=== PATIENT | male | born 1940 | race American Indian/Alaskan Native ===

== ENCOUNTER 2017-06-11 10:04 | Outpatient (CLI) | payer MEDICARE, OTHER ==
[2017-06-11 10:44] LABS: BASOPHILS % (AUTO) 0.6 %; EOSINOPHILS # (AUTO) 0.1 10^3/uL (0.0-0.7); HCT - HEMATOCRIT 38.1 % (42.0-52.0); HGB - HEMOGLOBIN 12.9 g/dL (14.0-18.0); LYMPHOCYTES # (AUTO) 1.7 10^3/uL (1.5-3.5); LYMPHOCYTES % (AUTO) 27.5 %; MEAN CORPUSCULAR HEMOGLOBIN 32.4 pg (27.0-31.0); MEAN CORPUSCULAR HGB CONC 33.9 g/dL (32.0-36.0); MEAN CORPUSCULAR VOLUME 95.5 fL (80.0-94.0); MEAN PLATELET VOLUME 8.8 fL (7.4-11.4); MONOCYTES # (AUTO) 0.6 10^3/uL (0.0-1.0); MONOCYTES % (AUTO) 9.6 %; NEUTROPHILS # (AUTO) 3.7 10^3/uL (1.5-6.6); NEUTROPHILS % (AUTO) 60.3 %; NUCLEATED RED BLOOD CELLS AUTO 0.2 /100WBC; RED BLOOD COUNT 3.99 10^6/uL (4.70-6.10); RED CELL DISTRIBUTION WIDTH 14.2 % (12.0-15.0); UNCORRECTED WHITE BLOOD COUNT 6.1 x10^3/uL; WHITE BLOOD COUNT 6.1 x10^3/uL (4.8-10.8)
[2017-06-11 10:58] LABS: PLATELET ESTIMATE, MANUAL NORMAL (130-450,000) (NORMAL); PLATELET MORPHOLOGY NORMAL APPEARANCE (NORMAL)
[2017-06-11 11:10] LABS: ALBUMIN/GLOBULIN RATIO 1.4 (1.0-2.2); BILIRUBIN,TOTAL 0.5 mg/dL (0.2-1.0); BUN - BLOOD UREA NITROGEN 24 mg/dL (6-20); CALCIUM 9.2 mg/dL (8.5-10.3); CARBON DIOXIDE - CO2 30 mmol/L (21-32); CHLORIDE 105 mmol/L (101-111); GFR - MDRD 72 (>89); GLUCOSE 103 mg/dL (70-100); POTASSIUM 4.2 mmol/L (3.5-5.0); SODIUM 141 mmol/L (135-145); TOTAL PROTEIN 6.9 g/dL (6.7-8.2)
== END 2017-06-11 10:05 | disposition home or self-care (01) ==
LOC: LAB 10:04
PROVIDERS: ATTEND Psychiatry & Neurology Neurology
DX: G40.109 Localization-related (focal) (partial) symptomatic epilepsy and epileptic syndromes with simple partial seizures, not intractable, without status epilepticus (principal); C61 Malignant neoplasm of prostate; G43.109 Migraine with aura, not intractable, without status migrainosus; T88.7XXA Unspecified adverse effect of drug or medicament, initial encounter; R20.2 Paresthesia of skin
CPT/HCPCS: 36415; 80053; 80164; 82140; 84153; 85025

== ENCOUNTER 2017-07-24 10:17 | Outpatient (CLI) | payer MEDICARE, OTHER | END 2017-07-24 10:18 | disposition critical access hospital (66) | LOC: EMS 10:17 | PROVIDERS: ATTEND Surgery | DX: R53.1 Weakness (principal); R26.2 Difficulty in walking, not elsewhere classified; R51 Headache | CPT/HCPCS: A0425; A0427 ==

== ENCOUNTER 2017-07-24 10:33 | Emergency (ER) | payer MEDICARE, OTHER ==
[2017-07-24 12:28] LABS: ALBUMIN/GLOBULIN RATIO 1.4 (1.0-2.2); BILIRUBIN,TOTAL 0.7 mg/dL (0.2-1.0); CALCIUM 8.8 mg/dL (8.5-10.3); CREATININE 0.8 mg/dL (0.6-1.2); POTASSIUM 3.9 mmol/L (3.5-5.0); TOTAL PROTEIN 6.6 g/dL (6.7-8.2)
[2017-07-24 12:30] LABS: BASOPHILS % (AUTO) 0.7 %; EOSINOPHILS % (AUTO) 0.5 %; HCT - HEMATOCRIT 36.8 % (42.0-52.0); HGB - HEMOGLOBIN 12.6 g/dL (14.0-18.0); LYMPHOCYTES # (AUTO) 1.3 10^3/uL (1.5-3.5); LYMPHOCYTES % (AUTO) 20.2 %; MEAN CORPUSCULAR HEMOGLOBIN 32.5 pg (27.0-31.0); MEAN CORPUSCULAR HGB CONC 34.3 g/dL (32.0-36.0); MEAN CORPUSCULAR VOLUME 94.9 fL (80.0-94.0); MEAN PLATELET VOLUME 9.7 fL (7.4-11.4); MONOCYTES # (AUTO) 0.5 10^3/uL (0.0-1.0); MONOCYTES % (AUTO) 6.9 %; NEUTROPHILS # (AUTO) 4.8 10^3/uL (1.5-6.6); NEUTROPHILS % (AUTO) 71.7 %; NUCLEATED RED BLOOD CELLS AUTO 0.1 /100WBC; RED BLOOD COUNT 3.88 10^6/uL (4.70-6.10); RED CELL DISTRIBUTION WIDTH 13.8 % (12.0-15.0); UNCORRECTED WHITE BLOOD COUNT 6.6 x10^3/uL; WHITE BLOOD COUNT 6.6 x10^3/uL (4.8-10.8)
[2017-07-24 12:43] LABS: PLATELET MORPHOLOGY RARE GIANT PLATELETS (NORMAL)
[2017-07-24 12:49] LABS: BILIRUBIN,URINE NEGATIVE (NEGATIVE); PH,URINE 7.5 PH (5.0-7.5)
[2017-07-24 12:50] LABS: UA CHARGE (STRIP ONLY) YES; UR CULTURE IF IND NOT INDICATED
[2017-07-24 13:35] LABS: MAGNESIUM 2.1 mg/dL (1.7-2.8); PHOSPHORUS 3.1 mg/dL (2.5-4.6)
--- NOTE | 2017-07-24 14:00 | CT Preliminary Report ---
Exam: CT HEAD W/O IMPRESSION: 1. Generalized age-related cortical atrophic changes without evidence of acute intracranial abnormali ty. 2. Curvilinear focus of increased density adjacent to the left-sided pars marginalis unchanged compar ed to 2013 is of unclear etiology. Differential considerations include possible developmental venous anomaly or small AVM. Contrast-enhanced MR angiography of the brain could be performed for further ev aluation. [facility] SITE ID: [id number]
--- NOTE | 2017-07-24 14:03 | CT Report ---
EXAM: CT HEAD EXAM DATE: 07/24/2017 01:41 PM. CLINICAL HISTORY: R leg weakness, h/o ICH. COMPARISON: 06/27/2013. TECHNIQUE: Multiaxial CT images were obtained from the foramen magnum to the vertex. IV contrast: Non e. Reformats: Coronal. In accordance with CT protocol optimization, one or more of the following dose reduction techniques w ere utilized for this exam: automated exposure control, adjustment of mA and/or KV based on patient s ize, or use of iterative reconstructive technique. FINDINGS: Parenchyma: No intraparenchymal hemorrhage. No evidence of mass, midline shift, or CT findings of acu te infarction. Small-white differentiation is distinct. Curvilinear focus of increased density adjacen t to the left pars marginalis is unchanged compared to 2013. Extraaxial Spaces: Normal for age. No subdural or epidural collections identified. Ventricles: The ventricles and cortical sulci are enlarged, consistent with age-related tissue loss. Sinuses and orbits: Imaged paranasal sinuses, orbits, and mastoids show no significant abnormality. Bones: No evidence of fracture or calvarial defect. Other: Diffuse chronic microangiopathic white matter changes are evident. IMPRESSION: 1. Generalized age-related cortical atrophic changes without evidence of acute intracranial abnormali ty. 2. Curvilinear focus of increased density adjacent to the left-sided pars marginalis unchanged compar ed to 2013 is of unclear etiology. Differential considerations include possible developmental venous anomaly or small AVM. Contrast-enhanced MR angiography of the brain could be performed for further ev aluation. [facility] Referring Provider Line: [phone] SITE ID: [id number]
--- NOTE | 2017-07-24 14:30 | ED Physician Documentation ---
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 He is to be on Keppra for this, but is recently changed to Depakote. Feels that he has had less control of his leg than usual over the past few days. He contacted his neurologist, Dr. seay, who has ordered an MRI as an outpatient for him. The patient also states he has had intermittent headaches for the past several days. Has not been sick recently. He had a recent Depakote level which revealed a subtherapeutic dose, therefore his dose was increased last night. Has not had any altered mental status. No fevers. No chills. Uses a walker for walking. Nothing seems to worsen the symptoms or improve the symptoms. He has had muscle spasms in the leg in the past and describes this as a "flopping". He has Valium and Ativan at home for this. No recent falls, but stumbled on the stairs and caught himself. Review of Systems Ten Systems: 10 systems reviewed and negative Constitutional: denies: Fever, Chills Ears: denies: Ear pain Nose: denies: Rhinorrhea / runny nose, Congestion Throat: denies: Sore throat Cardiac: denies: Chest pain / pressure Respiratory: denies: Cough GI: denies: Abdominal Pain, Nausea, Vomiting, Diarrhea : denies: Dysuria, Frequency, Hesitancy, Unable to Void, Incontinent Skin: denies: Rash Musculoskeletal: denies: Neck pain, Back pain Neurologic: denies: Focal weakness, Numbness, Confused, Altered mental status, Head injury, LOC PD PAST MEDICAL HISTORY - Past Medical History Past Medical History: Yes Cardiovascular: None Respiratory: None Neuro: Headache/migraine, Seizure disorder, Other Endocrine/Autoimmune: None GI: GERD : Kidney stones HEENT: None Psych: Anxiety Musculoskeletal: Osteoarthritis Derm: Psoriasis - Past Surgical History Past Surgical History: Yes General: Cholecystectomy, Appendectomy, Splenectomy Ortho: Hip replacement HEENT: Tonsil/Adenoidectomy - Present Medications Home Medications: Ambulatory Orders Medication Instructions Recorded Confirmed Aspirin EC [Ecotrin] 81 mg PO DAILY 06/27/13 07/24/17 LORazepam [Ativan] 0.5 mg PO ONCE 06/27/13 07/24/17 Omeprazole [PriLOSEC] 20 mg PO DAILY 06/27/13 07/24/17 Pregabalin [Lyrica] 100 mg PO HS 06/27/13 07/24/17 Vit A,C & E/Lutein/Minerals 1 each PO DAILY 06/27/13 07/24/17 [Ocuvite Tablet] Oxycodone HCl/Acetaminophen 1 each PO Q4-6H PRN 12/08/13 07/24/17 [Percocet 5-325 mg Tablet] Cyanocobalamin (Vitamin B-12) 1,000 mcg PO DAILY 02/09/14 07/24/17 [Vitamin B-12] Cholecalciferol (Vitamin D3) 2,000 units ORAL DAILY 05/03/14 07/24/17 [Vitamin D3] oxyCODONE ER [OxyCONTIN] 20 mg ORAL BID 05/03/14 07/24/17 Divalproex Sodium [Depakote] 750 mg PO DAILY 02/26/17 07/24/17 Sennosides [Senna Lax] 20 mg PO DAILY 02/26/17 07/24/17 - Allergies Allergies/Adverse Reactions: Allergies Allergy/AdvReac Type Severity Reaction Status Date / Time amitriptyline [Amitriptyline] Allergy Intermediate Hallucinati Verified 11:40 ons heparinoids Allergy Intermediate Rash Verified 05/03/14 11:40 - Social History Does the pt smoke?: No Smoking Status: Never smoker Does the pt drink ETOH?: Yes Does the pt have substance abuse?: No - Immunizations Immunizations are current?: Yes - POLST Patient has POLST: No PD ED PE NORMAL - Vitals Vital signs reviewed: Yes - General General: Alert and oriented X 3, No acute distress, Well developed/nourished - HEENT HEENT: Atraumatic, PERRL, EOMI, Ears normal, Moist mucous membranes, Pharynx benign - Neck Neck: Supple, no meningeal sign, No bony TTP - Cardiac Cardiac: RRR - Respiratory Respiratory: No respiratory distress, Clear bilaterally - Abdomen Abdomen: Soft, Non tender, Non distended - Derm Derm: Warm and dry, No rash - Extremities Extremities: No deformity, No tenderness to palpate, Normal ROM s pain, No edema , No calf tenderness / cord - Neuro Neuro: Alert and oriented X 3, 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, No motor deficit, No sensory deficit, Normal speech - Psych Psych: Normal mood, Normal affect - Free text exam Free text exam: NIHSS 0 Results - Vitals Vitals: Vital Signs - 24 hr 07/24/17 07/24/17 10:40 14:40 Temperature 36.8 C 36.6 C Heart Rate 55 L 58 L Respiratory 14 20 Rate Blood Pressure 160/80 H 135/70 H O2 Saturation 99 95 Oxygen O2 Source Room air - Labs Labs: Laboratory Tests 07/24/17 07/24/17 07/24/17 12:10 12:10 12:10 WBC 6.6 RBC 3.88 L Hgb 12.6 L Hct 36.8 L MCV 94.9 H MCH 32.5 H MCHC 34.3 RDW 13.8 Plt Count 213 MPV 9.7 Neut # 4.8 Lymph # 1.3 L [place] # 0.5 Eos # 0.0 Baso # 0.0 Absolute Nucleated RBC 0.00 Nucleated RBC % 0.1 Manual Slide Review Indicated Platelet Morphology RARE GIANT PLATELETS Sodium 137 Potassium 3.9 Chloride 103 Carbon Dioxide 26 Anion Gap 8.0 BUN 25 H Creatinine 0.8 Estimated GFR (MDRD) 93 Glucose 98 Calcium 8.8 Phosphorus 3.1 Magnesium 2.1 Total Bilirubin 0.7 AST 28 ALT 24 Alkaline Phosphatase 36 L Total Protein 6.6 L Albumin 3.9 Globulin 2.7 Albumin/Globulin Ratio 1.4 Lipase 19 L Urine Color Urine Clarity Urine pH Ur Specific [place] Urine Protein Urine Glucose (UA) Urine Ketones Urine Occult Blood Urine Nitrite Urine Bilirubin Urine Urobilinogen Ur Leukocyte Esterase Ur Microscopic Review Urine Culture Comments Last Dose Date UNKNOWN Last Dose Time UNKNOWN Valproic Acid 73.9 07/24/17 12:33 WBC RBC Hgb Hct MCV MCH MCHC RDW Plt Count MPV Neut # Lymph # [place] # Eos # Baso # Absolute Nucleated RBC Nucleated RBC % Manual Slide Review Platelet Morphology Sodium Potassium Chloride Carbon Dioxide Anion Gap BUN Creatinine Estimated GFR (MDRD) Glucose Calcium Phosphorus Magnesium Total Bilirubin AST ALT Alkaline Phosphatase Total Protein Albumin Globulin Albumin/Globulin Ratio Lipase Urine Color YELLOW Urine Clarity CLEAR Urine pH 7.5 Ur Specific [place] 1.010 Urine Protein NEGATIVE Urine Glucose (UA) NEGATIVE Urine Ketones NEGATIVE Urine Occult Blood NEGATIVE Urine Nitrite NEGATIVE Urine Bilirubin NEGATIVE Urine Urobilinogen 0.2 (NORMAL) Ur Leukocyte Esterase NEGATIVE Ur Microscopic Review NOT INDICATED Urine Culture Comments NOT INDICATED Last Dose Date Last Dose Time Valproic Acid - Rads (name of study) head CT Radiology: Prelim report reviewed, EMP read contemporaneously, See rad report ( Generalized age-related cortical atrophic changes without evidence of acute intracranial abnormality. 2. Curvilinear focus of increased density adjacent to the left-sided pars marginalis unchanged compared to 2013 is of unclear etiology. Differential considerations include possible developmental venous anomaly or small AVM. Contrast-enhanced MR angiography of the brain could be performed for further evaluation. ) PD MEDICAL DECISION MAKING - ED course Complexity details: reviewed old records, reviewed results, re-evaluated patient , considered differential, d/w patient, d/w family ED course: Patient is a 77-year-old male who presents to the emergency department with what sounds like worsening of his chronic proprioception issues with the right lower extremity as well as headaches for the past several days. No acute findings on CT of the head, but does have a curvilinear focus of increased density on CT scan that is unchanged for the past 4 years. He is scheduled for an outpatient MRI and will allow this to be evaluated at that time. No acute laboratory findings. His Depakote level is therapeutic here. We will have him follow-up with his PCP for further evaluation. Ambulating well in the emergency department. No evidence of acute stroke. No evidence of intracranial hemorrhage or ITP recurrence. Patient counseled regarding signs and symptoms for which I believe and urgent re-evaluation would be necessary. Patient with good understanding of and agreement to plan and is comfortable going home at this time This document was made in part using voice recognition software. While efforts are made to proofread this document, sound alike and grammatical errors may occur. Departure - Departure Disposition: 01 Home, Self Care Clinical Impression: Muscle spasm of right leg Condition: Good Instructions: ED Muscle Pain Leg Cramps Follow-Up: Norberto Newby MD [Primary Care Provider] - Within 3 Days Comments: You can use your lorazepam or Valium at home as needed for spasm. Your head CT does not show any acute abnormalities today, but there is a small area of increased density that is unchanged from 2013. When you have the MRI of your head, if this includes contrast, they will be able to get better images to what this might be. But does not appear related to your symptoms today. Discharge Date/Time: 07/24/17 14:50
[2017-07-24 14:41] VITALS: BP 135/70
== END 2017-07-24 14:50 | disposition home or self-care (01) ==
LOC: EDUNIT# → ED 10:33
DX: M62.838 Other muscle spasm (principal); G40.409 Other generalized epilepsy and epileptic syndromes, not intractable, without status epilepticus; K21.9 Gastro-esophageal reflux disease without esophagitis; Z87.442 Personal history of urinary calculi; M19.90 Unspecified osteoarthritis, unspecified site; Z79.82 Long term (current) use of aspirin
CPT/HCPCS: 36415; 70450; 80053; 80164; 81001; 81003; 83690; 83735; 84100; 85025; 87086; 99284

== ENCOUNTER 2017-10-27 10:24 | Outpatient (CLI) | payer MEDICARE, OTHER ==
[2017-10-27 11:11] LABS: VALPROIC ACID (DEPAKOTE) 84.5 ug/mL
== END 2017-10-27 10:25 | disposition home or self-care (01) ==
LOC: LAB 10:24
PROVIDERS: ATTEND Psychiatry & Neurology Neurology
DX: G40.209 Localization-related (focal) (partial) symptomatic epilepsy and epileptic syndromes with complex partial seizures, not intractable, without status epilepticus (principal); T88.7XXA Unspecified adverse effect of drug or medicament, initial encounter
CPT/HCPCS: 36415; 80164

== ENCOUNTER 2018-01-02 09:37 | Outpatient (CLI) | payer MEDICARE, OTHER ==
[2018-01-02 10:15] LABS: VALPROIC ACID (DEPAKOTE) 72.8 ug/mL
[2018-01-02 10:16] LABS: ALBUMIN 3.6 g/dL (3.2-5.5); BILIRUBIN,DIRECT 0.2 mg/dL (0.1-0.5); TOTAL PROTEIN 6.8 g/dL (6.7-8.2)
== END 2018-01-02 09:38 | disposition home or self-care (01) ==
LOC: LAB 09:37
PROVIDERS: ATTEND Physician Assistant
DX: R56.9 Unspecified convulsions (principal); R94.5 Abnormal results of liver function studies
CPT/HCPCS: 36415; 80076; 80164; 80175

== ENCOUNTER 2018-01-15 09:31 | Outpatient (CLI) | payer MEDICARE, OTHER ==
[2018-01-15 10:17] LABS: VALPROIC ACID (DEPAKOTE) 79.7 ug/mL
== END 2018-01-15 09:32 | disposition home or self-care (01) ==
LOC: LAB 09:31
PROVIDERS: ATTEND Physician Assistant
DX: R56.9 Unspecified convulsions (principal)
CPT/HCPCS: 36415; 80164; 80175

== ENCOUNTER 2018-01-23 08:00 | Outpatient (CLI) | payer MEDICARE, OTHER | END 2018-01-23 08:01 | disposition home or self-care (01) | LOC: LAB.R 08:00 | PROVIDERS: ATTEND Internal Medicine | DX: C61 Malignant neoplasm of prostate (principal) | CPT/HCPCS: 84153 ==

== ENCOUNTER 2018-01-30 09:57 | Outpatient (CLI) | payer MEDICARE, OTHER ==
[2018-01-30 10:31] LABS: ALBUMIN 3.8 g/dL (3.2-5.5); ALKALINE PHOSPHATASE 39 IU/L (42-121); ALT ALANINE AMINOTRANSFERASE 24 IU/L (10-60); AST ASPARTATE AMINOTRANSFERASE 32 IU/L (10-42); BILIRUBIN,DIRECT 0.2 mg/dL (0.1-0.5); BILIRUBIN,TOTAL 0.8 mg/dL (0.2-1.0); TOTAL PROTEIN 6.9 g/dL (6.7-8.2); VALPROIC ACID (DEPAKOTE) 98.5 ug/mL
== END 2018-01-30 09:58 | disposition home or self-care (01) ==
LOC: LAB 09:57
PROVIDERS: ATTEND Physician Assistant
DX: G40.209 Localization-related (focal) (partial) symptomatic epilepsy and epileptic syndromes with complex partial seizures, not intractable, without status epilepticus (principal); R56.9 Unspecified convulsions
CPT/HCPCS: 36415; 80076; 80164

== ENCOUNTER 2018-02-13 09:37 | Outpatient (CLI) | payer MEDICARE, OTHER ==
[2018-02-13 10:09] LABS: ALBUMIN 3.5 g/dL (3.2-5.5); ALKALINE PHOSPHATASE 31 IU/L (42-121); ALT ALANINE AMINOTRANSFERASE 17 IU/L (10-60); AST ASPARTATE AMINOTRANSFERASE 26 IU/L (10-42); BILIRUBIN,DIRECT 0.1 mg/dL (0.1-0.5); BILIRUBIN,TOTAL 0.9 mg/dL (0.2-1.0); TOTAL PROTEIN 6.7 g/dL (6.7-8.2); VALPROIC ACID (DEPAKOTE) 84.5 ug/mL
== END 2018-02-13 09:38 | disposition home or self-care (01) ==
LOC: LAB 09:37
PROVIDERS: ATTEND Physician Assistant
DX: R56.9 Unspecified convulsions (principal); G40.209 Localization-related (focal) (partial) symptomatic epilepsy and epileptic syndromes with complex partial seizures, not intractable, without status epilepticus
CPT/HCPCS: 36415; 80076; 80164

== ENCOUNTER 2018-02-27 10:59 | Outpatient (CLI) | payer MEDICARE, OTHER ==
[2018-02-27 11:35] LABS: ALBUMIN 3.4 g/dL (3.2-5.5); ALKALINE PHOSPHATASE 34 IU/L (42-121); ALT ALANINE AMINOTRANSFERASE 15 IU/L (10-60); AST ASPARTATE AMINOTRANSFERASE 25 IU/L (10-42); BILIRUBIN,DIRECT 0.1 mg/dL (0.1-0.5); BILIRUBIN,TOTAL 0.7 mg/dL (0.2-1.0); TOTAL PROTEIN 6.7 g/dL (6.7-8.2); VALPROIC ACID (DEPAKOTE) 91.3 ug/mL
== END 2018-02-27 11:00 | disposition home or self-care (01) ==
LOC: LAB 10:59
PROVIDERS: ATTEND Physician Assistant
DX: R56.9 Unspecified convulsions (principal); G40.209 Localization-related (focal) (partial) symptomatic epilepsy and epileptic syndromes with complex partial seizures, not intractable, without status epilepticus
CPT/HCPCS: 36415; 80076; 80164; 80175

== ENCOUNTER 2018-03-09 16:45 | Outpatient (CLI) | payer MEDICARE, OTHER ==
[2018-03-09 18:12] LABS: BASOPHILS % (AUTO) 0.4 %; EOSINOPHILS # (AUTO) 0.1 10^3/uL (0.0-0.7); EOSINOPHILS % (AUTO) 0.9 %; HGB - HEMOGLOBIN 12.5 g/dL (14.0-18.0); LYMPHOCYTES # (AUTO) 1.9 10^3/uL (1.5-3.5); LYMPHOCYTES % (AUTO) 28.9 %; MEAN CORPUSCULAR HEMOGLOBIN 33.3 pg (27.0-31.0); MEAN CORPUSCULAR HGB CONC 33.3 g/dL (32.0-36.0); MEAN CORPUSCULAR VOLUME 100.2 fL (80.0-94.0); MONOCYTES # (AUTO) 0.6 10^3/uL (0.0-1.0); MONOCYTES % (AUTO) 8.8 %; NEUTROPHILS # (AUTO) 3.9 10^3/uL (1.5-6.6); PLT - PLATELET COUNT 168 10^3/uL (130-450); RED BLOOD COUNT 3.76 10^6/uL (4.70-6.10); RED CELL DISTRIBUTION WIDTH 13.9 % (12.0-15.0); WHITE BLOOD COUNT 6.5 x10^3/uL (4.8-10.8)
[2018-03-09 18:54] LABS: ALBUMIN 3.5 g/dL (3.2-5.5); BILIRUBIN,TOTAL 0.7 mg/dL (0.2-1.0); CALCIUM 9.6 mg/dL (8.5-10.3); TOTAL PROTEIN 6.9 g/dL (6.7-8.2)
[2018-03-09 18:56] LABS: PLATELET ESTIMATE, MANUAL NORMAL (130-450,000) (NORMAL); PLATELET MORPHOLOGY 1+ GIANT PLATELETS (NORMAL); RBC MORPHOLOGY (MULTIPLE) NORMAL APPEARANCE (NORMAL)
== END 2018-03-09 16:46 | disposition home or self-care (01) ==
LOC: LAB.R 16:45
PROVIDERS: ATTEND Internal Medicine
DX: R10.9 Unspecified abdominal pain (principal)
CPT/HCPCS: 80053; 83690; 85025

== ENCOUNTER 2018-04-03 09:54 | Outpatient (CLI) | payer MEDICARE, OTHER ==
[2018-04-03 10:35] LABS: ALBUMIN 3.3 g/dL (3.2-5.5); ALKALINE PHOSPHATASE 34 IU/L (42-121); ALT ALANINE AMINOTRANSFERASE 17 IU/L (10-60); AST ASPARTATE AMINOTRANSFERASE 26 IU/L (10-42); BILIRUBIN,DIRECT 0.1 mg/dL (0.1-0.5); BILIRUBIN,TOTAL 0.6 mg/dL (0.2-1.0); TOTAL PROTEIN 6.8 g/dL (6.7-8.2); VALPROIC ACID (DEPAKOTE) 84.6 ug/mL
== END 2018-04-03 09:55 | disposition home or self-care (01) ==
LOC: LAB 09:54
PROVIDERS: ATTEND Physician Assistant
DX: R56.9 Unspecified convulsions (principal)
CPT/HCPCS: 36415; 80076; 80164; 82140

== ENCOUNTER 2018-05-01 09:53 | Outpatient (CLI) | payer MEDICARE, OTHER ==
[2018-05-01 10:32] LABS: ALBUMIN 3.3 g/dL (3.2-5.5); ALKALINE PHOSPHATASE 38 IU/L (42-121); ALT ALANINE AMINOTRANSFERASE 21 IU/L (10-60); AST ASPARTATE AMINOTRANSFERASE 33 IU/L (10-42); BILIRUBIN,DIRECT 0.1 mg/dL (0.1-0.5); BILIRUBIN,TOTAL 0.9 mg/dL (0.2-1.0); TOTAL PROTEIN 6.7 g/dL (6.7-8.2); VALPROIC ACID (DEPAKOTE) 105.4 ug/mL
== END 2018-05-01 09:54 | disposition home or self-care (01) ==
LOC: LAB 09:53
PROVIDERS: ATTEND Physician Assistant
DX: R56.9 Unspecified convulsions (principal)
CPT/HCPCS: 36415; 80076; 80164; 82140

== ENCOUNTER 2018-05-07 10:48 | Outpatient (CLI) | payer MEDICARE, OTHER ==
[2018-05-07] MEDS ORDERED: IOPAMIDOL-300 100 ML VIAL ONE (11:14)
[2018-05-07] MEDS ORDERED: IOPAMIDOL-300 50 ML VIAL ONE (11:14)
[2018-05-07 11:18] LABS: CREATININE 0.9 mg/dL (0.6-1.2)
[2018-05-07] MEDS ORDERED: IOPAMIDOL-300 100 ML VIAL IVP ONE (13:26)
[2018-05-07] MEDS ORDERED: IOPAMIDOL-300 50 ML VIAL PO ONE (13:26)
--- NOTE | 2018-05-07 16:37 | CT Report ---
Procedure Date: 05/07/2018 Accession Number: [id number] / [id number] Procedure: CT - Abdomen W/WO CPT Code: FULL RESULT: EXAM: Abdomen W/WO DATE: 05/07/2018 1:12 PM CLINICAL HISTORY: ABDOMINAL PAIN COMPARISON: None. TECHNIQUE: Routine helical CT imaging was performed through the abdomen with and without contrast. IV contrast: 100 mL of Isovue 300. Enteric contrast: Yes.. Reconstruction: Coronal and sagittal. In accordance with CT protocol optimization, one or more of the following dose reduction techniques were utilized for this exam: automated exposure control, adjustment of mA and/or KV based on patient size, or use of iterative reconstructive technique. FINDINGS: The patient is status post splenectomy and cholecystectomy. The liver, adrenal glands, kidneys and pancreas are unremarkable with the exception of renal hypodensities which are too small to characterize. There is no bowel obstruction, free air or free fluid. There is no lymphadenopathy. There is no aggressive osseous lesion. The aorta is atherosclerotic. IMPRESSION: No acute abnormality. [facility]
== END 2018-05-07 10:49 | disposition home or self-care (01) ==
LOC: DI 10:48
PROVIDERS: ATTEND Internal Medicine
DX: R10.9 Unspecified abdominal pain (principal)
CPT/HCPCS: 36415; 74170; 82565; Q9967

== ENCOUNTER 2018-05-09 20:00 | Emergency (ER) | payer MEDICARE, OTHER ==
[2018-05-09] MEDS ORDERED: METOCLOPRAMIDE 10 MG/2 ML VIAL IVP STA (20:27)
[2018-05-09] MEDS ORDERED: fentaNYL 100 MCG/2 ML VIAL IVP STA (20:27)
[2018-05-09] MEDS ORDERED: SODIUM CHLORIDE 0.9% 1,000 ML IV ONE (20:27)
--- NOTE | 2018-05-09 20:31 | ED Physician Documentation ---
History of Present Illness - Stated complaint Stated Complaint: ABD PX - Chief complaint Chief Complaint: Abd Pain - History obtained from History obtained from: Patient, Family - Additonal information Additional information: 78-year-old male presents the emergency department with ongoing intermittent chronic abdominal pain. The patient reports a generalized abdominal pain over the past several days. The patient was recently seen by his primary care and had an outpatient workup which included a CT scan. The patient reports decreased appetite. The patient denies vomiting, fevers, diarrhea or focal area of abdominal pain. This is similar to prior episodes of abdominal pain in the past. No triggering factors. No relieving factors. Symptoms are described as moderate Review of Systems Constitutional: reports: Fatigue. denies: Fever Eyes: denies: Discharge Ears: denies: Ear pain Throat: denies: Sore throat Cardiac: denies: Chest pain / pressure Respiratory: denies: Dyspnea GI: denies: Abdominal Pain : denies: Dysuria Skin: denies: Rash Musculoskeletal: denies: Neck pain Neurologic: denies: Generalized weakness Immunocompromised: denies: Chemotherapy PD PAST MEDICAL HISTORY - Past Medical History Cardiovascular: None Respiratory: None Endocrine/Autoimmune: None GI: GERD : Kidney stones HEENT: None Psych: Anxiety Musculoskeletal: Osteoarthritis Derm: Psoriasis - Past Surgical History Past Surgical History: Yes General: Cholecystectomy, Appendectomy, Splenectomy Ortho: Hip replacement HEENT: Tonsil/Adenoidectomy - Present Medications Home Medications: Ambulatory Orders Medication Instructions Recorded Confirmed Aspirin EC [Ecotrin] 81 mg PO DAILY 06/27/13 05/06/18 LORazepam [Ativan] 0.5 mg PO ONCE 06/27/13 05/06/18 Omeprazole [PriLOSEC] 20 mg PO DAILY 06/27/13 05/06/18 Pregabalin [Lyrica] 100 mg PO HS 06/27/13 05/06/18 Vit A,C & E/Lutein/Minerals 1 each PO DAILY 06/27/13 05/06/18 [Ocuvite Tablet] Cyanocobalamin (Vitamin B-12) 1,000 mcg PO DAILY 02/09/14 05/06/18 [Vitamin B-12] Cholecalciferol (Vitamin D3) 2,000 units ORAL DAILY 05/03/14 05/06/18 [Vitamin D3] oxyCODONE ER [OxyCONTIN] 20 mg ORAL BID 05/03/14 05/06/18 Divalproex Sodium [Depakote] 750 mg PO DAILY 02/26/17 05/06/18 Sennosides [Senna Lax] 20 mg PO DAILY 02/26/17 05/06/18 Divalproex Sodium [Depakote] 1,000 mg PO QPM 05/06/18 05/06/18 Levocarnitine Tartrate 250 mg PO 05/09/18 [l-Carnitine] - Allergies Allergies/Adverse Reactions: Allergies Allergy/AdvReac Type Severity Reaction Status Date / Time amitriptyline [Amitriptyline] Allergy Intermediate Hallucinati Verified 20:15 ons heparinoids Allergy Intermediate Rash Verified 05/09/18 20:15 - Social History Does the pt smoke?: No Smoking Status: Never smoker Does the pt drink ETOH?: Yes Does the pt have substance abuse?: No - Immunizations Immunizations are current?: Yes - POLST Patient has POLST: No PD ED PE NORMAL - General General: Alert and oriented X 3, No acute distress - HEENT HEENT: Atraumatic, PERRL, EOMI, Ears normal, Moist mucous membranes - Neck Neck: Supple, no meningeal sign - Cardiac Cardiac: RRR, Strong equal pulses - Respiratory Respiratory: No respiratory distress, Clear bilaterally - Abdomen Abdomen: Soft, Non distended. No: Non tender (The patient has generalized tenderness to palpation, there is no rebound or peritoneal signs) - Derm Derm: Normal color. No: No rash - Neuro Neuro: Alert and oriented X 3, Normal speech - Psych Psych: Normal mood Results - Vitals Vitals: Vital Signs - 24 hr 05/09/18 05/09/18 05/09/18 20:10 21:42 22:41 Temperature 37.0 C Heart Rate 74 70 70 Respiratory 14 17 16 Rate Blood Pressure 147/92 H 160/78 H 136/68 H O2 Saturation 99 98 99 Oxygen O2 Source Room air - EKG (time done) 21:41 Rate: Rate (enter#) Rhythm: NSR Intervals: Normal IN, Other (Incomplete right bundle branch block) Ischemia: Non specific changes Compare to prior EKG: Unchanged from prior EKG - Labs Labs: Laboratory Tests 05/09/18 05/09/18 05/09/18 20:30 20:30 20:30 WBC 7.8 RBC 3.63 L Hgb 12.4 L Hct 36.3 L MCV 99.9 H MCH 34.1 H MCHC 34.1 RDW 13.3 Plt Count 142 MPV 10.9 Neut # (Auto) 5.6 Lymph # (Auto) 1.3 L [place] # (Auto) 0.9 Eos # (Auto) 0.0 Baso # (Auto) 0.1 Absolute Nucleated RBC 0.01 Nucleated RBC % 0.1 Manual Slide Review Indicated WBC Morphology NORMAL APPEARANCE Platelet Estimate NORMAL (130-450,000) Platelet Morphology RARE GIANT PLATELETS RBC Morph Micro Appear 1+ MACROCYTOSIS PT INR APTT Sodium 136 Potassium 4.2 Chloride 100 L Carbon Dioxide 29 Anion Gap 7.0 BUN 27 H Creatinine 0.9 Estimated GFR (MDRD) 81 L Glucose 119 H Calcium 9.6 Total Bilirubin 0.7 AST 30 ALT 17 Alkaline Phosphatase 40 L Troponin I < 0.04 Total Protein 7.2 Albumin 3.7 Globulin 3.5 Albumin/Globulin Ratio 1.1 Lipase 95 H Urine Color Urine Clarity Urine pH Ur Specific [place] Urine Protein Urine Glucose (UA) Urine Ketones Urine Occult Blood Urine Nitrite Urine Bilirubin Urine Urobilinogen Ur Leukocyte Esterase Ur Microscopic Review Urine Culture Comments Last Dose Date Last Dose Time Valproic Acid 05/09/18 05/09/18 05/09/18 20:30 20:30 20:55 WBC RBC Hgb Hct MCV MCH MCHC RDW Plt Count MPV Neut # (Auto) Lymph # (Auto) [place] # (Auto) Eos # (Auto) Baso # (Auto) Absolute Nucleated RBC Nucleated RBC % Manual Slide Review WBC Morphology Platelet Estimate Platelet Morphology RBC Morph Micro Appear PT 12.2 INR 1.1 APTT 28.1 Sodium Potassium Chloride Carbon Dioxide Anion Gap BUN Creatinine Estimated GFR (MDRD) Glucose Calcium Total Bilirubin AST ALT Alkaline Phosphatase Troponin I Total Protein Albumin Globulin Albumin/Globulin Ratio Lipase Urine Color YELLOW Urine Clarity CLEAR Urine pH 7.0 Ur Specific [place] 1.010 Urine Protein NEGATIVE Urine Glucose (UA) NEGATIVE Urine Ketones NEGATIVE Urine Occult Blood NEGATIVE Urine Nitrite NEGATIVE Urine Bilirubin NEGATIVE Urine Urobilinogen 0.2 (NORMAL) Ur Leukocyte Esterase NEGATIVE Ur Microscopic Review NOT INDICATED Urine Culture Comments NOT INDICATED Last Dose Date UNKNOWN Last Dose Time UNKNOWN Valproic Acid 93.6 - Rads (name of study) US Abdomen Radiology: Final report received Acute Abdominal series Radiology: Final report received (Impression: 1. No acute disease in the chest 2. No bowel obstruction 3. No free air for. Small to moderate volume of stool in the colon high density ingested material contrast present in the distal colon) CT scan abdomen pelvis Radiology: Final report received (Impression: No acute abnormality) PD MEDICAL DECISION MAKING - ED course ED course: On reevaluation the patient is resting comfortably and appears to be in no acute distress. The patient's symptoms are under better control. The patient' s workup today does not reveal a clear etiology for the source of his symptoms. The patient had a CT scan of his abdomen pelvis 2 days ago and currently I do not think he needs a repeat CT scan. The patient currently appears appropriate for discharge home in ongoing outpatient management. I discussed close follow- up with primary care and advised that he may need a referral to GI for further workup of his ongoing chronic abdominal pain. It also appears that the patient may have some constipation related to his chronic pain medications. I discussed various methods for a bowel regimen. They understand and agree to the plan. I discussed warning signs and recommended returning to the emergency department immediately for worsening or any concerns - Sepsis Event Vital Signs: Vital Signs - 24 hr 05/09/18 05/09/18 05/09/18 20:10 21:42 22:41 Temperature 37.0 C Heart Rate 74 70 70 Respiratory 14 17 16 Rate Blood Pressure 147/92 H 160/78 H 136/68 H O2 Saturation 99 98 99 Oxygen O2 Source Room air Departure - Departure Disposition: 01 Home, Self Care Clinical Impression: Abdominal pain Qualifiers: Abdominal location: generalized Qualified Code(s): R10.84 - Generalized abdominal pain Condition: Good Instructions: Abdominal Pain Follow-Up: Norberto Newby MD [Primary Care Provider] - Within 3 Days (Please ask your PMD to arrange for an outpatient GI Referral) Comments: Please return to the emergency department for worsening symptoms or any concerns
[2018-05-09 20:42] LABS: BASOPHILS # (AUTO) 0.1 10^3/uL (0.0-0.1); BASOPHILS % (AUTO) 0.9 %; EOSINOPHILS % (AUTO) 0.3 %; HGB - HEMOGLOBIN 12.4 g/dL (14.0-18.0); LYMPHOCYTES # (AUTO) 1.3 10^3/uL (1.5-3.5); LYMPHOCYTES % (AUTO) 16.2 %; MEAN CORPUSCULAR HEMOGLOBIN 34.1 pg (27.0-31.0); MEAN CORPUSCULAR HGB CONC 34.1 g/dL (32.0-36.0); MEAN CORPUSCULAR VOLUME 99.9 fL (80.0-94.0); MEAN PLATELET VOLUME 10.9 fL (7.4-11.4); MONOCYTES # (AUTO) 0.9 10^3/uL (0.0-1.0); MONOCYTES % (AUTO) 11.2 %; NEUTROPHILS # (AUTO) 5.6 10^3/uL (1.5-6.6); NEUTROPHILS % (AUTO) 71.4 %; PLT - PLATELET COUNT 142 10^3/uL (130-450); RED BLOOD COUNT 3.63 10^6/uL (4.70-6.10); RED CELL DISTRIBUTION WIDTH 13.3 % (12.0-15.0); WHITE BLOOD COUNT 7.8 x10^3/uL (4.8-10.8)
[2018-05-09 20:48] LABS: ALBUMIN 3.7 g/dL (3.2-5.5); ALBUMIN/GLOBULIN RATIO 1.1 (1.0-2.2); BILIRUBIN,TOTAL 0.7 mg/dL (0.2-1.0); CALCIUM 9.6 mg/dL (8.5-10.3); CREATININE 0.9 mg/dL (0.6-1.2); TOTAL PROTEIN 7.2 g/dL (6.7-8.2)
[2018-05-09 20:53] LABS: VALPROIC ACID (DEPAKOTE) 93.6 ug/mL
[2018-05-09 20:55] LABS: PLATELET ESTIMATE, MANUAL NORMAL (130-450,000) (NORMAL); PLATELET MORPHOLOGY RARE GIANT PLATELETS (NORMAL); RBC MORPHOLOGY (MULTIPLE) 1+ MACROCYTOSIS (NORMAL)
[2018-05-09 21:00] LABS: BILIRUBIN,URINE NEGATIVE (NEGATIVE); GLUCOSE, URINE (UA) NEGATIVE (NEGATIVE); KETONES,URINE (UA) NEGATIVE (NEGATIVE); LEUKOCYTE ESTERASE, URINE NEGATIVE (NEGATIVE); NITRITE,URINE NEGATIVE (NEGATIVE); OCCULT BLOOD,URINE NEGATIVE (NEGATIVE); PROTEIN,URINE NEGATIVE (NEGATIVE); UROBILINOGEN,URINE 0.2 (NORMAL) E.U./dL (NORMAL)
[2018-05-09 21:05] LABS: CLARITY,URINE CLEAR (CLEAR)
[2018-05-09 21:10] LABS: INR 1.1 (0.8-1.2); PT - PROTHROMBIN TIME 12.2 secs (9.9-12.6)
[2018-05-09] MEDS ORDERED: LORazepam 2 MG/ML VIAL IVP STA (21:22)
--- NOTE | 2018-05-09 21:36 | XRAY Report ---
Procedure Date: 05/09/2018 Accession Number: [id number] / [id number] Procedure: XR - Abdomen Acute CPT Code: FULL RESULT: EXAM: ABDOMINAL SERIES AND PA CHEST EXAM DATE: 05/09/2018 09:16 PM. CLINICAL HISTORY: Abdominal pain. Chronic abdominal pain worse for 3 days. COMPARISON: 05/07/2018. 01/12/2010. TECHNIQUE: 2 views abdomen and 1 view chest. FINDINGS: CHEST: Lungs/Pleura: No focal opacities. No effusion or pneumothorax. Mediastinum: Heart size upper normal. Aorta is tortuous. Aortic atherosclerosis. ABDOMEN: Bowel Gas Pattern: No bowel dilatation. Mild gaseous distention of small bowel and colon. High density ingested material/contrast present in the distal colon. Small to moderate volume of stool in the colon. No portal venous gas or pneumatosis. Free Air: None. Other: Status post cholecystectomy. Degenerative changes of the thoracic and lumbar spine. IMPRESSION: 1. No acute disease in the chest. 2. No bowel obstruction. 3. No free air. 4. Small to moderate volume of stool in the colon. High density ingested material/contrast present in the distal colon. [facility]
--- NOTE | 2018-05-09 23:10 | Ultrasound Report ---
Procedure Date: 05/09/2018 Accession Number: [id number] / [id number] Procedure: US - Abdomen Limited CPT Code: FULL RESULT: EXAM: ABDOMEN ULTRASOUND LIMITED, RUQ EXAM DATE: 05/09/2018 09:33 PM. CLINICAL HISTORY: Abdominal pain. COMPARISON: CT 05/07/2018. TECHNIQUE: Real-time scanning was performed with static images obtained. FINDINGS: Liver: Normal in size and echotexture. 13.9 cm. Main portal vein flow: Hepatopetal. Gallbladder: Surgically absent. Biliary System: CBD measures 5 mm. No intrahepatic or extrahepatic ductal dilatation. Other: No right hydronephrosis. No free fluid. IMPRESSION: No evidence of biliary obstruction. Postoperative changes of cholecystectomy. [facility]
[2018-05-09 23:46] VITALS: BP 132/68
== END 2018-05-09 23:40 | disposition home or self-care (01) ==
LOC: ED 20:00
DX: R10.84 Generalized abdominal pain (principal); I45.10 Unspecified right bundle-branch block; G89.29 Other chronic pain; Z96.649 Presence of unspecified artificial hip joint; Z79.82 Long term (current) use of aspirin
CPT/HCPCS: 36415; 74022; 76705; 80053; 80164; 81003; 83690; 84484; 85025; 85610; 85730; 93005; 96361; 96374; 99283; 99284; J2765; 81001; 87086

== ENCOUNTER 2018-06-04 09:52 | Outpatient (CLI) | payer MEDICARE, OTHER ==
[2018-06-04 10:24] LABS: ALBUMIN 3.5 g/dL (3.2-5.5); ALKALINE PHOSPHATASE 38 IU/L (42-121); ALT ALANINE AMINOTRANSFERASE 15 IU/L (10-60); AST ASPARTATE AMINOTRANSFERASE 31 IU/L (10-42); BILIRUBIN,DIRECT 0.2 mg/dL (0.1-0.5); BILIRUBIN,TOTAL 0.8 mg/dL (0.2-1.0); TOTAL PROTEIN 7.3 g/dL (6.7-8.2); VALPROIC ACID (DEPAKOTE) 83.8 ug/mL
== END 2018-06-04 09:53 | disposition home or self-care (01) ==
LOC: LAB 09:52
PROVIDERS: ATTEND Physician Assistant
DX: R56.9 Unspecified convulsions (principal)
CPT/HCPCS: 36415; 80076; 80164; 82140

== ENCOUNTER 2018-07-03 09:49 | Outpatient (CLI) | payer MEDICARE, OTHER ==
[2018-07-03 10:32] LABS: ALBUMIN 3.4 g/dL (3.2-5.5); ALKALINE PHOSPHATASE 40 IU/L (42-121); ALT ALANINE AMINOTRANSFERASE 19 IU/L (10-60); AST ASPARTATE AMINOTRANSFERASE 34 IU/L (10-42); BILIRUBIN,DIRECT 0.1 mg/dL (0.1-0.5); BILIRUBIN,TOTAL 0.7 mg/dL (0.2-1.0); TOTAL PROTEIN 6.7 g/dL (6.7-8.2); VALPROIC ACID (DEPAKOTE) 108.4 ug/mL
== END 2018-07-03 09:50 | disposition home or self-care (01) ==
LOC: LAB 09:49
PROVIDERS: ATTEND Physician Assistant
DX: R56.9 Unspecified convulsions (principal)
CPT/HCPCS: 36415; 80076; 80164; 82140

== ENCOUNTER 2018-08-05 10:13 | Outpatient (CLI) | payer MEDICARE, OTHER ==
[2018-08-05 10:52] LABS: ALBUMIN 3.4 g/dL (3.2-5.5); ALKALINE PHOSPHATASE 39 IU/L (42-121); ALT ALANINE AMINOTRANSFERASE 17 IU/L (10-60); AST ASPARTATE AMINOTRANSFERASE 27 IU/L (10-42); BILIRUBIN,DIRECT 0.1 mg/dL (0.1-0.5); BILIRUBIN,TOTAL 0.7 mg/dL (0.2-1.0); TOTAL PROTEIN 6.8 g/dL (6.7-8.2); VALPROIC ACID (DEPAKOTE) 86.1 ug/mL
== END 2018-08-05 10:14 | disposition home or self-care (01) ==
LOC: LAB 10:13
PROVIDERS: ATTEND Physician Assistant
DX: R56.9 Unspecified convulsions (principal)
CPT/HCPCS: 36415; 80076; 80164; 82140

== ENCOUNTER 2018-09-04 10:45 | Outpatient (CLI) | payer MEDICARE, OTHER ==
[2018-09-04 11:19] LABS: ALBUMIN 3.4 g/dL (3.2-5.5); ALKALINE PHOSPHATASE 40 IU/L (42-121); ALT ALANINE AMINOTRANSFERASE 13 IU/L (10-60); AST ASPARTATE AMINOTRANSFERASE 27 IU/L (10-42); BILIRUBIN,DIRECT 0.1 mg/dL (0.1-0.5); BILIRUBIN,TOTAL 0.6 mg/dL (0.2-1.0); TOTAL PROTEIN 6.5 g/dL (6.7-8.2); VALPROIC ACID (DEPAKOTE) 93.6 ug/mL
== END 2018-09-04 10:46 | disposition home or self-care (01) ==
LOC: LAB 10:45
PROVIDERS: ATTEND Physician Assistant
DX: R56.9 Unspecified convulsions (principal)
CPT/HCPCS: 36415; 80076; 80164; 82140

== ENCOUNTER 2018-09-28 03:05 | Outpatient (CLI) | payer MEDICARE, OTHER | END 2018-09-28 03:06 | disposition critical access hospital (66) | LOC: EMS 03:05 | PROVIDERS: ATTEND Surgery | DX: R07.9 Chest pain, unspecified (principal) | CPT/HCPCS: A0425; A0427 ==

== ENCOUNTER 2018-09-28 03:21 | Emergency (ER) | payer MEDICARE, OTHER ==
--- NOTE | 2018-09-28 03:51 | ED Physician Documentation ---
PD HPI CHEST PAIN - Stated complaint Stated Complaint: CP - Chief complaint Chief Complaint: Cardiac - History obtained from History obtained from: Patient, EMS - History of Present Illness Timing - onset: How many days ago (2) Timing - onset during: Rest. No: Light activity Timing - duration: Days (2) Timing - details: Gradual onset, Intermittant, Waxing and waning Quality: Aching, Pain Location: Epigastric Review of Systems Constitutional: denies: Fever, Chills Nose: denies: Rhinorrhea / runny nose, Congestion Throat: denies: Sore throat Respiratory: denies: Cough GI: reports: Abdominal Pain. denies: Nausea, Vomiting, Diarrhea : denies: Dysuria, Frequency PD PAST MEDICAL HISTORY - Past Medical History Cardiovascular: None Respiratory: None Endocrine/Autoimmune: None GI: GERD : Kidney stones HEENT: None Psych: Anxiety Musculoskeletal: Osteoarthritis Derm: Psoriasis - Past Surgical History Past Surgical History: Yes General: Cholecystectomy, Appendectomy, Splenectomy Ortho: Hip replacement HEENT: Tonsil/Adenoidectomy - Present Medications Home Medications: Ambulatory Orders Medication Instructions Recorded Confirmed Aspirin EC [Ecotrin] 81 mg PO DAILY 06/27/13 05/06/18 LORazepam [Ativan] 0.5 mg PO ONCE 06/27/13 05/06/18 Omeprazole [PriLOSEC] 20 mg PO DAILY 06/27/13 05/06/18 Pregabalin [Lyrica] 100 mg PO HS 06/27/13 05/06/18 Vit A,C & E/Lutein/Minerals 1 each PO DAILY 06/27/13 05/06/18 [Ocuvite Tablet] Cyanocobalamin (Vitamin B-12) 1,000 mcg PO DAILY 02/09/14 05/06/18 [Vitamin B-12] Cholecalciferol (Vitamin D3) 2,000 units ORAL DAILY 05/03/14 05/06/18 [Vitamin D3] oxyCODONE ER [OxyCONTIN] 20 mg ORAL BID 05/03/14 05/06/18 Divalproex Sodium [Depakote] 750 mg PO DAILY 02/26/17 05/06/18 Sennosides [Senna Lax] 20 mg PO DAILY 02/26/17 05/06/18 Divalproex Sodium [Depakote] 1,000 mg PO QPM 05/06/18 05/06/18 Levocarnitine Tartrate 250 mg PO 05/09/18 [l-Carnitine] Famotidine 20 mg PO DAILY #30 tablet 09/28/18 Lidocaine Viscous 2% [Xylocaine 5 ml PO Q4H PRN #100 ml 09/28/18 Viscous 2%] - Allergies Allergies/Adverse Reactions: Allergies Allergy/AdvReac Type Severity Reaction Status Date / Time amitriptyline [Amitriptyline] Allergy Intermediate Hallucinati Verified 09/28/18 03:38 ons heparinoids Allergy Intermediate Rash Verified 09/28/18 03:38 - Social History Does the pt smoke?: No Smoking Status: Never smoker Does the pt drink ETOH?: Yes Does the pt have substance abuse?: No - Immunizations Immunizations are current?: Yes - POLST Patient has POLST: No PD ED PE NORMAL - Vitals Vital signs reviewed: Yes - General General: Alert and oriented X 3, No acute distress, Well developed/nourished - HEENT HEENT: Moist mucous membranes, Pharynx benign - Neck Neck: Supple, no meningeal sign, No adenopathy - Cardiac Cardiac: RRR, No murmur - Respiratory Respiratory: Clear bilaterally - Abdomen Abdomen: Normal bowel sounds, Soft, Non distended, No organomegaly, Other (tender epigastric area without guarding nor percussion tender. ) - Male Male : Deferred - Rectal Rectal: Deferred - Back Back: No CVA TTP - Derm Derm: Normal color, Warm and dry - Extremities Extremities: No deformity, Normal ROM s pain, No calf tenderness / cord, Other (1+ edema in both legs. ) - Neuro Neuro: Alert and oriented X 3, No motor deficit, Normal speech Results - Vitals Vitals: Vital Signs - 24 hr 09/28/18 09/28/18 09/28/18 03:22 05:04 06:04 Temperature 37.1 C Heart Rate 70 58 L 55 L Respiratory 18 13 12 Rate Blood Pressure 131/81 H 121/66 129/72 O2 Saturation 97 95 96 Oxygen O2 Source Room air - Labs Labs: Laboratory Tests 09/28/18 09/28/18 09/28/18 03:50 03:50 03:50 WBC 7.7 RBC 3.31 L Hgb 11.4 L Hct 34.5 L MCV 104.3 H MCH 34.6 H MCHC 33.1 RDW 13.8 Plt Count 95 L MPV 10.8 Neut # (Auto) 1.2 L Lymph # (Auto) 2.3 [place] # (Auto) 4.2 H Eos # (Auto) 0.1 Baso # (Auto) 0.0 Absolute Nucleated RBC 0.00 Nucleated RBC % 0.0 Sodium 138 Potassium 3.9 Chloride 104 Carbon Dioxide 27 Anion Gap 7.0 BUN 31 H Creatinine 0.7 Estimated GFR (MDRD) 109 Glucose 115 H Calcium 9.3 Magnesium Total Bilirubin 0.4 AST 22 ALT 11 Alkaline Phosphatase 39 L Troponin I < 0.04 Total Protein 6.6 L Albumin 3.2 Globulin 3.4 Albumin/Globulin Ratio 0.9 L Lipase 810 H 09/28/18 03:50 WBC RBC Hgb Hct MCV MCH MCHC RDW Plt Count MPV Neut # (Auto) Lymph # (Auto) [place] # (Auto) Eos # (Auto) Baso # (Auto) Absolute Nucleated RBC Nucleated RBC % Sodium Potassium Chloride Carbon Dioxide Anion Gap BUN Creatinine Estimated GFR (MDRD) Glucose Calcium Magnesium 1.9 Total Bilirubin AST ALT Alkaline Phosphatase Troponin I Total Protein Albumin Globulin Albumin/Globulin Ratio Lipase PD MEDICAL DECISION MAKING - ED course Complexity details: reviewed results, re-evaluated patient (He is not really that uncomfortable and is able to swallow liquids. He did get some improvement with a GI cocktail so there may be some element of gastritis as well. I think you would be able to do treatment at home and is stable for discharge. I talked with his who is in accordance with the plan.), considered differential (Consider heart related such as IN or angina though it is not exertionally related. Also consider lung related though no cough nor pleurisy. He is tender in the upper abdomen so gastritis pancreatitis or liver problems are possible. He has had his gallbladder out so that is not going to be an issue. Then also consider musculoskeletal pains.), d/w patient Departure - Departure Disposition: 01 Home, Self Care Clinical Impression: Upper abdominal pain Pancreatitis, acute Qualifiers: Pancreatitis type: drug induced Acute pancreatitis complication: no infection or necrosis Qualified Code(s): K85.30 - Drug induced acute pancreatitis without necrosis or infection Gastritis Qualifiers: Gastritis type: other gastritis Chronicity: chronic Gastritis bleeding: without bleeding Qualified Code(s): K29.50 - Unspecified chronic gastritis without bleeding Condition: Stable Record reviewed to determine appropriate education?: Yes Instructions: ED Pancreatitis, ED Gastritis Follow-Up: Norberto Newby MD [Primary Care Provider] - Prescriptions: Famotidine 20 mg PO DAILY #30 tablet Lidocaine Viscous 2% [Xylocaine Viscous 2%] 5 ml PO Q4H PRN #100 ml PRN Reason: Pain Comments: You do have signs of pancreatitis based on your blood tests and also the CT scan. Your liver enzymes are okay as is the common bile duct. I therefore think of a drug-induced pancreatitis. Among her medicines, omeprazole is perhaps more likely but Depakote could do it as well. We will swap out the omeprazole and have you stop that and take instead famotidine which is from a different category of medication to reduce stomach acids. For pain you can use antacid along with the lidocaine as directed. You did have some improvement of your pain here with that and so there may be some element of gastritis as well. Follow-up with your primary care later this week, call today for an appointment. They will want to recheck your blood test to ensure the pancreatic inflammation seems to be decreasing. Return sooner if worsening symptoms. If this does not resolve with stopping the omeprazole, then you will need to discuss with your neurologist the idea of changing the Depakote, as that could be an alternative cause for the pancreatitis.
[2018-09-28 04:04] LABS: EOSINOPHILS # (AUTO) 0.1 10^3/uL (0.0-0.7); EOSINOPHILS % (AUTO) 0.9 %; HGB - HEMOGLOBIN 11.4 g/dL (14.0-18.0); LYMPHOCYTES # (AUTO) 2.3 10^3/uL (1.5-3.5); LYMPHOCYTES % (AUTO) 29.6 %; MEAN CORPUSCULAR HEMOGLOBIN 34.6 pg (27.0-31.0); MEAN CORPUSCULAR HGB CONC 33.1 g/dL (32.0-36.0); MEAN CORPUSCULAR VOLUME 104.3 fL (80.0-94.0); MEAN PLATELET VOLUME 10.8 fL (7.4-11.4); MONOCYTES # (AUTO) 4.2 10^3/uL (0.0-1.0); MONOCYTES % (AUTO) 54.3 %; NEUTROPHILS # (AUTO) 1.2 10^3/uL (1.5-6.6); NEUTROPHILS % (AUTO) 15.2 %; PLT - PLATELET COUNT 95 10^3/uL (130-450); RED BLOOD COUNT 3.31 10^6/uL (4.70-6.10); RED CELL DISTRIBUTION WIDTH 13.8 % (12.0-15.0); WHITE BLOOD COUNT 7.7 x10^3/uL (4.8-10.8)
[2018-09-28 04:22] LABS: ALBUMIN 3.2 g/dL (3.2-5.5); ALBUMIN/GLOBULIN RATIO 0.9 (1.0-2.2); BILIRUBIN,TOTAL 0.4 mg/dL (0.2-1.0); CALCIUM 9.3 mg/dL (8.5-10.3); CREATININE 0.7 mg/dL (0.6-1.2); TOTAL PROTEIN 6.6 g/dL (6.7-8.2)
[2018-09-28] MEDS ORDERED: LIDOCAINE VISCOUS 2% 15 ML UDC MM STA (04:26)
[2018-09-28] MEDS ORDERED: MAG HYDROX/AL HYDROX/SIMETH 30 ML UDC PO STA (04:26)
--- NOTE | 2018-09-28 05:47 | XRAY Report ---
Reason: chest pain Procedure Date: 09/28/2018 Accession Number: [id number] / [id number] Procedure: XR - Chest 1 View X-Ray CPT Code: 95924 FULL RESULT: EXAM: CHEST RADIOGRAPHY EXAM DATE: 09/28/2018 05:21 AM. CLINICAL HISTORY: Chest pain. COMPARISON: XR CHEST PA AND LAT 01/12/2010 11:49 AM. TECHNIQUE: 1 view. FINDINGS: Lungs/Pleura: Low volumes. No definite pneumonia or edema. No gross pneumothorax or large effusion. Mediastinum: Within exam limitations, cardiomediastinal contour is normal. Other: None. IMPRESSION: Hypoventilatory single view chest without definite acute process. RADIA
[2018-09-28] MEDS ORDERED: IOVERSOL 320 100 ML VIAL IVP ONE ×2 (06:03→06:23)
[2018-09-28 06:04] VITALS: BP 129/72
--- NOTE | 2018-09-28 06:43 | CT Report ---
Reason: upper abd pain; elevated lipase Procedure Date: 09/28/2018 Accession Number: [id number] / [id number] Procedure: CT - Abdomen/Pelvis W/ CPT Code: FULL RESULT: EXAM: CT ABDOMEN AND PELVIS EXAM DATE: 09/28/2018 06:31 AM. CLINICAL HISTORY: Upper abd pain; elevated lipase. COMPARISONS: ABDOMEN W/WO 05/07/2018 12:54 PM. TECHNIQUE: Routine helical CT imaging was performed through the abdomen and pelvis. IV contrast: OPTIRAY 320 100mL. Enteric contrast: No. Reconstructions: Coronal and sagittal. In accordance with CT protocol optimization, one or more of the following dose reduction techniques were utilized for this exam: automated exposure control, adjustment of mA and/or KV based on patient size, or use of iterative reconstructive technique. FINDINGS: Lung Bases: Mild dependent atelectasis. Liver: Normal. No masses. Gallbladder/Bile Ducts: Postoperative changes of cholecystectomy. No biliary dilatation. Spleen: Surgically absent. Pancreas: Mild peripancreatic inflammation. No evidence of pancreatic necrosis or pseudocyst. Adrenal Glands: Normal. Kidneys: Normal. No masses or hydronephrosis. Peritoneal Cavity/Bowel: Small amount of free fluid. No bowel dilatation, free gas, or abdominal adenopathy. Pelvic Organs: Small amount of free fluid in the pelvis. Sigmoid diverticulosis, without CT evidence of diverticulitis. Vasculature: Atherosclerotic disease. No aneurysm. Bones: Degenerative changes. Other: None. IMPRESSION: Peripancreatic inflammation, compatible with pancreatitis. Small amount of ascites. No pancreatic necrosis or pseudocyst. Stable postoperative changes. RADIA
== END 2018-09-28 07:13 | disposition home or self-care (01) ==
LOC: EDUNIT# → ED 03:21
DX: R10.13 Epigastric pain (principal); K85.30 Drug induced acute pancreatitis without necrosis or infection; T47.1X5A Adverse effect of other antacids and anti-gastric-secretion drugs, initial encounter; K29.50 Unspecified chronic gastritis without bleeding; I45.81 Long QT syndrome; Z96.649 Presence of unspecified artificial hip joint; Z79.82 Long term (current) use of aspirin
CPT/HCPCS: 36415; 71045; 74177; 80053; 83690; 83735; 84484; 85025; 93005; 99283; 99284; A9270; Q9967; 80164

== ENCOUNTER 2018-10-01 14:07 | Outpatient (CLI) | payer MEDICARE, OTHER ==
[2018-10-01 14:53] LABS: ALBUMIN 3.2 g/dL (3.2-5.5); ALBUMIN/GLOBULIN RATIO 1.1 (1.0-2.2); BILIRUBIN,TOTAL 0.6 mg/dL (0.2-1.0); CREATININE 0.7 mg/dL (0.6-1.2); TOTAL PROTEIN 6.2 g/dL (6.7-8.2)
[2018-10-01 15:00] LABS: CALCIUM 9.5 mg/dL (8.5-10.3)
== END 2018-10-01 14:08 | disposition home or self-care (01) ==
LOC: LAB 14:07
PROVIDERS: ATTEND Internal Medicine
DX: R10.9 Unspecified abdominal pain (principal)
CPT/HCPCS: 36415; 80053; 80076; 80164; 82140; 83690

== ENCOUNTER 2018-10-05 10:55 | Outpatient (CLI) | payer MEDICARE, OTHER ==
[2018-10-05 11:44] LABS: ALBUMIN 3.2 g/dL (3.2-5.5); ALKALINE PHOSPHATASE 44 IU/L (42-121); ALT ALANINE AMINOTRANSFERASE 17 IU/L (10-60); AST ASPARTATE AMINOTRANSFERASE 28 IU/L (10-42); BILIRUBIN,DIRECT 0.1 mg/dL (0.1-0.5); BILIRUBIN,TOTAL 0.5 mg/dL (0.2-1.0); TOTAL PROTEIN 6.6 g/dL (6.7-8.2); VALPROIC ACID (DEPAKOTE) 89.8 ug/mL
== END 2018-10-05 10:56 | disposition home or self-care (01) ==
LOC: LAB 10:55
PROVIDERS: ATTEND Physician Assistant
DX: R56.9 Unspecified convulsions (principal)
CPT/HCPCS: 36415; 80076; 80164; 82140

== ENCOUNTER 2018-11-12 11:57 | Outpatient (CLI) | payer MEDICARE, OTHER ==
[2018-11-12 15:37] LABS: BASOPHILS % (AUTO) 0.4 %; EOSINOPHILS % (AUTO) 0.4 %; LYMPHOCYTES # (AUTO) 0.9 10^3/uL (1.5-3.5); MEAN CORPUSCULAR HEMOGLOBIN 34.2 pg (27.0-31.0); MEAN CORPUSCULAR HGB CONC 32.9 g/dL (32.0-36.0); MEAN CORPUSCULAR VOLUME 103.8 fL (80.0-94.0); MONOCYTES # (AUTO) 0.5 10^3/uL (0.0-1.0); MONOCYTES % (AUTO) 10.7 %; NEUTROPHILS % (AUTO) 67.5 %; PLT - PLATELET COUNT 112 10^3/uL (130-450); RED BLOOD COUNT 3.52 10^6/uL (4.70-6.10); RED CELL DISTRIBUTION WIDTH 13.7 % (12.0-15.0); WHITE BLOOD COUNT 4.5 x10^3/uL (4.8-10.8)
[2018-11-12 15:38] LABS: ALBUMIN 3.4 g/dL (3.2-5.5); BILIRUBIN,TOTAL 0.9 mg/dL (0.2-1.0); CALCIUM 9.8 mg/dL (8.5-10.3); CREATININE 0.8 mg/dL (0.6-1.2); TOTAL PROTEIN 6.9 g/dL (6.7-8.2)
[2018-11-12 15:49] LABS: PLATELET MORPHOLOGY RARE GIANT PLATELETS (NORMAL)
[2018-11-12 15:50] LABS: PLATELET ESTIMATE, MANUAL DECREASED (<130,000) (NORMAL); RBC MORPHOLOGY (MULTIPLE) 1+ MACROCYTOSIS (NORMAL)
== END 2018-11-12 23:59 | disposition home or self-care (01) ==
LOC: LAB.R 11:57
PROVIDERS: ATTEND Physician Assistant Medical
DX: Z79.899 Other long term (current) drug therapy (principal); R06.00 Dyspnea, unspecified
CPT/HCPCS: 80053; 83880; 85025

== ENCOUNTER 2018-11-19 14:17 | Outpatient (CLI) | payer MEDICARE, OTHER ==
[2018-11-19 14:59] LABS: MEAN RETIC VALUE 122.2; RED BLOOD COUNT 3.29 10^6/uL (4.70-6.10)
[2018-11-19 15:14] LABS: % IRON SATURATION 26 % (20-50); IRON 84 ug/dL (45-182); TOTAL IRON BINDING CAPACITY 329 ug/dL (250-450); TRANSFERRIN 235 mg/dL (180-329)
[2018-11-19 15:35] LABS: FOLATE 20.84 ng/mL (5.90 - >24.8)
[2018-11-19 15:45] LABS: BILIRUBIN,URINE NEGATIVE (NEGATIVE); GLUCOSE, URINE (UA) NEGATIVE (NEGATIVE); KETONES,URINE (UA) TRACE mg/dL (NEGATIVE); LEUKOCYTE ESTERASE, URINE NEGATIVE (NEGATIVE); NITRITE,URINE NEGATIVE (NEGATIVE); OCCULT BLOOD,URINE NEGATIVE (NEGATIVE); PROTEIN,URINE NEGATIVE (NEGATIVE); UROBILINOGEN,URINE 0.2 (NORMAL) E.U./dL (NORMAL)
[2018-11-19 15:56] LABS: CLARITY,URINE CLEAR (CLEAR)
[2018-11-19 15:57] LABS: BACTERIA,URINE None Seen /HPF (None Seen); MUCUS,URINE Few Strands; RBC,URINE None Seen /HPF (0-5); SQUAMOUS EPITHELIAL CELL,UR NONE SEEN (<= Few)
== END 2018-11-19 14:18 | disposition home or self-care (01) ==
LOC: LAB 14:17
PROVIDERS: ATTEND Physician Assistant Medical
DX: D64.9 Anemia, unspecified (principal); R30.0 Dysuria; Z79.899 Other long term (current) drug therapy
CPT/HCPCS: 36415; 81001; 82607; 82728; 82746; 83010; 83540; 84466; 85044; 86880; 87086

== ENCOUNTER 2018-12-18 12:43 | Emergency (ER) | payer MEDICARE, OTHER ==
[2018-12-18 14:16] LABS: BASOPHILS % (AUTO) 0.2 %; EOSINOPHILS # (AUTO) 0.1 10^3/uL (0.0-0.7); EOSINOPHILS % (AUTO) 1.2 %; HGB - HEMOGLOBIN 12.1 g/dL (14.0-18.0); LYMPHOCYTES # (AUTO) 1.1 10^3/uL (1.5-3.5); LYMPHOCYTES % (AUTO) 18.8 %; MEAN CORPUSCULAR HEMOGLOBIN 34.6 pg (27.0-31.0); MEAN CORPUSCULAR HGB CONC 33.7 g/dL (32.0-36.0); MEAN CORPUSCULAR VOLUME 102.7 fL (80.0-94.0); MEAN PLATELET VOLUME 11.3 fL (7.4-11.4); MONOCYTES # (AUTO) 0.8 10^3/uL (0.0-1.0); MONOCYTES % (AUTO) 12.8 %; NEUTROPHILS # (AUTO) 3.9 10^3/uL (1.5-6.6); PLT - PLATELET COUNT 114 10^3/uL (130-450); RED BLOOD COUNT 3.48 10^6/uL (4.70-6.10); RED CELL DISTRIBUTION WIDTH 14.5 % (12.0-15.0); WHITE BLOOD COUNT 5.9 x10^3/uL (4.8-10.8)
[2018-12-18 14:32] LABS: ALBUMIN 3.5 g/dL (3.2-5.5); ALBUMIN/GLOBULIN RATIO 1.1 (1.0-2.2); BILIRUBIN,TOTAL 0.9 mg/dL (0.2-1.0); CALCIUM 9.3 mg/dL (8.5-10.3); CREATININE 0.9 mg/dL (0.6-1.2); TOTAL PROTEIN 6.8 g/dL (6.7-8.2)
[2018-12-18 14:36] LABS: PLATELET ESTIMATE, MANUAL DECREASED (<130,000) (NORMAL); PLATELET MORPHOLOGY 1+ LARGE PLATELETS (NORMAL); RBC MORPHOLOGY (MULTIPLE) NORMAL APPEARANCE (NORMAL)
[2018-12-18 14:44] LABS: PT - PROTHROMBIN TIME 11.7 secs (9.9-12.6)
--- NOTE | 2018-12-18 15:56 | ED Physician Documentation ---
PD HPI ALTERED MENTAL STATUS - Stated complaint Stated Complaint: ABNORMAL LABS - Chief complaint Chief Complaint: General - History obtained from History obtained from: Patient (fatigue and somnolence), Family - History of Present Illness Timing - onset: How many weeks ago (has felt fatigue for several weeks. Had blood test done preparing for spinal injection for back pain and platelets were low at 105. Wanting them rechecked. 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 No noted bleeding.) Timing - duration: Weeks Timing - details: Gradual onset, Waxing and waning Quality / character: Other (fatigue and tiredness) Associated symptoms: General weakness. No: Fever, Headache, Focal weakness Contributing factors: Recent med change (started on flomax for prostate couple months ago.) Basline status: Alert and oriented X 3, Ambulatory Similar symptoms before: Diagnosis (had ITP years ago with spontaneous bleeding and very low platelets. Was on steroids.) Review of Systems Constitutional: denies: Fever, Chills Nose: denies: Rhinorrhea / runny nose, Congestion Throat: denies: Sore throat Cardiac: denies: Chest pain / pressure, Palpitations Respiratory: denies: Dyspnea, Cough Neurologic: reports: Generalized weakness. denies: Focal weakness, Numbness Psychiatric: reports: Insomnia (wakes often, but denies snoring, and says no apneic periods.) Endocrine: denies: Weight loss, Weight gain, Easy bruising / bleeding PD PAST MEDICAL HISTORY - Past Medical History Past Medical History: Yes Cardiovascular: None Respiratory: None Neuro: None Endocrine/Autoimmune: None GI: GERD : Kidney stones HEENT: None Psych: Anxiety Musculoskeletal: Osteoarthritis Derm: None, Psoriasis - Past Surgical History Past Surgical History: Yes General: Cholecystectomy, Appendectomy, Splenectomy Ortho: Hip replacement HEENT: Tonsil/Adenoidectomy - Present Medications Home Medications: Ambulatory Orders Medication Instructions Recorded Confirmed Aspirin EC [Ecotrin] 81 mg PO DAILY 06/27/13 05/06/18 LORazepam [Ativan] 0.5 mg PO ONCE 06/27/13 05/06/18 Pregabalin [Lyrica] 100 mg PO HS 06/27/13 05/06/18 Vit A,C & E/Lutein/Minerals 1 each PO DAILY 06/27/13 05/06/18 [Ocuvite Tablet] Cyanocobalamin (Vitamin B-12) 1,000 mcg PO DAILY 02/09/14 05/06/18 [Vitamin B-12] Cholecalciferol (Vitamin D3) 2,000 units ORAL DAILY 05/03/14 05/06/18 [Vitamin D3] oxyCODONE ER [OxyCONTIN] 20 mg ORAL BID 05/03/14 05/06/18 Divalproex Sodium [Depakote] 750 mg PO DAILY 02/26/17 05/06/18 Sennosides [Senna Lax] 20 mg PO DAILY 02/26/17 05/06/18 Divalproex Sodium [Depakote] 1,000 mg PO QPM 05/06/18 05/06/18 levOCARNitine tartrate 250 mg PO 05/09/18 [l-Carnitine] Famotidine 20 mg PO DAILY #30 tablet 09/28/18 - Allergies Allergies/Adverse Reactions: Allergies Allergy/AdvReac Type Severity Reaction Status Date / Time amitriptyline [Amitriptyline] Allergy Intermediate Hallucinati Verified 12/18/18 12:53 ons heparinoids Allergy Intermediate Rash Verified 12/18/18 12:53 - Social History Does the pt smoke?: No Smoking Status: Never smoker Does the pt drink ETOH?: Yes ETOH Use: Wine Does the pt have substance abuse?: No - Immunizations Immunizations are current?: Yes - POLST Patient has POLST: No PD ED PE NORMAL - Vitals Vital signs reviewed: Yes - General General: Alert and oriented X 3, Well developed/nourished - HEENT HEENT: Moist mucous membranes, Pharynx benign - Neck Neck: Supple, no meningeal sign, No adenopathy, Thyroid normal, No JVD - Cardiac Cardiac: RRR, No murmur - Respiratory Respiratory: Clear bilaterally - Abdomen Abdomen: Soft, Non tender - Derm Derm: Normal color, Warm and dry - Extremities Extremities: No tenderness to palpate, Normal ROM s pain, No edema, No calf tenderness / cord - Neuro Neuro: Alert and oriented X 3, No motor deficit, Normal speech Results - Vitals Vitals: Vital Signs - 24 hr 12/18/18 16:12 Heart Rate 86 Respiratory 18 Rate Blood Pressure 153/97 H O2 Saturation 98 Oxygen O2 Source Room air - Labs Labs: Laboratory Tests 12/18/18 12/18/18 12/18/18 14:08 14:08 14:08 WBC 5.9 RBC 3.48 L Hgb 12.1 L Hct 35.8 L MCV 102.7 H MCH 34.6 H MCHC 33.7 RDW 14.5 Plt Count 114 L MPV 11.3 Neut # (Auto) 3.9 Lymph # (Auto) 1.1 L [place] # (Auto) 0.8 Eos # (Auto) 0.1 Baso # (Auto) 0.0 Absolute Nucleated RBC 0.00 Nucleated RBC % 0.0 Manual Slide Review Indicated WBC Morphology NORMAL APPEARANCE Platelet Estimate DECREASED (<130,000) Platelet Morphology 1+ LARGE PLATELETS RBC Morph Micro Appear NORMAL APPEARANCE PT 11.7 INR 1.0 Sodium 139 Potassium 4.0 Chloride 100 L Carbon Dioxide 30 Anion Gap 9.0 BUN 34 H Creatinine 0.9 Estimated GFR (MDRD) 81 L Glucose 58 L* POC Whole Bld Glucose Calcium 9.3 Total Bilirubin 0.9 AST 27 ALT 14 Alkaline Phosphatase 45 Total Protein 6.8 Albumin 3.5 Globulin 3.3 Albumin/Globulin Ratio 1.1 Lipase 38 TSH Last Dose Date Last Dose Time Valproic Acid 12/18/18 12/18/18 12/18/18 14:08 14:10 15:08 WBC RBC Hgb Hct MCV MCH MCHC RDW Plt Count MPV Neut # (Auto) Lymph # (Auto) [place] # (Auto) Eos # (Auto) Baso # (Auto) Absolute Nucleated RBC Nucleated RBC % Manual Slide Review WBC Morphology Platelet Estimate Platelet Morphology RBC Morph Micro Appear PT INR Sodium Potassium Chloride Carbon Dioxide Anion Gap BUN Creatinine Estimated GFR (MDRD) Glucose POC Whole Bld Glucose 143 H Calcium Total Bilirubin AST ALT Alkaline Phosphatase Total Protein Albumin Globulin Albumin/Globulin Ratio Lipase TSH 1.49 Last Dose Date UNK Last Dose Time UNK Valproic Acid 102.6 PD MEDICAL DECISION MAKING - ED course Complexity details: reviewed results, considered differential, d/w patient Departure - Departure Disposition: 01 Home, Self Care Clinical Impression: Thrombocytopenia Condition: Stable Record reviewed to determine appropriate education?: Yes Follow-Up: Bay Cruz MD [Primary Care Provider] - Comments: Your medication list has 2 medicines that would associate with low platelet count. Particularly would be the Lyrica which is listed as a more common potential side effect. It is also a potential side effect of the Depakote. Recheck your platelet count again next week to ensure its not going lower still. Discuss with your primary care about potentially lowering the Lyrica if the platelet count keeps dropping. He would want to think of the medication effect like this before you be able to assess an immune related such as ITP. Discharge Date/Time: 12/18/18 16:14
[2018-12-18 16:13] VITALS: BP 153/97
[2018-12-18 16:36] LABS: VALPROIC ACID (DEPAKOTE) 102.6 ug/mL
== END 2018-12-18 16:14 | disposition home or self-care (01) ==
LOC: ED 12:43
DX: D69.6 Thrombocytopenia, unspecified (principal); Z79.82 Long term (current) use of aspirin; Z96.649 Presence of unspecified artificial hip joint
CPT/HCPCS: 36415; 80053; 80164; 83690; 84443; 85025; 85610; 99282; 99283

== ENCOUNTER 2018-12-23 10:18 | Outpatient (CLI) | payer MEDICARE, OTHER ==
[2018-12-23 10:45] LABS: ALBUMIN 3.5 g/dL (3.2-5.5); ALKALINE PHOSPHATASE 37 IU/L (42-121); ALT ALANINE AMINOTRANSFERASE 13 IU/L (10-60); AST ASPARTATE AMINOTRANSFERASE 23 IU/L (10-42); BILIRUBIN,DIRECT 0.2 mg/dL (0.1-0.5); BILIRUBIN,TOTAL 0.9 mg/dL (0.2-1.0); TOTAL PROTEIN 6.6 g/dL (6.7-8.2); VALPROIC ACID (DEPAKOTE) 92.8 ug/mL
== END 2018-12-23 10:19 | disposition home or self-care (01) ==
LOC: LAB 10:18
PROVIDERS: ATTEND Physician Assistant
DX: R56.9 Unspecified convulsions (principal)
CPT/HCPCS: 36415; 80076; 80164; 82140

== ENCOUNTER 2019-02-19 22:42 | Emergency (ER) | payer MEDICARE, OTHER ==
[2019-02-19 23:09] LABS: BILIRUBIN,URINE NEGATIVE (NEGATIVE); GLUCOSE, URINE (UA) NEGATIVE (NEGATIVE); KETONES,URINE (UA) TRACE mg/dL (NEGATIVE); LEUKOCYTE ESTERASE, URINE NEGATIVE (NEGATIVE); NITRITE,URINE NEGATIVE (NEGATIVE); OCCULT BLOOD,URINE TRACE-INTA (NEGATIVE); PROTEIN,URINE TRACE mg/dL (NEGATIVE); UROBILINOGEN,URINE 0.2 (NORMAL) E.U./dL (NORMAL)
--- NOTE | 2019-02-19 23:09 | ED Physician Documentation ---
History of Present Illness - Stated complaint Stated Complaint: ABD PX - Chief complaint Chief Complaint: Abd Pain - History obtained from History obtained from: Patient, Family (spouse) - History of Present Illness Timing: How many days ago (3) Pain level max: 10 Pain level now: 10 Improved by: nothing Worsened by: palpation - Additonal information Additional information: c/o 3 days of gradual onset, episodic periumbilical and epigastric abdominal pain. He feels this is similar to when he had pancreatitis in September 2018. At that time, he was T+R from this ED and was advised to stop omeprazole. He did not have recurrence of the pain until 3 days ago. The day the pain started (3 days ago), he had run out of pepcid and thus gave him two doses of omeprazole (but none since then) Review of Systems Constitutional: reports: Reviewed and negative Cardiac: reports: Reviewed and negative Respiratory: reports: Reviewed and negative GI: reports: Abdominal Pain. denies: Abdominal Swelling, Nausea, Vomiting, Constipation, Diarrhea : denies: Dysuria, Frequency Musculoskeletal: denies: Back pain PD PAST MEDICAL HISTORY - Past Medical History Cardiovascular: None Respiratory: None Neuro: None Endocrine/Autoimmune: None GI: GERD : Kidney stones HEENT: None Psych: Anxiety Musculoskeletal: Osteoarthritis Derm: None, Psoriasis - Past Surgical History Past Surgical History: Yes General: Cholecystectomy, Appendectomy, Splenectomy Ortho: Hip replacement HEENT: Tonsil/Adenoidectomy - Present Medications Home Medications: Ambulatory Orders Medication Instructions Recorded Confirmed Aspirin EC [Ecotrin] 81 mg PO DAILY 06/27/13 05/06/18 LORazepam [Ativan] 0.5 mg PO ONCE PRN 06/27/13 05/06/18 Pregabalin [Lyrica] 200 mg PO HS 06/27/13 05/06/18 Vit A,C & E/Lutein/Minerals 1 each PO DAILY 06/27/13 05/06/18 [Ocuvite Tablet] Cyanocobalamin (Vitamin B-12) 1,000 mcg PO DAILY 02/09/14 05/06/18 [Vitamin B-12] Cholecalciferol (Vitamin D3) 2,000 units ORAL DAILY 05/03/14 05/06/18 [Vitamin D3] oxyCODONE ER [OxyCONTIN] 20 mg ORAL BID 05/03/14 05/06/18 Divalproex Sodium [Depakote] 1,750 mg PO QPM 05/06/18 05/06/18 levOCARNitine tartrate 250 mg PO 05/09/18 [l-Carnitine] Famotidine 20 mg PO DAILY #30 tablet 09/28/18 Mirabegron [Myrbetriq] 25 mg PO DAILY 01/06/19 01/06/19 Polyethylene Glycol 3350 [Miralax] 17 gm PO DAILY 01/06/19 01/06/19 - Allergies Allergies/Adverse Reactions: Allergies Allergy/AdvReac Type Severity Reaction Status Date / Time amitriptyline [Amitriptyline] Allergy Intermediate Hallucinati Verified 12/18/18 12:53 ons heparinoids Allergy Intermediate Rash Verified 12/18/18 12:53 - Social History Does the pt smoke?: No Smoking Status: Never smoker Does the pt drink ETOH?: Yes Does the pt have substance abuse?: No - Immunizations Immunizations are current?: Yes - POLST Patient has POLST: No PD ED PE NORMAL - Vitals Vital signs reviewed: Yes - General General: Alert and oriented X 3, No acute distress, Well developed/nourished - HEENT HEENT: Moist mucous membranes - Neck Neck: Supple, no meningeal sign - Cardiac Cardiac: RRR, No murmur - Respiratory Respiratory: No respiratory distress, Clear bilaterally - Abdomen Abdomen: Soft, Non distended - Derm Derm: Normal color, Warm and dry - Extremities Extremities: No edema PD ED PE EXPANDED - Abdomen Abdomen: Tender to palpation, Epigastric. No: Rebound, Guarding, Mass Results - Vitals Vitals: Vital Signs - 24 hr 02/19/19 02/20/19 02/20/19 22:45 00:29 02:25 Temperature 36.6 C 36.6 C 36 C L Heart Rate 73 73 68 Respiratory 16 18 17 Rate Blood Pressure 143/87 H 154/84 H 152/85 H O2 Saturation 97 96 96 Oxygen O2 Source Room air - Labs Labs: Laboratory Tests 02/19/19 02/19/19 02/19/19 23:01 23:01 23:40 WBC 10.9 H RBC 3.47 L Hgb 12.0 L Hct 35.3 L MCV 101.6 H MCH 34.6 H MCHC 34.1 RDW 13.6 Plt Count 148 MPV 10.6 Neut # (Auto) 8.0 H Lymph # (Auto) 1.1 L [place] # (Auto) 1.8 H Eos # (Auto) 0.0 Baso # (Auto) 0.0 Absolute Nucleated RBC 0.01 Nucleated RBC % 0.1 Sodium Potassium Chloride Carbon Dioxide Anion Gap BUN Creatinine Estimated GFR (MDRD) Glucose Calcium Phosphorus Magnesium Total Bilirubin AST ALT Alkaline Phosphatase Total Protein Albumin Globulin Albumin/Globulin Ratio Lipase Urine Color DARK YELLOW Cancelled Urine Clarity CLEAR Cancelled Urine pH 6.0 Cancelled Ur Specific [place] 1.020 Cancelled Urine Protein TRACE Cancelled Urine Glucose (UA) NEGATIVE Cancelled Urine Ketones TRACE Cancelled Urine Occult Blood TRACE-INTA Cancelled Urine Nitrite NEGATIVE Cancelled Urine Bilirubin NEGATIVE Cancelled Urine Urobilinogen 0.2 (NORMAL) Cancelled Ur Leukocyte Esterase NEGATIVE Cancelled Ur Microscopic Review NOT INDICATED Cancelled Urine Culture Comments NOT INDICATED Cancelled 02/19/19 23:40 WBC RBC Hgb Hct MCV MCH MCHC RDW Plt Count MPV Neut # (Auto) Lymph # (Auto) [place] # (Auto) Eos # (Auto) Baso # (Auto) Absolute Nucleated RBC Nucleated RBC % Sodium 134 L Potassium 4.1 Chloride 96 L Carbon Dioxide 28 Anion Gap 10.0 BUN 30 H Creatinine 1.0 Estimated GFR (MDRD) 72 L Glucose 109 H Calcium 9.2 Phosphorus 2.9 Magnesium 1.9 Total Bilirubin 0.7 AST 23 ALT 13 Alkaline Phosphatase 34 L Total Protein 6.0 L Albumin 2.9 L Globulin 3.1 Albumin/Globulin Ratio 0.9 L Lipase 282 H Urine Color Urine Clarity Urine pH Ur Specific [place] Urine Protein Urine Glucose (UA) Urine Ketones Urine Occult Blood Urine Nitrite Urine Bilirubin Urine Urobilinogen Ur Leukocyte Esterase Ur Microscopic Review Urine Culture Comments - Rads (name of study) CT A/P Radiology: Prelim report reviewed, See rad report PD MEDICAL DECISION MAKING - ED course Complexity details: reviewed old records, reviewed results, re-evaluated patient, considered differential, d/w patient, d/w family ED course: NAD during ED stay, asleep on reevaluations (although easily awoken to voice). test results c/w mild pancreatitis, has pain medication at home, will return if worse in any way Departure - Departure Disposition: 01 Home, Self Care Clinical Impression: Pancreatitis Qualifiers: Chronicity: acute Pancreatitis type: unspecified pancreatitis type Acute pancreatitis complication: no infection or necrosis Qualified Code(s): K85.90 - Acute pancreatitis without necrosis or infection, unspecified Condition: Good Instructions: ED Pancreatitis Follow-Up: Bay Cruz MD [Primary Care Provider] - Discharge Date/Time: 02/20/19 02:38
[2019-02-19 23:12] LABS: CLARITY,URINE CLEAR (CLEAR)
[2019-02-19 23:54] LABS: BASOPHILS % (AUTO) 0.4 %; LYMPHOCYTES # (AUTO) 1.1 10^3/uL (1.5-3.5); MEAN CORPUSCULAR HEMOGLOBIN 34.6 pg (27.0-31.0); MEAN CORPUSCULAR HGB CONC 34.1 g/dL (32.0-36.0); MEAN CORPUSCULAR VOLUME 101.6 fL (80.0-94.0); MEAN PLATELET VOLUME 10.6 fL (7.4-11.4); MONOCYTES # (AUTO) 1.8 10^3/uL (0.0-1.0); MONOCYTES % (AUTO) 16.1 %; NEUTROPHILS % (AUTO) 73.5 %; PLT - PLATELET COUNT 148 10^3/uL (130-450); RED BLOOD COUNT 3.47 10^6/uL (4.70-6.10); RED CELL DISTRIBUTION WIDTH 13.6 % (12.0-15.0); WHITE BLOOD COUNT 10.9 x10^3/uL (4.8-10.8)
[2019-02-20 00:03] LABS: ALBUMIN 2.9 g/dL (3.2-5.5); ALBUMIN/GLOBULIN RATIO 0.9 (1.0-2.2); BILIRUBIN,TOTAL 0.7 mg/dL (0.2-1.0); CALCIUM 9.2 mg/dL (8.5-10.3); MAGNESIUM 1.9 mg/dL (1.7-2.8); PHOSPHORUS 2.9 mg/dL (2.5-4.6)
[2019-02-20] MEDS ORDERED: IOVERSOL 320 100 ML VIAL IVP ONE ×2 (00:30→01:01)
--- NOTE | 2019-02-20 01:48 | CT Report ---
Reason: abd. pain Procedure Date: 02/20/2019 Accession Number: [id number] / [id number] Procedure: CT - Abdomen/Pelvis W CPT Code: FULL RESULT: EXAM: CT ABDOMEN AND PELVIS EXAM DATE: 02/20/2019 12:45 AM. CLINICAL HISTORY: Abd. pain. COMPARISONS: ABDOMEN/PELVIS W/ 09/28/2018 6:14 AM. TECHNIQUE: Routine helical CT imaging was performed through the abdomen and pelvis. IV contrast: 100 ML OPTIRAY 320. Enteric contrast: No. Reconstructions: Coronal and sagittal. In accordance with CT protocol optimization, one or more of the following dose reduction techniques were utilized for this exam: automated exposure control, adjustment of mA and/or KV based on patient size, or use of iterative reconstructive technique. FINDINGS: ABDOMEN: Lung Bases: Incompletely included lower lungs are grossly clear. Heart size is within normal limits. No basilar effusions. Liver: Unremarkable. Spleen: Status post splenectomy. Pancreas: Peripancreatic fat induration is again seen similar to the prior. No peripancreatic fluid collections. Pancreas enhances completely. Gallbladder/Bile Ducts: Status post cholecystectomy. Biliary tree is normal caliber. Adrenal Glands: Unremarkable. Kidneys: No mass, calculi, or hydronephrosis. 1.3 cm right renal cyst. Peritoneum/Mesentery/Bowel: No free fluid, free air, or collection. No intestinal obstruction or inflammation. Small bowel anastomosis in the right lower quadrant again seen. Colonic diverticulosis. Lymph nodes: No mesenteric, periportal, or retroperitoneal lymphadenopathy. Vasculature: Abdominal aorta is nonaneurysmal. Portal vein is patent. Hepatic veins are patent. PELVIS: Bladder is decompressed. Small amount of free fluid. Moderate fat filled left inguinal hernia. No pelvic lymphadenopathy. Bones: Multiple sclerotic lesions, likely bone islands. Left hip arthroplasty is present. IMPRESSION: Peripancreatic fat induration, either stable chronic pancreatitis or recurrent pancreatitis. No peripancreatic fluid collections or necrosis. RADIA
[2019-02-20 02:26] VITALS: BP 152/85
== END 2019-02-20 02:38 | disposition home or self-care (01) ==
LOC: ED 22:42
DX: K85.90 Acute pancreatitis without necrosis or infection, unspecified (principal); Z79.82 Long term (current) use of aspirin
CPT/HCPCS: 36415; 74177; 80053; 81003; 83690; 83735; 84100; 85025; 99283; 99284; Q9967; 81001; 87086

== ENCOUNTER 2019-02-20 21:53 | Inpatient (IN) | payer MEDICARE, OTHER ==
[2019-02-20] MEDS ORDERED: SODIUM CHLORIDE 0.9% 1,000 ML IV STA ×2 (22:22→23:26)
--- NOTE | 2019-02-20 22:46 | ED Physician Documentation ---
PD HPI ABD PAIN - Stated complaint Stated Complaint: STOMACH PAIN - Chief complaint Chief Complaint: Abd Pain - History obtained from History obtained from: Patient - History of Present Illness Timing - onset: How many days ago (3-4) Timing - details: Gradual onset, Waxing and waning Pain level now: 6 Quality: Pain Location: Epigastric, Periumbilical Radiation: Other (does not radiate) Improved by: Laying still Worsened by: Eating, Palpation Associated symptoms: No: Fever, Nausea, Vomiting, Diarrhea, Constipation Similar symptoms before: Diagnosis (pancreatitis) Recently seen: Emergency Dept (T+R yesterday for same) - Additional information Additional information: c/o few days of abdominal pain c/w previous episode of pancreatitis in September 2018. He was T+R from this ED yesterday for this pain, blood tests and CT suggested recurrence of pancreatitis (notably, he had normalization of lipase between yesterday and September, suggesting recurrence rather than chronic pancreatitis). He appeared to have adequate pain control yesterday such that no medications were given in the ED. He takes BID oxycontin at home and has oxycodone for breakthrough pain although he has not taken the oxycodone recently; patient's spouse expressed to me her concern that giving him both oxycodone and oxycontin might be too much medication. He has had ongoing sleep issues recently and at times he can be drowsy even without the oxycodone. I explained to her last night that if he is awake, alert, and having significant pain, she can give him the oxycodone for the pain related to this bout of pancreatitis. During the day today, she gave him his usual medications including his BID oxycontin, and gave him oxycodone as well as viscous lidocaine. Despite this, he returns due to worsening and more persistent abdominal pain that is worse when he takes any PO except medications. Review of Systems Constitutional: reports: Reviewed and negative Throat: reports: Reviewed and negative Cardiac: reports: Reviewed and negative Respiratory: reports: Reviewed and negative GI: reports: Abdominal Pain. denies: Nausea, Vomiting, Constipation, Diarrhea, Hematemesis, Bloody / black stool : denies: Dysuria, Frequency Skin: reports: Reviewed and negative Musculoskeletal: reports: Reviewed and negative Neurologic: reports: Generalized weakness. denies: Focal weakness, Numbness, Headache PD PAST MEDICAL HISTORY - Past Medical History Cardiovascular: None Respiratory: None Neuro: None Endocrine/Autoimmune: None GI: GERD : Kidney stones HEENT: None Psych: Anxiety Musculoskeletal: Osteoarthritis Derm: None, Psoriasis - Past Surgical History Past Surgical History: Yes General: Cholecystectomy, Appendectomy, Splenectomy Ortho: Hip replacement HEENT: Tonsil/Adenoidectomy - Present Medications Home Medications: Ambulatory Orders Medication Instructions Recorded Confirmed Aspirin EC [Ecotrin] 81 mg PO DAILY 06/27/13 02/21/19 LORazepam [Ativan] 0.5 mg PO ONCE PRN 06/27/13 02/21/19 Pregabalin [Lyrica] 200 mg PO QPM 06/27/13 02/21/19 Vit A,C & E/Lutein/Minerals 1 each PO DAILY 06/27/13 02/21/19 [Ocuvite Tablet] Cyanocobalamin (Vitamin B-12) 1,000 mcg PO DAILY 02/09/14 02/21/19 [Vitamin B-12] Cholecalciferol (Vitamin D3) 2,000 units ORAL DAILY 05/03/14 02/21/19 [Vitamin D3] oxyCODONE ER [OxyCONTIN] 20 mg ORAL BID 05/03/14 02/21/19 levOCARNitine tartrate 250 mg PO BID 05/09/18 02/21/19 [l-Carnitine] Polyethylene Glycol 3350 [Miralax] 17 gm PO DAILY 01/06/19 02/21/19 Divalproex ER [Depakote ER] 750 mg PO DAILY 02/21/19 02/21/19 Divalproex Sodium [Divalproex 1,000 mg PO QPM 02/21/19 02/21/19 Sodium ER] Finasteride 5 mg PO DAILY 02/21/19 02/21/19 Mirabegron [Myrbetriq] 50 mg PO DAILY 02/21/19 02/21/19 - Allergies Allergies/Adverse Reactions: Allergies Allergy/AdvReac Type Severity Reaction Status Date / Time amitriptyline [Amitriptyline] Allergy Intermediate Hallucinati Verified 02/20/19 22:00 ons heparinoids Allergy Intermediate Rash Verified 02/20/19 22:00 - Social History Does the pt smoke?: No Smoking Status: Never smoker Does the pt drink ETOH?: Yes Does the pt have substance abuse?: No - Immunizations Immunizations are current?: Yes - POLST Patient has POLST: No PD ED PE NORMAL - Vitals Vital signs reviewed: Yes - General General: Alert and oriented X 3, Well developed/nourished, Other (appears to be in mild painful discomfort) - HEENT HEENT: Moist mucous membranes - Neck Neck: Supple, no meningeal sign - Cardiac Cardiac: RRR, No murmur - Respiratory Respiratory: No respiratory distress, Clear bilaterally - Abdomen Abdomen: Soft, Non distended, Other (TTP epigastric and periumbilical without rebound or guarding) - Back Back: No CVA TTP - Derm Derm: Normal color, Warm and dry, No rash - Extremities Extremities: No edema - Neuro Neuro: Alert and oriented X 3 Results - Vitals Vitals: Vital Signs - 24 hr 02/20/19 02/21/19 21:56 00:00 Temperature 36.8 C Heart Rate 74 77 Respiratory 16 12 Rate Blood Pressure 131/94 H 145/77 H O2 Saturation 96 94 Oxygen O2 Source Room air - Labs Labs: Laboratory Tests 02/20/19 02/20/19 02/20/19 22:35 22:35 22:35 WBC 11.8 H RBC 3.57 L Hgb 12.3 L Hct 36.6 L MCV 102.6 H MCH 34.5 H MCHC 33.6 RDW 13.6 Plt Count 145 MPV 10.4 Neut # (Auto) 8.9 H Lymph # (Auto) 0.9 L [place] # (Auto) 1.9 H Eos # (Auto) 0.0 Baso # (Auto) 0.0 Absolute Nucleated RBC 0.00 Nucleated RBC % 0.0 Sodium 133 L Potassium 4.5 Chloride 95 L Carbon Dioxide 29 Anion Gap 9.0 BUN 30 H Creatinine 0.8 Estimated GFR (MDRD) 93 Glucose 104 H Calcium 9.9 Total Bilirubin 0.9 AST 30 ALT 13 Alkaline Phosphatase 41 L Total Protein 7.2 Albumin 3.3 Globulin 3.9 Albumin/Globulin Ratio 0.8 L Amylase 115 H Lipase 171 H PD MEDICAL DECISION MAKING - ED course Complexity details: reviewed old records, reviewed results, re-evaluated patient, considered differential, d/w patient, d/w family ED course: labs appear improved compared to yesterday's results; despite this, he describes worsening pain and indeed appears to be uncomfortable in ED on this visit (was more sleepy and NAD on yesterday's visit). He would benefit from bowel rest/NPO with IV fluids and pain medications via IV as needed in inpatient setting until symptoms improve and can be controlled with his outpatient medications. Departure - Departure Disposition: [facility] DC/Xfer Clinical Impression: Pancreatitis, acute Qualifiers: Pancreatitis type: unspecified pancreatitis type Acute pancreatitis complication: no infection or necrosis Qualified Code(s): K85.90 - Acute pancreatitis without necrosis or infection, unspecified Condition: Stable Discharge Date/Time: 02/21/19 01:53
[2019-02-20 22:54] LABS: BASOPHILS % (AUTO) 0.2 %; HGB - HEMOGLOBIN 12.3 g/dL (14.0-18.0); LYMPHOCYTES # (AUTO) 0.9 10^3/uL (1.5-3.5); LYMPHOCYTES % (AUTO) 7.7 %; MEAN CORPUSCULAR HEMOGLOBIN 34.5 pg (27.0-31.0); MEAN CORPUSCULAR HGB CONC 33.6 g/dL (32.0-36.0); MEAN CORPUSCULAR VOLUME 102.6 fL (80.0-94.0); MEAN PLATELET VOLUME 10.4 fL (7.4-11.4); MONOCYTES # (AUTO) 1.9 10^3/uL (0.0-1.0); MONOCYTES % (AUTO) 16.2 %; NEUTROPHILS # (AUTO) 8.9 10^3/uL (1.5-6.6); NEUTROPHILS % (AUTO) 75.9 %; PLT - PLATELET COUNT 145 10^3/uL (130-450); RED BLOOD COUNT 3.57 10^6/uL (4.70-6.10); RED CELL DISTRIBUTION WIDTH 13.6 % (12.0-15.0); WHITE BLOOD COUNT 11.8 x10^3/uL (4.8-10.8)
[2019-02-20 22:57] LABS: ALBUMIN 3.3 g/dL (3.2-5.5); ALBUMIN/GLOBULIN RATIO 0.8 (1.0-2.2); BILIRUBIN,TOTAL 0.9 mg/dL (0.2-1.0); CALCIUM 9.9 mg/dL (8.5-10.3); CREATININE 0.8 mg/dL (0.6-1.2); TOTAL PROTEIN 7.2 g/dL (6.7-8.2)
[2019-02-20] MEDS ORDERED: MORPHINE 2 MG/ML CARPUJECT IVP STA (23:25)
[2019-02-21] MEDS ORDERED: ZOLPIDEM 5 MG TABLET PO PRN (00:39)
--- NOTE | 2019-02-21 00:50 | HISTORY & PHYSICAL EXAMINATION ---
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 hours in the ED with recurrence of his abdominal pain for which CT abdomen pelvis showed peripancreatic fat induration which appeared to be of chronic nature versus acute recurrent pancre atitis with no evidence of pseudocysts, fluid collections, masses. Patient is status post splenectomy as well as cholecystectomy. Patient did not appear to have any other abnormalities other than an elevated lipase yesterday at 282 with today lipase of 171. Patient had a history of a bout of pancreatitis back on 09/28/2018 with a lipase of 810. Patient was sent home yesterday and was told to continue his home medications of Lyrica, Depakote, Myrbetriq, Ativan, l- carnitine, vitamin B12, as well as aspirin daily. Patient also was on oxycodone taking 20 mg p.o. twice daily with no relief to the abdominal pain. Patient is seen as an outpatient for his ideal pathic thrombocytopenic purpura by Maranda Izquierdo who last saw patient on 01/06/2019. In addition patient sees Dr. Evans who is his primary urologist for his prostate cancer and also sees Dr. Billy seay from [place] who is his primary neurologist. There was discussion on taking patient off the Lyrica as acknowledgment was made that this could possibly be causing patient's pancreatitis. In addition, states that patient has been diagnosed with mild to moderate neurocognitive deficits by primary neurologist who likely may need to readjust or discontinue other medications (i.e lyrica) as Dr. Izquierdo was concerned about his polypharmacy in the setting of patient's akinetic seizures could not completely discontinue Depakote due to withdrawal seizures. Dr. Izquierdo also mentioned that patient may have macrocytic anemia that goes along with MDS diagnoses in the setting of patient's recurrent ITP. Patient will be admitted for uncontrolled abdominal pain and placed on n.p.o., IV fluids, bowel rest and possible discontinuation of Depakote, Lyrica or other agents that may be contributing to patient's pancreatitis. PMH/PSH - Past Medical History Cardiovascular: positive: None Respiratory: positive: None Neuro: positive: None Endocrine/Autoimmune: positive: None GI: positive: GERD : positive: Kidney stones HEENT: positive: None Psych: positive: Anxiety Musculoskeletal: positive: Osteoarthritis Derm: positive: None, Psoriasis MRSA Hx?: Yes - Past Surgical History General: positive: Cholecystectomy, Appendectomy, Splenectomy Ortho: positive: Hip replacement HEENT: positive: Tonsil/Adenoidectomy Social & Family Hx - Social History Does the pt smoke?: No Smoking Status: Never smoker Does the pt drink ETOH?: Yes Does the pt have substance abuse?: No - POLST Patient has POLST: No Meds/Allgy - Home Medications Home Medications: Ambulatory Orders Medication Instructions Recorded Confirmed Aspirin EC [Ecotrin] 81 mg PO DAILY 06/27/13 05/06/18 LORazepam [Ativan] 0.5 mg PO ONCE PRN 06/27/13 05/06/18 Pregabalin [Lyrica] 200 mg PO HS 06/27/13 05/06/18 Vit A,C & E/Lutein/Minerals 1 each PO DAILY 06/27/13 05/06/18 [Ocuvite Tablet] Cyanocobalamin (Vitamin B-12) 1,000 mcg PO DAILY 02/09/14 05/06/18 [Vitamin B-12] Cholecalciferol (Vitamin D3) 2,000 units ORAL DAILY 05/03/14 05/06/18 [Vitamin D3] oxyCODONE ER [OxyCONTIN] 20 mg ORAL BID 05/03/14 05/06/18 Divalproex Sodium [Depakote] 1,750 mg PO QPM 05/06/18 05/06/18 levOCARNitine tartrate 250 mg PO 05/09/18 [l-Carnitine] Famotidine 20 mg PO DAILY #30 tablet 09/28/18 Mirabegron [Myrbetriq] 25 mg PO DAILY 01/06/19 01/06/19 Polyethylene Glycol 3350 [Miralax] 17 gm PO DAILY 01/06/19 01/06/19 - Allergies Allergies/Adverse Reactions: Allergies Allergy/AdvReac Type Severity Reaction Status Date / Time amitriptyline [Amitriptyline] Allergy Intermediate Hallucinati Verified 02/20/19 22:00 ons heparinoids Allergy Intermediate Rash Verified 02/20/19 22:00 Review of Systems - All Other Systems All Other Systems: reports: Reviewed and negative Prior Level of Functionality: Patient's functional capacity and home ADLs unknown Exam - Vital Signs Reviewed Vital Signs: Yes Vital Signs: Vital Signs x48h Temp Pulse Resp BP Pulse Ox 02/21/19 00:00 77 12 145/77 H 94 02/20/19 21:56 36.8 C 74 16 131/94 H 96 - Physical Exam General Appearance: positive: No acute distress, Alert, Anxious, Other (Patient displays neurocognitive deficits) Eyes Bilateral: positive: Normal inspection, PERRL, EOMI ENT: positive: ENT inspection nml, Pharynx nml, No signs of dehydration Neck: positive: Nml inspection, Thyroid nml, No JVD, Trachea midline. negative: Thyromegaly Respiratory: positive: Chest non-tender, No respiratory distress, Breath sounds nml Cardiovascular: positive: Regular rate & rhythm, No murmur, No gallop Peripheral Pulses: positive: 2+ Abdomen: positive: Tenderness (Epigastrium), Abnml bowel sounds. negative: No distention, Guarding, Rebound, Hepatomegaly Back: positive: Nml inspection Skin: positive: Color nml, No rash, Warm Neurologic/Psychiatric: positive: Disoriented to place, Disoriented to time, Depressed mood/affect, Other (Difficult to assess neurologic and psychiatric status due to patient's underlying mild to moderate neurocognitive deficits) Babinski Reflex: Right: Absent, Left: Absent Results - Lab Results Lab results reviewed: Yes Fish Bones: 02/20/19 22:35 02/20/19 22:35 Other Lab Results: Lab Results x24hrs 02/20/19 02/20/19 02/20/19 Range/Units 22:35 22:35 22:35 WBC 11.8 H (4.8-10.8) x10^3/uL RBC 3.57 L (4.70-6.10) 10^6/uL Hgb 12.3 L (14.0-18.0) g/dL Hct 36.6 L (42.0-52.0) % MCV 102.6 H (80.0-94.0) fL MCH 34.5 H (27.0-31.0) pg MCHC 33.6 (32.0-36.0) g/dL RDW 13.6 (12.0-15.0) % Plt Count 145 (130-450) 10^3/uL MPV 10.4 (7.4-11.4) fL Neut # (Auto) 8.9 H (1.5-6.6) 10^3/uL Lymph # (Auto) 0.9 L (1.5-3.5) 10^3/uL [place] # (Auto) 1.9 H (0.0-1.0) 10^3/uL Eos # (Auto) 0.0 (0.0-0.7) 10^3/uL Baso # (Auto) 0.0 (0.0-0.1) 10^3/uL Absolute Nucleated RBC 0.00 x10^3/uL Nucleated RBC % 0.0 /100WBC Sodium 133 L (135-145) mmol/L Potassium 4.5 (3.5-5.0) mmol/L Chloride 95 L (101-111) mmol/L Carbon Dioxide 29 (21-32) mmol/L Anion Gap 9.0 (6-13) BUN 30 H (6-20) mg/dL Creatinine 0.8 (0.6-1.2) mg/dL Estimated GFR (MDRD) 93 (>89) Glucose 104 H (70-100) mg/dL Calcium 9.9 (8.5-10.3) mg/dL Total Bilirubin 0.9 (0.2-1.0) mg/dL AST 30 (10-42) IU/L ALT 13 (10-60) IU/L Alkaline Phosphatase 41 L (42-121) IU/L Total Protein 7.2 (6.7-8.2) g/dL Albumin 3.3 (3.2-5.5) g/dL Globulin 3.9 (2.1-4.2) g/dL Albumin/Globulin Ratio 0.8 L (1.0-2.2) Amylase 115 H (28-100) U/L Lipase 171 H (22-51) U/L - Diagnostic Imaging Results Diagnostic Imaging Results: positive: Final report reviewed - EKG Results EKG Interpreted Independently: No Impression/Plan - Problem List Problem List: 1. Acute recurrent pancreatitis Drug-induced pancreatitis versus idiopathic cause. Patient was previously taking omeprazole and was told to discontinue this drug as it may cause pancreatitis. In addition, possible drugs that he is currently on may be also contributing to the recurrence of pancreatitis. Will obtain lipid panel, hold off on known iatrogenic causes (i.e. Lyrica, Depakote). Bowel rest, n.p.o. status, IV fluids, pain control with morphine for now. CT abdomen pelvis does not show fluid collection, pseudocyst, necrosis or mass effects. Peripancreatic fat induration similar to prior imaging. This may very well be stable chronic pancreatitis. In addition biliary tree is unremarkable, patient is status post splenectomy as well as cholecystectomy. LFTs are unremarkable. There was a mention of occasional alcohol use. Alcohol level pending. states no excessive drinking noted. 2. Progressive neurocognitive deficits superimposed on polypharmacy There was a concern of patient's polypharmacy noted on Maranda Izquierdo's note on 01/06/2019 for which patient is on Lyrica, Myrbetriq, Depakote, oxycodone 20 mg p.o. twice daily. In addition patient is on Ativan 0.5 mg p.o. as needed. Will obtain a valproic acid level. Alcohol level. Recently patient was increased dosage of Myrbetriq by primary and primary urologist Dr. Evans. All p.o. meds will be held for now. 3. Hyponatremia secondary to mild dehydration Patient will be placed on LR for IV fluid resuscitation in the setting of his n.p.o. status correcting underlying electrolyte disturbances. 4. History of refractory recurrent ITP status post steroids/splenectomy/Rituxan in remission Patient has been in remission for several years now based on Dr. Maranda Izquierdo's note on 01/06/2019 status post Rituxan f/u at hematology clinic every 6 months for platelet check. Current plt 145k, Without evidence of bleeding, bruising or ecchymotic lesions. 5. Seizure disorders (akinetic) Patient was initially started on Keppra and has been on Vimpat in the past. Currently now on Depakote at 1750 mg daily which may be precipitating pancreatitis or other side effects such as thrombocytopenia and anemia's. In addition patient is on Lyrica and may also need to be held for now in the setting of patient's pancreatitis. I will place patient on Dilantin 100 mg IV q. 8 and will need to get a hold of Dr. Billy seay in terms of placing him on oral Dilantin and to see if it is okay to permanently discontinue Lyrica and Depakote as these may be causing his recurrent pancreatitis. Due to patient being on Depakote abrupt withdrawal or d/c may precipitate a seizure we will cover with IV Ativan as needed. 6. 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 Maranda Izquierdo's note on 01/06/2019 patient may have underlying MDS d iagnoses. Patient does have a follow-up to see Dr. Izquierdo as scheduled for platelet checks as well as for further evaluation for MDS. Patient is on vitamin B12 at this point presumably for deficiency. Will recheck B12 and folic acid levels. Slight anemia on presentation with macrocytosis noted with MCV of 102.6. No bleeding at this time. 7. History of prostate CA status post transurethral resection of the prostate Primary urologist is Dr. Evans who recently increased his Myrbetriq to 50 mg p.o. daily for treatment of OAB S. However patient has been increasingly more confused with memory deficits on his already existing mild to moderate neurocognitive deficits diagnosed by his primary neurologist. Will be on n.p.o. status due to his pancreatitis. Patient's last PSA was slightly elevated. 8. Advance care planning and education Medical conditions with plan of care as well as symptoms management, pain control, goals of care as well as trajectory of illnesses were discussed in detail. Further Discussions on goals of care as it relates to patient's medical conditions should be discussed with the introduction of palliative care service, especially in the setting of patient's CODE STATUS. POLST and Advance directive on file with DPOA. DVT prophylaxis with SCD boots. GI prophylaxis with IV Pepcid CODE STATUS: Full code Core Measures - Anticipated LOS I expect patient to be DC'd or transferred within 96 hours.: Yes - Issues Hospital Issues and Management Plan: Patient to be assessed with daily labs abdominal exams and placed on bowel rest IV fluids and supportive treatment. Possible MRCP or other imaging studies. Patient may pose post discharge issues for discharge due to age, polypharmacy and multiple comorbidities. Palliative care consultation requested - DVT/VTE - Prophylaxis VTE/DVT Device ordered at admit?: Yes VTE/DVT Prophylaxis med ordered at admit?: No Not Ordered - Medical Reason: Contraindicated (Patient has history of ITP) - Stroke - Rehab Assessment Rehab services assessment to be ordered?: No Not Ordered - Medical Reason: Not indicated - AMI - Statin at Admit Aspirin Prescribed on Admit: Yes
[2019-02-21] MEDS ORDERED: LORazepam 2 MG/ML VIAL IVP PRN (01:17)
[2019-02-21 01:27] LABS: VALPROIC ACID (DEPAKOTE) 112.2 ug/mL
[2019-02-21] MEDS: SODIUM CHLORIDE FLUSH 0.9% 10 ML SYRINGE IVP SCH ×3 (02:26→06:32)
[2019-02-21] MEDS: FAMOTIDINE 20 MG/2 ML VIAL IVP SCH ×3 (02:45→20:01)
[2019-02-21] MEDS: LACTATED RINGERS 1,000 ML IV SCH ×3 (02:46→17:00)
[2019-02-21 05:23] LABS: BASOPHILS % (AUTO) 0.2 %; HGB - HEMOGLOBIN 11.4 g/dL (14.0-18.0); LYMPHOCYTES # (AUTO) 1.4 10^3/uL (1.5-3.5); LYMPHOCYTES % (AUTO) 12.4 %; MEAN CORPUSCULAR HEMOGLOBIN 34.1 pg (27.0-31.0); MEAN CORPUSCULAR HGB CONC 33.1 g/dL (32.0-36.0); MEAN CORPUSCULAR VOLUME 103.2 fL (80.0-94.0); MEAN PLATELET VOLUME 10.6 fL (7.4-11.4); MONOCYTES # (AUTO) 1.8 10^3/uL (0.0-1.0); MONOCYTES % (AUTO) 15.9 %; NEUTROPHILS # (AUTO) 7.9 10^3/uL (1.5-6.6); NEUTROPHILS % (AUTO) 71.5 %; PLT - PLATELET COUNT 135 10^3/uL (130-450); RED BLOOD COUNT 3.34 10^6/uL (4.70-6.10); RED CELL DISTRIBUTION WIDTH 13.6 % (12.0-15.0); WHITE BLOOD COUNT 11.1 x10^3/uL (4.8-10.8)
[2019-02-21 05:30] LABS: ALBUMIN 2.5 g/dL (3.2-5.5); ALBUMIN/GLOBULIN RATIO 0.8 (1.0-2.2); BILIRUBIN,TOTAL 0.8 mg/dL (0.2-1.0); CALCIUM 9.2 mg/dL (8.5-10.3); CREATININE 0.7 mg/dL (0.6-1.2); TOTAL PROTEIN 5.7 g/dL (6.7-8.2)
[2019-02-21 05:38] LABS: CHOL/HDL RATIO 3.5 (<5.0); CHOLESTEROL 115 mg/dL; HDL CHOLESTEROL 33 mg/dL; LDL CHOLESTEROL,CALCULATED 72 mg/dL; LDL/HDL RATIO 2.2 (<3.6); VLDL CHOLESTEROL 10 mg/dL
[2019-02-21] MEDS ORDERED: SODIUM CHLORIDE 0.9% IV SCH (06:00)
[2019-02-21] MEDS ORDERED: PHENYTOIN IV SCH (06:00)
[2019-02-21] MEDS: PHENYTOIN 100 MG/2 ML VIAL IVP SCH ×3 (06:11→21:06)
[2019-02-21] MEDS: MORPHINE 2 MG/ML SYRINGE IVP PRN ×3 (06:32→11:47)
[2019-02-21] MEDS ORDERED: PANTOPRAZOLE 40 MG VIAL IVP SCH (07:00)
[2019-02-21] MEDS: POLYETHYLENE GLYCOL 3350 17 GM PACKET PO SCH (08:12)
--- NOTE | 2019-02-21 15:03 | ADVANCE CARE PLANNING NOTE ---
Advance Care Planning - Date/Time Date: 02/21/19 Time: 15:00 - Purpose of encounter Text: To explore her understanding and his understanding of CODE STATUS with regards to full resuscitation versus do not Resuscitate - Parties in attendance Parties in attendance: , hospitalist, patient - Decisional capacity Decisional capacity of: Patient is easily confused, tired, not feeling well. Spends most of his time sleeping during the day. 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 He also has a history of an intracranial hemorrhage with subsequent akinetic seizures that have been difficult to control. He has been tried on Vimpat, Keppra, gabapentin, and Lamictal. Most recently his seizures are now controlled by valproic acid and Lyrica. His additional problem is that of prostate cancer and has had a TURP. He is on Proscar and Myrbetriq to control his urge incontinence. The Myrbetriq was recently increased from 25 to 50 mg in the last couple of weeks. He lives with his . They live in their own home that has been paid for over the years. They have no dad. Their car is paid for. She is his main care provider in the home. She finds relief from caregiver burden by working 2 days a week. She works 4 hours a day. This allows her to have mental stimulation, social contact, to get out of the house. He is left by himself. On those days, however, her son goes to the house for lunch to check up on him. And 1 of those days she puts the dog and dog daycare so he does not have to worry about the dog. He is life is definitely narrow down to being more and more dependent on his family, specifically his . He really cannot leave the home without her or anyone supervision. His combination of medications is left him really sedated and he is spending most of his time sleeping. He is commented to her several times that "this is not alive, I am sleeping my life away". The intracranial hemorrhage he suffered has left him with mild to moderate cognitive deficit. She and he are starting to make plans for the future in a tentative way. She is starting to think forward about what would happen when he needs care and she cannot take care of him. She is wondering how much it would cost to put him in a fpc facility versus an assisted living facility. She herself never wants to go there with him. She would not want to be in an assisted living facility because she feels that her life is very vibrant; she loves to travel; and she would not want to live with him in assisted living facility. She has 1 son [place]. Her son comes over periodically to have lunch with him, and to provide her with time to get out of the house to do errands.She does have a child that lives in [place]. That child is getting ready to retire with her spouse. They are going to sell their home, buy an RV, travel a bit through the country as they slowly make their way to [facility]. The eventual plan is for them to move in with she and her . This will help with taking care of him and allow her to still maintain some independence and quality of life for herself. 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 He came to the emergency room and a CT of the abdomen shows peripancreatic fat induration, mildly elevated lipase and amylase, but no white cell count, no dehydration, no hypocalcemia. He appears to have mild pancreatitis and is been admitted for n.p.o. status, IV pain medicine. She would like for him to be FULL CODE. This is fraught with difficulty in that valproic acid is associated with pancreatitis. So was it common bile duct pathology from residual sludge or is it valproic acid causing him pancreatitis. Lyrica is associated with pancreatitis but usually in women who are between the age of 50-59, have been on Lyrica less than a month, and her diabetic on [place]. None of those criteria applied to him. - Objective/Medical story Objective/Medical Story: This is a 78-year-old male with a significant past medical history of Refractory ideal pathic recurrent thrombocytopenic purpura Status post steroids, splenectomy and the use of Rituxan, now in remission for several years with stable platelets, history of intracranial hemorrhage with subsequent akinetic seizures, polypharmacy, prostate cancer status post transurethral resection of the prostate, neurocognitive impairment as a result of prior intracranial hemorrhage, Who presented in the early a.m. hours in the ED with recurrence of his abdominal pain for which CT abdomen pelvis showed peripancreatic fat induration which appeared to be of chronic nature versus acute recurrent pa ncreatitis with no evidence of pseudocysts, fluid collections, masses. Patient is status post splenectomy as well as cholecystectomy. Patient did not appear to have any other abnormalities other than an elevated lipase yesterday at 282 with today lipase of 171. Patient had a history of a bout of pancreatitis back on 09/28/2018 with a lipase of 810. Patient was sent home yesterday and was told to continue his home medications of Lyrica, Depakote, Myrbetriq, Ativan, l- carnitine, vitamin B12, as well as aspirin daily. Patient also was on oxycodone taking 20 mg p.o. twice daily with no relief to the abdominal pain. Patient is seen as an outpatient for his ideal pathic thrombocytopenic purpura by Maranda Izquierdo who last saw patient on 01/06/2019. In addition patient sees Dr. Evans who is his primary urologist for his prostate cancer and also sees Dr. Billy seay from [place] who is his primary neurologist. There was discussion on taking patient off the Lyrica as acknowledgment was made that this could possibly be causing patient's pancreatitis. In addition, states that patient has been diagnosed with mild to moderate neurocognitive deficits by primary neurologist who likely may need to readjust or discontinue other medications (i.e lyrica) as Dr. Izquierdo was concerned about his polypharmacy in the setting of patient's akinetic seizures could not completely discontinue Dep akote due to withdrawal seizures. Dr. Izquierdo also mentioned that patient may have macrocytic anemia that goes along with MDS diagnoses in the setting of patient's recurrent ITP. Patient will be admitted for uncontrolled abdominal pain and placed on n.p.o., IV fluids, bowel rest and possible discontinuation of Depakote, Lyrica or other agents that may be contributing to patient's pancreatitis. PMH/PSH - Past Medical History Cardiovascular: positive: None Respiratory: positive: None Neuro: positive: None Endocrine/Autoimmune: positive: None GI: positive: GERD : positive: Kidney stones HEENT: positive: None Psych: positive: Anxiety Musculoskeletal: positive: Osteoarthritis Derm: positive: None, Psoriasis MRSA Hx?: Yes - Past Surgical History General: positive: Cholecystectomy, Appendectomy, Splenectomy Ortho: positive: Hip replacement HEENT: positive: Tonsil/Adenoidectomy In the last 12 hours of admission, his CBC stayed stable. BUN and creatinine have stayed stable. He does not have a fever. Blood pressure stable. Calcium, creatinine stable. A [place]'s criteria he only meets 1 week is over the age of 55. As such as pancreatitis is mild. He still has pain and is requiring IV pain medicine. He is tolerating clear liquids. - Goals of Care Goals of care determinations: He and his would like him to be able to stay at home for as long as possible as long as she is capable of taking care of him. She recognizes the decreasing mobility, deteriorated overall status, and also acknowledges that he feels that his quality of life is significantly diminished. However she loves him very much, she is not ready to let him go yet. - Plan Plan: 1. After discussion of resuscitative status,and what a resuscitative effort looks like (chest compressions, probable rib fractures, cardioversion, intubation, poor prognosis at the end of it all) she and he feel that he should be DO NOT RESUSCITATE. 2. She is already making plans for the future that are practical in nature. Her daughter and son-in-law will come live with them and help her take care of him. This may delay the inevitability, if not preclude completely, the need for him to have to go to a fpc facility. 3. She is starting to realize that she, her , and her children should start to have a broader discussion of quality of life. What does not mean for him? What does not mean for her? Does she recognize and acknowledge his philosophies and will she comply with his wishes? Should they continue all treatment at all cost if he feels his quality of life is significantly diminished.? Question that he needs to answer, or at least begin to consider, is when to start thinking about not doing treatment, or withdrawing treatment. Initially she is alarmed by this conversation. She was clarifying and asking questions to the effect of "is he dying now?" I explained to her that he is not. He has had a short-term event, most likely induced by medication, and once we stop the medication, he should return back to his baseline. However these questions are more for consideration of the long-term, the future of his expected deterioration. She and her have time to thoughtfully discuss, include their children in this, and come to some preliminary decisions. - Code Status Code Status: Do Not Attempt Resuscitation - Time Spent on Advance Care Planning Time spent on advance care plannin
[2019-02-21] MEDS: MORPHINE 2 MG/ML CARPUJECT IVP PRN ×4 (15:12→22:35)
[2019-02-22] MEDS: LACTATED RINGERS 1,000 ML IV SCH ×5 (00:35→21:16)
[2019-02-22] MEDS: SODIUM CHLORIDE FLUSH 0.9% 10 ML SYRINGE IVP SCH ×3 (00:35→17:20)
[2019-02-22] MEDS: MORPHINE 2 MG/ML CARPUJECT IVP PRN ×4 (00:44→13:46)
[2019-02-22] MEDS: PHENYTOIN 100 MG/2 ML VIAL IVP SCH (06:02)
[2019-02-22 06:04] LABS: BASOPHILS % (AUTO) 0.1 %; HGB - HEMOGLOBIN 11.6 g/dL (14.0-18.0); LYMPHOCYTES # (AUTO) 1.1 10^3/uL (1.5-3.5); LYMPHOCYTES % (AUTO) 10.7 %; MEAN CORPUSCULAR HEMOGLOBIN 34.6 pg (27.0-31.0); MEAN CORPUSCULAR VOLUME 101.7 fL (80.0-94.0); MEAN PLATELET VOLUME 10.8 fL (7.4-11.4); MONOCYTES # (AUTO) 1.1 10^3/uL (0.0-1.0); MONOCYTES % (AUTO) 10.9 %; NEUTROPHILS # (AUTO) 7.7 10^3/uL (1.5-6.6); NEUTROPHILS % (AUTO) 78.3 %; PLT - PLATELET COUNT 135 10^3/uL (130-450); RED BLOOD COUNT 3.34 10^6/uL (4.70-6.10); RED CELL DISTRIBUTION WIDTH 13.2 % (12.0-15.0); WHITE BLOOD COUNT 9.8 x10^3/uL (4.8-10.8)
[2019-02-22] MEDS: SODIUM CHLORIDE FLUSH 0.9% 10 ML SYRINGE IVP PRN ×2 (06:09→21:10)
[2019-02-22 06:11] LABS: ALBUMIN 2.7 g/dL (3.2-5.5); ALBUMIN/GLOBULIN RATIO 0.8 (1.0-2.2); BILIRUBIN,TOTAL 0.8 mg/dL (0.2-1.0); CALCIUM 9.3 mg/dL (8.5-10.3); CREATININE 0.5 mg/dL (0.6-1.2); TOTAL PROTEIN 6.2 g/dL (6.7-8.2)
[2019-02-22] MEDS: POLYETHYLENE GLYCOL 3350 17 GM PACKET PO SCH (08:20)
[2019-02-22] MEDS: FAMOTIDINE 20 MG/2 ML VIAL IVP SCH ×2 (08:21→21:08)
--- NOTE | 2019-02-22 10:01 | PROVIDER PROGRESS NOTE ---
Subjective - Prog Note Date Prog Note Date: 02/22/19 Prog Note Time: 09:59 - Subjective Pt reports feeling: No change Subjective: He continues to frown with unhappy fascies expression but states his pain is gone unless he moves.. Up to [place] RN. No seizures on dilantin IV Current Medications - Current Medications Current Medications: Active Medications Acetaminophen (Tylenol) 650 mg PO Q4HR PRN PRN Reason: Pain 1 to 4 Famotidine (Pepcid) 20 mg IVP BID [facility] Last Admin: 02/22/19 08:21 Dose: 20 mg Lactated Ringer's (Lr) 1,000 mls @ 150 mls/hr IV .Q6H40M [facility] Last Admin: 02/22/19 06:24 Dose: 150 mls/hr Lorazepam (Ativan Inj (Vial)) 2 mg IVP PRN PRN PRN Reason: for seizure events Morphine Sulfate (Morphine (Carpuject)) 2 mg IVP Q2H PRN PRN Reason: Pain 8 to 10 Last Admin: 02/22/19 06:54 Dose: 2 mg Ondansetron HCl (Zofran Odt) 4 mg TL Q6HR PRN PRN Reason: Nausea / Vomiting Phenytoin Sodium (Dilantin) 100 mg PO TID [facility] Polyethylene Glycol (Miralax) 17 gm PO DAILY [facility] Last Admin: 02/22/19 08:20 Dose: 17 gm Sodium Chloride (Normal Saline Flush 0.9%) 10 ml IVP PRN PRN PRN Reason: NEEDED PER PROVIDER ORDERS Last Admin: 02/22/19 06:09 Dose: 10 ml Sodium Chloride (Normal Saline Flush 0.9%) 10 ml IVP 0100,0900,1700 [facility] Last Admin: 02/22/19 00:35 Dose: Not Given Zolpidem Tartrate (Ambien) 5 mg PO QPM PRN PRN Reason: Insomnia Aspirin EC [Ecotrin] 81 mg PO DAILY 06/27/13 LORazepam [Ativan] 0.5 mg PO ONCE PRN 06/27/13 Pregabalin [Lyrica] 200 mg PO QPM 06/27/13 Vit A,C & E/Lutein/Minerals [Ocuvite Tablet] 1 each PO DAILY 06/27/13 Cyanocobalamin (Vitamin B-12) [Vitamin B-12] 1,000 mcg PO DAILY 02/09/14 Cholecalciferol (Vitamin D3) [Vitamin D3] 2,000 units ORAL DAILY 05/03/14 oxyCODONE ER [OxyCONTIN] 20 mg ORAL BID 05/03/14 levOCARNitine tartrate [l-Carnitine] 250 mg PO BID 05/09/18 Polyethylene Glycol 3350 [Miralax] 17 gm PO DAILY 01/06/19 Divalproex ER [Depakote ER] 750 mg PO DAILY 02/21/19 Divalproex Sodium [Divalproex Sodium ER] 1,000 mg PO QPM 02/21/19 Finasteride 5 mg PO DAILY 02/21/19 Mirabegron [Myrbetriq] 50 mg PO DAILY 02/21/19 Objective - Vital Signs/Intake & Output Reviewed Vital Signs: Yes Vital Signs: Vital Signs x48h Temp Pulse Resp BP Pulse Ox 02/22/19 07:49 36.4 C L 62 20 152/90 H 96 02/22/19 07:03 57 L 168/78 H 02/22/19 06:45 68 141/92 H 02/22/19 06:30 65 177/80 H 02/22/19 06:15 59 L 165/85 H 02/22/19 06:10 64 155/102 H 02/22/19 06:05 63 170/97 H 02/22/19 06:00 64 160/88 H 02/22/19 04:43 36.7 C 68 16 159/79 H 96 Intake & Output: Intake & Output 02/19/19 02/20/19 02/21/19 02/22/19 23:59 23:59 23:59 23:59 Intake Total 1000 4319.5 1132.5 Output Total 1625 300 Balance 1000 2694.5 832.5 - Objective General Appearance: positive: No acute distress, Alert, Other (slowed psychomotor responses, normal for him from his old intracranial bleed) Eyes Bilateral: positive: PERRL, EOMI ENT: positive: Pharynx nml Neck: positive: No JVD. negative: Stiff neck, Carotid bruit Respiratory: positive: Chest non-tender. negative: Wheezes, Rales, Rhonchi Cardiovascular: positive: Regular rate & rhythm. negative: Systolic murmur, Gallop/S4, Friction rub Abdomen: positive: No organomegaly, Nml bowel sounds, No distention, Tenderness (epigastric, mild). negative: Guarding, Rebound Skin: positive: Warm, Dry Extremities: positive: Full ROM, No pedal edema Neurologic/Psychiatric: positive: CN's nml (2-12), Disoriented to place (at times), Disoriented to time, Slurred/abnml speech, Depressed mood/affect - Lab Results Fish Bones: 02/22/19 05:47 02/22/19 05:47 Other Labs: Lab Results x24hrs 02/22/19 02/22/19 02/22/19 Range/Units 05:47 05:47 05:47 WBC 9.8 (4.8-10.8) x10^3/uL RBC 3.34 L (4.70-6.10) 10^6/uL Hgb 11.6 L (14.0-18.0) g/dL Hct 34.0 L (42.0-52.0) % MCV 101.7 H (80.0-94.0) fL MCH 34.6 H (27.0-31.0) pg MCHC 34.0 (32.0-36.0) g/dL RDW 13.2 (12.0-15.0) % Plt Count 135 (130-450) 10^3/uL MPV 10.8 (7.4-11.4) fL Neut # (Auto) 7.7 H (1.5-6.6) 10^3/uL Lymph # (Auto) 1.1 L (1.5-3.5) 10^3/uL [place] # (Auto) 1.1 H (0.0-1.0) 10^3/uL Eos # (Auto) 0.0 (0.0-0.7) 10^3/uL Baso # (Auto) 0.0 (0.0-0.1) 10^3/uL Absolute Nucleated RBC 0.00 x10^3/uL Nucleated RBC % 0.0 /100WBC Sodium 134 L (135-145) mmol/L Potassium 3.7 (3.5-5.0) mmol/L Chloride 99 L (101-111) mmol/L Carbon Dioxide 27 (21-32) mmol/L Anion Gap 8.0 (6-13) BUN 15 (6-20) mg/dL Creatinine 0.5 L (0.6-1.2) mg/dL Estimated GFR (MDRD) 160 (>89) Glucose 125 H (70-100) mg/dL Calcium 9.3 (8.5-10.3) mg/dL Total Bilirubin 0.8 (0.2-1.0) mg/dL AST 25 (10-42) IU/L ALT 11 (10-60) IU/L Alkaline Phosphatase 39 L (42-121) IU/L Total Protein 6.2 L (6.7-8.2) g/dL Albumin 2.7 L (3.2-5.5) g/dL Globulin 3.5 (2.1-4.2) g/dL Albumin/Globulin Ratio 0.8 L (1.0-2.2) Lipase 90 H (22-51) U/L Phenytoin < 2.5 ug/mL ABX Reporting Has patient been on IV antibiotics over the past 48 hours?: No Assessment/Plan - Problem List (1) Pancreatitis, acute Impression: [place]'s criteria only met one point. His labs are normalizing. His pain is almost gone. At this time he is not felt to have alcoholic pancreatitis, and has had his gallbladder out so we do not think gallstone pancreatitis. However, you could still have retained sludge or stones after gallbladder being taken out. We are treating it to his seizure medication from Depakote. Less likely Lyrica. He is now on Dilantin IV and no seizures for 24 hours. Plan: Change Dilantin IV to p.o. MRCP to evaluate pancreatic and common bile duct anatomy Advance diet to normal diet from full liquid Qualifiers: Pancreatitis type: unspecified pancreatitis type Acute pancreatitis com plication: no infection or necrosis Qualified Code(s): K85.90 - Acute pancreatitis without necrosis or infection, unspecified (2) Sedated due to medication Impression: He has been on OxyContin stable dose for probably close to 10 years. The Myrbetriq is new. His seizure drug is sedated. Lyrica is sedated. He is still sleeping quite a bit with Depakote removed. He and his will have to sit down with her physicians to figure out what medication they can withdraw. Right now she is already resistant to stopping the Myrbetriq because it really helps with his urge to urinate. (3) Akinetic seizures Impression: Has failed Vimpat, Keppra, Lamictal. Now currently on Lyrica and Depakote. However Depakote needs to be stopped. I have discussed the case with his neuro logist, Dr. seay, he is amenable to using Dilantin and feels that is probably all we have left given. He has been IV loaded, and we are now switching him to p.o. Dilantin. We are continuing to monitor to make sure he does not have recurrence of his seizures. Plan is for discharge tomorrow (4) Anemia, macrocytic Impression: B12 and folate were mentioned in the history and physical. Not ordered. Will order today. 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 But he also may have underlying myelodysplastic syndrome. He is already followed by oncology and will be seeing them on a routine basis. No urgent visit needed. (5) Hyponatremia Impression: comes and goes. Not severe. No change in meds or IVF.
[2019-02-22] MEDS: PHENYTOIN ER 100 MG CAPSULE PO SCH ×2 (13:46→21:07)
[2019-02-22] MEDS ORDERED: oxyCODONE ER 10 MG TABLET PO SCH (14:30)
[2019-02-23] MEDS: MORPHINE 2 MG/ML CARPUJECT IVP PRN ×2 (00:13→03:46)
[2019-02-23] MEDS ORDERED: PHENYTOIN IVP ONE ×2 (00:15→18:45)
[2019-02-23] MEDS ORDERED: SODIUM CHLORIDE 0.9% IVP ONE ×2 (00:15→18:45)
[2019-02-23] MEDS: SODIUM CHLORIDE FLUSH 0.9% 10 ML SYRINGE IVP SCH ×3 (00:58→18:10)
[2019-02-23] MEDS: LACTATED RINGERS 1,000 ML IV SCH (03:46)
[2019-02-23] MEDS: ONDANSETRON ODT 4 MG TABLET TL PRN (04:04)
[2019-02-23 05:40] LABS: ALBUMIN 2.8 g/dL (3.2-5.5); ALBUMIN/GLOBULIN RATIO 0.8 (1.0-2.2); BASOPHILS % (AUTO) 0.3 %; BILIRUBIN,TOTAL 0.8 mg/dL (0.2-1.0); CALCIUM 9.3 mg/dL (8.5-10.3); CREATININE 0.5 mg/dL (0.6-1.2); EOSINOPHILS % (AUTO) 0.1 %; HGB - HEMOGLOBIN 11.7 g/dL (14.0-18.0); LYMPHOCYTES # (AUTO) 0.8 10^3/uL (1.5-3.5); MEAN CORPUSCULAR HEMOGLOBIN 34.8 pg (27.0-31.0); MEAN CORPUSCULAR HGB CONC 34.6 g/dL (32.0-36.0); MEAN CORPUSCULAR VOLUME 100.5 fL (80.0-94.0); MEAN PLATELET VOLUME 11.4 fL (7.4-11.4); MONOCYTES # (AUTO) 1.2 10^3/uL (0.0-1.0); MONOCYTES % (AUTO) 12.6 %; NEUTROPHILS # (AUTO) 7.4 10^3/uL (1.5-6.6); PLT - PLATELET COUNT 139 10^3/uL (130-450); RED BLOOD COUNT 3.37 10^6/uL (4.70-6.10); RED CELL DISTRIBUTION WIDTH 13.1 % (12.0-15.0); TOTAL PROTEIN 6.1 g/dL (6.7-8.2); WHITE BLOOD COUNT 9.4 x10^3/uL (4.8-10.8)
[2019-02-23] MEDS: PHENYTOIN ER 100 MG CAPSULE PO SCH ×3 (06:04→16:41)
[2019-02-23] MEDS: FAMOTIDINE 20 MG/2 ML VIAL IVP SCH ×2 (08:30→21:05)
[2019-02-23] MEDS: SODIUM CHLORIDE FLUSH 0.9% 10 ML SYRINGE IVP PRN ×5 (08:30→21:05)
[2019-02-23] MEDS: POLYETHYLENE GLYCOL 3350 17 GM PACKET PO SCH (08:30)
--- NOTE | 2019-02-23 11:03 | PROVIDER PROGRESS NOTE ---
Assessment/Plan - Problem List (1) Pancreatitis, acute Qualifiers: Pancreatitis type: unspecified pancreatitis type Acute pancreatitis complication: no infection or necrosis Qualified Code(s): K85.90 - Acute pancreatitis without necrosis or infection, unspecified Assessment/Plan: He still has constant LUQ pain, and because of that, he had a poor night sleep, needed Morphine. He reports today that he could not tolerate the MRI machine yesterday and the test was aborted, and no imaging was done. I discussed this with his and the patient and will attempt to do MRCP again today, giving a sedative before. (2) Akinetic seizures Assessment/Plan: Has failed Vimpat, Keppra, Lamictal. He was on Lyrica and Depakote at this admission. However Depakote needed to be stopped. The previous Hospitalist discussed the case with his neurologist, Dr. Menchaca, who is amenable to using Dilantin and feels that is probably all we have left given. He has been IV loaded, and is now on p.o. Dilantin. Today the Dilantin level is still subtherapeutic. Will adjust the dose. No DCh home yet today, due to subtherapeutic new Dilantin dose. We are continuing to monitor to make sure he does not have recurrence of his seizures. Plan is for discharge tomorrow (3) Confusion Assessment/Plan: The patient had a Hx of neurocognitive deficit after brain injury. In addition, he didn't sleep all night, last night. Today he is confused, unable to follow cues. Will re-orient and allow to rest. If no better, then will evaluate for other etiologies, such as infection or consider brain imaging. Due to new confusion, he is not stable for DCh home today. SW to speak to , who is his primary home care nurse, regarding home needs. PT to evaluate as well, since he only needed a cane for ambulation at home, and yesterday here, he needed a walker. (4) Hyponatremia Assessment/Plan: This apparently comes and goes. Will change his LR at 125 cc/hr to NS with 20 mEq KCl, in preparation for DCh, possibly tomorrow. (5) Hypokalemia Assessment/Plan: Possibly due to inadequate intake, since he only took 25% then 75% of meal. Will replace K. Monitor BMP daily. (6) Anemia, macrocytic Assessment/Plan: B12 and folate were mentioned in the history and physical. Not ordered. Will order today. 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 But he also may have underlying myelodysplastic syn drome. He is already followed by oncology and will be seeing them on a routine basis. No urgent visit needed. - Current Meds Current Meds: Current Medications Generic Name Dose Route Start Last Admin Trade Name Freq PRN Reason Stop Dose Admin Famotidine 20 mg 02/21/19 01:00 02/23/19 08:30 Pepcid IVP 20 mg BID CRISTIANO Administration Ondansetron HCl 4 mg 02/21/19 00:39 02/23/19 04:04 Zofran Odt TL 4 mg Q6HR PRN Administration Nausea / Vomiting Phenytoin Sodium 100 mg 02/22/19 14:00 02/23/19 06:04 Dilantin PO 100 mg TID CRISTIANO Administration Polyethylene Glycol 17 gm 02/21/19 09:00 02/23/19 08:30 Miralax PO 17 gm DAILY CRISTIANO Administration Sodium Chloride 10 ml 02/21/19 00:39 02/23/19 08:30 Normal Saline Flush 0.9% IVP 10 ml PRN PRN Administration NEEDED PER PROVIDER ORDERS Sodium Chloride 10 ml 02/21/19 01:00 02/23/19 03:46 Normal Saline Flush 0.9% IVP 10 ml 0100,0900,1700 CRISTIANO Administration - Lab Result Fish Bone Diagrams: 02/23/19 05:11 02/23/19 05:11 Subjective - Subjective Patient Reports: Abdominal Pain Nursing Reports: Confused, Other (Poor sleep last night due to pain, needed Morphine, was not agitated or Sundowning though.) Objective Vital Signs: Vital Signs - 24 hr 02/22/19 02/23/19 02/23/19 16:13 00:00 08:00 Temperature 36.6 C 37.0 C 36.6 C Heart Rate [ 60 72 65 Brachial] Respiratory 16 18 18 Rate Blood Pressure 175/92 H 164/87 H 167/86 H [Right Brachial artery] O2 Saturation 96 95 93 Oxygen O2 Source Room air I&O (Last 24 Hrs): Intake and Output Totals x24h 02/21/19 02/22/1902/23/19 23:59 23:59 23:59 Intake Total 4319.5 3632.5 1275 Output Total 1625 725 750 Balance 2694.5 2907.5 525 General: Alert HEENT: Mucous membr. moist/pink Neck: Supple, No JVD Neuro: Other (Mild intentional tremor of R hand noted. Poor memory. TANGIRNAQ.) Cardiovascular: Regular rate, No murmurs Respiratory: No respiratory distress, Breath sounds nml Abdomen: Normal bowel sounds, Soft Extremities: No edema - Results Results: Laboratory Results WBC 9.4 x10^3/uL (4.8-10.8) 02/23/19 05:11 RBC 3.37 10^6/uL (4.70-6.10) L 02/23/19 05:11 Hgb 11.7 g/dL (14.0-18.0) L 02/23/19 05:11 Hct 33.8 % (42.0-52.0) L 02/23/19 05:11 MCV 100.5 fL (80.0-94.0) H 02/23/19 05:11 MCH 34.8 pg (27.0-31.0) H 02/23/19 05:11 MCHC 34.6 g/dL (32.0-36.0) 02/23/19 05:11 RDW 13.1 % (12.0-15.0) 02/23/19 05:11 Plt Count 139 10^3/uL (130-450) 02/23/19 05:11 MPV 11.4 fL (7.4-11.4) 02/23/19 05:11 Neut # (Auto) 7.4 10^3/uL (1.5-6.6) H 02/23/19 05:11 Lymph # (Auto) 0.8 10^3/uL (1.5-3.5) L 02/23/19 05:11 [place] # (Auto) 1.2 10^3/uL (0.0-1.0) H 02/23/19 05:11 Eos # (Auto) 0.0 10^3/uL (0.0-0.7) 02/23/19 05:11 Baso # (Auto) 0.0 10^3/uL (0.0-0.1) 02/23/19 05:11 Absolute Nucleated RBC 0.00 x10^3/uL 02/23/19 05:11 Nucleated RBC % 0.0 /100WBC 02/23/19 05:11 Sodium 133 mmol/L (135-145) L 02/23/19 05:11 Potassium 3.3 mmol/L (3.5-5.0) L 02/23/19 05:11 Chloride 99 mmol/L (101-111) L 02/23/19 05:11 Carbon Dioxide 26 mmol/L (21-32) 02/23/19 05:11 Anion Gap 8.0 (6-13) 02/23/19 05:11 BUN 12 mg/dL (6-20) 02/23/19 05:11 Creatinine 0.5 mg/dL (0.6-1.2) L 02/23/19 05:11 Estimated GFR (MDRD) 160 (>89) 02/23/19 05:11 Glucose 117 mg/dL (70-100) H 02/23/19 05:11 Calcium 9.3 mg/dL (8.5-10.3) 02/23/19 05:11 Total Bilirubin 0.8 mg/dL (0.2-1.0) 02/23/19 05:11 AST 32 IU/L (10-42) 02/23/19 05:11 ALT 17 IU/L (10-60) 02/23/19 05:11 Alkaline Phosphatase 40 IU/L (42-121) L 02/23/19 05:11 Total Protein 6.1 g/dL (6.7-8.2) L 02/23/19 05:11 Albumin 2.8 g/dL (3.2-5.5) L 02/23/19 05:11 Globulin 3.3 g/dL (2.1-4.2) 02/23/19 05:11 Albumin/Globulin Ratio 0.8 (1.0-2.2) L 02/23/19 05:11 Triglycerides 48 mg/dL (-149) 02/21/19 04:40 Cholesterol 115 mg/dL (-199) 02/21/19 04:40 LDL Cholesterol, Calc 72 mg/dL (-129) 02/21/19 04:40 VLDL Cholesterol 10 mg/dL 02/21/19 04:40 HDL Cholesterol 33 mg/dL (60-) L 02/21/19 04:40 LDL/HDL Ratio 2.2 (<3.6) 02/21/19 04:40 Cholesterol/HDL Ratio 3.5 (<5.0) 02/21/19 04:40 Amylase 115 U/L (28-100) H 02/20/19 22:35 Lipase 70 U/L (22-51) H 02/23/19 05:11 Vitamin B12 1287 pg/mL (180-914) H 02/23/19 05:11 Last Dose Date K 02/21/19 00:50 Last Dose Time [facility] 02/21/19 00:50 Phenytoin 3.9 ug/mL 02/23/19 05:11 Valproic Acid 112.2 ug/mL 02/21/19 00:50 Ethyl Alcohol < 5.0 mg/dL 02/21/19 00:50
[2019-02-23] MEDS: NS W/20 MEQ KCL 1,000 ML IV SCH (11:48)
[2019-02-23] MEDS: LORazepam 2 MG/ML VIAL IVP PRN ×2 (13:41→18:11)
[2019-02-23] MEDS ORDERED: LORazepam 2 MG/ML VIAL IVP PRN (14:09)
[2019-02-23] MEDS ORDERED: LORazepam 2 MG/ML VIAL IVP STA (15:45)
[2019-02-23] MEDS ORDERED: PHENYTOIN 100 MG/2 ML VIAL IVP ONE (19:00)
[2019-02-24] MEDS ORDERED: PHENYTOIN 100 MG/2 ML VIAL IVP ONE (00:15)
[2019-02-24] MEDS: SODIUM CHLORIDE FLUSH 0.9% 10 ML SYRINGE IVP SCH ×3 (01:06→17:05)
[2019-02-24 05:22] LABS: CALCIUM 9.1 mg/dL (8.5-10.3); CREATININE 0.5 mg/dL (0.6-1.2); PHENYTOIN (DILANTIN) 7.7 ug/mL
[2019-02-24 05:24] LABS: BASOPHILS % (AUTO) 0.2 %; HGB - HEMOGLOBIN 11.5 g/dL (14.0-18.0); LYMPHOCYTES # (AUTO) 0.9 10^3/uL (1.5-3.5); LYMPHOCYTES % (AUTO) 8.2 %; MEAN CORPUSCULAR HEMOGLOBIN 33.7 pg (27.0-31.0); MEAN CORPUSCULAR HGB CONC 33.7 g/dL (32.0-36.0); MEAN CORPUSCULAR VOLUME 100.1 fL (80.0-94.0); MEAN PLATELET VOLUME 11.2 fL (7.4-11.4); MONOCYTES # (AUTO) 1.2 10^3/uL (0.0-1.0); MONOCYTES % (AUTO) 11.5 %; NEUTROPHILS # (AUTO) 8.3 10^3/uL (1.5-6.6); NEUTROPHILS % (AUTO) 80.1 %; PLT - PLATELET COUNT 168 10^3/uL (130-450); RED CELL DISTRIBUTION WIDTH 13.2 % (12.0-15.0); WHITE BLOOD COUNT 10.3 x10^3/uL (4.8-10.8)
[2019-02-24] MEDS: NS W/20 MEQ KCL 1,000 ML IV SCH (07:01)
[2019-02-24] MEDS ORDERED: IOVERSOL 320 100 ML VIAL IVP ONE ×2 (07:54→08:44)
[2019-02-24] MEDS ORDERED: POTASSIUM CHLOR 10 MEQ/100 ML 10 MEQ/100 ML BAG IV ONE (08:49)
--- NOTE | 2019-02-24 08:54 | PROVIDER PROGRESS NOTE ---
Assessment/Plan - Problem List (1) Pancreatitis, acute Qualifiers: Pancreatitis type: unspecified pancreatitis type Acute pancreatitis complication: no infection or necrosis Qualified Code(s): K85.90 - Acute pancreatitis without necrosis or infection, unspecified Assessment/Plan: He could not tolerate the MRI scanner, which was attempted twice yesterday and one the day before. Will order a CT of pancreas area. His triglyceride level is normal. His lipase has improved daily (90>>70>>56 today). Therefore the abdominal pain may have a different etiology, which imaging will elucidate. Will resume the diet, after CT of abdomen, with low fat, easy to digest. Continue iv fluids until able to eat and hydrate normally. (2) Akinetic seizures Assessment/Plan: His a.m. Dilantin level was still below therapeutic. Will resume po dosing. Monitor Dilantin serum level daily in a.m. and no DCh until he is therapeutic. 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 He could not be persuaded to hold still for the MRI imaging. Today, he is more lethargic, since he received many doses of Ativan iv. PT will continue to work with patient and he may need PT at a SNF for rehab, due to deconditioning. (4) Hyponatremia Assessment/Plan: Assessment/Plan: This apparently comes and goes. Will change his NS at TKO to NS with K at 50 cc/hr. (5) Hypokalemia Assessment/Plan: Likely due to inadequate intake, since he was npo for long periods of time yesterday, plus sedated and not eating after MRI attempts. Will replace K by starting NS with KCl. Monitor BMP daily. (6) Anemia, macrocytic Assessment/Plan: B12 and folate were adequate. 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 But he also may have underlying myelodysplastic syndrome. He is already followed by oncology and will be seeing them on a routine basis. No urgent visit needed. (7) BPH (benign prostatic hyperplasia) Assessment/Plan: Tis is presumably why he dhara Finasteride at home. Will resume daily Finasteride, which will help his HTN slightly as well. (8) HTN (hypertension) Assessment/Plan: He was not on BP meds at home, except the Finasteride helped his BP some. He may have elevated BP here due to pain or confusion/agitation. Will restart the Finasteride, control pain, monitor BP and add a BP med like Norvasc potentially, if needed. - Current Meds Current Meds: Current Medications Generic Name Dose Route Start Last Admin Trade Name Freq PRN Reason Stop Dose Admin Famotidine 20 mg 02/21/19 01:00 02/23/19 21:05 Pepcid IVP 20 mg BID CRISTIANO Administration Lorazepam 2 mg 02/23/19 12:28 02/23/19 18:11 Ativan Inj (Vial) IVP 2 mg PRN PRN Administration PER PHYSICIAN ORDER Ondansetron HCl 4 mg 02/21/19 00:39 02/23/19 04:04 Zofran Odt TL 4 mg Q6HR PRN Administration Nausea / Vomiting Polyethylene Glycol 17 gm 02/21/19 09:00 02/23/19 08:30 Miralax PO 17 gm DAILY CRISTIANO Administration Sodium Chloride 10 ml 02/21/19 00:39 02/23/19 21:05 Normal Saline Flush 0.9% IVP 10 ml PRN PRN Administration NEEDED PER PROVIDER ORDERS Sodium Chloride 10 ml 02/21/19 01:00 02/24/19 01:06 Normal Saline Flush 0.9% IVP 10 ml 0100,0900,1700 CRISTIANO Administration - Lab Result Fish Bone Diagrams: 02/24/19 04:40 02/24/19 04:40 - Additional Planning My Orders: My Active Orders 02/23/19 12:28 LORazepam INJ [Ativan Inj (Vial)] 2 mg IVP PRN PRN 02/24/19 04:00 LIPASE [CHEM] Routine 02/24/19 07:28 DIET [NPO except Meds] [DIET] 02/24/19 08:49 Potassium Chloride/Water 10 mEq/100 mL x 1 Potassium Chlor 10 Meq/100 ml [Potassium Chloride] 10 meq in 100 ml IV ONCE 02/24/19 09:00 ABDOMEN W/WO [CT] Routine Aspirin EC [Ecotrin] 81 mg PO DAILY Cholecalciferol (Vitamin D3) [Vitamin D3] 2,000 units ORAL DAILY Cyanocobalamin (Vitamin B-12) [Vitamin B-12] 1,000 mcg PO DAILY D5.9NS W/20 MEQ KCL @ 83.333 mls/hr D5ns W/20 Meq KCl 1,000 ml IV 83.333 mls/hr Finasteride [Proscar] 5 mg PO DAILY Mirabegron [Myrbetriq] 50 mg PO DAILY Phenytoin [Dilantin] 100 mg PO TID 02/25/19 05:00 BMP - BASIC METABOLIC PANEL [CHEM] DAILYLAB CBC - COMP BLD CT W/AUTO DIFF [HEME] DAILYLAB PHENYTOIN (DILANTIN) [CHEM] DAILYLAB 02/26/19 05:00 PHENYTOIN (DILANTIN) [CHEM] DAILYLAB Subjective - Subjective Patient Reports: Resting Comfortably Nursing Reports: Sedated Objective Vital Signs: Vital Signs - 24 hr 02/23/19 02/23/19 02/23/19 10:20 16:00 16:43 Temperature 36.8 C Heart Rate [ 53 L Brachial] Heart Rate [ 70 Supine] Respiratory 18 Rate Blood Pressure 168/71 H 157/64 H [Right Brachial artery] Blood Pressure 154/70 H [Supine] O2 Saturation 95 02/23/19 02/23/19 02/23/19 19:10 19:25 19:30 Temperature Heart Rate [ 57 L 54 L 58 L Brachial] Heart Rate [ Supine] Respiratory Rate Blood Pressure 180/79 H 187/73 H 158/79 H [Right Brachial artery] Blood Pressure [Supine] O2 Saturation 93 96 02/23/19 02/23/19 02/23/19 19:35 19:40 20:20 Temperature Heart Rate [ 57 L 55 L 54 L Brachial] Heart Rate [ Supine] Respiratory 20 Rate Blood Pressure 158/72 H 152/70 H 152/73 H [Right Brachial artery] Blood Pressure [Supine] O2 Saturation 93 92 96 02/24/19 02/24/19 02/24/19 00:00 00:46 01:04 Temperature 36.7 C Heart Rate [ 68 71 66 Brachial] Heart Rate [ Supine] Respiratory 18 Rate Blood Pressure 152/80 H 158/90 H 135/63 H [Right Brachial artery] Blood Pressure [Supine] O2 Saturation 95 02/24/19 02/24/19 02/24/19 01:16 01:17 01:32 Temperature Heart Rate [ 65 88 63 Brachial] Heart Rate [ Supine] Respiratory Rate Blood Pressure 161/80 H 179/95 H 161/86 H [Right Brachial artery] Blood Pressure [Supine] O2 Saturation 02/24/19 02/24/19 02/24/19 01:47 02:02 07:45 Temperature 36.9 C Heart Rate [ 57 L 58 L 56 L Brachial] Heart Rate [ Supine] Respiratory 20 Rate Blood Pressure 183/78 H 161/75 H 165/82 H [Right Brachial artery] Blood Pressure [Supine] O2 Saturation 96 Oxygen O2 Source Room air I&O (Last 24 Hrs): Intake and Output Totals x24h 02/22/19 02/23/19 02/24/19 23:59 23:59 23:59 Intake Total 3632.5 2275 911 Output Total 725 750 Balance 2907.5 1525 911 General: Other (Sleeping) HEENT: Mucous membr. moist/pink Neck: Supple, No JVD Neuro: Other (Sedated) Cardiovascular: Regular rate, No murmurs Respiratory: No respiratory distress Abdomen: Soft Extremities: No edema - Results Results: Laboratory Results WBC 10.3 x10^3/uL (4.8-10.8) 02/24/19 04:40 RBC 3.40 10^6/uL (4.70-6.10) L 02/24/19 04:40 Hgb 11.5 g/dL (14.0-18.0) L 02/24/19 04:40 Hct 34.0 % (42.0-52.0) L 02/24/19 04:40 MCV 100.1 fL (80.0-94.0) H 02/24/19 04:40 MCH 33.7 pg (27.0-31.0) H 02/24/19 04:40 MCHC 33.7 g/dL (32.0-36.0) 02/24/19 04:40 RDW 13.2 % (12.0-15.0) 02/24/19 04:40 Plt Count 168 10^3/uL (130-450) 02/24/19 04:40 MPV 11.2 fL (7.4-11.4) 02/24/19 04:40 Neut # (Auto) 8.3 10^3/uL (1.5-6.6) H 02/24/19 04:40 Lymph # (Auto) 0.9 10^3/uL (1.5-3.5) L 02/24/19 04:40 [place] # (Auto) 1.2 10^3/uL (0.0-1.0) H 02/24/19 04:40 Eos # (Auto) 0.0 10^3/uL (0.0-0.7) 02/24/19 04:40 Baso # (Auto) 0.0 10^3/uL (0.0-0.1) 02/24/19 04:40 Absolute Nucleated RBC 0.00 x10^3/uL 02/24/19 04:40 Nucleated RBC % 0.0 /100WBC 02/24/19 04:40 Sodium 133 mmol/L (135-145) L 02/24/19 04:40 Potassium 3.3 mmol/L (3.5-5.0) L 02/24/19 04:40 Chloride 100 mmol/L (101-111) L 02/24/19 04:40 Carbon Dioxide 25 mmol/L (21-32) 02/24/19 04:40 Anion Gap 8.0 (6-13) 02/24/19 04:40 BUN 15 mg/dL (6-20) 02/24/19 04:40 Creatinine 0.5 mg/dL (0.6-1.2) L 02/24/19 04:40 Estimated GFR (MDRD) 160 (>89) 02/24/19 04:40 Glucose 115 mg/dL (70-100) H 02/24/19 04:40 Calcium 9.1 mg/dL (8.5-10.3) 02/24/19 04:40 Total Bilirubin 0.8 mg/dL (0.2-1.0) 02/23/19 05:11 AST 32 IU/L (10-42) 02/23/19 05:11 ALT 17 IU/L (10-60) 02/23/19 05:11 Alkaline Phosphatase 40 IU/L (42-121) L 02/23/19 05:11 Total Protein 6.1 g/dL (6.7-8.2) L 02/23/19 05:11 Albumin 2.8 g/dL (3.2-5.5) L 02/23/19 05:11 Globulin 3.3 g/dL (2.1-4.2) 02/23/19 05:11 Albumin/Globulin Ratio 0.8 (1.0-2.2) L 02/23/19 05:11 Triglycerides 48 mg/dL (-149) 02/21/19 04:40 Cholesterol 115 mg/dL (-199) 02/21/19 04:40 LDL Cholesterol, Calc 72 mg/dL (-129) 02/21/19 04:40 VLDL Cholesterol 10 mg/dL 02/21/19 04:40 HDL Cholesterol 33 mg/dL (60-) L 02/21/19 04:40 LDL/HDL Ratio 2.2 (<3.6) 02/21/19 04:40 Cholesterol/HDL Ratio 3.5 (<5.0) 02/21/19 04:40 Amylase 115 U/L (28-100) H 02/20/19 22:35 Lipase 70 U/L (22-51) H 02/23/19 05:11 Vitamin B12 1287 pg/mL (180-914) H 02/23/19 05:11 Last Dose Date K 02/21/19 00:50 Last Dose Time [facility] 02/21/19 00:50 Phenytoin 7.7 ug/mL 02/24/19 04:40 Valproic Acid 112.2 ug/mL 02/21/19 00:50 Ethyl Alcohol < 5.0 mg/dL 02/21/19 00:50
[2019-02-24] MEDS: FAMOTIDINE 20 MG/2 ML VIAL IVP SCH (09:00)
[2019-02-24] MEDS: D5NS W/20 MEQ KCL 1,000 ML IV SCH (10:28)
[2019-02-24] MEDS: PHENYTOIN ER 100 MG CAPSULE PO SCH ×3 (10:48→21:10)
[2019-02-24] MEDS: CYANOCOBALAMIN 500 MCG TABLET PO SCH (10:57)
[2019-02-24] MEDS: NON FORMULARY MED (Mirabegron [Myrbetriq] 50 MG) PO SCH (10:57)
[2019-02-24] MEDS: CHOLECALCIFEROL 1,000 UNIT TABLET PO SCH (10:58)
[2019-02-24] MEDS: FINASTERIDE 5 MG TABLET PO SCH (10:58)
[2019-02-24] MEDS: ASPIRIN EC 81 MG TABLET PO SCH (10:58)
[2019-02-24] MEDS: POLYETHYLENE GLYCOL 3350 17 GM PACKET PO SCH (11:22)
--- NOTE | 2019-02-24 13:26 | CT Report ---
Reason: PANCREATITIS W/ PERSISTENT LUQ PAIN, PT UNABLE TO TOLLERATE MRCP. Procedure Date: 02/24/2019 Accession Number: [id number] / [id number] Procedure: CT - ABDOMEN W/WO CPT Code: FULL RESULT: EXAM: CT ABDOMEN WITHOUT AND WITH CONTRAST EXAM DATE: 02/24/2019 08:40 AM. HISTORY: Pancreatitis with persistent left upper quadrant pain. Patient unable to tolerate MRCP. COMPARISON: CT of the abdomen and pelvis from 02/20/2019, CT abdomen from 05/07/2018. TECHNIQUE: Initial noncontrast images obtained of the abdomen. Following administration of IV contrast: 100 Optiray 320, images obtained of the abdomen during the arterial and portal venous phases. Enteric contrast: No. Reconstruction: Coronal and sagittal. In accordance with CT protocol optimization, one or more of the following dose reduction techniques were utilized for this exam: automated exposure control, adjustment of mA and/or KV based on patient size, or use of iterative reconstructive technique. FINDINGS: There is mild respiratory motion. In addition, there is beam hardening artifact from the patient's arms. Lung Bases: There is small left and trace right pleural effusion with bibasilar atelectasis. Liver: Unremarkable. No focal lesions. Gallbladder/Bile Ducts: Gallbladder is surgically absent. Caliber of the bile ducts is within normal limits. Spleen: Absent. 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 Pancreas: There is mild peripancreatic stranding, compatible with known pancreatitis. The gland enhances fairly homogeneously without areas of necrosis. No loculated fluid collections are demonstrated. Adrenal Glands: No nodules. Kidneys: There is a 1.3 cm lesion in the anterior interpolar region of the right kidney (series 7, image 49) with equivocal enhancement. This appears similar to the recent prior examination but slightly increased from 1.0 cm on the 05/07/2010 examination. Subcentimeter hypoattenuating foci are present in both kidneys, too small to characterize. No nephrolithiasis or hydronephrosis. Peritoneal Cavity/Bowel: No evidence of bowel obstruction or inflammation in the visualized portions. There appears to be mesh in the anterior abdomen, compatible with previous hernia repair. No peritoneal free fluid or loculated collections are demonstrated. Vasculature: No abdominal aortic aneurysm. The celiac, superior mesenteric, and inferior mesenteric arteries are patent. 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 No pseudoaneurysm is demonstrated. Bones: No suspicious osseous lesion. Other: None. IMPRESSION: 1. Findings of acute interstitial edematous pancreatitis. No evidence of pancreatic necrosis. No acute pancreatic or peripancreatic fluid collections demonstrated. 2. Small left and trace right pleural effusions. 3. Lesion in the interpolar region of the right kidney demonstrates equivocal enhancement but appears slightly increased in size since 2018. Although potentially a complicated cyst, further evaluation with renal ultrasound is recommended to exclude hypoenhancing mass or cyst with concerning features. RADIA
[2019-02-24] MEDS: FAMOTIDINE 20 MG TABLET PO SCH (21:10)
[2019-02-25] MEDS: ACETAMINOPHEN 325 MG TABLET PO PRN ×4 (00:08→22:32)
[2019-02-25] MEDS: D5NS W/20 MEQ KCL 1,000 ML IV SCH ×3 (02:34→21:21)
[2019-02-25] MEDS: PHENYTOIN ER 100 MG CAPSULE PO SCH ×3 (05:41→21:20)
[2019-02-25] MEDS: SODIUM CHLORIDE FLUSH 0.9% 10 ML SYRINGE IVP SCH ×3 (05:41→16:32)
[2019-02-25 05:48] LABS: BASOPHILS % (AUTO) 0.3 %; EOSINOPHILS % (AUTO) 0.1 %; HGB - HEMOGLOBIN 11.5 g/dL (14.0-18.0); LYMPHOCYTES % (AUTO) 7.2 %; MEAN PLATELET VOLUME 10.5 fL (7.4-11.4); MONOCYTES # (AUTO) 2.1 10^3/uL (0.0-1.0); MONOCYTES % (AUTO) 14.7 %; NEUTROPHILS # (AUTO) 11.1 10^3/uL (1.5-6.6); NEUTROPHILS % (AUTO) 77.7 %; PLT - PLATELET COUNT 183 10^3/uL (130-450); RED BLOOD COUNT 3.39 10^6/uL (4.70-6.10); RED CELL DISTRIBUTION WIDTH 13.3 % (12.0-15.0); WHITE BLOOD COUNT 14.3 x10^3/uL (4.8-10.8)
[2019-02-25 05:54] LABS: CALCIUM 9.1 mg/dL (8.5-10.3); CREATININE 0.5 mg/dL (0.6-1.2)
[2019-02-25 06:16] LABS: DIFFERENTIAL COMMENT MANUAL=AUTO DIFF; PLATELET ESTIMATE, MANUAL NORMAL (130-450,000) (NORMAL); PLATELET MORPHOLOGY 1+ GIANT PLATELETS (NORMAL); RBC MORPHOLOGY (MULTIPLE) NORMAL APPEARANCE (NORMAL)
[2019-02-25] MEDS ORDERED: oxyCODONE ER 10 MG TABLET PO SCH ×2 (08:00→21:00)
[2019-02-25] MEDS: POLYETHYLENE GLYCOL 3350 17 GM PACKET PO SCH (09:49)
[2019-02-25] MEDS: FINASTERIDE 5 MG TABLET PO SCH (09:54)
[2019-02-25] MEDS: ASPIRIN EC 81 MG TABLET PO SCH (09:55)
[2019-02-25] MEDS: MULTIVITAMIN W/MINERALS TABLET PO SCH (09:57)
[2019-02-25] MEDS: FAMOTIDINE 20 MG TABLET PO SCH ×2 (09:58→21:20)
[2019-02-25] MEDS: CHOLECALCIFEROL 1,000 UNIT TABLET PO SCH (09:59)
[2019-02-25] MEDS: CYANOCOBALAMIN 500 MCG TABLET PO SCH (10:01)
--- NOTE | 2019-02-25 10:09 | Ultrasound Report ---
Reason: R renal cyst noted by CT, eval further Procedure Date: 02/25/2019 Accession Number: [id number] / [id number] Procedure: US - Abdomen Limited CPT Code: FULL RESULT: EXAM: ABDOMEN ULTRASOUND LIMITED, RUQ EXAM DATE: 02/25/2019 08:49 AM. CLINICAL HISTORY: R renal cyst noted by CT, eval further. COMPARISON: 02/24/2019. TECHNIQUE: Real-time scanning was performed with static images obtained. FINDINGS: Liver: Normal in size and echotexture. 11.9 cm. Main portal vein flow: Hepatopetal. Gallbladder: Post cholecystectomy Biliary System: CBD measures 5.3 mm. No intrahepatic or extrahepatic ductal dilatation. Right kidney: 11.4 cm. Mid pole cyst 1.2 x 1.1 x 0.8 cm. IMPRESSION: 1. Right kidney simple cyst 1.2 cm. RADIA
[2019-02-25] MEDS: ONDANSETRON ODT 4 MG TABLET TL PRN (10:31)
--- NOTE | 2019-02-25 13:25 | PROVIDER PROGRESS NOTE ---
Assessment/Plan - Problem List (1) Pancreatitis, acute Qualifiers: Pancreatitis type: unspecified pancreatitis type Acute pancreatitis complication: no infection or necrosis Qualified Code(s): K85.90 - Acute pancreatitis without necrosis or infection, unspecified Assessment/Plan: The lipase level is 56, unchanged from yesterday. His abdominal imaging yesterday showed continued acute pancreatitis changes but no complications. Today, having a BM helped decrease his mid-abdominal pain. Will continue with a low fat diet and remain off the Valproic acid, which likely indced the pancreatitis. (2) Akinetic seizures Assessment/Plan: The Dilantin level was 9, still subtherapeutic. He is more somnolent today then yesterday, however. I plan on calling [facility] Neurologist, Dr Billy Menchaca and discussing his mental status. (3) Lethargy Assessment/Plan: The describes that he is now at the baseline that he was progressing down to over the previous 2 weeks: He sleeps most of the time at home. The last neurology visit was in December and she described this lethargy to his Neurologist who stated that it could be from a combination of his prior brain hemorrhage, plus seizure meds and scheduled narcotic meds causing sedation. I asked why he was on scheduled MSContin bid; it was to treat generalized pain presumably from osteoarthritis. I will discuss the patient's current neurologic status with his Neurologist. If this is his new normal, and he now requires complete care (feeding, getting up to use the toilet, positioning, bathing), he will need NH placement for example. I was able to reach Dr. Billy Menchaca and reviewed the patient's current status with him. Dr. Menchaca recommends rechecking brain imaging for a stroke, obtaining an Ammonia level because valproic acid can increase Ammonia, even with normal LFTs, to change his Dilantin dosing to just at bedtime since it can be sedating and use a slightly higher dose (400 mg nightly) and if all those are negative then to start Sertraline 25 mg p.o. daily because the valproic acid also deplete serotonin and this patient may be depressed. The Head CT showed no acute stroke. His Dilantin evening dosing will need to be started tomorrow night, since he already received two doses of 100 mg today. The Ammonia level was 33 (normal is up to 35). I will decrease the scheduled MS Contin to half its amount. (4) Hyponatremia Assessment/Plan: This comes and goes, according to the record. At present he is not volume depleted, to need iv saline hydration. His lethargy could be worsened by this however. I will discuss with neurology. (5) Hypokalemia Assessment/Plan: Replace. Monitor BMP daily. 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 But he also may have underlying myelodysplastic syndrome. He is already followed by oncology and will be seeing them on a routine basis. No urgent visit needed. (7) HTN (hypertension) Assessment/Plan: BP control is fair, on his home meds. (8) Confusion Assessment/Plan: Resolved. When he is awake, he is not confused, but is forgetful. - Current Meds Current Meds: Current Medications Generic Name Dose Route Start Last Admin Trade Name Freq PRN Reason Stop Dose Admin Acetaminophen 650 mg 02/21/19 00:39 02/25/19 05:41 Tylenol PO 650 mg Q4HR PRN Administration Pain 1 to 4 Aspirin 81 mg 02/24/19 09:00 02/25/19 09:55 Ecotrin PO 81 mg DAILY CRISTIANO Administration Cholecalciferol 2,000 unit 02/24/19 09:00 02/25/19 09:59 Vitamin D3 PO 2,000 unit DAILY CRISTIANO Administration Cyanocobalamin 1,000 mcg 02/24/19 09:00 02/25/19 10:01 Vitamin B-12 PO 1,000 mcg DAILY CRISTIANO Administration Famotidine 20 mg 02/24/19 21:00 02/25/19 09:58 Pepcid PO 20 mg BID CRISTIANO Administration Finasteride 5 mg 02/24/19 09:00 02/25/19 09:54 Proscar PO 5 mg DAILY CRISTIANO Administration Potassium Chloride/Dextrose/Sod Cl 1,000 mls @ 83.333 mls/hr 02/24/19 09:00 02/25/19 02:34 IV 83.333 mls/hr .Q12H CRISTIANO Administration Lorazepam 2 mg 02/23/19 12:28 02/23/19 18:11 Ativan Inj (Vial) IVP 2 mg PRN PRN Administration PER PHYSICIAN ORDER Multivitamins/Minerals 1 tab 02/25/19 08:00 02/25/19 09:57 Theragran M PO 1 tab DAILYWM CRISTIANO Administration Non-Formulary Medication 50 mg 02/24/19 09:00 02/24/19 10:57 Mirabegron [Myrbetriq] PO Not Given DAILY CRISTIANO Ondansetron HCl 4 mg 02/21/19 00:39 02/25/19 10:31 Zofran Odt TL 4 mg Q6HR PRN Administration Nausea / Vomiting Phenytoin Sodium 100 mg 02/24/19 09:00 02/25/19 05:41 Dilantin PO 100 mg TID CRISTIANO Administration Polyethylene Glycol 17 gm 02/21/19 09:00 02/25/19 09:49 Miralax PO 17 gm DAILY CRISTIANO Administration Sodium Chloride 10 ml 02/21/19 00:39 02/23/19 21:05 Normal Saline Flush 0.9% IVP 10 ml PRN PRN Administration NEEDED PER PROVIDER ORDERS Sodium Chloride 10 ml 02/21/19 01:00 02/25/19 05:41 Normal Saline Flush 0.9% IVP 10 ml 0100,0900,1700 CRISTIANO Administration - Lab Result Fish Bone Diagrams: 02/25/19 05:37 02/25/19 05:37 - Additional Planning My Orders: My Active Orders 02/25/19 08:00 Multivitamin W/Minerals [Theragran M] 1 tab PO DAILYWM 02/25/19 12:00 Gi Cocktail 30 ml PO TID PRN 02/25/19 21:00 oxyCODONE ER [OxyCONTIN] 10 mg PO BID 02/26/19 05:00 PHENYTOIN (DILANTIN) [CHEM] DAILYLAB Subjective - Subjective Patient Reports: Feeling Better, Other (When awake, said he had "moderate" mid abdominal pain. Later had a large BM and said all his pain is gone.) Nursing Reports: Confused, Other (Lethargic, sleeps all day.) Objective Vital Signs: Vital Signs - 24 hr 02/24/19 02/24/19 02/25/19 16:00 23:54 08:00 Temperature 37.4 C 36.9 C 36.4 C L Heart Rate [ 80 72 62 Brachial] Respiratory 20 18 18 Rate Blood Pressure 154/68 H [Left Brachial artery] Blood Pressure 151/82 H 164/79 H [Right Brachial artery] O2 Saturation 94 97 96 Oxygen O2 Source Room air I&O (Last 24 Hrs): Intake and Output Totals x24h 02/23/19 02/24/19 02/25/19 23:59 23:59 23:59 Intake Total 2275 2631 150 Output Total 750 Balance 1525 2631 150 General: Other (Lethargic, awakens to name and answers appropriately, falls back asleep.) HEENT: Mucous membr. moist/pink Neck: Supple Neuro: Disoriented, Other (Lethargic) Cardiovascular: Regular rate Respiratory: No respiratory distress Abdomen: Normal bowel sounds, Soft, No tenderness Extremities: No edema - Results Results: Laboratory Results WBC 14.3 x10^3/uL (4.8-10.8) H 02/25/19 05:37 RBC 3.39 10^6/uL (4.70-6.10) L 02/25/19 05:37 Hgb 11.5 g/dL (14.0-18.0) L 02/25/19 05:37 Hct 33.9 % (42.0-52.0) L 02/25/19 05:37 MCV 100.0 fL (80.0-94.0) H 02/25/19 05:37 MCH 34.0 pg (27.0-31.0) H 02/25/19 05:37 MCHC 34.0 g/dL (32.0-36.0) 02/25/19 05:37 RDW 13.3 % (12.0-15.0) 02/25/19 05:37 Plt Count 183 10^3/uL (130-450) 02/25/19 05:37 MPV 10.5 fL (7.4-11.4) 02/25/19 05:37 Neut # (Auto) 11.1 10^3/uL (1.5-6.6) H 02/25/19 05:37 Lymph # (Auto) 1.0 10^3/uL (1.5-3.5) L 02/25/19 05:37 [place] # (Auto) 2.1 10^3/uL (0.0-1.0) H 02/25/19 05:37 Eos # (Auto) 0.0 10^3/uL (0.0-0.7) 02/25/19 05:37 Baso # (Auto) 0.0 10^3/uL (0.0-0.1) 02/25/19 05:37 Absolute Nucleated RBC 0.01 x10^3/uL 02/25/19 05:37 Band Neuts % (Manual) Not Reportable 02/25/19 05:37 Abnorm Lymph % (Manual) Not Reportable 02/25/19 05:37 Nucleated RBC % 0.0 /100WBC 02/25/19 05:37 Neutrophils # (Manual) Not Reportable 02/25/19 05:37 Lymphocytes # (Manual) Not Reportable 02/25/19 05:37 Monocytes # (Manual) Not Reportable 02/25/19 05:37 Eosinophils # (Manual) Not Reportable 02/25/19 05:37 Basophils # (Manual) Not Reportable 02/25/19 05:37 Differential Comment MANUAL=AUTO DIFF 02/25/19 05:37 Platelet Estimate NORMAL (130-450,000) (NORMAL) 02/25/19 05:37 Platelet Morphology 1+ GIANT PLATELETS (NORMAL) 02/25/19 05:37 RBC Morph Micro Appear NORMAL APPEARANCE (NORMAL) 02/25/19 05:37 Sodium 132 mmol/L (135-145) L 02/25/19 05:37 Potassium 3.4 mmol/L (3.5-5.0) L 02/25/19 05:37 Chloride 100 mmol/L (101-111) L 02/25/19 05:37 Carbon Dioxide 24 mmol/L (21-32) 02/25/19 05:37 Anion Gap 8.0 (6-13) 02/25/19 05:37 BUN 14 mg/dL (6-20) 02/25/19 05:37 Creatinine 0.5 mg/dL (0.6-1.2) L 02/25/19 05:37 Estimated GFR (MDRD) 160 (>89) 02/25/19 05:37 Glucose 134 mg/dL (70-100) H 02/25/19 05:37 Calcium 9.1 mg/dL (8.5-10.3) 02/25/19 05:37 Total Bilirubin 0.8 mg/dL (0.2-1.0) 02/23/19 05:11 AST 32 IU/L (10-42) 02/23/19 05:11 ALT 17 IU/L (10-60) 02/23/19 05:11 Alkaline Phosphatase 40 IU/L (42-121) L 02/23/19 05:11 Total Protein 6.1 g/dL (6.7-8.2) L 02/23/19 05:11 Albumin 2.8 g/dL (3.2-5.5) L 02/23/19 05:11 Globulin 3.3 g/dL (2.1-4.2) 02/23/19 05:11 Albumin/Globulin Ratio 0.8 (1.0-2.2) L 02/23/19 05:11 Triglycerides 48 mg/dL (-149) 02/21/19 04:40 Cholesterol 115 mg/dL (-199) 02/21/19 04:40 LDL Cholesterol, Calc 72 mg/dL (-129) 02/21/19 04:40 VLDL Cholesterol 10 mg/dL 02/21/19 04:40 HDL Cholesterol 33 mg/dL (60-) L 02/21/19 04:40 LDL/HDL Ratio 2.2 (<3.6) 02/21/19 04:40 Cholesterol/HDL Ratio 3.5 (<5.0) 02/21/19 04:40 Amylase 115 U/L (28-100) H 02/20/19 22:35 Lipase 56 U/L (22-51) H 02/25/19 04:28 Vitamin B12 1287 pg/mL (180-914) H 02/23/19 05:11 RBC Folic Acid 673 ng/mL RBC (>280) 02/23/19 05:11 Last Dose Date K 02/21/19 00:50 Last Dose Time K 02/21/19 00:50 Phenytoin 9.0 ug/mL 02/25/19 05:37 Valproic Acid 112.2 ug/mL 02/21/19 00:50 Ethyl Alcohol < 5.0 mg/dL 02/21/19 00:50
[2019-02-25] MEDS: NON FORMULARY MED (Mirabegron [Myrbetriq] 50 MG) PO SCH (14:14)
[2019-02-25] MEDS: GI COCKTAIL 120 ML BOTTLE PO PRN ×2 (14:20→22:33)
--- NOTE | 2019-02-25 14:24 | CT Report ---
Reason: Lethargy, eval for new CVA Procedure Date: 02/25/2019 Accession Number: [id number] / [id number] Procedure: CT - Head W/O Stroke Protocol CPT Code: FULL RESULT: EXAM: CT HEAD EXAM DATE: 02/25/2019 02:09 PM. CLINICAL HISTORY: Lethargy, eval for new CVA. COMPARISON: HEAD W/O 07/24/2017 1:34 PM. TECHNIQUE: Multiaxial CT images were obtained from the foramen magnum to the vertex. Reformats: Sagittal and coronal. IV contrast: None. In accordance with CT protocol optimization, one or more of the following dose reduction techniques were utilized for this exam: automated exposure control, adjustment of mA and/or KV based on patient size, or use of iterative reconstructive technique. FINDINGS: Parenchyma: No intraparenchymal hemorrhage. No evidence of mass, midline shift, or CT findings of acute infarction. Small-white differentiation is distinct. Diffuse chronic microangiopathic white matter changes. Extraaxial Spaces: Normal for age. No subdural or epidural collections. Ventricles: The ventricles and cortical sulci are enlarged, consistent with age-related tissue loss. Sinuses and orbits: Imaged paranasal sinuses, orbits, and mastoids show no significant abnormality. Bones: Unremarkable. Other: None. IMPRESSION: Generalized age-related cortical atrophic changes without evidence of acute intracranial abnormality. RADIA The critical test notification system was initiated by Dr. Jimbo Wilson at 02:17 PM on 02/25/2019. The above critical test findings were discussed with Chloe Mancini by Dr. Jimbo Wilson at 02:22 PM on 02/25/2019.
[2019-02-25] MEDS ORDERED: PREGABALIN 100 MG CAPSULE PO SCH (21:00)
[2019-02-26] MEDS: SODIUM CHLORIDE FLUSH 0.9% 10 ML SYRINGE IVP SCH ×3 (01:00→15:56)
[2019-02-26] MEDS: D5NS W/20 MEQ KCL 1,000 ML IV SCH ×2 (03:50→10:47)
[2019-02-26] MEDS: GI COCKTAIL 120 ML BOTTLE PO PRN (03:56)
[2019-02-26] MEDS: ACETAMINOPHEN 325 MG TABLET PO PRN (03:56)
[2019-02-26 08:51] LABS: BASOPHILS % (AUTO) 0.3 %; EOSINOPHILS % (AUTO) 0.5 %; HGB - HEMOGLOBIN 10.8 g/dL (14.0-18.0); LYMPHOCYTES # (AUTO) 1.1 10^3/uL (1.5-3.5); LYMPHOCYTES % (AUTO) 13.2 %; MEAN CORPUSCULAR HEMOGLOBIN 34.3 pg (27.0-31.0); MEAN CORPUSCULAR VOLUME 100.9 fL (80.0-94.0); MEAN PLATELET VOLUME 11.3 fL (7.4-11.4); MONOCYTES # (AUTO) 1.3 10^3/uL (0.0-1.0); MONOCYTES % (AUTO) 15.9 %; NEUTROPHILS % (AUTO) 70.1 %; PLT - PLATELET COUNT 191 10^3/uL (130-450); RED BLOOD COUNT 3.16 10^6/uL (4.70-6.10); RED CELL DISTRIBUTION WIDTH 13.3 % (12.0-15.0); WHITE BLOOD COUNT 8.5 x10^3/uL (4.8-10.8)
[2019-02-26 09:13] LABS: CALCIUM 8.6 mg/dL (8.5-10.3); CREATININE 0.6 mg/dL (0.6-1.2)
[2019-02-26] MEDS: POLYETHYLENE GLYCOL 3350 17 GM PACKET PO SCH (10:44)
[2019-02-26] MEDS: NON FORMULARY MED (Mirabegron [Myrbetriq] 50 MG) PO SCH (10:44)
[2019-02-26] MEDS: CHOLECALCIFEROL 1,000 UNIT TABLET PO SCH (10:44)
[2019-02-26] MEDS: ASPIRIN EC 81 MG TABLET PO SCH (10:45)
[2019-02-26] MEDS: FINASTERIDE 5 MG TABLET PO SCH (10:45)
[2019-02-26] MEDS: CYANOCOBALAMIN 500 MCG TABLET PO SCH (10:45)
[2019-02-26] MEDS: FAMOTIDINE 20 MG TABLET PO SCH ×2 (10:46→20:25)
[2019-02-26] MEDS: MULTIVITAMIN W/MINERALS TABLET PO SCH (10:46)
--- NOTE | 2019-02-26 12:25 | PROVIDER PROGRESS NOTE ---
Assessment/Plan - Problem List (1) Pancreatitis, acute Qualifiers: Pancreatitis type: unspecified pancreatitis type Acute pancreatitis complication: no infection or necrosis Qualified Code(s): K85.90 - Acute pancreatitis without necrosis or infection, unspecified Assessment/Plan: Lipase decreased today further 56>>50 No c/o abdominal pain today. Yesterday, after a large BM, his c/o abd pain resolved. Continue a low fat solid diet. (2) Akinetic seizures Assessment/Plan: Dilantin level 9.5. We are shooting for 10. His Dilantin dose was changed to be taken all as one dose of 400 mg at hs, as per the recommendations of Dr Menchaca, when I spoke to him yesterday. Check Dilantin in a.m. tomorrow, before expected Dch tomorrow. (3) Lethargy Assessment/Plan: He is not as lethargic today as he has been for the last 2-3 days. This is after stopping the spread out Dilantin dosing t.i.d., and decreasing the scheduled Codeine dose. He still has poor memory (stated today that he has not slept, was reminded by me and his that he has been MOSTLY sleeping for 2 days), but answers appropriately and in longer sentences. The Dilantin will be dosed at h.s. and the MS Contin will be dosed only at h.s. as of today. The worries that he may be too sedated to get up to urinate at night. We will have to assess his level of sedation with these new dosings planned. He was able to participate with PT today, being more alert, needed a walker, and is still in need of rehab for PT at a SNF. I expect Dch tomorrow and informed SW. The patient was accepted at [facility]. (4) Hyponatremia Assessment/Plan: Improved minimally, after getting iv saline for 2 days, while he was too somnolent to adequately hydrate and eat. His low sodium comes and goes, according to old records. Monitor BMP daily. (5) Anemia, macrocytic Assessment/Plan: Stable. He has a Hx of ITP and needs outpt F/U (6) HTN (hypertension) Assessment/Plan: Controlled on po meds. (7) Confusion Assessment/Plan: Resolved. His mentation, with cognitive impairment, is about at its baseline, per . (8) Hypokalemia Assessment/Plan: Resolved with replacement. Monitor BMP daily. - Current Meds Current Meds: Current Medications Generic Name Dose Route Start Last Admin Trade Name Freq PRN Reason Stop Dose Admin Acetaminophen 650 mg 02/21/19 00:39 02/26/19 03:56 Tylenol PO 650 mg Q4HR PRN Administration Pain 1 to 4 Aspirin 81 mg 02/24/19 09:00 02/26/19 10:45 Ecotrin PO 81 mg DAILY CRISTIANO Administration Cholecalciferol 2,000 unit 02/24/19 09:00 02/26/19 10:44 Vitamin D3 PO 2,000 unit DAILY CRISTIANO Administration Cyanocobalamin 1,000 mcg 02/24/19 09:00 02/26/19 10:45 Vitamin B-12 PO 1,000 mcg DAILY CRISTIANO Administration Famotidine 20 mg 02/24/19 21:00 02/26/19 10:46 Pepcid PO 20 mg BID CRISTIANO Administration Finasteride 5 mg 02/24/19 09:00 02/26/19 10:45 Proscar PO 5 mg DAILY CRISTIANO Administration Potassium Chloride/Dextrose/Sod Cl 1,000 mls @ 30 mls/hr 02/26/19 09:19 02/26/19 10:47 IV 30 mls/hr .[id number] CRISTIANO Administration TKO Multivitamins/Minerals 1 tab 02/25/19 08:00 02/26/19 10:46 Theragran M PO 1 tab DAILYWM CRISTIANO Administration Non-Formulary Medication 50 mg 02/24/19 09:00 02/26/19 10:44 Mirabegron [Myrbetriq] PO 50 mg DAILY CRISTIANO Administration Polyethylene Glycol 17 gm 02/21/19 09:00 02/26/19 10:44 Miralax PO 17 gm DAILY CRISTIANO Administration Sodium Chloride 10 ml 02/21/19 00:39 02/23/19 21:05 Normal Saline Flush 0.9% IVP 10 ml PRN PRN Administration NEEDED PER PROVIDER ORDERS Sodium Chloride 10 ml 02/21/19 01:00 02/26/19 10:47 Normal Saline Flush 0.9% IVP Not Given 0100,0900,1700 CRISTIANO - Lab Result Fish Bone Diagrams: 02/26/19 05:20 02/26/19 05:20 - Additional Planning My Orders: My Active Orders 02/26/19 09:19 D5ns W/20 Meq KCl 1,000 ml IV TKO 02/26/19 21:00 Phenytoin [Dilantin] 400 mg PO 2100 oxyCODONE ER [OxyCONTIN] 10 mg PO QPM 02/26/19 Lunch DIET [Soft Mechanical Diet] [DIET] 02/27/19 05:00 CBC - COMP BLD CT W/AUTO DIFF [HEME] DAILYLAB CMP [COMPREHENSIVE METABOLIC PANEL] [CHEM] DAILYLAB LIPASE [CHEM] DAILYLAB MAGNESIUM [CHEM] DAILYLAB 02/27/19 09:00 Sertraline [Zoloft] 25 mg PO DAILY Subjective - Subjective Patient Reports: Feeling Better, No Complaints Nursing Reports: Other (Awake, fed himself) Objective Vital Signs: Vital Signs - 24 hr 02/25/19 02/26/19 02/26/19 16:00 00:24 08:00 Temperature 36.5 C 36.5 C 36.5 C Heart Rate [ 64 66 56 L Brachial] Respiratory 18 17 16 Rate Blood Pressure 150/80 H 169/75 H 166/77 H [Right Brachial artery] O2 Saturation 96 97 96 Oxygen O2 Source Room air I&O (Last 24 Hrs): Intake and Output Totals x24h 02/24/19 02/25/19 02/26/19 23:59 23:59 23:59 Intake Total 2631 2071.383 1249.724 Output Total 200 301 Balance 2631 1871.383 948.724 General: Alert HEENT: Mucous membr. moist/pink, Other (Not as [place] as the last few days) Neck: Supple, No JVD Neuro: Disoriented, Other (Fine tremor of hands and arms) Cardiovascular: Regular rate, No murmurs Respiratory: No respiratory distress, Breath sounds nml Abdomen: Normal bowel sounds, Soft, No tenderness Extremities: No edema - Results Results: Laboratory Results WBC 8.5 x10^3/uL (4.8-10.8) 02/26/19 05:20 RBC 3.16 10^6/uL (4.70-6.10) L 02/26/19 05:20 Hgb 10.8 g/dL (14.0-18.0) L 02/26/19 05:20 Hct 31.8 % (42.0-52.0) L 02/26/19 05:20 MCV 100.9 fL (80.0-94.0) H 02/26/19 05:20 MCH 34.3 pg (27.0-31.0) H 02/26/19 05:20 MCHC 34.0 g/dL (32.0-36.0) 02/26/19 05:20 RDW 13.3 % (12.0-15.0) 02/26/19 05:20 Plt Count 191 10^3/uL (130-450) 02/26/19 05:20 MPV 11.3 fL (7.4-11.4) 02/26/19 05:20 Neut # (Auto) 6.0 10^3/uL (1.5-6.6) 02/26/19 05:20 Lymph # (Auto) 1.1 10^3/uL (1.5-3.5) L 02/26/19 05:20 [place] # (Auto) 1.3 10^3/uL (0.0-1.0) H 02/26/19 05:20 Eos # (Auto) 0.0 10^3/uL (0.0-0.7) 02/26/19 05:20 Baso # (Auto) 0.0 10^3/uL (0.0-0.1) 02/26/19 05:20 Absolute Nucleated RBC 0.00 x10^3/uL 02/26/19 05:20 Band Neuts % (Manual) Not Reportable 02/25/19 05:37 Abnorm Lymph % (Manual) Not Reportable 02/25/19 05:37 Nucleated RBC % 0.0 /100WBC 02/26/19 05:20 Neutrophils # (Manual) Not Reportable 02/25/19 05:37 Lymphocytes # (Manual) Not Reportable 02/25/19 05:37 Monocytes # (Manual) Not Reportable 02/25/19 05:37 Eosinophils # (Manual) Not Reportable 02/25/19 05:37 Basophils # (Manual) Not Reportable 02/25/19 05:37 Differential Comment MANUAL=AUTO DIFF 02/25/19 05:37 Platelet Estimate NORMAL (130-450,000) (NORMAL) 02/25/19 05:37 Platelet Morphology 1+ GIANT PLATELETS (NORMAL) 02/25/19 05:37 RBC Morph Micro Appear NORMAL APPEARANCE (NORMAL) 02/25/19 05:37 Sodium 133 mmol/L (135-145) L 02/26/19 05:20 Potassium 3.5 mmol/L (3.5-5.0) 02/26/19 05:20 Chloride 103 mmol/L (101-111) 02/26/19 05:20 Carbon Dioxide 23 mmol/L (21-32) 02/26/19 05:20 Anion Gap 7.0 (6-13) 02/26/19 05:20 BUN 15 mg/dL (6-20) 02/26/19 05:20 Creatinine 0.6 mg/dL (0.6-1.2) 02/26/19 05:20 Estimated GFR (MDRD) 130 (>89) 02/26/19 05:20 Glucose 124 mg/dL (70-100) H 02/26/19 05:20 Calcium 8.6 mg/dL (8.5-10.3) 02/26/19 05:20 Total Bilirubin 0.8 mg/dL (0.2-1.0) 02/23/19 05:11 AST 32 IU/L (10-42) 02/23/19 05:11 ALT 17 IU/L (10-60) 02/23/19 05:11 Alkaline Phosphatase 40 IU/L (42-121) L 02/23/19 05:11 Ammonia 33.6 umol/L (7-35) 02/25/19 13:57 Total Protein 6.1 g/dL (6.7-8.2) L 02/23/19 05:11 Albumin 2.8 g/dL (3.2-5.5) L 02/23/19 05:11 Globulin 3.3 g/dL (2.1-4.2) 02/23/19 05:11 Albumin/Globulin Ratio 0.8 (1.0-2.2) L 02/23/19 05:11 Triglycerides 48 mg/dL (-149) 02/21/19 04:40 Cholesterol 115 mg/dL (-199) 02/21/19 04:40 LDL Cholesterol, Calc 72 mg/dL (-129) 02/21/19 04:40 VLDL Cholesterol 10 mg/dL 02/21/19 04:40 HDL Cholesterol 33 mg/dL (60-) L 02/21/19 04:40 LDL/HDL Ratio 2.2 (<3.6) 02/21/19 04:40 Cholesterol/HDL Ratio 3.5 (<5.0) 02/21/19 04:40 Amylase 115 U/L (28-100) H 02/20/19 22:35 Lipase 50 U/L (22-51) 02/26/19 05:20 Vitamin B12 1287 pg/mL (180-914) H 02/23/19 05:11 RBC Folic Acid 673 ng/mL RBC (>280) 02/23/19 05:11 Last Dose Date K 02/21/19 00:50 Last Dose Time [facility] 02/21/19 00:50 Phenytoin 9.5 ug/mL 02/26/19 05:20 Valproic Acid 112.2 ug/mL 02/21/19 00:50 Ethyl Alcohol < 5.0 mg/dL 02/21/19 00:50
[2019-02-26] MEDS ORDERED: oxyCODONE ER 10 MG TABLET PO SCH (21:00)
[2019-02-26] MEDS ORDERED: PHENYTOIN ER 100 MG CAPSULE PO SCH (21:00)
[2019-02-27] MEDS: D5NS W/20 MEQ KCL 1,000 ML IV SCH (03:09)
[2019-02-27 06:04] LABS: BASOPHILS # (AUTO) 0.1 10^3/uL (0.0-0.1); BASOPHILS % (AUTO) 0.8 %; EOSINOPHILS # (AUTO) 0.1 10^3/uL (0.0-0.7); HGB - HEMOGLOBIN 11.3 g/dL (14.0-18.0); LYMPHOCYTES # (AUTO) 1.3 10^3/uL (1.5-3.5); LYMPHOCYTES % (AUTO) 13.9 %; MEAN CORPUSCULAR HEMOGLOBIN 34.3 pg (27.0-31.0); MEAN CORPUSCULAR HGB CONC 33.8 g/dL (32.0-36.0); MEAN CORPUSCULAR VOLUME 101.7 fL (80.0-94.0); MEAN PLATELET VOLUME 10.4 fL (7.4-11.4); MONOCYTES # (AUTO) 1.1 10^3/uL (0.0-1.0); MONOCYTES % (AUTO) 11.2 %; NEUTROPHILS # (AUTO) 6.8 10^3/uL (1.5-6.6); NEUTROPHILS % (AUTO) 73.1 %; PLT - PLATELET COUNT 251 10^3/uL (130-450); RED BLOOD COUNT 3.29 10^6/uL (4.70-6.10); RED CELL DISTRIBUTION WIDTH 13.7 % (12.0-15.0); WHITE BLOOD COUNT 9.4 x10^3/uL (4.8-10.8)
[2019-02-27 06:11] LABS: ALBUMIN 2.7 g/dL (3.2-5.5); ALBUMIN/GLOBULIN RATIO 0.8 (1.0-2.2); BILIRUBIN,TOTAL 0.8 mg/dL (0.2-1.0); CALCIUM 9.2 mg/dL (8.5-10.3); CREATININE 0.6 mg/dL (0.6-1.2); MAGNESIUM 1.9 mg/dL (1.7-2.8); PHENYTOIN (DILANTIN) 9.2 ug/mL; TOTAL PROTEIN 6.2 g/dL (6.7-8.2)
[2019-02-27] MEDS: POLYETHYLENE GLYCOL 3350 17 GM PACKET PO SCH (08:05)
[2019-02-27] MEDS: NON FORMULARY MED (Mirabegron [Myrbetriq] 50 MG) PO SCH (08:06)
[2019-02-27] MEDS: CHOLECALCIFEROL 1,000 UNIT TABLET PO SCH (08:07)
[2019-02-27] MEDS: FAMOTIDINE 20 MG TABLET PO SCH (08:08)
[2019-02-27] MEDS: CYANOCOBALAMIN 500 MCG TABLET PO SCH (08:08)
[2019-02-27] MEDS: FINASTERIDE 5 MG TABLET PO SCH (08:08)
[2019-02-27 08:09] VITALS: BP 150/79
[2019-02-27] MEDS: ASPIRIN EC 81 MG TABLET PO SCH (08:09)
[2019-02-27] MEDS: MULTIVITAMIN W/MINERALS TABLET PO SCH (08:09)
[2019-02-27] MEDS: SODIUM CHLORIDE FLUSH 0.9% 10 ML SYRINGE IVP SCH ×2 (08:11→08:14)
[2019-02-27] MEDS ORDERED: oxyCODONE ER 40 MG TABLET PO SCH (09:00)
[2019-02-27] MEDS ORDERED: SERTRALINE 25 MG TABLET PO SCH (09:00)
--- NOTE | 2019-02-27 11:16 | Discharge Plan ---
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 Notify PCP of admission and forward orders to primary provider for signature. Weight on admission and: Weekly Call PCP immediately if weight increases by: 5 kg Other Notification Orders: Call PCP immediately if patient develops dyspnea, chest pain/tightness or edema. House Bowel Program: Yes Additional Bowel Program Orders: If no BM after 2 days, nurse may give M.O.M. 30ml PO PRN and/or ducolax Supp 1 WA and/or KARLI 250mg P.O., and/or senna 1-2 tabs PO. On day 3 nurse may give repeat above order until residents constipation is resolved. Annual Influenza Vaccine (between Jun 06 and January 03): Yes Two-step PPD per [facility] [phone] or approved exception documents: Yes Treatments & Other Orders: Daily PT and OT Oxygen Orders: None Lab Tests or X-ray Orders: morning Dilantin level on Mondays and Fridays Medication Orders: PLEASE REFER TO THE DISCHARGE MEDICATION LIST. Insulin Orders?: No - Medications New Prescriptions: Famotidine [Pepcid] 20 mg PO DAILY #30 tablet oxyCODONE ER [OxyCONTIN] 10 mg ORAL QPM #30 tablet Phenytoin [Dilantin] 400 mg PO 2100 #120 capsule Sertraline [Zoloft] 25 mg PO DAILY #30 tablet - Diet Type: No added salt Texture: Regular Liquids: Thin May have monthly special meal: Yes - Therapies | Activity Therapy: Evaluation | Treat if indicated: PT, OT Rehabilitation Potential: Maximize functional status Activity: Activity as Tolerated Assistance Devices: Walker"
--- NOTE | 2019-03-03 16:03 | DISCHARGE SUMMARY ---
Physician: Chloe Mancini MD DATE OF ADMISSION: 02/21/2019 DATE OF DISCHARGE: 02/27/2019 HISTORY OF PRESENT ILLNESS: This is a 78-year-old white male with a history of ITP, status post splenectomy and Rituxan and now in remission for several years, history of intracranial hemorrhage and subsequently akinetic seizures and neurocognitive impairment, history of prostate cancer with TURP, and history of pancreatitis in 09/2018 with lipase of 810. Patient presented with recurrence of abdominal pain and mildly elevated Lipase level. ER workup with a CT of the abdomen and pelvis done showed peripancreatic fat, which was consistent with either chronic pancreatitis or acute recurrent pancreatitis, no signs of pseudocyst, fluid collection, or masses, and he is status post splenectomy and cholecystectomy. 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 He was admitted for uncontrolled abdominal pain, placed in n.p.o. status with IV fluids, bowel rest, and planned discontinuation of Lyrica and/or Depakote, which may have been causing the recurrent pancreatitis. HOSPITAL COURSE AND DISCHARGE DIAGNOSES 1. Pancreatitis, due to medications. His Dilantin and Lyrica were discontinued, at the advice of Dr Menchaca, his Neurologist. The admission lipase was mildly elevated at 171 and decreased steadily throughout his course. His diet was very slowly advanced to clear liquids and then eventually a soft mechanical diet. Repeat abdominal imaging was done when he had persistent abdominal pain at mid hospitalization despite nearly normal lipase levels. Patient did not tolerate an MRI because of his neurocognitive problems, 3 attempts were made even with sedation. He therefore had repeat CT scanning, and this showed no new problems. Of note was that on the second to last day, when he had large normal bowel movement, his abdominal pain entirely dissipated. 2. 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 The Hospitalists were in contact with his Neurologist, and decision was made to stop the Depakote and Lyrica, as it was probably the cause of the pancreatitis, and to initiate Dilantin in its place. Patient received IV Dilantin load and then was put on 100 mg t.i.d. This may have led to excessive sedation and lethargy, and we reached Dr. Menchaca again, who advised that the Dilantin dose be given as 400 mg at bedtime. With this dosing, his mentation improved, and he was discharged with that dose. 3. 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 Patient has an obvious impairment with disorientation which was worsened at mid hospitalization from sedation. That resolved and he was able to be more lucid, returned back to his usual baseline, was evaluated by Physical Therapy and was cooperative and advised to have PT and OT rehabilitation at SNF. He was discharged to [facility] with that plan. 4. Lethargy, due to medications. Despite the improving pancreatitis, and with no signs of infection found (he had no fever or elevation of white count), he became severely obtunded in mid hospital course, needed to be fed. CT of the brain was done then that showed chronic changes but no acute findings. This was when the repeat call to Dr. Menchaca went out, who advised the change of Dilantin to bedtime dosing. Also his MS Contin, which was dosed on a schedule b.i.d., was titrated down and then only given at bedtime, since it was being used for arthritic pain. With those changes his mentation and alertness improved and he was able to communicate, feed himself, and participate in physical therapy. 5. Arthritic pain. Patient has joint and back pain and apparently had been getting MS Contin 20 mg b.i.d. for this on a scheduled basis. With rapid titration down, only at bedtime dosing, his pain was still controlled. 6. Hypertension. Patient was on his home blood pressure medications while here. 7. Hyponatremia. This was felt to be due to inadequate intake, but also there is a history of hyponatremia that "comes and goes." He ran chronic serum sodium levels between 132 and 134. 8. Hypokalemia. This was also felt to be due to inadequate intake and required IV and p.o. replacement. 9. LUTS (lower urinary tract syndrome) in male. The patient had an indwelling Gomez catheter. The described that he required Myrbetriq and other urology medications or would have frequent urination, especially nocturnally. The Gomez catheter was discontinued when he was more awake and his urologic medications were continued while he was here. He needs Urology followup. 10. Anemia, macrocytic. This was presumed to be due to the myelodysplastic syndrome that can accompany ITP. The patient does have Oncology followup planned. 11. History of prostate cancer, status post TURP. I advised that patient to have Urology followup because of the LUTS. 12. History of idiopathic thrombocytopenic purpura. Patient is status post splenectomy and remote Retuxin treatment and is now in remission with stable, normal platelet counts. LABS AND IMAGING: Reviewed and summarized above. ALLERGIES 1. AMITRIPTYLINE. 2. HEPARIN COMPOUNDS. MEDICATIONS AT TIME OF DISCHARGE 1. Aspirin 81 mg daily. 2. Vitamin D3 at 2000 units daily. 3. Vitamin B12 at 1000 mcg daily. 4. Finasteride 5 mg daily. 5. L-carnitine 250 mg b.i.d. 6. Myrbetriq 50 mg daily. 7. MiraLax 17 gram packet daily. 9. Ocuvite 1 tablet daily. 10. Pepcid 20 mg daily. 11. Ativan 0.5 mg p.r.n. anxiety. 12. Oxycontin decreased from 20 mg b.i.d down to 10 mg at bedtime only. 13. Dilantin 400 mg at bedtime. 14. Sertraline 25 mg daily. CONDITION AT DISCHARGE: Stable. PHYSICAL EXAMINATION VITAL SIGNS: Blood pressure 150/80, heart rate 63, normal sinus rhythm, afebrile, room air saturation 97%. HEENT: Moist oral mucosa. NECK: Without JVD or carotid bruits. CHEST: Clear. HEART: Heart sounds normal. ABDOMEN: Soft, nontender. No organomegaly. Normal bowel sounds. EXTREMITIES: No edema. NEUROLOGIC: Fine resting tremor and intentional tremor of his upper extremities. He has disorientation consistent with his impaired cognitive functioning. FOLLOWUP: After rehab at SNF, followup with his PCP and other specialists is advised within several weeks. CODE STATUS: DNR. Time required to complete entire discharge, SNF orders, discussion with the , chart review, dictation: 60 minutes. cc: MD Billy Chacko MD Nancy Sharma, MD TD: 03/03/2019 13:59 MTDD
== END 2019-02-27 14:30 | DRG 439 ==
LOC: ED 21:53 → MS2 02-21 00:39 → MS3 02-22 23:59 → UNDODISIN 02-27 14:30
PROVIDERS: ADMIT Family Medicine; ATTEND Internal Medicine
DX: K85.90 Acute pancreatitis without necrosis or infection, unspecified (principal); K85.30 Drug induced acute pancreatitis without necrosis or infection; D69.3 Immune thrombocytopenic purpura; E87.1 Hypo-osmolality and hyponatremia; T42.6X5A Adverse effect of other antiepileptic and sedative-hypnotic drugs, initial encounter; T40.2X5A Adverse effect of other opioids, initial encounter; Y92.019 Unspecified place in single-family (private) house as the place of occurrence of the external cause; R53.83 Other fatigue; I10 Essential (primary) hypertension; E87.6 Hypokalemia; E86.0 Dehydration; N40.1 Benign prostatic hyperplasia with lower urinary tract symptoms; R35.0 Frequency of micturition; R35.1 Nocturia; D46.9 Myelodysplastic syndrome, unspecified; K21.9 Gastro-esophageal reflux disease without esophagitis; I69.218 Other symptoms and signs involving cognitive functions following other nontraumatic intracranial hemorrhage; G40.409 Other generalized epilepsy and epileptic syndromes, not intractable, without status epilepticus; F41.9 Anxiety disorder, unspecified; M19.90 Unspecified osteoarthritis, unspecified site; L40.9 Psoriasis, unspecified; Z66 Do not resuscitate; Z79.82 Long term (current) use of aspirin; Z79.891 Long term (current) use of opiate analgesic; Z79.899 Other long term (current) drug therapy; Z90.49 Acquired absence of other specified parts of digestive tract; Z87.442 Personal history of urinary calculi; Z85.46 Personal history of malignant neoplasm of prostate; Z90.79 Acquired absence of other genital organ(s); Z87.19 Personal history of other diseases of the digestive system
CPT/HCPCS: 36415; 70450; 74170; 74177; 76705; 80048; 80053; 80061; 80164; 80185; 81003; 82140; 82150; 82607; 82747; 83690; 83735; 84100; 85025; 96361; 96374; 97116; 97161; 97530; 99283; 99284; A9270; J2060; J2270; J7120; Q0162; Q9967; 80320; 81001; 82746; 83721; 87086

== ENCOUNTER 2019-03-05 08:00 | Outpatient (CLI) | payer MEDICARE, OTHER | END 2019-03-05 23:59 | disposition home or self-care (01) | LOC: LAB.R 08:00 | DX: Z51.81 Encounter for therapeutic drug level monitoring (principal); Z79.899 Other long term (current) drug therapy | CPT/HCPCS: 80185 ==

== ENCOUNTER 2019-03-08 08:00 | Outpatient (CLI) | payer MEDICARE, OTHER | END 2019-03-08 23:59 | disposition home or self-care (01) | LOC: LAB.R 08:00 | DX: Z51.81 Encounter for therapeutic drug level monitoring (principal); G40.89 Other seizures | CPT/HCPCS: 80185 ==

== ENCOUNTER 2019-03-09 08:00 | Outpatient (CLI) | payer MEDICARE, OTHER ==
[2019-03-09 17:14] LABS: CALCIUM 9.5 mg/dL (8.5-10.3); CREATININE 0.8 mg/dL (0.6-1.2)
== END 2019-03-09 23:59 | disposition home or self-care (01) ==
LOC: LAB.R 08:00
DX: E87.6 Hypokalemia (principal)
CPT/HCPCS: 80048

== ENCOUNTER 2019-03-12 08:00 | Outpatient (CLI) | payer MEDICARE, OTHER | END 2019-03-12 23:59 | disposition home or self-care (01) | LOC: LAB.R 08:00 | PROVIDERS: ATTEND Family Medicine | DX: G40.89 Other seizures (principal) | CPT/HCPCS: 80185 ==

== ENCOUNTER 2019-03-15 08:00 | Outpatient (CLI) | payer MEDICARE, OTHER | END 2019-03-15 23:59 | disposition home or self-care (01) | LOC: LAB.R 08:00 | DX: G40.89 Other seizures (principal) | CPT/HCPCS: 80185 ==

== ENCOUNTER 2019-03-17 08:00 | Outpatient (CLI) | payer MEDICARE, OTHER ==
[2019-03-17 20:38] LABS: ALBUMIN 3.3 g/dL (3.2-5.5); BILIRUBIN,TOTAL 0.4 mg/dL (0.2-1.0); CALCIUM 9.7 mg/dL (8.5-10.3); CREATININE 0.7 mg/dL (0.6-1.2); TOTAL PROTEIN 6.7 g/dL (6.7-8.2)
== END 2019-03-17 23:59 | disposition home or self-care (01) ==
LOC: LAB.R 08:00
PROVIDERS: ATTEND Family Medicine
DX: K85.30 Drug induced acute pancreatitis without necrosis or infection (principal); K85.90 Acute pancreatitis without necrosis or infection, unspecified
CPT/HCPCS: 80053; 82150; 83690; 85025

== ENCOUNTER 2019-03-19 11:15 | Outpatient (CLI) | payer MEDICARE, OTHER ==
[2019-03-19 16:28] LABS: BASOPHILS % (AUTO) 0.2 %; EOSINOPHILS % (AUTO) 0.5 %; HGB - HEMOGLOBIN 12.6 g/dL (14.0-18.0); LYMPHOCYTES # (AUTO) 0.7 10^3/uL (1.5-3.5); LYMPHOCYTES % (AUTO) 7.2 %; MEAN CORPUSCULAR HEMOGLOBIN 34.5 pg (27.0-31.0); MEAN CORPUSCULAR HGB CONC 33.6 g/dL (32.0-36.0); MEAN CORPUSCULAR VOLUME 102.7 fL (80.0-94.0); MEAN PLATELET VOLUME 7.8 fL (7.4-11.4); MONOCYTES # (AUTO) 0.4 10^3/uL (0.0-1.0); MONOCYTES % (AUTO) 4.4 %; NEUTROPHILS # (AUTO) 8.5 10^3/uL (1.5-6.6); NEUTROPHILS % (AUTO) 87.7 %; PLT - PLATELET COUNT 391 10^3/uL (130-450); RED BLOOD COUNT 3.65 10^6/uL (4.70-6.10); RED CELL DISTRIBUTION WIDTH 14.3 % (12.0-15.0); WHITE BLOOD COUNT 9.7 x10^3/uL (4.8-10.8)
== END 2019-03-19 23:59 | disposition home or self-care (01) ==
LOC: LAB.R 11:15
DX: D53.9 Nutritional anemia, unspecified (principal); G40.89 Other seizures
CPT/HCPCS: 80185; 85025

== ENCOUNTER 2019-03-22 08:00 | Outpatient (CLI) | payer MEDICARE, OTHER | END 2019-03-22 23:59 | disposition home or self-care (01) | LOC: LAB.R 08:00 | DX: G40.89 Other seizures (principal) | CPT/HCPCS: 80185 ==

== ENCOUNTER 2019-03-24 08:00 | Outpatient (CLI) | payer MEDICARE, OTHER ==
[2019-03-24 12:35] LABS: CALCIUM 9.7 mg/dL (8.5-10.3); CREATININE 0.7 mg/dL (0.6-1.2)
== END 2019-03-24 23:59 | disposition home or self-care (01) ==
LOC: LAB.R 08:00
DX: K85.90 Acute pancreatitis without necrosis or infection, unspecified (principal)
CPT/HCPCS: 80048; 82150; 83690

== ENCOUNTER 2019-03-26 09:53 | Outpatient (CLI) | payer MEDICARE, OTHER | END 2019-03-26 23:59 | disposition home or self-care (01) | LOC: LAB.R 09:53 | DX: G40.89 Other seizures (principal) | CPT/HCPCS: 36415; 80185 ==

== ENCOUNTER 2019-03-29 11:38 | Outpatient (CLI) | payer MEDICARE, OTHER | END 2019-03-29 23:59 | disposition home or self-care (01) | LOC: LAB.R 11:38 | DX: G40.89 Other seizures (principal) | CPT/HCPCS: 80185 ==

== ENCOUNTER 2019-04-02 20:55 | Outpatient (CLI) | payer MEDICARE, OTHER | END 2019-04-02 23:59 | disposition home or self-care (01) | LOC: LAB.R 20:55 | DX: G40.89 Other seizures (principal) | CPT/HCPCS: 80185 ==

== ENCOUNTER 2019-04-06 20:50 | Outpatient (CLI) | payer MEDICARE, OTHER | END 2019-04-06 23:59 | disposition home or self-care (01) | LOC: LAB.R 20:50 | DX: G40.89 Other seizures (principal) | CPT/HCPCS: 80185 ==

== ENCOUNTER 2019-04-09 19:31 | Outpatient (CLI) | payer MEDICARE, OTHER | END 2019-04-09 23:59 | disposition home or self-care (01) | LOC: LAB.R 19:31 | DX: G40.89 Other seizures (principal) | CPT/HCPCS: 80185 ==

== ENCOUNTER 2019-04-19 11:53 | Outpatient (CLI) | payer MEDICARE, OTHER | END 2019-04-19 23:59 | disposition home or self-care (01) | LOC: LAB.R 11:53 | DX: G40.89 Other seizures (principal) | CPT/HCPCS: 80185 ==

== ENCOUNTER 2019-04-19 15:20 | Outpatient (CLI) | payer MEDICARE, OTHER ==
[2019-04-19 16:49] LABS: BASOPHILS % (AUTO) 0.2 %; EOSINOPHILS # (AUTO) 0.1 10^3/uL (0.0-0.7); EOSINOPHILS % (AUTO) 0.6 %; HGB - HEMOGLOBIN 9.5 g/dL (14.0-18.0); LYMPHOCYTES # (AUTO) 0.5 10^3/uL (1.5-3.5); LYMPHOCYTES % (AUTO) 4.9 %; MEAN CORPUSCULAR HEMOGLOBIN 34.5 pg (27.0-31.0); MEAN CORPUSCULAR HGB CONC 33.2 g/dL (32.0-36.0); MEAN PLATELET VOLUME 9.6 fL (7.4-11.4); MONOCYTES # (AUTO) 0.4 10^3/uL (0.0-1.0); MONOCYTES % (AUTO) 3.7 %; NEUTROPHILS # (AUTO) 10.1 10^3/uL (1.5-6.6); NEUTROPHILS % (AUTO) 90.2 %; PLT - PLATELET COUNT 447 10^3/uL (130-450); RED BLOOD COUNT 2.75 10^6/uL (4.70-6.10); RED CELL DISTRIBUTION WIDTH 15.1 % (12.0-15.0); WHITE BLOOD COUNT 11.1 x10^3/uL (4.8-10.8)
[2019-04-19 16:54] LABS: CALCIUM 9.6 mg/dL (8.5-10.3); CREATININE 0.7 mg/dL (0.6-1.2)
== END 2019-04-19 23:59 | disposition home or self-care (01) ==
LOC: LAB.R 15:20
DX: R79.89 Other specified abnormal findings of blood chemistry (principal); G40.89 Other seizures; K85.30 Drug induced acute pancreatitis without necrosis or infection
CPT/HCPCS: 80048; 80185; 85025

== ENCOUNTER 2019-04-23 14:40 | Outpatient (CLI) | payer MEDICARE, OTHER | END 2019-04-23 23:59 | disposition home or self-care (01) | LOC: LAB.R 14:40 | DX: G40.89 Other seizures (principal) | CPT/HCPCS: 80185 ==

== ENCOUNTER 2019-05-04 14:29 | Outpatient (CLI) | payer MEDICARE, OTHER ==
[2019-05-04 14:58] LABS: BASOPHILS % (AUTO) 0.3 %; EOSINOPHILS % (AUTO) 0.5 %; HGB - HEMOGLOBIN 10.9 g/dL (14.0-18.0); LYMPHOCYTES # (AUTO) 1.4 10^3/uL (1.5-3.5); LYMPHOCYTES % (AUTO) 18.4 %; MEAN CORPUSCULAR HEMOGLOBIN 34.7 pg (27.0-31.0); MEAN CORPUSCULAR HGB CONC 32.8 g/dL (32.0-36.0); MEAN CORPUSCULAR VOLUME 105.7 fL (80.0-94.0); MEAN PLATELET VOLUME 9.2 fL (7.4-11.4); MONOCYTES # (AUTO) 0.7 10^3/uL (0.0-1.0); MONOCYTES % (AUTO) 9.5 %; NEUTROPHILS # (AUTO) 5.3 10^3/uL (1.5-6.6); PLT - PLATELET COUNT 416 10^3/uL (130-450); RED BLOOD COUNT 3.14 10^6/uL (4.70-6.10); RED CELL DISTRIBUTION WIDTH 14.8 % (12.0-15.0); WHITE BLOOD COUNT 7.5 x10^3/uL (4.8-10.8)
[2019-05-04 15:08] LABS: ALBUMIN 3.9 g/dL (3.2-5.5); ALBUMIN/GLOBULIN RATIO 1.1 (1.0-2.2); BILIRUBIN,TOTAL 0.7 mg/dL (0.2-1.0); CALCIUM 10.2 mg/dL (8.5-10.3); CREATININE 0.7 mg/dL (0.6-1.2); PHENYTOIN (DILANTIN) 8.9 ug/mL; TOTAL PROTEIN 7.3 g/dL (6.7-8.2)
== END 2019-05-04 14:30 | disposition home or self-care (01) ==
LOC: LAB 14:29
PROVIDERS: ATTEND Family Medicine
DX: D69.6 Thrombocytopenia, unspecified (principal); R25.1 Tremor, unspecified; R94.5 Abnormal results of liver function studies; R56.9 Unspecified convulsions
CPT/HCPCS: 36415; 80053; 80185; 85025

== ENCOUNTER 2019-05-19 14:51 | Outpatient (CLI) | payer MEDICARE, OTHER | END 2019-05-19 14:52 | disposition home or self-care (01) | LOC: LAB 14:51 | PROVIDERS: ATTEND Family Medicine | DX: G40.909 Epilepsy, unspecified, not intractable, without status epilepticus (principal) | CPT/HCPCS: 36415; 80185 ==

== ENCOUNTER 2019-05-21 08:00 | Outpatient (CLI) | payer MEDICARE, OTHER ==
[2019-05-21 15:33] LABS: CALCIUM 10.2 mg/dL (8.5-10.3); CREATININE 0.8 mg/dL (0.6-1.2)
== END 2019-05-21 23:59 | disposition home or self-care (01) ==
LOC: LAB 08:00
PROVIDERS: ATTEND Family Medicine
DX: E87.6 Hypokalemia (principal); C61 Malignant neoplasm of prostate
CPT/HCPCS: 36415; 80048; 84153

== ENCOUNTER 2019-06-09 11:40 | Emergency (ER) | payer MEDICARE, OTHER ==
[2019-06-09 11:47] VITALS: BP 155/78
--- NOTE | 2019-06-09 14:59 | ED Physician Documentation ---
History of Present Illness - Stated complaint Stated Complaint: ABD PX - Chief complaint Chief Complaint: Abd Pain - Additonal information Additional information: This is an 79-year-old male with a history of splenectomy, bowel resection, mu ltiple hernia repairs, who presents with concern for hernia. He noticed a bulge on his left lower abdomen over the last week, yesterday he states that she had to lay backwards and press on it to reduce it. It is now reduced, but he is concerned that it will come out again, and wants to see someone regarding his hernia. He had a normal bowel movement this morning, he denies vomiting. At this time he does not have abdominal discomfort. Review of Systems Constitutional: denies: Fever GI: reports: Other (+ for hernia). denies: Vomiting PD PAST MEDICAL HISTORY - Past Medical History Cardiovascular: None Respiratory: None Neuro: None Endocrine/Autoimmune: None GI: GERD : Kidney stones HEENT: None Psych: Anxiety Musculoskeletal: Osteoarthritis Derm: None, Psoriasis - Past Surgical History Past Surgical History: Yes General: Cholecystectomy, Appendectomy, Splenectomy Ortho: Hip replacement HEENT: Tonsil/Adenoidectomy - Present Medications Home Medications: Ambulatory Orders Medication Instructions Recorded Confirmed Aspirin EC [Ecotrin] 81 mg PO DAILY 06/27/13 02/21/19 Vit A,C & E/Lutein/Minerals 1 each PO DAILY 06/27/13 02/21/19 [Ocuvite with Lutein Tablet] Cyanocobalamin (Vitamin B-12) 1,000 mcg PO DAILY 02/09/14 02/21/19 [Vitamin B-12] Cholecalciferol (Vitamin D3) 2,000 units ORAL DAILY 05/03/14 02/21/19 [Vitamin D3] levOCARNitine tartrate 250 mg PO BID 05/09/18 02/21/19 [l-Carnitine] Polyethylene Glycol 3350 [Miralax] 17 gm PO DAILY 01/06/19 02/21/19 Finasteride 5 mg PO DAILY 02/21/19 02/21/19 Mirabegron [Myrbetriq] 50 mg PO DAILY 02/21/19 02/21/19 Famotidine [Pepcid] 20 mg PO DAILY #30 tablet 02/27/19 LORazepam [Ativan] 0.5 mg PO DAILY PRN #0 02/27/19 02/21/19 Phenytoin [Dilantin] 400 mg PO 2100 #120 capsule 02/27/19 Sertraline [Zoloft] 25 mg PO DAILY #30 tablet 02/27/19 oxyCODONE ER [OxyCONTIN] 10 mg ORAL QPM #30 tablet 02/27/19 - Allergies Allergies/Adverse Reactions: Allergies Allergy/AdvReac Type Severity Reaction Status Date / Time amitriptyline [Amitriptyline] Allergy Intermediate Hallucinati Verified 06/09/19 11:47 ons heparinoids Allergy Intermediate Rash Verified 06/09/19 11:47 - Social History Does the pt smoke?: No Smoking Status: Never smoker Does the pt drink ETOH?: Yes Does the pt have substance abuse?: No - Immunizations Immunizations are current?: Yes - POLST Patient has POLST: No PD ED PE NORMAL - Vitals Vital signs reviewed: Yes - General General: Alert and oriented X 3, No acute distress - HEENT HEENT: Atraumatic - Cardiac Cardiac: RRR, No murmur - Respiratory Respiratory: No respiratory distress - Abdomen Abdomen: Other (Multiple well-healed abdominal incisional scars, there is just above the left inguinal region a palpable muscle wall defect. There is no irreducible mass, no tenderness, no skin changes.) - Male Male : Other (Penis and scrotum are normal in appearance, there is no inguinal mass palpated when patient is sitting.) - Derm Derm: Warm and dry - Neuro Neuro: Alert and oriented X 3 - Psych Psych: Normal mood, Normal affect Results - Vitals Vitals: Vital Signs - 24 hr 06/09/19 11:42 Temperature 36.4 C L Heart Rate 76 Respiratory 16 Rate Blood Pressure 155/78 H O2 Saturation 100 Oxygen O2 Source Room air PD MEDICAL DECISION MAKING - ED course Complexity details: considered differential (Hernia, ingunal hernia, incisional hernia, abdominal mass, bowel obstruction, incarcerated hernia, strangulated hernia) ED course: Patient presents with a hernia that is easily reducible. There are no signs of incarceration or strangulation. He is having normal bowel movments, no vomiting, and his abdomen is non-tender. No signs of obstruction. I discussed that he needs to follow up with a general surgeon and referral was placed, he will also call the surgery office to schedule an appt and will also follow with his PCP. I discussed return precautions including increasing pain, redness, vomiting, inability to have a bowel movment, or any other concerning symptoms. Patient was discharged in the care of his . Departure - Departure Disposition: 01 Home, Self Care Clinical Impression: Hernia of abdominal wall Condition: Poor Follow-Up: Gonzalo Loyola MD [Provider Admit Priv/Credential] - Within 1 week (For evaluation of hernia) Comments: You were seen today for hernia of your abdominal wall. Please follow-up with a general surgeon for evaluation. Please also follow-up with your primary care provider. If you develop a bulge/hernia which you cannot reduce/put back in, or if you develop severe abdominal pain, vomiting, or inability to have a bowel movement please return to emergency department. Discharge Date/Time: 06/09/19 16:07
== END 2019-06-09 16:07 | disposition home or self-care (01) ==
LOC: ED 11:40
DX: K43.9 Ventral hernia without obstruction or gangrene (principal); Z90.49 Acquired absence of other specified parts of digestive tract; Z90.81 Acquired absence of spleen; Z79.82 Long term (current) use of aspirin
CPT/HCPCS: 99281; 99282

== ENCOUNTER 2019-06-18 13:40 | Outpatient (CLI) | payer MEDICARE, OTHER | END 2019-06-18 13:41 | disposition home or self-care (01) | LOC: LAB 13:40 | PROVIDERS: ATTEND Family Medicine | DX: Z53.9 Procedure and treatment not carried out, unspecified reason (principal) ==

== ENCOUNTER 2019-06-18 13:48 | Outpatient (CLI) | payer MEDICARE, OTHER | END 2019-06-18 13:49 | disposition home or self-care (01) | LOC: LAB 13:48 | PROVIDERS: ATTEND Family Medicine | DX: R56.9 Unspecified convulsions (principal) | CPT/HCPCS: 36415; 80185 ==

== ENCOUNTER 2019-07-16 13:53 | Outpatient (CLI) | payer MEDICARE, OTHER ==
[2019-07-16 14:41] LABS: CALCIUM 10.2 mg/dL (8.5-10.3); CREATININE 0.8 mg/dL (0.6-1.2)
[2019-07-16] MEDS ORDERED: IOVERSOL 320 100 ML VIAL IVP ONE ×2 (14:46→16:17)
[2019-07-16] MEDS ORDERED: IOVERSOL 320 50 ML VIAL ONE (14:46)
[2019-07-16] MEDS ORDERED: IOVERSOL 320 50 ML VIAL PO ONE (16:17)
--- NOTE | 2019-07-19 15:55 | CT Report ---
Reason: RT GROIN PAIN, RECURRENT LT INGUINAL HERNIA Procedure Date: 07/16/2019 Accession Number: [id number] Procedure: CT - Abdomen/Pelvis W CPT Code: FULL RESULT: EXAM: CT ABDOMEN AND PELVIS EXAM DATE: 07/16/2019 04:15 PM. CLINICAL HISTORY: Right groin pain, recurrent left inguinal hernia. COMPARISONS: ABDOMEN W/WO 02/24/2019 8:26 AM. ABDOMEN/PELVIS W/ 02/20/2019 12:45 AM. TECHNIQUE: Routine helical CT imaging was performed through the abdomen and pelvis. IV contrast: 100 cc [id number]. Enteric contrast: Yes. Reconstructions: Coronal and sagittal. In accordance with CT protocol optimization, one or more of the following dose reduction techniques were utilized for this exam: automated exposure control, adjustment of mA and/or KV based on patient size, or use of iterative reconstructive technique. FINDINGS: Groins: 1. There is again a small to moderate-sized fat containing left inguinal indirect hernia with mild fat stranding, similar to the prior exam. 2. There is no right inguinal hernia, mass or fluid collection. Lung Bases: Unremarkable. Liver: Unremarkable. Gallbladder/Bile Ducts: Status post cholecystectomy, unremarkable. Spleen: Normal. Pancreas: The prior peripancreatic fat stranding is no longer seen; no peripancreatic fluid collection, pancreatic mass, cyst or pancreatic ductal dilatation noted. Adrenal Glands: Normal. Kidneys: No stone, masses or hydronephrosis. Peritoneal Cavity/Bowel: No free fluid, free air or adenopathy. There is new borderline to mild dilatation of the proximal jejunum to 3.1 cm without thickened wall or thickening of the mucosal folds, or filling defect, uncertain clinical significance. No masses or acute inflammatory process.The appendix is not visualized and no mass or inflammatory changes in the right lower abdomen seen. Pelvic Organs: Normal. The bladder and visualized pelvic organs are within normal limits. Vasculature: No aneurysms or other significant abnormality. Bones: No significant abnormality. Status post left total hip replacement and mild/moderate degenerative arthritis in the right hip, multilevel moderate to severe degenerative disk disease in the lumbar spine, predominantly at L4-L5 are again noted, similar to the prior exam. Other: None. IMPRESSION: 1. No significant interval change of the small to moderate-sized fat containing left inguinal indirect hernia with mild fat stranding. 2. No right inguinal hernia, mass or fluid collection. 3. New borderline to mild dilatation of the proximal jejunum to 3.1 cm without thickened wall or thickening of the mucosal folds, or filling defect, uncertain clinical significance. 4. Status post cholecystectomy, unremarkable. 5. Interval resolution of the prior peripancreatic fat stranding. RADIA
== END 2019-07-16 13:54 | disposition home or self-care (01) ==
LOC: LAB 13:53 → DI 13:54
PROVIDERS: ATTEND Surgery
DX: K40.91 Unilateral inguinal hernia, without obstruction or gangrene, recurrent (principal); R10.9 Unspecified abdominal pain; R56.9 Unspecified convulsions
CPT/HCPCS: 36415; 74177; 80048; 80185; Q9967

== ENCOUNTER 2019-08-03 10:40 | Day surgery (SDC) | payer MEDICARE, OTHER ==
[~2019-08-03 10:40] MED LIST: CEFAZOLIN SODIUM IN 0.9 % NACL 2 GM/100 ML BAG IV ONE
[2019-08-03] MEDS ORDERED: fentaNYL 100 MCG/2 ML VIAL IVP ONE ×2 (10:41)
[2019-08-03] MEDS ORDERED: ePHEDrine 50 MG/ML VIAL IVP ONE (10:41)
[2019-08-03] MEDS ORDERED: PROPOFOL 200 MG/20 ML VIAL IVP ONE (10:41)
[2019-08-03] MEDS ORDERED: LACTATED RINGERS 1,000 ML IV ONE ×2 (10:44→14:47)
[2019-08-03] MEDS ORDERED: LIDOCAINE MPF 1%-EPI 1:200000 30 ML VIAL ONE (12:37)
[2019-08-03] MEDS ORDERED: BUPIVACAINE 0.5% PF 30 ML VIAL ONE (12:37)
--- NOTE | 2019-08-03 12:46 | ANESTHESIA ---
Pre-Anesthesia VS, & Labs - Diagnosis Recurrent Left Inguinal Hernia - Procedure Left Inguinal Hernia Repair Vital Signs: Temp Pulse Resp BP Pulse Ox 36.9 C 70 16 167/87 H 98 08/03/19 10:51 08/03/19 10:51 08/03/19 10:51 08/03/19 10:51 08/03/19 10:51 Height 5 ft 7 in Weight (kg) 72.4 kg Body Mass Index 23.9 - NPO >8 hours Last Fluid Intake: 4 oz H20 at 0815 Home Medications and Allergies Home Medications: Ambulatory Orders Acetaminophen [Tylenol] 650 mg PO Q6H PRN 07/28/19 Famotidine [Pepcid] 20 mg PO BID 07/28/19 Meloxicam 15 mg PO DAILY 07/28/19 Phenytoin Infatab [Dilantin Infatab] 50 mg PO QPM 07/28/19 Phenytoin [Dilantin] 200 mg PO DAILY 07/28/19 Potassium Chloride 10 meq PO DAILY 07/28/19 Aspirin EC [Ecotrin] 81 mg PO DAILY 06/27/13 Vit A,C & E/Lutein/Minerals [Ocuvite with Lutein Tablet] 1 each PO DAILY 06/27/13 Cyanocobalamin (Vitamin B-12) [Vitamin B-12] 1,000 mcg PO DAILY 02/09/14 Cholecalciferol (Vitamin D3) [Vitamin D3] 2,000 units ORAL DAILY 05/03/14 levOCARNitine tartrate [l-Carnitine] 250 mg PO BID 05/09/18 Polyethylene Glycol 3350 [Miralax] 17 gm PO DAILY 01/06/19 Finasteride 5 mg PO DAILY 02/21/19 Mirabegron [Myrbetriq] 50 mg PO DAILY 02/21/19 Acetaminophen [Tylenol] 650 mg PO Q6H PRN 07/28/19 Famotidine [Pepcid] 20 mg PO BID 07/28/19 Meloxicam 15 mg PO DAILY 07/28/19 Phenytoin Infatab [Dilantin Infatab] 50 mg PO QPM 07/28/19 Phenytoin [Dilantin] 200 mg PO DAILY 07/28/19 Potassium Chloride 10 meq PO DAILY 07/28/19 Allergies/Adverse Reactions: Allergies Allergy/AdvReac Type Severity Reaction Status Date / Time amitriptyline [Amitriptyline] Allergy Intermediate Hallucinati Verified 06/09/19 11:47 ons heparinoids Allergy Intermediate Rash Verified 06/09/19 11:47 baclofen Allergy Unknown Verified 07/28/19 13:21 celecoxib Allergy Unknown Verified 07/28/19 13:21 diphenhydramine Allergy paradoxical Verified 07/28/19 13:21 reaction divalproex sodium Allergy pancreatiti Verified 07/28/19 13:21 [From Depakote] s glucosamine Allergy Unknown Verified 07/28/19 13:21 naproxen Allergy GI pain Verified 07/28/19 13:21 oxcarbazepine Allergy Unknown Verified 07/28/19 13:21 [From Trileptal] pregabalin [From Lyrica] Allergy pancreatiti Verified 07/28/19 13:21 s Anes History & Medical History - Anesthetic History Anesthesia Complications: reports: No previous complications - Medical History Cardiovascular: reports: Hypertension Pulmonary: reports: Sleep apnea (Does not use CPAP) Gastrointestinal: reports: GERD (controlled on medication), Pancreatitis Urinary: reports: Kidney stones, Other Neuro: reports: 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) Musculoskeletal: reports: Osteoarthritis, Chronic back pain, Other Endocrine/Autoimmune: reports: None Blood Disorders: reports: Idiopathic thrombocytopenic purpura Skin: reports: None, Psoriasis Smoking Status: Former smoker (Quit in 1979) - Surgical History General: Cholecystectomy, Appendectomy, Bowel surgery, Splenectomy Eyes Ears Nose Throat (EENT): Tonsil/Adenoidectomy, Other Urologic: Prostatic surgery Orthopedic: Hip replacement, Arthroscopic surgery Results - EKG Results EKG Comparison: Reviewed EKG Exam General: Alert, Oriented x3, Cooperative, No acute distress Dental: Poor dentition Mouth Openin Fingerbreadth Neck Mobility: Normal Mallampati classification: II Thyromental Distance: greater than 6 cm Respiratory: Lungs clear, Normal breath sounds, No respiratory distress, No accessory muscle use Cardiovascular: Regular rate, Normal S1, Normal S2, No murmurs Mental/Cognitive Status: Alert/Oriented X3, Normal for patient Plan Anesthesia Type: General Consent for Procedure(s) Verified and Reviewed: Yes Code Status: Attempt Resuscitation ASA classification: 3-Severe systemic disease Is this case an emergency?: No
[2019-08-03] MEDS ORDERED: ceFAZolin 1 GM VIAL ONE (12:50)
[2019-08-03] MEDS ORDERED: ceFAZolin 1 GM VIAL IR ONE (13:40)
[2019-08-03] MEDS ORDERED: LIDOCAINE 1% 10 ML MDV SUBQ ONE (13:40)
[2019-08-03] MEDS ORDERED: BUPIVACAINE 0.5%-EPI 1:200000 PF 30 ML VIAL SUBQ ONE (13:40)
--- NOTE | 2019-08-03 14:14 | OPERATIVE REPORT ---
Operative Report - General Procedure Date: 08/03/19 Planned Procedure: Left Inguinal Hernia Repari Pre-Op Diagnosis: Left Inguinal Hernia Procedure Performed: Left Inguinal Hernia Repair Post Op Diagnosis: Left Inguinal Hernia - Procedure Note Primary Surgeon: Nir Anesthesia Provider: MUKESH Vergara Anesthesia Technique: General LMA, Local, Regional block Estimated Blood Loss (mL): 5 Indications: Symptomatic left inguinal hernia Findings: Large direct inguinal hernia Complications: None apparent - Other Other Information/Narrative: After obtaining informed consent, the patient is brought to the operating room and placed in the supine position on the operating table. Following successful induction of general anesthesia, appropriate padding of all bony prominences, and placement of appropriate monitors, the left abdomen and groin were prepped and draped in the standard surgical fashion. A timeout was held per [facility] protocol. All elements of the surgical safety checklist were followed before, during, and after the procedure. We began with an ileal inguinal nerve block on the left side. This was performed by infiltrating a mixture of local anesthetics medial to the anterior superior iliac spine on the left side. We continued by anesthetizing and location for the incision in the left lower quadrant. The incision was then created and carried down through the skin and subcutaneous tissue. Beyond Moe's fascia, and to reveal the external oblique aponeurosis. Additional local anesthetic was applied. The aponeurosis was opened in the direction of its fibers and the leaflets reflected superiorly and inferiorly.The spermatic cord was identified in the medial position.The hernia defect was identified as well. There was a very large direct defectLateral to the spermatic cord.We elected to repair this defect with a large portion of Prolene hernia system mesh. The implant was dipped in Ancef containing solution and deployed into the defect per machine operations supervisor's directions. A farhana was then created in the medial aspect of the overlying leaflet for placement of the spermatic cord. This farhana was then closed with a single Prolene suture. This allowed to the cord to lay on top of the mesh without constriction. The more lateral/superior aspect of the anterior leaflet was then tucked under the external oblique aponeurosis and the more inferior/medial aspect of the anterior leaflet was sewn to Chip's ligament medially using a Vicryl suture. The wound was checked for hemostasis. The repair was checked for completeness.The wound was irrigated with warm saline solution and aspirated free of all fluid and particulate matter. The external oblique aponeurosis was reapproximated with Vicryl suture, Moe's fascia was closed with Vicryl suture, and Monocryl stitches were placed in the skin. All sponge, needle, and instrument counts were correct at the conclusion of the case. The patient was allowed to awaken from anesthesia without difficulty and taken to the postanesthesia care unit in good condition.
[2019-08-03] MEDS ORDERED: oxyCODONE 5 MG TABLET PO PRN (14:22)
[2019-08-03] MEDS ORDERED: ONDANSETRON 4 MG/2 ML VIAL IVP PRN (14:22)
[2019-08-03] MEDS ORDERED: HYDROmorphone 0.5 MG/0.5 ML SYRINGE IVP PRN (14:22)
[2019-08-03] MEDS ORDERED: HYDROmorphone 0.5 MG/0.5 ML SYRINGE ONE (14:45)
--- NOTE | 2019-08-03 15:03 | OPERATIVE REPORT ---
Operative Report - General Procedure Date: 08/03/19 Planned Procedure: Left inguinal hernia repair Pre-Op Diagnosis: Left Inguinal Hernia Procedure Performed: Left inguinal hernia repair Post Op Diagnosis: Same - Procedure Note Primary Surgeon: Nir Anesthesia Provider: MUKESH Vergara Anesthesia Technique: General LMA, Local, Regional block Estimated Blood Loss (mL): 5 Indications: Painful left inguinal hernia Findings: Large direct left inguinal hernia Complications: None apparent
[2019-08-03] MEDS ORDERED: oxyCODONE 5 MG TABLET ONE (15:22)
[2019-08-03 16:04] VITALS: BP 142/64
== END 2019-08-03 10:41 | disposition home or self-care (01) ==
LOC: SDS 10:40
PROVIDERS: ATTEND Surgery
PROC: 0YU60JZ Supplement Left Inguinal Region with Synthetic Substitute, Open Approach (ICD-10-PCS; principal; 2019-08-03 11:45)
DX: K40.91 Unilateral inguinal hernia, without obstruction or gangrene, recurrent (principal); I10 Essential (primary) hypertension; G47.33 Obstructive sleep apnea (adult) (pediatric); G40.909 Epilepsy, unspecified, not intractable, without status epilepticus; Z87.891 Personal history of nicotine dependence
CPT/HCPCS: 49520; A9270; C1781; J0690; J1170; J7120

== ENCOUNTER 2019-09-10 13:04 | Emergency (ER) | payer MEDICARE, OTHER ==
--- NOTE | 2019-09-10 14:04 | ED Physician Documentation ---
History of Present Illness - Stated complaint Stated Complaint: HEADACHE/R LEG NUMBNESS - Chief complaint Chief Complaint: Neuro - History obtained from History obtained from: Patient, Family - History of Present Illness Timing: How many days ago (5) Pain level max: 5 Pain level now: 3 Improved by: Tylenol Worsened by: Nothing - Additonal information Additional information: 79-year-old male presents to the emergency department stating that he has had a left-sided headache for the past 5 days. Relieves with Tylenol, but then the headache recurs. 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 He states that this occurs sometimes but normally resolves with Ativan. He states he took Ativan today and did not feel better so came to the emergency department for evaluation. No new focal neurological deficits. No seizures. He is on Dilantin for seizures and has not had his level checked in over a month. Review of Systems Ten Systems: 10 systems reviewed and negative Constitutional: denies: Fever, Chills Nose: denies: Rhinorrhea / runny nose, Congestion Respiratory: denies: Cough GI: denies: Abdominal Pain, Vomiting, Diarrhea : denies: Dysuria, Frequency, Hesitancy Skin: denies: Rash Musculoskeletal: denies: Neck pain, Back pain Neurologic: denies: Focal weakness, Numbness, Seizure, Confused, Head injury, LOC PD PAST MEDICAL HISTORY - Past Medical History Cardiovascular: Hypertension Respiratory: Sleep apnea Neuro: Seizure disorder Endocrine/Autoimmune: None GI: GERD, Pancreatitis : Kidney stones, Other HEENT: Chronic hearing loss, Other Psych: Anxiety Musculoskeletal: Osteoarthritis, Chronic back pain, Other Derm: None, Psoriasis - Past Surgical History Past Surgical History: Yes General: Cholecystectomy, Appendectomy, Bowel surgery, Splenectomy Ortho: Hip replacement, Arthroscopic surgery HEENT: Tonsil/Adenoidectomy, Other - Present Medications Home Medications: Ambulatory Orders Medication Instructions Recorded Confirmed Aspirin EC [Ecotrin] 81 mg PO DAILY 06/27/13 07/28/19 Vit A,C & E/Lutein/Minerals 1 each PO DAILY 06/27/13 07/28/19 [Ocuvite with Lutein Tablet] Cyanocobalamin (Vitamin B-12) 1,000 mcg PO DAILY 02/09/14 07/28/19 [Vitamin B-12] Cholecalciferol (Vitamin D3) 2,000 units ORAL DAILY 05/03/14 07/28/19 [Vitamin D3] levOCARNitine tartrate 250 mg PO BID 05/09/18 08/03/19 [l-Carnitine] Polyethylene Glycol 3350 [Miralax] 17 gm PO DAILY 01/06/19 07/28/19 Finasteride 5 mg PO DAILY 02/21/19 07/28/19 Mirabegron [Myrbetriq] 50 mg PO DAILY 02/21/19 07/28/19 oxyCODONE ER [OxyCONTIN] 10 mg ORAL QPM #30 tablet 02/27/19 07/28/19 Acetaminophen [Tylenol] 650 mg PO Q6H PRN 07/28/19 07/28/19 Famotidine [Pepcid] 20 mg PO BID 07/28/19 07/28/19 Meloxicam 15 mg PO DAILY 07/28/19 08/03/19 Phenytoin Infatab [Dilantin 50 mg PO QPM 07/28/19 07/28/19 Infatab] Phenytoin [Dilantin] 200 mg PO DAILY 07/28/19 08/03/19 Potassium Chloride 10 meq PO DAILY 07/28/19 08/03/19 Ondansetron Odt [Zofran] 4 mg TL Q6H PRN #10 tablet 08/03/19 oxyCODONE/ACET 5/325 [Percocet 5 1 each PO Q4-6H PRN #20 tablet 08/03/19 mg/325 mg] - Allergies Allergies/Adverse Reactions: Allergies Allergy/AdvReac Type Severity Reaction Status Date / Time amitriptyline [Amitriptyline] Allergy Intermediate Hallucinati Verified 09/10/19 13:16 ons heparinoids Allergy Intermediate Rash Verified 09/10/19 13:16 baclofen Allergy Unknown Verified 09/10/19 13:16 celecoxib Allergy Unknown Verified 09/10/19 13:16 diphenhydramine Allergy paradoxical Verified 09/10/19 13:16 reaction divalproex sodium Allergy pancreatiti Verified 09/10/19 13:16 [From Depakote] s glucosamine Allergy Unknown Verified 09/10/19 13:16 naproxen Allergy GI pain Verified 09/10/19 13:16 oxcarbazepine Allergy Unknown Verified 09/10/19 13:16 [From Trileptal] pregabalin [From Lyrica] Allergy pancreatiti Verified 09/10/19 13:16 s - Social History Does the pt smoke?: No Smoking Status: Never smoker Does the pt drink ETOH?: Yes Does the pt have substance abuse?: No - Immunizations Immunizations are current?: Yes - POLST Patient has POLST: No PD ED PE NORMAL - Vitals Vital signs reviewed: Yes - General General: Alert and oriented X 3, No acute distress, Well developed/nourished - HEENT HEENT: PERRL, Moist mucous membranes, Pharynx benign - Neck Neck: Supple, no meningeal sign - Cardiac Cardiac: RRR, Strong equal pulses - Respiratory Respiratory: No respiratory distress, Clear bilaterally - Abdomen Abdomen: Soft, Non tender, Non distended - Back Back: No spinal TTP - Derm Derm: Warm and dry, No rash - Extremities Extremities: No edema, No calf tenderness / cord - Neuro Neuro: Alert and oriented X 3, chief controller center 2-12 intact, No motor deficit, No sensory deficit, Normal speech, Other (Normal gait) Eye Opening: Spontaneous Motor: Obeys Commands Verbal: Oriented GCS Score: 15 - Psych Psych: Normal mood, Normal affect Results - Vitals Vitals: Vital Signs - 24 hr 09/10/19 09/10/19 14:28 15:57 Heart Rate 63 69 Respiratory 17 18 Rate Blood Pressure 141/81 H 123/76 O2 Saturation 97 98 Oxygen O2 Source Room air - Labs Labs: Laboratory Tests 09/10/19 09/10/19 09/10/19 14:00 14:17 14:17 WBC 7.8 RBC 3.39 L Hgb 11.5 L Hct 34.2 L MCV 100.9 H MCH 33.9 H MCHC 33.6 RDW 14.3 Plt Count 336 MPV 9.5 Neut # (Auto) 5.8 Lymph # (Auto) 1.3 L [place] # (Auto) 0.5 Eos # (Auto) 0.0 Baso # (Auto) 0.0 Absolute Nucleated RBC 0.00 Nucleated RBC % 0.0 Sodium 138 Potassium 4.2 Chloride 100 L Carbon Dioxide 28 Anion Gap 10.0 BUN 25 H Creatinine 0.7 Estimated GFR (MDRD) 109 Glucose 109 H Calcium 10.3 Total Bilirubin 0.6 AST 22 ALT 20 Alkaline Phosphatase 94 Total Protein 7.2 Albumin 4.0 Globulin 3.2 Albumin/Globulin Ratio 1.3 Lipase 22 Urine Color YELLOW Urine Clarity HAZY Urine pH 7.0 Ur Specific [place] 1.015 Urine Protein NEGATIVE Urine Glucose (UA) NEGATIVE Urine Ketones NEGATIVE Urine Occult Blood NEGATIVE Urine Nitrite NEGATIVE Urine Bilirubin NEGATIVE Urine Urobilinogen 0.2 (NORMAL) Ur Leukocyte Esterase NEGATIVE Urine RBC None Seen Urine WBC 0-3 Ur Squamous Epith Cells RARE Squamous Amorphous Sediment Few Urine Bacteria Rare Ur Microscopic Review INDICATED Urine Culture Comments NOT INDICATED Phenytoin 12.2 - Rads (name of study) head CT Radiology: Prelim report reviewed, EMP read contemporaneously, See rad report (No acute abnormality) PD MEDICAL DECISION MAKING - ED course Complexity details: reviewed results, re-evaluated patient, considered differential, d/w patient, d/w family ED course: No significant laboratory or radiographic findings. Dilantin level is therapeutic. We will have them continue supportive care and follow-up with his neurologist and PCP for further care. Patient and family counseled regarding signs and symptoms for which I believe and urgent re-evaluation would be necessary. Patient with good understanding of and agreement to plan and is comfortable going home at this time This document was made in part using voice recognition software. While efforts are made to proofread this document, sound alike and grammatical errors may occur. Departure - Departure Disposition: 01 Home, Self Care Clinical Impression: Neuropathy Headache Qualifiers: Headache type: unspecified Headache chronicity pattern: acute headache Intractability: not intractable Qualified Code(s): R51 - Headache Condition: Good Instructions: ED Cephalgia Unspecified, ED Neuropathy Peripheral Follow-Up: Bay Cruz MD [Primary Care Provider] - Within 1 week Comments: Your testing does not show any acute abnormalities today. Return if you worsen. Follow-up with your doctor for further care. Discharge Date/Time: 09/10/19 16:00
[2019-09-10 14:25] LABS: BASOPHILS % (AUTO) 0.3 %; EOSINOPHILS % (AUTO) 0.3 %; HGB - HEMOGLOBIN 11.5 g/dL (14.0-18.0); LYMPHOCYTES # (AUTO) 1.3 10^3/uL (1.5-3.5); LYMPHOCYTES % (AUTO) 17.3 %; MEAN CORPUSCULAR HEMOGLOBIN 33.9 pg (27.0-31.0); MEAN CORPUSCULAR HGB CONC 33.6 g/dL (32.0-36.0); MEAN CORPUSCULAR VOLUME 100.9 fL (80.0-94.0); MEAN PLATELET VOLUME 9.5 fL (7.4-11.4); MONOCYTES # (AUTO) 0.5 10^3/uL (0.0-1.0); MONOCYTES % (AUTO) 6.8 %; NEUTROPHILS # (AUTO) 5.8 10^3/uL (1.5-6.6); NEUTROPHILS % (AUTO) 74.9 %; PLT - PLATELET COUNT 336 10^3/uL (130-450); RED BLOOD COUNT 3.39 10^6/uL (4.70-6.10); RED CELL DISTRIBUTION WIDTH 14.3 % (12.0-15.0); WHITE BLOOD COUNT 7.8 x10^3/uL (4.8-10.8)
[2019-09-10 14:27] LABS: BILIRUBIN,URINE NEGATIVE (NEGATIVE); GLUCOSE, URINE (UA) NEGATIVE (NEGATIVE); KETONES,URINE (UA) NEGATIVE (NEGATIVE); LEUKOCYTE ESTERASE, URINE NEGATIVE (NEGATIVE); NITRITE,URINE NEGATIVE (NEGATIVE); OCCULT BLOOD,URINE NEGATIVE (NEGATIVE); PROTEIN,URINE NEGATIVE (NEGATIVE); UROBILINOGEN,URINE 0.2 (NORMAL) E.U./dL (NORMAL)
[2019-09-10 14:28] LABS: CLARITY,URINE HAZY (CLEAR)
[2019-09-10 14:31] LABS: AMORPHOUS SEDIMENT,UR Few /LPF; BACTERIA,URINE Rare /HPF (None Seen); RBC,URINE None Seen /HPF (0-5); SQUAMOUS EPITHELIAL CELL,UR RARE Squamous (<= Few)
[2019-09-10 14:39] LABS: ALBUMIN/GLOBULIN RATIO 1.3 (1.0-2.2); BILIRUBIN,TOTAL 0.6 mg/dL (0.2-1.0); CALCIUM 10.3 mg/dL (8.5-10.3); CREATININE 0.7 mg/dL (0.6-1.2); PHENYTOIN (DILANTIN) 12.2 ug/mL; TOTAL PROTEIN 7.2 g/dL (6.7-8.2)
--- NOTE | 2019-09-10 15:16 | CT Report ---
Reason: headache, history of ICH Procedure Date: 09/10/2019 Accession Number: [id number] / [id number] Procedure: CT - HEAD WO CPT Code: Final Report FULL RESULT: EXAM: CT HEAD EXAM DATE: 09/10/2019 02:49 PM. CLINICAL HISTORY: Headache, history of intracranial hemorrhage. COMPARISON: HEAD W/O STROKE PROTOCOL 02/25/2019 2:04 PM. TECHNIQUE: Multiaxial CT images were obtained from the foramen magnum to the vertex. Reformats: Sagittal and coronal. IV contrast: None. In accordance with CT protocol optimization, one or more of the following dose reduction techniques were utilized for this exam: automated exposure control, adjustment of mA and/or KV based on patient size, or use of iterative reconstructive technique. FINDINGS: Parenchyma: No mass-effect or midline shift. No evidence for edema. No evidence for intracranial hemorrhage. Extraaxial Spaces: Normal for age. No subdural or epidural collections identified. Ventricles: Within normal limits for age. Mild prominence of the ventricles and sulci due to mild generalized cerebral atrophy. Sinuses and Orbits: Imaged paranasal sinuses, orbits, and mastoids show no significant abnormality. Bones: No evidence of fracture or calvarial defect. IMPRESSION: No acute or focal intracranial abnormalities seen. RADIA
[2019-09-10] MEDS ORDERED: BUTALB/ACETAM/CAFF 50/325/40MG TABLET PO STA (15:43)
[2019-09-10 15:58] VITALS: BP 123/76
== END 2019-09-10 16:00 | disposition home or self-care (01) ==
LOC: ED 13:04
DX: R51 Headache (principal); G62.9 Polyneuropathy, unspecified; I10 Essential (primary) hypertension
CPT/HCPCS: 36415; 70450; 80053; 80185; 81001; 83690; 85025; 99284; A9270; 81003; 87086

== ENCOUNTER 2019-09-22 14:32 | Outpatient (CLI) | payer MEDICARE, OTHER | END 2019-09-22 14:33 | disposition home or self-care (01) | LOC: LAB 14:32 | PROVIDERS: ATTEND Family Medicine | DX: R56.9 Unspecified convulsions (principal) | CPT/HCPCS: 36415; 80185 ==

== ENCOUNTER 2019-10-29 13:35 | Outpatient (CLI) | payer MEDICARE, OTHER | END 2019-10-29 13:36 | disposition home or self-care (01) | LOC: LAB 13:35 | PROVIDERS: ATTEND Family Medicine | DX: R56.9 Unspecified convulsions (principal) | CPT/HCPCS: 36415; 80185 ==

== ENCOUNTER 2019-11-04 12:21 | Outpatient (CLI) | payer MEDICARE, OTHER ==
--- NOTE | 2019-11-04 14:45 | MRI Report ---
Reason: SPINAL STENOSIS CERVICAL REGION Procedure Date: 11/04/2019 Accession Number: [id number] / [id number] Procedure: MRI - Cervical Spine W/O CPT Code: Final Report FULL RESULT: EXAM: MRI CERVICAL SPINE WITHOUT CONTRAST EXAM DATE: 11/04/2019 01:22 PM. CLINICAL HISTORY: Spinal stenosis cervical region. COMPARISONS: MRI C SPINE 08/15/2009 5:19 PM. XR CERVICAL SPINE MIN 4 VIEWS 08/10/2009 4:37 PM. TECHNIQUE: Multiplanar, multisequence T1-weighted and fluid-sensitive sequences of the cervical spine without contrast. Other: None. FINDINGS: Neurologic Structures: The visualized posterior fossa structures are unremarkable. No signal abnormality in the visualized spinal cord. Alignment: No scoliosis or spondylolisthesis. Bone Marrow: No gross fractures or bone lesions. No marrow edema. Interspace Levels/Facets: C1-C2: Unremarkable on sagittal series. C2-C3: Mild hypertrophy and osseous fusion of left facet joint is seen. Central osseous fusion of the right facet joint is noted. Minimal dorsal disk bulge and annular fissure. No stenosis. C3-C4: Right facet mild hypertrophy and osseous fusion is noted. Degenerative uncovertebral change is seen bilaterally with apparent osseous fusion at level of uncovertebral joints. Moderate bilateral foraminal stenosis. C4-C5: Moderate degenerative facet change is seen greater on the right. Loss of disk space height. Diskogenic endplate irregularity with Modic type I signal change. Mild broad-based dorsal subligamentous disk protrusion. Hypertrophic degenerative uncovertebral change. Patchy anterior protrusion of disk/osteophyte complex. Effacement of the thecal sac and spinal cord is noted with thinning of CSF surrounding the cord. Moderate canal stenosis. Marked bilateral foraminal stenosis. C5-C6: Loss of disk space height is seen. Diskogenic endplate irregularity with patchy signal abnormality. Mild broad-based dorsal subligamentous disk protrusion. Hypertrophic degenerative uncovertebral change. Patchy anterior protrusion of disk/osteophyte complex. Effacement of the thecal sac and spinal cord is noted with thinning of CSF surrounding the spinal cord. Moderate canal stenosis. Marked bilateral foraminal stenosis. C6-C7: Mild loss of disk space height. Dorsal subligamentous disk protrusion. Peripheral diskogenic endplate irregularity and signal abnormality. Patchy anterior protrusion of disk/osteophyte complex. Effacement of the thecal sac and spinal cord is noted with mild central canal stenosis. Mild bilateral foraminal stenosis. C7-T1: Unremarkable. Musculature: Normal. No edema or fatty atrophy. Other: The paravertebral and prevertebral soft tissues are normal. IMPRESSION: 1. Spondylosis throughout the cervical spine as noted above. This has progressed. 2. C3-C4: Bilateral moderate foraminal stenosis. 3. C4-C5: Moderate canal stenosis. Bilateral marked foraminal stenosis. 4. C5-C6: Moderate canal stenosis. Bilateral marked foraminal stenosis. 5. C6-C7: Mild canal stenosis. Bilateral mild foraminal stenosis. RADIA
== END 2019-11-04 12:22 | disposition home or self-care (01) ==
LOC: DI 12:21
PROVIDERS: ATTEND Orthopaedic Surgery
DX: M47.812 Spondylosis without myelopathy or radiculopathy, cervical region (principal); M50.221 Other cervical disc displacement at C4-C5 level; M48.02 Spinal stenosis, cervical region; M43.26 Fusion of spine, lumbar region; M50.321 Other cervical disc degeneration at C4-C5 level
CPT/HCPCS: 72141

== ENCOUNTER 2019-11-15 10:01 | Outpatient (CLI) | payer MEDICARE, OTHER | END 2019-11-15 10:02 | disposition home or self-care (01) | LOC: LAB 10:01 | PROVIDERS: ATTEND Family Medicine | DX: R56.9 Unspecified convulsions (principal) | CPT/HCPCS: 36415; 80185 ==

== ENCOUNTER 2019-12-24 13:31 | Outpatient (CLI) | payer MEDICARE, OTHER | END 2019-12-24 13:32 | disposition home or self-care (01) | LOC: LAB 13:31 | PROVIDERS: ATTEND Family Medicine | DX: R56.9 Unspecified convulsions (principal) | CPT/HCPCS: 36415; 80185 ==

== ENCOUNTER 2020-01-25 15:43 | Outpatient (CLI) | payer MEDICARE, OTHER | END 2020-01-25 15:44 | disposition home or self-care (01) | LOC: LAB 15:43 | PROVIDERS: ATTEND Family Medicine | DX: R56.9 Unspecified convulsions (principal) | CPT/HCPCS: 36415; 80185 ==

== ENCOUNTER 2020-02-25 14:54 | Outpatient (CLI) | payer MEDICARE, OTHER | END 2020-02-25 14:55 | disposition home or self-care (01) | LOC: LAB 14:54 | PROVIDERS: ATTEND Family Medicine | DX: R56.9 Unspecified convulsions (principal) | CPT/HCPCS: 36415; 80185 ==

== ENCOUNTER 2020-03-29 14:41 | Outpatient (CLI) | payer MEDICARE, OTHER ==
[2020-03-29 15:21] LABS: BASOPHILS % (AUTO) 0.3 %; EOSINOPHILS % (AUTO) 0.6 %; LYMPHOCYTES # (AUTO) 1.5 10^3/uL (1.5-3.5); LYMPHOCYTES % (AUTO) 21.7 %; MEAN CORPUSCULAR HEMOGLOBIN 33.3 pg (27.0-31.0); MEAN CORPUSCULAR HGB CONC 33.7 g/dL (32.0-36.0); MEAN CORPUSCULAR VOLUME 98.9 fL (80.0-94.0); MEAN PLATELET VOLUME 10.3 fL (7.4-11.4); MONOCYTES # (AUTO) 0.6 10^3/uL (0.0-1.0); MONOCYTES % (AUTO) 9.2 %; NEUTROPHILS # (AUTO) 4.7 10^3/uL (1.5-6.6); NEUTROPHILS % (AUTO) 67.9 %; PLT - PLATELET COUNT 287 10^3/uL (130-450); RED CELL DISTRIBUTION WIDTH 13.4 % (12.0-15.0); WHITE BLOOD COUNT 6.9 x10^3/uL (4.8-10.8)
== END 2020-03-29 14:42 | disposition home or self-care (01) ==
LOC: LAB 14:41
PROVIDERS: ATTEND Family Medicine
DX: R56.9 Unspecified convulsions (principal); M54.5 Low back pain
CPT/HCPCS: 36415; 80185; 85025

== ENCOUNTER 2020-04-12 08:00 | Outpatient (CLI) | payer MEDICARE, OTHER | END 2020-04-12 23:59 | disposition home or self-care (01) | LOC: LAB.R 08:00 | PROVIDERS: ATTEND Family Medicine | DX: U07.1 COVID-19 (principal) | CPT/HCPCS: 81599 ==

== ENCOUNTER 2020-05-26 15:46 | Outpatient (CLI) | payer MEDICARE, OTHER | END 2020-05-26 15:47 | disposition home or self-care (01) | LOC: LAB 15:46 | PROVIDERS: ATTEND Family Medicine | DX: R56.9 Unspecified convulsions (principal) | CPT/HCPCS: 36415; 80185 ==

== ENCOUNTER 2020-06-26 13:43 | Outpatient (CLI) | payer MEDICARE, OTHER | END 2020-06-26 13:44 | disposition home or self-care (01) | LOC: LAB 13:43 | PROVIDERS: ATTEND Family Medicine | DX: R56.9 Unspecified convulsions (principal) | CPT/HCPCS: 36415; 80185 ==

== ENCOUNTER 2020-07-31 15:37 | Outpatient (CLI) | payer MEDICARE, OTHER | END 2020-07-31 15:38 | disposition home or self-care (01) | LOC: LAB 15:37 | PROVIDERS: ATTEND Family Medicine | DX: R56.9 Unspecified convulsions (principal) | CPT/HCPCS: 36415; 80185 ==

== ENCOUNTER 2020-09-04 14:03 | Outpatient (CLI) | payer MEDICARE, OTHER | END 2020-09-04 14:04 | disposition home or self-care (01) | LOC: LAB 14:03 | PROVIDERS: ATTEND Family Medicine | DX: R56.9 Unspecified convulsions (principal) | CPT/HCPCS: 36415; 80185 ==

== ENCOUNTER 2020-09-26 13:58 | Outpatient (CLI) | payer MEDICARE, OTHER ==
[2020-09-26 18:08] LABS: BASOPHILS % (AUTO) 0.4 %; EOSINOPHILS # (AUTO) 0.1 10^3/uL (0.0-0.7); HGB - HEMOGLOBIN 13.1 g/dL (14.0-18.0); LYMPHOCYTES # (AUTO) 1.5 10^3/uL (1.5-3.5); LYMPHOCYTES % (AUTO) 17.8 %; MEAN CORPUSCULAR HEMOGLOBIN 32.6 pg (27.0-31.0); MEAN CORPUSCULAR HGB CONC 32.5 g/dL (32.0-36.0); MEAN CORPUSCULAR VOLUME 100.2 fL (80.0-94.0); MEAN PLATELET VOLUME 10.9 fL (7.4-11.4); MONOCYTES # (AUTO) 0.7 10^3/uL (0.0-1.0); MONOCYTES % (AUTO) 8.3 %; NEUTROPHILS # (AUTO) 5.9 10^3/uL (1.5-6.6); NEUTROPHILS % (AUTO) 72.3 %; PLT - PLATELET COUNT 347 10^3/uL (130-450); RED BLOOD COUNT 4.02 10^6/uL (4.70-6.10); RED CELL DISTRIBUTION WIDTH 14.1 % (12.0-15.0); WHITE BLOOD COUNT 8.2 x10^3/uL (4.8-10.8)
[2020-09-26 18:37] LABS: ALBUMIN 4.4 g/dL (3.2-5.5); ALBUMIN/GLOBULIN RATIO 1.5 (1.0-2.2); BILIRUBIN,TOTAL 0.4 mg/dL (0.2-1.0); CALCIUM 9.9 mg/dL (8.5-10.3); CREATININE 0.7 mg/dL (0.6-1.2); PHENYTOIN (DILANTIN) 16.6 ug/mL; TOTAL PROTEIN 7.4 g/dL (6.7-8.2)
== END 2020-09-26 23:59 | disposition home or self-care (01) ==
LOC: LAB.WCP 13:58
PROVIDERS: ATTEND Family Medicine
DX: G25.9 Extrapyramidal and movement disorder, unspecified (principal); D69.6 Thrombocytopenia, unspecified; G62.9 Polyneuropathy, unspecified; I10 Essential (primary) hypertension; K21.9 Gastro-esophageal reflux disease without esophagitis; D69.3 Immune thrombocytopenic purpura; G40.909 Epilepsy, unspecified, not intractable, without status epilepticus
CPT/HCPCS: 36415; 80053; 80185; 84443; 85025

== ENCOUNTER 2020-10-26 15:27 | Outpatient (CLI) | payer MEDICARE, OTHER | END 2020-10-26 15:28 | disposition home or self-care (01) | LOC: LAB 15:27 | PROVIDERS: ATTEND Family Medicine | DX: R56.9 Unspecified convulsions (principal) | CPT/HCPCS: 36415; 80185 ==

== ENCOUNTER → 2020-11-27 | Outpatient (CLI) | payer MEDICARE, OTHER | LOC: LAB 15:30 | PROVIDERS: ATTEND Family Medicine | DX: R56.9 Unspecified convulsions (principal) | CPT/HCPCS: 36415; 80185 ==

== ENCOUNTER 2020-12-27 15:10 | Outpatient (CLI) | payer MEDICARE, OTHER | END 2020-12-27 15:11 | disposition home or self-care (01) | LOC: LAB 15:10 | PROVIDERS: ATTEND Family Medicine | DX: R56.9 Unspecified convulsions (principal) | CPT/HCPCS: 36415; 80185 ==

== ENCOUNTER 2021-01-15 07:00 | Outpatient (CLI) | payer MEDICARE, OTHER | END 2021-01-15 23:59 | disposition home or self-care (01) | LOC: LAB 07:00 | PROVIDERS: ATTEND Family Medicine | DX: R56.9 Unspecified convulsions (principal) | CPT/HCPCS: 36415; 80185 ==

== ENCOUNTER 2021-02-09 08:00 | Outpatient (CLI) | payer MEDICARE, OTHER | END 2021-02-09 23:59 | disposition home or self-care (01) | LOC: LAB 08:00 | PROVIDERS: ATTEND Family Medicine | DX: R56.9 Unspecified convulsions (principal) | CPT/HCPCS: 36415; 80185 ==

== ENCOUNTER 2021-03-14 13:26 | Outpatient (CLI) | payer MEDICARE, OTHER | END 2021-03-14 13:27 | disposition home or self-care (01) | LOC: LAB 13:26 | PROVIDERS: ATTEND Family Medicine | DX: R56.9 Unspecified convulsions (principal) | CPT/HCPCS: 36415; 80185 ==

== ENCOUNTER 2021-04-16 12:35 | Outpatient (CLI) | payer MEDICARE, OTHER | END 2021-04-16 12:36 | disposition home or self-care (01) | LOC: LAB 12:35 | PROVIDERS: ATTEND Family Medicine | DX: R56.9 Unspecified convulsions (principal) | CPT/HCPCS: 36415; 80185 ==

== ENCOUNTER 2021-05-14 10:00 | Outpatient (CLI) | payer MEDICARE, OTHER | END 2021-05-14 23:59 | disposition home or self-care (01) | LOC: LAB 10:00 | PROVIDERS: ATTEND Family Medicine | DX: R56.9 Unspecified convulsions (principal) | CPT/HCPCS: 36415; 80185 ==

== ENCOUNTER 2021-06-18 15:13 | Outpatient (CLI) | payer MEDICARE, OTHER | END 2021-06-18 15:14 | disposition home or self-care (01) | LOC: LAB 15:13 | PROVIDERS: ATTEND Family Medicine | DX: R56.9 Unspecified convulsions (principal) | CPT/HCPCS: 36415; 80185 ==

== ENCOUNTER 2021-07-16 07:00 | Outpatient (CLI) | payer MEDICARE, OTHER | END 2021-07-16 23:59 | disposition home or self-care (01) | LOC: LAB 07:00 | PROVIDERS: ATTEND Family Medicine | DX: R56.9 Unspecified convulsions (principal) | CPT/HCPCS: 36415; 80185 ==

== ENCOUNTER 2021-08-20 14:43 | Outpatient (CLI) | payer MEDICARE, OTHER | END 2021-08-20 14:44 | disposition home or self-care (01) | LOC: LAB 14:43 | PROVIDERS: ATTEND Family Medicine | DX: R56.9 Unspecified convulsions (principal) | CPT/HCPCS: 36415; 80185 ==

== ENCOUNTER 2021-09-19 14:52 | Outpatient (CLI) | payer MEDICARE, OTHER | END 2021-09-19 14:53 | disposition home or self-care (01) | LOC: LAB 14:52 | PROVIDERS: ATTEND Family Medicine | DX: R56.9 Unspecified convulsions (principal) | CPT/HCPCS: 36415; 80185 ==

== ENCOUNTER 2021-10-24 14:32 | Outpatient (CLI) | payer MEDICARE, OTHER ==
[2021-10-24 15:10] LABS: BASOPHILS % (AUTO) 0.5 %; EOSINOPHILS # (AUTO) 0.1 10^3/uL (0.0-0.7); EOSINOPHILS % (AUTO) 0.9 %; HCT - HEMATOCRIT 35.1 % (42.0-52.0); HGB - HEMOGLOBIN 12.1 g/dL (14.0-18.0); LYMPHOCYTES # (AUTO) 1.9 10^3/uL (1.5-3.5); LYMPHOCYTES % (AUTO) 29.9 %; MEAN CORPUSCULAR HEMOGLOBIN 33.8 pg (27.0-31.0); MEAN CORPUSCULAR HGB CONC 34.5 g/dL (32.0-36.0); MEAN PLATELET VOLUME 9.6 fL (7.4-11.4); MONOCYTES # (AUTO) 0.6 10^3/uL (0.0-1.0); MONOCYTES % (AUTO) 9.8 %; NEUTROPHILS # (AUTO) 3.8 10^3/uL (1.5-6.6); NEUTROPHILS % (AUTO) 58.6 %; PLT - PLATELET COUNT 273 10^3/uL (130-450); RED BLOOD COUNT 3.58 10^6/uL (4.70-6.10); RED CELL DISTRIBUTION WIDTH 13.6 % (12.0-15.0); WHITE BLOOD COUNT 6.4 x10^3/uL (4.8-10.8)
[2021-10-24 15:42] LABS: THYROID STIMULATING HORMONE 2.13 uIU/mL (0.34-5.60)
[2021-10-24 15:56] LABS: ALBUMIN/GLOBULIN RATIO 1.3 (1.0-2.2); ALKALINE PHOSPHATASE 73 IU/L (42-121); ALT ALANINE AMINOTRANSFERASE 19 IU/L (10-60); AST ASPARTATE AMINOTRANSFERASE 22 IU/L (10-42); BILIRUBIN,TOTAL 0.5 mg/dL (0.2-1.0); BUN - BLOOD UREA NITROGEN 25 mg/dL (6-20); CALCIUM 9.5 mg/dL (8.5-10.3); CARBON DIOXIDE - CO2 26 mmol/L (21-32); CHLORIDE 99 mmol/L (101-111); CHOL/HDL RATIO 3.2 (<5.0); CHOLESTEROL 185 mg/dL; CREATININE 0.6 mg/dL (0.6-1.2); GFR - MDRD 129 (>89); GLUCOSE 102 mg/dL (70-100); HDL CHOLESTEROL 58 mg/dL; LDL CHOLESTEROL,CALCULATED 98 mg/dL; LDL/HDL RATIO 1.7 (<3.6); PHENYTOIN (DILANTIN) 12.7 ug/mL; POTASSIUM 4.2 mmol/L (3.5-5.0); SODIUM 134 mmol/L (135-145); TRIGLYCERIDES 147 mg/dL; VLDL CHOLESTEROL 29 mg/dL
== END 2021-10-24 14:33 | disposition home or self-care (01) ==
LOC: LAB 14:32
PROVIDERS: ATTEND Family Medicine
DX: K21.9 Gastro-esophageal reflux disease without esophagitis (principal); M17.0 Bilateral primary osteoarthritis of knee; G62.9 Polyneuropathy, unspecified; G47.33 Obstructive sleep apnea (adult) (pediatric); E78.5 Hyperlipidemia, unspecified; I10 Essential (primary) hypertension; R56.9 Unspecified convulsions
CPT/HCPCS: 36415; 80053; 80061; 80185; 83721; 84443; 85025

== ENCOUNTER 2021-11-29 13:17 | Inpatient (IN) | payer MEDICARE, OTHER ==
[2021-11-29 13:59] LABS: BASOPHILS % (AUTO) 0.2 %; EOSINOPHILS % (AUTO) 0.1 %; HGB - HEMOGLOBIN 13.5 g/dL (14.0-18.0); LYMPHOCYTES # (AUTO) 1.1 10^3/uL (1.5-3.5); LYMPHOCYTES % (AUTO) 8.9 %; MEAN CORPUSCULAR HEMOGLOBIN 33.8 pg (27.0-31.0); MEAN CORPUSCULAR HGB CONC 34.6 g/dL (32.0-36.0); MEAN CORPUSCULAR VOLUME 97.5 fL (80.0-94.0); MEAN PLATELET VOLUME 10.6 fL (7.4-11.4); MONOCYTES # (AUTO) 0.8 10^3/uL (0.0-1.0); MONOCYTES % (AUTO) 6.4 %; NEUTROPHILS # (AUTO) 10.6 10^3/uL (1.5-6.6); NEUTROPHILS % (AUTO) 84.2 %; RED CELL DISTRIBUTION WIDTH 13.8 % (12.0-15.0); WHITE BLOOD COUNT 12.6 x10^3/uL (4.8-10.8)
[2021-11-29 14:02] LABS: ALBUMIN 4.4 g/dL (3.2-5.5); ALBUMIN/GLOBULIN RATIO 1.4 (1.0-2.2); BILIRUBIN,TOTAL 1.1 mg/dL (0.2-1.0); CALCIUM 10.4 mg/dL (8.5-10.3); CREATININE 0.8 mg/dL (0.6-1.2); PHENYTOIN (DILANTIN) 14.6 ug/mL; POTASSIUM 4.1 mmol/L (3.5-5.0); TOTAL PROTEIN 7.5 g/dL (6.7-8.2)
[2021-11-29 14:03] LABS: SLIDE REVIEW? Indicated
[2021-11-29 14:25] LABS: PLATELET ESTIMATE, MANUAL NORMAL (130-450,000) (NORMAL); PLATELET MORPHOLOGY PLATELET CLUMPING (NORMAL); RBC MORPHOLOGY (MULTIPLE) NORMAL APPEARANCE (NORMAL)
[2021-11-29 15:07] LABS: BILIRUBIN,URINE NEGATIVE (NEGATIVE); GLUCOSE, URINE (UA) NEGATIVE (NEGATIVE); KETONES,URINE (UA) NEGATIVE (NEGATIVE); LEUKOCYTE ESTERASE, URINE NEGATIVE (NEGATIVE); NITRITE,URINE NEGATIVE (NEGATIVE); OCCULT BLOOD,URINE TRACE-INTA (NEGATIVE); PH,URINE 7.5 PH (5.0-7.5); PROTEIN,URINE NEGATIVE (NEGATIVE); UROBILINOGEN,URINE 0.2 (NORMAL) E.U./dL (NORMAL)
[2021-11-29 15:17] LABS: CLARITY,URINE CLEAR (CLEAR)
[2021-11-29] MEDS ORDERED: HYDROmorphone 1 MG/ML CARPUJECT IVP STA ×2 (15:32→18:40)
[2021-11-29] MEDS ORDERED: IOVERSOL 320 100 ML VIAL IVP ONE ×2 (15:47→16:06)
--- NOTE | 2021-11-29 16:15 | CT Report ---
PROCEDURE: Abdomen/Pelvis W INDICATIONS: LLQ abd pain CONTRAST: IV CONTRAST: Optiray 320 ml: 100 PO CONTRAST: *NO PO CONTRAST TECHNIQUE: After the administration of IV contrast, 5 mm thick sections acquired from the diaphragms to the symp hysis. 5 mm thick coronal and sagittal reformats were acquired. For radiation dose reduction, the f ollowing was used: automated exposure control, adjustment of mA and/or kV according to patient size. COMPARISON: CT abdomen pelvis 07/16/2019 FINDINGS: Image quality: There is limited visualization of the pelvis secondary to artifact from hip arthropla sty. ABDOMEN: Lung bases: Lung bases are clear. Heart size is normal. Solid organs: Liver and spleen are normal in size and enhancement. Gallbladder has been removed. B iliary system is non dilated. Pancreas enhances normally. No adrenal nodules. Kidneys demonstrate normal size and enhancement, without hydronephrosis. Peritoneum and bowel: There are dilated fluid-filled loops of small bowel largest measuring 3.5 cm in greatest AP dimension. Transition point appears to be within the mid abdomen. Anastomotic sutures ar e noted within the left colon. Nodes and vessels: No retroperitoneal or mesenteric adenopathy by size criteria. Aorta and inferior vena cava are normal in size. Miscellaneous: No ventral hernias. PELVIS: Genitourinary: Bladder wall thickness is normal. Miscellaneous: Fat-containing left inguinal hernia. Bones: No suspicious bony lesions. No vertebral body compression fractures. IMPRESSION: Partial small bowel obstruction as described above. No free fluid or free air. Reviewed by: Елена Muñoz MD on 11/29/2021 4:13 PM PST Approved by: Елена Muñoz MD on 11/29/2021 4:13 PM PST Station ID: [id number]
[2021-11-29] MEDS ORDERED: SODIUM CHLORIDE 0.9% 1,000 ML IV STA (16:42)
--- NOTE | 2021-11-29 16:45 | ED Physician Documentation ---
History of Present Illness - Stated complaint Stated Complaint: STOMACH PX - Chief complaint Chief Complaint: Abd Pain - History obtained from History obtained from: Patient - History of Present Illness Timing: Today Pain level max: 8 Pain level now: 6 - Additonal information Additional information: Is an 81-year-old male who presents with diffuse abdominal pain, worse in the left lower quadrant. Started about 12 hours ago and is gradually been worsening. He takes oxycodone at home for pain. He has had an appendectomy, cholecystectomy, splenectomy and partial colectomy. No vomiting. No diarrhea. Has had occasional constipation. Review of Systems Ten Systems: 10 systems reviewed and negative Constitutional: denies: Fever, Chills Nose: denies: Rhinorrhea / runny nose, Congestion Respiratory: denies: Cough GI: denies: Vomiting, Hematemesis, Bloody / black stool Skin: denies: Rash Musculoskeletal: denies: Neck pain, Back pain Neurologic: denies: Headache PD PAST MEDICAL HISTORY - Past Medical History Past Medical History: Yes Cardiovascular: Hypertension Respiratory: Sleep apnea Neuro: Seizure disorder Endocrine/Autoimmune: None GI: GERD, Pancreatitis : Kidney stones, Other HEENT: Chronic hearing loss, Other Psych: Anxiety Musculoskeletal: Osteoarthritis, Chronic back pain, Other Derm: Psoriasis - Past Surgical History Past Surgical History: Yes General: Cholecystectomy, Appendectomy, Bowel surgery, Splenectomy Ortho: Hip replacement, Arthroscopic surgery HEENT: Tonsil/Adenoidectomy, Other - Present Medications Home Medications: Ambulatory Orders Medication Instructions Recorded Confirmed Aspirin EC [Ecotrin] 81 mg PO DAILY 06/27/13 11/29/21 Vit A,C & E/Lutein/Minerals 1 each PO DAILY 06/27/13 11/29/21 [Ocuvite with Lutein Tablet] Cyanocobalamin (Vitamin B-12) 1,000 mcg PO DAILY 02/09/14 11/29/21 [Vitamin B-12] Cholecalciferol (Vitamin D3) 2,000 units ORAL DAILY 05/03/14 11/29/21 [Vitamin D3] levOCARNitine tartrate 250 mg PO BID 05/09/18 11/29/21 [l-Carnitine] polyethylene glycoL 3350 [Miralax] 17 gm PO DAILY 01/06/19 11/29/21 Finasteride 5 mg PO DAILY PM 02/21/19 11/29/21 Mirabegron [Myrbetriq] 50 mg PO DAILY PM 02/21/19 11/29/21 Famotidine [Pepcid] 20 mg PO BID 07/28/19 11/29/21 Phenytoin Infatab [Dilantin 50 mg PO QPM 07/28/19 11/29/21 Infatab] Phenytoin [Dilantin] 200 mg PO DAILY PM 07/28/19 11/29/21 [place]-3/Dha/Epa/Fish Oil [Fish Oil 1,000 mg PO DAILY 11/29/21 11/29/21 1,000 mg Softgel] Oxycodone Myristate [Xtampza ER] 13.5 mg PO DAILY 11/29/21 11/29/21 oxyCODONE ER [OxyCONTIN] 5 mg ORAL TID PRN 11/29/21 11/29/21 - Allergies Allergies/Adverse Reactions: Allergies Allergy/AdvReac Type Severity Reaction Status Date / Time amitriptyline [Amitriptyline] Allergy Intermediate Hallucinati Verified 11/29/21 13:30 ons heparinoids Allergy Intermediate Rash Verified 11/29/21 13:30 baclofen Allergy Unknown Verified 11/29/21 13:30 celecoxib Allergy Unknown Verified 11/29/21 13:30 diphenhydramine Allergy paradoxical Verified 11/29/21 13:30 reaction divalproex sodium Allergy pancreatiti Verified 11/29/21 13:30 [From Depakote] s glucosamine Allergy Unknown Verified 11/29/21 13:30 naproxen Allergy GI pain Verified 11/29/21 13:30 oxcarbazepine Allergy Unknown Verified 11/29/21 13:30 [From Trileptal] pregabalin [From Lyrica] Allergy pancreatiti Verified 11/29/21 13:30 s - Social History Does the pt smoke?: No Smoking Status: Never smoker Does the pt drink ETOH?: Yes Does the pt have substance abuse?: No - Immunizations Immunizations are current?: Yes - POLST Patient has POLST: No PD ED PE NORMAL - Vitals Vital signs reviewed: Yes - General General: Alert and oriented X 3, No acute distress, Well developed/nourished - HEENT HEENT: Moist mucous membranes - Neck Neck: Supple, no meningeal sign - Cardiac Cardiac: RRR, Strong equal pulses - Respiratory Respiratory: No respiratory distress, Clear bilaterally - Abdomen Abdomen: Soft, Non distended, Other (Mild distention. Tenderness palpation left lower quadrant. No peritoneal signs) - Derm Derm: Warm and dry - Extremities Extremities: No edema - Neuro Neuro: Alert and oriented X 3 - Psych Psych: Normal mood, Normal affect Results - Vitals Vitals: Vital Signs - 24 hr 11/29/21 11/29/21 11/29/21 13:23 15:21 17:00 Temperature 36.2 C L Heart Rate 75 68 72 Respiratory 16 18 18 Rate Blood Pressure 153/75 H 152/72 H 145/109 H O2 Saturation 96 92 97 Oxygen O2 Source Room air - Labs Labs: Laboratory Tests 11/29/21 11/29/21 11/29/21 13:45 13:45 14:57 WBC 12.6 H RBC 4.00 L Hgb 13.5 L Hct 39.0 L MCV 97.5 H MCH 33.8 H MCHC 34.6 RDW 13.8 Plt Count MPV 10.6 Neut # (Auto) 10.6 H Lymph # (Auto) 1.1 L [place] # (Auto) 0.8 Eos # (Auto) 0.0 Baso # (Auto) 0.0 Absolute Nucleated RBC 0.00 Nucleated RBC % 0.0 Manual Slide Review Indicated Platelet Estimate NORMAL (130-450,000) Platelet Morphology PLATELET CLUMPING RBC Morph Micro Appear NORMAL APPEARANCE Sodium 136 Potassium 4.1 Chloride 100 L Carbon Dioxide 28 Anion Gap 8.0 BUN 23 H Creatinine 0.8 Estimated GFR (MDRD) 93 Glucose 110 H Calcium 10.4 H Total Bilirubin 1.1 H AST 24 ALT 17 Alkaline Phosphatase 75 Total Protein 7.5 Albumin 4.4 Globulin 3.1 Albumin/Globulin Ratio 1.4 Lipase 22 Urine Color YELLOW Urine Clarity CLEAR Urine pH 7.5 Ur Specific [place] 1.010 Urine Protein NEGATIVE Urine Glucose (UA) NEGATIVE Urine Ketones NEGATIVE Urine Occult Blood TRACE-INTA Urine Nitrite NEGATIVE Urine Bilirubin NEGATIVE Urine Urobilinogen 0.2 (NORMAL) Ur Leukocyte Esterase NEGATIVE Ur Microscopic Review NOT INDICATED Urine Culture Comments NOT INDICATED Nasal Adenovirus (PCR) Nasal B. parapertussis DNA (PCR) Nasal Coronavir 229E PCR Nasal Coronavir HKU1 PCR Nasal Coronavir NL63 PCR Nasal Coronavir OC43 PCR Nasal Enterovir/Rhinovir PCR Nasal Influenza B PCR Nasal Influenza A PCR Nasal Parainfluen 1 PCR Nasal Parainfluen 2 PCR Nasal Parainfluen 3 PCR Nasal Parainfluen 4 PCR Nasal RSV (PCR) Nasal B.pertussis DNA PCR Nasal C.pneumoniae (PCR) Paul Human Metapneumo PCR Nasal M.pneumoniae (PCR) Nasal SARS-CoV-2 (PCR) Phenytoin 14.6 11/29/21 17:10 WBC RBC Hgb Hct MCV MCH MCHC RDW Plt Count MPV Neut # (Auto) Lymph # (Auto) [place] # (Auto) Eos # (Auto) Baso # (Auto) Absolute Nucleated RBC Nucleated RBC % Manual Slide Review Platelet Estimate Platelet Morphology RBC Morph Micro Appear Sodium Potassium Chloride Carbon Dioxide Anion Gap BUN Creatinine Estimated GFR (MDRD) Glucose Calcium Total Bilirubin AST ALT Alkaline Phosphatase Total Protein Albumin Globulin Albumin/Globulin Ratio Lipase Urine Color Urine Clarity Urine pH Ur Specific [place] Urine Protein Urine Glucose (UA) Urine Ketones Urine Occult Blood Urine Nitrite Urine Bilirubin Urine Urobilinogen Ur Leukocyte Esterase Ur Microscopic Review Urine Culture Comments Nasal Adenovirus (PCR) NOT DETECTED Nasal B. parapertussis DNA (PCR) NOT DETECTED Nasal Coronavir 229E PCR NOT DETECTED Nasal Coronavir HKU1 PCR NOT DETECTED Nasal Coronavir NL63 PCR NOT DETECTED Nasal Coronavir OC43 PCR NOT DETECTED Nasal Enterovir/Rhinovir PCR NOT DETECTED Nasal Influenza B PCR NOT DETECTED Nasal Influenza A PCR NOT DETECTED Nasal Parainfluen 1 PCR NOT DETECTED Nasal Parainfluen 2 PCR NOT DETECTED Nasal Parainfluen 3 PCR NOT DETECTED Nasal Parainfluen 4 PCR NOT DETECTED Nasal RSV (PCR) NOT DETECTED Nasal B.pertussis DNA PCR NOT DETECTED Nasal C.pneumoniae (PCR) NOT DETECTED Paul Human Metapneumo PCR NOT DETECTED Nasal M.pneumoniae (PCR) NOT DETECTED Nasal SARS-CoV-2 (PCR) NOT DETECTED Phenytoin - Rads (name of study) CT abdomen and pelvis Radiology: Final report received, EMP read contemporaneously, See rad report (Partial small bowel obstruction as described above. No free fluid or free air. ) PD MEDICAL DECISION MAKING - ED course Complexity details: reviewed results, re-evaluated patient, considered differential, d/w patient, d/w strategic solutions consultant ED course: 81-year-old male with what appears to be a partial small bowel obstruction. Pain well controlled with Dilaudid but is requiring multiple IV doses. We will place him on IV fluids and bowel rest. Not actively vomiting. We will hold off on NG tube. Discussed the case with Dr. Neal, general surgery who will follow along. We will admit to Dr. Mancini, hospitalist who accepts. Patient will be placed in observation. This document was made in part using voice recognition software. While efforts are made to proofread this document, sound alike and grammatical errors may occur. Departure - Departure Disposition: ED Place in Observation Clinical Impression: Small bowel obstruction, partial Condition: Stable Discharge Date/Time: 11/29/21 18:56
[2021-11-29] MEDS ORDERED: SODIUM CHLORIDE FLUSH 0.9% 10 ML SYRINGE IVP PRN (18:16)
[2021-11-29 18:17] LABS: B. PARAPERTUSSIS- RESP PCR PAN NOT DETECTED; B. PERTUSSIS- RESP PCR PANEL NOT DETECTED; C. PNEUMONIAE- RESP PCR PANEL NOT DETECTED; CORONAVIRUS 229E-RESP PCR NOT DETECTED; CORONAVIRUS HKU1-RESP PCR NOT DETECTED; CORONAVIRUS NL63-RESP PCR NOT DETECTED; CORONAVIRUS OC43-RESP PCR NOT DETECTED; HUMAN METAPNEUMOVIRUS NOT DETECTED; INFLUENZA A- RESP PCR PANEL NOT DETECTED; INFLUENZA B - RESP PCR PANEL NOT DETECTED; M. PNEUMONIAE- RESP PCR PANEL NOT DETECTED; PARAINFLUENZA VIRUS 1 NOT DETECTED; PARAINFLUENZA VIRUS 2 NOT DETECTED; PARAINFLUENZA VIRUS 3 NOT DETECTED; PARAINFLUENZA VIRUS 4 NOT DETECTED; RHINOVIRUS/ENTEROVIRUS NOT DETECTED; RSV- RESP PCR PANEL NOT DETECTED; SARS-CoV-2 -RESP PCR PANEL NOT DETECTED
--- NOTE | 2021-11-29 19:20 | HISTORY & PHYSICAL EXAMINATION ---
Chief Complaint - Chief Complaint Chief Complaint: generalized abdominal pain History of Present Illness - Admitted From Admitted From:: [facility] ED - History Obtained From Records Reviewed: yes History obtained from: patient - History of Present Illness HPI Comment/Other: Patient is an 81-year-old male who presented to the ED with abdominal pain. This started around 3 AM. By breakfast his pain was about 6 out of 10 scale as a result he came to the ED for evaluation around 2 PM. The abdominal pain is generalized. It is worse with laying down. His last bowel movement was around 9 AM this morning. He reports nothing out of the ordinary regarding it. He was ate at breakfast when he had cream of wheat and coffee. Currently he denies chest pain, dyspnea, fever, chills, nausea or vomiting. He also rates his abdominal pain 3 out of 10. He appears to be resting comfortably. Work-up in the ED included a CT of the abdomen/pelvis which showed a partial small bowel obstruction. As a result he is being admitted for further managemen t. History - Past Medical History Cardiovascular: reports: Hypertension Respiratory: reports: Sleep apnea Neuro: reports: Seizure disorder Endocrine/Autoimmune: reports: None GI: reports: GERD, Pancreatitis : reports: Kidney stones, Other HEENT: reports: Chronic hearing loss, Other Psych: reports: Anxiety Musculoskeletal: reports: Osteoarthritis, Chronic back pain, Other Derm: reports: Psoriasis MRSA Hx?: Yes - Past Surgical History General: reports: Cholecystectomy, Appendectomy, Bowel surgery, Splenectomy Ortho: reports: Hip replacement, Arthroscopic surgery HEENT: reports: Tonsil/Adenoidectomy, Other - Family & Social History Family History Comment/Other: Patient's father had Parkinson's disease. His mother from an unspecified cancer. His brother from pancreatic cancer. He has 3 children who are healthy. Social History Notes: He lives at home with his . He is independent of activities of daily living. He gets around using a walker. His physical activity has steadily decreased over the past years due to osteoarthritis. He does not consume tobacco or alcohol products. He uses CBD/THC products. - POLST Patient has POLST: No POLST Status: Full Code Meds/Allgy - Home Medications Home Medications: Ambulatory Orders Medication Instructions Recorded Confirmed Aspirin EC [Ecotrin] 81 mg PO DAILY 06/27/13 11/29/21 Vit A,C & E/Lutein/Minerals 1 each PO DAILY 06/27/13 11/29/21 [Ocuvite with Lutein Tablet] Cyanocobalamin (Vitamin B-12) 1,000 mcg PO DAILY 02/09/14 11/29/21 [Vitamin B-12] Cholecalciferol (Vitamin D3) 2,000 units ORAL DAILY 05/03/14 11/29/21 [Vitamin D3] levOCARNitine tartrate 250 mg PO BID 05/09/18 11/29/21 [l-Carnitine] polyethylene glycoL 3350 [Miralax] 17 gm PO DAILY 01/06/19 11/29/21 Finasteride 5 mg PO DAILY PM 02/21/19 11/29/21 Mirabegron [Myrbetriq] 50 mg PO DAILY PM 02/21/19 11/29/21 Famotidine [Pepcid] 20 mg PO BID 07/28/19 11/29/21 Phenytoin Infatab [Dilantin 50 mg PO QPM 07/28/19 11/29/21 Infatab] Phenytoin [Dilantin] 200 mg PO DAILY PM 07/28/19 11/29/21 [place]-3/Dha/Epa/Fish Oil [Fish Oil 1,000 mg PO DAILY 11/29/21 11/29/21 1,000 mg Softgel] Oxycodone Myristate [Xtampza ER] 13.5 mg PO DAILY 11/29/21 11/29/21 oxyCODONE ER [OxyCONTIN] 5 mg ORAL TID PRN 11/29/21 11/29/21 - Allergies Allergies/Adverse Reactions: Allergies Allergy/AdvReac Type Severity Reaction Status Date / Time amitriptyline [Amitriptyline] Allergy Intermediate Hallucinati Verified 11/29/21 13:30 ons heparinoids Allergy Intermediate Rash Verified 11/29/21 13:30 baclofen Allergy Unknown Verified 11/29/21 13:30 celecoxib Allergy Unknown Verified 11/29/21 13:30 diphenhydramine Allergy paradoxical Verified 11/29/21 13:30 reaction divalproex sodium Allergy pancreatiti Verified 11/29/21 13:30 [From Depakote] s glucosamine Allergy Unknown Verified 11/29/21 13:30 naproxen Allergy GI pain Verified 11/29/21 13:30 oxcarbazepine Allergy Unknown Verified 11/29/21 13:30 [From Trileptal] pregabalin [From Lyrica] Allergy pancreatiti Verified 11/29/21 13:30 s Review of Systems - Constitutional Constitutional: denies: Fatigue, Fever, Chills - Eyes Eyes: denies: Pain, Dipolpia - Ears, Nose & Throat Ears, Nose & Throat: denies: Ear pain, Sore throat - Cardiovascular Cariovascular: denies: Palpitations, Chest pain, Edema, Lightheadedness, Syncope - Respiratory Respiratory: denies: Cough, Sputum production, Wheezing, SOB at rest, SOB with exertion - Gastrointestinal Gastrointestinal: reports: Abdominal pain, Bloating. denies: Constipation, Nausea, Vomiting - Genitourinary Genitourinary: denies: Dysuria, Frequency, Urgency, Hematuria - Musculoskeletal Musculoskeletal: reports: Back pain, Joint pain - Integumentary Integumentary: denies: Rash, Pruritis, Lesions - Neurological Neurological: denies: General weakness, Focal weakness, Headache, Dizziness - Psychiatric Psychiatric: denies: Depression, Anxiety - Endocrine Endocrine: denies: Polyuria, Polydypsia - Hematologic/Lymphatic Hematologic/Lymphatic: denies: Anemia, Bruising, Petechiae Prior Level of Functionality: He is fairly independent of activities of daily living. He does the cooking at home but is unable to stand for longer than 5 minutes at a time. He gets around using a walker. He has osteoarthritis which has steadily limited his level of activity over the past years. He lives at home with his . Exam - Vital Signs Vital Signs: Vital Signs x48h Temp Pulse Pulse Resp BP BP Pulse Ox 11/29/21 19:10 37.3 C 68 16 171/68 H 100 11/29/21 17:00 72 18 145/109 H 97 11/29/21 15:21 68 18 152/72 H 92 11/29/21 13:23 36.2 C L 75 16 153/75 H 96 - Physical Exam General Appearance: positive: Alert, Mild distress, Moderate distress Eyes Bilateral: positive: PERRL, EOMI ENT: positive: No signs of dehydration Neck: positive: No JVD, Trachea midline Respiratory: positive: Chest non-tender, No respiratory distress, Breath sounds nml. negative: Wheezes, Rales, Rhonchi Cardiovascular: positive: Regular rate & rhythm, No murmur Abdomen: positive: Tenderness. negative: Guarding, Rebound Back: positive: Nml inspection Skin: positive: Color nml, No rash, Warm, Dry Extremities: positive: Non-tender, No pedal edema Neurologic/Psychiatric: positive: Oriented x3, Mood/affect nml Conclusion/Plan - Problem List (1) Small bowel obstruction, partial Conclusion/Plan: Patient made n.p.o. except for ice chips and sips IV hydration with normal saline. Pain management with Dilaudid 1mg q2hrs as needed. (2) Leukocytosis Conclusion/Plan: Reactive versus infectious. WBC was 12. Will monitor. If further elevated and patient becomes febrile, will obtain blood cultures (3) Seizure disorder Conclusion/Plan: On phenytoin. We will switch to IV with pharmacy to monitor levels. (4) BPH (benign prostatic hyperplasia) Conclusion/Plan: Will resume finasteride when patient able to tolerate p.o. (5) HTN (hypertension) Conclusion/Plan: Hydralazine 10 mg every 4 hours as needed for systolic blood pressure greater than 160. - Lab Results Fish Bones: 11/30/21 04:14 11/30/21 04:14 Core Measures - Anticipated LOS I expect patient to be DC'd or transferred within 96 hours.: Yes - DVT/VTE - Prophylaxis VTE/DVT Device ordered at admit?: Yes VTE/DVT Prophylaxis med ordered at admit?: Yes
[2021-11-29] MEDS: D5NS W/20 MEQ KCL 1,000 ML IV SCH (19:21)
[2021-11-29] MEDS: HYDROmorphone 0.5 MG/0.5 ML SYRINGE IVP PRN ×3 (19:59→23:36)
--- NOTE | 2021-11-29 20:24 | CONSULTATION NOTE ---
Referring Provider Consult Date: 11/29/21 Chief Complaint - Chief Complaint Chief Complaint: abdominal pain History of Present Illness - Admitted From Admitted From:: ED - History Obtained From Records Reviewed: yes History obtained from: pt Exam Limitations: none - History of Present Illness HPI Comment/Other: He describes intermittent mild symptoms of small bowel obstruction over the last year. He developed progressive abdominal pain 3 am today. Pain little better now. He denies n/v. Last bm/ flatus this am. He has extensive past medical history and past surgical history. Last abdominal surgery he believes was at [facility]. PSH includes splenectomy, cholecystectomy, bowel obstruction due to mesh requiring bowel resection. History - Past Medical History Cardiovascular: reports: Hypertension Respiratory: reports: Sleep apnea Neuro: reports: Seizure disorder Endocrine/Autoimmune: reports: None GI: reports: GERD, Pancreatitis : reports: Kidney stones, Other HEENT: reports: Chronic hearing loss, Other Psych: reports: Anxiety Musculoskeletal: reports: Osteoarthritis, Chronic back pain, Other Derm: reports: Psoriasis MRSA Hx?: Yes - Past Surgical History General: reports: Cholecystectomy, Appendectomy, Bowel surgery, Splenectomy Ortho: reports: Hip replacement, Arthroscopic surgery HEENT: reports: Tonsil/Adenoidectomy, Other - Family & Social History Family History Comment/Other: Patient's father had Parkinson's disease. His mother from an unspecified cancer. His brother from pancreatic cancer. He has 3 children who are healthy. Social History Notes: He lives at home with his . He is independent of activities of daily living. He gets around using a walker. His physical activity has steadily decreased over the past years due to osteoarthritis. He does not consume tobacco or alcohol products. He uses CBD/THC products. - POLST Patient has POLST: No POLST Status: Full Code Meds/Allgy - Home Medications Home Medications: Ambulatory Orders Medication Instructions Recorded Confirmed Aspirin EC [Ecotrin] 81 mg PO DAILY 06/27/13 11/29/21 Vit A,C & E/Lutein/Minerals 1 each PO DAILY 06/27/13 11/29/21 [Ocuvite with Lutein Tablet] Cyanocobalamin (Vitamin B-12) 1,000 mcg PO DAILY 02/09/14 11/29/21 [Vitamin B-12] Cholecalciferol (Vitamin D3) 2,000 units ORAL DAILY 05/03/14 11/29/21 [Vitamin D3] levOCARNitine tartrate 250 mg PO BID 05/09/18 11/29/21 [l-Carnitine] polyethylene glycoL 3350 [Miralax] 17 gm PO DAILY 01/06/19 11/29/21 Finasteride 5 mg PO DAILY PM 02/21/19 11/29/21 Mirabegron [Myrbetriq] 50 mg PO DAILY PM 02/21/19 11/29/21 Famotidine [Pepcid] 20 mg PO BID 07/28/19 11/29/21 Phenytoin Infatab [Dilantin 50 mg PO QPM 07/28/19 11/29/21 Infatab] Phenytoin [Dilantin] 200 mg PO DAILY PM 07/28/19 11/29/21 [place]-3/Dha/Epa/Fish Oil [Fish Oil 1,000 mg PO DAILY 11/29/21 11/29/21 1,000 mg Softgel] Oxycodone Myristate [Xtampza ER] 13.5 mg PO DAILY 11/29/21 11/29/21 oxyCODONE ER [OxyCONTIN] 5 mg ORAL TID PRN 11/29/21 11/29/21 - Allergies Allergies/Adverse Reactions: Allergies Allergy/AdvReac Type Severity Reaction Status Date / Time amitriptyline [Amitriptyline] Allergy Intermediate Hallucinati Verified 11/29/21 13:30 ons heparinoids Allergy Intermediate Rash Verified 11/29/21 13:30 baclofen Allergy Unknown Verified 11/29/21 13:30 celecoxib Allergy Unknown Verified 11/29/21 13:30 diphenhydramine Allergy paradoxical Verified 11/29/21 13:30 reaction divalproex sodium Allergy pancreatiti Verified 11/29/21 13:30 [From Depakote] s glucosamine Allergy Unknown Verified 11/29/21 13:30 naproxen Allergy GI pain Verified 11/29/21 13:30 oxcarbazepine Allergy Unknown Verified 11/29/21 13:30 [From Trileptal] pregabalin [From Lyrica] Allergy pancreatiti Verified 11/29/21 13:30 s Review of Systems - Other Findings Other Findings: 10 pt ros as above otherwise unremarkable Exam - Vital Signs Reviewed Vital Signs: Yes Vital Signs: Vital Signs x48h Temp Pulse Pulse Resp BP BP Pulse Ox 11/29/21 19:10 37.3 C 68 16 171/68 H 100 11/29/21 17:00 72 18 145/109 H 97 11/29/21 15:21 68 18 152/72 H 92 11/29/21 13:23 36.2 C L 75 16 153/75 H 96 - Physical Exam General Appearance: positive: No acute distress, Alert Eyes Bilateral: positive: PERRL, EOMI, No scleral icterus ENT: positive: No signs of dehydration Neck: positive: No JVD Respiratory: positive: No respiratory distress, Breath sounds nml Cardiovascular: positive: Regular rate & rhythm Abdomen: positive: Non-tender, No distention, Other (midline scar present without recurrent hernia) Neurologic/Psychiatric: positive: Oriented x3 Conclusion/Plan - Lab Results Fish Bones: 11/29/21 13:45 11/29/21 13:45 - Diagnostic Imaging Results Diagnostic Imaging Results: positive: Read independently (progressive partial distal sbo over the last couple years at stapled anastomosis in the rlq) - Other Other Results/Comments: progressive distal partial sbo at stapled anastomosis in the right lower quadrant. he has an extensive pmh and psh including multiple laparotomies, removal of mesh and revision incisional hernia repair. past surgical records would be helpful. urgent surgery not needed. recommend low fiber diet until small bowel anastomosis revised npo until pain resolved and then clears he is not an ideal surgical candidate for [facility] given chronic pain and poor mobility. consider outpatient referral to surgeon that works out of a hospital that can offer a higher level of care. if he is not improving consider small bowel anastomosis revision here at [facility]. will further discuss this with him tomorrow.
[2021-11-29] MEDS ORDERED: hydrALAZINE INJ 20 MG/ML VIAL IVP PRN (20:36)
[2021-11-29] MEDS: ONDANSETRON 4 MG/2 ML VIAL IVP PRN (20:56)
[2021-11-30] MEDS: SODIUM CHLORIDE FLUSH 0.9% 10 ML SYRINGE IVP SCH ×4 (00:05→23:30)
[2021-11-30] MEDS: HYDROmorphone 0.5 MG/0.5 ML SYRINGE IVP PRN ×3 (02:46→13:41)
[2021-11-30] MEDS: ONDANSETRON 4 MG/2 ML VIAL IVP PRN (02:48)
[2021-11-30] MEDS: D5NS W/20 MEQ KCL 1,000 ML IV SCH ×3 (04:47→23:28)
[2021-11-30 05:26] LABS: BASOPHILS % (AUTO) 0.2 %; EOSINOPHILS % (AUTO) 0.1 %; HCT - HEMATOCRIT 41.3 % (42.0-52.0); HGB - HEMOGLOBIN 13.9 g/dL (14.0-18.0); LYMPHOCYTES # (AUTO) 0.6 10^3/uL (1.5-3.5); LYMPHOCYTES % (AUTO) 3.2 %; MEAN CORPUSCULAR HEMOGLOBIN 32.6 pg (27.0-31.0); MEAN CORPUSCULAR HGB CONC 33.7 g/dL (32.0-36.0); MEAN CORPUSCULAR VOLUME 96.9 fL (80.0-94.0); MEAN PLATELET VOLUME 10.4 fL (7.4-11.4); MONOCYTES # (AUTO) 1.5 10^3/uL (0.0-1.0); MONOCYTES % (AUTO) 8.1 %; NEUTROPHILS # (AUTO) 16.4 10^3/uL (1.5-6.6); NEUTROPHILS % (AUTO) 88.1 %; PLT - PLATELET COUNT 330 10^3/uL (130-450); RED BLOOD COUNT 4.26 10^6/uL (4.70-6.10); RED CELL DISTRIBUTION WIDTH 13.7 % (12.0-15.0); WHITE BLOOD COUNT 18.6 x10^3/uL (4.8-10.8)
[2021-11-30 05:31] LABS: CREATININE 0.9 mg/dL (0.6-1.2); POTASSIUM 4.2 mmol/L (3.5-5.0)
[2021-11-30] MEDS: PANTOPRAZOLE 40 MG VIAL IVP SCH (07:46)
[2021-11-30] MEDS ORDERED: CALCIUM CARBONATE CHEW 500 MG TABLET PO PRN (08:23)
--- NOTE | 2021-11-30 08:45 | PROVIDER PROGRESS NOTE ---
Assessment/Plan - Problem List (1) Small bowel obstruction, partial Assessment/Plan: Patient presented to the ED with generalized abdominal pain on 11/29/21. CT of the abdomen and pelvis showed " dilated fluid filled loops of small bowel with transition point within mid. abdomen". He has a history of multiple abdominal surgeries, splenectomy, cholecystectomy, and bowel obstruction due to a mesh that resulted in a bowel resection. Today the patient denies nausea or vomiting with 2 episodes over night. He is tolerating sips and chips with hypoactive bowel sounds to abdominal quadrants x4. Dr. Neal from surgical team was consulted 11/29/21 who recommended advancing diet to clear if he remains pain free. Today he suggested inserting an nasogastric tube. Supervising physician discussed with surgeon today about conflicting recommendation today and stated "It's hard to know what to do with this carlos". Plan: Advance diet as tolerated to clear liquid at lunch. Continue IV hydration with normal saline. Continue pain management with Dilaudid 1mg q2hrs as needed. (2) Leukocytosis Assessment/Plan: Admission WBC was 12.6 and incraed to 18 today. Patient remains afebrile and denies pain. Lactic acid was drawn this morning and was 1.5. Leukocytosis most likely reactive secondary to abdominal inflammation versus infection. Plan: Admit patient to inpatient due to increasing WBCs. Blood cultures obtained and are pending. Continue to monitor WBC and for fever. (3) Seizure disorder Assessment/Plan: Patient has a history of epilepsy and takes phenytoin. He is currently NPO with plans to advance to clear diet today therefore he is unable to take PO medications. Plan: Continue with Phenytoin IV while NPO. Pharmacy to monitor levels and dose. (4) BPH (benign prostatic hyperplasia) Assessment/Plan: Patient has a distant history of prostate cancer and BPH. He takes Finasteride and myrbetriq for urinary retention and bladder spasms. He is currently NPO with plans to advance diet to clear liquid as tolerated due to bowel obstruction. Plan: Hold PO mediations while NPO. Monitor for urinary retention and consider straight catheter if unable to void. Resume Finasteride and Myrbetriq when patient able to tolerate PO. (5) HTN (hypertension) Assessment/Plan: Patient has a history of hypertension but not prescribed medication outpatient. Initial systolic blood pressure was 170, with subsequent systolic blood pressure ranging 110-150s. Plan: Continue to monitor blood pressure and give Hydralazine 10 mg every 4 hours as needed for systolic blood pressure greater than 160. - Current Meds Current Meds: Current Medications Generic Name Dose Route Start Last Admin Trade Name Freq PRN Reason Stop Dose Admin Hydromorphone HCl 1 mg 11/29/21 20:31 11/30/21 06:44 Hydromorphone 0.5 Mg/0.5 Ml Syringe IVP 1 mg Q2H PRN Administration Pain 8 to 10 Potassium Chloride/Dextrose/Sod Cl 1,000 mls @ 100 mls/hr 11/29/21 19:00 11/30/21 04:47 D5ns W/20 Meq Kcl IV 100 mls/hr .Q10H CRISTIANO Administration Ondansetron HCl 4 mg 11/29/21 18:16 11/30/21 02:48 Ondansetron 4 Mg/2 Ml Vial IVP 4 mg Q6HR PRN Administration Nausea / Vomiting Pantoprazole Sodium 40 mg 11/30/21 08:00 11/30/21 07:46 Pantoprazole 40 Mg Vial IVP 40 mg QDAC CRISTIANO Administration Sodium Chloride 10 ml 11/30/21 01:00 11/30/21 07:46 Sodium Chloride Flush 0.9% 10 Ml Syringe IVP 10 ml 0100,[id number],1700 CRISTIANO Administration - Lab Result Fish Bone Diagrams: 11/30/21 04:14 11/30/21 04:14 - Diagnostic Imaging Results Diagnostic Imaging Results: Final report reviewed - Additional Planning Condition/Complexity: Guarded Consult/Specialty: Surgery (Dr. Neal is consulting with reccomendation to keep NPO until abdominal pain subsides and then progress to clears. It is also r eccomended that if patient does not improve, transfer to higher level of care for surgery if small bowel anastomosis revison can not be done at [facility].) Subjective - Subjective Patient Reports: Feeling Better, Resting Comfortably, Heartburn (Patient was sitting in chair and reports feeling better today. He is having intermittent dyspepsia and would like to resume home medications for GERD, osteoarthritis pain, BPH, and epilepsy. Denies nausea and vomiting since last night.) Objective Vital Signs: Vital Signs - 24 hr 11/29/21 11/29/21 11/29/21 13:23 15:21 17:00 Temperature 36.2 C L Heart Rate 75 68 72 Heart Rate [ Brachial] Heart Rate [ Radial] Respiratory 16 18 18 Rate Blood Pressure 153/75 H 152/72 H 145/109 H Blood Pressure [Left Brachial artery] Blood Pressure [Right Brachial artery] O2 Saturation 96 92 97 11/29/21 11/29/21 11/29/21 19:10 21:02 23:31 Temperature 37.3 C 37.1 C 37 C Heart Rate Heart Rate [ Brachial] Heart Rate [ 68 77 76 Radial] Respiratory 16 16 14 Rate Blood Pressure Blood Pressure 171/68 H 154/66 H 131/69 H [Left Brachial artery] Blood Pressure [Right Brachial artery] O2 Saturation 100 99 94 11/30/21 11/30/21 04:49 08:23 Temperature 37.2 C 37.2 C Heart Rate Heart Rate [ 81 78 Brachial] Heart Rate [ Radial] Respiratory 17 18 Rate Blood Pressure Blood Pressure [Left Brachial artery] Blood Pressure 137/65 H 138/71 H [Right Brachial artery] O2 Saturation 93 95 Oxygen O2 Source Room air I&O (Last 24 Hrs): Intake and Output Totals x24h 11/28/21 11/29/21 11/30/21 23:59 23:59 23:59 Intake Total 425 943.333 Output Total 315 250 Balance 110 693.333 General: Alert, Oriented x3, Cooperative, No acute distress HEENT: EOMI, Other (Dry mucous membrane) Neck: Supple, No JVD Neuro: Alert, Oriented Times 3 Cardiovascular: Regular rate, No murmurs Respiratory: Chest non-tender, No respiratory distress, Breath sounds nml Abdomen: No tenderness, Other (Hypoactive bowel sounds to all quadrants. Disten ded abdomen.) Skin: No rashes - Results Results: Laboratory Results WBC 18.6 x10^3/uL (4.8-10.8) H 11/30/21 04:14 RBC 4.26 10^6/uL (4.70-6.10) L 11/30/21 04:14 Hgb 13.9 g/dL (14.0-18.0) L 11/30/21 04:14 Hct 41.3 % (42.0-52.0) L 11/30/21 04:14 MCV 96.9 fL (80.0-94.0) H 11/30/21 04:14 MCH 32.6 pg (27.0-31.0) H 11/30/21 04:14 MCHC 33.7 g/dL (32.0-36.0) 11/30/21 04:14 RDW 13.7 % (12.0-15.0) 11/30/21 04:14 Plt Count 330 10^3/uL (130-450) 11/30/21 04:14 MPV 10.4 fL (7.4-11.4) 11/30/21 04:14 Neut # (Auto) 16.4 10^3/uL (1.5-6.6) H 11/30/21 04:14 Lymph # (Auto) 0.6 10^3/uL (1.5-3.5) L 11/30/21 04:14 [place] # (Auto) 1.5 10^3/uL (0.0-1.0) H 11/30/21 04:14 Eos # (Auto) 0.0 10^3/uL (0.0-0.7) 11/30/21 04:14 Baso # (Auto) 0.0 10^3/uL (0.0-0.1) 11/30/21 04:14 Absolute Nucleated RBC 0.00 x10^3/uL 11/30/21 04:14 Nucleated RBC % 0.0 /100WBC 11/30/21 04:14 Manual Slide Review Indicated 11/29/21 13:45 Platelet Estimate NORMAL (130-450,000) (NORMAL) 11/29/21 13:45 Platelet Morphology PLATELET CLUMPING (NORMAL) 11/29/21 13:45 RBC Morph Micro Appear NORMAL APPEARANCE (NORMAL) 11/29/21 13:45 Sodium 136 mmol/L (135-145) 11/30/21 04:14 Potassium 4.2 mmol/L (3.5-5.0) 11/30/21 04:14 Chloride 100 mmol/L (101-111) L 11/30/21 04:14 Carbon Dioxide 25 mmol/L (21-32) 11/30/21 04:14 Anion Gap 11.0 (6-13) 11/30/21 04:14 BUN 23 mg/dL (6-20) H 11/30/21 04:14 Creatinine 0.9 mg/dL (0.6-1.2) 11/30/21 04:14 Estimated GFR (MDRD) 81 (>89) L 11/30/21 04:14 Glucose 171 mg/dL (70-100) H 11/30/21 04:14 Calcium 10.0 mg/dL (8.5-10.3) 11/30/21 04:14 Total Bilirubin 1.1 mg/dL (0.2-1.0) H 11/29/21 13:45 AST 24 IU/L (10-42) 11/29/21 13:45 ALT 17 IU/L (10-60) 11/29/21 13:45 Alkaline Phosphatase 75 IU/L (42-121) 11/29/21 13:45 Total Protein 7.5 g/dL (6.7-8.2) 11/29/21 13:45 Albumin 4.4 g/dL (3.2-5.5) 11/29/21 13:45 Globulin 3.1 g/dL (2.1-4.2) 11/29/21 13:45 Albumin/Globulin Ratio 1.4 (1.0-2.2) 11/29/21 13:45 Lipase 22 U/L (22-51) 11/29/21 13:45 Urine Color YELLOW 11/29/21 14:57 Urine Clarity CLEAR (CLEAR) 11/29/21 14:57 Urine pH 7.5 PH (5.0-7.5) 11/29/21 14:57 Ur Specific [place] 1.010 (1.002-1.030) 11/29/21 14:57 Urine Protein NEGATIVE mg/dL (NEGATIVE) 11/29/21 14:57 Urine Glucose (UA) NEGATIVE mg/dL (NEGATIVE) 11/29/21 14:57 Urine Ketones NEGATIVE mg/dL (NEGATIVE) 11/29/21 14:57 Urine Occult Blood TRACE-INTA (NEGATIVE) 11/29/21 14:57 Urine Nitrite NEGATIVE (NEGATIVE) 11/29/21 14:57 Urine Bilirubin NEGATIVE (NEGATIVE) 11/29/21 14:57 Urine Urobilinogen 0.2 (NORMAL) E.U./dL (NORMAL) 11/29/21 14:57 Ur Leukocyte Esterase NEGATIVE (NEGATIVE) 11/29/21 14:57 Ur Microscopic Review NOT INDICATED 11/29/21 14:57 Urine Culture Comments NOT INDICATED 11/29/21 14:57 Nasal Adenovirus (PCR) NOT DETECTED 11/29/21 17:10 Nasal B. parapertussis DNA (PCR) NOT DETECTED 11/29/21 17:10 Nasal Coronavir 229E PCR NOT DETECTED 11/29/21 17:10 Nasal Coronavir HKU1 PCR NOT DETECTED 11/29/21 17:10 Nasal Coronavir NL63 PCR NOT DETECTED 11/29/21 17:10 Nasal Coronavir OC43 PCR NOT DETECTED 11/29/21 17:10 Nasal Enterovir/Rhinovir PCR NOT DETECTED 11/29/21 17:10 Nasal Influenza B PCR NOT DETECTED 11/29/21 17:10 Nasal Influenza A PCR NOT DETECTED 11/29/21 17:10 Nasal Parainfluen 1 PCR NOT DETECTED 11/29/21 17:10 Nasal Parainfluen 2 PCR NOT DETECTED 11/29/21 17:10 Nasal Parainfluen 3 PCR NOT DETECTED 11/29/21 17:10 Nasal Parainfluen 4 PCR NOT DETECTED 11/29/21 17:10 Nasal RSV (PCR) NOT DETECTED 11/29/21 17:10 Nasal B.pertussis DNA PCR NOT DETECTED 11/29/21 17:10 Nasal C.pneumoniae (PCR) NOT DETECTED 11/29/21 17:10 Paul Human Metapneumo PCR NOT DETECTED 11/29/21 17:10 Nasal M.pneumoniae (PCR) NOT DETECTED 11/29/21 17:10 Nasal SARS-CoV-2 (PCR) NOT DETECTED 11/29/21 17:10 Phenytoin 14.6 ug/mL 11/29/21 13:45 - Procedures Procedures: Procedures SUPPLEMENT L INGUINAL REGION WITH SYNTH SUB, OPEN APPROACH (08/03/19) ABX Reporting Has patient been on IV antibiotics over the past 48 hours?: No
[2021-11-30] MEDS: PHENYTOIN 100 MG/2 ML VIAL IVP SCH ×3 (08:47→21:13)
--- NOTE | 2021-11-30 08:57 | PROVIDER PROGRESS NOTE ---
Subjective - Subjective Subjective: complaint of neck and back pain Objective - Vital Signs/Intake & Output Reviewed Vital Signs: Yes Vital Signs: Vital Signs x48h Temp Pulse Resp BP Pulse Ox 11/30/21 08:23 37.2 C 78 18 138/71 H 95 11/30/21 04:49 37.2 C 81 17 137/65 H 93 Intake & Output: Intake & Output 11/27/21 11/28/21 11/29/21 11/30/21 23:59 23:59 23:59 23:59 Intake Total 425 943.333 Output Total 315 250 Balance 110 693.333 - Objective General Appearance: positive: No acute distress, Alert, Other (complaining about his lack of usual medication and neck pain) Eyes Bilateral: positive: PERRL, EOMI Respiratory: positive: No respiratory distress Rectal: positive: Non-tender (mild distension), Other Neurologic/Psychiatric: positive: Oriented x3 - Lab Results Fish Bones: 11/30/21 04:14 11/30/21 04:14 Other Labs: Lab Results x24hrs 11/30/21 11/30/21 11/30/21 Range/Units 08:24 04:14 04:14 WBC 18.6 H (4.8-10.8) x10^3/uL RBC 4.26 L (4.70-6.10) 10^6/uL Hgb 13.9 L (14.0-18.0) g/dL Hct 41.3 L (42.0-52.0) % MCV 96.9 H (80.0-94.0) fL MCH 32.6 H (27.0-31.0) pg MCHC 33.7 (32.0-36.0) g/dL RDW 13.7 (12.0-15.0) % Plt Count 330 (130-450) 10^3/uL MPV 10.4 (7.4-11.4) fL Neut # (Auto) 16.4 H (1.5-6.6) 10^3/uL Lymph # (Auto) 0.6 L (1.5-3.5) 10^3/uL [place] # (Auto) 1.5 H (0.0-1.0) 10^3/uL Eos # (Auto) 0.0 (0.0-0.7) 10^3/uL Baso # (Auto) 0.0 (0.0-0.1) 10^3/uL Absolute Nucleated RBC 0.00 x10^3/uL Nucleated RBC % 0.0 /100WBC Manual Slide Review Platelet Estimate (NORMAL) Platelet Morphology (NORMAL) RBC Morph Micro Appear (NORMAL) Sodium 136 (135-145) mmol/L Potassium 4.2 (3.5-5.0) mmol/L Chloride 100 L (101-111) mmol/L Carbon Dioxide 25 (21-32) mmol/L Anion Gap 11.0 (6-13) BUN 23 H (6-20) mg/dL Creatinine 0.9 (0.6-1.2) mg/dL Estimated GFR (MDRD) 81 L (>89) Glucose 171 H (70-100) mg/dL Lactic Acid 1.5 (0.5-2.2) mmol/L Calcium 10.0 (8.5-10.3) mg/dL Total Bilirubin (0.2-1.0) mg/dL AST (10-42) IU/L ALT (10-60) IU/L Alkaline Phosphatase (42-121) IU/L Total Protein (6.7-8.2) g/dL Albumin (3.2-5.5) g/dL Globulin (2.1-4.2) g/dL Albumin/Globulin Ratio (1.0-2.2) Lipase (22-51) U/L Urine Color Urine Clarity (CLEAR) Urine pH (5.0-7.5) PH Ur Specific [place] (1.002-1.030) Urine Protein (NEGATIVE) mg/dL Urine Glucose (UA) (NEGATIVE) mg/dL Urine Ketones (NEGATIVE) mg/dL Urine Occult Blood (NEGATIVE) Urine Nitrite (NEGATIVE) Urine Bilirubin (NEGATIVE) Urine Urobilinogen (NORMAL) E.U./dL Ur Leukocyte Esterase (NEGATIVE) Ur Microscopic Review Urine Culture Comments Nasal Adenovirus (PCR) Nasal B. parapertussis DNA (PCR) Nasal Coronavir 229E PCR Nasal Coronavir HKU1 PCR Nasal Coronavir NL63 PCR Nasal Coronavir OC43 PCR Nasal Enterovir/Rhinovir PCR Nasal Influenza B PCR Nasal Influenza A PCR Nasal Parainfluen 1 PCR Nasal Parainfluen 2 PCR Nasal Parainfluen 3 PCR Nasal Parainfluen 4 PCR Nasal RSV (PCR) Nasal B.pertussis DNA PCR Nasal C.pneumoniae (PCR) Paul Human Metapneumo PCR Nasal M.pneumoniae (PCR) Nasal SARS-CoV-2 (PCR) Phenytoin ug/mL 11/29/21 11/29/21 11/29/21 Range/Units 17:10 14:57 13:45 WBC (4.8-10.8) x10^3/uL RBC (4.70-6.10) 10^6/uL Hgb (14.0-18.0) g/dL Hct (42.0-52.0) % MCV (80.0-94.0) fL MCH (27.0-31.0) pg MCHC (32.0-36.0) g/dL RDW (12.0-15.0) % Plt Count (130-450) 10^3/uL MPV (7.4-11.4) fL Neut # (Auto) (1.5-6.6) 10^3/uL Lymph # (Auto) (1.5-3.5) 10^3/uL [place] # (Auto) (0.0-1.0) 10^3/uL Eos # (Auto) (0.0-0.7) 10^3/uL Baso # (Auto) (0.0-0.1) 10^3/uL Absolute Nucleated RBC x10^3/uL Nucleated RBC % /100WBC Manual Slide Review Platelet Estimate (NORMAL) Platelet Morphology (NORMAL) RBC Morph Micro Appear (NORMAL) Sodium 136 (135-145) mmol/L Potassium 4.1 (3.5-5.0) mmol/L Chloride 100 L (101-111) mmol/L Carbon Dioxide 28 (21-32) mmol/L Anion Gap 8.0 (6-13) BUN 23 H (6-20) mg/dL Creatinine 0.8 (0.6-1.2) mg/dL Estimated GFR (MDRD) 93 (>89) Glucose 110 H (70-100) mg/dL Lactic Acid (0.5-2.2) mmol/L Calcium 10.4 H (8.5-10.3) mg/dL Total Bilirubin 1.1 H (0.2-1.0) mg/dL AST 24 (10-42) IU/L ALT 17 (10-60) IU/L Alkaline Phosphatase 75 (42-121) IU/L Total Protein 7.5 (6.7-8.2) g/dL Albumin 4.4 (3.2-5.5) g/dL Globulin 3.1 (2.1-4.2) g/dL Albumin/Globulin Ratio 1.4 (1.0-2.2) Lipase 22 (22-51) U/L Urine Color YELLOW Urine Clarity CLEAR (CLEAR) Urine pH 7.5 (5.0-7.5) PH Ur Specific [place] 1.010 (1.002-1.030) Urine Protein NEGATIVE (NEGATIVE) mg/dL Urine Glucose (UA) NEGATIVE (NEGATIVE) mg/dL Urine Ketones NEGATIVE (NEGATIVE) mg/dL Urine Occult Blood TRACE-INTA (NEGATIVE) Urine Nitrite NEGATIVE (NEGATIVE) Urine Bilirubin NEGATIVE (NEGATIVE) Urine Urobilinogen 0.2 (NORMAL) (NORMAL) E.U./dL Ur Leukocyte Esterase NEGATIVE (NEGATIVE) Ur Microscopic Review NOT INDICATED Urine Culture Comments NOT INDICATED Nasal Adenovirus (PCR) NOT DETECTED Nasal B. parapertussis DNA (PCR) NOT DETECTED Nasal Coronavir 229E PCR NOT DETECTED Nasal Coronavir HKU1 PCR NOT DETECTED Nasal Coronavir NL63 PCR NOT DETECTED Nasal Coronavir OC43 PCR NOT DETECTED Nasal Enterovir/Rhinovir PCR NOT DETECTED Nasal Influenza B PCR NOT DETECTED Nasal Influenza A PCR NOT DETECTED Nasal Parainfluen 1 PCR NOT DETECTED Nasal Parainfluen 2 PCR NOT DETECTED Nasal Parainfluen 3 PCR NOT DETECTED Nasal Parainfluen 4 PCR NOT DETECTED Nasal RSV (PCR) NOT DETECTED Nasal B.pertussis DNA PCR NOT DETECTED Nasal C.pneumoniae (PCR) NOT DETECTED [place] Human Metapneumo PCR NOT DETECTED Nasal M.pneumoniae (PCR) NOT DETECTED Nasal SARS-CoV-2 (PCR) NOT DETECTED Phenytoin 14.6 ug/mL 11/29/21 Range/Units 13:45 WBC 12.6 H (4.8-10.8) x10^3/uL RBC 4.00 L (4.70-6.10) 10^6/uL Hgb 13.5 L (14.0-18.0) g/dL Hct 39.0 L (42.0-52.0) % MCV 97.5 H (80.0-94.0) fL MCH 33.8 H (27.0-31.0) pg MCHC 34.6 (32.0-36.0) g/dL RDW 13.8 (12.0-15.0) % Plt Count (130-450) 10^3/uL MPV 10.6 (7.4-11.4) fL Neut # (Auto) 10.6 H (1.5-6.6) 10^3/uL Lymph # (Auto) 1.1 L (1.5-3.5) 10^3/uL [place] # (Auto) 0.8 (0.0-1.0) 10^3/uL Eos # (Auto) 0.0 (0.0-0.7) 10^3/uL Baso # (Auto) 0.0 (0.0-0.1) 10^3/uL Absolute Nucleated RBC 0.00 x10^3/uL Nucleated RBC % 0.0 /100WBC Manual Slide Review Indicated Platelet Estimate NORMAL (130-450,000) (NORMAL) Platelet Morphology PLATELET CLUMPING (NORMAL) RBC Morph Micro Appear NORMAL APPEARANCE (NORMAL) Sodium (135-145) mmol/L Potassium (3.5-5.0) mmol/L Chloride (101-111) mmol/L Carbon Dioxide (21-32) mmol/L Anion Gap (6-13) BUN (6-20) mg/dL Creatinine (0.6-1.2) mg/dL Estimated GFR (MDRD) (>89) Glucose (70-100) mg/dL Lactic Acid (0.5-2.2) mmol/L Calcium (8.5-10.3) mg/dL Total Bilirubin (0.2-1.0) mg/dL AST (10-42) IU/L ALT (10-60) IU/L Alkaline Phosphatase (42-121) IU/L Total Protein (6.7-8.2) g/dL Albumin (3.2-5.5) g/dL Globulin (2.1-4.2) g/dL Albumin/Globulin Ratio (1.0-2.2) Lipase (22-51) U/L Urine Color Urine Clarity (CLEAR) Urine pH (5.0-7.5) PH Ur Specific [place] (1.002-1.030) Urine Protein (NEGATIVE) mg/dL Urine Glucose (UA) (NEGATIVE) mg/dL Urine Ketones (NEGATIVE) mg/dL Urine Occult Blood (NEGATIVE) Urine Nitrite (NEGATIVE) Urine Bilirubin (NEGATIVE) Urine Urobilinogen (NORMAL) E.U./dL Ur Leukocyte Esterase (NEGATIVE) Ur Microscopic Review Urine Culture Comments Nasal Adenovirus (PCR) Nasal B. parapertussis DNA (PCR) Nasal Coronavir 229E PCR Nasal Coronavir HKU1 PCR Nasal Coronavir NL63 PCR Nasal Coronavir OC43 PCR Nasal Enterovir/Rhinovir PCR Nasal Influenza B PCR Nasal Influenza A PCR Nasal Parainfluen 1 PCR Nasal Parainfluen 2 PCR Nasal Parainfluen 3 PCR Nasal Parainfluen 4 PCR Nasal RSV (PCR) Nasal B.pertussis DNA PCR Nasal C.pneumoniae (PCR) Paul Human Metapneumo PCR Nasal M.pneumoniae (PCR) Nasal SARS-CoV-2 (PCR) Phenytoin ug/mL - Other Results/Comments Other Results/Comments: partial sbo at distal small bowel anastomosis extensive pmh and psh recommend ngt he would be best treated at a hospital that can offer a higher level of care given his considerable surgical history. if not improving recommend transfer
[2021-11-30] MEDS: FAMOTIDINE 20 MG/2 ML VIAL IVP SCH ×2 (10:25→20:57)
[2021-12-01] MEDS: HYDROmorphone 0.5 MG/0.5 ML SYRINGE IVP PRN ×2 (01:16→05:59)
[2021-12-01 05:13] LABS: BASOPHILS % (AUTO) 0.2 %; EOSINOPHILS # (AUTO) 0.1 10^3/uL (0.0-0.7); EOSINOPHILS % (AUTO) 1.5 %; HCT - HEMATOCRIT 36.4 % (42.0-52.0); HGB - HEMOGLOBIN 12.1 g/dL (14.0-18.0); LYMPHOCYTES # (AUTO) 1.5 10^3/uL (1.5-3.5); LYMPHOCYTES % (AUTO) 17.2 %; MEAN CORPUSCULAR HEMOGLOBIN 33.1 pg (27.0-31.0); MEAN CORPUSCULAR HGB CONC 33.2 g/dL (32.0-36.0); MEAN CORPUSCULAR VOLUME 99.5 fL (80.0-94.0); MEAN PLATELET VOLUME 9.5 fL (7.4-11.4); MONOCYTES # (AUTO) 1.2 10^3/uL (0.0-1.0); MONOCYTES % (AUTO) 13.2 %; NEUTROPHILS # (AUTO) 6.1 10^3/uL (1.5-6.6); NEUTROPHILS % (AUTO) 67.7 %; PLT - PLATELET COUNT 273 10^3/uL (130-450); RED BLOOD COUNT 3.66 10^6/uL (4.70-6.10); RED CELL DISTRIBUTION WIDTH 14.1 % (12.0-15.0)
[2021-12-01 05:25] LABS: CALCIUM 9.3 mg/dL (8.5-10.3); CREATININE 0.7 mg/dL (0.6-1.2); PHENYTOIN (DILANTIN) 11.2 ug/mL
[2021-12-01] MEDS: PANTOPRAZOLE 40 MG VIAL IVP SCH (06:07)
[2021-12-01] MEDS: PHENYTOIN 100 MG/2 ML VIAL IVP SCH (06:10)
[2021-12-01] MEDS ORDERED: FINASTERIDE 5 MG TABLET PO SCH (09:00)
[2021-12-01] MEDS ORDERED: SOLIFENACIN SUCCINATE 10 MG TABLET PO SCH (09:00)
--- NOTE | 2021-12-01 09:15 | PROVIDER PROGRESS NOTE ---
Subjective - General Admit Date: 11/30/21 Procedure Date: 08/03/19 Post Op Days: 851 - Other Other Information/Narrative: Passing flatus and tolerating liquids. Abdominal pain resolving. Objective - Patient Data Reviewed Vital Signs: Yes Vital Signs: Vital Signs x48h Temp Pulse Pulse Resp BP Pulse Ox 12/01/21 07:18 36.6 C 61 18 120/67 95 12/01/21 06:54 62 126/62 12/01/21 06:14 129/57 L 12/01/21 05:03 36.6 C 66 16 122/66 94 Weight: Weight 11/29/21 11/30/21 12/01/21 23:59 23:59 23:59 Weight (kg) 85 kg Intake & Output: Intake and Output Totals x24h 11/29/21 11/30/21 12/01/21 23:59 23:59 23:59 Intake Total 425 3121.666 1438.333 Output Total 315 700 775 Balance 110 2421.666 663.333 - Lab Results Lab Results: 12/01/21 05:00 12/01/21 05:00 Other Lab Results: Lab Results x24hrs 12/01/21 12/01/21 Range/Units 05:00 05:00 WBC 9.0 (4.8-10.8) x10^3/uL RBC 3.66 L (4.70-6.10) 10^6/uL Hgb 12.1 L (14.0-18.0) g/dL Hct 36.4 L (42.0-52.0) % MCV 99.5 H (80.0-94.0) fL MCH 33.1 H (27.0-31.0) pg MCHC 33.2 (32.0-36.0) g/dL RDW 14.1 (12.0-15.0) % Plt Count 273 (130-450) 10^3/uL MPV 9.5 (7.4-11.4) fL Neut # (Auto) 6.1 (1.5-6.6) 10^3/uL Lymph # (Auto) 1.5 (1.5-3.5) 10^3/uL [place] # (Auto) 1.2 H (0.0-1.0) 10^3/uL Eos # (Auto) 0.1 (0.0-0.7) 10^3/uL Baso # (Auto) 0.0 (0.0-0.1) 10^3/uL Absolute Nucleated RBC 0.00 x10^3/uL Nucleated RBC % 0.0 /100WBC Sodium 140 (135-145) mmol/L Potassium 4.0 (3.5-5.0) mmol/L Chloride 108 (101-111) mmol/L Carbon Dioxide 24 (21-32) mmol/L Anion Gap 8.0 (6-13) BUN 23 H (6-20) mg/dL Creatinine 0.7 (0.6-1.2) mg/dL Estimated GFR (MDRD) 108 (>89) Glucose 125 H (70-100) mg/dL Calcium 9.3 (8.5-10.3) mg/dL Phenytoin 11.2 ug/mL - Current Medications Current Medications: Current Medications Generic Name Dose Route Start Last Admin Trade Name Freq PRN Reason Stop Dose Admin Famotidine 20 mg 11/30/21 10:13 11/30/21 20:57 Famotidine 20 Mg/2 Ml Vial IVP 20 mg BID CRISTIANO Administration Hydromorphone HCl 1 mg 11/30/21 10:14 12/01/21 05:59 Hydromorphone 0.5 Mg/0.5 Ml Syringe IVP 1 mg Q2H PRN Administration Breakthrough Pain Potassium Chloride/Dextrose/Sod Cl 1,000 mls @ 100 mls/hr 11/29/21 19:00 12/01/21 08:15 D5ns W/20 Meq Kcl IV 0 mls/hr .Q10H CRISTIANO Infusion Ondansetron HCl 4 mg 11/29/21 18:16 11/30/21 02:48 Ondansetron 4 Mg/2 Ml Vial IVP 4 mg Q6HR PRN Administration Nausea / Vomiting Pantoprazole Sodium 40 mg 11/30/21 08:00 12/01/21 06:07 Pantoprazole 40 Mg Vial IVP 40 mg QDAC CRISTIANO Administration Phenytoin Sodium 100 mg 11/30/21 08:25 12/01/21 06:10 Phenytoin 100 Mg/2 Ml Vial IVP 100 mg TID CRISTIANO Administration Sodium Chloride 10 ml 11/30/21 01:00 11/30/21 23:30 Sodium Chloride Flush 0.9% 10 Ml Syringe IVP Not Given 0100,0900,1700 CRISTIANO - Physical Exam General Appearance: positive: No acute distress Respiratory: positive: No respiratory distress Cardiovascular: positive: Regular rate & rhythm Abdomen: positive: Other (Soft, mildly distended, non-tender, midline laparotomy scar) Neurologic/Psychiatric: positive: Oriented x3 Impression/Plan - Problem List Problem List: Small bowel obstruction: Resolving. Recommend advancing diet as tolerated, could try general diet today. May need speech/swallow eval for patient's note of poor dentition (and if needed do low residue diet). Discharge with general surgery follow up for discussion of chronic intermittent obstruction symptoms and possible need for small bowel anastomosis revision Ruben Capps MD
[2021-12-01] MEDS: SODIUM CHLORIDE FLUSH 0.9% 10 ML SYRINGE IVP SCH (09:46)
[2021-12-01] MEDS: FAMOTIDINE 20 MG/2 ML VIAL IVP SCH (10:33)
[2021-12-01] MEDS ORDERED: oxyCODONE ER 10 MG TABLET PO SCH (11:00)
[2021-12-01 15:44] VITALS: BP 150/71
--- NOTE | 2021-12-01 15:58 | Discharge Plan ---
Discharge Plan Problem Reviewed?: Yes Disposition: Home, Self Care Condition: Stable Diet: Soft (3 more days of a soft diet then stay on a Low-fiber diet) Activity Restrictions: Activity as Tolerated Shower Restrictions: No Health Concerns: You were hospitalized to manage a partial small bowel obstruction. By giving your bowels rest, amd taking in only clear liquids, the obstruction resolved and you are having normal bowel movements. Please remain on a soft, low-fiber diet for the next 3 days. After that you may resume may a regular texture diet but stay on low fiber. The surgeon who did consultation for you recommended that you have follow-up with general surgery for discussion of chronic intermittent obstruction symptoms and possible need for small bowel anastomosis revision. You may resume all your usual medications.. If you should have recurrence of these types of bowel obstruction symptoms again, please immediately changed to a clear liquid diet for 1 day, then advance the diet as tolerated. Plan of Treatment: As above. Care Goals: Improvement in symptoms and stabilization are the goals. Assessment: The patient understands and is agreeable with the plan. Additional Instructions or Follow Up instructions: Please see your primary care provider in the next 1 to 4 weeks. No Smoking: If you smoke, Please STOP! Call for help. Follow-up with: Bay Cruz MD [Primary Care Provider] -
--- NOTE | 2021-12-01 17:15 | DISCHARGE SUMMARY ---
"Discharge Summary Admit Date: 11/29/21 Discharge Date: 12/01/21 Discharging Provider: Dr. Mancini Primary Care Provider: Dr. Cruz Code Status: Attempt Resuscitation Condition at Discharge: Stable Discharge Disposition: 01 Home, Self Care - DIAGNOSES Admission Diagnoses: (1) Small bowel obstruction, partial (2) Leukocytosis (3) Seizure disorder (4) BPH (benign prostatic hyperplasia) (5) HTN (hypertension) - HPI History of Present Illness: Per Dr. Copeland admitting note: Patient is an 81-year-old male who presented to the ED with abdominal pain. This started around 3 AM. By breakfast his pain was about 6 out of 10 scale as a result he came to the ED for evaluation around 2 PM. The abdominal pain is generalized. It is worse with laying down. His last bowel movement was around 9 AM this morning. He reports nothing out of the ordinary regarding it. He was ate at breakfast when he had cream of wheat and coffee. Currently he denies chest pain, dyspnea, fever, chills, nausea or vomiting. He also rates his abdominal pain 3 out of 10. He appears to be resting comfort ably. Work-up in the ED included a CT of the abdomen/pelvis which showed a partial small bowel obstruction. As a result he is being admitted for further management. - CONSULTS | PROCEDURES Consultations: Dr. Capps with General Surgery - HOSPITAL COURSE Hospital Course: (1) Small bowel obstruction, partial Patient was found to have a small bowel obstruction at the transition point in the mid abdomen. He was treated with bowel rest, IV fluids, and pain mediation. He had 2 bowel movements and was able to tolerate a soft diet without nausea, vomiting, or abdominal pain on the day of discharge. Surgeon Recommendation: May need speech/swallow eval for patient's note of poor dentition (and if needed do low residue diet). Discharge with general surgery follow up for discussion of chronic intermittent obstruction symptoms and possible need for small bowel anastomosis revision (2) Leukocytosis WBC during admission elevated to 18. He remained afebrile and lactic acid was 1.5. Blood cultures were drawn and are negative todate. WBC on the day of discharge normalized to 9.0. The leukocytosis was most likely reactive secondary to abdominal inflammation versus infection. (3) Seizure disorder Patient has a history of epilepsy and takes phenytoin. He was NPO during hospitalization and changed to IV dilantin. No seizures were observed during hospitalization. Resumed PO dilantin on day of discharge. (4) BPH (benign prostatic hyperplasia) Patient has a distant history of prostate cancer and BPH. He takes Finasteride and myrbetriq for urinary retention and bladder spasms. He had limited PO intake for 2 days during hospitalization and unable to take urinary medications. He began to experience a decreased stream on day 2. His urinary medications were resumed on the day of discharge. (5) HTN (hypertension) Patient has a history of hypertension but not prescribed medication outpatient. Initial systolic blood pressure was 170, with subsequent systolic blood pressure ranging 110-150s. No interventions during hospitalization. - ALLERGIES Allergies/Adverse Reactions: Allergies Allergy/AdvReac Type Severity Reaction Status Date / Time amitriptyline [Amitriptyline] Allergy Intermediate Hallucinati Verified 11/29/21 13:30 ons heparinoids Allergy Intermediate Rash Verified 11/29/21 13:30 baclofen Allergy Unknown Verified 11/29/21 13:30 celecoxib Allergy Unknown Verified 11/29/21 13:30 diphenhydramine Allergy paradoxical Verified 11/29/21 13:30 reaction divalproex sodium Allergy pancreatiti Verified 11/29/21 13:30 [From Depakote] s glucosamine Allergy Unknown Verified 11/29/21 13:30 naproxen Allergy GI pain Verified 11/29/21 13:30 oxcarbazepine Allergy Unknown Verified 11/29/21 13:30 [From Trileptal] pregabalin [From Lyrica] Allergy pancreatiti Verified 11/29/21 13:30 s - MEDICATIONS Home Medications: Ambulatory Orders Medication Instructions Recorded Confirmed Aspirin EC [Ecotrin] 81 mg PO DAILY 06/27/13 11/29/21 Vit A,C & E/Lutein/Minerals 1 each PO DAILY 06/27/13 11/29/21 [Ocuvite with Lutein Tablet] Cyanocobalamin (Vitamin B-12) 1,000 mcg PO DAILY 02/09/14 11/29/21 [Vitamin B-12] Cholecalciferol (Vitamin D3) 2,000 units ORAL DAILY 05/03/14 11/29/21 [Vitamin D3] levOCARNitine tartrate 250 mg PO BID 05/09/18 11/29/21 [l-Carnitine] polyethylene glycoL 3350 [Miralax] 17 gm PO DAILY 01/06/19 11/29/21 Finasteride 5 mg PO DAILY PM 02/21/19 11/29/21 Mirabegron [Myrbetriq] 50 mg PO DAILY PM 02/21/19 11/29/21 Famotidine [Pepcid] 20 mg PO BID 07/28/19 11/29/21 Phenytoin Infatab [Dilantin 50 mg PO QPM 07/28/19 11/29/21 Infatab] Phenytoin [Dilantin] 300 mg PO DAILY PM 07/28/19 12/01/21 [place]-3/Dha/Epa/Fish Oil [Fish Oil 1,000 mg PO DAILY 11/29/21 11/29/21 1,000 mg Softgel] Oxycodone Myristate [Xtampza ER] 13.5 mg PO TID 11/29/21 12/01/21 oxyCODONE [Roxicodone] 5 mg PO TID PRN 12/01/21 12/01/21 - PHYSICAL EXAM AT DISCHARGE General Appearance: positive: No acute distress, Alert Eyes Bilateral: positive: Normal inspection, EOMI Respiratory: positive: Chest non-tender, No respiratory distress, Breath sounds nml Cardiovascular: positive: Regular rate & rhythm, No murmur Peripheral Pulses: positive: 2+ Abdomen: positive: Non-tender, No organomegaly, Nml bowel sounds, No distention Skin: positive: Color nml, No rash, Warm, Dry Extremities: positive: Non-tender, Full ROM, Nml appearance, No pedal edema Neurologic/Psychiatric: positive: Oriented x3 - LABS Result Diagrams: 12/01/21 05:00 12/01/21 05:00 - DIAGNOSTIC IMAGING Diagnostic Imaging Results: Final report reviewed - SEPSIS Current Stage of Sepsis: Ruled out - FOLLOW UP Follow Up: Follow up with general surgery to discuss chronic intermittent obstructions symptoms and possible need for small bowel anastomosis revision. - TIME SPENT Time Spent in Discharge (Minutes): 45"
[2021-12-01] MEDS ORDERED: PHENYTOIN CHEW 50 MG TABLET PO SCH (21:00)
[2021-12-01] MEDS ORDERED: PHENYTOIN ER 100 MG CAPSULE PO SCH (21:00)
== END 2021-12-01 16:45 | disposition home or self-care (01) | DRG 390 ==
LOC: ED 13:17 → MS2 18:16 → OBSVTOIN 11-30 15:06
PROVIDERS: ADMIT Internal Medicine; ATTEND Internal Medicine
DX: K56.600 Partial intestinal obstruction, unspecified as to cause (principal); D72.829 Elevated white blood cell count, unspecified; G40.909 Epilepsy, unspecified, not intractable, without status epilepticus; N40.1 Benign prostatic hyperplasia with lower urinary tract symptoms; R33.8 Other retention of urine; Z85.46 Personal history of malignant neoplasm of prostate; I10 Essential (primary) hypertension; G47.30 Sleep apnea, unspecified; G89.29 Other chronic pain; Z79.899 Other long term (current) drug therapy; Z20.822 Contact with and (suspected) exposure to COVID-19; K21.9 Gastro-esophageal reflux disease without esophagitis; Z98.0 Intestinal bypass and anastomosis status; Z90.49 Acquired absence of other specified parts of digestive tract; M15.9 Polyosteoarthritis, unspecified
CPT/HCPCS: 36415; 74177; 80048; 80053; 80185; 81003; 83605; 83690; 85025; 87040; 87631; 96374; 96375; 96376; 99283; 99285; A9270; G0378; J1170; Q9967; 0202U; 81001; 87086

== ENCOUNTER 2022-01-09 14:06 | Outpatient (CLI) | payer MEDICARE, OTHER | END 2022-01-09 14:07 | disposition home or self-care (01) | LOC: LAB 14:06 | PROVIDERS: ATTEND Family Medicine | DX: R56.9 Unspecified convulsions (principal) | CPT/HCPCS: 36415; 80185 ==

== ENCOUNTER 2022-02-13 14:44 | Outpatient (CLI) | payer MEDICARE, OTHER | END 2022-02-13 14:45 | disposition home or self-care (01) | LOC: LAB 14:44 | PROVIDERS: ATTEND Family Medicine | DX: R56.9 Unspecified convulsions (principal) | CPT/HCPCS: 36415; 80185 ==

== ENCOUNTER 2022-03-15 08:00 | Outpatient (CLI) | payer MEDICARE, OTHER | END 2022-03-15 23:59 | disposition home or self-care (01) | LOC: LAB 08:00 | PROVIDERS: ATTEND Family Medicine | DX: R56.9 Unspecified convulsions (principal) | CPT/HCPCS: 36415; 80185 ==

== ENCOUNTER 2022-06-14 15:22 | Outpatient (CLI) | payer MEDICARE, OTHER | END 2022-06-14 15:23 | disposition home or self-care (01) | LOC: LAB 15:22 | PROVIDERS: ATTEND Urology | DX: C61 Malignant neoplasm of prostate (principal); R56.9 Unspecified convulsions | CPT/HCPCS: 36415; 80185; 84153 ==

== ENCOUNTER 2022-06-26 14:34 | Outpatient (CLI) | payer MEDICARE, OTHER ==
[2022-06-26 18:09] LABS: CALCIUM 9.9 mg/dL (8.5-10.3); CREATININE 0.7 mg/dL (0.6-1.2); POTASSIUM 4.4 mmol/L (3.5-5.0)
[2022-06-26 18:11] LABS: CREATININE,URINE 125.2 mg/dL; MICROALBUM/CREATININE RATIO,UR 57.5 ug/mg (<30.0); MICROALBUMIN,URINE 7.2 mg/dL (0-300.0)
[2022-06-26 22:09] LABS: ESTIMATED AVERAGE GLUCOSE 103 mg/dL (70-100); HEMOGLOBIN A1c% 5.2 % (4.27-6.07)
== END 2022-06-26 14:35 | disposition home or self-care (01) ==
LOC: LAB.N 14:34
PROVIDERS: ATTEND Family Medicine
DX: I10 Essential (primary) hypertension (principal); M99.73 Connective tissue and disc stenosis of intervertebral foramina of lumbar region; M48.061 Spinal stenosis, lumbar region without neurogenic claudication; N40.0 Benign prostatic hyperplasia without lower urinary tract symptoms; F11.20 Opioid dependence, uncomplicated; G89.29 Other chronic pain; K21.9 Gastro-esophageal reflux disease without esophagitis; G60.9 Hereditary and idiopathic neuropathy, unspecified; M19.90 Unspecified osteoarthritis, unspecified site; R73.9 Hyperglycemia, unspecified; G40.909 Epilepsy, unspecified, not intractable, without status epilepticus
CPT/HCPCS: 36415; 80048; 82043; 82570; 83036

== ENCOUNTER 2022-07-15 15:33 | Outpatient (CLI) | payer MEDICARE, OTHER | END 2022-07-15 15:34 | disposition home or self-care (01) | LOC: LAB.N 15:33 | PROVIDERS: ATTEND Family Medicine | DX: R56.9 Unspecified convulsions (principal) | CPT/HCPCS: 36415; 80185 ==

== ENCOUNTER 2022-09-11 13:53 | Outpatient (CLI) | payer MEDICARE, OTHER ==
[2022-09-11 14:19] LABS: CREATININE 0.6 mg/dL (0.6-1.2)
[2022-09-11] MEDS ORDERED: iohexoL-300 100 ML VIAL ONE (14:55)
[2022-09-11] MEDS ORDERED: iohexoL-300 100 ML VIAL IVP ONE (16:37)
--- NOTE | 2022-09-11 17:00 | CT Report ---
PROCEDURE: IVP INDICATIONS: HEMATURIA CONTRAST: 140mL Omni 300 TECHNIQUE: After the administration of intravenous contrast, 5 mm thick sections acquired from the diaphragms to the symphysis. 5 mm thick coronal and sagittal reformats were acquired. For radiation dose reducti on, the following was used: automated exposure control, adjustment of mA and/or kV according to gabe ent size. COMPARISON: 11/29/2021 FINDINGS: Image quality: Excellent. Lung bases: Lung bases are clear. Heart size is normal. Urinary system: Images of the lower pelvis are limited due to artifact from left hip replacement. The right kidney has moderate hydronephrosis and severe ureteral nephrosis through the entire ureter to the UVJ, however no obstructing mass or stone is seen. There is a 1 cm cyst in the left midpole anter iorly. Solid organs: Liver is normal in size and enhancement. Status post splenectomy. Gallbladder is stat us post cholecystectomy Biliary system is non dilated. Pancreas enhances normally. No adrenal nodu les. Peritoneum and bowel: Anastomotic sutures are present in the right lower quadrant. No free fluid or air. Nodes and vessels: No retroperitoneal or mesenteric adenopathy by size criteria. Aorta and inferior vena cava are normal in size. Abdominal wall: No ventral hernias. Pelvis: No pathologic free pelvic fluid. No inguinal hernias or adenopathy. Bones: No suspicious bony lesions. No vertebral body compression fractures. IMPRESSION: Right hydroureteronephrosis, new compared to prior CT on 11/29/2021 with no obstructing m ass or stone identified. However the appearance is suggestive of a right UVJ obstruction and visualiz ation is limited due to hardware artifact from left hip replacement. Recommend cystoscopy for direct visualization. Reviewed by: Dhruv Mir on 09/11/2022 4:58 PM PST Approved by: Dhruv Mir on 09/11/2022 4:58 PM PST Station ID: [id number]
== END 2022-09-11 13:54 | disposition home or self-care (01) ==
LOC: DI 13:53
PROVIDERS: ATTEND Urology
DX: R31.29 Other microscopic hematuria (principal); N13.30 Unspecified hydronephrosis
CPT/HCPCS: 36415; 74178; 82565; 84520; Q9967

== ENCOUNTER 2022-09-17 15:13 | Outpatient (CLI) | payer MEDICARE, OTHER | END 2022-09-17 15:14 | disposition home or self-care (01) | LOC: LAB.N 15:13 | PROVIDERS: ATTEND Family Medicine | DX: R56.9 Unspecified convulsions (principal) | CPT/HCPCS: 36415; 80185 ==

== ENCOUNTER 2022-10-15 13:59 | Outpatient (CLI) | payer MEDICARE, OTHER ==
[2022-10-15 17:50] LABS: BASOPHILS % (AUTO) 0.2 %; EOSINOPHILS % (AUTO) 0.3 %; HCT - HEMATOCRIT 36.1 % (42.0-52.0); HGB - HEMOGLOBIN 11.7 g/dL (14.0-18.0); LYMPHOCYTES # (AUTO) 1.8 10^3/uL (1.5-3.5); LYMPHOCYTES % (AUTO) 17.6 %; MEAN CORPUSCULAR HEMOGLOBIN 32.2 pg (27.0-31.0); MEAN CORPUSCULAR HGB CONC 32.4 g/dL (32.0-36.0); MEAN CORPUSCULAR VOLUME 99.4 fL (80.0-94.0); MEAN PLATELET VOLUME 10.4 fL (7.4-11.4); MONOCYTES # (AUTO) 0.7 10^3/uL (0.0-1.0); MONOCYTES % (AUTO) 7.3 %; NEUTROPHILS # (AUTO) 7.6 10^3/uL (1.5-6.6); NEUTROPHILS % (AUTO) 74.3 %; PLT - PLATELET COUNT 452 10^3/uL (130-450); RED BLOOD COUNT 3.63 10^6/uL (4.70-6.10); RED CELL DISTRIBUTION WIDTH 14.3 % (12.0-15.0); WHITE BLOOD COUNT 10.2 x10^3/uL (4.8-10.8)
== END 2022-10-15 14:00 | disposition home or self-care (01) ==
LOC: LAB.N 13:59
PROVIDERS: ATTEND Urology
DX: R56.9 Unspecified convulsions (principal); Z86.2 Personal history of diseases of the blood and blood-forming organs and certain disorders involving the immune mechanism
CPT/HCPCS: 36415; 80185; 85025

== ENCOUNTER 2022-11-08 13:52 | Outpatient (CLI) | payer MEDICARE, OTHER ==
[2022-11-08 14:19] LABS: BASOPHILS % (AUTO) 0.5 %; EOSINOPHILS # (AUTO) 0.1 10^3/uL (0.0-0.7); EOSINOPHILS % (AUTO) 1.1 %; HCT - HEMATOCRIT 37.3 % (42.0-52.0); HGB - HEMOGLOBIN 11.9 g/dL (14.0-18.0); LYMPHOCYTES # (AUTO) 1.6 10^3/uL (1.5-3.5); LYMPHOCYTES % (AUTO) 18.5 %; MEAN CORPUSCULAR HEMOGLOBIN 32.2 pg (27.0-31.0); MEAN CORPUSCULAR HGB CONC 31.9 g/dL (32.0-36.0); MEAN CORPUSCULAR VOLUME 101.1 fL (80.0-94.0); MEAN PLATELET VOLUME 9.7 fL (7.4-11.4); MONOCYTES # (AUTO) 0.5 10^3/uL (0.0-1.0); MONOCYTES % (AUTO) 5.7 %; NEUTROPHILS # (AUTO) 6.6 10^3/uL (1.5-6.6); PLT - PLATELET COUNT 297 10^3/uL (130-450); RED BLOOD COUNT 3.69 10^6/uL (4.70-6.10); RED CELL DISTRIBUTION WIDTH 14.5 % (12.0-15.0); WHITE BLOOD COUNT 8.9 x10^3/uL (4.8-10.8)
[2022-11-08 14:32] LABS: ALBUMIN 3.9 g/dL (3.2-5.5); ALBUMIN/GLOBULIN RATIO 1.1 (1.0-2.2); BILIRUBIN,TOTAL 0.5 mg/dL (0.2-1.0); CALCIUM 10.1 mg/dL (8.5-10.3); CREATININE 0.7 mg/dL (0.6-1.2); POTASSIUM 4.5 mmol/L (3.5-5.0); TOTAL PROTEIN 7.4 g/dL (6.7-8.2)
== END 2022-11-08 13:53 | disposition home or self-care (01) ==
LOC: LAB 13:52
PROVIDERS: ATTEND Urology
DX: C67.6 Malignant neoplasm of ureteric orifice (principal)
CPT/HCPCS: 36415; 80053; 85025

== ENCOUNTER 2022-11-08 13:53 | Outpatient (CLI) | payer MEDICARE, OTHER ==
[2022-11-08] MEDS ORDERED: iohexoL-300 100 ML VIAL ONE (14:02)
[2022-11-08] MEDS ORDERED: DIATRIZOATE MEGLU/DIATRIZO SOD 30 ML BOTTLE PO ONE ×2 (14:09→19:23)
[2022-11-08] MEDS ORDERED: iohexoL-300 100 ML VIAL IVP ONE (19:22)
--- NOTE | 2022-11-08 20:40 | CT Report ---
PROCEDURE: CHEST WO INDICATIONS: MALIGNANT NEOPLASM OF URETERIC ORIFICE TECHNIQUE: Noncontrast 1mm axial images were acquired from the pulmonary apices to the posterior costophrenic an gles. Axial 5 mm soft tissue kernel reconstructions were performed as well as 8 mm axial MIP and cor onal and sagittal 5 mm reformations. For radiation dose reduction, the following was used: automate d exposure control, adjustment of mA and/or kV according to patient size. COMPARISON: 09/11/2022 FINDINGS: Image quality: Good Lungs and pleura: No consolidations. Mild basal scarring/atelectasis. Mediastinum, heart, and esophagus: Cardiomegaly. No hiatal hernia. Small pericardial effusion or thic kening, similar. Coronary calcifications. No pathologic adenopathy by size criteria. Chest wall and thyroid: Unremarkable Bones: Degenerative changes without acute or suspicious osseous finding. IMPRESSION: No active disease identified in the chest. Abdomen findings are separately dictated. Reviewed by: Jhonny Rasmussen MD on 11/08/2022 8:38 PM PST Approved by: Jhonny Rasmussen MD on 11/08/2022 8:38 PM PST Station ID: [id number]
--- NOTE | 2022-11-08 20:47 | CT Report ---
PROCEDURE: ABDOMEN/PELVIS W INDICATIONS: MALIGNANT NEOPLASM OF URETERIC ORIFICE CONTRAST: 100ml omni 300 TECHNIQUE: After the administration of oral and IV contrast, 5 mm thick sections acquired from the diaphragms to the symphysis. 5 mm thick coronal and sagittal reformats were acquired. For radiation dose reducti on, the following was used: automated exposure control, adjustment of mA and/or kV according to gabe ent size. COMPARISON: 09/11/2022 FINDINGS: Image quality: Good Lower chest: Separately dictated Solid organs: Liver is unremarkable. Gallbladder is absent. No pathologic dilation of the biliary tree or pancreatic duct, post cholecyste ctomy state. Calcifications around the pancreatic tail. This was seen previously. No adrenal nodules. Subcentimeter lesions are too small to characterize. Suspected renal cysts. Left pelviectasis without hydronephrosis. A right ureter stent is in place, with mild ureter dilation around it. The pigtail at the other end i s in the bladder. Vessels and lymph nodes: The main portal vein is patent. No abdominal aortic aneurysm. No pathologic adenopathy by size criteria. Suspected hernia plug in the left inguinal region. This is stable. Bowel and peritoneum: No small bowel obstruction. No pathologic ascites. Postsurgical changes in the anterior abdominal wall, stable from prior Body wall: Anterior abdominal wall postsurgical changes. Pelvis: Multifocal bladder masses, for example in the anterior left region measuring 1.7 cm. These ar e better seen on today's images. There is mild circumferential bladder wall thickening and perivesicu lar stranding. Please note the bladder is obscured by metallic artifact. The prostate not well seen. Bones: Left hip arthroplasty. Degenerative changes. No acute or suspicious finding. IMPRESSION: Multifocal bladder masses, better seen on today's study. Correlate with cystoscopy results. A right u reter stent is in place, with minimal right ureter dilation of today's study, decreased hydronephrosi s compared to prior. Other findings as above. The pelvis is obscured by metallic artifact. Reviewed by: Jhonny Rasmussen MD on 11/08/2022 8:45 PM PST Approved by: Jhonny Rasmussen MD on 11/08/2022 8:45 PM PST Station ID: [id number]
== END 2022-11-08 13:54 | disposition home or self-care (01) ==
LOC: DI 13:53
PROVIDERS: ATTEND Urology
DX: C67.6 Malignant neoplasm of ureteric orifice (principal); N32.89 Other specified disorders of bladder; N13.30 Unspecified hydronephrosis; Z96.0 Presence of urogenital implants
CPT/HCPCS: 36415; 71250; 74177; 80053; 85025; Q9963; Q9967

== ENCOUNTER 2022-11-17 16:59 | Outpatient (CLI) | payer MEDICARE, OTHER | END 2022-11-17 17:00 | disposition critical access hospital (66) | LOC: EMS 16:59 | DX: R33.9 Retention of urine, unspecified (principal); R39.15 Urgency of urination; R10.2 Pelvic and perineal pain; Z96.0 Presence of urogenital implants; Z85.51 Personal history of malignant neoplasm of bladder | CPT/HCPCS: A0425; A0429 ==

== ENCOUNTER 2022-11-17 17:21 | Emergency (ER) | payer MEDICARE, OTHER ==
--- OUTSIDE RECORDS SUMMARY | 2022-11-17 17:39 | EXTERNAL MEDICAL SUMMARY RPT | Continuity of Care Document ---
:1940 Author Organization [place] Address [address] [place] [address] Phone Care Team Providers Name Role Phone Roof, Norberto Unavailable Unavailable Allergies and Intolerances date description facility type (no date) Mild [facility] (unknown) (no date) acetaminophen [facility] (unknown) (no date) heparin [facility] (unknown) (no date) morphine [facility] (unknown) Encounters No information. Functional Status No information. Immunizations No information. Medications date description facility 2022-10-05 00:00 Oxycodone [facility] 2022-10-05 00:00 Mirabegron [facility] 2022-10-05 00:00 Phenytoin [facility] 2022-10-05 00:00 Oxycodone Myristate [facility] 2022-10-05 00:00 Aspirin [facility] 2022-10-05 00:00 Famotidine [facility] 2022-10-05 00:00 Finasteride [facility] Problems date description facility 2022-10-05 00:00 Contusion of right hip [facility] 2022-10-05 00:00 Sprain of knee [facility] 2022-10-30 09:11 Pain in left hip [facility] Procedures date description facility 2022-10-05 00:00 XR knee LT 3V [facility] 2022-10-05 00:00 Unilateral x-ray of hip, two views, wit h x-ray [facility] of pelvis Results/Labs test date author facility value unit interpret ation Result panel 1 (unknown) (no (unknown) (unknown) (no value) (units (unk nown) date) unknown) (unknown) (no (unknown) (unknown) 10/05/22 (units (unkno wn) date) unknown) (unknown) (no (unknown) (unknown) [address] (units (unknown) date) unknown) (unknown) (no (unknown) (unknown) [id number] (units (unkno wn) date) unknown) (unknown) (no (unknown) (unknown) Accession (units (unkn own) date) Number: unknown) [id number] (unknown) (no (unknown) (unknown) Age/Sex: 82 / M (units (unknown) date) Date of Service: unknown) (unknown) (no (unknown) (unknown) [place] (units ( unknown) date) [id number] unknown) (unknown) (no (unknown) (unknown) Approved by: (units (u nknown) date) luzmaria Gilliam M.D. on 10/05/2022 at 14:12 (unknown) (no (unknown) (unknown) Bones: No (units (unkn own) date) fractures or unknown) dislocations. No suspicious bony lesions. The (unknown) (no (unknown) (unknown) COMPARISON: (units (un known) date) None. 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 No fracture. (unknown) (no (unknown) (unknown) FINDINGS: (units (unkn own) date) unknown) (unknown) (no (unknown) (unknown) IMPRESSION: (units (un known) date) unknown) (unknown) (no (unknown) (unknown) INDICATIONS: (units (u nknown) date) fall unknown) (unknown) (no (unknown) (unknown) [facility] (units (unknown) date) unknown) (unknown) (no (unknown) (unknown) Loc: ED (units (unkno wn) date) unknown) (unknown) (no (unknown) (unknown) Ordering (units (unkno wn) date) Provider: unknown) Senia Hayden D.O. (unknown) (no (unknown) (unknown) PROCEDURE: XR (units ( unknown) date) HIP W PEL IF DONE unknown) LT 2V (unknown) (no (unknown) (unknown) Patient: (units (unkno wn) date) Rodrigo Chavez unknown) MR#: [id number] (unknown) (no (unknown) (unknown) Procedure: XR (units ( unknown) date) hip w pel if done unknown) LT 2V (unknown) (no (unknown) (unknown) Signed (units (unkno wn) date) unknown) (unknown) (no (unknown) (unknown) Soft tissues: No (units (unknown) date) suspicious soft unknown) tissue calcifications or masses. (unknown) (no (unknown) (unknown) TECHNIQUE: 2 (units (u nknown) date) views of the hip unknown) were acquired. (unknown) (no (unknown) (unknown) XRay Report (units (un known) date) unknown) (unknown) (no (unknown) (unknown) joint space (units (un known) date) unknown) (unknown) (no (unknown) (unknown) narrowing. (units (unk nown) date) Degenerative unknown) changes noted lower lumbar spine (unknown) (no (unknown) (unknown) ring appears (units (u nknown) date) intact. 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 (unknown) (no (unknown) (unknown) visualized (units (unk nown) date) pelvic unknown) Result panel 2 (unknown) (no (unknown) (unknown) (no value) (units (unk nown) date) unknown) (unknown) (no (unknown) (unknown) 10/05/22 (units (unkno wn) date) unknown) (unknown) (no (unknown) (unknown) [address] [place] [address] (units (unknown) date) unknown) (unknown) (no (unknown) (unknown) [id number] (units (unkno wn) date) unknown) (unknown) (no (unknown) (unknown) Accession Number: (units (unknown) date) [id number] unknown) (unknown) (no (unknown) (unknown) Age/Sex: 82 / M (units (unknown) date) Date of Service: unknown) (unknown) (no (unknown) (unknown) MARIA FERNANDA Johnson (units ( unknown) date) [id number] unknown) (unknown) (no (unknown) (unknown) Approved by: Silverio (units (unknown) date) Papito Orta on unknown) 10/05/2022 at 14:17 (unknown) (no (unknown) (unknown) 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 No (unknown) (no (unknown) (unknown) Bones: No (units (unkn own) date) fractures or unknown) dislocations. No suspicious bony lesions. Generalized (unknown) (no (unknown) (unknown) COMPARISON: None. (units (unknown) date) unknown) (unknown) (no (unknown) (unknown) : 1940 (units (unknown) date) Acct:[id number] unknown) (unknown) (no (unknown) (unknown) FINDINGS: (units (unkn own) date) unknown) (unknown) (no (unknown) (unknown) IMPRESSION: (units (un known) date) unknown) (unknown) (no (unknown) (unknown) INDICATIONS: Pain (units (unknown) date) from fall unknown) (unknown) (no (unknown) (unknown) [facility] (units (unknown) date) unknown) (unknown) (no (unknown) (unknown) Loc: ED (units (unkno wn) date) unknown) (unknown) (no (unknown) (unknown) Ordering (units (unkno wn) date) Provider: unknown) Senia Hayden D.O. (unknown) (no (unknown) (unknown) PROCEDURE: XR (units ( unknown) date) KNEE LT 3V unknown) (unknown) (no (unknown) (unknown) Patient: (units (unkno wn) date) Rodrigo Chavez MR#: unknown) [id number] (unknown) (no (unknown) (unknown) Procedure: XR (units ( unknown) date) knee LT 3V unknown) (unknown) (no (unknown) (unknown) Signed (units (unkno wn) date) unknown) (unknown) (no (unknown) (unknown) Soft tissues: No (units (unknown) date) joint effusion. No unknown) suspicious soft tissue calcifications. (unknown) (no (unknown) (unknown) TECHNIQUE: 3 (units (u nknown) date) views of the knee unknown) were acquired. (unknown) (no (unknown) (unknown) XRay Report (units (un known) date) unknown) (unknown) (no (unknown) (unknown) decrease (units (unkno wn) date) unknown) (unknown) (no (unknown) (unknown) fracture. (units (unkn own) date) unknown) (unknown) (no (unknown) (unknown) in osseous (units (unk nown) date) mineralization unknown) noted. Moderate medial lateral compartmental joint (unknown) (no (unknown) (unknown) narrowing with (units (unknown) date) meniscal unknown) calcifications noted. Patellofemoral joint space is (unknown) (no (unknown) (unknown) preserved. (units (unk nown) date) unknown) (unknown) (no (unknown) (unknown) space (units (unkno wn) date) unknown) Result panel 3 (unknown) (no (unknown) (unknown) (no value) (units (unk nown) date) unknown) (unknown) (no (unknown) (unknown) 1-3) (units (unkno wn) date) unknown) (unknown) (no (unknown) (unknown) 100 mg PO BID (units ( unknown) date) unknown) (unknown) (no (unknown) (unknown) 10/05/22 13:28 (units (unknown) date) unknown) (unknown) (no (unknown) (unknown) 10/05/22 14:18 (units (unknown) date) unknown) (unknown) (no (unknown) (unknown) 10/05/22 (units (unkno wn) date) unknown) (unknown) (no (unknown) (unknown) 12hr(DON'T CRUSH) (units (unknown) date) (Xtampza ER) unknown) (unknown) (no (unknown) (unknown) 13.5 mg PO DAILY (units (unknown) date) unknown) (unknown) (no (unknown) (unknown) [id number] (units (unkno wn) date) unknown) (unknown) (no (unknown) (unknown) 13:19 (units (unkno wn) date) unknown) (unknown) (no (unknown) (unknown) 20 mg PO BID (units (u nknown) date) unknown) (unknown) (no (unknown) (unknown) 25 mg PO HS Qty: (units (unknown) date) 60 0RF unknown) (unknown) (no (unknown) (unknown) 5 mg PO DAILY (units ( unknown) date) unknown) (unknown) (no (unknown) (unknown) 5 mg PO Q4H PRN (units (unknown) date) (Reason: Pain unknown) (Scale Score 1-3)) (unknown) (no (unknown) (unknown) 50 mg PO DAILY (units (unknown) date) unknown) (unknown) (no (unknown) (unknown) 81 mg PO DAILY (units (unknown) date) unknown) (unknown) (no (unknown) (unknown) Age/Sex: 82 / M (units (unknown) date) unknown) (unknown) (no (unknown) (unknown) Allergies (units (unkn own) date) unknown) (unknown) (no (unknown) (unknown) Allergy/AdvReac (units (unknown) date) Type Severity unknown) Reaction Status Date / Time (unknown) (no (unknown) (unknown) Blood Pressure (units (unknown) date) 159/77 H 10/05/22 unknown) 13:19 (unknown) (no (unknown) (unknown) Blood Pressure (units (unknown) date) 159/77 H unknown) (unknown) (no (unknown) (unknown) Chief Complaint: (units (unknown) date) Extremity Injury, unknown) Lower (unknown) (no (unknown) (unknown) Course (units (unkno wn) date) unknown) (unknown) (no (unknown) (unknown) : 1940 (units (unknown) date) Acct:[id number] unknown) (unknown) (no (unknown) (unknown) DOSES (units (unkno wn) date) unknown) (unknown) (no (unknown) (unknown) Date of Service: (units (unknown) date) 10/05/22 unknown) (unknown) (no (unknown) (unknown) Departure (units (unkn own) date) unknown) (unknown) (no (unknown) (unknown) Discharge Plan (units (unknown) date) unknown) (unknown) (no (unknown) (unknown) ED Orders (units (unkn own) date) unknown) (unknown) (no (unknown) (unknown) ER Physician: (units ( unknown) date) Senia Hayden unknown) D.O. (unknown) (no (unknown) (unknown) Emergency Report (units (unknown) date) unknown) (unknown) (no (unknown) (unknown) Exam (units (unkno wn) date) unknown) (unknown) (no (unknown) (unknown) FROM (units (unkno wn) date) unknown) (unknown) (no (unknown) (unknown) General (units (unkno wn) date) unknown) (unknown) (no (unknown) (unknown) HEPARIN FLUSH (units ( unknown) date) Allergy Unknown unknown) WAS Uncoded 10/05/22 13:25 (unknown) (no (unknown) (unknown) HOSPITALIZATION (units (unknown) date) unknown) (unknown) (no (unknown) (unknown) HPI - Extremity (units (unknown) date) Injury (Lower) unknown) (unknown) (no (unknown) (unknown) Home Medications (units (unknown) date) unknown) (unknown) (no (unknown) (unknown) Initial Vital (units ( unknown) date) Signs unknown) (unknown) (no (unknown) (unknown) Initial Vital (units ( unknown) date) Signs: unknown) (unknown) (no (unknown) (unknown) [facility] (units (unknown) date) [address] unknown) [place] [address] (unknown) (no (unknown) (unknown) Medication (units (unk nown) date) Instructions unknown) Recorded Confirmed (unknown) (no (unknown) (unknown) Medication (units (unk nown) date) Instructions unknown) Recorded (unknown) (no (unknown) (unknown) Mode of arrival: (units (unknown) date) Wheelchair unknown) (unknown) (no (unknown) (unknown) Myrbetriq 50 mg (units (unknown) date) Tablet Extended unknown) Release 24 Hr (unknown) (no (unknown) (unknown) No Action (units (unkn own) date) unknown) (unknown) (no (unknown) (unknown) Ordered: (units (unkno wn) date) unknown) (unknown) (no (unknown) (unknown) Orders (units (unkno wn) date) unknown) (unknown) (no (unknown) (unknown) Oxygen Delivery (units (unknown) date) Method 10/05/22 unknown) 13:19 (unknown) (no (unknown) (unknown) Oxygen Delivery (units (unknown) date) Method Room Air unknown) (unknown) (no (unknown) (unknown) PREVIOUS (units (unkno wn) date) unknown) (unknown) (no (unknown) (unknown) Patient History (units (unknown) date) unknown) (unknown) (no (unknown) (unknown) Patient: (units (unkno wn) date) Rodrigo Chavez MR#: unknown) [id number] (unknown) (no (unknown) (unknown) Prescriptions: (units (unknown) date) unknown) (unknown) (no (unknown) (unknown) Previous Rx's (units ( unknown) date) unknown) (unknown) (no (unknown) (unknown) Pulse Oximetry 98 (units (unknown) date) 10/05/22 13:19 unknown) (unknown) (no (unknown) (unknown) Pulse Oximetry 98 (units (unknown) date) unknown) (unknown) (no (unknown) (unknown) Pulse Rate 69 (units ( unknown) date) 10/05/22 13:19 unknown) (unknown) (no (unknown) (unknown) Pulse Rate 69 (units ( unknown) date) unknown) (unknown) (no (unknown) (unknown) RECORDED (units (unkno wn) date) unknown) (unknown) (no (unknown) (unknown) Referrals: (units (unk nown) date) unknown) (unknown) (no (unknown) (unknown) Related Data (units (u nknown) date) unknown) (unknown) (no (unknown) (unknown) Respiratory Rate (units (unknown) date) 17 10/05/22 13:19 unknown) (unknown) (no (unknown) (unknown) Respiratory Rate (units (unknown) date) 17 unknown) (unknown) (no (unknown) (unknown) Norberto Newby MD (units (unknown) date) [Primary Care unknown) Provider] (unknown) (no (unknown) (unknown) Rx Instructions: (units (unknown) date) unknown) (unknown) (no (unknown) (unknown) Signed By: (units (unk nown) date) unknown) (unknown) (no (unknown) (unknown) Smoking Status: (units (unknown) date) Never smoker unknown) (unknown) (no (unknown) (unknown) Social History (units (unknown) date) unknown) (unknown) (no (unknown) (unknown) Source: patient (units (unknown) date) unknown) (unknown) (no (unknown) (unknown) Stated Complaint: (units (unknown) date) GLF on Lside pain unknown) has hip replaced dnt feel right' (unknown) (no (unknown) (unknown) Substance Use (units ( unknown) date) Type: marijuana unknown) (unknown) (no (unknown) (unknown) Temperature 98.5 (units (unknown) date) F 10/05/22 13:19 unknown) (unknown) (no (unknown) (unknown) Temperature 98.5 (units (unknown) date) F unknown) (unknown) (no (unknown) (unknown) Time Seen by (units (u nknown) date) Provider: 10/05/22 unknown) 17:23 (unknown) (no (unknown) (unknown) Vital Signs - 8 (units (unknown) date) hr unknown) (unknown) (no (unknown) (unknown) Vital Signs (units (un known) date) unknown) (unknown) (no (unknown) (unknown) Vital signs: (units (u nknown) date) unknown) (unknown) (no (unknown) (unknown) WITH LARGE (units (unk nown) date) unknown) (unknown) (no (unknown) (unknown) XR hip w pel if (units (unknown) date) done LT 2V Stat unknown) (unknown) (no (unknown) (unknown) XR knee LT 3V (units ( unknown) date) Stat unknown) (unknown) (no (unknown) (unknown) Xtampza ER 13.5 (units (unknown) date) mg unknown) Cap,Sprinkl,Er12hr (Dont Crush) (unknown) (no (unknown) (unknown) acetaminophen (units ( unknown) date) [ACETAMINOPHEN] unknown) Allergy Mild ITCHING Verified 10/05/22 13:25 (unknown) (no (unknown) (unknown) alcohol intake (units (unknown) date) frequency: other unknown) (unknown) (no (unknown) (unknown) aspirin 81 mg (units ( unknown) date) tablet,delayed 81 unknown) mg PO DAILY 10/05/22 10/05/22 (unknown) (no (unknown) (unknown) aspirin (units (unkno wn) date) [Aspir-81] 81 mg unknown) Tablet,Delayed Release (Dr/Ec) (unknown) (no (unknown) (unknown) capsule sprinkle (units (unknown) date) extend release unknown) (unknown) (no (unknown) (unknown) famotidine 20 mg (units (unknown) date) Tablet unknown) (unknown) (no (unknown) (unknown) famotidine 20 mg (units (unknown) date) tablet 20 mg PO unknown) BID 10/05/22 10/05/22 (unknown) (no (unknown) (unknown) finasteride 5 mg (units (unknown) date) Tablet unknown) (unknown) (no (unknown) (unknown) finasteride 5 mg (units (unknown) date) tablet 5 mg PO unknown) DAILY 10/05/22 10/05/22 (unknown) (no (unknown) (unknown) heparin [HEPARIN] (units (unknown) date) Allergy Unknown unknown) Verified 10/05/22 13:25 (unknown) (no (unknown) (unknown) mirabegron 50 mg (units (unknown) date) tablet,extended 50 unknown) mg PO DAILY 10/05/22 10/05/22 (unknown) (no (unknown) (unknown) morphine (units (unkno wn) date) [MORPHINE] AdvReac unknown) Mild NAUSEA Verified 10/05/22 13:25 (unknown) (no (unknown) (unknown) must administer (units (unknown) date) with a meal/food unknown) (unknown) (no (unknown) (unknown) oxycodone 5 mg (units (unknown) date) Capsule unknown) (unknown) (no (unknown) (unknown) oxycodone 5 mg (units (unknown) date) capsule 5 mg PO unknown) Q4H PRN Pain (Scale Score 10/05/22 10/05/22 (unknown) (no (unknown) (unknown) oxycodone (units (unkn own) date) myristate 13.5 mg unknown) 13.5 mg PO DAILY 10/05/22 10/05/22 (unknown) (no (unknown) (unknown) phenytoin 100 (units ( unknown) date) mg/4 mL Suspension unknown) (unknown) (no (unknown) (unknown) phenytoin 100 (units ( unknown) date) mg/4 mL oral 100 unknown) mg PO BID 10/05/22 10/05/22 (unknown) (no (unknown) (unknown) release 24 hr (units ( unknown) date) (Myrbetriq) unknown) (unknown) (no (unknown) (unknown) release (units (unkno wn) date) unknown) (unknown) (no (unknown) (unknown) suspension (units (unk nown) date) unknown) (unknown) (no (unknown) (unknown) topiramate 25 mg (units (unknown) date) tablet (Topamax) unknown) 25 mg PO HS ##60 05/24/16 (unknown) (no (unknown) (unknown) topiramate (units (unk nown) date) [Topamax] 25 MG unknown) tablet Result panel 4 (unknown) (no (unknown) (unknown) (no value) (units (unk nown) date) unknown) (unknown) (no (unknown) (unknown) 1-3) (units (unkno wn) date) unknown) (unknown) (no (unknown) (unknown) 100 mg PO BID (units ( unknown) date) unknown) (unknown) (no (unknown) (unknown) 10/05/22 13:28 (units (unknown) date) unknown) (unknown) (no (unknown) (unknown) 10/05/22 14:18 (units (unknown) date) unknown) (unknown) (no (unknown) (unknown) 10/05/22 (units (unkno wn) date) unknown) (unknown) (no (unknown) (unknown) 12hr(DON'T CRUSH) (units (unknown) date) (Xtampza ER) unknown) (unknown) (no (unknown) (unknown) 13.5 mg PO DAILY (units (unknown) date) unknown) (unknown) (no (unknown) (unknown) [id number] (units (unkno wn) date) unknown) (unknown) (no (unknown) (unknown) 13:19 (units (unkno wn) date) unknown) (unknown) (no (unknown) (unknown) 20 mg PO BID (units (u nknown) date) unknown) (unknown) (no (unknown) (unknown) 25 mg PO HS Qty: (units (unknown) date) 60 0RF unknown) (unknown) (no (unknown) (unknown) 5 mg PO DAILY (units ( unknown) date) unknown) (unknown) (no (unknown) (unknown) 5 mg PO Q4H PRN (units (unknown) date) (Reason: Pain unknown) (Scale Score 1-3)) (unknown) (no (unknown) (unknown) 50 mg PO DAILY (units (unknown) date) unknown) (unknown) (no (unknown) (unknown) 81 mg PO DAILY (units (unknown) date) unknown) (unknown) (no (unknown) (unknown) Age/Sex: 82 / M (units (unknown) date) unknown) (unknown) (no (unknown) (unknown) Allergies (units (unkn own) date) unknown) (unknown) (no (unknown) (unknown) Allergy/AdvReac (units (unknown) date) Type Severity unknown) Reaction Status Date / Time (unknown) (no (unknown) (unknown) Blood Pressure (units (unknown) date) 159/77 H 10/05/22 unknown) 13:19 (unknown) (no (unknown) (unknown) Blood Pressure (units (unknown) date) 159/77 H unknown) (unknown) (no (unknown) (unknown) Chief Complaint: (units (unknown) date) Extremity Injury, unknown) Lower (unknown) (no (unknown) (unknown) Course (units (unkno wn) date) unknown) (unknown) (no (unknown) (unknown) : 1940 (units (unknown) date) Acct:[id number] unknown) (unknown) (no (unknown) (unknown) DOSES (units (unkno wn) date) unknown) (unknown) (no (unknown) (unknown) Date of Service: (units (unknown) date) 10/05/22 unknown) (unknown) (no (unknown) (unknown) Departure (units (unkn own) date) unknown) (unknown) (no (unknown) (unknown) Discharge Plan (units (unknown) date) unknown) (unknown) (no (unknown) (unknown) Discontinued (units (u nknown) date) Medications unknown) (unknown) (no (unknown) (unknown) ED Orders (units (unkn own) date) unknown) (unknown) (no (unknown) (unknown) ER Physician: (units ( unknown) date) Senia Hayden unknown) D.O. (unknown) (no (unknown) (unknown) Emergency Report (units (unknown) date) unknown) (unknown) (no (unknown) (unknown) Exam (units (unkno wn) date) unknown) (unknown) (no (unknown) (unknown) FROM (units (unkno wn) date) unknown) (unknown) (no (unknown) (unknown) General (units (unkno wn) date) unknown) (unknown) (no (unknown) (unknown) HEPARIN FLUSH (units ( unknown) date) Allergy Unknown unknown) WAS Uncoded 10/05/22 13:25 (unknown) (no (unknown) (unknown) HOSPITALIZATION (units (unknown) date) unknown) (unknown) (no (unknown) (unknown) HPI - Extremity (units (unknown) date) Injury (Lower) unknown) (unknown) (no (unknown) (unknown) Home Medications (units (unknown) date) unknown) (unknown) (no (unknown) (unknown) Hydromorphone HCl (units (unknown) date) (Hydromorphone 1 unknown) Mg Inj) 1 mg IM NOW ONE (unknown) (no (unknown) (unknown) Initial Vital (units ( unknown) date) Signs unknown) (unknown) (no (unknown) (unknown) Initial Vital (units ( unknown) date) Signs: unknown) (unknown) (no (unknown) (unknown) [facility] (units (unknown) date) [address] [place] [address] unknown) [place] [address] (unknown) (no (unknown) (unknown) Medication (units (unk nown) date) Instructions unknown) Recorded Confirmed (unknown) (no (unknown) (unknown) Medication (units (unk nown) date) Instructions unknown) Recorded (unknown) (no (unknown) (unknown) Mode of arrival: (units (unknown) date) Wheelchair unknown) (unknown) (no (unknown) (unknown) Myrbetriq 50 mg (units (unknown) date) Tablet Extended unknown) Release 24 Hr (unknown) (no (unknown) (unknown) No Action (units (unkn own) date) unknown) (unknown) (no (unknown) (unknown) Ordered: (units (unkno wn) date) unknown) (unknown) (no (unknown) (unknown) Orders (units (unkno wn) date) unknown) (unknown) (no (unknown) (unknown) Oxygen Delivery (units (unknown) date) Method 10/05/22 unknown) 13:19 (unknown) (no (unknown) (unknown) Oxygen Delivery (units (unknown) date) Method Room Air unknown) (unknown) (no (unknown) (unknown) PREVIOUS (units (unkno wn) date) unknown) (unknown) (no (unknown) (unknown) Patient History (units (unknown) date) unknown) (unknown) (no (unknown) (unknown) Patient: (units (unkno wn) date) Rodrigo Chavez MR#: unknown) M0003 (unknown) (no (unknown) (unknown) Prescriptions: (units (unknown) date) unknown) (unknown) (no (unknown) (unknown) Previous Rx's (units ( unknown) date) unknown) (unknown) (no (unknown) (unknown) Pulse Oximetry 98 (units (unknown) date) 10/05/22 13:19 unknown) (unknown) (no (unknown) (unknown) Pulse Oximetry 98 (units (unknown) date) unknown) (unknown) (no (unknown) (unknown) Pulse Rate 69 (units ( unknown) date) 10/05/22 13:19 unknown) (unknown) (no (unknown) (unknown) Pulse Rate 69 (units ( unknown) date) unknown) (unknown) (no (unknown) (unknown) RECORDED (units (unkno wn) date) unknown) (unknown) (no (unknown) (unknown) Referrals: (units (unk nown) date) unknown) (unknown) (no (unknown) (unknown) Related Data (units (u nknown) date) unknown) (unknown) (no (unknown) (unknown) Respiratory Rate (units (unknown) date) 17 10/05/22 13:19 unknown) (unknown) (no (unknown) (unknown) Respiratory Rate (units (unknown) date) 17 unknown) (unknown) (no (unknown) (unknown) Norberto Newby MD (units (unknown) date) [Primary Care unknown) Provider] (unknown) (no (unknown) (unknown) Rx Instructions: (units (unknown) date) unknown) (unknown) (no (unknown) (unknown) Signed By: (units (unk nown) date) unknown) (unknown) (no (unknown) (unknown) Smoking Status: (units (unknown) date) Never smoker unknown) (unknown) (no (unknown) (unknown) Social History (units (unknown) date) unknown) (unknown) (no (unknown) (unknown) Source: patient (units (unknown) date) unknown) (unknown) (no (unknown) (unknown) Stated Complaint: (units (unknown) date) GLF on Lside pain unknown) has hip replaced dnt feel right' (unknown) (no (unknown) (unknown) Stop: 10/05/22 (units (unknown) date) 17:44 unknown) (unknown) (no (unknown) (unknown) Substance Use (units ( unknown) date) Type: marijuana unknown) (unknown) (no (unknown) (unknown) Temperature 98.5 (units (unknown) date) F 10/05/22 13:19 unknown) (unknown) (no (unknown) (unknown) Temperature 98.5 (units (unknown) date) F unknown) (unknown) (no (unknown) (unknown) Time Seen by (units (u nknown) date) Provider: 10/05/22 unknown) 17:23 (unknown) (no (unknown) (unknown) Vital Signs - 8 (units (unknown) date) hr unknown) (unknown) (no (unknown) (unknown) Vital Signs (units (un known) date) unknown) (unknown) (no (unknown) (unknown) Vital signs: (units (u nknown) date) unknown) (unknown) (no (unknown) (unknown) WITH LARGE (units (unk nown) date) unknown) (unknown) (no (unknown) (unknown) XR hip w pel if (units (unknown) date) done LT 2V Stat unknown) (unknown) (no (unknown) (unknown) XR knee LT 3V (units ( unknown) date) Stat unknown) (unknown) (no (unknown) (unknown) Xtampza ER 13.5 (units (unknown) date) mg unknown) Cap,Sprinkl,Er12hr (Dont Crush) (unknown) (no (unknown) (unknown) acetaminophen (units ( unknown) date) [ACETAMINOPHEN] unknown) Allergy Mild ITCHING Verified 10/05/22 13:25 (unknown) (no (unknown) (unknown) alcohol intake (units (unknown) date) frequency: other unknown) (unknown) (no (unknown) (unknown) aspirin 81 mg (units ( unknown) date) tablet,delayed 81 unknown) mg PO DAILY 10/05/22 10/05/22 (unknown) (no (unknown) (unknown) aspirin (units (unkno wn) date) [Aspir-81] 81 mg unknown) Tablet,Delayed Release (Dr/Ec) (unknown) (no (unknown) (unknown) capsule sprinkle (units (unknown) date) extend release unknown) (unknown) (no (unknown) (unknown) famotidine 20 mg (units (unknown) date) Tablet unknown) (unknown) (no (unknown) (unknown) famotidine 20 mg (units (unknown) date) tablet 20 mg PO unknown) BID 10/05/22 10/05/22 (unknown) (no (unknown) (unknown) finasteride 5 mg (units (unknown) date) Tablet unknown) (unknown) (no (unknown) (unknown) finasteride 5 mg (units (unknown) date) tablet 5 mg PO unknown) DAILY 10/05/22 10/05/22 (unknown) (no (unknown) (unknown) heparin [HEPARIN] (units (unknown) date) Allergy Unknown unknown) Verified 10/05/22 13:25 (unknown) (no (unknown) (unknown) mirabegron 50 mg (units (unknown) date) tablet,extended 50 unknown) mg PO DAILY 10/05/22 10/05/22 (unknown) (no (unknown) (unknown) morphine (units (unkno wn) date) [MORPHINE] AdvReac unknown) Mild NAUSEA Verified 10/05/22 13:25 (unknown) (no (unknown) (unknown) must administer (units (unknown) date) with a meal/food unknown) (unknown) (no (unknown) (unknown) oxycodone 5 mg (units (unknown) date) Capsule unknown) (unknown) (no (unknown) (unknown) oxycodone 5 mg (units (unknown) date) capsule 5 mg PO unknown) Q4H PRN Pain (Scale Score 10/05/22 10/05/22 (unknown) (no (unknown) (unknown) oxycodone (units (unkn own) date) myristate 13.5 mg unknown) 13.5 mg PO DAILY 10/05/22 10/05/22 (unknown) (no (unknown) (unknown) phenytoin 100 (units ( unknown) date) mg/4 mL Suspension unknown) (unknown) (no (unknown) (unknown) phenytoin 100 (units ( unknown) date) mg/4 mL oral 100 unknown) mg PO BID 10/05/22 10/05/22 (unknown) (no (unknown) (unknown) release 24 hr (units ( unknown) date) (Myrbetriq) unknown) (unknown) (no (unknown) (unknown) release (units (unkno wn) date) unknown) (unknown) (no (unknown) (unknown) suspension (units (unk nown) date) unknown) (unknown) (no (unknown) (unknown) topiramate 25 mg (units (unknown) date) tablet (Topamax) unknown) 25 mg PO HS ##60 05/24/16 (unknown) (no (unknown) (unknown) topiramate (units (unk nown) date) [Topamax] 25 MG unknown) tablet Result panel 5 (unknown) (no (unknown) (unknown) (no value) (units (unk nown) date) unknown) (unknown) (no (unknown) (unknown) 1-3) (units (unkno wn) date) unknown) (unknown) (no (unknown) (unknown) 100 mg PO BID (units ( unknown) date) unknown) (unknown) (no (unknown) (unknown) 10/05/22 13:28 (units (unknown) date) unknown) (unknown) (no (unknown) (unknown) 10/05/22 14:18 (units (unknown) date) unknown) (unknown) (no (unknown) (unknown) 10/05/22 (units (unkno wn) date) unknown) (unknown) (no (unknown) (unknown) 12hr(DON'T CRUSH) (units (unknown) date) (Xtampza ER) unknown) (unknown) (no (unknown) (unknown) 13.5 mg PO DAILY (units (unknown) date) unknown) (unknown) (no (unknown) (unknown) [id number] (units (unkno wn) date) unknown) (unknown) (no (unknown) (unknown) 13:19 (units (unkno wn) date) unknown) (unknown) (no (unknown) (unknown) 20 mg PO BID (units (u nknown) date) unknown) (unknown) (no (unknown) (unknown) 25 mg PO HS Qty: (units (unknown) date) 60 0RF unknown) (unknown) (no (unknown) (unknown) 5 mg PO DAILY (units ( unknown) date) unknown) (unknown) (no (unknown) (unknown) 5 mg PO Q4H PRN (units (unknown) date) (Reason: Pain unknown) (Scale Score 1-3)) (unknown) (no (unknown) (unknown) 50 mg PO DAILY (units (unknown) date) unknown) (unknown) (no (unknown) (unknown) 81 mg PO DAILY (units (unknown) date) unknown) (unknown) (no (unknown) (unknown) ABDOMEN: Soft, (units (unknown) date) nontender. unknown) Normoactive bowel sounds all 4 quadrants. No (unknown) (no (unknown) (unknown) Age/Sex: 82 / M (units (unknown) date) unknown) (unknown) (no (unknown) (unknown) Allergies (units (unkn own) date) unknown) (unknown) (no (unknown) (unknown) Allergy/AdvReac (units (unknown) date) Type Severity unknown) Reaction Status Date / Time (unknown) (no (unknown) (unknown) Blood Pressure (units (unknown) date) 159/77 H 10/05/22 unknown) 13:19 (unknown) (no (unknown) (unknown) Blood Pressure (units (unknown) date) 159/77 H unknown) (unknown) (no (unknown) (unknown) CARDIOVASCULAR: (units (unknown) date) Regular rate and unknown) rhythm without murmurs, rubs or gallops. (unknown) (no (unknown) (unknown) Chief Complaint: (units (unknown) date) Extremity Injury, unknown) Lower (unknown) (no (unknown) (unknown) Course (units (unkno wn) date) unknown) (unknown) (no (unknown) (unknown) : 1940 (units (unknown) date) Acct:[id number] unknown) (unknown) (no (unknown) (unknown) DOSES (units (unkno wn) date) unknown) (unknown) (no (unknown) (unknown) Date of Service: (units (unknown) date) 10/05/22 unknown) (unknown) (no (unknown) (unknown) Departure (units (unkn own) date) unknown) (unknown) (no (unknown) (unknown) Discharge Plan (units (unknown) date) unknown) (unknown) (no (unknown) (unknown) Discontinued (units (u nknown) date) Medications unknown) (unknown) (no (unknown) (unknown) Dr. Ayala many (units (unknown) date) years ago he does unknown) see her. He denies any numbness or tingling (unknown) (no (unknown) (unknown) ED Orders (units (unkn own) date) unknown) (unknown) (no (unknown) (unknown) ER Physician: (units ( unknown) date) Senia Hayden unknown) D.O. (unknown) (no (unknown) (unknown) EXTREMITIES: (units (u nknown) date) Normal range of unknown) motion, no clubbing or edema. Neurovascularly (unknown) (no (unknown) (unknown) Emergency Report (units (unknown) date) unknown) (unknown) (no (unknown) (unknown) Exam (units (unkno wn) date) unknown) (unknown) (no (unknown) (unknown) FROM (units (unkno wn) date) unknown) (unknown) (no (unknown) (unknown) GENERAL: (units (unkno wn) date) [Well-appearing, unknown) well-nourished] and in [no acute] distress. (unknown) (no (unknown) (unknown) General (units (unkno wn) date) unknown) (unknown) (no (unknown) (unknown) HEENT: Head (units (un known) date) atraumatic,EOMI, unknown) pupils reactive, face symmetric, [moist] mucous (unknown) (no (unknown) (unknown) HEPARIN FLUSH (units ( unknown) date) Allergy Unknown unknown) WAS Uncoded 10/05/22 13:25 (unknown) (no (unknown) (unknown) HOSPITALIZATION (units (unknown) date) unknown) (unknown) (no (unknown) (unknown) HPI - Extremity (units (unknown) date) Injury (Lower) unknown) (unknown) (no (unknown) (unknown) HPI Narrative: (units (unknown) date) unknown) (unknown) (no (unknown) (unknown) History of (units (unk nown) date) Present Illness unknown) (unknown) (no (unknown) (unknown) Home Medications (units (unknown) date) unknown) (unknown) (no (unknown) (unknown) Hydromorphone HCl (units (unknown) date) (Hydromorphone 1 unknown) Mg Inj) 1 mg IM NOW ONE (unknown) (no (unknown) (unknown) Initial Vital (units ( unknown) date) Signs unknown) (unknown) (no (unknown) (unknown) Initial Vital (units ( unknown) date) Signs: unknown) (unknown) (no (unknown) (unknown) [facility] (units (unknown) date) [address] unknown) [place] [address] (unknown) (no (unknown) (unknown) Medication (units (unk nown) date) Instructions unknown) Recorded Confirmed (unknown) (no (unknown) (unknown) Medication (units (unk nown) date) Instructions unknown) Recorded (unknown) (no (unknown) (unknown) Mode of arrival: (units (unknown) date) Wheelchair unknown) (unknown) (no (unknown) (unknown) Myrbetriq 50 mg (units (unknown) date) Tablet Extended unknown) Release 24 Hr (unknown) (no (unknown) (unknown) NEUROLOGICAL: (units ( unknown) date) Alert and oriented unknown) x4. (unknown) (no (unknown) (unknown) No Action (units (unkn own) date) unknown) (unknown) (no (unknown) (unknown) Ordered: (units (unkno wn) date) unknown) (unknown) (no (unknown) (unknown) Orders (units (unkno wn) date) unknown) (unknown) (no (unknown) (unknown) Oxygen Delivery (units (unknown) date) Method 10/05/22 unknown) 13:19 (unknown) (no (unknown) (unknown) Oxygen Delivery (units (unknown) date) Method Room Air unknown) (unknown) (no (unknown) (unknown) PREVIOUS (units (unkno wn) date) unknown) (unknown) (no (unknown) (unknown) Patient History (units (unknown) date) unknown) (unknown) (no (unknown) (unknown) Patient is a (units (u nknown) date) 82-year-old unknown) history of arthritis presents today with left hip and (unknown) (no (unknown) (unknown) Patient: (units (unkno wn) date) Rodrigo Chavez MR#: unknown) [id number] (unknown) (no (unknown) (unknown) Pelvis is stable (units (unknown) date) distal unknown) (unknown) (no (unknown) (unknown) Prescriptions: (units (unknown) date) unknown) (unknown) (no (unknown) (unknown) Previous Rx's (units ( unknown) date) unknown) (unknown) (no (unknown) (unknown) Pulse Oximetry 98 (units (unknown) date) 10/05/22 13:19 unknown) (unknown) (no (unknown) (unknown) Pulse Oximetry 98 (units (unknown) date) unknown) (unknown) (no (unknown) (unknown) Pulse Rate 69 (units ( unknown) date) 10/05/22 13:19 unknown) (unknown) (no (unknown) (unknown) Pulse Rate 69 (units ( unknown) date) unknown) (unknown) (no (unknown) (unknown) RECORDED (units (unkno wn) date) unknown) (unknown) (no (unknown) (unknown) RESPIRATORY: (units (u nknown) date) Breath sounds unknown) equal bilaterally, no wheezes rales or rhonchi. (unknown) (no (unknown) (unknown) ROS Unobtainable: (units (unknown) date) All systems unknown) reviewed + are unremarkable except as noted in HPI (unknown) (no (unknown) (unknown) Referrals: (units (unk nown) date) unknown) (unknown) (no (unknown) (unknown) Related Data (units (u nknown) date) unknown) (unknown) (no (unknown) (unknown) Respiratory Rate (units (unknown) date) 17 10/05/22 13:19 unknown) (unknown) (no (unknown) (unknown) Respiratory Rate (units (unknown) date) 17 unknown) (unknown) (no (unknown) (unknown) Review of Systems (units (unknown) date) unknown) (unknown) (no (unknown) (unknown) Norberto Newby MD (units (unknown) date) [Primary Care unknown) Provider] (unknown) (no (unknown) (unknown) Rx Instructions: (units (unknown) date) unknown) (unknown) (no (unknown) (unknown) SKIN: Warm, dry, (units (unknown) date) no laceration, no unknown) petechiae, no rashes or lesions. (unknown) (no (unknown) (unknown) Signed By: (units (unk nown) date) unknown) (unknown) (no (unknown) (unknown) Smoking Status: (units (unknown) date) Never smoker unknown) (unknown) (no (unknown) (unknown) Social History (units (unknown) date) (Reviewed 10/05/22 unknown) @ 17:49 by Senia Hayden DO) (unknown) (no (unknown) (unknown) Source: patient (units (unknown) date) unknown) (unknown) (no (unknown) (unknown) Stated Complaint: (units (unknown) date) GLF on Lside pain unknown) has hip replaced dnt feel right' (unknown) (no (unknown) (unknown) Stop: 10/05/22 (units (unknown) date) 17:44 unknown) (unknown) (no (unknown) (unknown) Substance Use (units ( unknown) date) Type: marijuana unknown) (unknown) (no (unknown) (unknown) Temperature 98.5 (units (unknown) date) F 10/05/22 13:19 unknown) (unknown) (no (unknown) (unknown) Temperature 98.5 (units (unknown) date) F unknown) (unknown) (no (unknown) (unknown) Time Seen by (units (u nknown) date) Provider: 10/05/22 unknown) 17:23 (unknown) (no (unknown) (unknown) Tylenol for his (units (unknown) date) chronic ongoing unknown) pain. 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 with (unknown) (no (unknown) (unknown) Vital Signs - 8 (units (unknown) date) hr unknown) (unknown) (no (unknown) (unknown) Vital Signs (units (un known) date) unknown) (unknown) (no (unknown) (unknown) Vital signs: (units (u nknown) date) unknown) (unknown) (no (unknown) (unknown) WITH LARGE (units (unk nown) date) unknown) (unknown) (no (unknown) (unknown) XR hip w pel if (units (unknown) date) done LT 2V Stat unknown) (unknown) (no (unknown) (unknown) XR knee LT 3V (units ( unknown) date) Stat unknown) (unknown) (no (unknown) (unknown) Xtampza ER 13.5 (units (unknown) date) mg unknown) Cap,Sprinkl,Er12hr (Dont Crush) (unknown) (no (unknown) (unknown) [EARS:] [Tympanic (units (unknown) date) membranes unknown) visualized, no erythema or bulging, no hemotympanum] (unknown) (no (unknown) (unknown) [PHARYNX:] [No (units (unknown) date) erythema, no unknown) tonsillar exudate, no cervical lymphadenopathy] (unknown) (no (unknown) (unknown) acetaminophen (units ( unknown) date) [ACETAMINOPHEN] unknown) Allergy Mild ITCHING Verified 10/05/22 13:25 (unknown) (no (unknown) (unknown) alcohol intake (units (unknown) date) frequency: other unknown) (unknown) (no (unknown) (unknown) and below (units (unkn own) date) unknown) (unknown) (no (unknown) (unknown) aspirin 81 mg (units ( unknown) date) tablet,delayed 81 unknown) mg PO DAILY 10/05/22 10/05/22 (unknown) (no (unknown) (unknown) aspirin (units (unkno wn) date) [Aspir-81] 81 mg unknown) Tablet,Delayed Release (Dr/Ec) (unknown) (no (unknown) (unknown) but now needs to (units (unknown) date) use a walker. He unknown) takes oxycodone 3 times a day along with (unknown) (no (unknown) (unknown) capsule sprinkle (units (unknown) date) extend release unknown) (unknown) (no (unknown) (unknown) dizziness (units (unkn own) date) lightheadedness unknown) chest pain shortness of breath. No nausea or (unknown) (no (unknown) (unknown) famotidine 20 mg (units (unknown) date) Tablet unknown) (unknown) (no (unknown) (unknown) famotidine 20 mg (units (unknown) date) tablet 20 mg PO unknown) BID 10/05/22 10/05/22 (unknown) (no (unknown) (unknown) finasteride 5 mg (units (unknown) date) Tablet unknown) (unknown) (no (unknown) (unknown) finasteride 5 mg (units (unknown) date) tablet 5 mg PO unknown) DAILY 10/05/22 10/05/22 (unknown) (no (unknown) (unknown) guarding or (units (un known) date) rebound. unknown) (unknown) (no (unknown) (unknown) heparin [HEPARIN] (units (unknown) date) Allergy Unknown unknown) Verified 10/05/22 13:25 (unknown) (no (unknown) (unknown) intact (units (unkno wn) date) unknown) (unknown) (no (unknown) (unknown) left knee pain. (units (unknown) date) He says he tripped unknown) and fell last night. She denies any (unknown) (no (unknown) (unknown) membranes (units (unkn own) date) unknown) (unknown) (no (unknown) (unknown) mirabegron 50 mg (units (unknown) date) tablet,extended 50 unknown) mg PO DAILY 10/05/22 10/05/22 (unknown) (no (unknown) (unknown) morphine (units (unkno wn) date) [MORPHINE] AdvReac unknown) Mild NAUSEA Verified 10/05/22 13:25 (unknown) (no (unknown) (unknown) must administer (units (unknown) date) with a meal/food unknown) (unknown) (no (unknown) (unknown) oxycodone 5 mg (units (unknown) date) Capsule unknown) (unknown) (no (unknown) (unknown) oxycodone 5 mg (units (unknown) date) capsule 5 mg PO unknown) Q4H PRN Pain (Scale Score 10/05/22 10/05/22 (unknown) (no (unknown) (unknown) oxycodone (units (unkn own) date) myristate 13.5 mg unknown) 13.5 mg PO DAILY 10/05/22 10/05/22 (unknown) (no (unknown) (unknown) phenytoin 100 (units ( unknown) date) mg/4 mL Suspension unknown) (unknown) (no (unknown) (unknown) phenytoin 100 (units ( unknown) date) mg/4 mL oral 100 unknown) mg PO BID 10/05/22 10/05/22 (unknown) (no (unknown) (unknown) release 24 hr (units ( unknown) date) (Myrbetriq) unknown) (unknown) (no (unknown) (unknown) release (units (unkno wn) date) unknown) (unknown) (no (unknown) (unknown) suspension (units (unk nown) date) unknown) (unknown) (no (unknown) (unknown) topiramate 25 mg (units (unknown) date) tablet (Topamax) unknown) 25 mg PO HS ##60 05/24/16 (unknown) (no (unknown) (unknown) topiramate (units (unk nown) date) [Topamax] 25 MG unknown) tablet (unknown) (no (unknown) (unknown) vomiting. He is (units (unknown) date) able to get up and unknown) walk around however he used to use a [employer] Result panel 6 (unknown) (no (unknown) (unknown) (no value) (units (unk nown) date) unknown) (unknown) (no (unknown) (unknown) 1-3) (units (unkno wn) date) unknown) (unknown) (no (unknown) (unknown) 100 mg PO BID (units ( unknown) date) unknown) (unknown) (no (unknown) (unknown) 10/05/22 13:28 (units (unknown) date) unknown) (unknown) (no (unknown) (unknown) 10/05/22 14:18 (units (unknown) date) unknown) (unknown) (no (unknown) (unknown) 10/05/22 (units (unkno wn) date) unknown) (unknown) (no (unknown) (unknown) 12hr(DON'T CRUSH) (units (unknown) date) (Xtampza ER) unknown) (unknown) (no (unknown) (unknown) 13.5 mg PO DAILY (units (unknown) date) unknown) (unknown) (no (unknown) (unknown) [id number] (units (unkno wn) date) unknown) (unknown) (no (unknown) (unknown) 13:19 (units (unkno wn) date) unknown) (unknown) (no (unknown) (unknown) 20 mg PO BID (units (u nknown) date) unknown) (unknown) (no (unknown) (unknown) 25 mg PO HS Qty: (units (unknown) date) 60 0RF unknown) (unknown) (no (unknown) (unknown) 5 mg PO DAILY (units ( unknown) date) unknown) (unknown) (no (unknown) (unknown) 5 mg PO Q4H PRN (units (unknown) date) (Reason: Pain unknown) (Scale Score 1-3)) (unknown) (no (unknown) (unknown) 50 mg PO DAILY (units (unknown) date) unknown) (unknown) (no (unknown) (unknown) 81 mg PO DAILY (units (unknown) date) unknown) (unknown) (no (unknown) (unknown) ? (units (unkno wn) date) unknown) (unknown) (no (unknown) (unknown) ABDOMEN: Soft, (units (unknown) date) nontender. unknown) Normoactive bowel sounds all 4 quadrants. No (unknown) (no (unknown) (unknown) Accession Number: (units (unknown) date) [id number] ?? unknown) (unknown) (no (unknown) (unknown) Acct:[id number] (units (unknown) date) unknown) (unknown) (no (unknown) (unknown) Age/Sex: 82 / M (units (unknown) date) unknown) (unknown) (no (unknown) (unknown) Allergies (units (unkn own) date) unknown) (unknown) (no (unknown) (unknown) Allergy/AdvReac (units (unknown) date) Type Severity unknown) Reaction Status Date / Time (unknown) (no (unknown) (unknown) Approved by: Silverio Sebastianunits (unknown) date) Papito Orta on unknown) 10/05/2022 at 14:12? (unknown) (no (unknown) (unknown) Blood Pressure (units (unknown) date) 159/77 H 10/05/22 unknown) 13:19 (unknown) (no (unknown) (unknown) Blood Pressure (units (unknown) date) 159/77 H unknown) (unknown) (no (unknown) (unknown) Bones:? No (units (unk nown) date) fractures or unknown) dislocations.? No suspicious bony lesions.? The (unknown) (no (unknown) (unknown) CARDIOVASCULAR: (units (unknown) date) Regular rate and unknown) rhythm without murmurs, rubs or gallops. (unknown) (no (unknown) (unknown) COMPARISON:? (units (u nknown) date) None. unknown) (unknown) (no (unknown) (unknown) Chief Complaint: (units (unknown) date) Extremity Injury, unknown) Lower (unknown) (no (unknown) (unknown) Clinical (units (unkno wn) date) Impression: unknown) (unknown) (no (unknown) (unknown) Contusion of hip, (units (unknown) date) right, Knee sprain unknown) (unknown) (no (unknown) (unknown) Course (units (unkno wn) date) unknown) (unknown) (no (unknown) (unknown) : 1940 (units (unknown) date) Acct:[id number] unknown) (unknown) (no (unknown) (unknown) : 1940 (units (unknown) date) unknown) (unknown) (no (unknown) (unknown) DOSES (units (unkno wn) date) unknown) (unknown) (no (unknown) (unknown) Date of Service: (units (unknown) date) 10/05/22 unknown) (unknown) (no (unknown) (unknown) Degenerative (units (u nknown) date) 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 No fracture. (unknown) (no (unknown) (unknown) Departure (units (unkn own) date) unknown) (unknown) (no (unknown) (unknown) Discharge Plan (units (unknown) date) unknown) (unknown) (no (unknown) (unknown) Discontinued (units (u nknown) date) Medications unknown) (unknown) (no (unknown) (unknown) Dr. Ayala many (units (unknown) date) years ago he does unknown) see her. He denies any numbness or tingling (unknown) (no (unknown) (unknown) ED Orders (units (unkn own) date) unknown) (unknown) (no (unknown) (unknown) ER Physician: (units ( unknown) date) Senia Hayden unknown) D.O. (unknown) (no (unknown) (unknown) EXTREMITIES: (units (u nknown) date) Normal range of unknown) motion, no clubbing or edema. Neurovascularly (unknown) (no (unknown) (unknown) Emergency Report (units (unknown) date) unknown) (unknown) (no (unknown) (unknown) Exam (units (unkno wn) date) unknown) (unknown) (no (unknown) (unknown) Extremity x-ray (units (unknown) date) #1: unknown) (unknown) (no (unknown) (unknown) Extremity x-ray (units (unknown) date) #2: unknown) (unknown) (no (unknown) (unknown) FINDINGS:? (units (unk nown) date) unknown) (unknown) (no (unknown) (unknown) FROM (units (unkno wn) date) unknown) (unknown) (no (unknown) (unknown) GENERAL: Alert (units (unknown) date) pleasant unknown) 82-year-old sitting in chair (unknown) (no (unknown) (unknown) General (units (unkno wn) date) unknown) (unknown) (no (unknown) (unknown) HEENT: Head (units (un known) date) atraumatic,EOMI, unknown) pupils reactive, face symmetric, moist mucous (unknown) (no (unknown) (unknown) HEPARIN FLUSH (units ( unknown) date) Allergy Unknown unknown) WAS Uncoded 10/05/22 13:25 (unknown) (no (unknown) (unknown) HOSPITALIZATION (units (unknown) date) unknown) (unknown) (no (unknown) (unknown) HPI - Extremity (units (unknown) date) Injury (Lower) unknown) (unknown) (no (unknown) (unknown) HPI Narrative: (units (unknown) date) unknown) (unknown) (no (unknown) (unknown) History of (units (unk nown) date) Present Illness unknown) (unknown) (no (unknown) (unknown) Home Medications (units (unknown) date) unknown) (unknown) (no (unknown) (unknown) Hydromorphone HCl (units (unknown) date) (Hydromorphone 1 unknown) Mg Inj) 1 mg IM NOW ONE (unknown) (no (unknown) (unknown) IMPRESSION:? (units (u nknown) date) unknown) (unknown) (no (unknown) (unknown) INDICATIONS:? (units ( unknown) date) fall unknown) (unknown) (no (unknown) (unknown) Imaging Data (units (u nknown) date) unknown) (unknown) (no (unknown) (unknown) Initial Vital (units ( unknown) date) Signs unknown) (unknown) (no (unknown) (unknown) Initial Vital (units ( unknown) date) Signs: unknown) (unknown) (no (unknown) (unknown) Instructions: DI (units (unknown) date) for Knee Sprain, unknown) DI for Hip Pain (unknown) (no (unknown) (unknown) [facility] (units (unknown) date) [address] unknown) [place] [address] (unknown) (no (unknown) (unknown) Loc: ED (units (unkno wn) date) unknown) (unknown) (no (unknown) (unknown) MDM - Extremity (units (unknown) date) Injury (Lower) unknown) (unknown) (no (unknown) (unknown) MR#: [id number] (units (unknown) date) unknown) (unknown) (no (unknown) (unknown) Medication (units (unk nown) date) Instructions unknown) Recorded Confirmed (unknown) (no (unknown) (unknown) Medication (units (unk nown) date) Instructions unknown) Recorded (unknown) (no (unknown) (unknown) Mode of arrival: (units (unknown) date) Wheelchair unknown) (unknown) (no (unknown) (unknown) Myrbetriq 50 mg (units (unknown) date) Tablet Extended unknown) Release 24 Hr (unknown) (no (unknown) (unknown) NEUROLOGICAL: (units ( unknown) date) Alert and oriented unknown) x4. (unknown) (no (unknown) (unknown) No Action (units (unkn own) date) unknown) (unknown) (no (unknown) (unknown) Ordered: (units (unkno wn) date) unknown) (unknown) (no (unknown) (unknown) Ordering (units (unkno wn) date) Provider: unknown) Senia Hayden D.O. (unknown) (no (unknown) (unknown) Orders (units (unkno wn) date) unknown) (unknown) (no (unknown) (unknown) Oxygen Delivery (units (unknown) date) Method 10/05/22 unknown) 13:19 (unknown) (no (unknown) (unknown) Oxygen Delivery (units (unknown) date) Method Room Air unknown) (unknown) (no (unknown) (unknown) PREVIOUS (units (unkno wn) date) unknown) (unknown) (no (unknown) (unknown) PROCEDURE:? XR (units (unknown) date) HIP W PEL IF DONE unknown) LT 2V (unknown) (no (unknown) (unknown) Patient (units (unkno wn) date) Disposition: Home unknown) (unknown) (no (unknown) (unknown) Patient History (units (unknown) date) unknown) (unknown) (no (unknown) (unknown) Patient is a (units (u nknown) date) 82-year-old unknown) history of arthritis presents today with left hip and (unknown) (no (unknown) (unknown) Patient: (units (unkno wn) date) Rodrigo Chavez MR#: unknown) [id number] (unknown) (no (unknown) (unknown) Patient: (units (unkno wn) date) Rodrigo Chavez unknown) (unknown) (no (unknown) (unknown) Pelvis is stable (units (unknown) date) distal. Knee is unknown) stable distal pedal pulse intact (unknown) (no (unknown) (unknown) Prescriptions: (units (unknown) date) unknown) (unknown) (no (unknown) (unknown) Previous Rx's (units ( unknown) date) unknown) (unknown) (no (unknown) (unknown) Procedure: XR hip (units (unknown) date) w pel if done LT unknown) 2V (unknown) (no (unknown) (unknown) Pulse Oximetry 98 (units (unknown) date) 10/05/22 13:19 unknown) (unknown) (no (unknown) (unknown) Pulse Oximetry 98 (units (unknown) date) unknown) (unknown) (no (unknown) (unknown) Pulse Rate 69 (units ( unknown) date) 10/05/22 13:19 unknown) (unknown) (no (unknown) (unknown) Pulse Rate 69 (units ( unknown) date) unknown) (unknown) (no (unknown) (unknown) RECORDED (units (unkno wn) date) unknown) (unknown) (no (unknown) (unknown) RESPIRATORY: (units (u nknown) date) Breath sounds unknown) equal bilaterally, no wheezes rales or rhonchi. (unknown) (no (unknown) (unknown) ROS Unobtainable: (units (unknown) date) All systems unknown) reviewed + are unremarkable except as noted in HPI (unknown) (no (unknown) (unknown) Radiologist's (units ( unknown) date) Impression: unknown) (unknown) (no (unknown) (unknown) Referrals: (units (unk nown) date) unknown) (unknown) (no (unknown) (unknown) Related Data (units (u nknown) date) unknown) (unknown) (no (unknown) (unknown) Respiratory Rate (units (unknown) date) 17 10/05/22 13:19 unknown) (unknown) (no (unknown) (unknown) Respiratory Rate (units (unknown) date) 17 unknown) (unknown) (no (unknown) (unknown) Review of Systems (units (unknown) date) unknown) (unknown) (no (unknown) (unknown) Norberto Newby MD (units (unknown) date) [Primary Care unknown) Provider] (unknown) (no (unknown) (unknown) Rx Instructions: (units (unknown) date) unknown) (unknown) (no (unknown) (unknown) SKIN: Warm, dry, (units (unknown) date) no laceration, no unknown) petechiae, no rashes or lesions. (unknown) (no (unknown) (unknown) Signed By: (units (unk nown) date) unknown) (unknown) (no (unknown) (unknown) Signed (units (unkno wn) date) unknown) (unknown) (no (unknown) (unknown) Smoking Status: (units (unknown) date) Never smoker unknown) (unknown) (no (unknown) (unknown) Social History (units (unknown) date) (Reviewed 10/05/22 unknown) @ 17:49 by Senia Hayden DO) (unknown) (no (unknown) (unknown) Soft tissues:? No (units (unknown) date) suspicious soft unknown) tissue calcifications or masses.? 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 2 (units ( unknown) date) views of the hip unknown) were acquired.? (unknown) (no (unknown) (unknown) Temperature 98.5 (units (unknown) date) F 10/05/22 13:19 unknown) (unknown) (no (unknown) (unknown) Temperature 98.5 (units (unknown) date) F unknown) (unknown) (no (unknown) (unknown) Time Seen by (units (u nknown) date) Provider: 10/05/22 unknown) 17:23 (unknown) (no (unknown) (unknown) Tylenol for his (units (unknown) date) chronic ongoing unknown) pain. 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 with (unknown) (no (unknown) (unknown) Vital Signs - 8 (units (unknown) date) hr unknown) (unknown) (no (unknown) (unknown) Vital Signs (units (un known) date) unknown) (unknown) (no (unknown) (unknown) Vital signs: (units (u nknown) date) unknown) (unknown) (no (unknown) (unknown) WITH LARGE (units (unk nown) date) unknown) (unknown) (no (unknown) (unknown) XR hip w pel if (units (unknown) date) done LT 2V Stat unknown) (unknown) (no (unknown) (unknown) XR knee LT 3V (units ( unknown) date) Stat unknown) (unknown) (no (unknown) (unknown) Xtampza ER 13.5 (units (unknown) date) mg unknown) Cap,Sprinkl,Er12hr (Dont Crush) (unknown) (no (unknown) (unknown) acetaminophen (units ( unknown) date) [ACETAMINOPHEN] unknown) Allergy Mild ITCHING Verified 10/05/22 13:25 (unknown) (no (unknown) (unknown) alcohol intake (units (unknown) date) frequency: other unknown) (unknown) (no (unknown) (unknown) and below (units (unkn own) date) unknown) (unknown) (no (unknown) (unknown) aspirin 81 mg (units ( unknown) date) tablet,delayed 81 unknown) mg PO DAILY 10/05/22 10/05/22 (unknown) (no (unknown) (unknown) aspirin (units (unkno wn) date) [Aspir-81] 81 mg unknown) Tablet,Delayed Release (Dr/Ec) (unknown) (no (unknown) (unknown) but now needs to (units (unknown) date) use a walker. He unknown) takes oxycodone 3 times a day along with (unknown) (no (unknown) (unknown) capsule sprinkle (units (unknown) date) extend release unknown) (unknown) (no (unknown) (unknown) dizziness (units (unkn own) date) lightheadedness unknown) chest pain shortness of breath. No nausea or (unknown) (no (unknown) (unknown) famotidine 20 mg (units (unknown) date) Tablet unknown) (unknown) (no (unknown) (unknown) famotidine 20 mg (units (unknown) date) tablet 20 mg PO unknown) BID 10/05/22 10/05/22 (unknown) (no (unknown) (unknown) finasteride 5 mg (units (unknown) date) Tablet unknown) (unknown) (no (unknown) (unknown) finasteride 5 mg (units (unknown) date) tablet 5 mg PO unknown) DAILY 10/05/22 10/05/22 (unknown) (no (unknown) (unknown) guarding or (units (un known) date) rebound. unknown) (unknown) (no (unknown) (unknown) heparin [HEPARIN] (units (unknown) date) Allergy Unknown unknown) Verified 10/05/22 13:25 (unknown) (no (unknown) (unknown) intact (units (unkno wn) date) unknown) (unknown) (no (unknown) (unknown) joint space (units (un known) date) unknown) (unknown) (no (unknown) (unknown) left knee pain. (units (unknown) date) He says he tripped unknown) and fell last night. She denies any (unknown) (no (unknown) (unknown) membranes (units (unkn own) date) unknown) (unknown) (no (unknown) (unknown) mirabegron 50 mg (units (unknown) date) tablet,extended 50 unknown) mg PO DAILY 10/05/22 10/05/22 (unknown) (no (unknown) (unknown) morphine (units (unkno wn) date) [MORPHINE] AdvReac unknown) Mild NAUSEA Verified 10/05/22 13:25 (unknown) (no (unknown) (unknown) must administer (units (unknown) date) with a meal/food unknown) (unknown) (no (unknown) (unknown) narrowing.? (units (un known) date) Degenerative unknown) changes noted lower lumbar spine (unknown) (no (unknown) (unknown) oxycodone 5 mg (units (unknown) date) Capsule unknown) (unknown) (no (unknown) (unknown) oxycodone 5 mg (units (unknown) date) capsule 5 mg PO unknown) Q4H PRN Pain (Scale Score 10/05/22 10/05/22 (unknown) (no (unknown) (unknown) oxycodone (units (unkn own) date) myristate 13.5 mg unknown) 13.5 mg PO DAILY 10/05/22 10/05/22 (unknown) (no (unknown) (unknown) phenytoin 100 (units ( unknown) date) mg/4 mL Suspension unknown) (unknown) (no (unknown) (unknown) phenytoin 100 (units ( unknown) date) mg/4 mL oral 100 unknown) mg PO BID 10/05/22 10/05/22 (unknown) (no (unknown) (unknown) release 24 hr (units ( unknown) date) (Myrbetriq) unknown) (unknown) (no (unknown) (unknown) release (units (unkno wn) date) unknown) (unknown) (no (unknown) (unknown) ring appears (units (u nknown) date) intact.? 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 He is (units (unknown) date) able to get up and unknown) walk around however he used to use a cane Result panel 7 (unknown) (no (unknown) (unknown) (no value) (units (unk nown) date) unknown) (unknown) (no (unknown) (unknown) *Continue to take (units (unknown) date) medications as unknown) directed (unknown) (no (unknown) (unknown) *Follow up with (units (unknown) date) your primary care unknown) provider in 2-3 days or call [phone] (unknown) (no (unknown) (unknown) *Return to ER if (units (unknown) date) you should have unknown) increasing pain inability to walk numbness (unknown) (no (unknown) (unknown) *What to do: At (units (unknown) date) this time ambulate unknown) with walker please take pain medications as (unknown) (no (unknown) (unknown) *You have been (units (unknown) date) diagnosed with unknown) left knee sprain and left hip contusion (unknown) (no (unknown) (unknown) 1-3) (units (unkno wn) date) unknown) (unknown) (no (unknown) (unknown) 100 mg PO BID (units ( unknown) date) unknown) (unknown) (no (unknown) (unknown) 10/05/22 13:28 (units (unknown) date) unknown) (unknown) (no (unknown) (unknown) 10/05/22 14:18 (units (unknown) date) unknown) (unknown) (no (unknown) (unknown) 10/05/22 (units (unkno wn) date) unknown) (unknown) (no (unknown) (unknown) 12hr(DON'T CRUSH) (units (unknown) date) (Xtampza ER) unknown) (unknown) (no (unknown) (unknown) 13.5 mg PO DAILY (units (unknown) date) unknown) (unknown) (no (unknown) (unknown) [id number] (units (unkno wn) date) unknown) (unknown) (no (unknown) (unknown) 13:19 (units (unkno wn) date) unknown) (unknown) (no (unknown) (unknown) 20 mg PO BID (units (u nknown) date) unknown) (unknown) (no (unknown) (unknown) 25 mg PO HS Qty: (units (unknown) date) 60 0RF unknown) (unknown) (no (unknown) (unknown) 5 mg PO DAILY (units ( unknown) date) unknown) (unknown) (no (unknown) (unknown) 5 mg PO Q4H PRN (units (unknown) date) (Reason: Pain unknown) (Scale Score 1-3)) (unknown) (no (unknown) (unknown) 50 mg PO DAILY (units (unknown) date) unknown) (unknown) (no (unknown) (unknown) 81 mg PO DAILY (units (unknown) date) unknown) (unknown) (no (unknown) (unknown) ? (units (unkno wn) date) unknown) (unknown) (no (unknown) (unknown) ABDOMEN: Soft, (units (unknown) date) nontender. unknown) Normoactive bowel sounds all 4 quadrants. No (unknown) (no (unknown) (unknown) Accession Number: (units (unknown) date) [id number] ?? unknown) (unknown) (no (unknown) (unknown) Acct:[id number] (units (unknown) date) unknown) (unknown) (no (unknown) (unknown) Activity (units (unkno wn) date) Restrictions/Addit unknown) ional Instructions: (unknown) (no (unknown) (unknown) Age/Sex: 82 / M (units (unknown) date) unknown) (unknown) (no (unknown) (unknown) Allergies (units (unkn own) date) unknown) (unknown) (no (unknown) (unknown) Allergy/AdvReac (units (unknown) date) Type Severity unknown) Reaction Status Date / Time (unknown) (no (unknown) (unknown) Approved by: Silverio (units (unknown) date) Papito Orta on unknown) 10/05/2022 at 14:12? (unknown) (no (unknown) (unknown) Blood Pressure (units (unknown) date) 159/77 H 10/05/22 unknown) 13:19 (unknown) (no (unknown) (unknown) Blood Pressure (units (unknown) date) 159/77 H unknown) (unknown) (no (unknown) (unknown) Bones:? No (units (unk nown) date) fractures or unknown) dislocations.? No suspicious bony lesions.? The (unknown) (no (unknown) (unknown) CARDIOVASCULAR: (units (unknown) date) Regular rate and unknown) rhythm without murmurs, rubs or gallops. (unknown) (no (unknown) (unknown) COMPARISON:? (units (u nknown) date) None. unknown) (unknown) (no (unknown) (unknown) Call Dr. Ayala on (units (unknown) date) Friday to unknown) follow-up appointment (unknown) (no (unknown) (unknown) Chief Complaint: (units (unknown) date) Extremity Injury, unknown) Lower (unknown) (no (unknown) (unknown) Clinical (units (unkno wn) date) Impression: unknown) (unknown) (no (unknown) (unknown) Contusion of hip, (units (unknown) date) right, Knee sprain unknown) (unknown) (no (unknown) (unknown) Course (units (unkno wn) date) unknown) (unknown) (no (unknown) (unknown) : 1940 (units (unknown) date) Acct:[id number] unknown) (unknown) (no (unknown) (unknown) : 1940 (units (unknown) date) unknown) (unknown) (no (unknown) (unknown) DOSES (units (unkno wn) date) unknown) (unknown) (no (unknown) (unknown) Date of Service: (units (unknown) date) 10/05/22 unknown) (unknown) (no (unknown) (unknown) Degenerative (units (u nknown) date) 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 No fracture. (unknown) (no (unknown) (unknown) Departure (units (unkn own) date) unknown) (unknown) (no (unknown) (unknown) Discharge Plan (units (unknown) date) unknown) (unknown) (no (unknown) (unknown) Discontinued (units (u nknown) date) Medications unknown) (unknown) (no (unknown) (unknown) Documented By: (units (unknown) date) RLS unknown) (unknown) (no (unknown) (unknown) Dr. Ayala many (units (unknown) date) years ago he does unknown) see her. He denies any numbness or tingling (unknown) (no (unknown) (unknown) ED Orders (units (unkn own) date) unknown) (unknown) (no (unknown) (unknown) ER Physician: (units ( unknown) date) Senia Hayden unknown) D.O. (unknown) (no (unknown) (unknown) EXTREMITIES: (units (u nknown) date) Normal range of unknown) motion, no clubbing or edema. Neurovascularly (unknown) (no (unknown) (unknown) Emergency Report (units (unknown) date) unknown) (unknown) (no (unknown) (unknown) Exam (units (unkno wn) date) unknown) (unknown) (no (unknown) (unknown) Extremity x-ray (units (unknown) date) #1: unknown) (unknown) (no (unknown) (unknown) Extremity x-ray (units (unknown) date) #2: unknown) (unknown) (no (unknown) (unknown) FINDINGS:? (units (unk nown) date) unknown) (unknown) (no (unknown) (unknown) FROM (units (unkno wn) date) unknown) (unknown) (no (unknown) (unknown) GENERAL: Alert (units (unknown) date) pleasant unknown) 82-year-old sitting in chair (unknown) (no (unknown) (unknown) General (units (unkno wn) date) unknown) (unknown) (no (unknown) (unknown) HEENT: Head (units (un known) date) atraumatic,EOMI, unknown) pupils reactive, face symmetric, moist mucous (unknown) (no (unknown) (unknown) HEPARIN FLUSH (units ( unknown) date) Allergy Unknown unknown) WAS Uncoded 10/05/22 13:25 (unknown) (no (unknown) (unknown) HOSPITALIZATION (units (unknown) date) unknown) (unknown) (no (unknown) (unknown) HPI - Extremity (units (unknown) date) Injury (Lower) unknown) (unknown) (no (unknown) (unknown) HPI Narrative: (units (unknown) date) unknown) (unknown) (no (unknown) (unknown) He is ambulating (units (unknown) date) with a walker at unknown) home he does not usually use a walker he has (unknown) (no (unknown) (unknown) History of (units (unk nown) date) Present Illness unknown) (unknown) (no (unknown) (unknown) Home Medications (units (unknown) date) unknown) (unknown) (no (unknown) (unknown) Hydromorphone HCl (units (unknown) date) (Hydromorphone 1 unknown) Mg Inj) 1 mg IM NOW ONE (unknown) (no (unknown) (unknown) IMPRESSION:? (units (u nknown) date) unknown) (unknown) (no (unknown) (unknown) INDICATIONS:? (units ( unknown) date) fall unknown) (unknown) (no (unknown) (unknown) Imaging Data (units (u nknown) date) unknown) (unknown) (no (unknown) (unknown) Initial Vital (units ( unknown) date) Signs unknown) (unknown) (no (unknown) (unknown) Initial Vital (units ( unknown) date) Signs: unknown) (unknown) (no (unknown) (unknown) Instructions: DI (units (unknown) date) for Knee Sprain, unknown) DI for Hip Pain (unknown) (no (unknown) (unknown) [facility] (units (unknown) date) [address] [place] [address] unknown) [place] [address] (unknown) (no (unknown) (unknown) Last Admin: (units (un known) date) 10/05/22 17:52 unknown) Dose: 1 mg (unknown) (no (unknown) (unknown) Loc: ED (units (unkno wn) date) unknown) (unknown) (no (unknown) (unknown) MDM - Extremity (units (unknown) date) Injury (Lower) unknown) (unknown) (no (unknown) (unknown) MDM Narrative (units ( unknown) date) unknown) (unknown) (no (unknown) (unknown) MR#: [id number] (units (unknown) date) unknown) (unknown) (no (unknown) (unknown) Medical decision (units (unknown) date) making narrative: unknown) (unknown) (no (unknown) (unknown) Medication (units (unk nown) date) Instructions unknown) Recorded Confirmed (unknown) (no (unknown) (unknown) Medication (units (unk nown) date) Instructions unknown) Recorded (unknown) (no (unknown) (unknown) Mode of arrival: (units (unknown) date) Wheelchair unknown) (unknown) (no (unknown) (unknown) Myrbetriq 50 mg (units (unknown) date) Tablet Extended unknown) Release 24 Hr (unknown) (no (unknown) (unknown) NEUROLOGICAL: (units ( unknown) date) Alert and oriented unknown) x4. (unknown) (no (unknown) (unknown) No Action (units (unkn own) date) unknown) (unknown) (no (unknown) (unknown) Ordered: (units (unkno wn) date) unknown) (unknown) (no (unknown) (unknown) Ordering (units (unkno wn) date) Provider: unknown) Senia Hayden D.O. (unknown) (no (unknown) (unknown) Orders (units (unkno wn) date) unknown) (unknown) (no (unknown) (unknown) Oxygen Delivery (units (unknown) date) Method 10/05/22 unknown) 13:19 (unknown) (no (unknown) (unknown) Oxygen Delivery (units (unknown) date) Method Room Air unknown) (unknown) (no (unknown) (unknown) PREVIOUS (units (unkno wn) date) unknown) (unknown) (no (unknown) (unknown) PROCEDURE:? XR (units (unknown) date) HIP W PEL IF DONE unknown) LT 2V (unknown) (no (unknown) (unknown) Patient (units (unkno wn) date) Disposition: Home unknown) (unknown) (no (unknown) (unknown) Patient History (units (unknown) date) unknown) (unknown) (no (unknown) (unknown) Patient has (units (un known) date) chronic ongoing unknown) pain and arthritis fell on his left hip last night. (unknown) (no (unknown) (unknown) Patient is a (units (u nknown) date) 82-year-old unknown) history of arthritis presents today with left hip and (unknown) (no (unknown) (unknown) Patient: (units (unkno wn) date) Rodrigo Chavez MR#: unknown) M0003 (unknown) (no (unknown) (unknown) Patient: (units (unkno wn) date) Rodrigo Chavez unknown) (unknown) (no (unknown) (unknown) Pelvis is stable (units (unknown) date) distal. Knee is unknown) stable distal pedal pulse intact (unknown) (no (unknown) (unknown) Prescriptions: (units (unknown) date) unknown) (unknown) (no (unknown) (unknown) Previous Rx's (units ( unknown) date) unknown) (unknown) (no (unknown) (unknown) Procedure: XR hip (units (unknown) date) w pel if done LT unknown) 2V (unknown) (no (unknown) (unknown) Pulse Oximetry 98 (units (unknown) date) 10/05/22 13:19 unknown) (unknown) (no (unknown) (unknown) Pulse Oximetry 98 (units (unknown) date) unknown) (unknown) (no (unknown) (unknown) Pulse Rate 69 (units ( unknown) date) 10/05/22 13:19 unknown) (unknown) (no (unknown) (unknown) Pulse Rate 69 (units ( unknown) date) unknown) (unknown) (no (unknown) (unknown) RECORDED (units (unkno wn) date) unknown) (unknown) (no (unknown) (unknown) RESPIRATORY: (units (u nknown) date) Breath sounds unknown) equal bilaterally, no wheezes rales or rhonchi. (unknown) (no (unknown) (unknown) ROS Unobtainable: (units (unknown) date) All systems unknown) reviewed + are unremarkable except as noted in HPI (unknown) (no (unknown) (unknown) Radiologist's (units ( unknown) date) Impression: unknown) (unknown) (no (unknown) (unknown) Referrals: (units (unk nown) date) unknown) (unknown) (no (unknown) (unknown) Related Data (units (u nknown) date) unknown) (unknown) (no (unknown) (unknown) Respiratory Rate (units (unknown) date) 17 10/05/22 13:19 unknown) (unknown) (no (unknown) (unknown) Respiratory Rate (units (unknown) date) 17 unknown) (unknown) (no (unknown) (unknown) Review of Systems (units (unknown) date) unknown) (unknown) (no (unknown) (unknown) Norberto Newby MD (units (unknown) date) [Primary Care unknown) Provider] (unknown) (no (unknown) (unknown) Rx Instructions: (units (unknown) date) unknown) (unknown) (no (unknown) (unknown) SKIN: Warm, dry, (units (unknown) date) no laceration, no unknown) petechiae, no rashes or lesions. (unknown) (no (unknown) (unknown) Signed By: (units (unk nown) date) unknown) (unknown) (no (unknown) (unknown) Signed (units (unkno wn) date) unknown) (unknown) (no (unknown) (unknown) Smoking Status: (units (unknown) date) Never smoker unknown) (unknown) (no (unknown) (unknown) Social History (units (unknown) date) (Reviewed 10/05/22 unknown) @ 17:49 by Seina Hayden DO) (unknown) (no (unknown) (unknown) Soft tissues:? No (units (unknown) date) suspicious soft unknown) tissue calcifications or masses.? 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 2 (units ( unknown) date) views of the hip unknown) were acquired.? (unknown) (no (unknown) (unknown) Temperature 98.5 (units (unknown) date) F 10/05/22 13:19 unknown) (unknown) (no (unknown) (unknown) Temperature 98.5 (units (unknown) date) F unknown) (unknown) (no (unknown) (unknown) Time Seen by (units (u nknown) date) Provider: 10/05/22 unknown) 17:23 (unknown) (no (unknown) (unknown) Tylenol for his (units (unknown) date) chronic ongoing unknown) pain. 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 with (unknown) (no (unknown) (unknown) Vital Signs - 8 (units (unknown) date) hr unknown) (unknown) (no (unknown) (unknown) Vital Signs (units (un known) date) unknown) (unknown) (no (unknown) (unknown) Vital signs: (units (u nknown) date) unknown) (unknown) (no (unknown) (unknown) WITH LARGE (units (unk nown) date) unknown) (unknown) (no (unknown) (unknown) XR hip w pel if (units (unknown) date) done LT 2V Stat unknown) (unknown) (no (unknown) (unknown) XR knee LT 3V (units ( unknown) date) Stat unknown) (unknown) (no (unknown) (unknown) Xtampza ER 13.5 (units (unknown) date) mg unknown) Cap,Sprinkl,Er12hr (Dont Crush) (unknown) (no (unknown) (unknown) acetaminophen (units ( unknown) date) [ACETAMINOPHEN] unknown) Allergy Mild ITCHING Verified 10/05/22 13:25 (unknown) (no (unknown) (unknown) alcohol intake (units (unknown) date) frequency: other unknown) (unknown) (no (unknown) (unknown) and below (units (unkn own) date) unknown) (unknown) (no (unknown) (unknown) aspirin 81 mg (units ( unknown) date) tablet,delayed 81 unknown) mg PO DAILY 10/05/22 10/05/22 (unknown) (no (unknown) (unknown) aspirin (units (unkno wn) date) [Aspir-81] 81 mg unknown) Tablet,Delayed Release (Dr/Ec) (unknown) (no (unknown) (unknown) but now needs to (units (unknown) date) use a walker. He unknown) takes oxycodone 3 times a day along with (unknown) (no (unknown) (unknown) capsule sprinkle (units (unknown) date) extend release unknown) (unknown) (no (unknown) (unknown) care provider. (units (unknown) date) unknown) (unknown) (no (unknown) (unknown) dizziness (units (unkn own) date) lightheadedness unknown) chest pain shortness of breath. No nausea or (unknown) (no (unknown) (unknown) famotidine 20 mg (units (unknown) date) Tablet unknown) (unknown) (no (unknown) (unknown) famotidine 20 mg (units (unknown) date) tablet 20 mg PO unknown) BID 10/05/22 10/05/22 (unknown) (no (unknown) (unknown) finasteride 5 mg (units (unknown) date) Tablet unknown) (unknown) (no (unknown) (unknown) finasteride 5 mg (units (unknown) date) tablet 5 mg PO unknown) DAILY 10/05/22 10/05/22 (unknown) (no (unknown) (unknown) guarding or (units (un known) date) rebound. unknown) (unknown) (no (unknown) (unknown) heparin [HEPARIN] (units (unknown) date) Allergy Unknown unknown) Verified 10/05/22 13:25 (unknown) (no (unknown) (unknown) intact (units (unkno wn) date) unknown) (unknown) (no (unknown) (unknown) joint space (units (un known) date) unknown) (unknown) (no (unknown) (unknown) left knee pain. (units (unknown) date) He says he tripped unknown) and fell last night. She denies any (unknown) (no (unknown) (unknown) membranes (units (unkn own) date) unknown) (unknown) (no (unknown) (unknown) mirabegron 50 mg (units (unknown) date) tablet,extended 50 unknown) mg PO DAILY 10/05/22 10/05/22 (unknown) (no (unknown) (unknown) morphine (units (unkno wn) date) [MORPHINE] AdvReac unknown) Mild NAUSEA Verified 10/05/22 13:25 (unknown) (no (unknown) (unknown) must administer (units (unknown) date) with a meal/food unknown) (unknown) (no (unknown) (unknown) narrowing.? (units (un known) date) Degenerative unknown) changes noted lower lumbar spine (unknown) (no (unknown) (unknown) oxycodone 5 mg (units (unknown) date) Capsule unknown) (unknown) (no (unknown) (unknown) oxycodone 5 mg (units (unknown) date) capsule 5 mg PO unknown) Q4H PRN Pain (Scale Score 10/05/22 10/05/22 (unknown) (no (unknown) (unknown) oxycodone (units (unkn own) date) myristate 13.5 mg unknown) 13.5 mg PO DAILY 10/05/22 10/05/22 (unknown) (no (unknown) (unknown) pain control at (units (unknown) date) home. X-rays are unknown) negative. At this time ambulate with walker. (unknown) (no (unknown) (unknown) phenytoin 100 (units ( unknown) date) mg/4 mL Suspension unknown) (unknown) (no (unknown) (unknown) phenytoin 100 (units ( unknown) date) mg/4 mL oral 100 unknown) mg PO BID 10/05/22 10/05/22 (unknown) (no (unknown) (unknown) prescribed. Ice (units (unknown) date) and elevate. unknown) Please follow-up with orthopedic or your primary (unknown) (no (unknown) (unknown) release 24 hr (units ( unknown) date) (Myrbetriq) unknown) (unknown) (no (unknown) (unknown) release (units (unkno wn) date) unknown) (unknown) (no (unknown) (unknown) ring appears (units (u nknown) date) intact.? 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 He is (units (unknown) date) able to get up and unknown) walk around however he used to use a cane Result panel 8 (unknown) (no (unknown) (unknown) (no value) (units (unk nown) date) unknown) (unknown) (no (unknown) (unknown) <Electronically (units (unknown) date) signed by Senia Hayden D.O.> (unknown) (no (unknown) (unknown) *Continue to take (units (unknown) date) medications as unknown) directed (unknown) (no (unknown) (unknown) *Follow up with (units (unknown) date) your primary care unknown) provider in 2-3 days or call [phone] (unknown) (no (unknown) (unknown) *Return to ER if (units (unknown) date) you should have unknown) increasing pain inability to walk numbness (unknown) (no (unknown) (unknown) *What to do: At (units (unknown) date) this time ambulate unknown) with walker please take pain medications as (unknown) (no (unknown) (unknown) *You have been (units (unknown) date) diagnosed with unknown) left knee sprain and left hip contusion (unknown) (no (unknown) (unknown) 10/06/22 0857 (units ( unknown) date) unknown) (unknown) (no (unknown) (unknown) 1-3) (units (unkno wn) date) unknown) (unknown) (no (unknown) (unknown) 100 mg PO BID (units ( unknown) date) unknown) (unknown) (no (unknown) (unknown) 10/05/22 (units (unkno wn) date) unknown) (unknown) (no (unknown) (unknown) 12hr(DON'T CRUSH) (units (unknown) date) (Xtampza ER) unknown) (unknown) (no (unknown) (unknown) 13.5 mg PO DAILY (units (unknown) date) unknown) (unknown) (no (unknown) (unknown) 02712 (units (unkno wn) date) unknown) (unknown) (no (unknown) (unknown) 13:19 (units (unkno wn) date) unknown) (unknown) (no (unknown) (unknown) 20 mg PO BID (units (u nknown) date) unknown) (unknown) (no (unknown) (unknown) 25 mg PO HS Qty: (units (unknown) date) 60 0RF unknown) (unknown) (no (unknown) (unknown) 5 mg PO DAILY (units ( unknown) date) unknown) (unknown) (no (unknown) (unknown) 5 mg PO Q4H PRN (units (unknown) date) (Reason: Pain unknown) (Scale Score 1-3)) (unknown) (no (unknown) (unknown) 50 mg PO DAILY (units (unknown) date) unknown) (unknown) (no (unknown) (unknown) 81 mg PO DAILY (units (unknown) date) unknown) (unknown) (no (unknown) (unknown) ? (units (unkno wn) date) unknown) (unknown) (no (unknown) (unknown) ABDOMEN: Soft, (units (unknown) date) nontender. unknown) Normoactive bowel sounds all 4 quadrants. No (unknown) (no (unknown) (unknown) Accession Number: (units (unknown) date) [id number] ?? unknown) (unknown) (no (unknown) (unknown) Acct:[id number] (units (unknown) date) unknown) (unknown) (no (unknown) (unknown) Activity (units (unkno wn) date) Restrictions/Addit unknown) ional Instructions: (unknown) (no (unknown) (unknown) Age/Sex: 82 / M (units (unknown) date) unknown) (unknown) (no (unknown) (unknown) Allergies (units (unkn own) date) unknown) (unknown) (no (unknown) (unknown) Allergy/AdvReac (units (unknown) date) Type Severity unknown) Reaction Status Date / Time (unknown) (no (unknown) (unknown) Approved by: Silverio (units (unknown) date) Papito Orta on unknown) 10/05/2022 at 14:12? (unknown) (no (unknown) (unknown) Blood Pressure (units (unknown) date) 159/77 H 10/05/22 unknown) 13:19 (unknown) (no (unknown) (unknown) Blood Pressure (units (unknown) date) 159/77 H unknown) (unknown) (no (unknown) (unknown) Bones:? No (units (unk nown) date) fractures or unknown) dislocations.? No suspicious bony lesions.? The (unknown) (no (unknown) (unknown) CARDIOVASCULAR: (units (unknown) date) Regular rate and unknown) rhythm without murmurs, rubs or gallops. (unknown) (no (unknown) (unknown) COMPARISON:? (units (u nknown) date) None. unknown) (unknown) (no (unknown) (unknown) Call Dr. Ayala on (units (unknown) date) Friday to unknown) follow-up appointment (unknown) (no (unknown) (unknown) Chief Complaint: (units (unknown) date) Extremity Injury, unknown) Lower (unknown) (no (unknown) (unknown) Clinical (units (unkno wn) date) Impression: unknown) (unknown) (no (unknown) (unknown) Contusion of hip, (units (unknown) date) right, Knee sprain unknown) (unknown) (no (unknown) (unknown) Course (units (unkno wn) date) unknown) (unknown) (no (unknown) (unknown) : 1940 (units (unknown) date) Acct:[id number] unknown) (unknown) (no (unknown) (unknown) : 1940 (units (unknown) date) unknown) (unknown) (no (unknown) (unknown) DOSES (units (unkno wn) date) unknown) (unknown) (no (unknown) (unknown) Date of Service: (units (unknown) date) 10/05/22 unknown) (unknown) (no (unknown) (unknown) Degenerative (units (u nknown) date) 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 No fracture. (unknown) (no (unknown) (unknown) Departure (units (unkn own) date) unknown) (unknown) (no (unknown) (unknown) Discharge Plan (units (unknown) date) unknown) (unknown) (no (unknown) (unknown) Discontinued (units (u nknown) date) Medications unknown) (unknown) (no (unknown) (unknown) Documented By: (units (unknown) date) RLS unknown) (unknown) (no (unknown) (unknown) Dr. Ayala many (units (unknown) date) years ago he does unknown) see her. He denies any numbness or tingling (unknown) (no (unknown) (unknown) ER Physician: (units ( unknown) date) Senia Hayden unknown) D.O. (unknown) (no (unknown) (unknown) EXTREMITIES: (units (u nknown) date) Normal range of unknown) motion, no clubbing or edema. Neurovascularly (unknown) (no (unknown) (unknown) Emergency Report (units (unknown) date) unknown) (unknown) (no (unknown) (unknown) Exam (units (unkno wn) date) unknown) (unknown) (no (unknown) (unknown) Extremity x-ray (units (unknown) date) #1: unknown) (unknown) (no (unknown) (unknown) Extremity x-ray (units (unknown) date) #2: unknown) (unknown) (no (unknown) (unknown) FINDINGS:? (units (unk nown) date) unknown) (unknown) (no (unknown) (unknown) FROM (units (unkno wn) date) unknown) (unknown) (no (unknown) (unknown) GENERAL: Alert (units (unknown) date) pleasant unknown) 82-year-old sitting in chair (unknown) (no (unknown) (unknown) General (units (unkno wn) date) unknown) (unknown) (no (unknown) (unknown) HEENT: Head (units (un known) date) atraumatic,EOMI, unknown) pupils reactive, face symmetric, moist mucous (unknown) (no (unknown) (unknown) HEPARIN FLUSH (units ( unknown) date) Allergy Unknown unknown) WAS Uncoded 10/05/22 13:25 (unknown) (no (unknown) (unknown) HOSPITALIZATION (units (unknown) date) unknown) (unknown) (no (unknown) (unknown) HPI - Extremity (units (unknown) date) Injury (Lower) unknown) (unknown) (no (unknown) (unknown) HPI Narrative: (units (unknown) date) unknown) (unknown) (no (unknown) (unknown) He is ambulating (units (unknown) date) with a walker at unknown) home he does not usually use a walker he has (unknown) (no (unknown) (unknown) History of (units (unk nown) date) Present Illness unknown) (unknown) (no (unknown) (unknown) Home Medications (units (unknown) date) unknown) (unknown) (no (unknown) (unknown) Hydromorphone HCl (units (unknown) date) (Hydromorphone 1 unknown) Mg Inj) 1 mg IM NOW ONE (unknown) (no (unknown) (unknown) IMPRESSION:? (units (u nknown) date) unknown) (unknown) (no (unknown) (unknown) INDICATIONS:? (units ( unknown) date) fall unknown) (unknown) (no (unknown) (unknown) Imaging Data (units (u nknown) date) unknown) (unknown) (no (unknown) (unknown) Initial Vital (units ( unknown) date) Signs unknown) (unknown) (no (unknown) (unknown) Initial Vital (units ( unknown) date) Signs: unknown) (unknown) (no (unknown) (unknown) Instructions: DI (units (unknown) date) for Knee Sprain, unknown) DI for Hip Pain (unknown) (no (unknown) (unknown) [facility] (units (unknown) date) [address] [place] [address] unknown) [place] [address] (unknown) (no (unknown) (unknown) Last Admin: (units (un known) date) 10/05/22 17:52 unknown) Dose: 1 mg (unknown) (no (unknown) (unknown) Loc: ED (units (unkno wn) date) unknown) (unknown) (no (unknown) (unknown) MDM - Extremity (units (unknown) date) Injury (Lower) unknown) (unknown) (no (unknown) (unknown) MDM Narrative (units ( unknown) date) unknown) (unknown) (no (unknown) (unknown) MR#: [id number] (units (unknown) date) unknown) (unknown) (no (unknown) (unknown) Medical decision (units (unknown) date) making narrative: unknown) (unknown) (no (unknown) (unknown) Medication (units (unk nown) date) Instructions unknown) Recorded Confirmed (unknown) (no (unknown) (unknown) Medication (units (unk nown) date) Instructions unknown) Recorded (unknown) (no (unknown) (unknown) Mode of arrival: (units (unknown) date) Wheelchair unknown) (unknown) (no (unknown) (unknown) Myrbetriq 50 mg (units (unknown) date) Tablet Extended unknown) Release 24 Hr (unknown) (no (unknown) (unknown) NEUROLOGICAL: (units ( unknown) date) Alert and oriented unknown) x4. (unknown) (no (unknown) (unknown) No Action (units (unkn own) date) unknown) (unknown) (no (unknown) (unknown) Ordered: (units (unkno wn) date) unknown) (unknown) (no (unknown) (unknown) Ordering (units (unkno wn) date) Provider: unknown) Senia Hayden D.O. (unknown) (no (unknown) (unknown) Orders (units (unkno wn) date) unknown) (unknown) (no (unknown) (unknown) Oxygen Delivery (units (unknown) date) Method 10/05/22 unknown) 13:19 (unknown) (no (unknown) (unknown) Oxygen Delivery (units (unknown) date) Method Room Air unknown) (unknown) (no (unknown) (unknown) PREVIOUS (units (unkno wn) date) unknown) (unknown) (no (unknown) (unknown) PROCEDURE:? XR (units (unknown) date) HIP W PEL IF DONE unknown) LT 2V (unknown) (no (unknown) (unknown) Patient (units (unkno wn) date) Disposition: Home unknown) (unknown) (no (unknown) (unknown) Patient History (units (unknown) date) unknown) (unknown) (no (unknown) (unknown) Patient has (units (un known) date) chronic ongoing unknown) pain and arthritis fell on his left hip last night. (unknown) (no (unknown) (unknown) Patient is a (units (u nknown) date) 82-year-old unknown) history of arthritis presents today with left hip and (unknown) (no (unknown) (unknown) Patient: (units (unkno wn) date) Rodrigo Chavez MR#: unknown) [id number] (unknown) (no (unknown) (unknown) Patient: (units (unkno wn) date) ScottRodrigo unknown) (unknown) (no (unknown) (unknown) Pelvis is stable (units (unknown) date) distal. Knee is unknown) stable distal pedal pulse intact (unknown) (no (unknown) (unknown) Prescriptions: (units (unknown) date) unknown) (unknown) (no (unknown) (unknown) Previous Rx's (units ( unknown) date) unknown) (unknown) (no (unknown) (unknown) Procedure: XR hip (units (unknown) date) w pel if done LT unknown) 2V (unknown) (no (unknown) (unknown) Pulse Oximetry 98 (units (unknown) date) 10/05/22 13:19 unknown) (unknown) (no (unknown) (unknown) Pulse Oximetry 98 (units (unknown) date) unknown) (unknown) (no (unknown) (unknown) Pulse Rate 69 (units ( unknown) date) 10/05/22 13:19 unknown) (unknown) (no (unknown) (unknown) Pulse Rate 69 (units ( unknown) date) unknown) (unknown) (no (unknown) (unknown) RECORDED (units (unkno wn) date) unknown) (unknown) (no (unknown) (unknown) RESPIRATORY: (units (u nknown) date) Breath sounds unknown) equal bilaterally, no wheezes rales or rhonchi. (unknown) (no (unknown) (unknown) ROS Unobtainable: (units (unknown) date) All systems unknown) reviewed + are unremarkable except as noted in HPI (unknown) (no (unknown) (unknown) Radiologist's (units ( unknown) date) Impression: unknown) (unknown) (no (unknown) (unknown) Referrals: (units (unk nown) date) unknown) (unknown) (no (unknown) (unknown) Related Data (units (u nknown) date) unknown) (unknown) (no (unknown) (unknown) Respiratory Rate (units (unknown) date) 17 10/05/22 13:19 unknown) (unknown) (no (unknown) (unknown) Respiratory Rate (units (unknown) date) 17 unknown) (unknown) (no (unknown) (unknown) Review of Systems (units (unknown) date) unknown) (unknown) (no (unknown) (unknown) Norberto Newby MD (units (unknown) date) [Primary Care unknown) Provider] (unknown) (no (unknown) (unknown) Rx Instructions: (units (unknown) date) unknown) (unknown) (no (unknown) (unknown) SKIN: Warm, dry, (units (unknown) date) no laceration, no unknown) petechiae, no rashes or lesions. (unknown) (no (unknown) (unknown) Signed By: (units (unk nown) date) unknown) (unknown) (no (unknown) (unknown) Signed (units (unkno wn) date) unknown) (unknown) (no (unknown) (unknown) Smoking Status: (units (unknown) date) Never smoker unknown) (unknown) (no (unknown) (unknown) Social History (units (unknown) date) (Reviewed 10/05/22 unknown) @ 17:49 by Senia Hayden DO) (unknown) (no (unknown) (unknown) Soft tissues:? No (units (unknown) date) suspicious soft unknown) tissue calcifications or masses.? 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 2 (units ( unknown) date) views of the hip unknown) were acquired.? (unknown) (no (unknown) (unknown) Temperature 98.5 (units (unknown) date) F 10/05/22 13:19 unknown) (unknown) (no (unknown) (unknown) Temperature 98.5 (units (unknown) date) F unknown) (unknown) (no (unknown) (unknown) Time Seen by (units (u nknown) date) Provider: 10/05/22 unknown) 17:23 (unknown) (no (unknown) (unknown) Tylenol for his (units (unknown) date) chronic ongoing unknown) pain. 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 with (unknown) (no (unknown) (unknown) Vital Signs - 8 (units (unknown) date) hr unknown) (unknown) (no (unknown) (unknown) Vital Signs (units (un known) date) unknown) (unknown) (no (unknown) (unknown) Vital signs: (units (u nknown) date) unknown) (unknown) (no (unknown) (unknown) WITH LARGE (units (unk nown) date) unknown) (unknown) (no (unknown) (unknown) Xtampza ER 13.5 (units (unknown) date) mg unknown) Cap,Sprinkl,Er12hr (Dont Crush) (unknown) (no (unknown) (unknown) acetaminophen (units ( unknown) date) [ACETAMINOPHEN] unknown) Allergy Mild ITCHING Verified 10/05/22 13:25 (unknown) (no (unknown) (unknown) alcohol intake (units (unknown) date) frequency: other unknown) (unknown) (no (unknown) (unknown) and below (units (unkn own) date) unknown) (unknown) (no (unknown) (unknown) aspirin 81 mg (units ( unknown) date) tablet,delayed 81 unknown) mg PO DAILY 10/05/22 10/05/22 (unknown) (no (unknown) (unknown) aspirin (units (unkno wn) date) [Aspir-81] 81 mg unknown) Tablet,Delayed Release (Dr/Ec) (unknown) (no (unknown) (unknown) but now needs to (units (unknown) date) use a walker. He unknown) takes oxycodone 3 times a day along with (unknown) (no (unknown) (unknown) capsule sprinkle (units (unknown) date) extend release unknown) (unknown) (no (unknown) (unknown) care provider. (units (unknown) date) unknown) (unknown) (no (unknown) (unknown) dizziness (units (unkn own) date) lightheadedness unknown) chest pain shortness of breath. No nausea or (unknown) (no (unknown) (unknown) famotidine 20 mg (units (unknown) date) Tablet unknown) (unknown) (no (unknown) (unknown) famotidine 20 mg (units (unknown) date) tablet 20 mg PO unknown) BID 10/05/22 10/05/22 (unknown) (no (unknown) (unknown) finasteride 5 mg (units (unknown) date) Tablet unknown) (unknown) (no (unknown) (unknown) finasteride 5 mg (units (unknown) date) tablet 5 mg PO unknown) DAILY 10/05/22 10/05/22 (unknown) (no (unknown) (unknown) guarding or (units (un known) date) rebound. unknown) (unknown) (no (unknown) (unknown) heparin [HEPARIN] (units (unknown) date) Allergy Unknown unknown) Verified 10/05/22 13:25 (unknown) (no (unknown) (unknown) intact (units (unkno wn) date) unknown) (unknown) (no (unknown) (unknown) joint space (units (un known) date) unknown) (unknown) (no (unknown) (unknown) left knee pain. (units (unknown) date) He says he tripped unknown) and fell last night. She denies any (unknown) (no (unknown) (unknown) membranes (units (unkn own) date) unknown) (unknown) (no (unknown) (unknown) mirabegron 50 mg (units (unknown) date) tablet,extended 50 unknown) mg PO DAILY 10/05/22 10/05/22 (unknown) (no (unknown) (unknown) morphine (units (unkno wn) date) [MORPHINE] AdvReac unknown) Mild NAUSEA Verified 10/05/22 13:25 (unknown) (no (unknown) (unknown) must administer (units (unknown) date) with a meal/food unknown) (unknown) (no (unknown) (unknown) narrowing.? (units (un known) date) Degenerative unknown) changes noted lower lumbar spine (unknown) (no (unknown) (unknown) oxycodone 5 mg (units (unknown) date) Capsule unknown) (unknown) (no (unknown) (unknown) oxycodone 5 mg (units (unknown) date) capsule 5 mg PO unknown) Q4H PRN Pain (Scale Score 10/05/22 10/05/22 (unknown) (no (unknown) (unknown) oxycodone (units (unkn own) date) myristate 13.5 mg unknown) 13.5 mg PO DAILY 10/05/22 10/05/22 (unknown) (no (unknown) (unknown) pain control at (units (unknown) date) home. X-rays are unknown) negative. At this time ambulate with walker. (unknown) (no (unknown) (unknown) phenytoin 100 (units ( unknown) date) mg/4 mL Suspension unknown) (unknown) (no (unknown) (unknown) phenytoin 100 (units ( unknown) date) mg/4 mL oral 100 unknown) mg PO BID 10/05/22 10/05/22 (unknown) (no (unknown) (unknown) prescribed. Ice (units (unknown) date) and elevate. unknown) Please follow-up with orthopedic or your primary (unknown) (no (unknown) (unknown) release 24 hr (units ( unknown) date) (Myrbetriq) unknown) (unknown) (no (unknown) (unknown) release (units (unkno wn) date) unknown) (unknown) (no (unknown) (unknown) ring appears (units (u nknown) date) intact.? 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 He is (units (unknown) date) able to get up and unknown) walk around however he used to use a cane Social History date description facility 2022-10-05 00:00 Never smoked tobacco ([facility] Vital Signs date measurement value units 2022-10-05 00:00 BMI 27.4 kg/m2 2022-10-05 00:00 BP_diastolic 67 mmHg 2022-10-05 00:00 BP_systolic 157 mmHg 2022-10-05 00:00 heart_rate 60 /min 2022-10-05 00:00 height_metric 167.64 cm 2022-10-05 00:00 height_standard 66 in 2022-10-05 00:00 o2_saturation 95 % 2022-10-05 00:00 respiration_rate 18 /min 2022-10-05 00:00 temperature_metric 36.94 C 2022-10-05 00:00 temperature_standard 98.5 F 2022-10-05 00:00 weight_metric 77.11 kg 2022-10-05 00:00 weight_standard 170 lb
[2022-11-17 17:49] VITALS: BP 164/75
[2022-11-17 17:55] LABS: BILIRUBIN,URINE NEGATIVE (NEGATIVE); GLUCOSE, URINE (UA) NEGATIVE (NEGATIVE); KETONES,URINE (UA) NEGATIVE (NEGATIVE); LEUKOCYTE ESTERASE, URINE SMALL (NEGATIVE); NITRITE,URINE NEGATIVE (NEGATIVE); OCCULT BLOOD,URINE LARGE (NEGATIVE); PROTEIN,URINE 30 mg/dL (NEGATIVE); UROBILINOGEN,URINE 0.2 (NORMAL) E.U./dL (NORMAL)
[2022-11-17 17:57] LABS: CLARITY,URINE HAZY (CLEAR)
[2022-11-17 18:07] LABS: BACTERIA,URINE Few /HPF (None Seen); RBC,URINE TNTC /HPF (0-5); SQUAMOUS EPITHELIAL CELL,UR RARE Squamous (<= Few)
[2022-11-17] MEDS ORDERED: cephALEXin 250 MG CAPSULE PO STA (18:21)
--- NOTE | 2022-11-17 18:24 | ED Physician Documentation ---
History of Present Illness - Stated complaint Stated Complaint: - Chief complaint Chief Complaint: General - Additonal information Additional information: Patient 82-year-old male presenting to the emergency department with inability to urinate. Reports has not been able to urinate for the last several hours. Reports history of recently diagnosed bladder carcinoma and infrequent episodes of hematuria over the course of the last few weeks. Is currently following with urology and oncology services both at [facility] as well as [facility]. Reports 1 episode of urinary tract outlet obstruction that occurred years ago and states currently takes Flomax. Denies use of blood thinning medications. Reports lower abdominal discomfort but denies fever, chills, chest pain or shortness of breath. Review of Systems Constitutional: denies: Fever Eyes: denies: Loss of vision Ears: denies: Loss of hearing Nose: denies: Rhinorrhea / runny nose Throat: denies: Dental pain / toothache Cardiac: denies: Chest pain / pressure GI: denies: Nausea, Vomiting, Diarrhea : reports: Unable to Void Skin: denies: Rash PD PAST MEDICAL HISTORY - Past Medical History Cardiovascular: Hypertension Respiratory: Sleep apnea Neuro: Seizure disorder Endocrine/Autoimmune: None GI: GERD, Pancreatitis : Kidney stones, Other HEENT: Chronic hearing loss, Other Psych: Anxiety Musculoskeletal: Osteoarthritis, Chronic back pain, Other Derm: Psoriasis - Past Surgical History Past Surgical History: Yes General: Cholecystectomy, Appendectomy, Bowel surgery, Splenectomy Ortho: Hip replacement, Arthroscopic surgery HEENT: Tonsil/Adenoidectomy, Other - Present Medications Home Medications: Ambulatory Orders Medication Instructions Recorded Confirmed Aspirin EC [Ecotrin] 81 mg PO DAILY 06/27/13 11/29/21 Vit A,C & E/Lutein/Minerals 1 each PO DAILY 06/27/13 11/29/21 [Ocuvite with Lutein Tablet] Cyanocobalamin (Vitamin B-12) 1,000 mcg PO DAILY 02/09/14 11/29/21 [Vitamin B-12] Cholecalciferol (Vitamin D3) 2,000 units ORAL DAILY 05/03/14 11/29/21 [Vitamin D3] levOCARNitine tartrate 250 mg PO BID 05/09/18 11/29/21 [l-Carnitine] polyethylene glycoL 3350 [Miralax] 17 gm PO DAILY 01/06/19 11/29/21 Finasteride 5 mg PO DAILY PM 02/21/19 11/29/21 Mirabegron [Myrbetriq] 50 mg PO DAILY PM 02/21/19 11/29/21 Famotidine [Pepcid] 20 mg PO BID 07/28/19 11/29/21 Phenytoin Infatab [Dilantin 50 mg PO QPM 07/28/19 11/29/21 Infatab] Phenytoin [Dilantin] 300 mg PO DAILY PM 07/28/19 12/01/21 [place]-3/Dha/Epa/Fish Oil [Fish Oil 1,000 mg PO DAILY 11/29/21 11/29/21 1,000 mg Softgel] Oxycodone Myristate [Xtampza ER] 13.5 mg PO TID 11/29/21 12/01/21 oxyCODONE [Roxicodone] 5 mg PO TID PRN 12/01/21 12/01/21 cephALEXin [Keflex] 500 mg PO Q6H #28 cap 11/17/22 - Allergies Allergies/Adverse Reactions: Allergies Allergy/AdvReac Type Severity Reaction Status Date / Time amitriptyline [Amitriptyline] Allergy Intermediate Hallucinati Verified 11/17/22 17:49 ons heparinoids Allergy Intermediate Rash Verified 11/17/22 17:49 baclofen Allergy Unknown Verified 11/17/22 17:49 celecoxib Allergy Unknown Verified 11/17/22 17:49 diphenhydramine Allergy paradoxical Verified 11/17/22 17:49 reaction divalproex sodium Allergy pancreatiti Verified 11/17/22 17:49 [From Depakote] s glucosamine Allergy Unknown Verified 11/17/22 17:49 naproxen Allergy GI pain Verified 11/17/22 17:49 oxcarbazepine Allergy Unknown Verified 11/17/22 17:49 [From Trileptal] pregabalin [From Lyrica] Allergy pancreatiti Verified 11/17/22 17:49 s - Social History Does the pt smoke?: No Smoking Status: Never smoker Does the pt drink ETOH?: Yes Does the pt have substance abuse?: No - Immunizations Immunizations are current?: Yes - POLST Patient has POLST: No POLST Status: Full Code PD ED PE NORMAL - Vitals Vital signs reviewed: Yes - General General: Alert and oriented X 3, Well developed/nourished, Other (Patient acutely distressed on arrival.) - HEENT HEENT: Atraumatic, PERRL, EOMI, Ears normal, Moist mucous membranes, Pharynx benign - Neck Neck: Supple, no meningeal sign, No bony TTP, No adenopathy, No JVD - Cardiac Cardiac: RRR - Respiratory Respiratory: No respiratory distress - Abdomen Abdomen: Normal bowel sounds, Soft, Non tender, No organomegaly - Male Male : Other (Normal external urogenital exam. 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, No motor deficit, No sensory deficit, Normal speech Results - Vitals Vitals: Oxygen O2 Source Room air - Labs Labs: Microbiology 11/17/22 17:46 Urine Culture - Final Urine,Random No growth Laboratory Tests 11/17/22 17:46 Urine Color DARK YELLOW Urine Clarity HAZY Urine pH 7.0 Ur Specific Sandy 1.010 Urine Protein 30 H Urine Glucose (UA) NEGATIVE Urine Ketones NEGATIVE Urine Occult Blood LARGE H Urine Nitrite NEGATIVE Urine Bilirubin NEGATIVE Urine Urobilinogen 0.2 (NORMAL) Ur Leukocyte Esterase SMALL H Urine RBC TNTC H Urine WBC 11-25 H Ur Squamous Epith Cells RARE Squamous Urine Bacteria Few Ur Microscopic Review INDICATED Urine Culture Comments INDICATED PD Medical Decision Making - ED course Complexity details: reviewed results, d/w patient, d/w family ED course: Patient 82-year-old male presenting to the emergency department with acute bladder outlet obstruction in setting of recent diagnosis of bladder carcinoma. Distressed on arrival to the emergency department but afebrile and otherwise hemodynamically stable. Catheter was placed shortly after arrival with significant output. Urine was pink-tinged with no wilbert blood or identifiable clots. I did obtain a urine analysis which did show some indications of infection in the setting of hematuria. I will send for culture and treat this with course of oral antibiotics. All of patient's lower pelvic pain resolved after the insertion of his catheter. He was monitored in the emergency department for a few hours to ensure hemodynamic stability. At this time I will discharge for follow-up with urology/oncology for further work-up of his bladder carcinoma. Clear return precautions given prior to discharge. Departure - Departure Disposition: 01 Home, Self Care Clinical Impression: Bladder outlet obstruction, Bladder carcinoma, Lower urinary tract infection, acute Instructions: ED Catheter Care Gomez, ED Retention Urinary Male Prescriptions: cephALEXin [Keflex] 500 mg PO Q6H #28 cap Comments: Prescription sent electronically to [facility] in [place]. Please follow-up with your urologist first thing in the morning. If it anytime you have new or worsening symptoms please not hesitate to return. Discharge Date/Time: 11/17/22 19:41
== END 2022-11-17 19:41 | disposition home or self-care (01) ==
LOC: EDUNIT# → ED 17:21
DX: N32.0 Bladder-neck obstruction (principal); N39.0 Urinary tract infection, site not specified; R31.9 Hematuria, unspecified; C67.9 Malignant neoplasm of bladder, unspecified
CPT/HCPCS: 81001; 87086; 99283; 99284; A9270; 81003

== ENCOUNTER 2022-11-25 12:57 | Outpatient (CLI) | payer MEDICARE, OTHER | END 2022-11-25 12:58 | disposition home or self-care (01) | LOC: LAB.N 12:57 | PROVIDERS: ATTEND Family Medicine | DX: R56.9 Unspecified convulsions (principal) | CPT/HCPCS: 36415; 80185 ==

== ENCOUNTER 2022-12-18 09:47 | Outpatient (CLI) | payer MEDICARE, OTHER ==
[2022-12-18 12:08] LABS: BASOPHILS % (AUTO) 0.4 %; EOSINOPHILS % (AUTO) 0.5 %; HCT - HEMATOCRIT 37.2 % (42.0-52.0); LYMPHOCYTES # (AUTO) 1.3 10^3/uL (1.5-3.5); LYMPHOCYTES % (AUTO) 17.7 %; MEAN CORPUSCULAR HEMOGLOBIN 32.6 pg (27.0-31.0); MEAN CORPUSCULAR HGB CONC 32.3 g/dL (32.0-36.0); MEAN CORPUSCULAR VOLUME 101.1 fL (80.0-94.0); MEAN PLATELET VOLUME 9.8 fL (7.4-11.4); MONOCYTES # (AUTO) 0.6 10^3/uL (0.0-1.0); MONOCYTES % (AUTO) 8.2 %; NEUTROPHILS # (AUTO) 5.5 10^3/uL (1.5-6.6); NEUTROPHILS % (AUTO) 72.9 %; PLT - PLATELET COUNT 337 10^3/uL (130-450); RED BLOOD COUNT 3.68 10^6/uL (4.70-6.10); RED CELL DISTRIBUTION WIDTH 14.5 % (12.0-15.0); WHITE BLOOD COUNT 7.6 x10^3/uL (4.8-10.8)
[2022-12-18 12:29] LABS: THYROID STIMULATING HORMONE 1.26 uIU/mL (0.34-5.60)
[2022-12-18 12:33] LABS: ESTIMATED AVERAGE GLUCOSE 105 mg/dL (70-100); HEMOGLOBIN A1c% 5.3 % (4.27-6.07)
[2022-12-18 12:34] LABS: ALBUMIN 3.9 g/dL (3.2-5.5); ALBUMIN/GLOBULIN RATIO 1.2 (1.0-2.2); ALKALINE PHOSPHATASE 99 IU/L (42-121); ALT ALANINE AMINOTRANSFERASE 45 IU/L (10-60); AST ASPARTATE AMINOTRANSFERASE 31 IU/L (10-42); BILIRUBIN,TOTAL 0.8 mg/dL (0.2-1.0); BUN - BLOOD UREA NITROGEN 27 mg/dL (6-20); CALCIUM 9.7 mg/dL (8.5-10.3); CARBON DIOXIDE - CO2 29 mmol/L (21-32); CHLORIDE 107 mmol/L (101-111); CHOL/HDL RATIO 2.6 (<5.0); CHOLESTEROL 202 mg/dL; CREATININE 0.7 mg/dL (0.6-1.2); GFR - MDRD 108 (>89); GLUCOSE 104 mg/dL (70-100); HDL CHOLESTEROL 77 mg/dL; LDL CHOLESTEROL,CALCULATED 113 mg/dL; LDL/HDL RATIO 1.5 (<3.6); POTASSIUM 4.7 mmol/L (3.5-5.0); SODIUM 141 mmol/L (135-145); TOTAL PROTEIN 7.2 g/dL (6.7-8.2); TRIGLYCERIDES 61 mg/dL; VLDL CHOLESTEROL 12 mg/dL
== END 2022-12-18 09:48 | disposition home or self-care (01) ==
LOC: LAB.N 09:47
PROVIDERS: ATTEND Family Medicine
DX: R32 Unspecified urinary incontinence (principal); N40.0 Benign prostatic hyperplasia without lower urinary tract symptoms; R73.9 Hyperglycemia, unspecified; M21.6X9 Other acquired deformities of unspecified foot; Z79.891 Long term (current) use of opiate analgesic
CPT/HCPCS: 36415; 80053; 80061; 83036; 83721; 84443; 85025

== ENCOUNTER 2023-02-05 16:51 | Inpatient (IN) | payer MEDICARE, OTHER ==
[2023-02-05 17:22] LABS: BASOPHILS % (AUTO) 0.6 %; HCT - HEMATOCRIT 31.1 % (42.0-52.0); HGB - HEMOGLOBIN 10.4 g/dL (14.0-18.0); LYMPHOCYTES # (AUTO) 0.3 10^3/uL (1.5-3.5); LYMPHOCYTES % (AUTO) 4.2 %; MEAN CORPUSCULAR HEMOGLOBIN 32.6 pg (27.0-31.0); MEAN CORPUSCULAR HGB CONC 33.4 g/dL (32.0-36.0); MEAN CORPUSCULAR VOLUME 97.5 fL (80.0-94.0); MEAN PLATELET VOLUME 8.9 fL (7.4-11.4); MONOCYTES # (AUTO) 0.3 10^3/uL (0.0-1.0); NEUTROPHILS # (AUTO) 6.1 10^3/uL (1.5-6.6); NEUTROPHILS % (AUTO) 90.9 %; NRBC ABSOLUTE COUNT (AUTO) 0.03 x10^3/uL; NUCLEATED RED BLOOD CELLS AUTO 0.4 /100WBC; PLT - PLATELET COUNT 315 10^3/uL (130-450); RED BLOOD COUNT 3.19 10^6/uL (4.70-6.10); RED CELL DISTRIBUTION WIDTH 14.6 % (12.0-15.0); WHITE BLOOD COUNT 6.7 x10^3/uL (4.8-10.8)
[2023-02-05] MEDS ORDERED: SODIUM CHLORIDE 0.9% 1,000 ML IV STA ×2 (17:26→17:31)
[2023-02-05] MEDS ORDERED: VANCOMYCIN INJ 1.5 GM in SODIUM CHLORIDE 0.9% 500 ML IV STA (17:28)
[2023-02-05] MEDS ORDERED: CEFEPIME 2 GM in SODIUM CHLORIDE 0.9% MINIBAG 100 ML IV STA (17:28)
[2023-02-05 17:29] LABS: INR 1.1 (0.8-1.2); PT - PROTHROMBIN TIME 12.7 secs (9.9-12.6)
--- NOTE | 2023-02-05 17:29 | ED Physician Documentation ---
History of Present Illness - Stated complaint Stated Complaint: SZ - Chief complaint Chief Complaint: Fever - Additonal information Additional information: 82-year-old male who has a known history of a seizure disorder on Dilantin as well as bladder cancer currently undergoing chemoradiation presents to the emergency department for evaluation of reported seizure-like activity. The patient underwent chemotherapy and radiation at [facility] cancer clinics today. On the drive home his reports that he began having some generalized shaking. He was awake and talking throughout this. Suspecting that he was having a seizure he did take and as needed dose of Ativan 0.5 mg. On presentation to the emergency department he is noted to be febrile 103.4. Mild tachycardia with a heart rate in the 110s. He is normotensive 157/64. The patient is alert. Does not have any obvious deficits though does have some difficulty with word finding. Per his no recent fevers. No recent cough or congestion. He does have some chronic pain in his pelvic region secondary to the radiation. Followed by [facility] oncology. Dr. Chiu is his oncologist Patient reports that he had cancer staging imaging completed in December that included PET scan, MRI and CT. There were no findings of metastasis. He does have a history of thrombocytopenia Review of Systems Constitutional: reports: Fever Neurologic: reports: Seizure PD PAST MEDICAL HISTORY - Past Medical History Cardiovascular: Hypertension Respiratory: Sleep apnea Neuro: Seizure disorder Endocrine/Autoimmune: None GI: GERD, Pancreatitis : Kidney stones, Other HEENT: Chronic hearing loss, Other Psych: Anxiety Musculoskeletal: Osteoarthritis, Chronic back pain, Other Derm: Psoriasis - Past Surgical History Past Surgical History: Yes General: Cholecystectomy, Appendectomy, Bowel surgery, Splenectomy Ortho: Hip replacement, Arthroscopic surgery HEENT: Tonsil/Adenoidectomy, Other - Present Medications Home Medications: Ambulatory Orders Medication Instructions Recorded Confirmed Aspirin EC [Ecotrin] 81 mg PO DAILY 06/27/13 11/29/21 Vit A,C & E/Lutein/Minerals 1 each PO DAILY 06/27/13 11/29/21 [Ocuvite with Lutein Tablet] Cyanocobalamin (Vitamin B-12) 1,000 mcg PO DAILY 02/09/14 11/29/21 [Vitamin B-12] Cholecalciferol (Vitamin D3) 2,000 units ORAL DAILY 05/03/14 11/29/21 [Vitamin D3] levOCARNitine tartrate 250 mg PO BID 05/09/18 11/29/21 [l-Carnitine] polyethylene glycoL 3350 [Miralax] 17 gm PO DAILY 01/06/19 11/29/21 Finasteride 5 mg PO DAILY PM 02/21/19 11/29/21 Mirabegron [Myrbetriq] 50 mg PO DAILY PM 02/21/19 11/29/21 Famotidine [Pepcid] 20 mg PO BID 07/28/19 11/29/21 Phenytoin Infatab [Dilantin 50 mg PO QPM 07/28/19 11/29/21 Infatab] Phenytoin [Dilantin] 300 mg PO DAILY PM 07/28/19 12/01/21 [place]-3/Dha/Epa/Fish Oil [Fish Oil 1,000 mg PO DAILY 11/29/21 11/29/21 1,000 mg Softgel] Oxycodone Myristate [Xtampza ER] 13.5 mg PO TID 11/29/21 12/01/21 oxyCODONE [Roxicodone] 5 mg PO TID PRN 12/01/21 12/01/21 cephALEXin [Keflex] 500 mg PO Q6H #28 cap 11/17/22 - Allergies Allergies/Adverse Reactions: Allergies Allergy/AdvReac Type Severity Reaction Status Date / Time amitriptyline [Amitriptyline] Allergy Intermediate Hallucinati Verified 02/05/23 17:03 ons heparinoids Allergy Intermediate Rash Verified 02/05/23 17:03 baclofen Allergy Unknown Verified 02/05/23 17:03 celecoxib Allergy Unknown Verified 02/05/23 17:03 diphenhydramine Allergy paradoxical Verified 02/05/23 17:03 reaction divalproex sodium Allergy pancreatiti Verified 02/05/23 17:03 [From Depakote] s glucosamine Allergy Unknown Verified 02/05/23 17:03 naproxen Allergy GI pain Verified 02/05/23 17:03 oxcarbazepine Allergy Unknown Verified 02/05/23 17:03 [From Trileptal] pregabalin [From Lyrica] Allergy pancreatiti Verified 02/05/23 17:03 s - Social History Does the pt smoke?: No Smoking Status: Never smoker Does the pt drink ETOH?: Yes Does the pt have substance abuse?: No - Immunizations Immunizations are current?: Yes - POLST Patient has POLST: No POLST Status: Full Code PD ED PE EXPANDED - General General: Alert, Other (Geriatric) - Cardiac Cardiac: Regular Rate, Murmur Present, Radial strong equal, Pedal strong equal, Cap refill < 2 sec - Respiratory Respiratory: Clear to ausultation lorenzo. No: Distress, Labored - Abdomen Abdomen: Normal Bowel sounds. No: Tender to palpation (Mild tender to palpation lower pubic region. Unremarkable penile exam) - Derm Derm: Normal color, Warm and dry. No: Rash - Extremities Extremities: Normal, Deformity. No: Tenderness - Neuro Neuro: Confused. No: CNII-XII intact, Normal speech (Difficulty with word finding) - GCS Eye Opening: Spontaneous Motor: Obeys Commands Verbal: Confused Total: 14 Results - Vitals Vitals: Vital Signs - 24 hr 02/05/23 16:57 Temperature 103.4 C H Heart Rate 108 H Respiratory 20 Rate Blood Pressure 157/64 H O2 Saturation 100 Oxygen O2 Source Room air - EKG (time done) 1747 EKG releavant findings:: EKG personally interpreted by author of this note. Relevant findings are: Rate: Rate (enter#) (106) Rhythm: Sinus tachycardia [place]: Other Intervals: RBBB QRS: Normal Compare to prior EKG: Old EKG unavailable Computer interpretation: Agree with computer - Labs Labs: Laboratory Tests 02/05/23 02/05/23 02/05/23 17:17 17:17 17:17 WBC 6.7 RBC 3.19 L Hgb 10.4 L Hct 31.1 L MCV 97.5 H MCH 32.6 H MCHC 33.4 RDW 14.6 Plt Count 315 MPV 8.9 Neut # (Auto) 6.1 Lymph # (Auto) 0.3 L [place] # (Auto) 0.3 Eos # (Auto) 0.0 Baso # (Auto) 0.0 Absolute Nucleated RBC 0.03 Nucleated RBC % 0.4 PT INR Sodium 136 Potassium 4.0 Chloride 102 Carbon Dioxide 24 Anion Gap 10.0 BUN 17 Creatinine 0.7 Estimated GFR (MDRD) 108 Glucose 156 H Lactic Acid 1.3 Calcium 9.5 Total Bilirubin 0.7 AST 38 ALT 50 Alkaline Phosphatase 125 H Total Protein 6.7 Albumin 3.5 Globulin 3.2 Albumin/Globulin Ratio 1.1 Lipase 23 Phenytoin 02/05/23 02/05/23 17:17 17:17 WBC RBC Hgb Hct MCV MCH MCHC RDW Plt Count MPV Neut # (Auto) Lymph # (Auto) [place] # (Auto) Eos # (Auto) Baso # (Auto) Absolute Nucleated RBC Nucleated RBC % PT 12.7 H INR 1.1 Sodium Potassium Chloride Carbon Dioxide Anion Gap BUN Creatinine Estimated GFR (MDRD) Glucose Lactic Acid Calcium Total Bilirubin AST ALT Alkaline Phosphatase Total Protein Albumin Globulin Albumin/Globulin Ratio Lipase Phenytoin 10.1 - Rads (name of study) cxr Relevant Findings:: Final report received (No acute process)
[2023-02-05 17:35] LABS: ALBUMIN 3.5 g/dL (3.2-5.5); ALBUMIN/GLOBULIN RATIO 1.1 (1.0-2.2); BILIRUBIN,TOTAL 0.7 mg/dL (0.2-1.0); CALCIUM 9.5 mg/dL (8.5-10.3); CREATININE 0.7 mg/dL (0.6-1.2); TOTAL PROTEIN 6.7 g/dL (6.7-8.2)
--- NOTE | 2023-02-05 17:41 | XRAY Report ---
PROCEDURE: Chest 1 View X-Ray INDICATIONS: Sepsis TECHNIQUE: One view of the chest was acquired. COMPARISON: .418 FINDINGS: Surgical changes and devices: Right chest wall kelley catheter is present, tip of which is in the mid SVC. Lungs and pleura: No pleural effusions or pneumothorax. Lungs are clear. Mediastinum: Mediastinal contours appear normal. Heart size is normal. Bones and chest wall: No suspicious bony lesions. Overlying soft tissues appear unremarkable. IMPRESSION: No acute process. Reviewed by: Nidia Allred MD on 02/05/2023 5:40 PM PDT Approved by: Nidia Allred MD on 02/05/2023 5:40 PM PDT Station ID: [id number]
[2023-02-05] MEDS ORDERED: iohexoL-300 100 ML VIAL ONE (17:42)
[2023-02-05 18:21] LABS: BILIRUBIN,URINE NEGATIVE (NEGATIVE); GLUCOSE, URINE (UA) NEGATIVE (NEGATIVE); KETONES,URINE (UA) NEGATIVE (NEGATIVE); LEUKOCYTE ESTERASE, URINE SMALL (NEGATIVE); NITRITE,URINE NEGATIVE (NEGATIVE); OCCULT BLOOD,URINE LARGE (NEGATIVE); PROTEIN,URINE 100 mg/dL (NEGATIVE); UROBILINOGEN,URINE 0.2 (NORMAL) E.U./dL (NORMAL)
[2023-02-05] MEDS ORDERED: PHENYTOIN INJ 500 MG in SODIUM CHLORIDE 0.9% 100ML 100 ML IV STA (18:25)
[2023-02-05 18:28] LABS: BACTERIA,URINE Rare /HPF (None Seen); CLARITY,URINE CLOUDY (CLEAR); RBC,URINE TNTC /HPF (0-5); SQUAMOUS EPITHELIAL CELL,UR RARE Squamous (<= Few); WBC,URINE >25 /HPF (0-3)
[2023-02-05] MEDS ORDERED: iohexoL-300 100 ML VIAL IVP ONE (18:48)
--- NOTE | 2023-02-05 18:52 | CT Report ---
PROCEDURE: HEAD WO INDICATIONS: sepsis, difficulty with word finding; hx of cancer TECHNIQUE: Noncontrast 4.5 mm thick angled axial sections acquired from the foramen magnum to the vertex. For r adiation dose reduction, the following was used: automated exposure control, adjustment of mA and/or kV according to patient size. COMPARISON: None. FINDINGS: Image quality: Degraded by motion artifact. CSF spaces: Basal cisterns are patent. No extra-axial fluid collections. Ventricles are normal in size and shape. Brain: No midline shift. No intracranial masses or hemorrhage. Small-white matter interface is norm al. Skull and face: Calvarium and visualized facial bones are intact, without suspicious lesions. Sinuses: Visualized sinuses and mastoids are clear. IMPRESSION: No acute intracranial abnormality. Reviewed by: Nidia Allred MD on 02/05/2023 6:50 PM PDT Approved by: Nidia Allred MD on 02/05/2023 6:50 PM PDT Station ID: [id number]
--- NOTE | 2023-02-05 18:55 | CT Report ---
PROCEDURE: ABDOMEN/PELVIS W INDICATIONS: hx of bladder cancer; sepsis CONTRAST: 100mL Omni 300 TECHNIQUE: After the administration of IV contrast, 5 mm thick sections acquired from the diaphragms to the symp hysis. 5 mm thick coronal and sagittal reformats were acquired. For radiation dose reduction, the f ollowing was used: automated exposure control, adjustment of mA and/or kV according to patient size. COMPARISON: 11/08/2022 CT examination FINDINGS: Image quality: Excellent. Lung bases and heart: New small pericardial effusion. Liver: No solid mass. Gallbladder and biliary tree: Cholecystectomy. No biliary ductal dilatation. Spleen: No splenomegaly. Pancreas: No pancreatic ductal dilation. Adrenals: No adrenal nodule. Kidneys and ureters: No hydronephrosis. Right ureteral stent. Bowel and peritoneum: Stomach and small bowel within normal limits. Appendix not seen. No evidence of appendicitis. There is moderate thickening of the sigmoid colon within the anterior pelvis, with mod erate surrounding fat stranding. Lymph nodes: No central or retroperitoneal adenopathy. Vessels: No infrarenal aortic aneurysm. PELVIS Reproductive organs: Unremarkable. Bladder: Eccentric urinary bladder thickening present, as before. Fastening surrounds the urinary luciana dder which may indicate cystitis. Pelvic lymph nodes: No pelvic adenopathy by size criteria. Bones: No aggressive osseous abnormality. Other: No significant ventral or inguinal hernia. IMPRESSION: 1. Findings which may indicate cystitis in the appropriate clinical/laboratory setting. 2. Thickening of the sigmoid colon within the anterior pelvis, consistent with infection, ischemia, o r inflammation. 3. Urinary bladder masses, as before. Reviewed by: Nidia Allred MD on 02/05/2023 6:54 PM PDT Approved by: Nidia Allred MD on 02/05/2023 6:54 PM PDT Station ID: [id number]
[2023-02-05] MEDS ORDERED: ONDANSETRON 4 MG/2 ML VIAL IVP PRN (19:45)
[2023-02-05 20:45] LABS: B. PARAPERTUSSIS- RESP PCR PAN NOT DETECTED; B. PERTUSSIS- RESP PCR PANEL NOT DETECTED; C. PNEUMONIAE- RESP PCR PANEL NOT DETECTED; CORONAVIRUS 229E-RESP PCR NOT DETECTED; CORONAVIRUS HKU1-RESP PCR NOT DETECTED; CORONAVIRUS NL63-RESP PCR NOT DETECTED; CORONAVIRUS OC43-RESP PCR NOT DETECTED; HUMAN METAPNEUMOVIRUS NOT DETECTED; INFLUENZA A- RESP PCR PANEL NOT DETECTED; INFLUENZA B - RESP PCR PANEL NOT DETECTED; M. PNEUMONIAE- RESP PCR PANEL NOT DETECTED; PARAINFLUENZA VIRUS 1 NOT DETECTED; PARAINFLUENZA VIRUS 2 NOT DETECTED; PARAINFLUENZA VIRUS 3 NOT DETECTED; PARAINFLUENZA VIRUS 4 NOT DETECTED; RHINOVIRUS/ENTEROVIRUS NOT DETECTED; RSV- RESP PCR PANEL NOT DETECTED; SARS-CoV-2 -RESP PCR PANEL NOT DETECTED
[2023-02-06] MEDS: oxyCODONE 5 MG TABLET PO PRN ×2 (03:17→13:21)
[2023-02-06 05:26] LABS: EOSINOPHILS % (AUTO) 0.1 %; HGB - HEMOGLOBIN 9.3 g/dL (14.0-18.0)
[2023-02-06 05:30] LABS: BASOPHILS % (AUTO) 0.7 %; HCT - HEMATOCRIT 28.2 % (42.0-52.0); LYMPHOCYTES % (AUTO) 4.9 %; MEAN CORPUSCULAR HEMOGLOBIN 32.5 pg (27.0-31.0); MEAN CORPUSCULAR VOLUME 98.6 fL (80.0-94.0); MONOCYTES % (AUTO) 7.2 %; NEUTROPHILS % (AUTO) 86.9 %; PLT - PLATELET COUNT 300 10^3/uL (130-450); RED BLOOD COUNT 2.86 10^6/uL (4.70-6.10); RED CELL DISTRIBUTION WIDTH 14.8 % (12.0-15.0); WHITE BLOOD COUNT 8.5 x10^3/uL (4.8-10.8)
[2023-02-06 05:32] LABS: ABNORMAL LYMPHS % (MANUAL) 0 %
[2023-02-06 05:34] LABS: CALCIUM 8.8 mg/dL (8.5-10.3); CREATININE 0.6 mg/dL (0.6-1.2); POTASSIUM 3.5 mmol/L (3.5-5.0)
[2023-02-06] MEDS ORDERED: oxyCODONE 5 MG TABLET PO STA ×2 (05:44→14:01)
[2023-02-06 05:48] LABS: BAND NEUTROPHILS % (MANUAL) 37 %; DIFFERENTIAL COMMENT MANUAL DIFFERENTIAL; LYMPHOCYTES # (MANUAL) 1.3 10^3/uL (1.5-3.5); LYMPHOCYTES % (MANUAL) 15 %; MONOCYTES # (MANUAL) 0.1 10^3/uL (0.0-1.0); NEUTROPHILS # (MANUAL) 7.1 10^3/uL (1.5-6.6); PLATELET ESTIMATE, MANUAL NORMAL (130-450,000) (NORMAL); RBC MORPHOLOGY (MULTIPLE) NORMAL APPEARANCE (NORMAL)
[2023-02-06] MEDS ORDERED: VANCOMYCIN 1 GM VIAL ONE (05:53)
[2023-02-06] MEDS: CEFEPIME 2 GM in SODIUM CHLORIDE 0.9% MINIBAG 100 ML IV SCH ×3 (06:02→20:52)
[2023-02-06] MEDS: VANCOMYCIN INJ 1.25 GM in SODIUM CHLORIDE 0.9% 250 ML IV SCH ×2 (06:02→18:26)
[2023-02-06] MEDS: PANTOPRAZOLE 40 MG TABLET PO SCH (06:02)
[2023-02-06] MEDS: ENOXAPARIN 40 MG/0.4 ML SYRINGE SUBQ SCH (08:58)
[2023-02-06] MEDS ORDERED: ASPIRIN CHEW 81 MG TABLET PO SCH (09:00)
[2023-02-06] MEDS ORDERED: FINASTERIDE 5 MG TABLET PO SCH (09:00)
[2023-02-06] MEDS ORDERED: PHENYTOIN CHEW 50 MG TABLET PO SCH ×2 (09:00→21:00)
[2023-02-06] MEDS ORDERED: GADOBUTROL 7.5 MMOL/7.5 ML VIAL ONE (11:30)
--- NOTE | 2023-02-06 11:54 | ED Physician Documentation ---
ED Addendum - Addendum Addendum: 02/06/23 11:51 Patient has continued to board overnight in the emergency department pending bed availability for inpatient admission. Briefly 82-year-old gentleman with a known history of seizure disorder presented yesterday after having some generalized rigors and shakes in the car following chemotherapy. On presentation to the ER was febrile at 1034. A sepsis work-up was undertaken. Blood cultures are still pending. Urinalysis not consistent with infection. CT of the abdomen showed some inflammation around the bladder as well as the rectosigmoid colon. This is not unexpected given the finding of cancer as well as chemoradiation. He was started on broad-spectrum antibiotics vancomycin and cefepime. Source of the fever is not yet clear given the otherwise negative x- ray imaging yesterday. He is currently in MRI as surveillance is being undertaken to rule out mets to the brain. He did have some difficulty with word finding yesterday afternoon that seems to have resolved today. This case was also briefly discussed yesterday with the patient's oncologist at [facility] Dr. Chiu. MRI results of the brain are not yet known. However should it find evidence of metastasis, this would not change our medical plan to admit to the hospital umless there were findings significant for mass effect or shift. The patient still needs to complete treatment for fever in the setting of cancer and chemotherapy. I did speak with our hospitalist Dr. Mancini who graciously agrees to bring the patient in for further evaluation and management of his fever in the setting of chemotherapy due to an unknown source though given the presence of a port this could be a potential source of infection. In addition to that he could be seeding from his belly given chemoradiation and findings of inflammation within the belly and rectal sigmoid colon.
[2023-02-06] MEDS ORDERED: GADOBUTROL 7.5 MMOL/7.5 ML VIAL IVP ONE (12:38)
[2023-02-06] MEDS: ACETAMINOPHEN 500 MG TABLET PO PRN ×2 (13:21→21:17)
[2023-02-06] MEDS ORDERED: MAG HYDROX/AL HYDROX/SIMETH 30 ML UDC PO STA (14:01)
--- NOTE | 2023-02-06 14:30 | MRI Report ---
PROCEDURE: MRI brain with and without contrast INDICATIONS: Evaluate for metastatic cancer. History of bladde CONTRAST: GADAVIST 7.5 ML TECHNIQUE: Noncontrast axial T1 spin echo, axial T2 fast spin echo, sagittal and axial FLAIR, coronal T2 fast sp in echo, axial gradient echo, axial diffusion and ADC through the brain. After the administration of contrast, axial and coronal T1 spin echo with fat saturation through the brain. COMPARISON: 06/28/2013 MRI brain FINDINGS: Image quality: Excellent. CSF spaces: Basal cisterns are patent. No extra-axial fluid collections. Ventricles are normal in size and shape. Brain: In the posterior aspect of the left cingulate gyrus, there is focal cord gliosis and old blood products with blooming on susceptibility weighted sequences. No evidence of vascular flow void or ma ss effect. No acute hemorrhage present. Otherwise, atrophy is present without significant chronic ischemic change. Diffusion sequence unremar kable without acute infarct. No abnormal enhancement throughout the exam. Skull and face: Calvarial marrow is normal in signal. Orbits appear normal. Sinuses: Sinuses and mastoids appear clear. IMPRESSION: Generalized atrophy and without focal enhancement suggest metastatic disease. Focal gliosis and old blood products in the left posterior cingulate gyrus consistent with prior hemo rrhagic injury, stable from 06/28/2013 Reviewed by: Silverio Orta MD on 02/06/2023 1:29 PM FRANCINE Approved by: Silverio Orta MD on 02/06/2023 1:29 PM AKGALILEA Station ID: [id number]
[2023-02-06] MEDS ORDERED: oxyCODONE 5 MG TABLET PO PRN ×2 (14:55→20:08)
--- NOTE | 2023-02-06 15:11 | HISTORY & PHYSICAL EXAMINATION ---
Chief Complaint - Chief Complaint Chief Complaint: Sepsis, cystitis, colitis, febrile on chemotherapy History of Present Illness - Admitted From Admitted From:: [facility] ED - History Obtained From Records Reviewed: ED notes History obtained from: patient and ED provider - History of Present Illness HPI Comment/Other: Patient is an 82-year-old male currently undergoing chemo and radiation for treatment of bladder cancer who presented to the emergency department on 02/05 for evaluation of seizure-like activity. He did receive chemotherapy that day at [facility] and as his was driving him home, he began to have some shaking and rigors of his arms which she and the patient thought were concerning for seizures. However he never had any lapse in consciousness, remained alert and conversant. On presentation to the emergency department, he was noted to be febrile up to 103.4. He did have some mild tachycardia with a resting heart rate of 108. No hypotension was noted. Given the history of bladder cancer as well as recent chemotherapy, appropriate sepsis labs were obtained including blood cultures x2, urinalysis, CBC, electrolytes and lactate. The CBC per the ER provider's interpretation showed no acute worrisome findings. No leukopenia or leukocytosis. He did have a very mild anemia with a hemoglobin of 10.4. Patient's reports a remote history of thrombocytopenia but his platelet count today is normal. His blood chemistry was essentially unremarkable. Lactate was negative. UA may be indicative of early cystitis given the large amount of WBCs but there is rare bacteria. A culture is pending. Given lack of acidosis or hypotension patient does not present as having septic shock His requested we obtain a Dilantin level as she states that he likes to run in the "higher ranges." Dilantin level was 10.1. He was administered 500 mg of Dilantin IV here in the ER. Clinically, the ED provider was not suspicious that the patient had seizure activity as reported by the as he remained alert and conversant throughout. He was most likely experiencing rigors and chills in the setting of fever. Subsequently, we did obtain a CT of the head which showed no acute intracranial findings. This patient does have an indwelling right upper chest port. Chest x-ray showed no findings of pneumonia and the patient was started on broad-spectrum antibiotics with cefepime and Vanco. The ED provider spoke with his oncologist at [facility], Dr. Chiu. He was in agreement that the patient should be admitted to the hospital for further evaluation of the fever in the setting of chemotherapy. He requested that an MRI of the head be completed with and without contrast to rule out any mets to the brain, as on presentation the patient did have some stuttering and word finding difficulty but no focal neurodeficits otherwise. The patient spent the night in the ED because there were no beds available . He was in a private isolation room on telemetry monitoring with respiratory and neutropenic precautions (though he is not neutropenic). Med reconciliation was completed. Urinalysis not consistent with infection. CT of the abdomen showed some inflammation around the bladder as well as the rectosigmoid colon. This is not unexpected given the finding of cancer as well as chemoradiation. He was started on broad-spectrum antibiotics: vancomycin and cefepime. Source of the fever is not yet clear given the otherwise negative x-ray imaging yesterday. 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 On admission, blood cultures are still pending. He has back pain from lying on hard surfaces during his radiation treatment yesterday and during the MRI today. He also has abdominal pain from chemotherapy, which he states is difficult to differentiate from his bladder pain at times. He has no word finding diffi culties today. No nausea, vomiting, or headache. He can't remember when his last seizure was, but states it was several years ago. He does however bite his tongue during sleep about once weekly. History - Past Medical History Cardiovascular: reports: Hypertension Respiratory: reports: Sleep apnea Neuro: reports: Seizure disorder Endocrine/Autoimmune: reports: None GI: reports: GERD, Pancreatitis : reports: Kidney stones, Other (Bladder cancer) HEENT: reports: Chronic hearing loss, Other Psych: reports: Anxiety Musculoskeletal: reports: Osteoarthritis, Chronic back pain, Other Derm: reports: Psoriasis MRSA Hx?: Yes - Past Surgical History General: reports: Cholecystectomy, Appendectomy, Bowel surgery, Splenectomy Ortho: reports: Hip replacement, Arthroscopic surgery HEENT: reports: Tonsil/Adenoidectomy, Other - Family & Social History Family History Comment/Other: Patient's father had Parkinson's disease. His mother from an unspecified cancer. His brother from pancreatic cancer. He has 3 children who are healthy. Social History Notes: He lives at home with his . He is independent of activities of daily living. He gets around using a walker. His physical activity has steadily decreased over the past years due to osteoarthritis. He does not consume tobacco or alcohol products. He uses CBD/THC products. - POLST Patient has POLST: No POLST Status: Full Code Meds/Allgy - Home Medications Home Medications: Ambulatory Orders Medication Instructions Recorded Confirmed Aspirin EC [Ecotrin] 81 mg PO DAILY 06/27/13 02/05/23 Vit A,C & E/Lutein/Minerals 1 each PO DAILY 06/27/13 02/05/23 [Ocuvite with Lutein Tablet] Cyanocobalamin (Vitamin B-12) 1,000 mcg PO DAILY 02/09/14 02/05/23 [Vitamin B-12] Cholecalciferol (Vitamin D3) 2,000 units ORAL DAILY 05/03/14 02/05/23 [Vitamin D3] levOCARNitine tartrate 250 mg PO BID 05/09/18 02/05/23 [l-Carnitine] polyethylene glycoL 3350 [Miralax] 17 gm PO DAILY 01/06/19 02/05/23 Finasteride 5 mg PO DAILY PM 02/21/19 02/05/23 Mirabegron [Myrbetriq] 50 mg PO DAILY PM 02/21/19 02/05/23 Famotidine [Pepcid] 20 mg PO BID 07/28/19 02/05/23 Phenytoin Infatab [Dilantin 50 mg PO QPM 07/28/19 02/05/23 Infatab] Phenytoin [Dilantin] 100 mg PO BID 07/28/19 02/05/23 [place]-3/Dha/Epa/Fish Oil [Fish Oil 1,000 mg PO DAILY 11/29/21 02/05/23 1,000 mg Softgel] Oxycodone Myristate [Xtampza ER] 13.5 mg PO TID 11/29/21 02/05/23 oxyCODONE [Roxicodone] 5 mg PO TID PRN 12/01/21 02/05/23 - Allergies Allergies/Adverse Reactions: Allergies Allergy/AdvReac Type Severity Reaction Status Date / Time amitriptyline [Amitriptyline] Allergy Intermediate Hallucinati Verified 02/05/23 17:03 ons heparinoids Allergy Intermediate Rash Verified 02/05/23 17:03 baclofen Allergy Unknown Verified 02/05/23 17:03 celecoxib Allergy Unknown Verified 02/05/23 17:03 diphenhydramine Allergy paradoxical Verified 02/05/23 17:03 reaction divalproex sodium Allergy pancreatiti Verified 02/05/23 17:03 [From Depakote] s glucosamine Allergy Unknown Verified 02/05/23 17:03 naproxen Allergy GI pain Verified 02/05/23 17:03 oxcarbazepine Allergy Unknown Verified 02/05/23 17:03 [From Trileptal] pregabalin [From Lyrica] Allergy pancreatiti Verified 02/05/23 17:03 s Review of Systems - Constitutional Constitutional: reports: Poor appetite - Ears, Nose & Throat Ears, Nose & Throat: reports: Hearing loss, Hearing aids (Not currently wearing them but he will have them 5/5) - Gastrointestinal Gastrointestinal: reports: Abdominal pain, Diarrhea (related to chemo) - Genitourinary Genitourinary: reports: Dysuria - Musculoskeletal Musculoskeletal: reports: Muscle pain, Back pain, Joint pain, Other (arthritic pain) - Neurological Neurological: reports: Seizures - All Other Systems All Other Systems: reports: Reviewed and negative Prior Level of Functionality: Independent, but uses walker. Lives at home with and dog Exam - Vital Signs Reviewed Vital Signs: Yes Vital Signs: Vital Signs x48h Temp Pulse Resp BP Pulse Ox 02/06/23 14:30 63 18 119/61 99 02/06/23 13:00 36.0 C L 68 18 102/84 H 97 02/06/23 11:30 66 15 109/56 L 94 02/06/23 11:00 63 12 97/49 L 97 02/06/23 10:20 36.1 C L 66 16 111/53 L 93 02/06/23 09:06 69 13 121/57 L 94 02/06/23 08:47 72 16 122/55 L 96 - Physical Exam General Appearance: positive: No acute distress, Alert Eyes Bilateral: positive: Normal inspection, EOMI ENT: negative: Purulent nasal drainage Neck: positive: Nml inspection, Thyroid nml, No JVD, Trachea midline. negative: Stiff neck, Tracheal deviation Respiratory: positive: Chest non-tender, No respiratory distress, Breath sounds nml Cardiovascular: positive: Regular rate & rhythm Abdomen: positive: Tenderness (lower abdomen). negative: Abnml bowel sounds Skin: positive: Color nml, No rash, Warm, Dry. negative: Diaphoresis, Pallor Extremities: positive: Non-tender, No pedal edema, Other (arthritis changes in hands). negative: Calf tenderness Neurologic/Psychiatric: positive: Oriented x3, Mood/affect nml. negative: Slurred/abnml speech Sepsis Event Note (H) - Sepsis Criteria Sepsis Criteria: Recorded Temperature greater than 38.3C or Less than 36C, Recorded Heart Rate greater than 90 bpm, WBC count greater than 10% bands, ADULT SCHOOL TEACHER: altered consciousness (unrelated to primary neuro pathology) Conclusion/Plan - Problem List (1) Sepsis Conclusion/Plan: Patient meets many criteria for sepsis including: tachycardia, fever, AMS, and 37% neutrophil bands Patient was started on IV cefepime in the ED on 02/05. IV Vancomycin was added on 02/06 As of 02/06, tachycardia and fever have resolved. Plan: Check CBC daily Continue IV antibiotics monitor vitals Await blood culture results Qualifiers: Sepsis acute organ dysfunction status: without acute organ dysfunction (2) Cystitis Conclusion/Plan: Patient is currently undergoing treatment for bladder cancer with [facility]. He sees Dr. Navin Chiu, who was alerted of the patient's condition on 02/05. Patient does report pain with urination and CT abdomen found cystitis. Urinalysis showed blood and leukocyte esterase, but no nitrites. Abd CT from 02/05 found: findings which may indicate cystitis. Thickening of the sigmoid colon within the anterior pelvis, consistent with infection, ischemia, or inflammation. Urinary bladder masses, as before. Plan: Continue IV antibiotics Continue home med myrbetriq (3) Colitis Conclusion/Plan: Patient was started on IV cefepime (02/05) and IV vanco (02/06) in the ED. After admission, flagyl was added for anaerobe coverage due to colitis and diarrhea. Plan: Continue antibiotics Will plan on a pureed diet for easier digestion. (4) Bladder cancer Conclusion/Plan: Patient has been undergoing treatment for bladder cancer consisting of chemoth erapy and radiation therapy with Dr. Navin Chiu at [facility]. His most recent treatment date was 02/05 with chemotherapy and radiation. He has a chemo port. Dr. Chiu spoke with the ED provider on 02/05 to let him know the patient's status Patient reports that he has a lot of bladder pain and lower abdominal discomfort. He requested pain meds in a long acting form. Per Dr. Chiu, the patient had an MRI to check for brain mets on 02/06. No mets were found. Plan: Begin Dilaudid ER Discuss case with Dr. Chiu as needed, phone: [phone] Qualifiers: Bladder location: unspecified site Qualified Code(s): C67.9 - Malignant neoplasm of bladder, unspecified (5) Seizure disorder Conclusion/Plan: Patient has a history of seizures. On 02/05, he experienced an episode of shakiness, which he thought was a seizure. 500 mg IV dilantin was given in the ED, however, no seizure has been confirmed. Plan: Resume home meds phenytoin - Lab Results Fish Bones: 02/06/23 05:20 02/06/23 05:20 - Diagnostic Imaging Results Diagnostic Imaging Results Comments: CT abd/pel w: Findings may indicate cystitis in the appropriate clinical laboratory setting. Thickening of the sigmoid colon within the anterior pelvis, consider infection, ischemia or inflammation. Urinary bladder masses as before. CT head w/o: No acute intracranial abnormality. MRI: focal gliosis and old blood products in the left posterior cingulate gyrus consistent with prior hemorrhagic injury, stable from 06/28/2013. Generalized atrophy without focal enhancement suggestive of metastatic disease
[2023-02-06] MEDS: D5NS W/20 MEQ KCL 1,000 ML IV SCH (15:46)
[2023-02-06] MEDS: SODIUM CHLORIDE FLUSH 0.9% 10 ML SYRINGE IVP SCH (15:46)
[2023-02-06] MEDS ORDERED: HYDROmorphone 2 MG TABLET PO PRN (20:07)
[2023-02-06] MEDS: FINASTERIDE 5 MG TABLET PO SCH (21:15)
[2023-02-06] MEDS: FAMOTIDINE 20 MG TABLET PO SCH (21:17)
[2023-02-06] MEDS: metroNIDAZOLE 500 MG/100 ML 500 MG/100 ML BAG IV SCH (21:33)
[2023-02-07] MEDS: SODIUM CHLORIDE FLUSH 0.9% 10 ML SYRINGE IVP SCH ×3 (01:40→17:12)
[2023-02-07] MEDS: ACETAMINOPHEN 500 MG TABLET PO PRN (03:42)
[2023-02-07] MEDS: MAG HYDROX/AL HYDROX/SIMETH 30 ML UDC PO PRN ×2 (03:42→10:50)
[2023-02-07] MEDS ORDERED: METOPROLOL 5 MG/5 ML VIAL IVP ONE (05:14)
[2023-02-07 05:28] LABS: ALBUMIN 2.7 g/dL (3.2-5.5); CALCIUM 8.5 mg/dL (8.5-10.3); CREATININE 0.6 mg/dL (0.6-1.2); MAGNESIUM 1.9 mg/dL (1.7-2.8); PHOSPHORUS 1.8 mg/dL (2.5-4.6); POTASSIUM 4.6 mmol/L (3.5-5.0)
[2023-02-07] MEDS: oxyCODONE 5 MG TABLET PO PRN ×4 (05:34→23:04)
[2023-02-07] MEDS ORDERED: MORPHINE 2 MG/ML CARPUJECT ONE (05:58)
[2023-02-07] MEDS ORDERED: PROPOFOL 200 MG/20 ML VIAL IVP ONE (05:58)
[2023-02-07] MEDS ORDERED: SODIUM CHLORIDE 0.9% 1,000 ML IV ONE (06:01)
[2023-02-07] MEDS: metroNIDAZOLE 500 MG/100 ML 500 MG/100 ML BAG IV SCH ×3 (06:50→21:55)
[2023-02-07] MEDS: D5NS W/20 MEQ KCL 1,000 ML IV SCH ×2 (08:07→23:04)
--- NOTE | 2023-02-07 08:44 | MISCELLANEOUS PROVIDER NOTE ---
Miscellaneous Provider Note - - Note: I am the ED physician on duty today (02/07/23) and am asked by [facility] floor nursing staff to evaluate this inpatient. He is inpatient for evaluation/treatment of fever and possible sepsis. At 4:18 AM today, he is noted by nursing staff to have gone into tachydysrhythmia; This was noted on telemetry and rhythm strips indicate that, at 4:18 AM, he went from a normal sinus rhythm into a rapid tachydysrhythmia with heart rate in the 160s-170s. An EKG was performed at 4:47 AM, reviewed by me, and this shows rapid atrial fibrillation, heart rate of 174, normal axis, right bundle branch block. I was told there was some difficulty in contacting the telehealth physician on duty. By the time I got to the floor to evaluate this patient, the telehealth doctor had entered an order for 5 mg IV metoprolol. Immediately prior to administration of metoprolol, I note that the systolic bloo d pressure is 111 and I did confirm with the nurse that the metoprolol order is appropriate and can be given. The patient is in no acute/apparent distress but his heart rate remains 160s to 170s when I first arrived. Shortly after the metoprolol was given, his pulse remained irregular with a heart rate of 150s to 160s. Unfortunately, his systolic blood pressure dropped into the 80s after the metoprolol, and for successive readings it remained in the 80s systolic (diastolic on these readings was 50s to 60s). I discussed with patient treatment options and my recommendation was for cardioversion. The patient is awake, alert, oriented x3. Risks and benefits of this procedure are discussed with patient and he agrees with/consents to conscious sedation and electrocardioversion. He is given 4 mg morphine IV.I then administered 20 mg of IV propofol followed by 10 mg IV propofol, for total of 30 mg intravenous propofol. This resulted in excellent sedation. Synchronized cardioversion, 100 J, resulted in conversion to normal sinus rhythm. His blood pressure and heart rate immediately normalized with cardioversion. I stayed in the room until the patient came more awake and alert. I contacted the patient's (Simi) at home over the following to update her on the patient's condition. Postprocedure EKG (6:06 AM) shows normal sinus rhythm 73 bpm, normal axis, right bundle branch block, no ST elevations nor depressions. There is a PAC noted on this EKG. Procedures - Procedural sedation Sedation prep: Informed consent, ASA 3 - severe disease Sedation Medications: propofol Mallampati classification: II Patient status during sedation: Responds to tactile, Vitals remained stable, Maintained airway, Recovered uneventfully Sedation recovery: Recovered uneventfully Time in sedation (Minutes): 20 - Cardioversion - Major #1 Time of attempt: 06:00 Indication: Tachyarrhythmia, Hypotension Risks, benefits, alternatives explained to: Pt Prep: IV, O2, manager of marketing, Pulse ox Meds: Morphine CS via: Pads, AP approach Sync: 100j (synchronized) Post cardioversion rhythm: NSR Complications: Other (none) Performed by: TYLER WRIGHT
[2023-02-07] MEDS ORDERED: DHA PO SCH (09:00)
[2023-02-07] MEDS ORDERED: CHOLECALCIFEROL 2000 UNIT ORAL SCH (09:00)
[2023-02-07] MEDS ORDERED: OMEGA PO SCH (09:00)
[2023-02-07] MEDS ORDERED: [UNRECOGNIZED DRUG - OTHER] PO SCH (09:00)
[2023-02-07] MEDS ORDERED: EPA PO SCH (09:00)
[2023-02-07] MEDS ORDERED: CYANOCOBALAMIN 1000 MCG PO SCH (09:00)
[2023-02-07] MEDS ORDERED: FISH OIL PO SCH (09:00)
[2023-02-07] MEDS: CYANOCOBALAMIN 500 MCG TABLET PO SCH (09:28)
[2023-02-07] MEDS: CHOLECALCIFEROL 25 MCG TABLET PO SCH (09:28)
[2023-02-07] MEDS: SOLIFENACIN SUCCINATE 5 MG TABLET PO SCH (09:29)
[2023-02-07] MEDS: FAMOTIDINE 20 MG TABLET PO SCH ×2 (09:29→20:07)
[2023-02-07] MEDS: PANTOPRAZOLE 40 MG TABLET PO SCH (09:29)
[2023-02-07] MEDS: ASPIRIN EC 81 MG TABLET PO SCH (09:29)
[2023-02-07] MEDS: CEFEPIME 2 GM in SODIUM CHLORIDE 0.9% MINIBAG 100 ML IV SCH ×2 (09:53→20:07)
[2023-02-07] MEDS: ENOXAPARIN 40 MG/0.4 ML SYRINGE SUBQ SCH (10:27)
[2023-02-07] MEDS: VANCOMYCIN INJ 1.25 GM in SODIUM CHLORIDE 0.9% 250 ML IV SCH (10:29)
[2023-02-07] MEDS: ONDANSETRON 4 MG/2 ML VIAL IVP PRN (10:56)
[2023-02-07] MEDS ORDERED: LORazepam 0.5 MG TABLET PO PRN (11:21)
[2023-02-07] MEDS: polyethylene glycoL 3350 17 GM PACKET PO SCH (12:01)
[2023-02-07] MEDS: OMEGA-3 ACID ETHYL ESTERS 1 GM CAPSULE PO SCH (12:19)
--- NOTE | 2023-02-07 12:38 | PHARMACY PROGRESS NOTE ---
- Best Possible Medication History Admit Date and Time: 02/06/23 9618 Processed by: Pharmacy Medication History completed: Yes Patient Interview: Pt unable to participate Secondary Source(s): Spouse/Significant other ( WAS ABLE TO GIVE DETAILED MEDICATION HX and PT's CONDITION, WHICH I REPORTED TO DR Oconnor VIA SBAR.), Insurance records As the person ultimately responsible for medication therapy, providers are able to order a medication from an existing home medication list in [facility] via the "Reconcile Routine" prior to Confirmation of that medication by student support counselor. Such practice is discouraged except when the physician, in their clinical judgment, deems that a medical need exists for a medication without regard to previous use.
--- NOTE | 2023-02-07 12:45 | PROVIDER PROGRESS NOTE ---
Subjective - Subjective Pt reports feeling: Worse (He is somnolent, the first time I saw him was 1 and half hours after conscious sedation (which was given for cardioversion), the next time I saw him was in mid afternoon and he was napping) Objective - Vital Signs/Intake & Output Reviewed Vital Signs: Yes Vital Signs: Vital Signs Temp Pulse Resp BP Pulse Ox 02/07/23 12:00 37.2 C 62 11 L 116/65 99 02/07/23 11:00 66 17 120/60 99 02/07/23 10:00 71 17 106/86 H 100 02/07/23 09:00 62 15 128/77 96 Intake & Output: Intake & Output 02/04/23 02/05/23 02/06/23 02/07/23 23:59 23:59 23:59 23:59 Intake Total 2210 1700 1351.663 Output Total 900 175 Balance 2210 800 1176.663 - Objective General Appearance: positive: Lethargic Eyes Bilateral: positive: No lid inflammation ENT: positive: ENT inspection nml, No signs of dehydration Neck: positive: Nml inspection, No JVD Respiratory: positive: No respiratory distress, Breath sounds nml Cardiovascular: positive: Regular rate & rhythm, No murmur Abdomen: positive: Non-tender, Nml bowel sounds, No distention Skin: positive: Warm, Dry, Pallor Extremities: positive: Non-tender, No pedal edema Neurologic/Psychiatric: positive: Other (Lethargic) - Lab Results Fish Bones: 02/08/23 04:54 02/08/23 04:54 Other Labs: Lab Results x24hrs 02/07/23 02/07/23 02/07/23 Range/Units 08:12 05:10 05:10 Sodium 134 L (135-145) mmol/L Potassium 4.6 (3.5-5.0) mmol/L Chloride 107 (101-111) mmol/L Carbon Dioxide 20 L (21-32) mmol/L Anion Gap 7.0 (6-13) BUN 18 (6-20) mg/dL Creatinine 0.6 (0.6-1.2) mg/dL Estimated GFR (MDRD) 129 (>89) Glucose 176 H (70-100) mg/dL Calcium 8.5 (8.5-10.3) mg/dL Phosphorus 1.8 L (2.5-4.6) mg/dL Magnesium 1.9 (1.7-2.8) mg/dL Troponin I High Sens 59.2 H* 14.3 (2.3-19.7) ng/L Albumin 2.7 L (3.2-5.5) g/dL Sepsis Event Note (H) - Sepsis Criteria Sepsis Criteria: Recorded Temperature greater than 38.3C or Less than 36C, Recorded Heart Rate greater than 90 bpm, WBC count greater than 10% bands, AQUATICS SPECIALIST: altered consciousness (unrelated to primary neuro pathology) Assessment/Plan - Problem List (1) Atrial fibrillation with RVR Impression: The patient went into new onset of rapid A-fib at about 0300 overnight, it was first paroxysmal then sustained. He had a small drop in blood pressure with this but had no symptoms. Metoprolol 5 mg IV x1 was ordered by the telemedicine doctor. HR remained elevated at 160-170. Shortly after that, he underwent successful synchronized cardioversion, done by the ED provider Dr. Silva. He converted into sinus rhythm after 1 shock of 100J. As I am seeing him this morning, about 1-1/2 hours after cardioversion, he is obtunded, does not wake up to touch or to his name (After receiving conscious sedation meds for the cardioversion). He is wearing supplemental O2 and has s aturations of 95%. Plan: We will transfer the patient to the ICU to monitor for hypopnea and respiratory distress, following conscious sedation given 1-1/2 hours ago We will cycle troponins to rule out an MT as the cause for this new A-fib Check TSH to rule out hyperthyroidism as the cause of this new A-fib Obtain an Echo to rule out structural heart disease I updated the at bedside today on his entire hospital course and the plan 2) Elevated troponins Troponins are risin>> 59 An EKG was done this morning to look for ischemic changes, after the cardioversion. I interpreted that EKG. EKG shows normal sinus rhythm, rate 65, right bundle branch block and no ischemic ST or T wave changes are seen. Since the last EKG when he was in sinus rhythm yesterday, lateral ST depressions in V5 and V6 seen then, are no longer seen. Plan: Continue with daily aspirin We will start the patient on beta-fatimah, both for suppressing tachycardia and for post MT management Check cholesterol and treat per guidelines Monitor in the ICU today (3) Sepsis Patient met many criteria for sepsis including: tachycardia, fever, AMS, and 37% neutrophil bands. After cardioversion (see above), he is no longer tachycardic. There has been no fever. His mental status improved after admission from the ER yesterday however he is obtunded now after receiving sedatives for the cardioversion. His percent bandemia has (all labs were reviewed) Patient was started on IV cefepime in the ED on 02/05. IV Vancomycin was added on 02/06 Plan: Follow CBC w/ diff daily Continue empiric IV antibiotics Await blood culture results to tailor antibx Qualifiers: Sepsis acute organ dysfunction status: without acute organ dysfunction (2) Cystitis Conclusion/Plan: Patient is currently undergoing treatment for bladder cancer with [facility]. He sees Dr. Navin Chiu, who was alerted of the patient's condition on 02/05. Patient does report pain with urination and CT abdomen found cystitis. Urinalysis showed blood and leukocyte esterase, but no nitrites. Abd CT from 02/05 found: findings which may indicate cystitis. Thickening of the sigmoid colon within the anterior pelvis, consistent with infection, ischemia, or inflammation. Urinary bladder masses, as before. Plan: Continue IV antibiotics Continue home med myrbetriq (3) Colitis Conclusion/Plan: Patient was started on IV cefepime (02/05) and IV vanco dose given (02/06) in the ED. Then after admission, iv Flagyl was added for anaerobe coverage due to colitis and diarrhea. Plan: Continue IV cefepime and IV Flagyl antibiotics. Vanco will be stopped. Will order a pureed diet for easier digestion/bowel rest, advance as tolerated. (4) Bladder cancer Conclusion/Plan: Patient has been undergoing treatment for bladder cancer consisting of chemotherapy and radiation therapy with Dr. Navin Chiu at [facility]. His most recent treatment date was 02/05 with chemotherapy and radiation. He has a chemo port. Dr. Chiu spoke with the ED provider on 02/05 to let him know the patient's status Patient reports that he has a lot of bladder pain and lower abdominal discomfort. He requested pain meds in a long acting form. Per Dr. Chiu, the patient had an MRI done here to check for brain mets on 02/06. No mets were found. Plan: Begin Dilaudid ER Discuss case with Dr. Chiu as needed, phone: [phone] Qualifiers: Bladder location: unspecified site Qualified Code(s): C67.9 - Malignant neoplasm of bladder, unspecified (5) Seizure disorder Conclusion/Plan: Patient has a history of seizures. On 02/05, he experienced an episode of shakiness, which the thought was a seizure. 500 mg IV dilantin was given in the ED, however, no seizure has been confirmed. Plan: Resume home meds phenytoin As per the and discussion with pharmacy, his Dilantin level needs to be about 15, not 10. 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 His allergy list states that he is allergic to "heparinoid's". Plan: The patient is on daily baby aspirin which will be continued as his stroke prophylaxis for the new onset A-fib. Unfortunately we will not be able to give DOACs or therapeutic dose of Lovenox or Heparin, because of this ITP and brain bleed history (7) Brain bleed As in #6
[2023-02-07] MEDS: NEUTRA-PHOS 250 MG TABLET PO SCH ×2 (13:22→15:32)
[2023-02-07] MEDS ORDERED: METOPROLOL SUCCINATE 25 MG TABLET PO ONE (18:00)
[2023-02-07] MEDS: FINASTERIDE 5 MG TABLET PO SCH (20:07)
[2023-02-07] MEDS: PHENYTOIN ER 100 MG CAPSULE PO SCH (20:08)
[2023-02-07] MEDS: LEVOCARNITINE TARTRATE 250 MG PO SCH (20:13)
[2023-02-07] MEDS ORDERED: PHENYTOIN CHEW 50 MG TABLET PO SCH (21:00)
[2023-02-07] MEDS ORDERED: ENOXAPARIN 40 MG/0.4 ML SYRINGE SUBQ SCH (21:00)
[2023-02-07] MEDS: ACETAMINOPHEN 325 MG TABLET PO PRN (23:04)
[2023-02-08] MEDS: SODIUM CHLORIDE FLUSH 0.9% 10 ML SYRINGE IVP SCH ×3 (01:43→15:22)
[2023-02-08] MEDS: ACETAMINOPHEN 325 MG TABLET PO PRN ×4 (04:19→23:58)
[2023-02-08] MEDS: oxyCODONE 5 MG TABLET PO PRN ×6 (04:20→23:50)
[2023-02-08] MEDS: metroNIDAZOLE 500 MG/100 ML 500 MG/100 ML BAG IV SCH ×3 (04:24→21:24)
[2023-02-08 04:59] LABS: CALCIUM, IONIZED 1.23 mmol/L (1.15-1.33); VBG PH 7.406 (7.31-7.41)
[2023-02-08 05:10] LABS: POTASSIUM 3.9 mmol/L (3.5-5.0)
[2023-02-08] MEDS ORDERED: POTASSIUM PHOSPHATE 15 MMOL in SODIUM CHLORIDE 0.9% 250 ML IV ONE (08:00)
[2023-02-08 08:35] LABS: BASOPHILS % (AUTO) 0.4 %; EOSINOPHILS # (AUTO) 0.1 10^3/uL (0.0-0.7); EOSINOPHILS % (AUTO) 1.4 %; HCT - HEMATOCRIT 24.6 % (42.0-52.0); HGB - HEMOGLOBIN 8.3 g/dL (14.0-18.0); LYMPHOCYTES # (AUTO) 0.4 10^3/uL (1.5-3.5); MEAN CORPUSCULAR HEMOGLOBIN 33.2 pg (27.0-31.0); MEAN CORPUSCULAR HGB CONC 33.7 g/dL (32.0-36.0); MEAN CORPUSCULAR VOLUME 98.4 fL (80.0-94.0); MEAN PLATELET VOLUME 10.1 fL (7.4-11.4); MONOCYTES # (AUTO) 0.3 10^3/uL (0.0-1.0); MONOCYTES % (AUTO) 4.9 %; NEUTROPHILS # (AUTO) 4.4 10^3/uL (1.5-6.6); NEUTROPHILS % (AUTO) 84.5 %; PLT - PLATELET COUNT 336 10^3/uL (130-450); RED CELL DISTRIBUTION WIDTH 15.4 % (12.0-15.0); WHITE BLOOD COUNT 5.2 x10^3/uL (4.8-10.8)
[2023-02-08 08:42] LABS: CALCIUM 8.6 mg/dL (8.5-10.3); CREATININE 0.7 mg/dL (0.6-1.2); POTASSIUM 3.9 mmol/L (3.5-5.0)
[2023-02-08] MEDS ORDERED: polyethylene glycoL 3350 17 GM PACKET PO SCH (09:00)
[2023-02-08] MEDS: OMEGA-3 ACID ETHYL ESTERS 1 GM CAPSULE PO SCH (09:01)
[2023-02-08] MEDS: LEVOCARNITINE TARTRATE 250 MG PO SCH ×2 (09:02→20:38)
[2023-02-08] MEDS: CHOLECALCIFEROL 25 MCG TABLET PO SCH (09:04)
--- NOTE | 2023-02-08 09:05 | PROVIDER PROGRESS NOTE ---
Hospitalist Cross-cover Note - Cross-Cover Note Cross-Cover Note: ECHOCARDIOGRAM REPORT 02/08/23 Indication: New onset A-fib (Since we have no domestic technician here until 02/11/2023, as a Board-certified [employer]er, credentialed to do and interpret echoes, I did a limited bedside Echo on this patient) Image quality: Good Findings: Mildly dilated left atrium and right atrium. Normal aortic root diameter Normal LV size and wall thickness, normal LVEF, 60%, mild diastolic dysfunction present. Right ventricle mildly to moderately dilated. Normal RV contractility. Mitral, tricuspid and pulmonic valves appear structurally normal. Aortic valve probably structurally normal Only a limited Doppler exam was done and this showed mild to moderate tricuspid regurgitation. PA pressure could not be calculated No pericardial effusion Summary: LVH with normal EF, mild diastolic dysfunction present Dilated RV with normal RV function. Mild to moderate tricuspid regurgitation present (This was an incomplete, limited Doppler exam of the heart)
[2023-02-08] MEDS: CYANOCOBALAMIN 500 MCG TABLET PO SCH (09:06)
[2023-02-08] MEDS: SOLIFENACIN SUCCINATE 5 MG TABLET PO SCH (09:06)
[2023-02-08] MEDS: METOPROLOL SUCCINATE 25 MG TABLET PO SCH (09:08)
[2023-02-08] MEDS: FAMOTIDINE 20 MG TABLET PO SCH ×2 (09:09→20:38)
[2023-02-08] MEDS: ASPIRIN EC 81 MG TABLET PO SCH (09:09)
[2023-02-08] MEDS: CEFEPIME 2 GM in SODIUM CHLORIDE 0.9% MINIBAG 100 ML IV SCH ×2 (09:10→20:37)
[2023-02-08] MEDS: polyethylene glycoL 3350 17 GM PACKET PO SCH (09:11)
--- NOTE | 2023-02-08 09:17 | PROVIDER PROGRESS NOTE ---
Subjective - Subjective Pt reports feeling: Improved (He is much more alert, he has more energy. He had no palpitations with yesterday's A-fib and remains comfortable today. His pelvic pain is also improved since admission.) Objective - Vital Signs/Intake & Output Reviewed Vital Signs: Yes Vital Signs: Vital Signs Temp Pulse Resp BP Pulse Ox 02/08/23 08:39 36.7 C 02/08/23 08:00 62 16 106/64 97 02/08/23 07:00 67 13 120/75 98 02/08/23 06:00 65 22 120/57 L 96 Intake & Output: Intake & Output 02/05/23 02/06/23 02/07/23 02/08/23 23:59 23:59 23:59 23:59 Intake Total 2210 1700 3750.000 350 Output Total 900 275 450 Balance 2210 800 3475.000 -100 - Objective General Appearance: positive: No acute distress, Alert Eyes Bilateral: positive: Normal inspection, EOMI ENT: positive: ENT inspection nml, No signs of dehydration Neck: positive: Nml inspection, No JVD Respiratory: positive: No respiratory distress, Breath sounds nml Cardiovascular: positive: Regular rate & rhythm, No murmur Abdomen: positive: Non-tender, Nml bowel sounds, No distention Skin: positive: Warm, Dry, Pallor Extremities: positive: Non-tender, No pedal edema Neurologic/Psychiatric: positive: Oriented x3, Motor nml - Lab Results Fish Bones: 02/08/23 04:54 02/08/23 04:54 Other Labs: Lab Results x24hrs 02/08/23 02/08/23 02/08/23 Range/Units 04:54 04:54 04:54 WBC 5.2 (4.8-10.8) x10^3/uL RBC 2.50 L (4.70-6.10) 10^6/uL Hgb 8.3 L (14.0-18.0) g/dL Hct 24.6 L (42.0-52.0) % MCV 98.4 H (80.0-94.0) fL MCH 33.2 H (27.0-31.0) pg MCHC 33.7 (32.0-36.0) g/dL RDW 15.4 H (12.0-15.0) % Plt Count 336 (130-450) 10^3/uL MPV 10.1 (7.4-11.4) fL Neut # (Auto) 4.4 (1.5-6.6) 10^3/uL Lymph # (Auto) 0.4 L (1.5-3.5) 10^3/uL [place] # (Auto) 0.3 (0.0-1.0) 10^3/uL Eos # (Auto) 0.1 (0.0-0.7) 10^3/uL Baso # (Auto) 0.0 (0.0-0.1) 10^3/uL Absolute Nucleated RBC 0.00 x10^3/uL Nucleated RBC % 0.0 /100WBC VBG pH 7.406 (7.31-7.41) Ionized Calcium 1.23 (1.15-1.33) mmol/L Sodium 138 (135-145) mmol/L Potassium 3.9 (3.5-5.0) mmol/L Chloride 109 (101-111) mmol/L Carbon Dioxide 23 (21-32) mmol/L Anion Gap 6.0 (6-13) BUN 18 (6-20) mg/dL Creatinine 0.7 (0.6-1.2) mg/dL Estimated GFR (MDRD) 108 (>89) Glucose 132 H (70-100) mg/dL Calcium 8.6 (8.5-10.3) mg/dL Phosphorus (2.5-4.6) mg/dL Magnesium 2.0 (1.7-2.8) mg/dL Troponin I High Sens TSH (0.34-5.60) uIU/mL Nasal Screen MRSA (PCR) (NEGATIVE) 02/08/23 02/07/23 02/07/23 Range/Units 04:54 14:49 14:49 WBC (4.8-10.8) x10^3/uL RBC (4.70-6.10) 10^6/uL Hgb (14.0-18.0) g/dL Hct (42.0-52.0) % MCV (80.0-94.0) fL MCH (27.0-31.0) pg MCHC (32.0-36.0) g/dL RDW (12.0-15.0) % Plt Count (130-450) 10^3/uL MPV (7.4-11.4) fL Neut # (Auto) (1.5-6.6) 10^3/uL Lymph # (Auto) (1.5-3.5) 10^3/uL [place] # (Auto) (0.0-1.0) 10^3/uL Eos # (Auto) (0.0-0.7) 10^3/uL Baso # (Auto) (0.0-0.1) 10^3/uL Absolute Nucleated RBC x10^3/uL Nucleated RBC % /100WBC VBG pH (7.31-7.41) Ionized Calcium (1.15-1.33) mmol/L Sodium (135-145) mmol/L Potassium 3.9 (3.5-5.0) mmol/L Chloride (101-111) mmol/L Carbon Dioxide (21-32) mmol/L Anion Gap (6-13) BUN (6-20) mg/dL Creatinine (0.6-1.2) mg/dL Estimated GFR (MDRD) (>89) Glucose (70-100) mg/dL Calcium (8.5-10.3) mg/dL Phosphorus 2.0 L (2.5-4.6) mg/dL Magnesium 2.0 (1.7-2.8) mg/dL Troponin I High Sens Cancelled TSH 0.69 (0.34-5.60) uIU/mL Nasal Screen MRSA (PCR) (NEGATIVE) 02/07/23 Range/Units 09:50 WBC (4.8-10.8) x10^3/uL RBC (4.70-6.10) 10^6/uL Hgb (14.0-18.0) g/dL Hct (42.0-52.0) % MCV (80.0-94.0) fL MCH (27.0-31.0) pg MCHC (32.0-36.0) g/dL RDW (12.0-15.0) % Plt Count (130-450) 10^3/uL MPV (7.4-11.4) fL Neut # (Auto) (1.5-6.6) 10^3/uL Lymph # (Auto) (1.5-3.5) 10^3/uL [place] # (Auto) (0.0-1.0) 10^3/uL Eos # (Auto) (0.0-0.7) 10^3/uL Baso # (Auto) (0.0-0.1) 10^3/uL Absolute Nucleated RBC x10^3/uL Nucleated RBC % /100WBC VBG pH (7.31-7.41) Ionized Calcium (1.15-1.33) mmol/L Sodium (135-145) mmol/L Potassium (3.5-5.0) mmol/L Chloride (101-111) mmol/L Carbon Dioxide (21-32) mmol/L Anion Gap (6-13) BUN (6-20) mg/dL Creatinine (0.6-1.2) mg/dL Estimated GFR (MDRD) (>89) Glucose (70-100) mg/dL Calcium (8.5-10.3) mg/dL Phosphorus (2.5-4.6) mg/dL Magnesium (1.7-2.8) mg/dL Troponin I High Sens TSH (0.34-5.60) uIU/mL Nasal Screen MRSA (PCR) NEGATIVE (NEGATIVE) Sepsis Event Note (H) - Sepsis Criteria Sepsis Criteria: Recorded Temperature greater than 38.3C or Less than 36C, Recorded Heart Rate greater than 90 bpm, WBC count greater than 10% bands, NET SORTER: altered consciousness (unrelated to primary neuro pathology) Assessment/Plan - Problem List (1) New onset a-fib Impression: On 02/07/23 yesterday, pt went into new onset of rapid A-fib. He had no CP or SOB. HR remained elevated at 160-170. He underwent successful synchronized cardioversion, done by the ED provider Dr. Silva at 0600. He converted into sinus rhythm after 1 shock of 100J. He was then moved to the ICU, I have monitored him there for 24 hours. I started him yesterday on Toprol XL 12.5 mg daily. He has had no further A-fib. His troponins did double but were very low (All labs were reviewed, his troponins went from 14 to 59 to 29). Therefore this was probably a troponin "leak" from cardioversion TSH was checked to rule out hyperthyroidism as the cause of this new A-fib. His TSH was normal. Today 02/08 I performed a limited bedside Echo to rule out structural heart disease (since we have no satellite installation technician here until Friday, today is Friday). It does show cor pulmonale. I asked the patient whether he has any pulmonary disease to explain the cor pulmonale and he does say he has RISSA and is not on CPAP because he cannot tolerate it. I suspect that is the cause of the cor pulmonale. Plan: We will transfer the patient out of the ICU, remain on hospital monitor Assess his heart rate with activity, he may ambulate Continue the Toprol I updated the again today on his entire hospital course and the plan 2) Elevated troponins Troponins were risin>> 59>> 29 An EKG was done, after the cardioversion. It showed no ischemic ST or T wave changes Plan: Continue with daily aspirin Continue Toprol for suppressing tachycardia Check cholesterol and treat per guidelines He can be moved out of the ICU today, remain on hospital monitor 3) Cor Pulmonale Today 02/08 I performed a limited bedside Echo to rule out structural heart dise ase. It does show cor pulmonale. I asked the patient whether he has any pulmonary disease to explain the cor pulmonale and he does say he has RISSA and is not on CPAP because he cannot tolerate it. Suspect that is the cause of the cor pulmonale. Plan: I will discuss with patient and , better management of his RISSA 4) Cystitis Conclusion/Plan: Patient is currently undergoing treatment for bladder cancer with [facility]. He sees Dr. Navin Chiu, who was alerted of the patient's condition on 02/05. Patient does report pain with urination and CT abdomen found cystitis. Urinalysis showed blood and leukocyte esterase, but no nitrites. Abd CT from 02/05 found: Bladder changes which may indicate cystitis. Thickening of the sigmoid colon within the anterior pelvis, consistent with infection, ischemia, or inflammation. Urinary bladder masses, as before. Plan: Continue empiric IV antibiotics Continue home med [id number] If all cx are negative then after final cx results, the empiric antibiotics will be stopped 5) Colitis Conclusion/Plan: Patient was started on IV cefepime (02/05) and IV vanco dose given (02/06) in the ED. Then after admission, iv Flagyl was added for anaerobe coverage due to colitis and diarrhea. Plan: Continue IV cefepime and IV Flagyl antibiotics. Vanco will be stopped. Will order a pureed diet for easier digestion/bowel rest, advance as tolerated. If all cx are negative then after final cx results, the empiric antibiotics will be stopped 6) Bladder cancer Conclusion/Plan: Patient has been undergoing treatment for bladder cancer consisting of chemot herapy and radiation therapy with Dr. Navin Chiu at [facility]. His most recent treatment date was 02/05 with chemotherapy and radiation. He has a chemo port. Dr. Chiu spoke with the ED provider on 02/05 to let him know the patient's status Patient reports that he has a lot of bladder pain and lower abdominal discomfort. He requested pain meds in a long acting form. Per Dr. Chiu, the patient had an MRI done here to check for brain mets on 02/06. No mets were found. Plan: Begin Dilaudid ER I have also renewed his oxycodone 20 mg 3 times daily as needed, and the oxycodone 5 mg 3 times daily as needed. He wants 2 different doses to have available, depending on level of his pain throughout the day Discuss case with Dr. Chiu as needed, phone: [phone] Qualifiers: Bladder location: unspecified site Qualified Code(s): C67.9 - Malignant neoplasm of bladder, unspecified 7) Seizure disorder Conclusion/Plan: Patient has a history of seizures. On 02/05, he experienced an episode of shakines s, which the thought was a seizure. 500 mg IV dilantin was given in the ED, however, no seizure has been confirmed. I suspect he had shaking chills. Plan: As per the and discussion with pharmacy, his Dilantin level needs to be about 15, not 10. Will monitor his Dilantin level intermittent Resume home med phenytoin. 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 His allergy list states that he is allergic to "heparinoid's". Plan: The patient is on daily baby aspirin which will be continued as his stroke prophylaxis for the new onset A-fib. Unfortunately we will not be able to give DOACs for the Afib (stroke prevention) or therapeutic dose of Lovenox or Heparin, because of this ITP and brain bleed history 9) Brain bleed As in #6 10) Sepsis RESOLVED Patient met many criteria for sepsis including: tachycardia, fever, AMS, and 37% neutrophil bands. After cardioversion (see above), he was no longer tachycardic. There has been no fever. His mental status improved after admission from the ER however he is obtunded now after receiving sedatives for the cardioversion. His percent bandemia has improved (all labs were reviewed) Patient was started on IV cefepime in the ED on 02/05. IV Vancomycin was added on 02/06 IV Flagyl added 02/06 also. Plan: Follow CBC w/ diff daily Continue empiric IV antibiotics Await blood culture results to tailor antibx If all cx are negative then after 3 to 4 days total, antibiotics will be stopped Qualifiers: Sepsis acute organ dysfunction status: without acute organ dysfunction
[2023-02-08] MEDS: ONDANSETRON 4 MG/2 ML VIAL IVP PRN ×3 (09:46→17:57)
[2023-02-08] MEDS: SODIUM CHLORIDE FLUSH 0.9% 10 ML SYRINGE IVP PRN (09:47)
[2023-02-08] MEDS: D5NS W/20 MEQ KCL 1,000 ML IV SCH (14:41)
[2023-02-08] MEDS: FINASTERIDE 5 MG TABLET PO SCH (20:38)
[2023-02-08] MEDS: PHENYTOIN ER 100 MG CAPSULE PO SCH (20:38)
[2023-02-09] MEDS: SODIUM CHLORIDE FLUSH 0.9% 10 ML SYRINGE IVP SCH ×3 (00:33→17:19)
[2023-02-09] MEDS: oxyCODONE 5 MG TABLET PO PRN ×5 (02:01→20:02)
[2023-02-09] MEDS: D5NS W/20 MEQ KCL 1,000 ML IV SCH ×2 (04:08→07:35)
[2023-02-09] MEDS: ACETAMINOPHEN 325 MG TABLET PO PRN ×5 (04:39→23:34)
[2023-02-09] MEDS: metroNIDAZOLE 500 MG/100 ML 500 MG/100 ML BAG IV SCH (04:39)
[2023-02-09 04:58] LABS: BASOPHILS % (AUTO) 1.3 %; EOSINOPHILS % (AUTO) 1.8 %; HCT - HEMATOCRIT 25.3 % (42.0-52.0); HGB - HEMOGLOBIN 8.5 g/dL (14.0-18.0); LYMPHOCYTES % (AUTO) 7.7 %; MEAN CORPUSCULAR HEMOGLOBIN 32.7 pg (27.0-31.0); MEAN CORPUSCULAR HGB CONC 33.6 g/dL (32.0-36.0); MEAN CORPUSCULAR VOLUME 97.3 fL (80.0-94.0); MEAN PLATELET VOLUME 9.1 fL (7.4-11.4); MONOCYTES % (AUTO) 9.8 %; NEUTROPHILS % (AUTO) 77.9 %; PLT - PLATELET COUNT 370 10^3/uL (130-450); RED CELL DISTRIBUTION WIDTH 14.9 % (12.0-15.0); WHITE BLOOD COUNT 5.4 x10^3/uL (4.8-10.8)
[2023-02-09 05:04] LABS: ABNORMAL LYMPHS % (MANUAL) 0 %
[2023-02-09 05:07] LABS: CALCIUM 8.6 mg/dL (8.5-10.3); CREATININE 0.5 mg/dL (0.6-1.2); POTASSIUM 3.9 mmol/L (3.5-5.0)
[2023-02-09 05:21] LABS: CHOL/HDL RATIO 2.5 (<5.0); CHOLESTEROL 130 mg/dL; HDL CHOLESTEROL 51 mg/dL; LDL CHOLESTEROL,CALCULATED 70 mg/dL; LDL/HDL RATIO 1.4 (<3.6); TRIGLYCERIDES 46 mg/dL; VLDL CHOLESTEROL 9 mg/dL
[2023-02-09 05:25] LABS: BAND NEUTROPHILS % (MANUAL) 10 %; EOSINOPHILS # (MANUAL) 0.1 10^3/uL (0-0.7); LYMPHOCYTES # (MANUAL) 0.3 10^3/uL (1.5-3.5); LYMPHOCYTES % (MANUAL) 5 %; MONOCYTES # (MANUAL) 0.2 10^3/uL (0.0-1.0); NEUTROPHILS # (MANUAL) 4.9 10^3/uL (1.5-6.6); PLATELET ESTIMATE, MANUAL NORMAL (130-450,000) (NORMAL); RBC MORPHOLOGY (MULTIPLE) NORMAL APPEARANCE (NORMAL)
[2023-02-09 05:26] LABS: DIFFERENTIAL COMMENT MANUAL DIFFERENTIAL
[2023-02-09] MEDS: ONDANSETRON 4 MG/2 ML VIAL IVP PRN (07:31)
[2023-02-09] MEDS: METOPROLOL SUCCINATE 25 MG TABLET PO SCH (08:13)
[2023-02-09] MEDS: OMEGA-3 ACID ETHYL ESTERS 1 GM CAPSULE PO SCH (08:14)
[2023-02-09] MEDS: ASPIRIN EC 81 MG TABLET PO SCH (08:14)
[2023-02-09] MEDS: SOLIFENACIN SUCCINATE 5 MG TABLET PO SCH (08:14)
[2023-02-09] MEDS: LEVOCARNITINE TARTRATE 250 MG PO SCH ×2 (08:14→20:17)
[2023-02-09] MEDS: CYANOCOBALAMIN 500 MCG TABLET PO SCH (08:14)
[2023-02-09] MEDS: CHOLECALCIFEROL 25 MCG TABLET PO SCH (08:14)
[2023-02-09] MEDS: FAMOTIDINE 20 MG TABLET PO SCH ×2 (08:14→20:12)
[2023-02-09] MEDS: polyethylene glycoL 3350 17 GM PACKET PO SCH (08:22)
[2023-02-09] MEDS: SACCHAROMYCES BOULARDII 250 MG CAPSULE PO SCH ×2 (08:56→17:19)
[2023-02-09] MEDS: CIPROFLOXACIN 250 MG TABLET PO SCH ×2 (08:56→20:18)
[2023-02-09] MEDS: SODIUM CHLORIDE FLUSH 0.9% 10 ML SYRINGE IVP PRN (10:33)
[2023-02-09] MEDS: metroNIDAZOLE 250 MG TABLET PO SCH ×2 (11:53→17:19)
--- NOTE | 2023-02-09 11:58 | PROVIDER PROGRESS NOTE ---
Assessment/Plan - Problem List (1) Cystitis Assessment/Plan: Patient is currently undergoing treatment for bladder cancer with [facility]. He sees Dr. Navin Chiu, who was alerted of the patient's condition on 02/05. Patient does report pain with urination and CT abdomen found cystitis. Urinalysis showed blood and leukocyte esterase, but no nitrites. Abd CT from 02/05 found: Bladder changes which may indicate cystitis. Thickening of the sigmoid colon within the anterior pelvis, consistent with infection, ischemia, or inflammation. Urinary bladder masses, as before. He has been on empiric IV antibiotic IV cefepime (02/05) and IV vanco dose given (02/06) in the ED. Then after admission, iv Flagyl started. All labs were reviewed reviewed: his urine culture had no growth. Blood cultures are negative to date. We continued his home med myrbetriq Plan: This was probably inflammation of the bladder and not infection. We will stop his empiric iv antibiotics. I updated his today at bedside on all his diagnoses and plan 2) Colitis Conclusion/Plan: Patient was started on IV cefepime (02/05) and IV vanco dose given (02/06) in the ED, then Vanco stopped. Then after admission, iv Flagyl was added for anaerobe coverage due to colitis and diarrhea. Diet has been pureed diet for easier digestion/bowel rest He has had a BM at least once daily and it is described as loose but semiformed, yesterday there was blood in it Plan: If there is liquidy stool, will send off stool for C. difficile. Remain on the pured diet We will add po Simethicone since part of his pain is from excessive gas Will stop empiric IV cefepime and IV Flagyl antibiotics today. Will transition to empiric oral Cipro and oral Flagyl today Monitor WBC and clinical status for the next day and if no worse, then anticipate discharge tomorrow. I discussed the plan with the pt and he agrees, 3) Bladder cancer Conclusion/Plan: Patient has been undergoing treatment for bladder cancer consisting of chemotherapy and radiation therapy with Dr. Navin Chiu at [facility]. His most recent treatment date was 02/05 with chemotherapy and radiation. He has a chemo po rt. Dr. Chiu spoke with the ED provider on 02/05 to let him know the patient's status. As requested by Dr. Chiu, the patient had an MRI done here to check for brain mets on 02/06. No mets were found. Patient reports that he has a lot of bladder pain and lower abdominal discomfort. He requested pain meds in a long acting form. We continued his home med myrbetriq. Today the patient disclosed to me that he thinks he does not want to go through any more chemo because of how weak and it made him and how much pain it causes in his pelvis. I told him that decision should be entirely between him and his O ncologist. Plan: Continue with narcotic pain meds prn, using his oxycodone 20 mg 3 times daily as needed, and the oxycodone 5 mg 3 times daily as needed. He wants 2 different doses to have available, depending on level of his pain throughout the day. He also asked for a long-acting narcotic and I will order OxyContin 10 mg BID prn pain Discuss case with Dr. Chiu as needed, phone: [phone] Qualifiers: Bladder location: unspecified site Qualified Code(s): C67.9 - Malignant neoplasm of bladder, unspecified 4) Seizure disorder Conclusion/Plan: Patient has a history of seizures. On 02/05, he experienced an episode of shakiness, which the thought was a seizure. 500 mg IV dilantin was given in the ED, however, no seizure has been confirmed. It was likely shaking chills. Plan: As per the and discussion with pharmacy, his Dilantin blood level needs to be about 15, not 10. Will monitor his Dilantin level intermittent Continue home med phenytoin 300 mg daily 5) Cor Pulmonale On 02/08 I performed a limited bedside Echo to rule out structural heart disease (because of having new onset Afib). The Echo does show cor pulmonale. I asked the patient whether he has any pulmonary disease to explain the cor pulmonale and he does say he has RISSA and is not on CPAP because he cannot tolerate it. Suspect that is the cause of the cor pulmonale. 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 His allergy list states that he is allergic to "heparinoid's". Plan: The patient is on daily baby aspirin which will be continued as his stroke prophylaxis for the new onset A-fib. Unfortunately we will not be able to give DOACs for the Afib (stroke prevention) or therapeutic dose of Lovenox or Heparin, because of this ITP and brain bleed history 7) Brain bleed As in #6 8) Sepsis RESOLVED Patient met many criteria for sepsis including: tachycardia, fever, AMS, and 37% neutrophil bands. There has been no fever since admission. His mental status improved after admission. His percent bandemia has improved (all labs were reviewed) Patient was started on IV cefepime in the ED on 02/05. IV Vancomycin was added on 02/06 IV Flagyl added 02/06 also. Plan: Follow CBC w/ diff daily Continue antibiotics Await blood culture results to tailor antibx Qualifiers: Sepsis acute organ dysfunction status: without acute organ dysfunction 9) New onset a-fib Impression: On 02/07/23, pt went into new onset of rapid A-fib. He had no CP or SOB. HR remained elevated at 160-170. He underwent successful synchronized cardioversio n, done by the ED provider Dr. Silva at 0600. He converted into sinus rhythm after 1 shock of 100J. He was then moved to the ICU, I monitored him there for 24 hours, and started Toprol XL 12.5 mg daily. He has had no further A-fib. His troponins did double but were very low (All labs were reviewed) His troponins went from 14 to 59 to 29. Therefore this was probably a troponin "leak" from cardioversion TSH was checked to rule out hyperthyroidism as the cause of this new A-fib. His TSH was normal. On 02/08 I performed a limited bedside Echo to rule out structural heart disease (since we have no tech brazer tester here until Friday, and that day was Sat). The Echo did show cor pulmonale. I asked the patient whether he has any pulmonary disease to explain the cor pulmonale and he did say he has RISSA and is not on CPAP because he cannot tolerate it. I suspect that is the cause of the cor pulmonale. Plan: Remain on night monitor and assess his heart rate with activity, he may ambulate Continue the Toprol 10) Elevated troponins Troponins were risin>> 59>> 29 An EKG was done, after the cardioversion. It showed no ischemic ST or T wave ch anges. We checked his cholesterol and he has good results, no new meds were added. Plan: Continue with daily aspirin Continue Toprol for suppressing tachycardia - Current Meds Current Meds: Current Medications Generic Name Dose Route Start Last Admin Trade Name Marquisq PRN Reason Stop Dose Admin Acetaminophen 650 mg 02/06/23 14:55 02/09/23 11:39 Acetaminophen 325 Mg Tablet PO 650 mg Q4HR PRN Administration Pain 1 to 4, or Fever Al Hydroxide/Mg Hydroxide 30 ml 02/07/23 00:54 02/07/23 10:50 Mag Hydrox/Al Hydrox/Simeth 30 Ml Udc PO 30 ml Q4HR PRN Administration INDIGESTION Aspirin 81 mg 02/07/23 09:00 02/09/23 08:14 Aspirin Ec 81 Mg Tablet PO 81 mg DAILY CRISTIANO Administration Cholecalciferol 50 mcg 02/07/23 09:00 02/09/23 08:14 Cholecalciferol 25 Mcg Tablet PO 50 mcg DAILY CRISTIANO Administration Ciprofloxacin 250 mg 02/09/23 09:00 02/09/23 08:56 Ciprofloxacin 250 Mg Tablet PO 250 mg BID CRISTIANO Administration Cyanocobalamin 1,000 mcg 02/07/23 09:00 02/09/23 08:14 Cyanocobalamin 500 Mcg Tablet PO 1,000 mcg DAILY CRISTIANO Administration Famotidine 20 mg 02/06/23 21:00 02/09/23 08:14 Famotidine 20 Mg Tablet PO 20 mg BID CRISTIANO Administration Finasteride 5 mg 02/06/23 21:00 02/08/23 20:38 Finasteride 5 Mg Tablet PO 5 mg HS CRISTIANO Administration Heparin Sodium (Beef Lung) 30 - 50 unit 02/09/23 10:07 02/09/23 10:33 Heparin Flush 50 Units/5 Ml Syringe IVP 50 unit PRN PRN Administration Port Protocol (<24 hours) Metoprolol Succinate 12.5 mg 02/08/23 09:00 02/09/23 08:13 Metoprolol Succinate 25 Mg Tablet PO 12.5 mg DAILY CRISTIANO Administration Zydbf-2-Pysi Ethyl Esters 1 gm 02/07/23 09:00 02/09/23 08:14 [place]-3 Acid Ethyl Esters 1 Gm Capsule PO 1 gm DAILY CRISTIANO Administration Ondansetron HCl 4 mg 02/06/23 14:55 02/09/23 07:31 Ondansetron 4 Mg/2 Ml Vial IVP 4 mg Q6HR PRN Administration Nausea / Vomiting Oxycodone HCl 20 mg 02/07/23 13:30 02/09/23 11:39 Oxycodone 5 Mg Tablet PO 20 mg TID PRN Administration PAIN 5-7 Oxycodone HCl 5 mg 02/07/23 18:18 02/09/23 08:14 Oxycodone 5 Mg Tablet PO 5 mg TID PRN Administration Moderate Pain (Level 4-6) Patient Own Med ( 1 each 02/07/23 21:00 02/09/23 08:14 Levocarnitine PO 1 each Tartrate [L- BID CRISTIANO Administration Carnitine] 250 Mg Capsule) Phenytoin Sodium 300 mg 02/07/23 21:00 02/08/23 20:38 Phenytoin Er 100 Mg Capsule PO 300 mg HS CRISTIANO Administration Polyethylene Glycol 17 gm 02/07/23 11:00 02/09/23 08:22 Polyethylene Glycol 3350 17 Gm Packet PO Not Given DAILY CRISTIANO Saccharomyces Boulardii 250 mg 02/09/23 08:11 02/09/23 08:56 Saccharomyces Boulardii 250 Mg Capsule PO 250 mg BIDWM CRISTIANO Administration Sodium Chloride 10 ml 02/06/23 14:55 02/09/23 10:33 Sodium Chloride Flush 0.9% 10 Ml Syringe IVP 10 ml PRN PRN Administration NEEDED PER PROVIDER ORDERS Sodium Chloride 10 ml 02/06/23 17:00 02/09/23 08:19 Sodium Chloride Flush 0.9% 10 Ml Syringe IVP 10 ml 0100,0900,1700 CRISTIANO Administration Solifenacin 10 mg 02/07/23 09:00 02/09/23 08:14 Solifenacin Succinate 5 Mg Tablet PO 10 mg DAILY CRISTIANO Administration - Lab Result Fish Bone Diagrams: 02/09/23 04:53 02/09/23 04:53 - Additional Planning My Orders: My Active Orders 02/09/23 C DIFF PCR Stat 02/09/23 08:11 Saccharomyces Boulardii [Florastor] 250 mg PO BIDWM 02/09/23 09:00 Ciprofloxacin [Cipro] 250 mg PO BID 02/09/23 10:07 Heparin Flush [Heparin Sodium (Beef Lung)] 300 - 500 unit IVP PRN PRN Heparin Flush [Heparin Sodium] 30 - 50 unit IVP PRN PRN 02/09/23 12:00 metroNIDAZOLE [Flagyl] 500 mg PO TIDWM Subjective - Subjective Patient Reports: Feeling Better (Has more energy, still has some pelvic pain, overall it is better. He has had BMs every day, they are partially formed, yesterday there was blood in one of them which he gets after chemo and radiation.) Objective Vital Signs: Vital Signs - 24 hr 02/08/23 02/08/23 02/08/23 11:54 13:00 15:48 Temperature 36.4 C L 36.5 C 36.3 C L Heart Rate [ Brachial] Heart Rate [ 62 67 65 Monitoring electrodes] Respiratory 16 16 18 Rate Blood Pressure [Left Brachial artery] Blood Pressure 128/67 100/64 119/71 [Right Brachial artery] O2 Saturation 97 94 98 02/08/23 02/08/23 02/08/23 18:05 19:10 23:49 Temperature 36.5 C 36.7 C Heart Rate [ 73 Brachial] Heart Rate [ 71 73 Monitoring electrodes] Respiratory 16 16 Rate Blood Pressure 144/63 H [Left Brachial artery] Blood Pressure 128/64 143/66 H [Right Brachial artery] O2 Saturation 99 96 02/09/23 02/09/23 03:11 08:16 Temperature 36.6 C 36.4 C L Heart Rate [ Brachial] Heart Rate [ 64 66 Monitoring electrodes] Respiratory 18 18 Rate Blood Pressure [Left Brachial artery] Blood Pressure 131/64 H 140/57 H [Right Brachial artery] O2 Saturation 99 97 Oxygen O2 Source Room air I&O (Last 24 Hrs): Intake and Output Totals x24h 02/07/23 02/08/23 02/09/23 23:59 23:59 23:59 Intake Total 3750.000 3305.0 1998. Output Total 275 1475 775 Balance 3475.000 1830.0 1224.83 General: Alert, Oriented x3, Other (Male pattern baldness) HEENT: Atraumatic, EOMI, Mucous membr. moist/pink Neck: Supple, No JVD Neuro: Alert, Non Focal Cardiovascular: Regular rate, No murmurs Respiratory: No respiratory distress Abdomen: Soft Extremities: No clubbing, No edema, No tenderness/swelling - Results Results: Laboratory Results WBC 5.4 x10^3/uL (4.8-10.8) 02/09/23 04:53 RBC 2.60 10^6/uL (4.70-6.10) L 02/09/23 04:53 Hgb 8.5 g/dL (14.0-18.0) L 02/09/23 04:53 Hct 25.3 % (42.0-52.0) L 02/09/23 04:53 MCV 97.3 fL (80.0-94.0) H 02/09/23 04:53 MCH 32.7 pg (27.0-31.0) H 02/09/23 04:53 MCHC 33.6 g/dL (32.0-36.0) 02/09/23 04:53 RDW 14.9 % (12.0-15.0) 02/09/23 04:53 Plt Count 370 10^3/uL (130-450) 02/09/23 04:53 MPV 9.1 fL (7.4-11.4) 02/09/23 04:53 Neut # (Auto) Not Reportable 02/09/23 04:53 Lymph # (Auto) Not Reportable 02/09/23 04:53 [place] # (Auto) Not Reportable 02/09/23 04:53 Eos # (Auto) Not Reportable 02/09/23 04:53 Baso # (Auto) Not Reportable 02/09/23 04:53 Absolute Nucleated RBC Not Reportable 02/09/23 04:53 Total Counted 100 02/09/23 04:53 Band Neuts % (Manual) 10 % (0-10) 02/09/23 04:53 Abnorm Lymph % (Manual) 0 % 02/09/23 04:53 Nucleated RBC % Not Reportable 02/09/23 04:53 Neutrophils # (Manual) 4.9 10^3/uL (1.5-6.6) 02/09/23 04:53 Lymphocytes # (Manual) 0.3 10^3/uL (1.5-3.5) L 02/09/23 04:53 Monocytes # (Manual) 0.2 10^3/uL (0.0-1.0) 02/09/23 04:53 Eosinophils # (Manual) 0.1 10^3/uL (0-0.7) 02/09/23 04:53 Basophils # (Manual) 0.0 10^3/uL (0-0.1) 02/09/23 04:53 Differential Comment MANUAL DIFFERENTIAL 02/09/23 04:53 Platelet Estimate NORMAL (130-450,000) (NORMAL) 02/09/23 04:53 RBC Morph Micro Appear NORMAL APPEARANCE (NORMAL) 02/09/23 04:53 PT 12.7 secs (9.9-12.6) H 02/05/23 17:17 INR 1.1 (0.8-1.2) 02/05/23 17:17 VBG pH 7.406 (7.31-7.41) 02/08/23 04:54 Ionized Calcium 1.23 mmol/L (1.15-1.33) 02/08/23 04:54 Sodium 137 mmol/L (135-145) 02/09/23 04:53 Potassium 3.9 mmol/L (3.5-5.0) 02/09/23 04:53 Chloride 109 mmol/L (101-111) 02/09/23 04:53 Carbon Dioxide 24 mmol/L (21-32) 02/09/23 04:53 Anion Gap 4.0 (6-13) L 02/09/23 04:53 BUN 15 mg/dL (6-20) 02/09/23 04:53 Creatinine 0.5 mg/dL (0.6-1.2) L 02/09/23 04:53 Estimated GFR (MDRD) 159 (>89) 02/09/23 04:53 Glucose 125 mg/dL (70-100) H 02/09/23 04:53 Lactic Acid 1.3 mmol/L (0.5-2.2) 02/05/23 17:17 Calcium 8.6 mg/dL (8.5-10.3) 02/09/23 04:53 Phosphorus 2.0 mg/dL (2.5-4.6) L 02/08/23 04:54 Magnesium 2.0 mg/dL (1.7-2.8) 02/08/23 04:54 Magnesium 2.0 mg/dL (1.7-2.8) 02/08/23 04:54 Total Bilirubin 0.7 mg/dL (0.2-1.0) 02/05/23 17:17 AST 38 IU/L (10-42) 02/05/23 17:17 ALT 50 IU/L (10-60) 02/05/23 17:17 Alkaline Phosphatase 125 IU/L (42-121) H 02/05/23 17:17 Troponin I High Sens Cancelled 02/07/23 14:49 Total Protein 6.7 g/dL (6.7-8.2) 02/05/23 17:17 Albumin 2.7 g/dL (3.2-5.5) L 02/07/23 05:10 Globulin 3.2 g/dL (2.1-4.2) 02/05/23 17:17 Albumin/Globulin Ratio 1.1 (1.0-2.2) 02/05/23 17:17 Triglycerides 46 mg/dL (-149) 02/09/23 04:53 Cholesterol 130 mg/dL (-199) 02/09/23 04:53 LDL Cholesterol, Calc 70 mg/dL (-129) 02/09/23 04:53 VLDL Cholesterol 9 mg/dL 02/09/23 04:53 HDL Cholesterol 51 mg/dL (60-) L 02/09/23 04:53 LDL/HDL Ratio 1.4 (<3.6) 02/09/23 04:53 Cholesterol/HDL Ratio 2.5 (<5.0) 02/09/23 04:53 Lipase 23 U/L (22-51) 02/05/23 17:17 TSH 0.69 uIU/mL (0.34-5.60) 02/07/23 14:49 Urine Color BROWN 02/05/23 17:58 Urine Clarity CLOUDY (CLEAR) 02/05/23 17:58 Urine pH 7.0 PH (5.0-7.5) 02/05/23 17:58 Ur Specific [place] 1.020 (1.002-1.030) 02/05/23 17:58 Urine Protein 100 mg/dL (NEGATIVE) H 02/05/23 17:58 Urine Glucose (UA) NEGATIVE mg/dL (NEGATIVE) 02/05/23 17:58 Urine Ketones NEGATIVE mg/dL (NEGATIVE) 02/05/23 17:58 Urine Occult Blood LARGE (NEGATIVE) H 02/05/23 17:58 Urine Nitrite NEGATIVE (NEGATIVE) 02/05/23 17:58 Urine Bilirubin NEGATIVE (NEGATIVE) 02/05/23 17:58 Urine Urobilinogen 0.2 (NORMAL) E.U./dL (NORMAL) 02/05/23 17:58 Ur Leukocyte Esterase SMALL (NEGATIVE) H 02/05/23 17:58 Urine RBC TNTC /HPF (0-5) H 02/05/23 17:58 Urine WBC >25 /HPF (0-3) H 02/05/23 17:58 Ur Squamous Epith Cells RARE Squamous (<= Few) 02/05/23 17:58 Urine Bacteria Rare /HPF (None Seen) 02/05/23 17:58 Nasal Adenovirus (PCR) NOT DETECTED 02/05/23 19:47 Nasal B. parapertussis DNA (PCR) NOT DETECTED 02/05/23 19:47 Nasal Coronavir 229E PCR NOT DETECTED 02/05/23 19:47 Nasal Coronavir HKU1 PCR NOT DETECTED 02/05/23 19:47 Nasal Coronavir NL63 PCR NOT DETECTED 02/05/23 19:47 Nasal Coronavir OC43 PCR NOT DETECTED 02/05/23 19:47 Nasal Enterovir/Rhinovir PCR NOT DETECTED 02/05/23 19:47 Nasal Influenza B PCR NOT DETECTED 02/05/23 19:47 Nasal Influenza A PCR NOT DETECTED 02/05/23 19:47 Nasal Parainfluen 1 PCR NOT DETECTED 02/05/23 19:47 Nasal Parainfluen 2 PCR NOT DETECTED 02/05/23 19:47 Nasal Parainfluen 3 PCR NOT DETECTED 02/05/23 19:47 Nasal Parainfluen 4 PCR NOT DETECTED 02/05/23 19:47 Nasal RSV (PCR) NOT DETECTED 02/05/23 19:47 Nasal Screen MRSA (PCR) NEGATIVE (NEGATIVE) 02/07/23 09:50 Nasal B.pertussis DNA PCR NOT DETECTED 02/05/23 19:47 Nasal C.pneumoniae (PCR) NOT DETECTED 02/05/23 19:47 Paul Human Metapneumo PCR NOT DETECTED 02/05/23 19:47 Nasal M.pneumoniae (PCR) NOT DETECTED 02/05/23 19:47 Nasal SARS-CoV-2 (PCR) NOT DETECTED 02/05/23 19:47 Phenytoin 10.1 ug/mL 02/05/23 17:17 - Procedures Procedures: Procedures SUPPLEMENT L INGUINAL REGION WITH SYNTH SUB, OPEN APPROACH (08/03/19) Sepsis Event Note (H) - Sepsis Criteria Sepsis Criteria: Recorded Temperature greater than 38.3C or Less than 36C, Recorded Heart Rate greater than 90 bpm, WBC count greater than 10% bands, ENGINEERING 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
[2023-02-09] MEDS ORDERED: ALTEPLASE 2 MG VIAL IJ PRN (12:58)
[2023-02-09] MEDS ORDERED: SIMETHICONE 40 MG/0.6 ML 30 ML BOTTLE PO PRN (17:40)
[2023-02-09] MEDS ORDERED: SIMETHICONE CHEW 80 MG TABLET PO ONE (17:47)
[2023-02-09] MEDS: SIMETHICONE CHEW 80 MG TABLET PO PRN (17:49)
[2023-02-09] MEDS ORDERED: SIMETHICONE CHEW 80 MG TABLET PO SCH (18:00)
[2023-02-09] MEDS: FINASTERIDE 5 MG TABLET PO SCH (20:13)
[2023-02-09] MEDS: PHENYTOIN ER 100 MG CAPSULE PO SCH (20:17)
[2023-02-09] MEDS: oxyCODONE ER 10 MG TABLET PO PRN (23:34)
[2023-02-10] MEDS: SODIUM CHLORIDE FLUSH 0.9% 10 ML SYRINGE IVP SCH ×2 (04:20→08:58)
[2023-02-10] MEDS: SIMETHICONE CHEW 80 MG TABLET PO PRN ×2 (04:32→11:51)
[2023-02-10] MEDS: oxyCODONE 5 MG TABLET PO PRN (04:32)
--- NOTE | 2023-02-10 07:48 | Discharge Plan ---
Discharge Plan Problem Reviewed?: Yes Disposition: Home, Self Care Condition: Stable Prescriptions: Ciprofloxacin [Cipro] 250 mg PO BID #8 tab metroNIDAZOLE [Flagyl] 500 mg PO TID #12 tab Simethicone [Mylicon] 80 mg PO QID #60 tab oxyCODONE ER [OxyCONTIN] 10 mg PO BID PRN #16 tab PRN Reason: Pain 5-7 Lactobacillus Acidophilus [Probiotic Acidophilus] 1 each PO DAILY #4 tablet Metoprolol Succinate [Toprol Xl] 12.5 mg PO DAILY #15 tab Diet: Soft (Please eat a low-fat, low fiber, easily digestable diet for the next 2 or 3 days, advance this to your usual diet as tolerated.) Shower Restrictions: No Driving Restrictions: No Weight Bearing: Full Weight Health Concerns: You were hospitalized to treat a fever, and symptoms of abdominal and pelvic pain which were from cystitis and colitis, after a course of chemo and radiation. We treated you with antibiotics for both possible bladder infection and also the colitis. The urinary culture grew no bacteria therefore the cystitis was likely just inflammatory. Your diet was an easily digestible diet while you were here. You are being discharged home to take several more days of oral Cipro and Flagyl antibiotics plus a probiotic. You also had new onset of atrial fibrillation while here. The heart rate was very rapid. You needed to be cardioverted after being sedated. Since that time you are on a new medication called Toprol. You will need further follow-up for A-fib from your PCP or a [employer]. You do need a stress test to make sure you do not have underlying coronary artery blockages, that may have caused this A-fib. Your Echo showed that you have an enlarged right heart which is called Cor Pulmonale. This may be from having sleep apnea that is not being treated with CPAP. You are advised to speak to your PCP about having a new sleep study with new CPAP masks to be tried, which may be more comfortable for you (like a nasal pillow CPAP). Please resume all your other pre-hospital medications and management. I have also prescribed for you several tablets of OxyContin. And I have also prescribed Simethicone (but you can buy Simethicone as an [id number] medicine). All your new prescriptions were electronically sent to your [facility] pharmacy in [place]. Plan of Treatment: As above. Care Goals: Improvement in symptoms and stabilization are the goals. Assessment: The patient and understand and are agreeable with the plan. Additional Instructions or Follow Up instructions: If you have new or worsening symptoms, call your PCP or oncologist for advice, or come to the ER. No Smoking: If you smoke, Please STOP! Call for help. Follow-up with: Bay Cruz MD [Primary Care Provider] -
--- NOTE | 2023-02-10 08:25 | DISCHARGE SUMMARY ---
Discharge Summary Admit Date: 02/06/23 Discharge Date: 02/10/23 Discharging Provider: Dr Chloe Mancini Primary Care Provider: Dr Bay Cruz Condition at Discharge: Stable Discharge Disposition: 01 Home, Self Care - HPI History of Present Illness: Patient is an 82-year-old male currently undergoing chemo and radiation for treatment of bladder cancer who presented to the emergency department on 02/05 for evaluation of seizure-like activity. He did receive chemotherapy that day at [facility] and as his was driving him home, he began to have some shaking and rigors of his arms which she and the patient thought were concerning for seizures. However he never had any lapse in consciousness, remained alert and conversant. On presentation to the emergency department, he was noted to be febrile up to 103.4. He did have some mild tachycardia with a resting heart rate of 108. No hypotension was noted. Given the history of bladder cancer as well as recent chemotherapy, appropriate sepsis labs were obtained including blood cultures x2, urinalysis, CBC, electrolytes and lactate. The CBC per the ER provider's interpretation showed no acute worrisome findings. No leukopenia or leukocytosis. He did have a very mild anemia with a hemoglobin of 10.4. Patient's reports a remote history of thrombocytopenia but his platelet count today is normal. His blood chemistry was essentially unremarkable. Lactate was negative. UA may be indicative of early cystitis given the large amount of WBCs but there is rare bacteria. A culture is pending. Given lack of acidosis or hypotension patient does not present as having septic shock His requested we obtain a Dilantin level as she states that he likes to run in the "higher ranges." Dilantin level was 10.1. He was administered 500 mg of Dilantin IV here in the ER. Clinically, the ED provider was not suspicious that the patient had seizure activity as reported by the as he remained alert and conversant throughout. He was most likely experiencing rigors and chills in the setting of fever. Subsequently, we did obtain a CT of the head which showed no acute intracranial findings. This patient does have an indwelling right upper chest port. Chest x-ray showed no findings of pneumonia and the patient was started on broad-spectrum antibiotics with cefepime and Vanco. The ED provider spoke with his oncologist at [facility], Dr. Chiu. He was in agreement that the patient should be admitted to the hospital for further evaluation of the fever in the setting of chemotherapy. He requested that an MRI of the head be completed with and without contrast to rule out any mets to the brain, as on presentation the patient did have some stuttering and word finding difficulty but no focal neurodeficits otherwise. The patient spent the night in the ED because there were no beds available initially. He was in a private isolation room on telemetry monitoring with respiratory and neutropenic precautions (though he is not neutropenic). Med reconciliation was completed. Urinalysis not consistent with infection. CT of the abdomen showed some inflammation around the bladder as well as the rectosigmoid colon. This is not unexpected given the finding of cancer as well as chemoradiation. He was started on broad-spectrum antibiotics: vancomycin and cefepime. Source of the fever is not yet clear given the otherwise negative x-ray imaging yesterday. 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 On admission, blood cultures are still pending. He has back pain from lying on hard surfaces during his radiation treatment yesterday and during the MRI today. He also has abdominal pain from chemotherapy, which he states is difficult to differentiate from his bladder pain at times. He has no word finding difficu lties today. No nausea, vomiting, or headache. He can't remember when his last seizure was, but states it was several years ago. He does however bite his tongue during sleep about once weekly. - HOSPITAL COURSE Hospital Course: 1) Sepsis Patient met many criteria for sepsis including: tachycardia, fever, AMS, and 37% neutrophil bands. The source was presumed to be cystitis and colitis. He was put on iv fluids and empiric antibiotics (IV cefepime started in the ED on 02/05, IV Vancomycin was added on 02/06, and IV Flagyl added 02/06). There was no further fever and his mental status improved, and percent bandemia improved. 2) New onset a-fib On 02/07/23, pt went into new onset of rapid A-fib. He had no CP or SOB. HR re mained elevated at 160-170. He needed synchronized cardioversion, done by the ED provider Dr. Silva and converted into sinus rhythm after 1 shock of 100J. He was then moved to the ICU, monitored there for 24 hours, and started on Toprol XL 12.5 mg daily. He had no further A-fib. His troponins did double but were very low (troponins went from 14 to 59 to 29). Therefore this was probably a troponin "leak" from cardioversion. TSH was checked to rule out hyperthyroidism as the cause of this new A-fib, and his TSH was normal. I performed a limited bedside Echo to rule out structural heart disease (since we had no metallurgical lab technician here all the days he was here). The Echo showed normal LV size and function, but it did show cor pulmonale. I suspect that the cor pulmonale, may be the cause of his Afib. In addition, he did not feel his rapid Afib, therefore he may have been getting Afib and not be aware. He was discharged on new Toprol XL 12.5 mg daily and advised that he needs a stress test and Cardiology evaluation for CAD. He is already on an aspirin daily. Due to his Hx of ITP and brain bleed, no anticoagulants were started. 3) Elevated troponins Troponins were checked after new onset Afib went from 14 to 59 to 29. Therefore this was probably a troponin "leak" from cardioversion. An EKG was done, after the cardioversion, and it showed no ischemic ST or T wave changes. We checked his cholesterol and he had good results, no new meds were added. 4) Cor Pulmonale I performed a limited bedside Echo to rule out structural heart disease (since we had no metallurgical lab technician here, during all the days he was here). The Echo did show cor pulmonale. I asked the patient whether he has any pulmonary disease (to explain the cor pulmonale) and he did say he has RISSA and is not on CPAP because he could not tolerate the face mask. I suspect that untreated RISSA is the cause of his cor pulmonale. I discussed with patient, and at bedside, regarding better management of his RISSA, by repeating a sleep study and trying nasal pillows CPAP mask, for example. A new sleep study, split night, with different CPAP mask being tried, is now strongly recommended. 5) Cystitis Patient has been undergoing treatment for bladder cancer with [facility], and he sees Dr. Naivn Chiu, who was alerted of the patient's condition on 02/05. Patient did report pain with urination and his U/A showed blood and leukocyte esterase, but no nitrites. Abd CT from 02/05 showed: Bladder changes which may indicate cystitis. Urinary bladder masses seen, as before. The patient was put on empiric IV antibiotic IV cefepime (02/05) and IV vanco dose given (02/06) in the ED. Blood cultures were negative to date. We continued his home med Myrbetriq. The final urine culture had no growth, thus this was probably inflammation of the bladder and not infection. We stopped those empiric iv antibiotics. He did require narcotic meds for pain control. 6) Colitis Patient was started on IV cefepime (02/05) and IV vanco dose given (02/06) in the ED. Then after the admission CT abd showed thickening of the sigmoid colon within the anterior pelvis, consistent with infection, ischemia, or inflammation, iv Flagyl was added for anaerobe coverage due to colitis. His diet was de-escalated to pureed for easier digestion/bowel rest. When BM started, it was semiformed. We transitioned the empiric iv antibiotics to oral Cipro and oral Flagyl, and he was discharged on these and a daily probiotic. 7) Bladder cancer Patient has been undergoing treatment for bladder cancer consisting of chemotherapy and radiation therapy with Dr. Navin Chiu at [facility]. His most recent treatment date was 02/05. He has a chemo port. The ED provider spoke with Dr. Chiu on 02/05 to let him know the patient's status. Dr. Chiu requested a brain MRI be done to check for brain mets. The MRI was done and no mets were found. Patient describes that he gets a lot of bladder pain and lower abdominal discomfort. We continued his narcotic pain meds: Oxycodone 20 mg TID prn and Oxycodone 5 mg TID prn. He wants 2 different doses to have available, depending on the level of his pain. He also asked for a long-acting narcotic and prescribed several tablets of OxyContin 10 mg BID prn pain for after discharge. The patient said he will discuss further cancer treatment with his Oncologist, since it is more difficult with each course of chemotherapy and radiation, he said. 8) Seizure disorder Patient has a history of seizures. On 02/05, he experienced an episode of shakiness, which the thought was a seizure and brought him to the ER. His Dilantin level was 10.1. So 500 mg IV dilantin was given in the ED, however, no seizure was confirmed. It was likely shaking chills. As per the 's discussion with pharmacy, his Dilantin blood level needs to be about 15, not 10. Thus he was continued on his home Phenytoin of 300 mg daily 9) ITP This Dx was learned from his . 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 His allergy list states that he is allergic to "heparinoid's". The patient is on a daily baby aspirin which was continued as his stroke prophylaxis for the new onset A-fib. Unfortunately, he is not a candidate to get DOACs for the Afib because of this ITP and brain bleed history 10) Brain bleed As in 9 - ALLERGIES Allergies/Adverse Reactions: Allergies Allergy/AdvReac Type Severity Reaction Status Date / Time amitriptyline [Amitriptyline] Allergy Intermediate Hallucinati Verified 02/05/23 17:03 ons heparinoids Allergy Intermediate Rash Verified 02/05/23 17:03 baclofen Allergy Unknown Verified 02/05/23 17:03 celecoxib Allergy Unknown Verified 02/05/23 17:03 diphenhydramine Allergy paradoxical Verified 02/05/23 17:03 reaction divalproex sodium Allergy pancreatiti Verified 02/05/23 17:03 [From Depakote] s glucosamine Allergy Unknown Verified 02/05/23 17:03 naproxen Allergy GI pain Verified 02/05/23 17:03 oxcarbazepine Allergy Unknown Verified 02/05/23 17:03 [From Trileptal] pregabalin [From Lyrica] Allergy pancreatiti Verified 02/05/23 17:03 s - MEDICATIONS Home Medications: Ambulatory Orders Medication Instructions Recorded Confirmed Aspirin EC [Ecotrin] 81 mg PO DAILY 06/27/13 02/07/23 Vit A,C & E/Lutein/Minerals 1 each PO DAILY 06/27/13 02/07/23 [Ocuvite with Lutein Tablet] Cyanocobalamin (Vitamin B-12) 1,000 mcg PO DAILY 02/09/14 02/07/23 [Vitamin B-12] Cholecalciferol (Vitamin D3) 2,000 units ORAL DAILY 05/03/14 02/07/23 [Vitamin D3] levOCARNitine tartrate 250 mg PO BID 05/09/18 02/07/23 [l-Carnitine] polyethylene glycoL 3350 [Miralax] 17 gm PO DAILY 01/06/19 02/07/23 Finasteride 5 mg PO DAILY PM 02/21/19 02/07/23 Mirabegron [Myrbetriq] 50 mg PO DAILY PM 02/21/19 02/07/23 Famotidine [Pepcid] 20 mg PO BID 07/28/19 02/07/23 Phenytoin Infatab [Dilantin 50 mg PO QPM 07/28/19 02/07/23 Infatab] [place]-3/Dha/Epa/Fish Oil [Fish Oil 1,000 mg PO DAILY 11/29/21 02/07/23 1,000 mg Softgel] Oxycodone Myristate [Xtampza ER] 13.5 mg PO TID 11/29/21 02/07/23 oxyCODONE [Roxicodone] 5 mg PO TID PRN 12/01/21 02/07/23 LORazepam [Ativan] 0.5 mg PO QID PRN 02/07/23 02/07/23 Oxycodone HCl 20 mg PO TID PRN 02/07/23 02/07/23 Phenytoin [Dilantin] 200 mg PO HS 02/07/23 02/07/23 Ciprofloxacin [Cipro] 250 mg PO BID #8 tab 02/10/23 Lactobacillus Acidophilus 1 each PO DAILY #4 tablet 02/10/23 [Probiotic Acidophilus] Metoprolol Succinate [Toprol Xl] 12.5 mg PO DAILY #15 tab 02/10/23 Simethicone [Mylicon] 80 mg PO QID #60 tab 02/10/23 metroNIDAZOLE [Flagyl] 500 mg PO TID #12 tab 02/10/23 oxyCODONE ER [OxyCONTIN] 10 mg PO BID PRN #16 tab 02/10/23 - PHYSICAL EXAM AT DISCHARGE General Appearance: positive: No acute distress, Alert, Other (Elderly well kempt male, bald.) Eyes Bilateral: positive: Normal inspection, EOMI ENT: positive: ENT inspection nml, No signs of dehydration Neck: positive: Nml inspection, No JVD Respiratory: positive: No respiratory distress, Breath sounds nml Cardiovascular: positive: Regular rate & rhythm, No murmur Abdomen: positive: Non-tender, Nml bowel sounds, No distention Skin: positive: Warm, Dry Extremities: positive: Non-tender, No pedal edema Neurologic/Psychiatric: positive: Oriented x3, CN's nml (2-12), Motor nml - LABS Result Diagrams: 02/09/23 04:53 02/09/23 04:53 - DIAGNOSTIC IMAGING Diagnostic Imaging Results: Final report reviewed - SEPSIS Sepsis Criteria: Recorded Temperature greater than 38.3C or Less than 36C, Recorded Heart Rate greater than 90 bpm, WBC count greater than 10% bands, INGREDIENT SPECIALIST: altered consciousness (unrelated to primary neuro pathology) - FOLLOW UP Follow Up: See Oncologist at upcoming visit soon. - TIME SPENT Time Spent in Discharge (Minutes): 45
[2023-02-10] MEDS: polyethylene glycoL 3350 17 GM PACKET PO SCH (08:55)
[2023-02-10] MEDS: metroNIDAZOLE 250 MG TABLET PO SCH ×2 (08:57→12:06)
[2023-02-10] MEDS: SOLIFENACIN SUCCINATE 5 MG TABLET PO SCH (08:57)
[2023-02-10] MEDS: CHOLECALCIFEROL 25 MCG TABLET PO SCH (08:57)
[2023-02-10] MEDS: SACCHAROMYCES BOULARDII 250 MG CAPSULE PO SCH (08:57)
[2023-02-10] MEDS: LEVOCARNITINE TARTRATE 250 MG PO SCH (08:57)
[2023-02-10] MEDS: FAMOTIDINE 20 MG TABLET PO SCH (08:57)
[2023-02-10] MEDS: ASPIRIN EC 81 MG TABLET PO SCH (08:58)
[2023-02-10] MEDS: CIPROFLOXACIN 250 MG TABLET PO SCH (08:58)
[2023-02-10] MEDS: OMEGA-3 ACID ETHYL ESTERS 1 GM CAPSULE PO SCH (08:58)
[2023-02-10] MEDS: CYANOCOBALAMIN 500 MCG TABLET PO SCH (08:58)
[2023-02-10] MEDS: METOPROLOL SUCCINATE 25 MG TABLET PO SCH (09:00)
[2023-02-10] MEDS: oxyCODONE ER 10 MG TABLET PO PRN (09:25)
[2023-02-10] MEDS: ACETAMINOPHEN 325 MG TABLET PO PRN (09:25)
[2023-02-10 10:04] VITALS: BP 135/84
[2023-02-10] MEDS: SODIUM CHLORIDE FLUSH 0.9% 10 ML SYRINGE IVP PRN (11:53)
== END 2023-02-10 12:10 | disposition home or self-care (01) | DRG 872 ==
LOC: ED 16:51 → MS2 02-06 14:55 → ICU 02-07 08:24 → MS2 02-08 10:39
PROVIDERS: ADMIT Internal Medicine; ATTEND Internal Medicine
PROC: 5A2204Z Restoration of Cardiac Rhythm, Single (ICD-10-PCS; principal; 2023-02-07)
DX: A41.9 Sepsis, unspecified organism (principal); R56.9 Unspecified convulsions; I45.10 Unspecified right bundle-branch block; D69.3 Immune thrombocytopenic purpura; C67.9 Malignant neoplasm of bladder, unspecified; Z20.822 Contact with and (suspected) exposure to COVID-19; Z92.21 Personal history of antineoplastic chemotherapy; Z92.3 Personal history of irradiation; D64.9 Anemia, unspecified; R50.9 Fever, unspecified; M54.9 Dorsalgia, unspecified; I48.91 Unspecified atrial fibrillation; R77.8 Other specified abnormalities of plasma proteins; I27.81 Cor pulmonale (chronic); G47.33 Obstructive sleep apnea (adult) (pediatric); N30.90 Cystitis, unspecified without hematuria; K52.9 Noninfective gastroenteritis and colitis, unspecified; G40.909 Epilepsy, unspecified, not intractable, without status epilepticus; I10 Essential (primary) hypertension; K21.9 Gastro-esophageal reflux disease without esophagitis; H91.90 Unspecified hearing loss, unspecified ear; F41.9 Anxiety disorder, unspecified; M19.90 Unspecified osteoarthritis, unspecified site; L40.9 Psoriasis, unspecified; G89.29 Other chronic pain; Z79.82 Long term (current) use of aspirin; Z79.899 Other long term (current) drug therapy
CPT/HCPCS: 36415; 70450; 70553; 71045; 74177; 80048; 80053; 80061; 80069; 80185; 81001; 82330; 83605; 83690; 83735; 84100; 84132; 84443; 84484; 85025; 85610; 87040; 87086; 87150; 87633; 93005; 96365; 96366; 96367; 96368; 99285; A9270; A9585; J1650; J3370; Q9967; 80202; 83721

== ENCOUNTER 2023-02-12 13:00 | Inpatient (IN) | payer MEDICARE, OTHER ==
[2023-02-12 13:47] LABS: GLUCOSE, URINE (UA) 100 mg/dL (NEGATIVE); KETONES,URINE (UA) TRACE mg/dL (NEGATIVE); LEUKOCYTE ESTERASE, URINE SMALL (NEGATIVE); NITRITE,URINE NEGATIVE (NEGATIVE); OCCULT BLOOD,URINE LARGE (NEGATIVE); PH,URINE 6.5 PH (5.0-7.5); PROTEIN,URINE >=300 mg/dL (NEGATIVE); UROBILINOGEN,URINE 0.2 (NORMAL) E.U./dL (NORMAL)
[2023-02-12 13:52] LABS: CLARITY,URINE SL. CLOUDY (CLEAR)
[2023-02-12 13:55] LABS: BILIRUBIN,URINE NEGATIVE (NEGATIVE); ICTOTEST,URINE NEGATIVE
[2023-02-12 14:06] LABS: BACTERIA,URINE Few /HPF (None Seen); RBC,URINE TNTC /HPF (0-5); SQUAMOUS EPITHELIAL CELL,UR NONE SEEN (<= Few)
[2023-02-12 14:11] LABS: BASOPHILS % (AUTO) 0.5 %; EOSINOPHILS % (AUTO) 0.1 %; HCT - HEMATOCRIT 26.9 % (42.0-52.0); HGB - HEMOGLOBIN 9.2 g/dL (14.0-18.0); LYMPHOCYTES % (AUTO) 4.2 %; MEAN CORPUSCULAR HEMOGLOBIN 33.2 pg (27.0-31.0); MEAN CORPUSCULAR HGB CONC 34.2 g/dL (32.0-36.0); MEAN CORPUSCULAR VOLUME 97.1 fL (80.0-94.0); MONOCYTES % (AUTO) 10.8 %; NEUTROPHILS % (AUTO) 79.1 %; PLT - PLATELET COUNT 493 10^3/uL (130-450); RED BLOOD COUNT 2.77 10^6/uL (4.70-6.10); RED CELL DISTRIBUTION WIDTH 15.5 % (12.0-15.0); WHITE BLOOD COUNT 13.3 x10^3/uL (4.8-10.8)
[2023-02-12 14:12] LABS: SLIDE REVIEW? Indicated
[2023-02-12 14:26] LABS: ALBUMIN/GLOBULIN RATIO 0.9 (1.0-2.2); BILIRUBIN,TOTAL 0.5 mg/dL (0.2-1.0); CALCIUM 9.3 mg/dL (8.5-10.3); CREATININE 0.7 mg/dL (0.6-1.2); POTASSIUM 3.8 mmol/L (3.5-5.0); TOTAL PROTEIN 6.3 g/dL (6.7-8.2)
[2023-02-12 14:30] LABS: ABNORMAL LYMPHS % (MANUAL) 0 %
[2023-02-12 14:33] LABS: BAND NEUTROPHILS % (MANUAL) 17 %; DIFFERENTIAL COMMENT MANUAL DIFFERENTIAL; LYMPHOCYTES # (MANUAL) 0.9 10^3/uL (1.5-3.5); LYMPHOCYTES % (MANUAL) 6 %; METAMYELOCYTES % (MANUAL) 1 %; MONOCYTES # (MANUAL) 1.6 10^3/uL (0.0-1.0); MYELOCYTES % (MANUAL) 3 %; NEUTROPHILS # (MANUAL) 10.2 10^3/uL (1.5-6.6); NUCLEATED RBC (MANUAL) 1 %; RBC MORPHOLOGY (MULTIPLE) 4+ ANISOCYTOSIS (NORMAL); REACTIVE LYMPHS % (MANUAL) 1 %
--- NOTE | 2023-02-12 15:59 | ED Physician Documentation ---
History of Present Illness - Stated complaint Stated Complaint: ABD PX - Chief complaint Chief Complaint: Abd Pain - Additonal information Additional information: 82-year-old male returns to the emergency department for evaluation of uncontr olled abdominal pain. He was seen and admitted to this hospital on 05 February. At that time he had just Received a course of chemoradiation at [facility] when he began to have seizure-like activity in the car. He was admitted for sepsis of unclear etiology. While hospitalized he is urine did not grow anything. He was on broad-spectrum antibiotics vancomycin and cefepime. While hospitalized he did develop atrial fibrillation likely secondary to cor pulmonale. The patient was discharged from the hospital On 10 February. Since discharge he reports that he is continue to have persistent lower abdominal pain. No fevers. No wilbert dysuria. He has not yet followed back up with hematology/oncology. Patient reports that he is taking his Oxy codon as prescribed its not effective at relieving the pain. Review of Systems Constitutional: denies: Fever, Chills Cardiac: reports: Reviewed and negative Respiratory: reports: Reviewed and negative : reports: Reviewed and negative Skin: reports: Reviewed and negative Musculoskeletal: reports: Reviewed and negative PD PAST MEDICAL HISTORY - Past Medical History Cardiovascular: Hypertension Respiratory: Sleep apnea Neuro: Seizure disorder Endocrine/Autoimmune: None GI: GERD, Pancreatitis : Kidney stones, Other (Bladder cancer) HEENT: Chronic hearing loss, Other Psych: Anxiety Musculoskeletal: Osteoarthritis, Chronic back pain, Other Derm: Psoriasis - Past Surgical History Past Surgical History: Yes General: Cholecystectomy, Appendectomy, Bowel surgery, Splenectomy Ortho: Hip replacement, Arthroscopic surgery HEENT: Tonsil/Adenoidectomy, Other - Present Medications Home Medications: Ambulatory Orders Medication Instructions Recorded Confirmed Aspirin EC [Ecotrin] 81 mg PO DAILY 06/27/13 02/12/23 Vit A,C & E/Lutein/Minerals 1 each PO DAILY 06/27/13 02/12/23 [Ocuvite with Lutein Tablet] Cyanocobalamin (Vitamin B-12) 1,000 mcg PO DAILY 02/09/14 02/12/23 [Vitamin B-12] Cholecalciferol (Vitamin D3) 2,000 units ORAL DAILY 05/03/14 02/12/23 [Vitamin D3] levOCARNitine tartrate 250 mg PO BID 05/09/18 02/12/23 [l-Carnitine] polyethylene glycoL 3350 [Miralax] 17 gm PO DAILY 01/06/19 02/12/23 Finasteride 5 mg PO DAILY PM 02/21/19 02/12/23 Mirabegron [Myrbetriq] 50 mg PO DAILY PM 02/21/19 02/12/23 Famotidine [Pepcid] 20 mg PO BID 07/28/19 02/12/23 Phenytoin Infatab [Dilantin 50 mg PO QPM 07/28/19 02/12/23 Infatab] [place]-3/Dha/Epa/Fish Oil [Fish Oil 1,000 mg PO DAILY 11/29/21 02/12/23 1,000 mg Softgel] Oxycodone Myristate [Xtampza ER] 13.5 mg PO TID 11/29/21 02/12/23 oxyCODONE [Roxicodone] 5 mg PO TID PRN 12/01/21 02/12/23 LORazepam [Ativan] 0.5 mg PO QID PRN 02/07/23 02/12/23 Oxycodone HCl 20 mg PO TID PRN 02/07/23 02/12/23 Phenytoin [Dilantin] 200 mg PO HS 02/07/23 02/12/23 Ciprofloxacin [Cipro] 250 mg PO BID #8 tab 02/10/23 02/12/23 Lactobacillus Acidophilus 1 each PO DAILY #4 tablet 02/10/23 02/12/23 [Probiotic Acidophilus] Metoprolol Succinate [Toprol Xl] 12.5 mg PO DAILY #15 tab 02/10/23 02/12/23 Simethicone [Mylicon] 80 mg PO QID #60 tab 02/10/23 02/12/23 metroNIDAZOLE [Flagyl] 500 mg PO TID #12 tab 02/10/23 02/12/23 oxyCODONE ER [OxyCONTIN] 10 mg PO BID PRN #16 tab 02/10/23 02/12/23 Acetaminophen [Tylenol] 325 mg PO Q6H PRN 02/12/23 02/12/23 - Allergies Allergies/Adverse Reactions: Allergies Allergy/AdvReac Type Severity Reaction Status Date / Time amitriptyline [Amitriptyline] Allergy Intermediate Hallucinati Verified 02/12/23 13:10 ons heparinoids Allergy Intermediate Rash Verified 02/12/23 13:10 baclofen Allergy Unknown Verified 02/12/23 13:10 celecoxib Allergy Unknown Verified 02/12/23 13:10 diphenhydramine Allergy paradoxical Verified 02/12/23 13:10 reaction divalproex sodium Allergy pancreatiti Verified 02/12/23 13:10 [From Depakote] s glucosamine Allergy Unknown Verified 02/12/23 13:10 naproxen Allergy GI pain Verified 02/12/23 13:10 oxcarbazepine Allergy Unknown Verified 02/12/23 13:10 [From Trileptal] pregabalin [From Lyrica] Allergy pancreatiti Verified 02/12/23 13:10 s - Social History Does the pt smoke?: No Smoking Status: Former smoker Does the pt drink ETOH?: Yes Does the pt have substance abuse?: No - Immunizations Immunizations are current?: Yes - POLST Patient has POLST: No POLST Status: Full Code PD ED PE NORMAL - General General: Alert and oriented X 3, No acute distress - HEENT HEENT: Atraumatic, Moist mucous membranes - Neck Neck: Supple, no meningeal sign - Cardiac Cardiac: RRR, No murmur - Respiratory Respiratory: No respiratory distress, Clear bilaterally - Abdomen Abdomen: Normal bowel sounds, Soft. No: Non tender (Generalized abdominal tenderness. Some rebound. 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 Eye Opening: Spontaneous Motor: Obeys Commands Verbal: Oriented GCS Score: 15 Results - Vitals Vitals: Vital Signs - 24 hr 02/12/23 02/12/23 02/12/23 13:06 15:22 16:48 Temperature 36.5 C Heart Rate 74 78 Respiratory 18 16 18 Rate Blood Pressure 133/64 H 157/69 H O2 Saturation 99 99 02/12/23 02/12/23 18:10 19:02 Temperature Heart Rate 81 84 Respiratory 16 25 H Rate Blood Pressure 143/68 H 182/79 H O2 Saturation 97 99 Oxygen O2 Source Room air - Labs Labs: Laboratory Tests 02/12/23 02/12/23 02/12/23 13:30 14:06 14:06 WBC 13.3 H RBC 2.77 L Hgb 9.2 L Hct 26.9 L MCV 97.1 H MCH 33.2 H MCHC 34.2 RDW 15.5 H Plt Count 493 H MPV 9.0 Neut # (Auto) Not Reportable Lymph # (Auto) Not Reportable Elbert # (Auto) Not Reportable Eos # (Auto) Not Reportable Baso # (Auto) Not Reportable Absolute Nucleated RBC Not Reportable Total Counted 100 Band Neuts % (Manual) 17 H Reactive Lymphs % (Man) 1 Abnorm Lymph % (Manual) 0 Metamyelocytes % 1 H Myelocytes % 3 H Nucleated RBC % Not Reportable Neutrophils # (Manual) 10.2 H Lymphocytes # (Manual) 0.9 L Monocytes # (Manual) 1.6 H Eosinophils # (Manual) 0.0 Basophils # (Manual) 0.0 Nucleated RBCs 1 Differential Comment MANUAL DIFFERENTIAL Manual Slide Review Indicated RBC Morph Micro Appear 4+ ANISOCYTOSIS Sodium 136 Potassium 3.8 Chloride 101 Carbon Dioxide 26 Anion Gap 9.0 BUN 16 Creatinine 0.7 Estimated GFR (MDRD) 108 Glucose 123 H Lactic Acid Calcium 9.3 Total Bilirubin 0.5 AST 29 ALT 37 Alkaline Phosphatase 140 H Total Protein 6.3 L Albumin 3.0 L Globulin 3.3 Albumin/Globulin Ratio 0.9 L Lipase 211 H Urine Color DARK YELLOW Urine Clarity SL. CLOUDY Urine pH 6.5 Ur Specific [place] 1.025 Urine Protein >=300 H Urine Glucose (UA) 100 H Urine Ketones TRACE Urine Occult Blood LARGE H Urine Nitrite NEGATIVE Urine Bilirubin NEGATIVE Urine Urobilinogen 0.2 (NORMAL) Ur Leukocyte Esterase SMALL H Urine RBC TNTC H Urine WBC 11-25 H Ur Squamous Epith Cells NONE SEEN Urine Bacteria Few Ur Microscopic Review INDICATED Urine Culture Comments INDICATED 02/12/23 16:45 WBC RBC Hgb Hct MCV MCH MCHC RDW Plt Count MPV Neut # (Auto) Lymph # (Auto) Elbert # (Auto) Eos # (Auto) Baso # (Auto) Absolute Nucleated RBC Total Counted Band Neuts % (Manual) Reactive Lymphs % (Man) Abnorm Lymph % (Manual) Metamyelocytes % Myelocytes % Nucleated RBC % Neutrophils # (Manual) Lymphocytes # (Manual) Monocytes # (Manual) Eosinophils # (Manual) Basophils # (Manual) Nucleated RBCs Differential Comment Manual Slide Review RBC Morph Micro Appear Sodium Potassium Chloride Carbon Dioxide Anion Gap BUN Creatinine Estimated GFR (MDRD) Glucose Lactic Acid 0.6 Calcium Total Bilirubin AST ALT Alkaline Phosphatase Total Protein Albumin Globulin Albumin/Globulin Ratio Lipase Urine Color Urine Clarity Urine pH Ur Specific [place] Urine Protein Urine Glucose (UA) Urine Ketones Urine Occult Blood Urine Nitrite Urine Bilirubin Urine Urobilinogen Ur Leukocyte Esterase Urine RBC Urine WBC Ur Squamous Epith Cells Urine Bacteria Ur Microscopic Review Urine Culture Comments - Rads (name of study) CT abd Relevant Findings:: Final report received (Compared to 5 3, new peripancreatic inflammatory changes suspicious for acute interstitial pancreatitis. No hypoenhancement suggest necrosis. Persistent moderate to severe focal inflammation and narrowing of the sigmoid colon. Consider colonoscopy. left pleural effusion.) PD Medical Decision Making - ED course Complexity details: reviewed results, re-evaluated patient, considered differential, d/w patient ED course: 82-year-old male who has a history of bladder cancer currently undergoing chemoradiation through [facility] return to the emergency department with uncontrolled abdominal pain. Was hospitalized here from the third through the eighth for concerns of sepsis and possible UTI. While hospitalized blood cultures and urine culture were all entirely negative. However a CT of the abdomen had shown some concerns for inflammation and narrowing in the distal colon. As such when discharged home on the eighth he was sent home on Cipro and Flagyl. Overnight the patient continued to have persistent pain in his lower belly but this a.m. began having pain in the upper abdomen. No fevers or vomiting. It should be noted that he does have quite a high opioid tolerance and takes a large amount of narcotics at home for simple pain relief. Here in the emergency department on exam he appears uncomfortable and has some generalized abdominal pain most focal in the upper and lower abdomen. I did obtain blood cultures x2, with 1 set being obtained from his chest port, CBC, electrolytes urinalysis, chest x-ray and lactate. I do note that he has an elevated leukocytosis with bandemia. This is new from discharge on the eighth. He also has an elevated lipase of 211 also new from the 8th. His urinalysis is concerning for infection. A culture is pending. Given the inflammation around the bladder however acute cystitis is not clear. Clinically the patient does meet the criteria for sepsis with bandemia, leukocytosis and Urinalysis results. Given the previous history he was started on broad-spectrum antibiotics cefepime, Vanco as well as Flagyl to cover enteric abdominal organisms. Subsequently a CT of the abdomen was completed today in the emergency department and it does show persistent inflammation and narrowing in the sigmoid colon. Patient has developed a new small left pleural effusion. However compared to 02/05/2023 the patient has also developed new peripancreatic inflammatory changes suspicious for interstitial pancreatitis. Clinically the patient does I had previously spoken on the phone with Dr. Aquino regarding my concerns. She agreed the patient did require admission to the hospital but at that time no bed was available. However now at the time of 1834 a bed has become available and we will admit the patient to telemetry hospitalist overnight. I discussed the plan and findings with the patient and his at the bedside and they are in agreement. 1999: I have spoken with Dr. byrd Telemetry hospitalist who agrees to see the patient and admit for pancreatitis lower abdominal pain. This is likely a shorter admission 24 to 48 hours duration, pending improvement in labs and negative cultures Departure - Departure Disposition: 66 [facility] DC/Xfer Clinical Impression: Bandemia without diagnosis of specific infection Acute pancreatitis Qualifiers: Pancreatitis type: unspecified pancreatitis type Acute pancreatitis complication: unspecified Qualified Code(s): K85.90 - Acute pancreatitis without necrosis or infection, unspecified Bladder cancer Qualifiers: Bladder location: unspecified site Qualified Code(s): C67.9 - Malignant neoplasm of bladder, unspecified Leukocytosis Qualifiers: Leukocytosis type: bandemia Qualified Code(s): D72.825 - Bandemia
[2023-02-12] MEDS ORDERED: metroNIDAZOLE 500 MG/100 ML 500 MG/100 ML BAG IV ONE (16:28)
[2023-02-12] MEDS ORDERED: VANCOMYCIN INJ 1.75 GM in SODIUM CHLORIDE 0.9% 500 ML IV STA (16:37)
--- NOTE | 2023-02-12 16:50 | XRAY Report ---
PROCEDURE: Chest 1 View X-Ray INDICATIONS: chest pain TECHNIQUE: One view of the chest was acquired. COMPARISON: None. FINDINGS: Surgical changes and devices: Right Port-A-Cath tip in the distal SVC. Pelvic density projecting ove r the right lower neck is probably external to the patient Lungs and pleura: Minimal blunting the left costophrenic angle Mediastinum: Mediastinal contours appear normal. Heart size is enlarged. Atherosclerotic vascular calcification noted in the aortic arch. Bones and chest wall: No suspicious bony lesions. Overlying soft tissues appear unremarkable. IMPRESSION: Probable small left pleural effusion associated atelectasis present. Reviewed by: Silverio Orta MD on 02/12/2023 3:49 PM FRANCINE Approved by: Silverio Orta MD on 02/12/2023 3:49 PM FRANCINE Station ID: [id number]
[2023-02-12] MEDS ORDERED: iohexoL-300 100 ML VIAL ONE (16:55)
[2023-02-12] MEDS ORDERED: VANCOMYCIN INJ 1 GM in SODIUM CHLORIDE 0.9% 250 ML IV SCH (17:00)
[2023-02-12] MEDS: CEFEPIME 2 GM in SODIUM CHLORIDE 0.9% MINIBAG 100 ML IV SCH ×2 (17:10→21:29)
[2023-02-12] MEDS ORDERED: VANCOMYCIN 1 GM VIAL ONE (17:47)
[2023-02-12] MEDS: VANCOMYCIN INJ 1 GM, VANCOMYCIN INJ 500 MG in SODIUM CHLORIDE 0.9% 500 ML IV SCH ×2 (18:14→19:14)
--- NOTE | 2023-02-12 18:14 | CT Report ---
PROCEDURE: ABDOMEN/PELVIS W INDICATIONS: abd pain CONTRAST: 100ml Omnipaque 300 TECHNIQUE: After the administration of IV contrast, 5 mm thick sections acquired from the diaphragms to the symp hysis. 5 mm thick coronal and sagittal reformats were acquired. For radiation dose reduction, the f ollowing was used: automated exposure control, adjustment of mA and/or kV according to patient size. COMPARISON: 02/05/2023, 11/08/2022 FINDINGS: Image quality: Good Lower chest: Basal scarring/atelectasis. Small left pleural effusion. Partially seen venous catheter in the SVC. Trace pericardial effusion. Solid organs: Nonspecific periportal edema. The liver is otherwise unremarkable. Cholecystectomy clip s. No pathologic dilation of the biliary tree or pancreatic duct. There is mild to moderate peripancreatic fat stranding, increased from prior. The spleen is absent. Similar calcifications adjacent to the pancreatic tail. No adrenal nodules. A right ureteral stent is in place, with periureteral fat stranding and mild pers istent dilation of the ureter. This is similar to prior. Small hypoattenuating renal lesions are prob ably cysts. Vessels and lymph nodes: The main portal vein is patent. No abdominal aortic aneurysm. No pathologic lymph nodes by size criteria. Bowel and peritoneum: No evidence of small bowel obstruction. Moderate fecal loading. Moderate to sev ere focal inflammation and narrowing of the sigmoid colon. No drainable abscess or ascites. Body wall: Anterior abdominal wall postsurgical changes. No abscess. Pelvis: Asymmetric bladder wall thickening and masses, not well seen on this study. Ureteral stent pi gtails in the bladder. Obscured by metallic artifact. Bones: A left hip arthroplasty is present. There are degenerative changes. IMPRESSION: Compared to 02/05/2023, new peripancreatic inflammatory changes suspicious for acute interstitial pancr eatitis. No hypoenhancement to suggest necrosis. Please correlate with lipase. Persistent moderate to severe focal inflammation and narrowing of the sigmoid colon. Consider correla tion with stool studies and colonoscopy. Small new left pleural effusion. Nonspecific periportal hepatic edema. Stable fat stranding and mild dilation of the right ureter, with stent in place. Bladder masses are not well seen on this study. Th ere is perivesicular edema and inflammation. Other incidental/stable findings above. Reviewed by: Jhonny Rasmussen MD on 02/12/2023 6:13 PM PDT Approved by: Jhonny Rasmussen MD on 02/12/2023 6:13 PM PDT Station ID: [id number]
[2023-02-12] MEDS ORDERED: oxyCODONE 5 MG TABLET PO STA (18:31)
[2023-02-12] MEDS ORDERED: HYDROmorphone 1 MG/ML CARPUJECT IVP STA ×3 (18:31→20:15)
[2023-02-12] MEDS ORDERED: NON FORMULARY MED (Oxycodone Hcl [Oxycodone Hcl] 10 MG Tablet) PO PRN (20:00)
[2023-02-12] MEDS ORDERED: oxyCODONE 5 MG TABLET PO PRN (20:00)
[2023-02-12] MEDS ORDERED: cefTRIAXone 2 GM in SODIUM CHLORIDE 0.9% MINIBAG 100 ML IV STA (20:06)
--- NOTE | 2023-02-12 20:45 | HISTORY & PHYSICAL EXAMINATION ---
Chief Complaint - Chief Complaint Chief Complaint: Abdominal pain History of Present Illness - Admitted From Admitted From:: Home - History Obtained From Records Reviewed: Yes History obtained from: Pateint, and ER team Exam Limitations: Telemed - History of Present Illness HPI Comment/Other: 82-year-old male returns to the emergency department for evaluation of uncontrolled abdominal pain. He was seen and admitted to this hospital on 05 February. At that time he had just Received a course of chemoradiation at [facility] when he began to have seizure-like activity in the car. He was admitted for sepsis of unclear etiology. While hospitalized he is urine did not grow anything. He was on broad-spectrum antibiotics vancomycin and cefepime. While hospitalized he did develop atrial fibrillation likely secondary to cor pulmonale. The patient was discharged from the hospital On 10 February. Since discharge he reports that he is continue to have persistent lower abdominal pain. No fevers. No wilbert dysuria. He has not yet followed back up with hematology/oncology. Patient reports that he is taking his Oxy codon as prescribed its not effective at relieving the pain. Patient was recently dc from hospital on 02/10/2023 "Patient is an 82-year-old male currently undergoing chemo and radiation for treatment of bladder cancer who presented to the emergency department on 02/05 for evaluation of seizure-like activity. He did receive chemotherapy that day at [facility] and as his was driving him home, he began to have some shaking and rigors of his arms which she and the patient thought were concerning for seizures. However he never had any lapse in consciousness, remained alert and conversant. On presentation to the emergency department, he was noted to be febrile up to 103.4. He did have some mild tachycardia with a resting heart rate of 108. No hypotension was noted. Given the history of bladder cancer as well as recent chemotherapy, appropriate sepsis labs were obtained including blood cultures x2, urinalysis, CBC, electrolytes and lactate. The CBC per the ER provider's interpretation showed no acute worrisome findings. No leukopenia or leukocytosis. He did have a very mild anemia with a hemoglobin of 10.4. Patient's reports a remote history of thrombocytopenia but his platelet count today is normal. His blood chemistry was essentially unrem arkable. Lactate was negative. UA may be indicative of early cystitis given the large amount of WBCs but there is rare bacteria. A culture is pending. Given lack of acidosis or hypotension patient does not present as having septic shock His requested we obtain a Dilantin level as she states that he likes to run in the "higher ranges." Dilantin level was 10.1. He was administered 500 mg of Dilantin IV here in the ER. Clinically, the ED provider was not suspicious that the patient had seizure activity as reported by the as he remained alert and conversant throughout. He was most likely experiencing rigors and chills in the setting of fever. Subsequently, we did obtain a CT of the head which showed no acute intracranial findings. This patient does have an indwelling right upper chest port. Chest x-ray showed no findings of pneumonia and the patient was started on broad-spectrum antibiotics with cefepime and Vanco. The ED provider spoke with his oncologist at [facility], Dr. Chiu. He was in agreement that the patient should be admitted to the hospital for further evaluation of the fever in the setting of chemotherapy. He requested that an MRI of the head be completed with and without contrast to rule out any mets to the brain, as on presentation the patient did have some stuttering and word finding difficulty but no focal neurodeficits otherwise. The patient spent the night in the ED because there were no beds available initially. He was in a private isolation room on telemetry monitoring with respiratory and neutropenic precautions (though he is not neutropenic). Med reconciliation was completed. Urinalysis not consistent with infection. CT of the abdomen showed some inflammation around the bladder as well as the rectosigmoid colon. This is not unexpected given the finding of cancer as well as chemoradiation. He was started on broad-spectrum antibiotics: vancomycin and cefepime. Source of the fever is not yet clear given the otherwise negative x-ray imaging yesterday. 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 On admission, blood cultures are still pending. He has back pain from lying on hard surfaces during his radiation treatment yesterday and during the MRI today. He also has abdominal pain from chemotherapy, which he states is difficult to differentiate from his bladder pain at times. He has no word finding difficulties today. No nausea, vomiting, or headache. He can't remember when his last seizure was, but states it was several years ago. 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, complaints of inability to empty his bladder has had 4 chemo and 16 chem radiation session, complains of Pain Pateint wants to be full code interested in research therapy Patient is very inolved in community work [email or web address] We had a very lengthy conversation and all question answered, for 60 yr with his who also was part of our conversation History - Past Medical History Cardiovascular: reports: Hypertension Respiratory: reports: Sleep apnea Neuro: reports: Seizure disorder Endocrine/Autoimmune: reports: None GI: reports: GERD, Pancreatitis : reports: Kidney stones, Other (Bladder cancer) HEENT: reports: Chronic hearing loss, Other Psych: reports: Anxiety Musculoskeletal: reports: Osteoarthritis, Chronic back pain, Other Derm: reports: Psoriasis MRSA Hx?: No - Past Surgical History General: reports: Cholecystectomy, Appendectomy, Bowel surgery, Splenectomy Ortho: reports: Hip replacement, Arthroscopic surgery HEENT: reports: Tonsil/Adenoidectomy, Other - Family & Social History Family History Comment/Other: Patient's father had Parkinson's disease. His mother from an unspecified cancer. His brother from pancreatic cancer. He has 3 children who are healthy. Social History Notes: He lives at home with his . He is independent of activities of daily living. He gets around using a walker. His physical activity has steadily decreased over the past years due to osteoarthritis. He does not consume tobacco or alcohol products. He uses CBD/THC products. - POLST Patient has POLST: No POLST Status: Full Code Meds/Allgy - Home Medications Home Medications: Ambulatory Orders Medication Instructions Recorded Confirmed Aspirin EC [Ecotrin] 81 mg PO DAILY 06/27/13 02/12/23 Vit A,C & E/Lutein/Minerals 1 each PO DAILY 06/27/13 02/12/23 [Ocuvite with Lutein Tablet] Cyanocobalamin (Vitamin B-12) 1,000 mcg PO DAILY 02/09/14 02/12/23 [Vitamin B-12] Cholecalciferol (Vitamin D3) 2,000 units ORAL DAILY 05/03/14 02/12/23 [Vitamin D3] levOCARNitine tartrate 250 mg PO BID 05/09/18 02/12/23 [l-Carnitine] polyethylene glycoL 3350 [Miralax] 17 gm PO DAILY 01/06/19 02/12/23 Finasteride 5 mg PO DAILY PM 02/21/19 02/12/23 Mirabegron [Myrbetriq] 50 mg PO DAILY PM 02/21/19 02/12/23 Famotidine [Pepcid] 20 mg PO BID 07/28/19 02/12/23 Phenytoin Infatab [Dilantin 50 mg PO QPM 07/28/19 02/12/23 Infatab] Rickreall-3/Dha/Epa/Fish Oil [Fish Oil 1,000 mg PO DAILY 11/29/21 02/12/23 1,000 mg Softgel] Oxycodone Myristate [Xtampza ER] 13.5 mg PO TID 11/29/21 02/12/23 oxyCODONE [Roxicodone] 5 mg PO TID PRN 12/01/21 02/12/23 LORazepam [Ativan] 0.5 mg PO QID PRN 02/07/23 02/12/23 Oxycodone HCl 20 mg PO TID PRN 02/07/23 02/12/23 Phenytoin [Dilantin] 200 mg PO HS 02/07/23 02/12/23 Ciprofloxacin [Cipro] 250 mg PO BID #8 tab 02/10/23 02/12/23 Lactobacillus Acidophilus 1 each PO DAILY #4 tablet 02/10/23 02/12/23 [Probiotic Acidophilus] Metoprolol Succinate [Toprol Xl] 12.5 mg PO DAILY #15 tab 02/10/23 02/12/23 Simethicone [Mylicon] 80 mg PO QID #60 tab 02/10/23 02/12/23 metroNIDAZOLE [Flagyl] 500 mg PO TID #12 tab 02/10/23 02/12/23 oxyCODONE ER [OxyCONTIN] 10 mg PO BID PRN #16 tab 02/10/23 02/12/23 Acetaminophen [Tylenol] 325 mg PO Q6H PRN 02/12/23 02/12/23 - Allergies Allergies/Adverse Reactions: Allergies Allergy/AdvReac Type Severity Reaction Status Date / Time amitriptyline [Amitriptyline] Allergy Intermediate Hallucinati Verified 02/12/23 13:10 ons heparinoids Allergy Intermediate Rash Verified 02/12/23 13:10 baclofen Allergy Unknown Verified 02/12/23 13:10 celecoxib Allergy Unknown Verified 02/12/23 13:10 diphenhydramine Allergy paradoxical Verified 02/12/23 13:10 reaction divalproex sodium Allergy pancreatiti Verified 02/12/23 13:10 [From Depakote] s glucosamine Allergy Unknown Verified 02/12/23 13:10 naproxen Allergy GI pain Verified 02/12/23 13:10 oxcarbazepine Allergy Unknown Verified 02/12/23 13:10 [From Trileptal] pregabalin [From Lyrica] Allergy pancreatiti Verified 02/12/23 13:10 s Review of Systems - Gastrointestinal Gastrointestinal: reports: Abdominal pain - Genitourinary Genitourinary: reports: Dysuria, Urgency, Other (Inability to empyty his bladder) Prior Level of Functionality: Independt with ADL Exam - Vital Signs Vital Signs: Vital Signs x48h Temp Pulse Resp BP Pulse Ox 02/12/23 19:02 84 25 H 182/79 H 99 02/12/23 18:10 81 16 143/68 H 97 02/12/23 16:48 78 18 157/69 H 99 02/12/23 15:22 16 02/12/23 13:06 36.5 C 74 18 133/64 H 99 - Physical Exam General Appearance: positive: No acute distress, Alert Eyes Bilateral: positive: Normal inspection, PERRL ENT: positive: No signs of dehydration Neck: positive: Nml inspection Respiratory: positive: No respiratory distress Cardiovascular: positive: No murmur, No gallop Abdomen: positive: Other (Mild episgastric tenderness) Extremities: positive: Non-tender, Nml appearance Neurologic/Psychiatric: positive: CN's nml (2-12) Sepsis Event Note (H) - Evaluation Current Stage of Sepsis: Ruled out Conclusion/Plan - Problem List (1) Pancreatitis, acute Conclusion/Plan: 1) Abdominal pain - Likely from pancreatitis cause not known, clears for now, repeat labs in am may have some colitis from RT, also has UTI intra abdominal infection can not be ruled out as has new bandemia and UTI will started on Rocephin and Falgyl follow up cultures and repeat labs in am IvF, pain meds and place bobby to assist with urination and bladder empyting 2) Paroxysmal a-fib Continue Toprol XL 12.5 mg daily and advised that he needs a stress test and Cardiology evaluation for CAD. He is already on an aspirin daily. Due to his Hx of ITP and brain bleed, no anticoagulants were started. 3) Elevated troponins Troponins elevated during last admit, stress test as outpatient 4) Cor Pulmonale Cpap at home 5) Cystitis Patient has been undergoing treatment for bladder cancer with [facility], and he sees Dr. Navin Chiu, recommended second opinion for his bladder cancer, has completed traditional therapy and plan for possible immunotherapy 6) Colitis Patient was started on IV cefepime (02/05) and IV vanco dose given (02/06) in the ED. Then after the admission CT abd showed thickening of the sigmoid colon within the anterior pelvis, consistent with infection, ischemia, or inflammation,Rocephin and Falgyl 7) Bladder cancer Patient has been undergoing treatment for bladder cancer consisting of chemotherapy and radiation therapy with Dr. Navin Chiu at [facility]. His most recent treatment date was 02/05. He has a chemo port. 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 ASa on hold to be resumed in am 10) Brain bleed more than 10 years ago stable at this time 11SCD for DVT Prophylaxis Continue pain meds Further treatment will be based on his clinical course, daily labs and imaging data This service was provided through audio-visual technology. Pateint was informed that I am based in [facility] while he is in [facility] The names and roles of any other persons participating in the telehealth service, patient, ER MD, and patients Total time soent 110 mins . Qualifiers: Pancreatitis type: unspecified pancreatitis type Acute pancreatitis complication: unspecified Qualified Code(s): K85.90 - Acute pancreatitis without necrosis or infection, unspecified (2) Abdominal pain Qualifiers: Abdominal location: generalized Qualified Code(s): R10.84 - Generalized abdominal pain (4) Altered mental status Qualifiers: Altered mental status type: coma Coma depth: [place] coma 13-15 Coma timing: at arrival to emergency department Qualified Code(s): R40.9101 - Bob coma scale score 13-15, at arrival to emergency department (6) Bladder cancer Qualifiers: Bladder location: unspecified site Qualified Code(s): C67.9 - Malignant neoplasm of bladder, unspecified - Lab Results Fish Bones: 02/12/23 14:06 02/12/23 14:06
[2023-02-12] MEDS ORDERED: LORazepam 2 MG/ML VIAL IVP STA (21:00)
[2023-02-12] MEDS ORDERED: PHENYTOIN 100 MG PO SCH (21:00)
[2023-02-12] MEDS: oxyCODONE 5 MG TABLET PO PRN (21:28)
[2023-02-12] MEDS: MORPHINE 2 MG/ML CARPUJECT IVP PRN (21:28)
[2023-02-12] MEDS: FAMOTIDINE 20 MG TABLET PO SCH (21:29)
[2023-02-12] MEDS: FINASTERIDE 5 MG TABLET PO SCH (21:29)
[2023-02-12] MEDS: SIMETHICONE CHEW 80 MG TABLET PO SCH (21:29)
[2023-02-12] MEDS: SODIUM CHLORIDE 0.9% 1,000 ML IV SCH (21:30)
[2023-02-12] MEDS ORDERED: LORazepam 2 MG/ML VIAL IVP PRN (22:04)
[2023-02-12] MEDS: PHENYTOIN CHEW 50 MG TABLET PO SCH (23:49)
[2023-02-12] MEDS: PHENAZOPYRIDINE 100 MG TABLET PO SCH (23:49)
[2023-02-12] MEDS: PHENYTOIN ER 100 MG CAPSULE PO SCH (23:49)
[2023-02-12] MEDS: METOPROLOL SUCCINATE 25 MG TABLET PO SCH (23:50)
[2023-02-13] MEDS: SODIUM CHLORIDE FLUSH 0.9% 10 ML SYRINGE IVP SCH ×5 (02:17→23:12)
[2023-02-13] MEDS: metroNIDAZOLE 500 MG/100 ML 500 MG/100 ML BAG IV SCH ×3 (03:55→20:11)
[2023-02-13] MEDS: PHENAZOPYRIDINE 100 MG TABLET PO SCH ×3 (06:01→21:24)
[2023-02-13] MEDS: ZINC OXIDE 20% OINT 30 GM TUBE TOP PRN ×2 (06:01→11:48)
[2023-02-13] MEDS: oxyCODONE 5 MG TABLET PO PRN ×3 (06:01→19:26)
[2023-02-13 06:16] LABS: BASOPHILS # (AUTO) 0.1 10^3/uL (0.0-0.1); BASOPHILS % (AUTO) 0.4 %; EOSINOPHILS % (AUTO) 0.1 %; HCT - HEMATOCRIT 25.7 % (42.0-52.0); HGB - HEMOGLOBIN 8.7 g/dL (14.0-18.0); LYMPHOCYTES # (AUTO) 0.6 10^3/uL (1.5-3.5); LYMPHOCYTES % (AUTO) 4.3 %; MEAN CORPUSCULAR HEMOGLOBIN 32.7 pg (27.0-31.0); MEAN CORPUSCULAR HGB CONC 33.9 g/dL (32.0-36.0); MEAN CORPUSCULAR VOLUME 96.6 fL (80.0-94.0); MEAN PLATELET VOLUME 8.8 fL (7.4-11.4); MONOCYTES # (AUTO) 1.7 10^3/uL (0.0-1.0); MONOCYTES % (AUTO) 12.1 %; NEUTROPHILS # (AUTO) 11.2 10^3/uL (1.5-6.6); NEUTROPHILS % (AUTO) 78.7 %; NRBC ABSOLUTE COUNT (AUTO) 0.07 x10^3/uL; NUCLEATED RED BLOOD CELLS AUTO 0.5 /100WBC; PLT - PLATELET COUNT 501 10^3/uL (130-450); RED BLOOD COUNT 2.66 10^6/uL (4.70-6.10); RED CELL DISTRIBUTION WIDTH 15.8 % (12.0-15.0); WHITE BLOOD COUNT 14.3 x10^3/uL (4.8-10.8)
[2023-02-13 06:19] LABS: SLIDE REVIEW? Indicated
[2023-02-13 06:29] LABS: ALBUMIN 2.5 g/dL (3.2-5.5); ALBUMIN/GLOBULIN RATIO 0.8 (1.0-2.2); BILIRUBIN,TOTAL 0.6 mg/dL (0.2-1.0); CALCIUM 8.9 mg/dL (8.5-10.3); CREATININE 0.5 mg/dL (0.6-1.2); POTASSIUM 3.7 mmol/L (3.5-5.0); TOTAL PROTEIN 5.6 g/dL (6.7-8.2)
[2023-02-13] MEDS ORDERED: VANCOMYCIN INJ 1 GM, VANCOMYCIN INJ 500 MG in SODIUM CHLORIDE 0.9% 500 ML IV SCH (07:00)
[2023-02-13 07:27] LABS: RBC MORPHOLOGY (MULTIPLE) 3+ ANISOCYTOSIS (NORMAL)
[2023-02-13] MEDS: SIMETHICONE CHEW 80 MG TABLET PO SCH ×4 (08:04→21:24)
[2023-02-13] MEDS: ASPIRIN EC 81 MG TABLET PO SCH (08:04)
[2023-02-13] MEDS: FAMOTIDINE 20 MG TABLET PO SCH ×2 (08:04→21:23)
[2023-02-13] MEDS: CYANOCOBALAMIN 500 MCG TABLET PO SCH (08:04)
[2023-02-13] MEDS: OMEGA-3 ACID ETHYL ESTERS 1 GM CAPSULE PO SCH (08:04)
[2023-02-13] MEDS: LACTOBACILLUS RHAMNOSUS GG CAPSULE PO SCH (08:04)
[2023-02-13] MEDS: METOPROLOL SUCCINATE 25 MG TABLET PO SCH (08:04)
[2023-02-13] MEDS: polyethylene glycoL 3350 17 GM PACKET PO SCH (08:05)
[2023-02-13] MEDS: CHOLECALCIFEROL 25 MCG TABLET PO SCH (08:05)
[2023-02-13] MEDS: cefTRIAXone 1 GM in SODIUM CHLORIDE 0.9% MINIBAG 100 ML IV SCH (08:05)
--- NOTE | 2023-02-13 08:21 | PROVIDER PROGRESS NOTE ---
Subjective - Prog Note Date Prog Note Date: 02/13/23 Prog Note Time: 08:21 - Subjective Pt reports feeling: Improved (Pt stats he "feels pretty well.") Subjective: Although he states he is feeling better, he is concerned about the schedule of his pain medications. He feels they are "inhumane," and that he should not have to wait a certain amount of time to have his pain relieved. I explained to pt that there are protocols in place for the safety of our patients. He expressed understanding, but was still upset. He is laying still in bed in order to avoid pain. Current Medications - Current Medications Current Medications: Active Medications Acetaminophen (Acetaminophen 325 Mg Tablet) 325 mg PO Q6H PRN PRN Reason: PRN PAIN &/OR FEVER Aspirin (Aspirin Ec 81 Mg Tablet) 81 mg PO DAILY [facility] Last Admin: 02/13/23 08:04 Dose: 81 mg Cholecalciferol (Cholecalciferol 25 Mcg Tablet) 50 mcg PO DAILY [facility] Last Admin: 02/13/23 08:05 Dose: 50 mcg Cyanocobalamin (Cyanocobalamin 500 Mcg Tablet) 1,000 mcg PO DAILY [facility] Last Admin: 02/13/23 08:04 Dose: 1,000 mcg Famotidine (Famotidine 20 Mg Tablet) 20 mg PO BID [facility] Last Admin: 02/13/23 08:04 Dose: 20 mg Finasteride (Finasteride 5 Mg Tablet) 5 mg PO HS [facility] Last Admin: 02/12/23 21:29 Dose: 5 mg Sodium Chloride (Normal Saline 0.9%) 1,000 mls @ 50 mls/hr IV .Q20H [facility] Last Admin: 02/12/23 21:30 Dose: 50 mls/hr Metronidazole (Flagyl 500 Mg/100 Ml) 500 mg in 100 mls @ 100 mls/hr IV Q8H [facility] Last Infusion: 02/13/23 05:00 Dose: Infused Ceftriaxone Sodium 1 gm/ (Sodium Chloride) 100 mls @ 200 mls/hr IV DAILY [facility] Last Admin: 02/13/23 08:05 Dose: 200 mls/hr Lactobacillus Rhamnosus (Lactobacillus Rhamnosus Gg Capsule) 1 cap PO DAILY [facility] Last Admin: 02/13/23 08:04 Dose: 1 cap Lorazepam (Lorazepam 2 Mg/Ml Vial) 0.5 mg IVP HS PRN PRN Reason: Anxiety Metoprolol Succinate (Metoprolol Succinate 25 Mg Tablet) 25 mg PO DAILY [facility] Last Admin: 02/13/23 08:04 Dose: 25 mg Morphine Sulfate (Morphine 2 Mg/Ml Carpuject) 2 mg IVP Q6HR PRN PRN Reason: Pain 8 to 10 Last Admin: 02/12/23 21:28 Dose: 2 mg Multi-Ingredient Ointment (Zinc Oxide 20% Oint 30 Gm Tube) 1 applic TOP PRN PRN PRN Reason: Skin Care Last Admin: 02/13/23 06:01 Dose: 1 applic [id number] Ethyl Esters ([place]-3 Acid Ethyl Esters 1 Gm Capsule) 1 gm PO DAILY [facility] Last Admin: 02/13/23 08:04 Dose: 1 gm Ondansetron HCl (Ondansetron 4 Mg/2 Ml Vial) 4 mg IVP Q6HR PRN PRN Reason: Nausea / Vomiting Oxycodone HCl (Oxycodone 5 Mg Tablet) 20 mg PO TID PRN PRN Reason: PAIN 5-7 Last Admin: 02/13/23 06:01 Dose: 20 mg Oxycodone HCl (Oxycodone 5 Mg Tablet) 5 mg PO TID PRN PRN Reason: PAIN 1-4 Phenazopyridine HCl (Phenazopyridine 100 Mg Tablet) 100 mg PO TID [facility] Last Admin: 02/13/23 06:01 Dose: 100 mg Phenytoin Sodium (Phenytoin Chew 50 Mg Tablet) 50 mg PO QPM [facility] Last Admin: 02/12/23 23:49 Dose: 50 mg Phenytoin Sodium (Phenytoin Er 100 Mg Capsule) 200 mg PO HS [facility] Last Admin: 02/12/23 23:49 Dose: 200 mg Polyethylene Glycol (Polyethylene Glycol 3350 17 Gm Packet) 17 gm PO DAILY [facility] Last Admin: 02/13/23 08:05 Dose: 17 gm Simethicone (Simethicone Chew 80 Mg Tablet) 80 mg PO QID [facility] Last Admin: 02/13/23 08:04 Dose: 80 mg Sodium Chloride (Sodium Chloride Flush 0.9% 10 Ml Syringe) 10 ml IVP PRN PRN PRN Reason: NEEDED PER PROVIDER ORDERS Sodium Chloride (Sodium Chloride Flush 0.9% 10 Ml Syringe) 10 ml IVP 0100,0900,1700 [facility] Last Admin: 02/13/23 08:05 Dose: 10 ml Solifenacin (Solifenacin Succinate 5 Mg Tablet) 10 mg PO QPM [facility] Aspirin EC [Ecotrin] 81 mg PO DAILY 06/27/13 Vit A,C & E/Lutein/Minerals [Ocuvite with Lutein Tablet] 1 each PO DAILY 06/27/13 Cyanocobalamin (Vitamin B-12) [Vitamin B-12] 1,000 mcg PO DAILY 02/09/14 Cholecalciferol (Vitamin D3) [Vitamin D3] 2,000 units ORAL DAILY 05/03/14 levOCARNitine tartrate [l-Carnitine] 250 mg PO BID 05/09/18 polyethylene glycoL 3350 [Miralax] 17 gm PO DAILY 01/06/19 Finasteride 5 mg PO DAILY PM 02/21/19 Mirabegron [Myrbetriq] 50 mg PO DAILY PM 02/21/19 Famotidine [Pepcid] 20 mg PO BID 07/28/19 Phenytoin Infatab [Dilantin Infatab] 50 mg PO QPM 07/28/19 [place]-3/Dha/Epa/Fish Oil [Fish Oil 1,000 mg Softgel] 1,000 mg PO DAILY 11/29/21 Oxycodone Myristate [Xtampza ER] 13.5 mg PO TID 11/29/21 oxyCODONE [Roxicodone] 5 mg PO TID PRN 12/01/21 LORazepam [Ativan] 0.5 mg PO QID PRN 02/07/23 Oxycodone HCl 20 mg PO TID PRN 02/07/23 Phenytoin [Dilantin] 200 mg PO HS 02/07/23 Acetaminophen [Tylenol] 325 mg PO Q6H PRN 02/12/23 Objective - Vital Signs/Intake & Output Reviewed Vital Signs: Yes Vital Signs: Vital Signs x48h Temp Pulse Resp BP Pulse Ox 02/13/23 07:23 37 C 71 18 133/62 H 95 Intake & Output: Intake & Output 02/10/23 02/11/23 02/12/23 02/13/23 23:59 23:59 23:59 23:59 Intake Total 300 100 Output Total 550 850 Balance -250 -750 - Objective General Appearance: positive: No acute distress, Alert Eyes Bilateral: positive: Normal inspection, EOMI ENT: positive: ENT inspection nml, No signs of dehydration. negative: Dry mucous membranes Neck: positive: Nml inspection, No JVD, Trachea midline Respiratory: positive: Chest non-tender, No respiratory distress, Breath sounds nml. negative: Wheezes, Rales, Rhonchi Cardiovascular: positive: Regular rate & rhythm, No murmur, No gallop Peripheral Pulses: 2+ Radial (R), 2+ Radial (L) Abdomen: positive: No organomegaly, Nml bowel sounds, Tenderness (Epigastric and suprapubic TTP). negative: Guarding, Rebound Back: positive: Nml inspection Skin: positive: Color nml, No rash, Warm Extremities: positive: Non-tender, No pedal edema Neurologic/Psychiatric: positive: Oriented x3, CN's nml (2-12) - Lab Results Fish Bones: 02/13/23 06:10 02/13/23 06:10 Other Labs: Lab Results x24hrs 02/13/23 02/13/23 02/12/23 Range/Units 06:10 06:10 16:45 WBC 14.3 H (4.8-10.8) x10^3/uL RBC 2.66 L (4.70-6.10) 10^6/uL Hgb 8.7 L (14.0-18.0) g/dL Hct 25.7 L (42.0-52.0) % MCV 96.6 H (80.0-94.0) fL MCH 32.7 H (27.0-31.0) pg MCHC 33.9 (32.0-36.0) g/dL RDW 15.8 H (12.0-15.0) % Plt Count 501 H (130-450) 10^3/uL MPV 8.8 (7.4-11.4) fL Neut # (Auto) 11.2 H Lymph # (Auto) 0.6 L [place] # (Auto) 1.7 H Eos # (Auto) 0.0 Baso # (Auto) 0.1 Absolute Nucleated RBC 0.07 Total Counted Band Neuts % (Manual) (0 - 10) % Reactive Lymphs % (Man) % Abnorm Lymph % (Manual) % Metamyelocytes % ( - 0) % Myelocytes % ( - 0) % Nucleated RBC % 0.5 Neutrophils # (Manual) (1.5-6.6) 10^3/uL Lymphocytes # (Manual) (1.5-3.5) 10^3/uL Monocytes # (Manual) (0.0-1.0) 10^3/uL Eosinophils # (Manual) (0-0.7) 10^3/uL Basophils # (Manual) (0-0.1) 10^3/uL Nucleated RBCs % Differential Comment Manual Slide Review Indicated RBC Morph Micro Appear 3+ ANISOCYTOSIS (NORMAL) Sodium 139 (135-145) mmol/L Potassium 3.7 (3.5-5.0) mmol/L Chloride 104 (101-111) mmol/L Carbon Dioxide 25 (21-32) mmol/L Anion Gap 10.0 (6-13) BUN 12 (6-20) mg/dL Creatinine 0.5 L (0.6-1.2) mg/dL Estimated GFR (MDRD) 159 (>89) Glucose 88 (70-100) mg/dL Lactic Acid 0.6 (0.5-2.2) mmol/L Calcium 8.9 (8.5-10.3) mg/dL Total Bilirubin 0.6 (0.2-1.0) mg/dL AST 24 (10-42) IU/L ALT 31 (10-60) IU/L Alkaline Phosphatase 144 H (42-121) IU/L Total Protein 5.6 L (6.7-8.2) g/dL Albumin 2.5 L (3.2-5.5) g/dL Globulin 3.1 (2.1-4.2) g/dL Albumin/Globulin Ratio 0.8 L (1.0-2.2) Lipase 102 H (22-51) U/L Urine Color Urine Clarity (CLEAR) Urine pH (5.0-7.5) PH Ur Specific Roland (1.002-1.030) Urine Protein (NEGATIVE) mg/dL Urine Glucose (UA) (NEGATIVE) mg/dL Urine Ketones (NEGATIVE) mg/dL Urine Occult Blood (NEGATIVE) Urine Nitrite (NEGATIVE) Urine Bilirubin (NEGATIVE) Urine Urobilinogen (NORMAL) E.U./dL Ur Leukocyte Esterase (NEGATIVE) Urine RBC (0-5) /HPF Urine WBC (0-3) /HPF Ur Squamous Epith Cells (<= Few) Urine Bacteria (None Seen) /HPF Ur Microscopic Review Urine Culture Comments 02/12/23 02/12/23 02/12/23 Range/Units 14:06 14:06 13:30 WBC 13.3 H (4.8-10.8) x10^3/uL RBC 2.77 L (4.70-6.10) 10^6/uL Hgb 9.2 L (14.0-18.0) g/dL Hct 26.9 L (42.0-52.0) % MCV 97.1 H (80.0-94.0) fL MCH 33.2 H (27.0-31.0) pg MCHC 34.2 (32.0-36.0) g/dL RDW 15.5 H (12.0-15.0) % Plt Count 493 H (130-450) 10^3/uL MPV 9.0 (7.4-11.4) fL Neut # (Auto) Not Reportable Lymph # (Auto) Not Reportable [place] # (Auto) Not Reportable Eos # (Auto) Not Reportable Baso # (Auto) Not Reportable Absolute Nucleated RBC Not Reportable Total Counted 100 Band Neuts % (Manual) 17 H (0 - 10) % Reactive Lymphs % (Man) 1 % Abnorm Lymph % (Manual) 0 % Metamyelocytes % 1 H ( - 0) % Myelocytes % 3 H ( - 0) % Nucleated RBC % Not Reportable Neutrophils # (Manual) 10.2 H (1.5-6.6) 10^3/uL Lymphocytes # (Manual) 0.9 L (1.5-3.5) 10^3/uL Monocytes # (Manual) 1.6 H (0.0-1.0) 10^3/uL Eosinophils # (Manual) 0.0 (0-0.7) 10^3/uL Basophils # (Manual) 0.0 (0-0.1) 10^3/uL Nucleated RBCs 1 % Differential Comment MANUAL DIFFERENTIAL Manual Slide Review Indicated RBC Morph Micro Appear 4+ ANISOCYTOSIS (NORMAL) Sodium 136 (135-145) mmol/L Potassium 3.8 (3.5-5.0) mmol/L Chloride 101 (101-111) mmol/L Carbon Dioxide 26 (21-32) mmol/L Anion Gap 9.0 (6-13) BUN 16 (6-20) mg/dL Creatinine 0.7 (0.6-1.2) mg/dL Estimated GFR (MDRD) 108 (>89) Glucose 123 H (70-100) mg/dL Lactic Acid (0.5-2.2) mmol/L Calcium 9.3 (8.5-10.3) mg/dL Total Bilirubin 0.5 (0.2-1.0) mg/dL AST 29 (10-42) IU/L ALT 37 (10-60) IU/L Alkaline Phosphatase 140 H (42-121) IU/L Total Protein 6.3 L (6.7-8.2) g/dL Albumin 3.0 L (3.2-5.5) g/dL Globulin 3.3 (2.1-4.2) g/dL Albumin/Globulin Ratio 0.9 L (1.0-2.2) Lipase 211 H (22-51) U/L Urine Color DARK YELLOW Urine Clarity SL. CLOUDY (CLEAR) Urine pH 6.5 (5.0-7.5) PH Ur Specific Roland 1.025 (1.002-1.030) Urine Protein >=300 H (NEGATIVE) mg/dL Urine Glucose (UA) 100 H (NEGATIVE) mg/dL Urine Ketones TRACE (NEGATIVE) mg/dL Urine Occult Blood LARGE H (NEGATIVE) Urine Nitrite NEGATIVE (NEGATIVE) Urine Bilirubin NEGATIVE (NEGATIVE) Urine Urobilinogen 0.2 (NORMAL) (NORMAL) E.U./dL Ur Leukocyte Esterase SMALL H (NEGATIVE) Urine RBC TNTC H (0-5) /HPF Urine WBC 11-25 H (0-3) /HPF Ur Squamous Epith Cells NONE SEEN (<= Few) Urine Bacteria Few (None Seen) /HPF Ur Microscopic Review INDICATED Urine Culture Comments INDICATED ABX Reporting Has patient been on IV antibiotics over the past 48 hours?: Yes Sepsis Event Note (H) - Evaluation Current Stage of Sepsis: Ruled out Assessment/Plan - Problem List (1) Abdominal pain Impression: 02/12: Likely from pancreatitis cause not known, clears for now, repeat labs in am may have some colitis from RT, also has UTI intra abdominal infection can not be ruled out as has new bandemia and UTI will started on Rocephin and Flagyl follow up cultures and repeat labs in am. IvF, pain meds and place bobby to assist with urination and bladder emptying. 02/13: abdominal pain could be due to 3 disease processes: pancreatitis, colitis, or cystitis. These will be addressed individually below. Pt attributes the pain mainly to his bladder cancer. He points to his suprapubic area when asked where the pain is. He states today the pain is less than yesterday, and he feels much better. Pt shared with nursing staff that he did not finish the antibiotics he was discharged with on 02/10 because they caused an upset stomach. He is currently having loose stools, and denies hematochezia. Repeat labs show an increase in leukocytosis 14.3, and increased platelets 501. I believe this indicates progression of his infection. He will continue on his antibiotic regimen, and we will reassess tomorrow. Qualifiers: Qualified Code(s): R10.84 - Generalized abdominal pain (2) Pancreatitis, acute Impression: Lipase levels have decreased: 02/12 - 211 to 02/13 - 102. 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 I believe he will benefit from continuing IV fluids and pain management with Morphine 2 mg every 6 hours as needed. He is only had 1 dose last night. Roxicodone 20 mg every 6 hours as needed and he has had 3 doses between yesterday and today. Qualifiers: Pancreatitis type: unspecified pancreatitis type Acute pancreatitis complication: unspecified Qualified Code(s): K85.90 - Acute pancreatitis without necrosis or infection, unspecified (3) Cystitis Impression: 02/12:Patient has been undergoing treatment for bladder cancer with [facility], and he sees Dr. Navin Chiu, recommended second opinion for his bladder cancer, has completed traditional therapy and plan for possible immunotherapy. 02/13: Pt's UA findings are constant with cystitis: + leukocyte esterase, elevated WBC, and trace blood. His CBC reveals a leukocytosis, which could be due to the urinary infection. He is receiving chemotherapy and radiation for bladder cancer. I will continue IV Rocephin. (4) Colitis Impression: 02/12: Patient was started on IV cefepime (02/05) and IV vanco dose given (02/06) in the ED. Then after the admission CT abd showed thickening of the sigmoid colon within the anterior pelvis, consistent with infection, ischemia, or inflammation. He was started on IV Rocephin and Flagyl on 02/12. 02/13: I will continue IV Rocephin and flagyl and continue to monitor for improvement. 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 02/13: His platelet count has increased from 493 on 02/12 to 501 today, 02/13. I believe the thrombocytosis is due to various factors, including his bladder cancer and current infection. (6) Paroxysmal atrial fibrillation Impression: 02/12: Pt was previously advised that he needs a stress test and Cardiology evaluation for CAD. He is already on an aspirin daily. Due to his Hx of ITP and brain bleed, no anticoagulants were started. 02/13: Pt shares he first had Afib in 2001 when he was diagnosed with ITP. He does not recall if he was prescribed medication. During his previous ED admission, he was cardioverted by ER provider due to new onset Afib, and discharged with toprol XL 12.5 mg qd. He is to continue Toprol XL 12.5 mg daily. An ECHO will be ordered to have a formal assessment. (7) Bladder cancer Impression: 02/12: Patient has been undergoing treatment for bladder cancer consisting of chemotherapy and radiation therapy with Dr. Navin Chiu at [facility]. His most recent treatment date was 02/05. He has a chemo port. Follow up wtih Dr Chiu . 02/13: Per pt, he was diagnosed on 10/18/22. He has had 4 sessions of chemotherapy since. He does not recall the medications used for chemo. He states that radiation has been "doing more harm than good." He believes his abdominal pain is due to his bladder cancer. Side effects of chemo include pain in rectum, and bladder, and fatigue. He is to follow-up with Dr. Chiu upon discharge. Qualifiers: Bladder location: unspecified site Qualified Code(s): C67.9 - Malignant neoplasm of bladder, unspecified (8) Elevated blood pressure reading Impression: 02/13: Pt has had systolic bp's in the 180s and 170s yesterday. Today he had a normal bp reading, and then an elevated systolic of 133. I believe his high readings are due to the disease process. I believe the toprol-XL being given to him will also help stabilize his bp.
[2023-02-13] MEDS ORDERED: [UNRECOGNIZED DRUG - OTHER] PO SCH (09:00)
[2023-02-13] MEDS ORDERED: CHOLECALCIFEROL 2000 UNIT ORAL SCH (09:00)
[2023-02-13] MEDS ORDERED: FISH OIL PO SCH (09:00)
[2023-02-13] MEDS ORDERED: LACTOBACILLUS ACIDOPHILUS PO SCH (09:00)
[2023-02-13] MEDS ORDERED: EPA PO SCH (09:00)
[2023-02-13] MEDS ORDERED: METOPROLOL SUCCINATE 25 MG TABLET PO SCH (09:00)
[2023-02-13] MEDS ORDERED: CYANOCOBALAMIN 1000 MCG PO SCH (09:00)
[2023-02-13] MEDS ORDERED: OMEGA PO SCH (09:00)
[2023-02-13] MEDS ORDERED: DHA PO SCH (09:00)
--- NOTE | 2023-02-13 11:34 | PHARMACY PROGRESS NOTE ---
- Best Possible Medication History Admit Date and Time: 02/12/232001 Processed by: Nursing As the person ultimately responsible for medication therapy, providers are able to order a medication from an existing home medication list in [facility] via the "Reconcile Routine" prior to Confirmation of that medication by director of operations support. Such practice is discouraged except when the physician, in their clinical judgment, deems that a medical need exists for a medication without regard to previous use.
[2023-02-13] MEDS: MORPHINE 2 MG/ML CARPUJECT IVP PRN (16:59)
[2023-02-13] MEDS: SODIUM CHLORIDE 0.9% 1,000 ML IV SCH ×2 (17:40→21:26)
[2023-02-13] MEDS: ONDANSETRON 4 MG/2 ML VIAL IVP PRN (18:49)
[2023-02-13] MEDS: FINASTERIDE 5 MG TABLET PO SCH (21:19)
[2023-02-13] MEDS: SOLIFENACIN SUCCINATE 5 MG TABLET PO SCH (21:20)
[2023-02-13] MEDS: PHENYTOIN ER 100 MG CAPSULE PO SCH (21:45)
[2023-02-13] MEDS: PHENYTOIN CHEW 50 MG TABLET PO SCH (21:45)
[2023-02-13] MEDS: ACETAMINOPHEN 325 MG TABLET PO PRN (21:55)
[2023-02-14] MEDS: oxyCODONE 5 MG TABLET PO PRN ×6 (00:46→22:10)
[2023-02-14] MEDS: metroNIDAZOLE 500 MG/100 ML 500 MG/100 ML BAG IV SCH ×3 (04:05→20:17)
[2023-02-14] MEDS: PHENAZOPYRIDINE 100 MG TABLET PO SCH ×3 (06:00→21:51)
[2023-02-14] MEDS: METOPROLOL SUCCINATE 25 MG TABLET PO SCH (08:51)
[2023-02-14] MEDS: LACTOBACILLUS RHAMNOSUS GG CAPSULE PO SCH (08:52)
[2023-02-14] MEDS: OMEGA-3 ACID ETHYL ESTERS 1 GM CAPSULE PO SCH (08:52)
[2023-02-14] MEDS: ASPIRIN EC 81 MG TABLET PO SCH (08:52)
[2023-02-14] MEDS: FAMOTIDINE 20 MG TABLET PO SCH ×2 (08:52→21:51)
[2023-02-14] MEDS: cefTRIAXone 1 GM in SODIUM CHLORIDE 0.9% MINIBAG 100 ML IV SCH (08:53)
[2023-02-14] MEDS: SIMETHICONE CHEW 80 MG TABLET PO SCH ×4 (08:53→21:51)
[2023-02-14] MEDS: CHOLECALCIFEROL 25 MCG TABLET PO SCH (08:53)
[2023-02-14] MEDS: CYANOCOBALAMIN 500 MCG TABLET PO SCH (08:53)
[2023-02-14] MEDS: ACETAMINOPHEN 325 MG TABLET PO PRN ×3 (09:01→21:16)
[2023-02-14] MEDS: SODIUM CHLORIDE FLUSH 0.9% 10 ML SYRINGE IVP SCH ×3 (09:03→23:58)
[2023-02-14] MEDS: polyethylene glycoL 3350 17 GM PACKET PO SCH (10:01)
[2023-02-14] MEDS: oxyCODONE ER 10 MG TABLET PO SCH ×2 (11:28→21:16)
[2023-02-14] MEDS: DICLOFENAC SODIUM 1% GEL 50 GM TUBE TOP PRN (12:46)
[2023-02-14] MEDS: SODIUM CHLORIDE FLUSH 0.9% 10 ML SYRINGE IVP PRN (14:41)
[2023-02-14] MEDS: ONDANSETRON 4 MG/2 ML VIAL IVP PRN ×2 (14:41→21:16)
[2023-02-14 14:42] LABS: BASOPHILS % (AUTO) 0.2 %; HCT - HEMATOCRIT 25.6 % (42.0-52.0); HGB - HEMOGLOBIN 8.8 g/dL (14.0-18.0); LYMPHOCYTES % (AUTO) 2.4 %; MEAN CORPUSCULAR HEMOGLOBIN 33.3 pg (27.0-31.0); MEAN CORPUSCULAR HGB CONC 34.4 g/dL (32.0-36.0); MONOCYTES % (AUTO) 10.7 %; NEUTROPHILS % (AUTO) 84.6 %; PLT - PLATELET COUNT 585 10^3/uL (130-450); RED BLOOD COUNT 2.64 10^6/uL (4.70-6.10); RED CELL DISTRIBUTION WIDTH 16.3 % (12.0-15.0); WHITE BLOOD COUNT 16.8 x10^3/uL (4.8-10.8)
[2023-02-14 14:49] LABS: ABNORMAL LYMPHS % (MANUAL) 0 %
[2023-02-14 14:50] LABS: ALBUMIN 2.5 g/dL (3.2-5.5); ALBUMIN/GLOBULIN RATIO 0.8 (1.0-2.2); BILIRUBIN,TOTAL 0.4 mg/dL (0.2-1.0); CALCIUM 8.6 mg/dL (8.5-10.3); CREATININE 0.6 mg/dL (0.6-1.2); POTASSIUM 3.7 mmol/L (3.5-5.0); TOTAL PROTEIN 5.6 g/dL (6.7-8.2)
[2023-02-14 15:24] LABS: BAND NEUTROPHILS % (MANUAL) 4 %; LYMPHOCYTES # (MANUAL) 0.2 10^3/uL (1.5-3.5); LYMPHOCYTES % (MANUAL) 1 %; MONOCYTES # (MANUAL) 0.8 10^3/uL (0.0-1.0); MYELOCYTES % (MANUAL) 1 %; NEUTROPHILS # (MANUAL) 15.6 10^3/uL (1.5-6.6)
[2023-02-14 15:25] LABS: DIFFERENTIAL COMMENT MANUAL DIFFERENTIAL; PLATELET ESTIMATE, MANUAL INCREASED (>450,000) (NORMAL); PLATELET MORPHOLOGY 1+ GIANT PLATELETS (NORMAL)
--- NOTE | 2023-02-14 15:58 | PROVIDER PROGRESS NOTE ---
Progress Note Subjective: Patient in mild pain distress Objective: Vital signs reviewed General: No acute distress Head: Normocephalic atraumatic Eyes: PERRLA DC EOMI Mouth: No lesions Neck: Supple Chest: Clear to auscultation Cor: Regular rate and rhythm S1-S2 Abdomen: Soft mild tenderness in the lower pelvic area Extremities: No pedal edema Neuro: Alert and oriented x3, motor strength intact bilaterally Psych: Mood and affect are appropriate Labs and imaging results reviewed - Problem List (1) Abdominal pain Impression: 02/12: Likely from pancreatitis cause not known, clears for now, repeat labs in am may have some colitis from RT, also has UTI intra abdominal infection can not be ruled out as has new bandemia and UTI will started on Rocephin and Flagyl follow up cultures and repeat labs in am. IvF, pain meds and place bobby to assist with urination and bladder emptying. 02/13: abdominal pain could be due to 3 disease processes: pancreatitis, colitis, or cystitis. These will be addressed individually below. Pt attributes the pain mainly to his bladder cancer. He points to his suprapubic area when asked where the pain is. He states today the pain is less than yesterday, and he feels much better. Pt shared with nursing staff that he did not finish the antibiotics he was discharged with on 02/10 because they caused an upset stomach. He is currently having loose stools, and denies hematochezia. Repeat labs show an increase in leukocytosis 14.3, and increased platelets 501. I believe this indicates progression of his infection. He will continue on his antibiotic regimen, and we will reassess tomorrow. Qualifiers: Qualified Code(s): R10.84 - Generalized abdominal pain (2) Pancreatitis, acute Impression: Lipase levels have decreased: 02/12 - 211 to 02/13 - 102. 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 I believe he will benefit from continuing IV fluids and pain management with Morphine 2 mg every 6 hours as needed. He is only had 1 dose last night. Roxicodone 20 mg every 6 hours as needed and he has had 3 doses between yesterday and today. Qualifiers: Pancreatitis type: unspecified pancreatitis type Acute pancreatitis complication: unspecified Qualified Code(s): K85.90 - Acute pancreatitis without necrosis or infection, unspecified (3) Cystitis Impression: 02/12:Patient has been undergoing treatment for bladder cancer with [facility], and he sees Dr. Navin Chiu, recommended second opinion for his bladder cancer, has completed traditional therapy and plan for possible immunotherapy. 02/13: Pt's UA findings are constant with cystitis: + leukocyte esterase, elevated WBC, and trace blood. His CBC reveals a leukocytosis, which could be due to the urinary infection. He is receiving chemotherapy and radiation for bladder cancer. I will continue IV Rocephin. (4) Colitis Impression: 02/12: Patient was started on IV cefepime (02/05) and IV vanco dose given (02/06) in the ED. Then after the admission CT abd showed thickening of the sigmoid colon within the anterior pelvis, consistent with infection, ischemia, or inflammation. He was started on IV Rocephin and Flagyl on 02/12. 02/13: I will continue IV Rocephin and flagyl and continue to monitor for improvement. 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 02/13: His platelet count has increased from 493 on 02/12 to 501 today, 02/13. I believe the thrombocytosis is due to various factors, including his bladder cancer and current infection. (6) Paroxysmal atrial fibrillation Impression: 02/12: Pt was previously advised that he needs a stress test and Cardiology evaluation for CAD. He is already on an aspirin daily. Due to his Hx of ITP and brain bleed, no anticoagulants were started. 02/13: Pt shares he first had Afib in 2001 when he was diagnosed with ITP. He does not recall if he was prescribed medication. During his previous ED admission, he was cardioverted by ER provider due to new onset Afib, and discharged with toprol XL 12.5 mg qd. He is to continue Toprol XL 12.5 mg daily. An ECHO will be ordered to have a formal assessment. (7) Bladder cancer Impression: 02/12: Patient has been undergoing treatment for bladder cancer consisting of chemotherapy and radiation therapy with Dr. Navin Chiu at [facility]. His most recent treatment date was 02/05. He has a chemo port. Follow up wtih Dr Chiu . 02/13: Per pt, he was diagnosed on 10/18/22. He has had 4 sessions of chemotherapy since. He does not recall the medications used for chemo. He states that radiation has been "doing more harm than good." He believes his abdominal pain is due to his bladder cancer. Side effects of chemo include pain in rectum, and bladder, and fatigue. He is to follow-up with Dr. Chiu upon discharge. Qualifiers: Bladder location: unspecified site Qualified Code(s): C67.9 - Malignant neoplasm of bladder, unspecified (8) Elevated blood pressure reading Impression: 02/13: Pt has had systolic bp's in the 180s and 170s yesterday. Today he had a normal bp reading, and then an elevated systolic of 133. I believe his high readings are due to the disease process. I believe the toprol-XL being given to him will also help stabilize his bp.
[2023-02-14] MEDS: FINASTERIDE 5 MG TABLET PO SCH (21:51)
[2023-02-14] MEDS: SOLIFENACIN SUCCINATE 5 MG TABLET PO SCH (21:51)
[2023-02-14] MEDS: PHENYTOIN ER 100 MG CAPSULE PO SCH (21:52)
[2023-02-14] MEDS: PHENYTOIN CHEW 50 MG TABLET PO SCH (21:52)
[2023-02-14] MEDS: SODIUM CHLORIDE 0.9% 1,000 ML IV SCH (23:57)
[2023-02-15] MEDS: ACETAMINOPHEN 325 MG TABLET PO PRN ×3 (03:07→21:32)
[2023-02-15] MEDS: oxyCODONE 5 MG TABLET PO PRN ×3 (03:07→13:43)
[2023-02-15] MEDS: metroNIDAZOLE 500 MG/100 ML 500 MG/100 ML BAG IV SCH ×3 (04:16→19:48)
[2023-02-15 05:36] LABS: ALBUMIN 2.4 g/dL (3.2-5.5); ALBUMIN/GLOBULIN RATIO 0.8 (1.0-2.2); BILIRUBIN,TOTAL 0.5 mg/dL (0.2-1.0); CALCIUM 8.6 mg/dL (8.5-10.3); CREATININE 0.6 mg/dL (0.6-1.2); POTASSIUM 3.6 mmol/L (3.5-5.0); TOTAL PROTEIN 5.3 g/dL (6.7-8.2)
[2023-02-15] MEDS: PHENAZOPYRIDINE 100 MG TABLET PO SCH ×3 (06:03→21:35)
[2023-02-15] MEDS: LACTOBACILLUS RHAMNOSUS GG CAPSULE PO SCH (08:07)
[2023-02-15] MEDS: CYANOCOBALAMIN 500 MCG TABLET PO SCH (08:07)
[2023-02-15] MEDS: oxyCODONE ER 10 MG TABLET PO SCH ×2 (08:07→21:03)
[2023-02-15] MEDS: OMEGA-3 ACID ETHYL ESTERS 1 GM CAPSULE PO SCH (08:07)
[2023-02-15] MEDS: SIMETHICONE CHEW 80 MG TABLET PO SCH ×4 (08:07→21:36)
[2023-02-15] MEDS: cefTRIAXone 1 GM in SODIUM CHLORIDE 0.9% MINIBAG 100 ML IV SCH (08:07)
[2023-02-15] MEDS: FAMOTIDINE 20 MG TABLET PO SCH ×2 (08:08→21:35)
[2023-02-15] MEDS: polyethylene glycoL 3350 17 GM PACKET PO SCH (08:08)
[2023-02-15] MEDS: ASPIRIN EC 81 MG TABLET PO SCH (08:08)
[2023-02-15] MEDS: CHOLECALCIFEROL 25 MCG TABLET PO SCH (08:08)
[2023-02-15] MEDS: ONDANSETRON 4 MG/2 ML VIAL IVP PRN ×3 (08:08→21:03)
[2023-02-15] MEDS: METOPROLOL SUCCINATE 25 MG TABLET PO SCH (08:19)
[2023-02-15] MEDS: SODIUM CHLORIDE FLUSH 0.9% 10 ML SYRINGE IVP SCH ×2 (10:25→15:34)
[2023-02-15] MEDS: SODIUM CHLORIDE 0.9% 1,000 ML IV SCH (16:41)
[2023-02-15] MEDS: FINASTERIDE 5 MG TABLET PO SCH (21:32)
[2023-02-15] MEDS: PHENYTOIN ER 100 MG CAPSULE PO SCH (21:33)
[2023-02-15] MEDS: PHENYTOIN CHEW 50 MG TABLET PO SCH (21:33)
[2023-02-15] MEDS: SOLIFENACIN SUCCINATE 5 MG TABLET PO SCH (21:34)
[2023-02-16] MEDS: oxyCODONE 5 MG TABLET PO PRN ×5 (00:07→23:07)
[2023-02-16] MEDS: SODIUM CHLORIDE FLUSH 0.9% 10 ML SYRINGE IVP SCH ×3 (00:08→15:37)
[2023-02-16] MEDS: metroNIDAZOLE 500 MG/100 ML 500 MG/100 ML BAG IV SCH ×3 (03:50→20:00)
[2023-02-16] MEDS: PHENAZOPYRIDINE 100 MG TABLET PO SCH ×3 (06:30→21:18)
[2023-02-16 06:51] LABS: ALBUMIN 2.3 g/dL (3.2-5.5); ALBUMIN/GLOBULIN RATIO 0.8 (1.0-2.2); BILIRUBIN,TOTAL 0.4 mg/dL (0.2-1.0); CALCIUM 8.4 mg/dL (8.5-10.3); CREATININE 0.5 mg/dL (0.6-1.2); POTASSIUM 3.5 mmol/L (3.5-5.0); TOTAL PROTEIN 5.1 g/dL (6.7-8.2)
[2023-02-16] MEDS: ASPIRIN EC 81 MG TABLET PO SCH (08:49)
[2023-02-16] MEDS: LACTOBACILLUS RHAMNOSUS GG CAPSULE PO SCH (08:49)
[2023-02-16] MEDS: SIMETHICONE CHEW 80 MG TABLET PO SCH ×4 (08:49→21:21)
[2023-02-16] MEDS: oxyCODONE ER 10 MG TABLET PO SCH ×2 (08:49→21:20)
[2023-02-16] MEDS: METOPROLOL SUCCINATE 25 MG TABLET PO SCH (08:49)
[2023-02-16] MEDS: CYANOCOBALAMIN 500 MCG TABLET PO SCH (08:49)
[2023-02-16] MEDS: FAMOTIDINE 20 MG TABLET PO SCH ×2 (08:50→21:20)
[2023-02-16] MEDS: CHOLECALCIFEROL 25 MCG TABLET PO SCH (08:50)
[2023-02-16] MEDS: cefTRIAXone 1 GM in SODIUM CHLORIDE 0.9% MINIBAG 100 ML IV SCH (08:50)
[2023-02-16] MEDS: polyethylene glycoL 3350 17 GM PACKET PO SCH (08:53)
[2023-02-16] MEDS: ONDANSETRON 4 MG/2 ML VIAL IVP PRN ×2 (08:56→19:09)
[2023-02-16] MEDS: OMEGA-3 ACID ETHYL ESTERS 1 GM CAPSULE PO SCH (08:56)
[2023-02-16] MEDS: ACETAMINOPHEN 325 MG TABLET PO PRN ×2 (12:16→18:40)
--- NOTE | 2023-02-16 13:20 | PROVIDER PROGRESS NOTE ---
Progress Note Assessment/Plan - Problem List (1) Abdominal pain Qualifiers: Abdominal location: generalized Qualified Code(s): R10.84 - Generalized abdominal pain Assessment/Plan: Abdominal pain is improving over the past few days. He denies any right upper quadrant pain at this time only notes some lower abdominal pain. He notes that his current pain medication regimen seems to be helping. (2) Pancreatitis, acute Qualifiers: Pancreatitis type: unspecified pancreatitis type Acute pancreatitis complication: unspecified Qualified Code(s): K85.90 - Acute pancreatitis without necrosis or infection, unspecified (3) Colitis Assessment/Plan: There is concern of a sigmoid colitis so we will continue with his current antibiotic regimen of IV Rocephin and IV Flagyl which was started on February 12 (4) Cystitis Assessment/Plan: Urine culture did not show any infection suspect this is related to treatment for bladder cancer at scheduled clinic with Dr. Fajardo. He has completed traditional therapy and possibly will start immunotherapy. 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 (6) Paroxysmal atrial fibrillation Assessment/Plan: History of atrial fibrillation diagnosed in 2001. Continue with current medication regimen. Echocardiogram ordered for formal assessment. (7) Bladder cancer Qualifiers: Bladder location: unspecified site Qualified Code(s): C67.9 - Malignant neoplasm of bladder, unspecified Assessment/Plan: Patient was diagnosed October 2022. He has had chemotherapy. He does admit to having abdominal pain due to his bladder cancer. - Current Meds Current Meds: Current Medications Generic Name Dose Route Start Last Admin Trade Name Freq PRN Reason Stop Dose Admin Acetaminophen 650 mg 02/14/23 12:01 02/15/23 13:43 Acetaminophen 325 Mg Tablet PO 650 mg Q6H PRN Administration PRN PAIN &/OR FEVER Aspirin 81 mg 02/13/23 09:00 02/15/23 08:08 Aspirin Ec 81 Mg Tablet PO 81 mg DAILY CRISTIANO Administration Cholecalciferol 50 mcg 02/13/23 09:00 02/15/23 08:08 Cholecalciferol 25 Mcg Tablet PO 50 mcg DAILY CRISTIANO Administration Cyanocobalamin 1,000 mcg 02/13/23 09:00 02/15/23 08:07 Cyanocobalamin 500 Mcg Tablet PO 1,000 mcg DAILY CRISTIANO Administration Diclofenac Sodium 2 gm 02/14/23 12:06 02/14/23 12:46 Diclofenac Sodium 1% Gel 50 Gm Tube TOP 2 gm QID PRN Administration Mild Pain (Level 1-3) Famotidine 20 mg 02/12/23 21:00 02/15/23 08:08 Famotidine 20 Mg Tablet PO 20 mg BID CRISTIANO Administration Finasteride 5 mg 02/12/23 21:00 02/14/23 21:51 Finasteride 5 Mg Tablet PO 5 mg HS CRISTIANO Administration Sodium Chloride 1,000 mls @ 50 mls/hr 02/12/23 21:00 02/15/23 16:41 Normal Saline 0.9% IV 50 mls/hr .Q20H CRISTIANO Administration Metronidazole 500 mg in 100 mls @ 100 mls/hr 02/13/23 04:00 02/15/23 13:15 Flagyl 500 Mg/100 Ml IV Infused Q8H CRISTIANO Infusion Ceftriaxone Sodium 1 gm/ 100 mls @ 200 mls/hr 02/13/23 09:00 02/15/23 08:37 Sodium Chloride IV Infused DAILY CRISTIANO Infusion Lactobacillus Rhamnosus 1 cap 02/13/23 09:00 02/15/23 08:07 Lactobacillus Rhamnosus Gg Capsule PO 1 cap DAILY CRISTIANO Administration Lorazepam 0.5 mg 02/12/23 22:04 02/14/23 00:54 Lorazepam 2 Mg/Ml Vial IVP 0.5 mg HS PRN Administration Anxiety Metoprolol Succinate 25 mg 02/12/23 22:00 02/15/23 08:19 Metoprolol Succinate 25 Mg Tablet PO 25 mg DAILY CRISTIANO Administration Morphine Sulfate 2 mg 02/12/23 20:02 02/13/23 16:59 Morphine 2 Mg/Ml Carpuject IVP 2 mg Q6HR PRN Administration Pain 8 to 10 Multi-Ingredient Ointment 1 applic 02/12/23 22:08 02/13/23 11:48 Zinc Oxide 20% Oint 30 Gm Tube TOP 1 applic PRN PRN Administration Skin Care [id number] Ethyl Esters 1 gm 02/13/23 09:00 02/15/23 08:07 [place]-3 Acid Ethyl Esters 1 Gm Capsule PO 1 gm DAILY CRISTIANO Administration Ondansetron HCl 4 mg 02/12/23 20:02 02/15/23 15:34 Ondansetron 4 Mg/2 Ml Vial IVP 4 mg Q6HR PRN Administration Nausea / Vomiting Oxycodone HCl 20 mg 02/12/23 20:50 02/15/23 13:43 Oxycodone 5 Mg Tablet PO 20 mg TID PRN Administration PAIN 5-7 Oxycodone HCl 5 mg 02/12/23 23:38 02/15/23 03:07 Oxycodone 5 Mg Tablet PO 5 mg TID PRN Administration PAIN 1-4 Oxycodone HCl 10 mg 02/14/23 12:00 02/15/23 08:07 Oxycodone Er 10 Mg Tablet PO 10 mg BID CRISTIANO Administration Phenazopyridine HCl 100 mg 02/12/23 23:00 02/15/23 14:18 Phenazopyridine 100 Mg Tablet PO 100 mg TID CRISTIANO Administration Phenytoin Sodium 50 mg 02/12/23 21:00 02/14/23 21:52 Phenytoin Chew 50 Mg Tablet PO 50 mg QPM CRISTIANO Administration Phenytoin Sodium 200 mg 02/12/23 21:00 02/14/23 21:52 Phenytoin Er 100 Mg Capsule PO 200 mg HS CRISTIANO Administration Polyethylene Glycol 17 gm 02/13/23 09:00 02/15/23 08:08 Polyethylene Glycol 3350 17 Gm Packet PO 17 gm DAILY CRISTIANO Administration Simethicone 80 mg 02/12/23 21:00 02/15/23 16:41 Simethicone Chew 80 Mg Tablet PO 80 mg QID CRISTIANO Administration Sodium Chloride 10 ml 02/12/23 20:02 02/14/23 14:41 Sodium Chloride Flush 0.9% 10 Ml Syringe IVP 10 ml PRN PRN Administration NEEDED PER PROVIDER ORDERS Sodium Chloride 10 ml 02/13/23 01:00 02/15/23 15:34 Sodium Chloride Flush 0.9% 10 Ml Syringe IVP 10 ml 0100,0900,1700 CRISTIANO Administration Solifenacin 10 mg 02/13/23 21:00 02/14/23 21:51 Solifenacin Succinate 5 Mg Tablet PO 10 mg QPM CRISTIANO Administration - Lab Result Fish Bone Diagrams: 02/14/23 14:15 02/15/23 05:15 - Additional Planning My Orders: My Active Orders 02/16/23 05:00 CMP [COMPREHENSIVE METABOLIC PANEL] [CHEM] DAILYLAB LIPASE [CHEM] DAILYLAB 02/17/23 05:00 CMP [COMPREHENSIVE METABOLIC PANEL] [CHEM] DAILYLAB LIPASE [CHEM] DAILYLAB 02/18/23 05:00 CBC - COMP BLD CT W/AUTO DIFF [HEME] DAILYLAB CMP [COMPREHENSIVE METABOLIC PANEL] [CHEM] DAILYLAB LIPASE [CHEM] DAILYLAB Subjective - Subjective Patient Reports: Feeling Better, Resting Comfortably Objective Vital Signs: Vital Signs - 24 hr 02/14/23 02/15/23 02/15/23 23:00 08:00 16:00 Temperature 36.6 C 36.4 C L 36.8 C Heart Rate [ 65 66 66 Brachial] Respiratory 12 16 18 Rate Blood Pressure 114/58 L [Left Brachial artery] Blood Pressure 143/65 H 149/72 H [Right Brachial artery] O2 Saturation 92 93 96 Oxygen O2 Source Room air I&O (Last 24 Hrs): Intake and Output Totals x24h 02/13/23 02/14/23 02/15/23 23:59 23:59 23:59 Intake Total 2400 3000.0 1676.667 Output Total 2700 2700 1050 Balance -300 300.0 626.667 General: Alert, Oriented x3, Cooperative HEENT: Atraumatic Neuro: Alert Cardiovascular: Regular rate Respiratory: No respiratory distress Abdomen: Normal bowel sounds, Soft Extremities: No tenderness/swelling Skin: No rashes - Results Results: Laboratory Results WBC 16.8 x10^3/uL (4.8-10.8) H 02/14/23 14:15 RBC 2.64 10^6/uL (4.70-6.10) L 02/14/23 14:15 Hgb 8.8 g/dL (14.0-18.0) L 02/14/23 14:15 Hct 25.6 % (42.0-52.0) L 02/14/23 14:15 MCV 97.0 fL (80.0-94.0) H 02/14/23 14:15 MCH 33.3 pg (27.0-31.0) H 02/14/23 14:15 MCHC 34.4 g/dL (32.0-36.0) 02/14/23 14:15 RDW 16.3 % (12.0-15.0) H 02/14/23 14:15 Plt Count 585 10^3/uL (130-450) H 02/14/23 14:15 MPV 9.0 fL (7.4-11.4) 02/14/23 14:15 Neut # (Auto) Not Reportable 02/14/23 14:15 Lymph # (Auto) Not Reportable 02/14/23 14:15 [place] # (Auto) Not Reportable 02/14/23 14:15 Eos # (Auto) Not Reportable 02/14/23 14:15 Baso # (Auto) Not Reportable 02/14/23 14:15 Absolute Nucleated RBC Not Reportable 02/14/23 14:15 Total Counted 100 02/14/23 14:15 Band Neuts % (Manual) 4 % (0-10) 02/14/23 14:15 Reactive Lymphs % (Man) 1 % 02/12/23 14:06 Abnorm Lymph % (Manual) 0 % 02/14/23 14:15 Metamyelocytes % 1 % (-0) H 02/12/23 14:06 Myelocytes % 1 % (-0) H 02/14/23 14:15 Nucleated RBC % Not Reportable 02/14/23 14:15 Neutrophils # (Manual) 15.6 10^3/uL (1.5-6.6) H 02/14/23 14:15 Lymphocytes # (Manual) 0.2 10^3/uL (1.5-3.5) L 02/14/23 14:15 Monocytes # (Manual) 0.8 10^3/uL (0.0-1.0) 02/14/23 14:15 Eosinophils # (Manual) 0.0 10^3/uL (0-0.7) 02/14/23 14:15 Basophils # (Manual) 0.0 10^3/uL (0-0.1) 02/14/23 14:15 Nucleated RBCs 1 % 02/12/23 14:06 Differential Comment MANUAL DIFFERENTIAL 02/14/23 14:15 Manual Slide Review Indicated 02/13/23 06:10 Platelet Estimate INCREASED (>450,000) (NORMAL) 02/14/23 14:15 Platelet Morphology 1+ GIANT PLATELETS (NORMAL) 02/14/23 14:15 RBC Morph Micro Appear 2+ ANISOCYTOSIS (NORMAL) 1+ ACANTHOCYTES (NORMAL) 1+ SCHISTOCYTES (NORMAL) 1+ POLYCHROMASIA (NORMAL) 1+ RIOS JOLLY BODY (NORMAL) 02/14/23 14:15 RBC Morph Micro Appear 2+ ANISOCYTOSIS (NORMAL) 1+ ACANTHOCYTES (NORMAL) 1+ SCHISTOCYTES (NORMAL) 1+ POLYCHROMASIA (NORMAL) 1+ RIOS JOLLY BODY (NORMAL) 02/14/23 14:15 RBC Morph Micro Appear 2+ ANISOCYTOSIS (NORMAL) 1+ ACANTHOCYTES (NORMAL) 1+ SCHISTOCYTES (NORMAL) 1+ POLYCHROMASIA (NORMAL) 1+ RIOS JOLLY BODY (NORMAL) 02/14/23 14:15 RBC Morph Micro Appear 2+ ANISOCYTOSIS (NORMAL) 1+ ACANTHOCYTES (NORMAL) 1+ SCHISTOCYTES (NORMAL) 1+ POLYCHROMASIA (NORMAL) 1+ RIOS JOLLY BODY (NORMAL) 02/14/23 14:15 RBC Morph Micro Appear 2+ ANISOCYTOSIS (NORMAL) 1+ ACANTHOCYTES (NORMAL) 1+ SCHISTOCYTES (NORMAL) 1+ POLYCHROMASIA (NORMAL) 1+ RIOS JOLLY BODY (NORMAL) 02/14/23 14:15 Sodium 138 mmol/L (135-145) 02/15/23 05:15 Potassium 3.6 mmol/L (3.5-5.0) 02/15/23 05:15 Chloride 107 mmol/L (101-111) 02/15/23 05:15 Carbon Dioxide 27 mmol/L (21-32) 02/15/23 05:15 Anion Gap 4.0 (6-13) L 02/15/23 05:15 BUN 9 mg/dL (6-20) 02/15/23 05:15 Creatinine 0.6 mg/dL (0.6-1.2) 02/15/23 05:15 Estimated GFR (MDRD) 129 (>89) 02/15/23 05:15 Glucose 96 mg/dL (70-100) 02/15/23 05:15 Lactic Acid 0.6 mmol/L (0.5-2.2) 02/12/23 16:45 Calcium 8.6 mg/dL (8.5-10.3) 02/15/23 05:15 Total Bilirubin 0.5 mg/dL (0.2-1.0) 02/15/23 05:15 AST 40 IU/L (10-42) 02/15/23 05:15 ALT 29 IU/L (10-60) 02/15/23 05:15 Alkaline Phosphatase 205 IU/L (42-121) H 02/15/23 05:15 Total Protein 5.3 g/dL (6.7-8.2) L 02/15/23 05:15 Albumin 2.4 g/dL (3.2-5.5) L 02/15/23 05:15 Globulin 2.9 g/dL (2.1-4.2) 02/15/23 05:15 Albumin/Globulin Ratio 0.8 (1.0-2.2) L 02/15/23 05:15 Lipase 33 U/L (22-51) 02/15/23 05:15 Urine Color DARK YELLOW 02/12/23 13:30 Urine Clarity SL. CLOUDY (CLEAR) 02/12/23 13:30 Urine pH 6.5 PH (5.0-7.5) 02/12/23 13:30 Ur Specific [place] 1.025 (1.002-1.030) 02/12/23 13:30 Urine Protein >=300 mg/dL (NEGATIVE) H 02/12/23 13:30 Urine Glucose (UA) 100 mg/dL (NEGATIVE) H 02/12/23 13:30 Urine Ketones TRACE mg/dL (NEGATIVE) 02/12/23 13:30 Urine Occult Blood LARGE (NEGATIVE) H 02/12/23 13:30 Urine Nitrite NEGATIVE (NEGATIVE) 02/12/23 13:30 Urine Bilirubin NEGATIVE (NEGATIVE) 02/12/23 13:30 Urine Urobilinogen 0.2 (NORMAL) E.U./dL (NORMAL) 02/12/23 13:30 Ur Leukocyte Esterase SMALL (NEGATIVE) H 02/12/23 13:30 Urine RBC TNTC /HPF (0-5) H 02/12/23 13:30 Urine WBC 11-25 /HPF (0-3) H 02/12/23 13:30 Ur Squamous Epith Cells NONE SEEN (<= Few) 02/12/23 13:30 Urine Bacteria Few /HPF (None Seen) 02/12/23 13:30 Ur Microscopic Review INDICATED 02/12/23 13:30 Urine Culture Comments INDICATED 02/12/23 13:30 - Procedures Procedures: Procedures ADVENTIST OF CARDIAC RHYTHM, SINGLE (02/06/23) SUPPLEMENT L INGUINAL REGION WITH SYNTH SUB, OPEN APPROACH (10/29/19) Sepsis Event Note (H) - Evaluation Current Stage of Sepsis: Ruled out ABX Reporting Has patient been on IV antibiotics over the past 48 hours?: Yes
[2023-02-16] MEDS: PHENYTOIN ER 100 MG CAPSULE PO SCH (21:18)
[2023-02-16] MEDS: FINASTERIDE 5 MG TABLET PO SCH (21:19)
[2023-02-16] MEDS: SOLIFENACIN SUCCINATE 5 MG TABLET PO SCH (21:19)
[2023-02-16] MEDS: PHENYTOIN CHEW 50 MG TABLET PO SCH (21:21)
[2023-02-17] MEDS: SODIUM CHLORIDE 0.9% 1,000 ML IV SCH (01:09)
[2023-02-17] MEDS: SODIUM CHLORIDE FLUSH 0.9% 10 ML SYRINGE IVP SCH ×3 (02:44→17:06)
[2023-02-17] MEDS: metroNIDAZOLE 500 MG/100 ML 500 MG/100 ML BAG IV SCH ×3 (04:11→21:16)
[2023-02-17] MEDS: PHENAZOPYRIDINE 100 MG TABLET PO SCH ×3 (05:51→21:16)
[2023-02-17 06:08] LABS: BASOPHILS % (AUTO) 0.2 %; EOSINOPHILS # (AUTO) 0.1 10^3/uL (0.0-0.7); EOSINOPHILS % (AUTO) 0.4 %; HCT - HEMATOCRIT 23.7 % (42.0-52.0); HGB - HEMOGLOBIN 8.1 g/dL (14.0-18.0); LYMPHOCYTES # (AUTO) 0.7 10^3/uL (1.5-3.5); MEAN CORPUSCULAR HEMOGLOBIN 33.8 pg (27.0-31.0); MEAN CORPUSCULAR HGB CONC 34.2 g/dL (32.0-36.0); MEAN CORPUSCULAR VOLUME 98.8 fL (80.0-94.0); MEAN PLATELET VOLUME 8.9 fL (7.4-11.4); MONOCYTES # (AUTO) 1.3 10^3/uL (0.0-1.0); MONOCYTES % (AUTO) 9.7 %; NEUTROPHILS # (AUTO) 11.4 10^3/uL (1.5-6.6); NEUTROPHILS % (AUTO) 82.7 %; NRBC ABSOLUTE COUNT (AUTO) 0.02 x10^3/uL; NUCLEATED RED BLOOD CELLS AUTO 0.1 /100WBC; PLT - PLATELET COUNT 639 10^3/uL (130-450); RED CELL DISTRIBUTION WIDTH 17.2 % (12.0-15.0); WHITE BLOOD COUNT 13.8 x10^3/uL (4.8-10.8)
[2023-02-17 06:16] LABS: ALBUMIN 2.2 g/dL (3.2-5.5); ALBUMIN/GLOBULIN RATIO 0.8 (1.0-2.2); BILIRUBIN,TOTAL 0.6 mg/dL (0.2-1.0); CALCIUM 8.4 mg/dL (8.5-10.3); CREATININE 0.5 mg/dL (0.6-1.2); PHENYTOIN (DILANTIN) 10.1 ug/mL; POTASSIUM 3.3 mmol/L (3.5-5.0); TOTAL PROTEIN 4.9 g/dL (6.7-8.2)
[2023-02-17] MEDS: oxyCODONE 5 MG TABLET PO PRN ×3 (06:58→15:29)
[2023-02-17] MEDS: ONDANSETRON 4 MG/2 ML VIAL IVP PRN (07:04)
[2023-02-17] MEDS ORDERED: POTASSIUM CHLORIDE 20 MEQ TABLET PO ONE (08:01)
[2023-02-17] MEDS: ASPIRIN EC 81 MG TABLET PO SCH (09:41)
[2023-02-17] MEDS: CYANOCOBALAMIN 500 MCG TABLET PO SCH (09:42)
[2023-02-17] MEDS: OMEGA-3 ACID ETHYL ESTERS 1 GM CAPSULE PO SCH (09:42)
[2023-02-17] MEDS: FAMOTIDINE 20 MG TABLET PO SCH ×2 (09:42→21:16)
[2023-02-17] MEDS: oxyCODONE ER 10 MG TABLET PO SCH ×2 (09:42→21:16)
[2023-02-17] MEDS: CHOLECALCIFEROL 25 MCG TABLET PO SCH (09:42)
[2023-02-17] MEDS: LACTOBACILLUS RHAMNOSUS GG CAPSULE PO SCH (09:42)
[2023-02-17] MEDS: polyethylene glycoL 3350 17 GM PACKET PO SCH (09:43)
[2023-02-17] MEDS: SIMETHICONE CHEW 80 MG TABLET PO SCH ×4 (09:44→21:16)
[2023-02-17] MEDS: cefTRIAXone 1 GM in SODIUM CHLORIDE 0.9% MINIBAG 100 ML IV SCH (09:44)
[2023-02-17] MEDS: METOPROLOL SUCCINATE 25 MG TABLET PO SCH (09:53)
[2023-02-17] MEDS: ACETAMINOPHEN 325 MG TABLET PO PRN ×2 (10:42→17:06)
[2023-02-17] MEDS: DICLOFENAC SODIUM 1% GEL 50 GM TUBE TOP PRN (10:46)
[2023-02-17] MEDS: PHENYTOIN CHEW 50 MG TABLET PO SCH (21:15)
[2023-02-17] MEDS: SOLIFENACIN SUCCINATE 5 MG TABLET PO SCH (21:16)
[2023-02-17] MEDS: FINASTERIDE 5 MG TABLET PO SCH (21:16)
[2023-02-17] MEDS: PHENYTOIN ER 100 MG CAPSULE PO SCH (21:16)
[2023-02-18] MEDS: SODIUM CHLORIDE FLUSH 0.9% 10 ML SYRINGE IVP SCH ×3 (03:29→15:47)
[2023-02-18] MEDS: metroNIDAZOLE 500 MG/100 ML 500 MG/100 ML BAG IV SCH ×2 (04:35→12:11)
[2023-02-18] MEDS: SODIUM CHLORIDE 0.9% 1,000 ML IV SCH (04:36)
[2023-02-18] MEDS: oxyCODONE 5 MG TABLET PO PRN ×2 (06:00→16:54)
[2023-02-18] MEDS: PHENAZOPYRIDINE 100 MG TABLET PO SCH (06:00)
[2023-02-18] MEDS: SODIUM CHLORIDE FLUSH 0.9% 10 ML SYRINGE IVP PRN ×2 (06:01→08:02)
[2023-02-18 06:14] LABS: BASOPHILS % (AUTO) 0.2 %; EOSINOPHILS # (AUTO) 0.1 10^3/uL (0.0-0.7); EOSINOPHILS % (AUTO) 0.5 %; HCT - HEMATOCRIT 24.6 % (42.0-52.0); HGB - HEMOGLOBIN 8.5 g/dL (14.0-18.0); LYMPHOCYTES # (AUTO) 0.6 10^3/uL (1.5-3.5); LYMPHOCYTES % (AUTO) 4.3 %; MEAN CORPUSCULAR HGB CONC 34.6 g/dL (32.0-36.0); MEAN CORPUSCULAR VOLUME 98.4 fL (80.0-94.0); MEAN PLATELET VOLUME 8.6 fL (7.4-11.4); MONOCYTES # (AUTO) 1.3 10^3/uL (0.0-1.0); MONOCYTES % (AUTO) 9.4 %; NEUTROPHILS # (AUTO) 11.1 10^3/uL (1.5-6.6); NEUTROPHILS % (AUTO) 83.2 %; NRBC ABSOLUTE COUNT (AUTO) 0.03 x10^3/uL; NUCLEATED RED BLOOD CELLS AUTO 0.2 /100WBC; PLT - PLATELET COUNT 693 10^3/uL (130-450); RED CELL DISTRIBUTION WIDTH 17.5 % (12.0-15.0); WHITE BLOOD COUNT 13.3 x10^3/uL (4.8-10.8)
[2023-02-18 06:27] LABS: ALBUMIN 2.5 g/dL (3.2-5.5); ALBUMIN/GLOBULIN RATIO 0.9 (1.0-2.2); BILIRUBIN,TOTAL 0.6 mg/dL (0.2-1.0); CALCIUM 8.6 mg/dL (8.5-10.3); CREATININE 0.6 mg/dL (0.6-1.2); POTASSIUM 3.3 mmol/L (3.5-5.0); TOTAL PROTEIN 5.3 g/dL (6.7-8.2)
[2023-02-18] MEDS: ONDANSETRON 4 MG/2 ML VIAL IVP PRN ×2 (07:58→16:54)
[2023-02-18] MEDS: METOPROLOL SUCCINATE 25 MG TABLET PO SCH (09:07)
[2023-02-18] MEDS: ASPIRIN EC 81 MG TABLET PO SCH (09:07)
[2023-02-18] MEDS: LACTOBACILLUS RHAMNOSUS GG CAPSULE PO SCH (09:07)
[2023-02-18] MEDS: polyethylene glycoL 3350 17 GM PACKET PO SCH (09:07)
[2023-02-18] MEDS: OMEGA-3 ACID ETHYL ESTERS 1 GM CAPSULE PO SCH (09:07)
[2023-02-18] MEDS: FAMOTIDINE 20 MG TABLET PO SCH ×2 (09:08→20:16)
[2023-02-18] MEDS: oxyCODONE ER 10 MG TABLET PO SCH ×2 (09:08→20:15)
[2023-02-18] MEDS: cefTRIAXone 1 GM in SODIUM CHLORIDE 0.9% MINIBAG 100 ML IV SCH (09:08)
[2023-02-18] MEDS: CHOLECALCIFEROL 25 MCG TABLET PO SCH (09:08)
[2023-02-18] MEDS: CYANOCOBALAMIN 500 MCG TABLET PO SCH (09:08)
[2023-02-18] MEDS: SIMETHICONE CHEW 80 MG TABLET PO SCH ×4 (09:15→20:15)
[2023-02-18] MEDS ORDERED: POTASSIUM CHLORIDE 10 MEQ CAPSULE PO ONE (09:17)
[2023-02-18] MEDS: LORazepam 0.5 MG TABLET PO ONE ×2 (10:07→14:10)
[2023-02-18] MEDS: ACETAMINOPHEN 325 MG TABLET PO PRN (13:46)
[2023-02-18] MEDS ORDERED: LORazepam 2 MG/ML VIAL IVP PRN (14:52)
[2023-02-18] MEDS ORDERED: SODIUM CHLORIDE 0.9% 1,000 ML IV SCH (14:52)
[2023-02-18] MEDS ORDERED: LOPERAMIDE 2 MG CAPSULE PO PRN (14:55)
[2023-02-18] MEDS: ACETAMINOPHEN 325 MG TABLET PO SCH ×2 (14:58→20:18)
--- NOTE | 2023-02-18 15:37 | PROVIDER PROGRESS NOTE ---
Subjective - Prog Note Date Prog Note Date: 02/18/23 Prog Note Time: 15:35 - Subjective Pt reports feeling: No change Subjective: Pt reports feeling the same as usual, no significant improvement. He is concerned about being discharged home, and not wanting to burden his with his care at night. He is worried switching to PO abx will cause upset stomach. He is upset about his pain medications being PRN, and having to ask for them. Otherwise, he reports eating between 50%-66% of his meals since switching to a mechanical soft diet. Pt reports 7/10 chronic pain today in his bladder, colon, and back. He denies: fevers, chills, DELGADO, n/v, diarrhea. Current Medications - Current Medications Current Medications: Active Medications Acetaminophen (Acetaminophen 325 Mg Tablet) 650 mg PO Q6H [facility] Last Admin: 02/18/23 14:58 Dose: Not Given Aspirin (Aspirin Ec 81 Mg Tablet) 81 mg PO DAILY [facility] Last Admin: 02/18/23 09:07 Dose: 81 mg Cefuroxime Axetil (Cefuroxime Axetil 250 Mg Tablet) 500 mg PO BID [facility] Cholecalciferol (Cholecalciferol 25 Mcg Tablet) 50 mcg PO DAILY [facility] Last Admin: 02/18/23 09:08 Dose: 50 mcg Cyanocobalamin (Cyanocobalamin 500 Mcg Tablet) 1,000 mcg PO DAILY [facility] Last Admin: 02/18/23 09:08 Dose: 1,000 mcg Diclofenac Sodium (Diclofenac Sodium 1% Gel 50 Gm Tube) 2 gm TOP QID [facility] Famotidine (Famotidine 20 Mg Tablet) 20 mg PO BID [facility] Last Admin: 02/18/23 09:08 Dose: 20 mg Finasteride (Finasteride 5 Mg Tablet) 5 mg PO [facility] Last Admin: 02/17/23 21:16 Dose: 5 mg Sodium Chloride (Normal Saline 0.9%) 1,000 mls @ 40 mls/hr IV .Q25H [facility] Stop: 02/19/23 06:00 Lactobacillus Rhamnosus (Lactobacillus Rhamnosus Gg Capsule) 1 cap PO DAILY [facility] Last Admin: 02/18/23 09:07 Dose: 1 cap Loperamide HCl (Loperamide 2 Mg Capsule) 2 mg PO QID PRN PRN Reason: Diarrhea Lorazepam (Lorazepam 2 Mg/Ml Vial) 0.5 mg IVP HS PRN PRN Reason: NEEDED PER PROVIDER ORDERS Metoprolol Succinate (Metoprolol Succinate 25 Mg Tablet) 25 mg PO DAILY [facility] Last Admin: 02/18/23 09:07 Dose: 25 mg Metronidazole (Metronidazole 250 Mg Tablet) 500 mg PO TIDWM [facility] Morphine Sulfate (Morphine 2 Mg/Ml Carpuject) 2 mg IVP Q6HR PRN PRN Reason: Pain 8 to 10 Last Admin: 02/13/23 16:59 Dose: 2 mg Multi-Ingredient Ointment (Zinc Oxide 20% Oint 30 Gm Tube) 1 applic TOP PRN PRN PRN Reason: Skin Care Last Admin: 02/13/23 11:48 Dose: 1 applic [id number] Ethyl Esters ([place]-3 Acid Ethyl Esters 1 Gm Capsule) 1 gm PO DAILY [facility] Last Admin: 02/18/23 09:07 Dose: 1 gm Ondansetron HCl (Ondansetron 4 Mg/2 Ml Vial) 4 mg IVP Q6HR PRN PRN Reason: Nausea / Vomiting Last Admin: 02/18/23 07:58 Dose: 4 mg Oxycodone HCl (Oxycodone 5 Mg Tablet) 5 mg PO TID PRN PRN Reason: PAIN 1-4 Last Admin: 02/17/23 14:02 Dose: 5 mg Oxycodone HCl (Oxycodone Er 10 Mg Tablet) 10 mg PO BID [facility] Last Admin: 02/18/23 09:08 Dose: 10 mg Oxycodone HCl (Oxycodone 5 Mg Tablet) 20 mg PO TID [facility] Phenytoin Sodium (Phenytoin Er 100 Mg Capsule) 200 mg PO HS [facility] Last Admin: 02/17/23 21:16 Dose: 200 mg Phenytoin Sodium (Phenytoin Chew 50 Mg Tablet) 100 mg PO QPM [facility] Last Admin: 02/17/23 21:15 Dose: 100 mg Polyethylene Glycol (Polyethylene Glycol 3350 17 Gm Packet) 17 gm PO DAILY [facility] Last Admin: 02/18/23 09:07 Dose: 17 gm Simethicone (Simethicone Chew 80 Mg Tablet) 80 mg PO QID [facility] Last Admin: 02/18/23 12:11 Dose: 80 mg Sodium Chloride (Sodium Chloride Flush 0.9% 10 Ml Syringe) 10 ml IVP PRN PRN PRN Reason: NEEDED PER PROVIDER ORDERS Last Admin: 02/18/23 08:02 Dose: 10 ml Sodium Chloride (Sodium Chloride Flush 0.9% 10 Ml Syringe) 10 ml IVP 0100,0900,1700 [facility] Last Admin: 02/18/23 15:47 Dose: 10 ml Solifenacin (Solifenacin Succinate 5 Mg Tablet) 10 mg PO QPM [facility] Last Admin: 02/17/23 21:16 Dose: 10 mg Aspirin EC [Ecotrin] 81 mg PO DAILY 06/27/13 Vit A,C & E/Lutein/Minerals [Ocuvite with Lutein Tablet] 1 each PO DAILY 06/27/13 Cyanocobalamin (Vitamin B-12) [Vitamin B-12] 1,000 mcg PO DAILY 02/09/14 Cholecalciferol (Vitamin D3) [Vitamin D3] 2,000 units ORAL DAILY 05/03/14 levOCARNitine tartrate [l-Carnitine] 250 mg PO BID 05/09/18 polyethylene glycoL 3350 [Miralax] 17 gm PO DAILY 01/06/19 Finasteride 5 mg PO DAILY PM 02/21/19 Mirabegron [Myrbetriq] 50 mg PO DAILY PM 02/21/19 Famotidine [Pepcid] 20 mg PO BID 07/28/19 Phenytoin Infatab [Dilantin Infatab] 50 mg PO QPM 07/28/19 [place]-3/Dha/Epa/Fish Oil [Fish Oil 1,000 mg Softgel] 1,000 mg PO DAILY 11/29/21 Oxycodone Myristate [Xtampza ER] 13.5 mg PO TID 11/29/21 oxyCODONE [Roxicodone] 5 mg PO TID PRN 12/01/21 LORazepam [Ativan] 0.5 mg PO QID PRN 02/07/23 Oxycodone HCl 20 mg PO TID PRN 02/07/23 Phenytoin [Dilantin] 200 mg PO HS 02/07/23 Acetaminophen [Tylenol] 325 mg PO Q6H PRN 02/12/23 Diclofenac Sodium 1% Gel [Voltaren Gel] 2 - 4 gm TOP QID PRN 02/14/23 Objective - Vital Signs/Intake & Output Reviewed Vital Signs: Yes Vital Signs: Vital Signs Temp Pulse Resp BP Pulse Ox O2 Flow Rate 37 C 60 16 118/56 L 94 02/18/23 15:44 02/18/23 15:44 02/18/23 15:44 02/18/23 15:44 02/18/23 15:44 Intake & Output: Intake & Output 02/15/23 02/16/23 02/17/23 02/18/23 23:59 23:59 23:59 23:59 Intake Total 2575.000 2801.667 2208.333 1530.000 Output Total 1800 2600 2150 1500 Balance 775.000 201.667 58.333 30.000 - Objective General Appearance: positive: No acute distress, Alert Eyes Bilateral: positive: Normal inspection, EOMI ENT: positive: ENT inspection nml Neck: positive: Nml inspection, No JVD, Trachea midline Respiratory: positive: Chest non-tender, No respiratory distress, Breath sounds nml Cardiovascular: positive: Regular rate & rhythm, No murmur, No gallop Peripheral Pulses: 2+ Radial (R), 2+ Radial (L) Abdomen: positive: No distention. negative: Guarding, Rebound Skin: positive: Color nml, No rash, Warm Extremities: positive: Non-tender, Full ROM, Nml appearance, No pedal edema Neurologic/Psychiatric: positive: Oriented x3, CN's nml (2-12), Motor nml, Sens ation nml, Mood/affect nml - Lab Results Fish Bones: 02/19/23 06:30 02/19/23 06:30 Other Labs: Lab Results x24hrs 02/18/23 02/18/23 Range/Units 06:10 06:10 WBC 13.3 H (4.8-10.8) x10^3/uL RBC 2.50 L (4.70-6.10) 10^6/uL Hgb 8.5 L (14.0-18.0) g/dL Hct 24.6 L (42.0-52.0) % MCV 98.4 H (80.0-94.0) fL MCH 34.0 H (27.0-31.0) pg MCHC 34.6 (32.0-36.0) g/dL RDW 17.5 H (12.0-15.0) % Plt Count 693 H (130-450) 10^3/uL MPV 8.6 (7.4-11.4) fL Neut # (Auto) 11.1 H (1.5-6.6) 10^3/uL Lymph # (Auto) 0.6 L (1.5-3.5) 10^3/uL [place] # (Auto) 1.3 H (0.0-1.0) 10^3/uL Eos # (Auto) 0.1 (0.0-0.7) 10^3/uL Baso # (Auto) 0.0 (0.0-0.1) 10^3/uL Absolute Nucleated RBC 0.03 x10^3/uL Nucleated RBC % 0.2 /100WBC Sodium 140 (135-145) mmol/L Potassium 3.3 L (3.5-5.0) mmol/L Chloride 105 (101-111) mmol/L Carbon Dioxide 26 (21-32) mmol/L Anion Gap 9.0 (6-13) BUN 6 (6-20) mg/dL Creatinine 0.6 (0.6-1.2) mg/dL Estimated GFR (MDRD) 129 (>89) Glucose 105 H (70-100) mg/dL Calcium 8.6 (8.5-10.3) mg/dL Total Bilirubin 0.6 (0.2-1.0) mg/dL AST 16 (10-42) IU/L ALT 16 (10-60) IU/L Alkaline Phosphatase 162 H (42-121) IU/L Total Protein 5.3 L (6.7-8.2) g/dL Albumin 2.5 L (3.2-5.5) g/dL Globulin 2.8 (2.1-4.2) g/dL Albumin/Globulin Ratio 0.9 L (1.0-2.2) Lipase 38 (22-51) U/L Sepsis Event Note (H) - Evaluation Current Stage of Sepsis: Ruled out Assessment/Plan - Problem List (1) Abdominal pain Impression: 02/17: Abdominal pain is improving over the past few days. He denies any right upper quadrant pain at this time only notes some lower abdominal pain. He notes that his current pain medication regimen seems to be helping. 02/18: Pt reports suprapubic pain only, PE was consistent. He is upset about his pain medications being PRN. Pt's vitals and labs indicate he is okay to be discharged home. When discussed w/ pt, he was concerned about managing IV abx at home. He and his are in communication with at-home health. He is eating 50% or more, indicating pt can be discharged. PLAN: Pain medication administration has been set to a schedule. This will minimize the pt having to ask for his medications. Trial PO abx overnight to assess for GI sx. If there are no symptoms suggesting further care, pt is safe to be discharged home tomorrow. Qualifiers: Abdominal location: generalized Qualified Code(s): R10.84 - Generalized a bdominal pain (2) Pancreatitis, acute Impression: 02/18: Pt's lipase is stable at 38. PLAN: Continue to monitor. Qualifiers: Pancreatitis type: unspecified pancreatitis type Acute pancreatitis complication: unspecified Qualified Code(s): K85.90 - Acute pancreatitis without necrosis or infection, unspecified (3) Colitis Impression: 02/17: There is concern of a sigmoid colitis so we will continue with his current antibiotic regimen of IV Rocephin and IV Flagyl which was started on February 1202/18: When discussing possible discharge, pt is concerned about having flatulence and BM's in the middle of the night. He expressed the gas gives him a sense of needing to have a BM at night, for which he does not want to bother his for help. He states the gas is present closer to meals. He reports his BM's are not normal, and hopes they improve now that he is on a mechanical soft diet, and not liquids only. His BM's have been loose since admission, except for today. He has had 2 formed brown stools. Pt was advised that it is safe for him to discharged as long as his stools are not liquid. PLAN: His stools are formed today, indicating he can possibly discharge. He will continue on simethicone 80 mg PO qid. (4) Cystitis Impression: 02/17: Urine culture did not show any infection suspect this is related to treatment for bladder cancer at scheduled clinic with Dr. Fajardo. He has compl eted traditional therapy and possibly will start immunotherapy. 02/18: Pt reports "bladder pain" today, which is likely due to his bladder cancer. He is upset about having to wait for his pain medication, due to it being PRN. Bobby cathether was inserted on 02/12. PLAN: Pt will continue to be monitored. His pain medications will be switched to a schedule, and no longer PRN. Pt will go home with bobby when discharged. 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 02/18: Same as above. Pt's platelet count has increased to 693. PLAN: I will recheck labs tomorrow, and continue to monitor. (6) Paroxysmal atrial fibrillation Impression: 02/17: History of atrial fibrillation diagnosed in 2001. Continue with current medication regimen. Echocardiogram ordered for formal assessment. 02/18: Same as above. (7) Bladder cancer Impression: 02/17: Patient was diagnosed October 2022. He has had chemotherapy. He does admit to having abdominal pain due to his bladder cancer. 02/18: Same as above. Qualifiers: Bladder location: unspecified site Qualified Code(s): C67.9 - Malignant neoplasm of bladder, unspecified (8) Cor pulmonale Impression: Previous ECHO demonstrates evidence of cor pulmonale. Pt has untreated RISSA. He refused to wear CPAP. Last sleep study was more than 10 years ago. PLAN: Pt will benefit from a sleep study and regular CPAP use, such as nose pillow mask. (9) Seizure disorder Impression: Pt expressed concern about not receiving his Dilantin in the appropriate dosage. He reports having mouth spasms last night, where he found himself mildly bleeding from biting himself. He states his Dilantin therapeutic level is >= 13, and this is checked once a month. Labs were drawn this morning, an his current level is 10.1. PLAN: Clarified dosage information with pt, and modified medication orders.
[2023-02-18] MEDS: metroNIDAZOLE 250 MG TABLET PO SCH (16:54)
[2023-02-18] MEDS: DICLOFENAC SODIUM 1% GEL 50 GM TUBE TOP SCH ×2 (16:55→20:16)
[2023-02-18] MEDS: SOLIFENACIN SUCCINATE 5 MG TABLET PO SCH (20:15)
[2023-02-18] MEDS: PHENYTOIN CHEW 50 MG TABLET PO SCH (20:15)
[2023-02-18] MEDS: FINASTERIDE 5 MG TABLET PO SCH (20:16)
[2023-02-18] MEDS: PHENYTOIN ER 100 MG CAPSULE PO SCH (20:16)
[2023-02-18] MEDS: oxyCODONE 5 MG TABLET PO SCH (22:52)
[2023-02-19] MEDS: SODIUM CHLORIDE FLUSH 0.9% 10 ML SYRINGE IVP SCH ×2 (03:28→08:37)
[2023-02-19] MEDS: ACETAMINOPHEN 325 MG TABLET PO SCH ×2 (03:28→08:36)
[2023-02-19] MEDS: oxyCODONE 5 MG TABLET PO SCH (05:50)
[2023-02-19 06:33] LABS: BASOPHILS % (AUTO) 0.2 %; EOSINOPHILS # (AUTO) 0.1 10^3/uL (0.0-0.7); EOSINOPHILS % (AUTO) 0.8 %; HCT - HEMATOCRIT 23.9 % (42.0-52.0); HGB - HEMOGLOBIN 8.1 g/dL (14.0-18.0); LYMPHOCYTES # (AUTO) 0.7 10^3/uL (1.5-3.5); LYMPHOCYTES % (AUTO) 5.9 %; MEAN CORPUSCULAR HEMOGLOBIN 33.5 pg (27.0-31.0); MEAN CORPUSCULAR HGB CONC 33.9 g/dL (32.0-36.0); MEAN CORPUSCULAR VOLUME 98.8 fL (80.0-94.0); MEAN PLATELET VOLUME 8.9 fL (7.4-11.4); MONOCYTES # (AUTO) 1.3 10^3/uL (0.0-1.0); MONOCYTES % (AUTO) 10.8 %; NEUTROPHILS # (AUTO) 9.6 10^3/uL (1.5-6.6); NEUTROPHILS % (AUTO) 80.5 %; NRBC ABSOLUTE COUNT (AUTO) 0.03 x10^3/uL; NUCLEATED RED BLOOD CELLS AUTO 0.3 /100WBC; PLT - PLATELET COUNT 740 10^3/uL (130-450); RED BLOOD COUNT 2.42 10^6/uL (4.70-6.10); RED CELL DISTRIBUTION WIDTH 18.1 % (12.0-15.0); WHITE BLOOD COUNT 11.9 x10^3/uL (4.8-10.8)
[2023-02-19 06:44] LABS: CALCIUM 8.7 mg/dL (8.5-10.3); CREATININE 0.6 mg/dL (0.6-1.2); POTASSIUM 3.6 mmol/L (3.5-5.0)
[2023-02-19 08:03] VITALS: BP 121/64
[2023-02-19] MEDS: OMEGA-3 ACID ETHYL ESTERS 1 GM CAPSULE PO SCH (08:35)
[2023-02-19] MEDS: oxyCODONE ER 10 MG TABLET PO SCH (08:35)
[2023-02-19] MEDS: CYANOCOBALAMIN 500 MCG TABLET PO SCH (08:36)
[2023-02-19] MEDS: polyethylene glycoL 3350 17 GM PACKET PO SCH (08:37)
[2023-02-19] MEDS: metroNIDAZOLE 250 MG TABLET PO SCH ×2 (08:37→11:25)
[2023-02-19] MEDS: LACTOBACILLUS RHAMNOSUS GG CAPSULE PO SCH (08:37)
[2023-02-19] MEDS: CHOLECALCIFEROL 25 MCG TABLET PO SCH (08:37)
[2023-02-19] MEDS: FAMOTIDINE 20 MG TABLET PO SCH (08:37)
[2023-02-19] MEDS: ASPIRIN EC 81 MG TABLET PO SCH (08:37)
[2023-02-19] MEDS: SIMETHICONE CHEW 80 MG TABLET PO SCH (08:37)
[2023-02-19] MEDS: DICLOFENAC SODIUM 1% GEL 50 GM TUBE TOP SCH (08:46)
[2023-02-19] MEDS: METOPROLOL SUCCINATE 25 MG TABLET PO SCH (10:54)
[2023-02-19] MEDS ORDERED: METOPROLOL SUCCINATE 25 MG TABLET PO SCH (11:10)
[2023-02-19] MEDS: oxyCODONE 5 MG TABLET PO PRN (11:26)
--- NOTE | 2023-02-19 12:24 | Discharge Plan ---
Discharge Plan Problem Reviewed?: Yes Disposition: Home, Self Care Assistance Devices: Walker No Smoking: If you smoke, Please STOP! Call for help. Follow-up with: Bay Cruz MD [Primary Care Provider] -
--- NOTE | 2023-02-19 12:28 | DISCHARGE SUMMARY ---
Discharge Summary Admit Date: 02/12/23 Discharge Date: 02/19/23 Discharging Provider: Dr. Mancini Primary Care Provider: Dr. Cruz Code Status: Attempt Resuscitation Condition at Discharge: Stable Discharge Disposition: [facility] History of Present Illness: 82-year-old male returns to the emergency department for evaluation of uncon trolled abdominal pain. He was seen and admitted to this hospital on 05 February. At that time he had just Received a course of chemoradiation at [facility] when he began to have seizure-like activity in the car. He was admitted for sepsis of unclear etiology. While hospitalized he is urine did not grow anything. He was on broad-spectrum antibiotics vancomycin and cefepime. While hospitalized he did develop atrial fibrillation likely secondary to cor pulmonale. The patient was discharged from the hospital On 10 February. Since discharge he reports that he is continue to have persistent lower abdominal pain. No fevers. No wilbert dysuria. He has not yet followed back up with hematology/oncology. Patient reports that he is taking his Oxy codon as prescribed its not effective at relieving the pain. Patient was recently dc from hospital on 02/10/2023 "Patient is an 82-year-old male currently undergoing chemo and radiation for treatment of bladder cancer who presented to the emergency department on 02/05 for evaluation of seizure-like activity. He did receive chemotherapy that day at [facility] and as his was driving him home, he began to have some shaking and rigors of his arms which she and the patient thought were concerning for seizures. However he never had any lapse in consciousness, remained alert and conversant. On presentation to the emergency department, he was noted to be febrile up to 103.4. He did have some mild tachycardia with a resting heart rate of 108. No hypotension was noted. Given the history of bladder cancer as well as recent chemotherapy, appropriate sepsis labs were obtained including blood cultures x2, urinalysis, CBC, electrolytes and lactate. The CBC per the ER provider's interpretation showed no acute worrisome findings. No leukopenia or leukocytosis. He did have a very mild anemia with a hemoglobin of 10.4. Patient's reports a remote history of thrombocytopenia but his platelet count today is normal. His blood chemistry was essentially unremarkable. Lactate was negative. UA may be indicative of early cystitis given the large amount of WBCs but there is rare bacteria. A culture is pending. Given lack of acidosis or hypotension patient does not present as having septic shock His requested we obtain a Dilantin level as she states that he likes to run in the "higher ranges." Dilantin level was 10.1. He was administered 500 mg of Dilantin IV here in the ER. Clinically, the ED provider was not suspicious that the patient had seizure activity as reported by the as he remained alert and conversant throughout. He was most likely experiencing rigors and chills in the setting of fever. Subsequently, we did obtain a CT of the head which showed no acute intracranial findings. This patient does have an indwelling right upper chest port. Chest x-ray showed no findings of pneumonia and the patient was started on broad-spectrum antibiotics with cefepime and Vanco. The ED provider spoke with his oncologist at [facility], Dr. Chiu. He was in agreement that the patient should be admitted to the hospital for further evaluation of the fever in the setting of chemotherapy. He requested that an MRI of the head be completed with and without contrast to rule out any mets to the brain, as on presentation the patient did have some stuttering and word finding difficulty but no focal neurodeficits otherwise. The patient spent the night in the ED because there were no beds available initially. He was in a private isolation room on telemetry monitoring with respiratory and neutropenic precautions (though he is not neutropenic). Med reconciliation was completed. Urinalysis not consistent with infection. CT of the abdomen showed some inflammation around the bladder as well as the rectosigmoid colon. This is not unexpected given the finding of cancer as well as chemoradiation. He was started on broad-spectrum antibiotics: vancomycin and cefepime. Source of the fever is not yet clear given the otherwise negative x-ray imaging yesterday. 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 On admission, blood cultures are still pending. He has back pain from lying on hard surfaces during his radiation treatment yesterday and during the MRI today. He also has abdominal pain from chemotherapy, which he states is difficult to differentiate from his bladder pain at times. He has no word finding difficulties today. No nausea, vomiting, or headache. He can't remember when his last seizure was, but states it was several years ago. 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 His abdominal pain was likely a combination of acute pancreatitis, colitis, and cystitis. Pt was started on IV Rocephin and flagyl, fluids, and narcotic pain medications. He began to improve overall. His pain began to be controlled, with his baseline chronic pain remaining the same. Pt was concerned about abx treatment at home upon discharge. For this reason, we had a trial of PO abx overnight on 02/18. He denied nausea, vomit, upset stomach, and diarrhea the following morning. His stools were soft and formed in the morning as well. (2) Colitis Patient was previously treated here for colitis for 4 days with IV cefepime, vanco, and flagyl, and was discharged on PO cipro and flagyl. He returned 2 days after discharge due to persistent lower abdominal pain. He stated he stopped taking his PO abx upon discharge due to upset stomach. He was started on IV Rocephin and IV Flagyl on 02/12 in the ED. Due to the concern of sigmoid colitis, he remained on this regimen throughout his admission. Pt was initially on a liquid diet, and promoted to a mechanical soft diet. He was treated with imodium for diarrhea and simethicone for gas. His BM's improved from loose stools to formed stools. (3) Pancreatitis, acute The patient reported a history of recurrent pancreatitis. On admission, his lipase levels were highly elevated to 211. Pt received IV fluids and pain management with morphine and Roxicodone. Lipase levels began to decrease on day 2, returning to normal limits on day 3. Lipase has been stable since then for the remainder of his hospital course. Pt no longer reported epigastric pain. (4) Cystitis IV rocephin was started to treat empirically. His urine culture had no growth. During his previous admission, his cystitis was attributed to inflammatory etiology, likely related to treatment for bladder cancer. He is being treated by Dr. Chiu at [facility]. He has completed traditional therapy and possibly will start immunotherapy. Bobby catheter was inserted on 02/12. He is to be discharged with the bobby, and should have follow-up with his urologist. Pt required narcotic medications for pain control. (5) Bladder cancer Patient was diagnosed October 2022. He has had chemotherapy and radiation, and is being treated by Dr. Navin Chiu at [facility]. He does admit to having lower abdominal and bladder pain due to his bladder cancer. Patient required narcotic medication for pain control while admitted. He is to continue his at home pain control schedule upon discharge. (6) Cor pulmonale Previous ECHO demonstrates evidence of cor pulmonale. Pt has untreated RISSA, which is likely the etiology of cor pulmonale. He refused to wear CPAP. Last sleep study was more than 10 years ago. He will benefit from a sleep study and regular CPAP use, such as nose pillow mask. 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 He is allergic to "heparinoid's." Throughout his course, his platelets were elevated. This is likely a result of his comorbidities such as bladder cancer. (8) Seizure disorder Patient has a history of seizures. He reported once incident of mouth spasms at night on 02/18, where he found himself mildly bleeding from biting himself. He states his Dilantin therapeutic level is 13 to 20, and this is checked once a month. His levels were checked, and were at 10.1. When discussing with patient the options of giving him IV Dilantin while he was still admitted or taking 300 mg pill of Dilantin, he opted to stay on his regular course and let his Dilantin build up slowly over the next 3-4 weeks before having his levels rechecked. (9) Paroxysmal atrial fibrillation He has a history of atrial fibrillation diagnosed in 2001. He is to continue with current medication regimen of toprol-XL 12.5 mg qd. Pt was advised he needs a stress test and cardiology evaluation. - ALLERGIES Allergies/Adverse Reactions: Allergies Allergy/AdvReac Type Severity Reaction Status Date / Time amitriptyline [Amitriptyline] Allergy Intermediate Hallucinati Verified 02/12/23 13:10 ons heparinoids Allergy Intermediate Rash Verified 02/12/23 13:10 baclofen Allergy Unknown Verified 02/12/23 13:10 celecoxib Allergy Unknown Verified 02/12/23 13:10 diphenhydramine Allergy paradoxical Verified 02/12/23 13:10 reaction divalproex sodium Allergy pancreatiti Verified 02/12/23 13:10 [From Depakote] s glucosamine Allergy Unknown Verified 02/12/23 13:10 naproxen Allergy GI pain Verified 02/12/23 13:10 oxcarbazepine Allergy Unknown Verified 02/12/23 13:10 [From Trileptal] pregabalin [From Lyrica] Allergy pancreatiti Verified 02/12/23 13:10 s - MEDICATIONS Home Medications: Ambulatory Orders Medication Instructions Recorded Confirmed Aspirin EC [Ecotrin] 81 mg PO DAILY 06/27/13 02/12/23 Vit A,C & E/Lutein/Minerals 1 each PO DAILY 06/27/13 02/12/23 [Ocuvite with Lutein Tablet] Cyanocobalamin (Vitamin B-12) 1,000 mcg PO DAILY 02/09/14 02/12/23 [Vitamin B-12] Cholecalciferol (Vitamin D3) 2,000 units ORAL DAILY 05/03/14 02/12/23 [Vitamin D3] levOCARNitine tartrate 250 mg PO BID 05/09/18 02/12/23 [l-Carnitine] polyethylene glycoL 3350 [Miralax] 17 gm PO DAILY 01/06/19 02/12/23 Finasteride 5 mg PO DAILY PM 02/21/19 02/12/23 Mirabegron [Myrbetriq] 50 mg PO DAILY PM 02/21/19 02/12/23 Famotidine [Pepcid] 20 mg PO BID 07/28/19 02/12/23 Phenytoin Infatab [Dilantin 100 mg PO QPM 07/28/19 02/19/23 Infatab] Jet-3/Dha/Epa/Fish Oil [Fish Oil 1,000 mg PO DAILY 11/29/21 02/12/23 1,000 mg Softgel] Oxycodone Myristate [Xtampza ER] 13.5 mg PO TID 11/29/21 02/12/23 oxyCODONE [Roxicodone] 5 mg PO TID PRN 12/01/21 02/12/23 LORazepam [Ativan] 0.5 mg PO QID PRN 02/07/23 02/12/23 Oxycodone HCl 20 mg PO TID PRN 02/07/23 02/12/23 Phenytoin [Dilantin] 200 mg PO HS 02/07/23 02/12/23 Lactobacillus Acidophilus 1 each PO DAILY #4 tablet 02/10/23 02/12/23 [Probiotic Acidophilus] Metoprolol Succinate [Toprol Xl] 12.5 mg PO DAILY #15 tab 02/10/23 02/12/23 Simethicone [Mylicon] 80 mg PO QID #60 tab 02/10/23 02/12/23 metroNIDAZOLE [Flagyl] 500 mg PO TID #12 tab 02/10/23 02/12/23 oxyCODONE ER [OxyCONTIN] 10 mg PO BID PRN #16 tab 02/10/23 02/12/23 Acetaminophen [Tylenol] 325 mg PO Q6H PRN 02/12/23 02/12/23 Diclofenac Sodium 1% Gel [Voltaren 2 - 4 gm TOP QID PRN 02/14/23 02/14/23 Gel] Loperamide [Imodium] 2 mg PO QID PRN #15 cap 02/19/23 cefUROXime axetiL [Ceftin] 500 mg PO BID #20 tab 02/19/23 - PHYSICAL EXAM AT DISCHARGE General Appearance: positive: No acute distress, Alert Eyes Bilateral: positive: Normal inspection, EOMI ENT: positive: ENT inspection nml, No signs of dehydration Neck: positive: Nml inspection, No JVD, Trachea midline Respiratory: positive: Chest non-tender, No respiratory distress Cardiovascular: positive: Regular rate & rhythm, No murmur, No gallop Peripheral Pulses: positive: 2+ Abdomen: positive: Nml bowel sounds, No distention, Tenderness (Suprapubic pain) Skin: positive: Color nml, No rash, Warm Extremities: positive: Non-tender, Full ROM, Nml appearance, No pedal edema Neurologic/Psychiatric: positive: Oriented x3, CN's nml (2-12), Motor nml - LABS Result Diagrams: 02/19/23 06:30 02/19/23 06:30 - DIAGNOSTIC IMAGING Diagnostic Imaging Results: Final report reviewed - SEPSIS Current Stage of Sepsis: Ruled out - FOLLOW UP Follow Up: Pt will follow-up with his PCP. - TIME SPENT Time Spent in Discharge (Minutes): 45
--- NOTE | 2023-02-19 12:33 | Discharge Plan ---
Discharge Plan Problem Reviewed?: Yes Disposition: Home Health Service Condition: Stable Prescriptions: cefUROXime axetiL [Ceftin] 500 mg PO BID #20 tab Loperamide [Imodium] 2 mg PO QID PRN #15 cap PRN Reason: Diarrhea Diet: Soft (Please eat an easy to digest diet because of having colitis, the colon will have a hard time to handle high-fiber food. Advance your diet as tolerated.) Activity Restrictions: Activity as Tolerated Shower Restrictions: No Driving Restrictions: No Health Concerns: You were hospitalized to treat colitis, cystitis and pancreatitis. You needed bowel rest, IV fluids and oral antibiotics were changed to IV antibiotics. The IV antibiotics have now been transitioned back to oral antibiotics and your bowel movements are better and pelvic and abdominal pain is under better control. You are being discharged home today. Please DO NOT TAKE THE CIPRO which was recently prescribed. Please FINISH THE TABLETS OF Flagyl antibiotic, which you already have at home that I prescribed after the last hospitalization. Please take 5 days of the new antibiotic Ceftin, to complete the course of treatment for the infections/inflammation. Please resume all your other medicines for seizures, pain control, etc. Your Dilantin dose should be 300 mg daily since the blood Dilantin level is too low (10.1 and 10.5). A new prescription for Imodium (to control diarrhea), has also been ordered for you. All new prescriptions were electronically sent to your [facility] pharmacy. Please plan to see your Primary Care Provider in the next 7 to 10 days, since you have had 2 hospitalizations [id number] in the last 2 weeks. Also please see your Urologist or your Oncologist about the new Gomez catheter, that you are going home with. Continue with the new medication prescribed for your prostate, which may have added to urinary retention. A referral has been sent to a Home Health agency to come to your house and help with Gomez care, monthly Gomez changes, etc. If you have new or worsening symptoms, call your Oncologist or Primary Care Provider for advice, or come to the ER. Plan of Treatment: As above. Care Goals: Improvement in symptoms and stabilization are the goals. Assessment: The patient understands and is agreeable with the plan. No Smoking: If you smoke, Please STOP! Call for help. Follow-up with: Bay Cruz MD [Primary Care Provider] -
== END 2023-02-19 14:34 | disposition home health service (06) | DRG 440 ==
LOC: ED 13:00 → MS2 20:02
PROVIDERS: ADMIT Internal Medicine; ATTEND Internal Medicine
DX: K85.90 Acute pancreatitis without necrosis or infection, unspecified (principal); Z92.21 Personal history of antineoplastic chemotherapy; D72.825 Bandemia; R07.9 Chest pain, unspecified; Z92.3 Personal history of irradiation; Z87.891 Personal history of nicotine dependence; K52.9 Noninfective gastroenteritis and colitis, unspecified; N30.90 Cystitis, unspecified without hematuria; G89.29 Other chronic pain; C67.9 Malignant neoplasm of bladder, unspecified; G47.33 Obstructive sleep apnea (adult) (pediatric); I27.81 Cor pulmonale (chronic); Z86.2 Personal history of diseases of the blood and blood-forming organs and certain disorders involving the immune mechanism; Z90.81 Acquired absence of spleen; G40.909 Epilepsy, unspecified, not intractable, without status epilepticus; I48.0 Paroxysmal atrial fibrillation; I10 Essential (primary) hypertension; K21.9 Gastro-esophageal reflux disease without esophagitis; Z79.82 Long term (current) use of aspirin; Z79.899 Other long term (current) drug therapy; Z79.891 Long term (current) use of opiate analgesic
CPT/HCPCS: 36415; 51798; 71045; 74177; 80048; 80053; 80185; 81001; 83605; 83690; 83735; 85025; 87040; 87086; 93306; 96365; 96367; 96375; 96376; 97161; 97166; 97530; 97535; 99285; A9270; J1170; J2060; J3370; 81003

== ENCOUNTER 2023-02-21 16:13 | Outpatient (CLI) | payer MEDICARE, OTHER | END 2023-02-21 16:14 | disposition critical access hospital (66) | LOC: EMS 16:13 | DX: T83.038A Leakage of other urinary catheter, initial encounter (principal); T83.84XA Pain due to genitourinary prosthetic devices, implants and grafts, initial encounter | CPT/HCPCS: A0425; A0429 ==

== ENCOUNTER 2023-02-21 16:30 | Emergency (ER) | payer MEDICARE, OTHER ==
--- NOTE | 2023-02-21 16:40 | ED Physician Documentation ---
History of Present Illness - Stated complaint Stated Complaint: CATHETER ISSUE - History obtained from History obtained from: Patient (82-year-old gentleman with bladder cancer, recently here with urinary retention and had a catheter placed. Today it stopped draining and he developed a lot of suprapubic pain.) PD PAST MEDICAL HISTORY - Past Medical History Cardiovascular: Hypertension Respiratory: Sleep apnea Neuro: Seizure disorder Endocrine/Autoimmune: None GI: GERD, Pancreatitis : Kidney stones, Other HEENT: Chronic hearing loss, Other Psych: Anxiety Musculoskeletal: Osteoarthritis, Chronic back pain Derm: Psoriasis - Past Surgical History Past Surgical History: Yes General: Cholecystectomy, Appendectomy, Bowel surgery, Splenectomy Ortho: Hip replacement, Arthroscopic surgery HEENT: Tonsil/Adenoidectomy, Other - Present Medications Home Medications: Ambulatory Orders Medication Instructions Recorded Confirmed Aspirin EC [Ecotrin] 81 mg PO DAILY 06/27/13 02/12/23 Vit A,C & E/Lutein/Minerals 1 each PO DAILY 06/27/13 02/12/23 [Ocuvite with Lutein Tablet] Cyanocobalamin (Vitamin B-12) 1,000 mcg PO DAILY 02/09/14 02/12/23 [Vitamin B-12] Cholecalciferol (Vitamin D3) 2,000 units ORAL DAILY 05/03/14 02/12/23 [Vitamin D3] levOCARNitine tartrate 250 mg PO BID 05/09/18 02/12/23 [l-Carnitine] polyethylene glycoL 3350 [Miralax] 17 gm PO DAILY 01/06/19 02/12/23 Finasteride 5 mg PO DAILY PM 02/21/19 02/12/23 Mirabegron [Myrbetriq] 50 mg PO DAILY PM 02/21/19 02/12/23 Famotidine [Pepcid] 20 mg PO BID 07/28/19 02/12/23 Phenytoin Infatab [Dilantin 100 mg PO QPM 07/28/19 02/19/23 Infatab] Elmer-3/Dha/Epa/Fish Oil [Fish Oil 1,000 mg PO DAILY 11/29/21 02/12/23 1,000 mg Softgel] Oxycodone Myristate [Xtampza ER] 13.5 mg PO TID 11/29/21 02/12/23 oxyCODONE [Roxicodone] 5 mg PO TID PRN 12/01/21 02/12/23 LORazepam [Ativan] 0.5 mg PO QID PRN 02/07/23 02/12/23 Oxycodone HCl 20 mg PO TID PRN 02/07/23 02/12/23 Phenytoin [Dilantin] 200 mg PO HS 02/07/23 02/12/23 Lactobacillus Acidophilus 1 each PO DAILY #4 tablet 02/10/23 02/12/23 [Probiotic Acidophilus] Metoprolol Succinate [Toprol Xl] 12.5 mg PO DAILY #15 tab 02/10/23 02/12/23 Simethicone [Mylicon] 80 mg PO QID #60 tab 02/10/23 02/12/23 metroNIDAZOLE [Flagyl] 500 mg PO TID #12 tab 02/10/23 02/12/23 oxyCODONE ER [OxyCONTIN] 10 mg PO BID PRN #16 tab 02/10/23 02/12/23 Acetaminophen [Tylenol] 325 mg PO Q6H PRN 02/12/23 02/12/23 Diclofenac Sodium 1% Gel [Voltaren 2 - 4 gm TOP QID PRN 02/14/23 02/14/23 Gel] Loperamide [Imodium] 2 mg PO QID PRN #15 cap 02/19/23 cefUROXime axetiL [Ceftin] 500 mg PO BID #20 tab 02/19/23 - Allergies Allergies/Adverse Reactions: Allergies Allergy/AdvReac Type Severity Reaction Status Date / Time amitriptyline [Amitriptyline] Allergy Intermediate Hallucinati Verified 02/21/23 16:43 ons heparinoids Allergy Intermediate Rash Verified 02/21/23 16:43 baclofen Allergy Unknown Verified 02/21/23 16:43 celecoxib Allergy Unknown Verified 02/21/23 16:43 diphenhydramine Allergy paradoxical Verified 02/21/23 16:43 reaction divalproex sodium Allergy pancreatiti Verified 02/21/23 16:43 [From Depakote] s glucosamine Allergy Unknown Verified 02/21/23 16:43 naproxen Allergy GI pain Verified 02/21/23 16:43 oxcarbazepine Allergy Unknown Verified 02/21/23 16:43 [From Trileptal] pregabalin [From Lyrica] Allergy pancreatiti Verified 02/21/23 16:43 s - Social History Does the pt smoke?: No Smoking Status: Former smoker Does the pt drink ETOH?: Yes Does the pt have substance abuse?: No - Immunizations Immunizations are current?: Yes - POLST Patient has POLST: No POLST Status: Full Code PD ED PE NORMAL - Vitals Vital signs reviewed: Yes - General General: Alert and oriented X 3, Other (He appears uncomfortable) - Abdomen Abdomen: Normal bowel sounds, Soft, Other (Suprapubic tenderness) - Male Male : Other (There is a Gomez catheter in place with urine in the bag. When I unhook the bag from the Gomez the Gomez drains fine. When I hooked the bag back up to the Gomez there is no drainage.) - Neuro Neuro: Alert and oriented X 3, Normal speech Results - Vitals Vitals: Vital Signs - 24 hr 02/21/23 16:37 Temperature 37.1 C Heart Rate 72 Respiratory 18 Rate Blood Pressure 146/64 H O2 Saturation 99 Oxygen O2 Source Room air PD Medical Decision Making - ED course ED course: He presents with a Gomez catheter that is not draining. It was actually a problem between the bag and the Gomez itself. A new leg bag fixed the problem. It was draining fine after that. Departure - Departure Disposition: 01 Home, Self Care Clinical Impression: Gomez catheter problem Qualifiers: Encounter type: initial encounter Qualified Code(s): T83.9XXA - Unspecified complication of genitourinary prosthetic device, implant and graft, initial encounter Condition: Stable Record reviewed to determine appropriate education?: Yes Instructions: ED Catheter Care Gomez, Leg Bag Care Dc Comments: As discussed, if this happens again you can simply unhook the tubing between the end of the catheter, the tannish part, and the clear part and then retook them together. That should fix the problem. Follow-up with your urologist, next Available appointment. Return for new or worsening symptoms.
[2023-02-21 16:45] VITALS: BP 146/64
== END 2023-02-21 17:42 | disposition home or self-care (01) ==
LOC: EDUNIT# → ED 16:30
DX: T83.098A Other mechanical complication of other urinary catheter, initial encounter (principal); R33.8 Other retention of urine; Z87.891 Personal history of nicotine dependence
CPT/HCPCS: 99283

== ENCOUNTER 2023-02-23 15:17 | Emergency (ER) | payer MEDICARE, OTHER ==
--- NOTE | 2023-02-23 16:19 | ED Physician Documentation ---
PD HPI MALE - Stated complaint Stated Complaint: MALE - Chief complaint Chief Complaint: Abd Pain - History obtained from History obtained from: Patient, Family - History of Present Illness Timing - onset: How many days ago (several) Timing - duration: Days (several) Timing - details: Gradual onset Pain level max: 3 Pain level now: 3 - Additional information Additional information: 82-year-old male presents to the emergency department complaining of his Bobby catheter stopped draining. Has a history of prostate and bladder cancer. He states that he has part of the lining of his bladder that sloughs off, he has blood clots as well. No fevers. No chills. Nothing seems to make it better or worse. Review of Systems Constitutional: denies: Fever GI: denies: Vomiting Skin: denies: Rash Neurologic: denies: Headache PD PAST MEDICAL HISTORY - Past Medical History Cardiovascular: Hypertension Respiratory: Sleep apnea Neuro: Seizure disorder Endocrine/Autoimmune: None GI: GERD, Pancreatitis : Kidney stones, Other HEENT: Chronic hearing loss, Other Psych: Anxiety Musculoskeletal: Osteoarthritis, Chronic back pain Derm: Psoriasis - Past Surgical History Past Surgical History: Yes General: Cholecystectomy, Appendectomy, Bowel surgery, Splenectomy Ortho: Hip replacement, Arthroscopic surgery HEENT: Tonsil/Adenoidectomy, Other - Present Medications Home Medications: Ambulatory Orders Medication Instructions Recorded Confirmed Aspirin EC [Ecotrin] 81 mg PO DAILY 06/27/13 02/12/23 Vit A,C & E/Lutein/Minerals 1 each PO DAILY 06/27/13 02/12/23 [Ocuvite with Lutein Tablet] Cyanocobalamin (Vitamin B-12) 1,000 mcg PO DAILY 02/09/14 02/12/23 [Vitamin B-12] Cholecalciferol (Vitamin D3) 2,000 units ORAL DAILY 05/03/14 02/12/23 [Vitamin D3] levOCARNitine tartrate 250 mg PO BID 05/09/18 02/12/23 [l-Carnitine] polyethylene glycoL 3350 [Miralax] 17 gm PO DAILY 01/06/19 02/12/23 Finasteride 5 mg PO DAILY PM 02/21/19 02/12/23 Mirabegron [Myrbetriq] 50 mg PO DAILY PM 02/21/19 02/12/23 Famotidine [Pepcid] 20 mg PO BID 07/28/19 02/12/23 Phenytoin Infatab [Dilantin 100 mg PO QPM 07/28/19 02/19/23 Infatab] [place]-3/Dha/Epa/Fish Oil [Fish Oil 1,000 mg PO DAILY 11/29/21 02/12/23 1,000 mg Softgel] Oxycodone Myristate [Xtampza ER] 13.5 mg PO TID 11/29/21 02/12/23 oxyCODONE [Roxicodone] 5 mg PO TID PRN 12/01/21 02/12/23 LORazepam [Ativan] 0.5 mg PO QID PRN 02/07/23 02/12/23 Oxycodone HCl 20 mg PO TID PRN 02/07/23 02/12/23 Phenytoin [Dilantin] 200 mg PO HS 02/07/23 02/12/23 Lactobacillus Acidophilus 1 each PO DAILY #4 tablet 02/10/23 02/12/23 [Probiotic Acidophilus] Metoprolol Succinate [Toprol Xl] 12.5 mg PO DAILY #15 tab 02/10/23 02/12/23 Simethicone [Mylicon] 80 mg PO QID #60 tab 02/10/23 02/12/23 metroNIDAZOLE [Flagyl] 500 mg PO TID #12 tab 02/10/23 02/12/23 oxyCODONE ER [OxyCONTIN] 10 mg PO BID PRN #16 tab 02/10/23 02/12/23 Acetaminophen [Tylenol] 325 mg PO Q6H PRN 02/12/23 02/12/23 Diclofenac Sodium 1% Gel [Voltaren 2 - 4 gm TOP QID PRN 02/14/23 02/14/23 Gel] Loperamide [Imodium] 2 mg PO QID PRN #15 cap 02/19/23 cefUROXime axetiL [Ceftin] 500 mg PO BID #20 tab 02/19/23 - Allergies Allergies/Adverse Reactions: Allergies Allergy/AdvReac Type Severity Reaction Status Date / Time amitriptyline [Amitriptyline] Allergy Intermediate Hallucinati Verified 02/23/23 15:55 ons heparinoids Allergy Intermediate Rash Verified 02/23/23 15:55 baclofen Allergy Unknown Verified 02/23/23 15:55 celecoxib Allergy Unknown Verified 02/23/23 15:55 diphenhydramine Allergy paradoxical Verified 02/23/23 15:55 reaction divalproex sodium Allergy pancreatiti Verified 02/23/23 15:55 [From Depakote] s glucosamine Allergy Unknown Verified 02/23/23 15:55 naproxen Allergy GI pain Verified 02/23/23 15:55 oxcarbazepine Allergy Unknown Verified 02/23/23 15:55 [From Trileptal] pregabalin [From Lyrica] Allergy pancreatiti Verified 02/23/23 15:55 s - Social History Does the pt smoke?: No Smoking Status: Former smoker Does the pt drink ETOH?: Yes Does the pt have substance abuse?: No - Immunizations Immunizations are current?: Yes - POLST Patient has POLST: No POLST Status: Full Code PD ED PE NORMAL - Vitals Vital signs reviewed: Yes - General General: Alert and oriented X 3, No acute distress - HEENT HEENT: Moist mucous membranes - Neck Neck: Supple, no meningeal sign - Cardiac Cardiac: RRR - Respiratory Respiratory: No respiratory distress, Clear bilaterally - Abdomen Abdomen: Soft, Non tender, Non distended - Male Male : Other (bobby in place, no bleeding) - Derm Derm: Warm and dry - Neuro Neuro: Alert and oriented X 3 - Psych Psych: Normal mood, Normal affect Results - Vitals Vitals: Vital Signs - 24 hr 02/23/23 02/23/23 15:48 16:52 Temperature 36.3 C L Heart Rate 71 70 Respiratory 16 18 Rate Blood Pressure 144/67 H 158/75 H O2 Saturation 98 100 Oxygen O2 Source Room air PD Medical Decision Making - ED course Complexity details: reviewed results, re-evaluated patient, considered differential, d/w patient ED course: The patient's Bobby catheter was replaced with a larger Bobby catheter. This is draining without difficulty. Irrigation was performed. 400 mL of saline was instilled into the bladder and all 400 mL returned easily through the catheter. We will have him follow-up with his urologist for further care. Patient was also given a dose of IM morphine for pain. 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 Patient counseled regarding signs and symptoms for which I believe and urgent re-evaluation would be necessary. Patient with good understanding of and agreement to plan and is comfortable going home at this time This document was made in part using voice recognition software. While efforts are made to proofread this document, sound alike and grammatical errors may occur. Departure - Departure Disposition: 01 Home, Self Care Clinical Impression: Bobby catheter problem Qualifiers: Encounter type: initial encounter Qualified Code(s): T83.9XXA - Unspecified complication of genitourinary prosthetic device, implant and graft, initial encounter Condition: Good Instructions: ED Catheter Care Bobby Follow-Up: Bay Cruz MD [Primary Care Provider] - Within 1 week Comments: Your Bobby catheter was changed to a larger size today, this should help to prevent clotting. Please make sure you are drinking plenty of water. Please follow-up with your doctor for further care. Return if you worsen Discharge Date/Time: 02/23/23 17:37
[2023-02-23] MEDS ORDERED: MORPHINE 2 MG/ML CARPUJECT IM STA (16:40)
[2023-02-23 16:52] VITALS: BP 158/75
== END 2023-02-23 17:37 | disposition home or self-care (01) ==
LOC: ED 15:17
DX: R33.9 Retention of urine, unspecified (principal); T83.098A Other mechanical complication of other urinary catheter, initial encounter; Y73.2 Prosthetic and other implants, materials and accessory gastroenterology and urology devices associated with adverse incidents; R10.2 Pelvic and perineal pain; G89.29 Other chronic pain; Z87.891 Personal history of nicotine dependence
CPT/HCPCS: 51700; 99283

== ENCOUNTER 2023-04-02 13:50 | Outpatient (CLI) | payer MEDICARE, OTHER | END 2023-04-02 13:51 | disposition home or self-care (01) | LOC: LAB.N 13:50 | PROVIDERS: ATTEND Family Medicine | DX: R56.9 Unspecified convulsions (principal) | CPT/HCPCS: 36415; 80185 ==

== ENCOUNTER 2023-04-10 16:20 | Emergency (ER) | payer MEDICARE, OTHER ==
[2023-04-10] MEDS ORDERED: KETOROLAC 15 MG/ML VIAL IVP STA (17:05)
[2023-04-10] MEDS ORDERED: SODIUM CHLORIDE 0.9% 1,000 ML IV STA (17:05)
--- NOTE | 2023-04-10 17:07 | ED Physician Documentation ---
History of Present Illness - Stated complaint Stated Complaint: BACK/NECK PX, LEG PX - Chief complaint Chief Complaint: Back Pain - History obtained from History obtained from: Patient, Family - Additonal information Additional information: 82-year-old gentleman who has chronic pain syndrome and is undergoing treatment for stage II bladder cancer presents with his for the evaluation of confusion that started today. Is associated with cloudy urine and shaking chills but no measured fevers. He has chronic back issues with known spinal stenosis in both the cervical and lumbar spines and has more numbness in his legs than usual. He is not incontinent of bowel. He does have a chronic indwelling Gomez. He does complain of 3 days worth of gradual onset global headache that his usual narcotic pain medication has not been helping him with. He did take a single dose of fosfomycin about a week ago for a presumed bladder infection m prescribed by his urologist, Dr. Evans. PD PAST MEDICAL HISTORY - Past Medical History Cardiovascular: Hypertension Respiratory: Sleep apnea Neuro: Seizure disorder Endocrine/Autoimmune: None GI: GERD, Pancreatitis : Kidney stones, Other HEENT: Chronic hearing loss, Other Psych: Anxiety Musculoskeletal: Osteoarthritis, Chronic back pain Derm: Psoriasis - Past Surgical History Past Surgical History: Yes General: Cholecystectomy, Appendectomy, Bowel surgery, Splenectomy Ortho: Hip replacement, Arthroscopic surgery HEENT: Tonsil/Adenoidectomy, Other - Present Medications Home Medications: Ambulatory Orders Medication Instructions Recorded Confirmed Aspirin EC [Ecotrin] 81 mg PO DAILY 06/27/13 02/12/23 Vit A,C & E/Lutein/Minerals 1 each PO DAILY 06/27/13 02/12/23 [Ocuvite with Lutein Tablet] Cyanocobalamin (Vitamin B-12) 1,000 mcg PO DAILY 02/09/14 02/12/23 [Vitamin B-12] Cholecalciferol (Vitamin D3) 2,000 units ORAL DAILY 05/03/14 02/12/23 [Vitamin D3] levOCARNitine tartrate 250 mg PO BID 05/09/18 02/12/23 [l-Carnitine] polyethylene glycoL 3350 [Miralax] 17 gm PO DAILY 01/06/19 02/12/23 Finasteride 5 mg PO DAILY PM 02/21/19 02/12/23 Mirabegron [Myrbetriq] 50 mg PO DAILY PM 02/21/19 02/12/23 Famotidine [Pepcid] 20 mg PO BID 07/28/19 02/12/23 Phenytoin Infatab [Dilantin 100 mg PO QPM 07/28/19 02/19/23 Infatab] [place]-3/Dha/Epa/Fish Oil [Fish Oil 1,000 mg PO DAILY 11/29/21 02/12/23 1,000 mg Softgel] Oxycodone Myristate [Xtampza ER] 13.5 mg PO TID 11/29/21 02/12/23 oxyCODONE [Roxicodone] 5 mg PO TID PRN 12/01/21 02/12/23 LORazepam [Ativan] 0.5 mg PO QID PRN 02/07/23 02/12/23 Oxycodone HCl 20 mg PO TID PRN 02/07/23 02/12/23 Phenytoin [Dilantin] 200 mg PO HS 02/07/23 02/12/23 Lactobacillus Acidophilus 1 each PO DAILY #4 tablet 02/10/23 02/12/23 [Probiotic Acidophilus] Metoprolol Succinate [Toprol Xl] 12.5 mg PO DAILY #15 tab 02/10/23 02/12/23 Simethicone [Mylicon] 80 mg PO QID #60 tab 02/10/23 02/12/23 metroNIDAZOLE [Flagyl] 500 mg PO TID #12 tab 02/10/23 02/12/23 oxyCODONE ER [OxyCONTIN] 10 mg PO BID PRN #16 tab 02/10/23 02/12/23 Acetaminophen [Tylenol] 325 mg PO Q6H PRN 02/12/23 02/12/23 Diclofenac Sodium 1% Gel [Voltaren 2 - 4 gm TOP QID PRN 02/14/23 02/14/23 Gel] Loperamide [Imodium] 2 mg PO QID PRN #15 cap 02/19/23 cefUROXime axetiL [Ceftin] 500 mg PO BID #20 tab 02/19/23 Cefdinir 300 mg PO BID #20 cap 04/10/23 - Allergies Allergies/Adverse Reactions: Allergies Allergy/AdvReac Type Severity Reaction Status Date / Time amitriptyline [Amitriptyline] Allergy Intermediate Hallucinati Verified 04/10/23 16:34 ons heparinoids Allergy Intermediate Rash Verified 04/10/23 16:34 baclofen Allergy Unknown Verified 04/10/23 16:34 celecoxib Allergy Unknown Verified 04/10/23 16:34 diphenhydramine Allergy paradoxical Verified 04/10/23 16:34 reaction divalproex sodium Allergy pancreatiti Verified 04/10/23 16:34 [From Depakote] s glucosamine Allergy Unknown Verified 04/10/23 16:34 levetiracetam [From Keppra] Allergy Unknown Verified 04/10/23 16:34 naproxen Allergy GI pain Verified 04/10/23 16:34 oxcarbazepine Allergy Unknown Verified 04/10/23 16:34 [From Trileptal] pregabalin [From Lyrica] Allergy pancreatiti Verified 04/10/23 16:34 s - Social History Does the pt smoke?: No Smoking Status: Former smoker Does the pt drink ETOH?: Yes Does the pt have substance abuse?: No - Immunizations Immunizations are current?: Yes - POLST Patient has POLST: No POLST Status: Full Code PD ED PE NORMAL - Vitals Vital signs reviewed: Yes - General General: Other (He is alert and oriented to person and place and recent events as well as what he had for breakfast. He states the date is April 12.) - HEENT HEENT: PERRL, EOMI - Neck Neck: Supple, no meningeal sign, No bony TTP - Cardiac Cardiac: RRR, No murmur - Respiratory Respiratory: No respiratory distress, Clear bilaterally - Abdomen Abdomen: Non tender - Male Male : Other (Gomez in place with cloudy urine but not opaque.) - Back Back: No CVA TTP, No spinal TTP - Extremities Extremities: Other (The patient has equal and normal Achilles and patellar reflexes bilaterally. Mildly diminished sensation in the right leg not consistent with a dermatomal pattern. Patient denies saddle anesthesia. Normal strength in flexion-extension at the ankles, knees, and flexion of the hips.) Results - Vitals Vitals: Vital Signs - 24 hr 04/10/23 04/10/23 16:28 18:33 Temperature 37.1 C Heart Rate 69 67 Respiratory 18 16 Rate Blood Pressure 175/73 H 158/75 H O2 Saturation 99 100 Oxygen O2 Source Room air - EKG (time done) 1707 EKG releavant findings:: EKG personally interpreted by author of this note. Relevant findings are: Rate: Rate (enter#) (69) Rhythm: NSR Intervals: RBBB QRS: Normal Ischemia: Normal ST segments - Labs Labs: Laboratory Tests 04/10/23 04/10/23 04/10/23 17:36 17:52 17:52 WBC 11.6 H RBC 2.85 L Hgb 9.5 L Hct 29.1 L MCV 102.1 H MCH 33.3 H MCHC 32.6 RDW 14.1 Plt Count 522 H MPV 9.2 Neut # (Auto) 10.3 H Lymph # (Auto) 0.7 L [place] # (Auto) 0.5 Eos # (Auto) 0.0 Baso # (Auto) 0.0 Absolute Nucleated RBC 0.00 Nucleated RBC % 0.0 Sodium 135 Potassium 3.8 Chloride 104 Carbon Dioxide 25 Anion Gap 6.0 BUN 20 Creatinine 0.6 Estimated GFR (MDRD) 129 Glucose 115 H Lactic Acid Calcium 9.5 Total Bilirubin 0.4 AST 19 ALT 13 Alkaline Phosphatase 106 Total Protein 7.3 Albumin 3.5 Globulin 3.8 Albumin/Globulin Ratio 0.9 L Urine Color RED/BLOODY Urine Clarity CLOUDY Urine pH 8.5 H Ur Specific [place] 1.015 Urine Protein 100 H Urine Glucose (UA) NEGATIVE Urine Ketones NEGATIVE Urine Occult Blood LARGE H Urine Nitrite POSITIVE H Urine Bilirubin NEGATIVE Urine Urobilinogen 0.2 (NORMAL) Ur Leukocyte Esterase LARGE H Urine RBC TNTC H Urine WBC >25 H Ur Squamous Epith Cells NONE SEEN Amorphous Sediment Few Urine Bacteria Moderate H Urine Mucus Marked Strands Urine Culture Comments INDICATED Phenytoin 14.1 04/10/23 17:52 WBC RBC Hgb Hct MCV MCH MCHC RDW Plt Count MPV Neut # (Auto) Lymph # (Auto) [place] # (Auto) Eos # (Auto) Baso # (Auto) Absolute Nucleated RBC Nucleated RBC % Sodium Potassium Chloride Carbon Dioxide Anion Gap BUN Creatinine Estimated GFR (MDRD) Glucose Lactic Acid 1.4 Calcium Total Bilirubin AST ALT Alkaline Phosphatase Total Protein Albumin Globulin Albumin/Globulin Ratio Urine Color Urine Clarity Urine pH Ur Specific [place] Urine Protein Urine Glucose (UA) Urine Ketones Urine Occult Blood Urine Nitrite Urine Bilirubin Urine Urobilinogen Ur Leukocyte Esterase Urine RBC Urine WBC Ur Squamous Epith Cells Amorphous Sediment Urine Bacteria Urine Mucus Urine Culture Comments Phenytoin - Rads (name of study) CT of the head is unremarkable Relevant Findings:: Final report received, EMP independent interpretation of bernadette MANNING Medical Decision Making - ED course ED course: 82-year-old gentleman has very mild confusion, back and leg pain. He does have chronic spinal stenosis in the cervical and lumbar spines. No evidence of acute cauda equina. He was worked up here with a head CT that was negative. Blood work showing mild leukocytosis with chronic anemia actually better than more recent prior values. Normal CMP and lactate. Infected appearing urine. Therapeutic Dilantin level. His Gomez was replaced and he was administered IV Rocephin here for UTI. Departure - Departure Disposition: 01 Home, Self Care Clinical Impression: Anemia Qualifiers: Anemia type: unspecified type Qualified Code(s): D64.9 - Anemia, unspecified UTI (urinary tract infection) Qualifiers: Urinary tract infection type: catheter-associated UTI Indwelling urinary catheter type: indwelling urethral catheter Encounter type: initial encounter Qualified Code(s): T83.511A - Infection and inflammatory reaction due to indwelling urethral catheter, initial encounter; N39.0 - Urinary tract infection, site not specified Condition: Good Record reviewed to determine appropriate education?: Yes Instructions: ED UTI Cystitis Male Prescriptions: Cefdinir 300 mg PO BID #20 cap Comments: You were seen today for confusion, neck and back pain with known spinal stenosis, and your Gomez catheter was in place. We found a urinary infection with mild elevation in your white blood cell count. You are anemic but better than more recent prior values. CAT scan of the head was normal. You received a dose of IV Rocephin here and we are treating you with antibiotics. We are performing a urine culture. Your Dilantin level was therapeutic at 14. Recommend you talk with your primary care physician about a referral to a back surgeon for evaluation of whether or not your spinal stenosis can be addressed surgically. Continue current medications otherwise. Return for new or worsening symptoms.
[2023-04-10 17:44] LABS: BILIRUBIN,URINE NEGATIVE (NEGATIVE); GLUCOSE, URINE (UA) NEGATIVE (NEGATIVE); KETONES,URINE (UA) NEGATIVE (NEGATIVE); LEUKOCYTE ESTERASE, URINE LARGE (NEGATIVE); NITRITE,URINE POSITIVE (NEGATIVE); OCCULT BLOOD,URINE LARGE (NEGATIVE); PH,URINE 8.5 PH (5.0-7.5); PROTEIN,URINE 100 mg/dL (NEGATIVE); UROBILINOGEN,URINE 0.2 (NORMAL) E.U./dL (NORMAL)
[2023-04-10 17:45] LABS: CLARITY,URINE CLOUDY (CLEAR)
[2023-04-10 17:53] LABS: AMORPHOUS SEDIMENT,UR Few /LPF; BACTERIA,URINE Moderate /HPF (None Seen); MUCUS,URINE Marked Strands; RBC,URINE TNTC /HPF (0-5); SQUAMOUS EPITHELIAL CELL,UR NONE SEEN (<= Few); WBC,URINE >25 /HPF (0-3)
[2023-04-10 18:09] LABS: BASOPHILS % (AUTO) 0.3 %; EOSINOPHILS % (AUTO) 0.1 %; HCT - HEMATOCRIT 29.1 % (42.0-52.0); HGB - HEMOGLOBIN 9.5 g/dL (14.0-18.0); LYMPHOCYTES # (AUTO) 0.7 10^3/uL (1.5-3.5); LYMPHOCYTES % (AUTO) 6.4 %; MEAN CORPUSCULAR HEMOGLOBIN 33.3 pg (27.0-31.0); MEAN CORPUSCULAR HGB CONC 32.6 g/dL (32.0-36.0); MEAN CORPUSCULAR VOLUME 102.1 fL (80.0-94.0); MEAN PLATELET VOLUME 9.2 fL (7.4-11.4); MONOCYTES # (AUTO) 0.5 10^3/uL (0.0-1.0); MONOCYTES % (AUTO) 4.1 %; NEUTROPHILS # (AUTO) 10.3 10^3/uL (1.5-6.6); NEUTROPHILS % (AUTO) 88.8 %; PLT - PLATELET COUNT 522 10^3/uL (130-450); RED BLOOD COUNT 2.85 10^6/uL (4.70-6.10); RED CELL DISTRIBUTION WIDTH 14.1 % (12.0-15.0); WHITE BLOOD COUNT 11.6 x10^3/uL (4.8-10.8)
[2023-04-10 18:15] LABS: ALBUMIN 3.5 g/dL (3.2-5.5); ALBUMIN/GLOBULIN RATIO 0.9 (1.0-2.2); BILIRUBIN,TOTAL 0.4 mg/dL (0.2-1.0); CALCIUM 9.5 mg/dL (8.5-10.3); CREATININE 0.6 mg/dL (0.6-1.2); PHENYTOIN (DILANTIN) 14.1 ug/mL; POTASSIUM 3.8 mmol/L (3.5-5.0); TOTAL PROTEIN 7.3 g/dL (6.7-8.2)
[2023-04-10] MEDS ORDERED: HYDROmorphone 1 MG/ML CARPUJECT IVP STA (18:21)
[2023-04-10] MEDS ORDERED: cefTRIAXone 1 GM VIAL IVP STA (18:49)
--- NOTE | 2023-04-10 18:57 | CT Report ---
PROCEDURE: HEAD WO INDICATIONS: confusion headache TECHNIQUE: Noncontrast 4.5 mm thick angled axial sections acquired from the foramen magnum to the vertex. For r adiation dose reduction, the following was used: automated exposure control, adjustment of mA and/or kV according to patient size. COMPARISON: Head CT 02/05/2023. FINDINGS: Image quality: Excellent. CSF spaces: Basal cisterns are patent. No extra-axial fluid collections. Ventricles are normal in size and shape. Brain: No midline shift. No intracranial masses or hemorrhage. No area of hypodensity in a vascula r distribution to suggest acute infarction. 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 Age-related parenchymal loss. Skull and face: Calvarium and visualized facial bones are intact, without suspicious lesions. Sinuses: Visualized sinuses and mastoids are clear. IMPRESSION: No acute intracranial abnormality. Reviewed by: Gamaliel Stock MD on 04/10/2023 6:56 PM PDT Approved by: Gamaliel Stock MD on 04/10/2023 6:56 PM PDT Station ID: [id number]
[2023-04-10 19:38] VITALS: BP 157/85
--- NOTE | 2023-04-13 15:06 | ED Physician Documentation ---
ED Addendum - Addendum Addendum: 04/13/23 15:05Cx reviewed, sent rx for levaquin 250mg po daily x 10 days to [facility].
== END 2023-04-10 19:40 | disposition home or self-care (01) ==
LOC: ED 16:20
DX: T83.511A Infection and inflammatory reaction due to indwelling urethral catheter, initial encounter (principal); M48.02 Spinal stenosis, cervical region; M48.061 Spinal stenosis, lumbar region without neurogenic claudication; D64.9 Anemia, unspecified; Z87.891 Personal history of nicotine dependence
CPT/HCPCS: 36415; 51702; 70450; 80053; 80185; 81001; 83605; 85025; 87040; 87086; 87181; 93005; 96374; 96375; 99284; J1170

== ENCOUNTER 2023-05-14 12:47 | Outpatient (CLI) | payer MEDICARE, OTHER | END 2023-05-14 12:48 | disposition home or self-care (01) | LOC: LAB.N 12:47 | PROVIDERS: ATTEND Family Medicine | DX: R56.9 Unspecified convulsions (principal) | CPT/HCPCS: 36415; 80185 ==

== ENCOUNTER 2023-06-13 15:11 | Emergency (ER) | payer MEDICARE, OTHER ==
--- NOTE | 2023-06-13 15:35 | ED Physician Documentation ---
PD HPI ABD PAIN - Stated complaint Stated Complaint: BLOOD IN CATHETER - Chief complaint Chief Complaint: Abd Pain - History obtained from History obtained from: Patient, Family - Additional information Additional information: 83-year-old gentleman with chronic indwelling Gomez catheter related to bladder cancer has completed radiotherapy and chemo and is prepping for immunotherapy starting later this month. Starting this morning he said brown clotted urine. He feels okay. No fevers or chills or flank pain. PD PAST MEDICAL HISTORY - Past Medical History Cardiovascular: Hypertension Respiratory: Sleep apnea Neuro: Seizure disorder Endocrine/Autoimmune: None GI: GERD, Pancreatitis : Kidney stones, Other HEENT: Chronic hearing loss, Other Psych: Anxiety Musculoskeletal: Osteoarthritis, Chronic back pain Derm: Psoriasis - Past Surgical History Past Surgical History: Yes General: Cholecystectomy, Appendectomy, Bowel surgery, Splenectomy Ortho: Hip replacement, Arthroscopic surgery HEENT: Tonsil/Adenoidectomy, Other - Present Medications Home Medications: Ambulatory Orders Medication Instructions Recorded Confirmed Aspirin EC [Ecotrin] 81 mg PO DAILY 06/27/13 02/12/23 Vit A,C & E/Lutein/Minerals 1 each PO DAILY 06/27/13 02/12/23 [Ocuvite with Lutein Tablet] Cyanocobalamin (Vitamin B-12) 1,000 mcg PO DAILY 02/09/14 02/12/23 [Vitamin B-12] Cholecalciferol (Vitamin D3) 2,000 units ORAL DAILY 05/03/14 02/12/23 [Vitamin D3] levOCARNitine tartrate 250 mg PO BID 05/09/18 02/12/23 [l-Carnitine] polyethylene glycoL 3350 [Miralax] 17 gm PO DAILY 01/06/19 02/12/23 Finasteride 5 mg PO DAILY PM 02/21/19 02/12/23 Mirabegron [Myrbetriq] 50 mg PO DAILY PM 02/21/19 02/12/23 Famotidine [Pepcid] 20 mg PO BID 07/28/19 02/12/23 Phenytoin Infatab [Dilantin 100 mg PO QPM 07/28/19 02/19/23 Infatab] [place]-3/Dha/Epa/Fish Oil [Fish Oil 1,000 mg PO DAILY 11/29/21 02/12/23 1,000 mg Softgel] Oxycodone Myristate [Xtampza ER] 13.5 mg PO TID 11/29/21 02/12/23 oxyCODONE [Roxicodone] 5 mg PO TID PRN 12/01/21 02/12/23 LORazepam [Ativan] 0.5 mg PO QID PRN 02/07/23 02/12/23 Oxycodone HCl 20 mg PO TID PRN 02/07/23 02/12/23 Phenytoin [Dilantin] 200 mg PO HS 02/07/23 02/12/23 Lactobacillus Acidophilus 1 each PO DAILY #4 tablet 02/10/23 02/12/23 [Probiotic Acidophilus] Metoprolol Succinate [Toprol Xl] 12.5 mg PO DAILY #15 tab 02/10/23 02/12/23 Simethicone [Mylicon] 80 mg PO QID #60 tab 02/10/23 02/12/23 metroNIDAZOLE [Flagyl] 500 mg PO TID #12 tab 02/10/23 02/12/23 oxyCODONE ER [OxyCONTIN] 10 mg PO BID PRN #16 tab 02/10/23 02/12/23 Acetaminophen [Tylenol] 325 mg PO Q6H PRN 02/12/23 02/12/23 Diclofenac Sodium 1% Gel [Voltaren 2 - 4 gm TOP QID PRN 02/14/23 02/14/23 Gel] Loperamide [Imodium] 2 mg PO QID PRN #15 cap 02/19/23 cefUROXime axetiL [Ceftin] 500 mg PO BID #20 tab 02/19/23 Cefdinir 300 mg PO BID #20 cap 04/10/23 levoFLOXacin [Levofloxacin] 250 mg PO DAILY #10 tablet 04/13/23 levoFLOXacin [Levofloxacin] 500 mg PO DAILY #9 tablet 06/13/23 - Allergies Allergies/Adverse Reactions: Allergies Allergy/AdvReac Type Severity Reaction Status Date / Time amitriptyline [Amitriptyline] Allergy Intermediate Hallucinati Verified 06/13/23 15:19 ons heparinoids Allergy Intermediate Rash Verified 06/13/23 15:19 baclofen Allergy Unknown Verified 06/13/23 15:19 celecoxib Allergy Unknown Verified 06/13/23 15:19 diphenhydramine Allergy paradoxical Verified 06/13/23 15:19 reaction divalproex sodium Allergy pancreatiti Verified 06/13/23 15:19 [From Depakote] s glucosamine Allergy Unknown Verified 06/13/23 15:19 levetiracetam [From Keppra] Allergy Unknown Verified 06/13/23 15:19 naproxen Allergy GI pain Verified 06/13/23 15:19 oxcarbazepine Allergy Unknown Verified 06/13/23 15:19 [From Trileptal] pregabalin [From Lyrica] Allergy pancreatiti Verified 06/13/23 15:19 s - Social History Does the pt smoke?: No Smoking Status: Never smoker Does the pt drink ETOH?: Yes Does the pt have substance abuse?: No - Immunizations Immunizations are current?: Yes - POLST Patient has POLST: No POLST Status: Full Code PD ED PE NORMAL - Vitals Vital signs reviewed: Yes - General General: Alert and oriented X 3, No acute distress - Abdomen Abdomen: Non tender - Male Male : Other (Urine in the bag and tube is purulent and brownish with a few small clots) - Neuro Neuro: Alert and oriented X 3, Normal speech Results - Vitals Vitals: Vital Signs - 24 hr 06/13/23 15:19 Temperature 36.5 C Heart Rate 69 Respiratory 16 Rate Blood Pressure 158/60 H O2 Saturation 99 Oxygen O2 Source Room air - Labs Labs: Laboratory Tests 06/13/23 16:18 Urine Color STRAW Urine Clarity CLOUDY Urine pH 7.0 Ur Specific [place] <=1.005 Urine Protein 30 H Urine Glucose (UA) NEGATIVE Urine Ketones NEGATIVE Urine Occult Blood LARGE H Urine Nitrite POSITIVE H Urine Bilirubin NEGATIVE Urine Urobilinogen 0.2 (NORMAL) Ur Leukocyte Esterase LARGE H Urine RBC 6-10 H Urine WBC >25 H Ur Squamous Epith Cells NONE SEEN Amorphous Sediment Moderate Urine Bacteria Few Ur Microscopic Review INDICATED Urine Culture Comments INDICATED PD Medical Decision Making - ED course ED course: Urine looking more infected than anything else. We will replace catheter and get a fresh sample. He does not appear septic. Departure - Departure Disposition: 01 Home, Self Care Clinical Impression: Bladder cancer, UTI (urinary tract infection) Condition: Good Record reviewed to determine appropriate education?: Yes Instructions: ED UTI Cystitis Male Prescriptions: levoFLOXacin [Levofloxacin] 500 mg PO DAILY #9 tablet Comments: You were seen today for blood in your catheter and the urinalysis and the exam really suggest more of a UTI type of picture. I sent the prescription electronically to [facility] in [place]. We will culture your urine, the results should be done in 48-72 hours. If an antibiotic change is necessary we will call you. Return if worse in the meantime, especially if you develop increasing flank pain, fevers, or cannot keep down the medication. Forms: PCP List
[2023-06-13 16:24] LABS: BILIRUBIN,URINE NEGATIVE (NEGATIVE); GLUCOSE, URINE (UA) NEGATIVE (NEGATIVE); KETONES,URINE (UA) NEGATIVE (NEGATIVE); LEUKOCYTE ESTERASE, URINE LARGE (NEGATIVE); NITRITE,URINE POSITIVE (NEGATIVE); OCCULT BLOOD,URINE LARGE (NEGATIVE); PROTEIN,URINE 30 mg/dL (NEGATIVE); UROBILINOGEN,URINE 0.2 (NORMAL) E.U./dL (NORMAL)
[2023-06-13 16:28] LABS: CLARITY,URINE CLOUDY (CLEAR)
[2023-06-13 16:38] LABS: AMORPHOUS SEDIMENT,UR Moderate /LPF; BACTERIA,URINE Few /HPF (None Seen); SQUAMOUS EPITHELIAL CELL,UR NONE SEEN (<= Few); WBC,URINE >25 /HPF (0-3)
[2023-06-13] MEDS ORDERED: levoFLOXacin 250 MG TABLET PO STA (16:56)
[2023-06-13 17:15] VITALS: BP 146/76; O2SAT 100
== END 2023-06-13 17:19 | disposition home or self-care (01) ==
LOC: ED 15:11
DX: N39.0 Urinary tract infection, site not specified (principal); C67.9 Malignant neoplasm of bladder, unspecified; I10 Essential (primary) hypertension; Z79.82 Long term (current) use of aspirin; Z79.899 Other long term (current) drug therapy
CPT/HCPCS: 51702; 81001; 87077; 87086; 87181; 99283; A9270; 81003

== ENCOUNTER 2023-07-10 15:03 | Outpatient (CLI) | payer MEDICARE, OTHER | END 2023-07-10 15:04 | disposition home or self-care (01) | LOC: LAB.N 15:03 | PROVIDERS: ATTEND Family Medicine | DX: R56.9 Unspecified convulsions (principal) | CPT/HCPCS: 36415; 80185 ==

== ENCOUNTER 2023-08-09 12:33 | Emergency (ER) | payer MEDICARE, OTHER ==
[2023-08-09 12:53] VITALS: BP 150/72; O2SAT 100
--- NOTE | 2023-08-09 13:51 | ED Physician Documentation ---
History of Present Illness - Stated complaint Stated Complaint: SWOLLEN LIPS - Chief complaint Chief Complaint: Heent - History obtained from History obtained from: Patient - Additonal information Additional information: He has a history of bladder cancer and has been on Keytruda for about 6 weeks. About a week ago started develop painful mouth sores with swelling on both sides. Saw his oncologist a few days ago and was prescribed nystatin and acyclovir for either thrush and or mucosal shingles and he has not improved. No sores anywhere else. PD PAST MEDICAL HISTORY - Past Medical History Past Medical History: Yes Cardiovascular: Hypertension Respiratory: Sleep apnea Neuro: Seizure disorder Endocrine/Autoimmune: None GI: GERD, Pancreatitis : Kidney stones, Other HEENT: Chronic hearing loss, Other Psych: Anxiety Musculoskeletal: Osteoarthritis, Chronic back pain Derm: Psoriasis - Past Surgical History Past Surgical History: Yes General: Cholecystectomy, Appendectomy, Bowel surgery, Splenectomy Ortho: Hip replacement, Arthroscopic surgery HEENT: Tonsil/Adenoidectomy, Other - Present Medications Home Medications: Ambulatory Orders Medication Instructions Recorded Confirmed Aspirin EC [Ecotrin] 81 mg PO DAILY 06/27/13 02/12/23 Vit A,C & E/Lutein/Minerals 1 each PO DAILY 06/27/13 02/12/23 [Ocuvite with Lutein Tablet] Cyanocobalamin (Vitamin B-12) 1,000 mcg PO DAILY 02/09/14 02/12/23 [Vitamin B-12] Cholecalciferol (Vitamin D3) 2,000 units ORAL DAILY 05/03/14 02/12/23 [Vitamin D3] levOCARNitine tartrate 250 mg PO BID 05/09/18 02/12/23 [l-Carnitine] polyethylene glycoL 3350 [Miralax] 17 gm PO DAILY 01/06/19 02/12/23 Finasteride 5 mg PO DAILY PM 02/21/19 02/12/23 Mirabegron [Myrbetriq] 50 mg PO DAILY PM 02/21/19 02/12/23 Famotidine [Pepcid] 20 mg PO BID 07/28/19 02/12/23 Phenytoin Infatab [Dilantin 100 mg PO QPM 07/28/19 02/19/23 Infatab] [place]-3/Dha/Epa/Fish Oil [Fish Oil 1,000 mg PO DAILY 11/29/21 02/12/23 1,000 mg Softgel] Oxycodone Myristate [Xtampza ER] 13.5 mg PO TID 11/29/21 02/12/23 oxyCODONE [Roxicodone] 5 mg PO TID PRN 12/01/21 02/12/23 LORazepam [Ativan] 0.5 mg PO QID PRN 02/07/23 02/12/23 Oxycodone HCl 20 mg PO TID PRN 02/07/23 02/12/23 Phenytoin [Dilantin] 200 mg PO HS 02/07/23 02/12/23 Lactobacillus Acidophilus 1 each PO DAILY #4 tablet 02/10/23 02/12/23 [Probiotic Acidophilus] Metoprolol Succinate [Toprol Xl] 12.5 mg PO DAILY #15 tab 02/10/23 02/12/23 Simethicone [Mylicon] 80 mg PO QID #60 tab 02/10/23 02/12/23 metroNIDAZOLE [Flagyl] 500 mg PO TID #12 tab 02/10/23 02/12/23 oxyCODONE ER [OxyCONTIN] 10 mg PO BID PRN #16 tab 02/10/23 02/12/23 Acetaminophen [Tylenol] 325 mg PO Q6H PRN 02/12/23 02/12/23 Diclofenac Sodium 1% Gel [Voltaren 2 - 4 gm TOP QID PRN 02/14/23 02/14/23 Gel] Loperamide [Imodium] 2 mg PO QID PRN #15 cap 02/19/23 cefUROXime axetiL [Ceftin] 500 mg PO BID #20 tab 02/19/23 Cefdinir 300 mg PO BID #20 cap 04/10/23 levoFLOXacin [Levofloxacin] 250 mg PO DAILY #10 tablet 04/13/23 levoFLOXacin [Levofloxacin] 500 mg PO DAILY #9 tablet 06/13/23 Lidocaine HCl/Pf [Lidocaine HCl 2% 0.5 ml PO QID PRN #20 ml 08/09/23 200 mg/10 ml] dexAMETHasone [Dexamethasone] 0.5 mg PO QID #200 ml 08/09/23 - Allergies Allergies/Adverse Reactions: Allergies Allergy/AdvReac Type Severity Reaction Status Date / Time amitriptyline [Amitriptyline] Allergy Intermediate Hallucinati Verified 08/09/23 12:46 ons heparinoids Allergy Intermediate Rash Verified 08/09/23 12:46 baclofen Allergy Unknown Verified 08/09/23 12:46 celecoxib Allergy Unknown Verified 08/09/23 12:46 diphenhydramine Allergy paradoxical Verified 08/09/23 12:46 reaction divalproex sodium Allergy pancreatiti Verified 08/09/23 12:46 [From Depakote] s glucosamine Allergy Unknown Verified 08/09/23 12:46 levetiracetam [From Keppra] Allergy Unknown Verified 08/09/23 12:46 naproxen Allergy GI pain Verified 08/09/23 12:46 oxcarbazepine Allergy Unknown Verified 08/09/23 12:46 [From Trileptal] pregabalin [From Lyrica] Allergy pancreatiti Verified 08/09/23 12:46 s - Social History Does the pt smoke?: No Smoking Status: Never smoker Does the pt drink ETOH?: Yes Does the pt have substance abuse?: No - Immunizations Immunizations are current?: Yes - POLST Patient has POLST: No POLST Status: Full Code PD ED PE NORMAL - Vitals Vital signs reviewed: Yes - General General: Alert and oriented X 3, No acute distress - HEENT HEENT: PERRL, EOMI, Other (He has a diffuse mucositis on both sides with nonspecific lip sores and ulcers.) - Psych Psych: Normal mood, Normal affect Results - Vitals Vitals: Vital Signs - 24 hr 08/09/23 12:46 Temperature 36.5 C Heart Rate 69 Respiratory 16 Rate Blood Pressure 150/72 H O2 Saturation 100 Oxygen O2 Source Room air PD Medical Decision Making - ED course ED course: His oncologist did not think this was related to the Keytruda but the mucositis I think actually probably is so we will switch him from the nystatin and acyclovir to an oral lidocaine dexamethasone rinse. 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 Follow-up with your oncologist for a second opinion. I am prescribing dexamethasone steroid which should help with the underlying problem and then lidocaine for the pain. Both are swish and spit. I sent the prescriptions to [facility] in [place]. Return if worse.
== END 2023-08-09 14:26 | disposition home or self-care (01) ==
LOC: ED 12:33
DX: K12.31 Oral mucositis (ulcerative) due to antineoplastic therapy (principal); T45.1X5A Adverse effect of antineoplastic and immunosuppressive drugs, initial encounter; I10 Essential (primary) hypertension; Z79.82 Long term (current) use of aspirin; Z79.899 Other long term (current) drug therapy
CPT/HCPCS: 99282; 99284

== ENCOUNTER 2023-08-12 16:23 | Outpatient (CLI) | payer MEDICARE, OTHER | END 2023-08-12 16:24 | disposition home or self-care (01) | LOC: LAB.N 16:23 | PROVIDERS: ATTEND Family Medicine | DX: R56.9 Unspecified convulsions (principal) | CPT/HCPCS: 36415; 80185 ==

== ENCOUNTER 2023-09-04 05:12 | Outpatient (CLI) | payer MEDICARE, OTHER | END 2023-09-04 23:58 | disposition EMS.NT | LOC: EMS 05:12 | DX: R42 Dizziness and giddiness (principal); N39.0 Urinary tract infection, site not specified; C67.9 Malignant neoplasm of bladder, unspecified; Z96.0 Presence of urogenital implants; B37.0 Candidal stomatitis ==

== ENCOUNTER 2023-09-04 06:08 | Emergency (ER) | payer MEDICARE, OTHER ==
[2023-09-04] MEDS ORDERED: SODIUM CHLORIDE 0.9% 1,000 ML IV STA (07:18)
--- NOTE | 2023-09-04 07:21 | ED Physician Documentation ---
History of Present Illness - Stated complaint Stated Complaint: L FOOT PX/DIZZY - Chief complaint Chief Complaint: General - History obtained from History obtained from: Patient - Additonal information Additional information: 83-year-old gentleman presents with for the evaluation of disequilibrium, continued mouth sores, and numbness of the ball of the left foot. He has a history of bladder cancer and I saw him at the beginning of the month for painful mouth sores thought to be related to Keytruda, at that time he had already been treated for either thrush or mucosal shingles without relief. States that the mouth sores continue and he continues on dexamethasone/lidocaine swish and spit, in the interim his oncologist has added Magic mouthwash with Benadryl, Maalox. States that whenever he uses either mouthwash he gets dizzy if he minutes later. Since yesterday he feels like he has been having to hold onto things and noted this morning that the ball of his left foot was numb. He has been losing weight and has poor appetite related to his mouth sores. Review of Systems Constitutional: reports: Fatigue. denies: Fever, Chills Throat: reports: Oral lesions / sores Cardiac: denies: Chest pain / pressure, Palpitations Respiratory: denies: Dyspnea, Cough PD PAST MEDICAL HISTORY - Past Medical History Cardiovascular: Hypertension Respiratory: Sleep apnea Neuro: Seizure disorder Endocrine/Autoimmune: None GI: GERD, Pancreatitis : Kidney stones, Other HEENT: Chronic hearing loss, Other Psych: Anxiety Musculoskeletal: Osteoarthritis, Chronic back pain Derm: Psoriasis - Past Surgical History Past Surgical History: Yes General: Cholecystectomy, Appendectomy, Bowel surgery, Splenectomy Ortho: Hip replacement, Arthroscopic surgery HEENT: Tonsil/Adenoidectomy, Other - Present Medications Home Medications: Ambulatory Orders Medication Instructions Recorded Confirmed Aspirin EC [Ecotrin] 81 mg PO DAILY 06/27/13 02/12/23 Vit A,C & E/Lutein/Minerals 1 each PO DAILY 06/27/13 02/12/23 [Ocuvite with Lutein Tablet] Cyanocobalamin (Vitamin B-12) 1,000 mcg PO DAILY 02/09/14 02/12/23 [Vitamin B-12] Cholecalciferol (Vitamin D3) 2,000 units ORAL DAILY 05/03/14 02/12/23 [Vitamin D3] levOCARNitine tartrate 250 mg PO BID 05/09/18 02/12/23 [l-Carnitine] polyethylene glycoL 3350 [Miralax] 17 gm PO DAILY 01/06/19 02/12/23 Finasteride 5 mg PO DAILY PM 02/21/19 02/12/23 Mirabegron [Myrbetriq] 50 mg PO DAILY PM 02/21/19 02/12/23 Famotidine [Pepcid] 20 mg PO BID 07/28/19 02/12/23 Phenytoin Infatab [Dilantin 100 mg PO QPM 07/28/19 02/19/23 Infatab] [place]-3/Dha/Epa/Fish Oil [Fish Oil 1,000 mg PO DAILY 11/29/21 02/12/23 1,000 mg Softgel] Oxycodone Myristate [Xtampza ER] 13.5 mg PO TID 11/29/21 02/12/23 oxyCODONE [Roxicodone] 5 mg PO TID PRN 12/01/21 02/12/23 LORazepam [Ativan] 0.5 mg PO QID PRN 02/07/23 02/12/23 Oxycodone HCl 20 mg PO TID PRN 02/07/23 02/12/23 Phenytoin [Dilantin] 200 mg PO HS 02/07/23 02/12/23 Lactobacillus Acidophilus 1 each PO DAILY #4 tablet 02/10/23 02/12/23 [Probiotic Acidophilus] Metoprolol Succinate [Toprol Xl] 12.5 mg PO DAILY #15 tab 02/10/23 02/12/23 Simethicone [Mylicon] 80 mg PO QID #60 tab 02/10/23 02/12/23 metroNIDAZOLE [Flagyl] 500 mg PO TID #12 tab 02/10/23 02/12/23 oxyCODONE ER [OxyCONTIN] 10 mg PO BID PRN #16 tab 02/10/23 02/12/23 Acetaminophen [Tylenol] 325 mg PO Q6H PRN 02/12/23 02/12/23 Diclofenac Sodium 1% Gel [Voltaren 2 - 4 gm TOP QID PRN 02/14/23 02/14/23 Gel] Loperamide [Imodium] 2 mg PO QID PRN #15 cap 02/19/23 cefuroxime axetiL [Ceftin] 500 mg PO BID #20 tab 02/19/23 Cefdinir 300 mg PO BID #20 cap 04/10/23 levoFLOXacin [Levofloxacin] 250 mg PO DAILY #10 tablet 04/13/23 levoFLOXacin [Levofloxacin] 500 mg PO DAILY #9 tablet 06/13/23 Lidocaine HCl/Pf [Lidocaine HCl 2% 0.5 ml PO QID PRN #20 ml 08/09/23 200 mg/10 ml] dexAMETHasone [Dexamethasone] 0.5 mg PO QID #200 ml 08/09/23 Compounded Mouthwash 6 ml PO Q2H PRN #200 ml 09/04/23 - Allergies Allergies/Adverse Reactions: Allergies Allergy/AdvReac Type Severity Reaction Status Date / Time amitriptyline [Amitriptyline] Allergy Intermediate Hallucinati Verified 09/04/23 07:43 ons heparinoids Allergy Intermediate Rash Verified 09/04/23 07:43 baclofen Allergy Unknown Verified 09/04/23 07:43 celecoxib Allergy Unknown Verified 09/04/23 07:43 diphenhydramine Allergy paradoxical Verified 09/04/23 07:43 reaction divalproex sodium Allergy pancreatiti Verified 09/04/23 07:43 [From Depakote] s glucosamine Allergy Unknown Verified 09/04/23 07:43 levetiracetam [From Keppra] Allergy Unknown Verified 09/04/23 07:43 naproxen Allergy GI pain Verified 09/04/23 07:43 oxcarbazepine Allergy Unknown Verified 09/04/23 07:43 [From Trileptal] pregabalin [From Lyrica] Allergy pancreatiti Verified 09/04/23 07:43 s - Social History Does the pt smoke?: No Smoking Status: Never smoker Does the pt drink ETOH?: Yes Does the pt have substance abuse?: No - Immunizations Immunizations are current?: Yes - POLST Patient has POLST: No POLST Status: Full Code PD ED PE NORMAL - Vitals Vital signs reviewed: Yes - General General: Alert and oriented X 3, No acute distress - HEENT HEENT: PERRL, EOMI, Other (He has a fairly for severe mucositis of the lips and oral mucosa) - Cardiac Cardiac: RRR, No murmur - Respiratory Respiratory: No respiratory distress, Clear bilaterally - Abdomen Abdomen: Non tender - Back Back: No CVA TTP, No spinal TTP - Derm Derm: Normal color, Warm and dry - Extremities Extremities: No deformity, No tenderness to palpate, Normal ROM s pain, No edema, No calf tenderness / cord, Other (I am unable to elicit any tenderness or abnormal sensation of the left foot. His sensation is symmetric on both feet. No visible abnormality of the left foot.) - Neuro Neuro: Alert and oriented X 3, No motor deficit, No sensory deficit, Normal speech, Other (Normal speech, normal [id number] testing) Eye Opening: Spontaneous Motor: Obeys Commands Verbal: Oriented GCS Score: 15 - Psych Psych: Normal mood, Normal affect Results - Vitals Vitals: Vital Signs - 24 hr 09/04/23 09/04/23 09/04/23 07:05 07:36 09:18 Temperature 36.8 C 36.7 C Heart Rate 62 68 61 Respiratory 16 20 18 Rate Blood Pressure 125/61 149/78 H 148/75 H O2 Saturation 97 98 96 Oxygen O2 Source Room air - Labs Labs: Laboratory Tests 09/04/23 09/04/23 07:33 07:33 WBC 10.2 RBC 2.97 L Hgb 9.6 L Hct 29.2 L MCV 98.3 H MCH 32.3 H MCHC 32.9 RDW 16.3 H Plt Count 412 MPV 8.9 Neut # (Auto) 7.6 H Lymph # (Auto) 1.4 L [place] # (Auto) 1.2 H Eos # (Auto) 0.0 Baso # (Auto) 0.0 Absolute Nucleated RBC 0.00 Nucleated RBC % 0.0 Sodium 135 Potassium 4.0 Chloride 102 Carbon Dioxide 28 Anion Gap 5.0 L BUN 28 H Creatinine 0.9 Estimated GFR (MDRD) 80 L Glucose 103 Calcium 10.0 Magnesium 1.8 Total Bilirubin 0.3 AST 14 ALT 11 Alkaline Phosphatase 118 Total Protein 6.8 Albumin 3.7 Globulin 3.1 Albumin/Globulin Ratio 1.2 - Rads (name of study) Head CT is unremarkable Relevant Findings:: Final report received, EMP independent interpretation of test PD Medical Decision Making - ED course ED course: 83-year-old gentleman with bladder cancer is having a lot of problems with what looks like mucositis related to checkpoint inhibitor. Now has a new disequilibrium since yesterday. CT of the head was unremarkable. He was administered IV fluids and was feeling better. After some extensive research decided to compound a new Magic mouthwash with morphine but he will continue dexamethasone and prednisone topically/orally respectively. Departure - Departure Disposition: 01 Home, Self Care Clinical Impression: Mucositis due to antineoplastic therapy, Dehydration, Dizziness Condition: Good Instructions: ED Dizziness UKO Prescriptions: Compounded Mouthwash 6 ml PO Q2H PRN #200 ml PRN Reason: Mouth pain Comments: Head CT was unremarkable. Labs notable for anemia which is common associated with cancer treatment, and mild dehydration. Received IV fluids here. I am changing your prescription a bit to reformulate the Magic mouthwash as there is some evidence that topical morphine in addition to the other agents will be helpful. Do not swallow the Magic mouthwash. Call your doctor to arrange a follow-up appointment, make the next available appointment. In the interim, return anytime if worse or if new symptoms develop. Forms: PCP List Discharge Date/Time: 09/04/23 10:23
[2023-09-04 07:39] LABS: BASOPHILS % (AUTO) 0.2 %; HCT - HEMATOCRIT 29.2 % (42.0-52.0); HGB - HEMOGLOBIN 9.6 g/dL (14.0-18.0); LYMPHOCYTES # (AUTO) 1.4 10^3/uL (1.5-3.5); LYMPHOCYTES % (AUTO) 13.2 %; MEAN CORPUSCULAR HEMOGLOBIN 32.3 pg (27.0-31.0); MEAN CORPUSCULAR HGB CONC 32.9 g/dL (32.0-36.0); MEAN CORPUSCULAR VOLUME 98.3 fL (80.0-94.0); MEAN PLATELET VOLUME 8.9 fL (7.4-11.4); MONOCYTES # (AUTO) 1.2 10^3/uL (0.0-1.0); MONOCYTES % (AUTO) 11.5 %; NEUTROPHILS # (AUTO) 7.6 10^3/uL (1.5-6.6); NEUTROPHILS % (AUTO) 74.8 %; PLT - PLATELET COUNT 412 10^3/uL (130-450); RED BLOOD COUNT 2.97 10^6/uL (4.70-6.10); RED CELL DISTRIBUTION WIDTH 16.3 % (12.0-15.0); WHITE BLOOD COUNT 10.2 x10^3/uL (4.8-10.8)
[2023-09-04 07:57] LABS: ALBUMIN 3.7 g/dL (3.2-5.5); ALBUMIN/GLOBULIN RATIO 1.2 (1.0-2.2); BILIRUBIN,TOTAL 0.3 mg/dL (0.2-1.0); CREATININE 0.9 mg/dL (0.6-1.3); MAGNESIUM 1.8 mg/dL (1.7-2.3); TOTAL PROTEIN 6.8 g/dL (6.4-8.9)
--- NOTE | 2023-09-04 08:07 | CT Report ---
PROCEDURE: HEAD WO INDICATIONS: dysequilibrium TECHNIQUE: Noncontrast 4.5 mm thick angled axial sections acquired from the foramen magnum to the vertex. For r adiation dose reduction, the following was used: automated exposure control, adjustment of mA and/or kV according to patient size. COMPARISON: Head CT dated 04/10/2023. FINDINGS: Image quality: Excellent. CSF spaces: Basal cisterns are patent. No extra-axial fluid collections. Ventricles are normal in size and shape. Brain: No midline shift. No intracranial masses or hemorrhage. Small-white matter interface is norm al. Age-related volume loss and mild, age-appropriate small vessel ischemic change. Skull and face: Calvarium and visualized facial bones are intact, without suspicious lesions. Sinuses: Visualized sinuses and mastoids are clear. IMPRESSION: No acute intracranial pathology. Reviewed by: Donnell Crowell MD on 09/04/2023 8:05 AM PST Approved by: Donnell Crowell MD on 09/04/2023 8:05 AM PST Station ID: [id number]
[2023-09-04 09:40] VITALS: BP 148/75; O2SAT 96
== END 2023-09-04 10:23 | disposition home or self-care (01) ==
LOC: ED 06:08
DX: K12.31 Oral mucositis (ulcerative) due to antineoplastic therapy (principal); T45.1X5A Adverse effect of antineoplastic and immunosuppressive drugs, initial encounter; I10 Essential (primary) hypertension; E86.0 Dehydration; R42 Dizziness and giddiness
CPT/HCPCS: 36415; 80053; 83735; 85025; 96361; 96374; 99283

== ENCOUNTER 2023-09-14 21:35 | Emergency (ER) | payer MEDICARE, OTHER ==
[2023-09-14] MEDS ORDERED: LIDOCAINE VISCOUS 2% 15 ML UDC MM STA (22:33)
[2023-09-14] MEDS ORDERED: HYDROcodone/ACETAM 7.5 MG/325 MG 15 ML UDC PO STA (22:33)
[2023-09-14] MEDS ORDERED: MAG HYDROX/AL HYDROX/SIMETH 30 ML UDC PO STA (22:33)
[2023-09-14] MEDS ORDERED: SODIUM CHLORIDE 0.9% 1,000 ML IV STA (22:33)
--- NOTE | 2023-09-14 22:34 | ED Physician Documentation ---
History of Present Illness - Stated complaint Stated Complaint: MOUTH PX,UNABLE TO SWALLOW - Chief complaint Chief Complaint: General - History obtained from History obtained from: Patient, Family - Additonal information Additional information: 83-year-old male with history of bladder cancer on Keytruda presents by private vehicle from home with his for oral sores. Patient states that he has had horrible sores in his mouth and his throat that have been very difficult to control at home. He has been taking dexamethasone, Magic mouthwash, nystatin without significant improvement. The last time he was in the emergency department the previous ER physician came up with a concoction to try, however it had to be compounded at a pharmacy and they have not been able to pick this medication up because the nearest pharmacy that could compound it is far away. They have an appointment in 3 days with ENT and in 4 days with the patient's oncologist, however they are here today to see if any different medications can be prescribed for pain in the interim. Patient has had difficulty swallowing his pills and eating enough due to his symptoms. Review of Systems Constitutional: denies: Fever, Chills Throat: reports: Oral lesions / sores, Sore throat. denies: Dental pain / toothache, Swollen tonsils Cardiac: denies: Chest pain / pressure, Palpitations Respiratory: denies: Dyspnea, Cough, Wheezing : denies: Dysuria, Frequency, Hesitancy PD PAST MEDICAL HISTORY - Past Medical History Cardiovascular: Hypertension Respiratory: Sleep apnea Neuro: Seizure disorder Endocrine/Autoimmune: None GI: GERD, Pancreatitis : Kidney stones, Other HEENT: Chronic hearing loss, Other Psych: Anxiety Musculoskeletal: Osteoarthritis, Chronic back pain Derm: Psoriasis - Past Surgical History Past Surgical History: Yes General: Cholecystectomy, Appendectomy, Bowel surgery, Splenectomy Ortho: Hip replacement, Arthroscopic surgery HEENT: Tonsil/Adenoidectomy, Other - Present Medications Home Medications: Ambulatory Orders Medication Instructions Recorded Confirmed Aspirin EC [Ecotrin] 81 mg PO DAILY 06/27/13 02/12/23 Vit A,C & E/Lutein/Minerals 1 each PO DAILY 06/27/13 02/12/23 [Ocuvite with Lutein Tablet] Cyanocobalamin (Vitamin B-12) 1,000 mcg PO DAILY 02/09/14 02/12/23 [Vitamin B-12] Cholecalciferol (Vitamin D3) 2,000 units ORAL DAILY 05/03/14 02/12/23 [Vitamin D3] levOCARNitine tartrate 250 mg PO BID 05/09/18 02/12/23 [l-Carnitine] polyethylene glycoL 3350 [Miralax] 17 gm PO DAILY 01/06/19 02/12/23 Finasteride 5 mg PO DAILY PM 02/21/19 02/12/23 Mirabegron [Myrbetriq] 50 mg PO DAILY PM 02/21/19 02/12/23 Famotidine [Pepcid] 20 mg PO BID 07/28/19 02/12/23 Phenytoin Infatab [Dilantin 100 mg PO QPM 07/28/19 02/19/23 Infatab] [place]-3/Dha/Epa/Fish Oil [Fish Oil 1,000 mg PO DAILY 11/29/21 02/12/23 1,000 mg Softgel] Oxycodone Myristate [Xtampza ER] 13.5 mg PO TID 11/29/21 02/12/23 oxyCODONE [Roxicodone] 5 mg PO TID PRN 12/01/21 02/12/23 LORazepam [Ativan] 0.5 mg PO QID PRN 02/07/23 02/12/23 Oxycodone HCl 20 mg PO TID PRN 02/07/23 02/12/23 Phenytoin [Dilantin] 200 mg PO HS 02/07/23 02/12/23 Lactobacillus Acidophilus 1 each PO DAILY #4 tablet 02/10/23 02/12/23 [Probiotic Acidophilus] Metoprolol Succinate [Toprol Xl] 12.5 mg PO DAILY #15 tab 02/10/23 02/12/23 Simethicone [Mylicon] 80 mg PO QID #60 tab 02/10/23 02/12/23 metroNIDAZOLE [Flagyl] 500 mg PO TID #12 tab 02/10/23 02/12/23 oxyCODONE ER [OxyCONTIN] 10 mg PO BID PRN #16 tab 02/10/23 02/12/23 Acetaminophen [Tylenol] 325 mg PO Q6H PRN 02/12/23 02/12/23 Diclofenac Sodium 1% Gel [Voltaren 2 - 4 gm TOP QID PRN 02/14/23 02/14/23 Gel] Loperamide [Imodium] 2 mg PO QID PRN #15 cap 02/19/23 cefuroxime axetiL [Ceftin] 500 mg PO BID #20 tab 02/19/23 Cefdinir 300 mg PO BID #20 cap 04/10/23 levoFLOXacin [Levofloxacin] 250 mg PO DAILY #10 tablet 04/13/23 levoFLOXacin [Levofloxacin] 500 mg PO DAILY #9 tablet 06/13/23 Lidocaine HCl/Pf [Lidocaine HCl 2% 0.5 ml PO QID PRN #20 ml 08/09/23 200 mg/10 ml] dexAMETHasone [Dexamethasone] 0.5 mg PO QID #200 ml 08/09/23 Compounded Mouthwash 6 ml PO Q2H PRN #200 ml 09/04/23 Morphine Oral Soln [Roxanol] 10 mg PO Q4H PRN #15 ml 09/15/23 - Allergies Allergies/Adverse Reactions: Allergies Allergy/AdvReac Type Severity Reaction Status Date / Time amitriptyline [Amitriptyline] Allergy Intermediate Hallucinati Verified 09/14/23 21:53 ons heparinoids Allergy Intermediate Rash Verified 09/14/23 21:53 baclofen Allergy Unknown Verified 09/14/23 21:53 celecoxib Allergy Unknown Verified 09/14/23 21:53 divalproex sodium Allergy pancreatiti Verified 09/14/23 21:53 [From Depakote] s glucosamine Allergy Unknown Verified 09/14/23 21:53 levetiracetam [From Keppra] Allergy Unknown Verified 09/14/23 21:53 naproxen Allergy GI pain Verified 09/14/23 21:53 oxcarbazepine Allergy Unknown Verified 09/14/23 21:53 [From Trileptal] pregabalin [From Lyrica] Allergy pancreatiti Verified 09/14/23 21:53 s - Social History Does the pt smoke?: No Smoking Status: Never smoker Does the pt drink ETOH?: Yes Does the pt have substance abuse?: No - Immunizations Immunizations are current?: Yes - POLST Patient has POLST: No POLST Status: Full Code PD ED PE NORMAL - Vitals Vital signs reviewed: Yes - General General: Alert and oriented X 3, Other (frail) - HEENT HEENT: Atraumatic, Other (extensive blistering sores on lips and in mouth. No trismus, no pooling of secretions, voice normal (per patient and )) - Cardiac Cardiac: RRR - Respiratory Respiratory: No respiratory distress, Clear bilaterally - Abdomen Abdomen: Soft, Non tender - Extremities Extremities: No deformity, No tenderness to palpate, Normal ROM s pain - Neuro Neuro: Alert and oriented X 3, barker peeler 2-12 intact, No motor deficit, Normal speech - Psych Psych: Normal mood, Normal affect Results - Vitals Vitals: Vital Signs - 24 hr 09/14/23 09/14/23 09/15/23 21:39 22:06 01:10 Temperature 36.5 C 37.0 C 36.5 C Heart Rate 66 62 60 Respiratory 17 14 16 Rate Blood Pressure 141/65 H 154/74 H 137/71 H O2 Saturation 98 99 98 Oxygen O2 Source Room air - Labs Labs: Laboratory Tests 09/14/23 09/14/23 23:00 23:00 WBC 9.8 RBC 2.87 L Hgb 9.2 L Hct 28.2 L MCV 98.3 H MCH 32.1 H MCHC 32.6 RDW 15.6 H Plt Count 394 MPV 9.9 Neut # (Auto) 7.5 H Lymph # (Auto) 1.0 L [place] # (Auto) 1.2 H Eos # (Auto) 0.0 Baso # (Auto) 0.0 Absolute Nucleated RBC 0.00 Nucleated RBC % 0.0 Sodium 134 L Potassium 3.9 Chloride 99 L Carbon Dioxide 29 Anion Gap 6.0 BUN 26 H Creatinine 0.8 Estimated GFR (MDRD) 92 Glucose 96 Calcium 10.2 Total Bilirubin 0.3 AST 14 ALT 10 Alkaline Phosphatase 103 Total Protein 6.8 Albumin 3.5 Globulin 3.3 Albumin/Globulin Ratio 1.1 PD Medical Decision Making - ED course Complexity details: reviewed old records, reviewed results, re-evaluated patient, considered differential, d/w patient, d/w family ED course: Patient with mouth sores from his chemotherapy drug presenting for continued pain from his mouth sores. Patient's primary concern today is the pain from his oral sores and he is here today to see if anything else can be done about his pain control. Patient is already on most possible medications, however states that the previous compound prescribed by a physician had morphine in it, which was unable to be obtained at a local pharmacy. Since patient has had difficulty with eating and swallowing I will order labs to assess for hydration and electrolyte status. Liter of IV fluids ordered. Patient resting comfortably in bed, laboratory work appears to be consistent with patient's baseline. He has received an liter of IV fluids and received oral medications for pain. I will order a prescription of liquid morphine to be added to patient's Magic mouthwash regimen. was advised to monitor for signs of airway compromise or excessive somnolence with this medication. states that she is grateful for the medication and she is hopeful that it will help control his pain until he can see his ENT doctor in 3 days. ED return precautions discussed at bedside. Departure - Departure Disposition: Home, Self Care Clinical Impression: Mouth sores Bladder cancer Qualifiers: Bladder location: unspecified site Qualified Code(s): C67.9 - Malignant neoplasm of bladder, unspecified Chemotherapy adverse reaction Qualifiers: Encounter type: sequela Qualified Code(s): T45.1X5S - Adverse effect of antineoplastic and immunosuppressive drugs, sequela Condition: Stable Prescriptions: Morphine Oral Soln [Roxanol] 10 mg PO Q4H PRN #15 ml PRN Reason: pain Comments: KEEP USING THE MAGIC MOUTHWASH PRESCRIBED. THE ORAL MORPHINE MAY HELP. KEEP YOUR FOLLOW UP APPOINTMENT ON 09/17 WITH ENT SCHEDULED. Forms: PCP List Discharge Date/Time: 09/15/23 01:15
[2023-09-14 23:04] LABS: HGB - HEMOGLOBIN 9.2 g/dL (14.0-18.0); MONOCYTES # (AUTO) 1.2 10^3/uL (0.0-1.0); WHITE BLOOD COUNT 9.8 x10^3/uL (4.8-10.8)
[2023-09-14 23:48] LABS: ALBUMIN 3.5 g/dL (3.2-5.5); ALBUMIN/GLOBULIN RATIO 1.1 (1.0-2.2); BILIRUBIN,TOTAL 0.3 mg/dL (0.2-1.0); CALCIUM 10.2 mg/dL (8.5-10.3); CREATININE 0.8 mg/dL (0.6-1.3); POTASSIUM 3.9 mmol/L (3.5-4.5); TOTAL PROTEIN 6.8 g/dL (6.4-8.9)
[2023-09-15 00:44] LABS: BASOPHILS % (AUTO) 0.2 %; HCT - HEMATOCRIT 28.2 % (42.0-52.0); LYMPHOCYTES % (AUTO) 10.3 %; MEAN CORPUSCULAR HEMOGLOBIN 32.1 pg (27.0-31.0); MEAN CORPUSCULAR HGB CONC 32.6 g/dL (32.0-36.0); MEAN CORPUSCULAR VOLUME 98.3 fL (80.0-94.0); MEAN PLATELET VOLUME 9.9 fL (7.4-11.4); MONOCYTES % (AUTO) 12.5 %; NEUTROPHILS # (AUTO) 7.5 10^3/uL (1.5-6.6); NEUTROPHILS % (AUTO) 76.6 %; PLT - PLATELET COUNT 394 10^3/uL (130-450); RED BLOOD COUNT 2.87 10^6/uL (4.70-6.10); RED CELL DISTRIBUTION WIDTH 15.6 % (12.0-15.0)
[2023-09-15 01:41] VITALS: BP 137/71; O2SAT 98
== END 2023-09-15 01:15 | disposition home or self-care (01) ==
LOC: ED 21:35
DX: K13.79 Other lesions of oral mucosa (principal); C67.9 Malignant neoplasm of bladder, unspecified; T45.1X5A Adverse effect of antineoplastic and immunosuppressive drugs, initial encounter; I10 Essential (primary) hypertension; Z79.82 Long term (current) use of aspirin; Z79.899 Other long term (current) drug therapy
CPT/HCPCS: 36415; 80053; 85025; 99283; 99285

== ENCOUNTER 2023-10-13 14:03 | Outpatient (CLI) | payer MEDICARE, OTHER | END 2023-10-13 14:04 | disposition home or self-care (01) | LOC: LAB.N 14:03 | PROVIDERS: ATTEND Family Medicine | DX: R56.9 Unspecified convulsions (principal) | CPT/HCPCS: 36415; 80185 ==

== ENCOUNTER 2023-11-02 05:29 | Outpatient (CLI) | payer MEDICARE, OTHER | END 2023-11-02 23:59 | disposition critical access hospital (66) | LOC: EMS 05:29 | DX: R42 Dizziness and giddiness (principal); R53.1 Weakness | CPT/HCPCS: A0425; A0429 ==

== ENCOUNTER 2023-11-02 05:46 | Emergency (ER) | payer MEDICARE, OTHER ==
[2023-11-02] MEDS ORDERED: SODIUM CHLORIDE 0.9% 1,000 ML IV STA ×2 (05:59→07:45)
--- NOTE | 2023-11-02 06:26 | ED Physician Documentation ---
History of Present Illness - Stated complaint Stated Complaint: DIZZY/LIGHTHEADED - Chief complaint Chief Complaint: Neuro - History obtained from History obtained from: Patient, EMS - Additonal information Additional information: 83-year-old male with history of bladder cancer, not currently on chemo or radiation presents by EMS from home for lightheadedness this morning. Patient does have trouble with eating and drinking due to ulcers in his mouth from his chemo, he states that he normally feels lightheaded, but is usually able to ambulate with a walker. This morning when he got out of bed he stated that he was so lightheaded that he knew that if he attempted to walk even with his walker he would fall. EMS notes positive orthostatic vital signs in route. Review of Systems Constitutional: denies: Fever, Chills Cardiac: denies: Chest pain / pressure, Palpitations, Calf pain Respiratory: denies: Dyspnea, Cough, Wheezing GI: denies: Abdominal Pain : denies: Dysuria, Frequency, Hesitancy Neurologic: reports: Generalized weakness. denies: Focal weakness, Numbness, Difficulty speaking, Near syncope, Syncope, Seizure, Headache, Head injury PD PAST MEDICAL HISTORY - Past Medical History Cardiovascular: Hypertension Respiratory: Sleep apnea Neuro: Seizure disorder, Other Endocrine/Autoimmune: None GI: GERD, Pancreatitis : Kidney stones, Other HEENT: Chronic hearing loss, Other Psych: Anxiety Musculoskeletal: Osteoarthritis, Chronic back pain Derm: Psoriasis - Past Surgical History Past Surgical History: Yes General: Cholecystectomy, Appendectomy, Bowel surgery, Splenectomy Ortho: Hip replacement, Arthroscopic surgery HEENT: Tonsil/Adenoidectomy, Other - Present Medications Home Medications: Ambulatory Orders Medication Instructions Recorded Confirmed Aspirin EC [Ecotrin] 81 mg PO DAILY 06/27/13 11/02/23 Vit A,C & E/Lutein/Minerals 1 each PO DAILY 06/27/13 11/02/23 [Ocuvite with Lutein Tablet] Cyanocobalamin (Vitamin B-12) 1,000 mcg PO DAILY 02/09/14 11/02/23 [Vitamin B-12] Cholecalciferol (Vitamin D3) 2,000 units ORAL DAILY 05/03/14 11/02/23 [Vitamin D3] polyethylene glycoL 3350 [Miralax] 17 gm PO DAILY 01/06/19 11/02/23 Finasteride 5 mg PO DAILY PM 02/21/19 11/02/23 Mirabegron [Myrbetriq] 50 mg PO DAILY PM 02/21/19 11/02/23 Famotidine [Pepcid] 20 mg PO BID 07/28/19 11/02/23 Phenytoin Infatab [Dilantin 50 mg PO QPM 07/28/19 11/02/23 Infatab] [place]-3/Dha/Epa/Fish Oil [Fish Oil 1,000 mg PO DAILY 11/29/21 11/02/23 1,000 mg Softgel] oxyCODONE [Roxicodone] 5 mg PO 5XD PRN 12/01/21 11/02/23 Phenytoin [Dilantin] 300 mg PO DAILY 02/07/23 11/02/23 Acetaminophen [Tylenol] 325 mg PO Q6H PRN 02/12/23 11/02/23 Diclofenac Sodium 1% Gel [Voltaren 2 - 4 gm TOP QID PRN 02/14/23 11/02/23 Gel] Oxycodone HCl 10 - 20 mg PO QID 10/19/23 11/02/23 Acyclovir 200 mg PO 5XD 11/02/23 11/02/23 Fluticasone [Flonase] 1 sprays JIM BID PRN 11/02/23 11/02/23 predniSONE [Deltasone] 30 mg PO DAILY 11/02/23 11/02/23 - Allergies Allergies/Adverse Reactions: Allergies Allergy/AdvReac Type Severity Reaction Status Date / Time amitriptyline [Amitriptyline] Allergy Intermediate Hallucinati Verified 11/02/23 05:50 ons heparinoids Allergy Intermediate Rash Verified 11/02/23 05:50 baclofen Allergy Unknown Verified 11/02/23 05:50 celecoxib Allergy Unknown Verified 11/02/23 05:50 divalproex sodium Allergy pancreatiti Verified 11/02/23 05:50 [From Depakote] s glucosamine Allergy Unknown Verified 11/02/23 05:50 levetiracetam [From Keppra] Allergy Unknown Verified 11/02/23 05:50 naproxen Allergy GI pain Verified 11/02/23 05:50 oxcarbazepine Allergy Unknown Verified 11/02/23 05:50 [From Trileptal] pregabalin [From Lyrica] Allergy pancreatiti Verified 11/02/23 05:50 s - Social History Does the pt smoke?: No Smoking Status: Never smoker Does the pt drink ETOH?: Yes Does the pt have substance abuse?: No - Immunizations Immunizations are current?: Yes - POLST Patient has POLST: No POLST Status: Full Code PD ED PE NORMAL - Vitals Vital signs reviewed: Yes - General General: Alert and oriented X 3, Other (Appears frail, chronically unwell) - Cardiac Cardiac: RRR, Strong equal pulses - Respiratory Respiratory: No respiratory distress, Clear bilaterally - Abdomen Abdomen: Soft, Non tender, Non distended - Derm Derm: Normal color, Warm and dry, No rash - Extremities Extremities: No deformity, No tenderness to palpate, Normal ROM s pain - Neuro Neuro: Alert and oriented X 3, 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, No motor deficit, Normal speech Results - Vitals Vitals: Vital Signs - 24 hr 11/02/23 11/02/23 11/02/23 05:50 06:29 06:38 Temperature 37.2 C 36.9 C 36.8 C Heart Rate 62 62 60 Respiratory 16 12 15 Rate Blood Pressure 158/81 H 134/70 H 134/70 H O2 Saturation 100 98 99 11/02/23 11/02/23 11/02/23 06:58 08:14 10:00 Temperature 36.6 C Heart Rate 62 63 62 Respiratory 15 12 11 L Rate Blood Pressure 134/70 H 163/86 H 135/56 H O2 Saturation 100 100 99 11/02/23 11/02/23 12:00 14:14 Temperature 36.8 C Heart Rate 63 72 Respiratory 12 18 Rate Blood Pressure 147/88 H 150/66 H O2 Saturation 100 99 Oxygen O2 Source Room air - EKG (time done) 0559 EKG releavant findings:: EKG personally interpreted by author of this note. Relevant findings are: Rate: Rate (enter#) (64) Rhythm: NSR Intervals: RBBB Ischemia: Normal ST segments - Labs Labs: Laboratory Tests 11/02/23 11/02/23 11/02/23 06:20 06:20 08:05 WBC 7.8 RBC 2.83 L Hgb 9.4 L Hct 29.0 L MCV 102.5 H MCH 33.2 H MCHC 32.4 RDW 15.3 H Plt Count 539 H MPV 9.3 Neut # (Auto) 5.8 Lymph # (Auto) 0.9 L [place] # (Auto) 1.0 Eos # (Auto) 0.0 Baso # (Auto) 0.0 Absolute Nucleated RBC 0.00 Nucleated RBC % 0.0 Sodium 137 Potassium 3.5 Chloride 103 Carbon Dioxide 28 Anion Gap 6.0 BUN 30 H Creatinine 0.6 Estimated GFR (MDRD) 128 Glucose 115 H Calcium 9.9 Magnesium 1.7 Total Bilirubin 0.3 AST 16 ALT 16 Alkaline Phosphatase 121 Troponin I High Sens 8.6 Total Protein 6.2 L Albumin 3.2 Globulin 3.0 Albumin/Globulin Ratio 1.1 Lipase < 10 L Urine Color YELLOW Urine Clarity SL. CLOUDY Urine pH 6.5 Ur Specific [place] <=1.005 Urine Protein NEGATIVE Urine Glucose (UA) NEGATIVE Urine Ketones NEGATIVE Urine Occult Blood MODERATE H Urine Nitrite NEGATIVE Urine Bilirubin NEGATIVE Urine Urobilinogen 0.2 (NORMAL) Ur Leukocyte Esterase LARGE H Urine RBC 0-5 Urine WBC >25 H Ur Squamous Epith Cells FEW Squamous Urine Bacteria Few Ur Microscopic Review INDICATED Urine Culture Comments INDICATED PD Medical Decision Making - ED course Complexity details: reviewed old records, reviewed results, re-evaluated patient, considered differential, d/w patient ED course: Generalized weakness after getting out of bed. Vital signs reviewed, unremarkable. Patient is chronically frail and weak from his bladder cancer that has not been very responsive to treatments. No focal neurologic deficit. Will order labs, IV fluids. Lab/imaging pending. Care of patient signed to Dr. Yap. Departure - Departure Disposition: 01 Home, Self Care Clinical Impression: Generalized weakness, Bladder cancer Condition: Stable Instructions: ED Weakness UKO Comments: You have been treated with IV fluids today and worked up with laboratory studies and x-ray, all of which were unremarkable for anything acute or serious. Given the fact that you are battling cancer, as well as dealing with the fracture of your humerus, it is not surprising that you are feeling weak and having some trepidation about caring for yourself. Because of this, we consulted our social media executive to speak with you today and you would like to go home at this point. Please do continue to work with your doctors as an outpatient on helping arrange any home help you may need as an outpatient. Please be sure you are drinking plenty of fluids and please continue your treatments and medications as usual. Forms: PCP List Discharge Date/Time: 11/02/23 14:14
[2023-11-02 06:47] LABS: BASOPHILS % (AUTO) 0.1 %; EOSINOPHILS % (AUTO) 0.3 %; HGB - HEMOGLOBIN 9.4 g/dL (14.0-18.0); LYMPHOCYTES # (AUTO) 0.9 10^3/uL (1.5-3.5); LYMPHOCYTES % (AUTO) 11.7 %; MEAN CORPUSCULAR HEMOGLOBIN 33.2 pg (27.0-31.0); MEAN CORPUSCULAR HGB CONC 32.4 g/dL (32.0-36.0); MEAN CORPUSCULAR VOLUME 102.5 fL (80.0-94.0); MEAN PLATELET VOLUME 9.3 fL (7.4-11.4); MONOCYTES % (AUTO) 12.6 %; NEUTROPHILS # (AUTO) 5.8 10^3/uL (1.5-6.6); NEUTROPHILS % (AUTO) 74.9 %; PLT - PLATELET COUNT 539 10^3/uL (130-450); RED BLOOD COUNT 2.83 10^6/uL (4.70-6.10); RED CELL DISTRIBUTION WIDTH 15.3 % (12.0-15.0); WHITE BLOOD COUNT 7.8 x10^3/uL (4.8-10.8)
[2023-11-02 07:06] LABS: TROPONIN I HIGH SENSITIVITY 8.6 ng/L (2.3-19.7)
[2023-11-02 07:07] LABS: ALBUMIN 3.2 g/dL (3.2-5.5); ALBUMIN/GLOBULIN RATIO 1.1 (1.0-2.2); ALKALINE PHOSPHATASE 121 IU/L (42-121); ALT ALANINE AMINOTRANSFERASE 16 IU/L (10-60); AST ASPARTATE AMINOTRANSFERASE 16 IU/L (10-42); BILIRUBIN,TOTAL 0.3 mg/dL (0.2-1.0); BUN - BLOOD UREA NITROGEN 30 mg/dL (6-20); CALCIUM 9.9 mg/dL (8.5-10.3); CARBON DIOXIDE - CO2 28 mmol/L (21-32); CHLORIDE 103 mmol/L (101-111); CREATININE 0.6 mg/dL (0.6-1.3); GFR - MDRD 128 (>89); GLUCOSE 115 mg/dL (74-104); MAGNESIUM 1.7 mg/dL (1.7-2.3); POTASSIUM 3.5 mmol/L (3.5-4.5); SODIUM 137 mmol/L (135-145); TOTAL PROTEIN 6.2 g/dL (6.4-8.9)
[2023-11-02 07:11] LABS: LIPASE < 10 U/L (11-82)
[2023-11-02 08:18] LABS: BILIRUBIN,URINE NEGATIVE (NEGATIVE); GLUCOSE, URINE (UA) NEGATIVE (NEGATIVE); KETONES,URINE (UA) NEGATIVE (NEGATIVE); LEUKOCYTE ESTERASE, URINE LARGE (NEGATIVE); NITRITE,URINE NEGATIVE (NEGATIVE); OCCULT BLOOD,URINE MODERATE (NEGATIVE); PH,URINE 6.5 PH (5.0-7.5); PROTEIN,URINE NEGATIVE (NEGATIVE); UROBILINOGEN,URINE 0.2 (NORMAL) E.U./dL (NORMAL)
[2023-11-02 08:20] LABS: CLARITY,URINE SL. CLOUDY (CLEAR)
[2023-11-02 08:29] LABS: BACTERIA,URINE Few /HPF (None Seen); RBC,URINE 0-5 /HPF (0-5); SQUAMOUS EPITHELIAL CELL,UR FEW Squamous (<= Few); WBC,URINE >25 /HPF (0-3)
--- NOTE | 2023-11-02 08:35 | XRAY Report ---
PROCEDURE: Chest 1V INDICATIONS: gen weakness TECHNIQUE: One view of the chest was acquired. COMPARISON: 10/19/2023 FINDINGS: Surgical changes and devices: Right IJ Mediport. Lungs and pleura: No pleural effusions or pneumothorax. Lungs are clear. Mediastinum: Mediastinal contours appear normal. Heart size is normal. Bones and chest wall: Left humeral neck fracture, chronic. No new fractures. No suspicious bone lesi ons. IMPRESSION: No acute cardiopulmonary disease. Final interpretation concordant with preliminary report. . Reviewed by: Fe Cruz MD on 11/02/2023 8:34 AM PST Approved by: Fe Cruz MD on 11/02/2023 8:34 AM PST Station ID: [id number]
[2023-11-02] MEDS ORDERED: oxyCODONE 5 MG TABLET PO STA (11:27)
[2023-11-02] MEDS ORDERED: diphenhydrAMINE 25 MG CAPSULE PO STA (11:27)
[2023-11-02] MEDS ORDERED: DEXAMETHASONE 10 MG/ML VIAL IVP STA (11:27)
[2023-11-02 14:18] VITALS: BP 150/66; O2SAT 99
--- NOTE | 2023-11-05 14:56 | ED Physician Documentation ---
ED Addendum - Addendum Addendum: 11/05/23 14:54 The patient's urine culture came back positive for Staph aureus greater than 100,000 colony-forming units. Enteric coccus 10-50,000 colony-forming units was also noted. The staph was sensitive to everything and I did send in a prescription for Bactrim for the patient to the [facility] pharmacy in [place]. His was notified at home by nursing staff. I have also added "urinary tract infection" to the patient's final impression from his visit. 11/05/23 14:55
== END 2023-11-02 14:14 | disposition home or self-care (01) ==
LOC: EDUNIT# → ED 05:46
DX: R53.1 Weakness (principal); N39.0 Urinary tract infection, site not specified; B95.61 Methicillin susceptible Staphylococcus aureus infection as the cause of diseases classified elsewhere; K12.31 Oral mucositis (ulcerative) due to antineoplastic therapy; C67.9 Malignant neoplasm of bladder, unspecified; S42.309D Unspecified fracture of shaft of humerus, unspecified arm, subsequent encounter for fracture with routine healing; X58.XXXD Exposure to other specified factors, subsequent encounter
CPT/HCPCS: 36415; 71045; 80053; 81001; 83690; 83735; 84484; 85025; 87086; 87181; 93005; 96361; 96374; 99284; A9270; 81003; 87077

== ENCOUNTER 2023-11-14 12:46 | Outpatient (CLI) | payer MEDICARE, OTHER | END 2023-11-14 12:47 | disposition home or self-care (01) | LOC: LAB.N 12:46 | PROVIDERS: ATTEND Family Medicine | DX: R56.9 Unspecified convulsions (principal) | CPT/HCPCS: 36415; 80185 ==

== ENCOUNTER 2023-11-17 18:00 | Outpatient (CLI) | payer MEDICARE, OTHER | END 2023-11-17 18:15 | disposition home or self-care (01) | LOC: LAB.N 18:00 | PROVIDERS: ATTEND Physician Assistant | DX: R19.5 Other fecal abnormalities (principal) | CPT/HCPCS: 87045; 87046; 87177; 87209; 87427 ==

== ENCOUNTER 2023-11-23 16:47 | Emergency (ER) | payer MEDICARE, OTHER ==
--- NOTE | 2023-11-23 18:33 | ED Physician Documentation ---
PD HPI ALTERED MENTAL STATUS - Stated complaint Stated Complaint: DIZZY/CATHETER ISSUE - Chief complaint Chief Complaint: Neuro - History obtained from History obtained from: Patient - Additional information Additional information: He has a history of bladder cancer. Not undergoing any treatment right now because he was intolerant of immunotherapy, he has been having a lot of trouble lately, he is currently maintained on prednisone and chronic pain regimen. He is here because he has had double vision for the last 3 days. That said he cannot tell me whether it is horizontal or vertical. He is having trouble walking and wonders if he might have a UTI. After some time we were talking he has noted bugs coming out of his ears and out of his skin. PD PAST MEDICAL HISTORY - Past Medical History Past Medical History: Yes Cardiovascular: Hypertension Respiratory: Sleep apnea Neuro: Seizure disorder, Other Endocrine/Autoimmune: None GI: GERD, Pancreatitis : Kidney stones, Other HEENT: Chronic hearing loss, Other Psych: Anxiety Musculoskeletal: Osteoarthritis, Chronic back pain Derm: Psoriasis Other Past Medical History: bladder cancer - Past Surgical History Past Surgical History: Yes General: Cholecystectomy, Appendectomy, Bowel surgery, Splenectomy Ortho: Hip replacement, Arthroscopic surgery HEENT: Tonsil/Adenoidectomy, Other - Present Medications Home Medications: Ambulatory Orders Medication Instructions Recorded Confirmed Aspirin EC [Ecotrin] 81 mg PO DAILY 06/27/13 11/23/23 Vit A,C & E/Lutein/Minerals 1 each PO DAILY 06/27/13 11/23/23 [Ocuvite with Lutein Tablet] Cyanocobalamin (Vitamin B-12) 1,000 mcg PO DAILY 02/09/14 11/23/23 [Vitamin B-12] Cholecalciferol (Vitamin D3) 2,000 units ORAL DAILY 05/03/14 11/23/23 [Vitamin D3] polyethylene glycoL 3350 [Miralax] 17 gm PO DAILY 01/06/19 11/23/23 Finasteride 5 mg PO DAILY PM 02/21/19 11/23/23 Mirabegron [Myrbetriq] 50 mg PO DAILY PM 02/21/19 11/23/23 Famotidine [Pepcid] 20 mg PO BID 07/28/19 11/23/23 Phenytoin Infatab [Dilantin 50 mg PO QPM 07/28/19 11/23/23 Infatab] [place]-3/Dha/Epa/Fish Oil [Fish Oil 1,000 mg PO DAILY 11/29/21 11/23/23 1,000 mg Softgel] oxyCODONE [Roxicodone] 5 mg PO Q4HR PRN 12/01/21 11/23/23 Phenytoin [Dilantin] 300 mg PO DAILY 02/07/23 11/23/23 Acetaminophen [Tylenol] 325 mg PO Q6H PRN 02/12/23 11/23/23 Diclofenac Sodium 1% Gel [Voltaren 2 - 4 gm TOP QID PRN 02/14/23 11/23/23 Gel] Oxycodone HCl 10 - 20 mg PO PRN PRN 10/19/23 11/23/23 Fluticasone [Flonase] 1 sprays JIM BID PRN 11/02/23 11/23/23 predniSONE [Deltasone] 30 mg PO DAILY 11/02/23 11/23/23 Fluconazole [Diflucan] 100 mg PO DAILY 11/23/23 11/23/23 Metoprolol Succinate [Toprol Xl] 12.5 mg PO DAILY 11/23/23 11/23/23 Penicillin V Potassium 500 mg PO Q6HR #40 tablet 11/23/23 - Allergies Allergies/Adverse Reactions: Allergies Allergy/AdvReac Type Severity Reaction Status Date / Time amitriptyline [Amitriptyline] Allergy Intermediate Hallucinati Verified 11/23/23 19:44 ons heparinoids Allergy Intermediate Rash Verified 11/23/23 19:44 baclofen Allergy Unknown Verified 11/23/23 19:44 celecoxib Allergy Unknown Verified 11/23/23 19:44 divalproex sodium Allergy pancreatiti Verified 11/23/23 19:44 [From Depakote] s glucosamine Allergy Unknown Verified 11/23/23 19:44 levetiracetam [From Keppra] Allergy Unknown Verified 11/23/23 19:44 naproxen Allergy GI pain Verified 11/23/23 19:44 oxcarbazepine Allergy Unknown Verified 11/23/23 19:44 [From Trileptal] pregabalin [From Lyrica] Allergy pancreatiti Verified 11/23/23 19:44 s - Social History Does the pt smoke?: No Smoking Status: Never smoker Does the pt drink ETOH?: Yes Does the pt have substance abuse?: No - Immunizations Immunizations are current?: Yes - POLST Patient has POLST: No POLST Status: Full Code PD ED PE NORMAL - Vitals Vital signs reviewed: Yes - General General: Alert and oriented X 3, No acute distress - HEENT HEENT: PERRL, EOMI, Other (He does have cataracts. I do not see any extraocular movement deficit. We are unable to recreate the diplopia with holding up of fingers at distance and any visual field.) - Neck Neck: Supple, no meningeal sign, No bony TTP - Cardiac Cardiac: RRR, No murmur - Respiratory Respiratory: No respiratory distress, Clear bilaterally - Abdomen Abdomen: Non tender - Extremities Extremities: No edema, No calf tenderness / cord - Neuro Neuro: Alert and oriented X 3 Eye Opening: Spontaneous Motor: Obeys Commands Verbal: Oriented GCS Score: 15 - Psych Psych: Normal mood, Normal affect Results - Vitals Vitals: Vital Signs - 24 hr 11/23/23 11/23/23 16:52 19:54 Temperature 36.9 C Heart Rate 68 64 Respiratory 16 16 Rate Blood Pressure 152/87 H 157/82 H O2 Saturation 98 99 Oxygen O2 Source Room air - Labs Labs: Laboratory Tests 11/23/23 11/23/23 11/23/23 18:42 18:42 19:36 WBC 11.5 H RBC 3.20 L Hgb 10.7 L Hct 32.7 L MCV 102.2 H MCH 33.4 H MCHC 32.7 RDW 14.6 Plt Count 443 MPV 9.0 Neut # (Auto) 10.4 H Lymph # (Auto) 0.4 L [place] # (Auto) 0.6 Eos # (Auto) 0.1 Baso # (Auto) 0.0 Absolute Nucleated RBC 0.00 Nucleated RBC % 0.0 Sodium 131 L Potassium 4.4 Chloride 99 L Carbon Dioxide 26 Anion Gap 6.0 BUN 26 H Creatinine 0.7 Estimated GFR (MDRD) 107 Glucose 150 H Calcium 10.2 Total Bilirubin 0.3 AST 15 ALT 9 L Alkaline Phosphatase 135 H Total Protein 7.1 Albumin 3.7 Globulin 3.4 Albumin/Globulin Ratio 1.1 Urine Color LT RED Urine Clarity TURBID Urine pH 7.0 Ur Specific [place] <=1.005 Urine Protein TRACE Urine Glucose (UA) NEGATIVE Urine Ketones NEGATIVE Urine Occult Blood LARGE H Urine Nitrite NEGATIVE Urine Bilirubin NEGATIVE Urine Urobilinogen 0.2 (NORMAL) Ur Leukocyte Esterase LARGE H Urine RBC TNTC H Urine WBC >25 H Urine WBC Clumps PRESENT Ur Squamous Epith Cells RARE Squamous Urine Bacteria Many H Ur Microscopic Review INDICATED Urine Culture Comments INDICATED - Rads (name of study) CT of the head was unremarkable Relevant Findings:: Final report received, EMP independent interpretation of test PD Medical Decision Making - ED course ED course: 83-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 He had numerous pictures and samples of the bugs that are coming out of various orifices. What he shows me is basically sloughed off skin and berries that he had been chewing on. 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 He does have evidence of UTI with pyuria and leukocytosis, chronic anemia, and no acute findings on CMP. Looking at prior cultures, penicillin should work just fine for his recent isolates and this is started and prescribed. He did seem to respond to counseling regarding delusional parasitosis and the fact that the bugs are not real. This may be partially from polypharmacy versus UTI. Departure - Departure Disposition: 01 Home, Self Care Clinical Impression: Delusions of parasitosis Urinary tract infection Qualifiers: Urinary tract infection type: catheter-associated UTI Indwelling urinary catheter type: indwelling urethral catheter Encounter type: initial encounter Qualified Code(s): T83.511A - Infection and inflammatory reaction due to indwelling urethral catheter, initial encounter Condition: Stable Record reviewed to determine appropriate education?: Yes Instructions: ED UTI Cystitis Male Prescriptions: Penicillin V Potassium 500 mg PO Q6HR #40 tablet Comments: I sent your prescription electronically to [facility] in [place]. We will culture your urine, the results should be done in 48-72 hours. If an antibiotic change is necessary we will call you. Return if worse in the meantime, especially if you develop increasing flank pain, fevers, or cannot keep down the medication. Follow-up with Dr. Veliz on Friday as scheduled. Forms: PCP List
[2023-11-23 18:49] LABS: BASOPHILS % (AUTO) 0.1 %; EOSINOPHILS # (AUTO) 0.1 10^3/uL (0.0-0.7); HCT - HEMATOCRIT 32.7 % (42.0-52.0); HGB - HEMOGLOBIN 10.7 g/dL (14.0-18.0); LYMPHOCYTES # (AUTO) 0.4 10^3/uL (1.5-3.5); LYMPHOCYTES % (AUTO) 3.4 %; MEAN CORPUSCULAR HEMOGLOBIN 33.4 pg (27.0-31.0); MEAN CORPUSCULAR HGB CONC 32.7 g/dL (32.0-36.0); MEAN CORPUSCULAR VOLUME 102.2 fL (80.0-94.0); MONOCYTES # (AUTO) 0.6 10^3/uL (0.0-1.0); NEUTROPHILS # (AUTO) 10.4 10^3/uL (1.5-6.6); NEUTROPHILS % (AUTO) 90.2 %; PLT - PLATELET COUNT 443 10^3/uL (130-450); RED CELL DISTRIBUTION WIDTH 14.6 % (12.0-15.0); WHITE BLOOD COUNT 11.5 x10^3/uL (4.8-10.8)
[2023-11-23 19:05] LABS: ALBUMIN 3.7 g/dL (3.2-5.5); ALBUMIN/GLOBULIN RATIO 1.1 (1.0-2.2); BILIRUBIN,TOTAL 0.3 mg/dL (0.2-1.0); CALCIUM 10.2 mg/dL (8.5-10.3); CREATININE 0.7 mg/dL (0.6-1.3); POTASSIUM 4.4 mmol/L (3.5-4.5); TOTAL PROTEIN 7.1 g/dL (6.4-8.9)
--- NOTE | 2023-11-23 19:19 | CT Report ---
PROCEDURE: Head WO INDICATIONS: dizzy TECHNIQUE: Noncontrast 4.5 mm thick angled axial sections acquired from the foramen magnum to the vertex. For r adiation dose reduction, the following was used: automated exposure control, adjustment of mA and/or kV according to patient size. COMPARISON: None. FINDINGS: Image quality: Excellent. CSF spaces: Basal cisterns are patent. No extra-axial fluid collections. Ventricles are normal in size and shape. Brain: No midline shift. No intracranial masses or hemorrhage. Small-white matter interface is norm al. Skull and face: Calvarium and visualized facial bones are intact, without suspicious lesions. Sinuses: Visualized sinuses and mastoids are clear. IMPRESSION: No acute intracranial pathology. Reviewed by: Fe Cruz MD on 11/23/2023 7:17 PM PST Approved by: Fe Cruz MD on 11/23/2023 7:17 PM [facility] Station ID: [id number]
[2023-11-23 19:51] LABS: BILIRUBIN,URINE NEGATIVE (NEGATIVE); GLUCOSE, URINE (UA) NEGATIVE (NEGATIVE); KETONES,URINE (UA) NEGATIVE (NEGATIVE); LEUKOCYTE ESTERASE, URINE LARGE (NEGATIVE); NITRITE,URINE NEGATIVE (NEGATIVE); OCCULT BLOOD,URINE LARGE (NEGATIVE); PROTEIN,URINE TRACE mg/dL (NEGATIVE); UROBILINOGEN,URINE 0.2 (NORMAL) E.U./dL (NORMAL)
[2023-11-23 19:56] VITALS: BP 157/82; O2SAT 99
[2023-11-23 20:03] LABS: CLARITY,URINE TURBID (CLEAR)
[2023-11-23 20:04] LABS: BACTERIA,URINE Many /HPF (None Seen); RBC,URINE TNTC /HPF (0-5); SQUAMOUS EPITHELIAL CELL,UR RARE Squamous (<= Few); WBC CLUMPS,URINE PRESENT; WBC,URINE >25 /HPF (0-3)
[2023-11-23] MEDS: PENICILLIN VK 250 MG TABLET PO STA (20:31)
--- NOTE | 2023-11-27 05:07 | ED Physician Documentation ---
ED Addendum - Addendum Addendum: 11/27/23 05:06 I was presented with a urine culture report showing sensitivity to penicillin G. Patient was discharged home on penicillin VK which should be appropriate for treatment. No further action was taken.
== END 2023-11-23 20:42 | disposition home or self-care (01) ==
LOC: ED 16:47
DX: T83.511A Infection and inflammatory reaction due to indwelling urethral catheter, initial encounter (principal); F22 Delusional disorders; C67.9 Malignant neoplasm of bladder, unspecified; I10 Essential (primary) hypertension; Z79.82 Long term (current) use of aspirin; Z79.899 Other long term (current) drug therapy
CPT/HCPCS: 36415; 51702; 70450; 80053; 81001; 85025; 87077; 87086; 87181; 99284; A9270; 81003

== ENCOUNTER 2023-11-28 16:11 | Outpatient (CLI) | payer MEDICARE, OTHER | END 2023-11-28 16:12 | disposition home or self-care (01) | LOC: LAB.N 16:11 | PROVIDERS: ATTEND Family Medicine | DX: R56.9 Unspecified convulsions (principal) | CPT/HCPCS: 36415; 80185 ==

== ENCOUNTER 2024-01-01 08:00 | Outpatient (CLI) | payer MEDICARE, OTHER | END 2024-01-01 23:59 | disposition home or self-care (01) | LOC: LAB.R 08:00 | PROVIDERS: ATTEND Family Medicine | DX: G40.909 Epilepsy, unspecified, not intractable, without status epilepticus (principal) | CPT/HCPCS: 80185 ==

== ENCOUNTER 2024-01-08 08:00 | Outpatient (CLI) | payer MEDICARE, OTHER | END 2024-01-08 23:59 | disposition home or self-care (01) | LOC: LAB.R 08:00 | PROVIDERS: ATTEND Family Medicine | DX: G40.909 Epilepsy, unspecified, not intractable, without status epilepticus (principal) | CPT/HCPCS: 80185 ==

== ENCOUNTER 2024-01-16 08:00 | Outpatient (CLI) | payer MEDICARE, OTHER | END 2024-01-16 23:59 | disposition home or self-care (01) | LOC: LAB.R 08:00 | PROVIDERS: ATTEND Family Medicine | DX: G40.909 Epilepsy, unspecified, not intractable, without status epilepticus (principal) | CPT/HCPCS: 80185 ==

== ENCOUNTER 2024-01-30 08:00 | Outpatient (CLI) | payer MEDICARE, OTHER | END 2024-01-30 23:59 | disposition home or self-care (01) | LOC: LAB.R 08:00 | PROVIDERS: ATTEND Family Medicine | DX: G40.909 Epilepsy, unspecified, not intractable, without status epilepticus (principal) | CPT/HCPCS: 36415; 80185 ==

== ENCOUNTER 2024-02-09 08:00 | Outpatient (CLI) | payer MEDICARE, OTHER | END 2024-02-09 23:59 | disposition home or self-care (01) | LOC: LAB.R 08:00 | PROVIDERS: ATTEND Nurse Practitioner Adult Health | DX: G40.909 Epilepsy, unspecified, not intractable, without status epilepticus (principal) | CPT/HCPCS: 80185 ==

== ENCOUNTER 2024-02-16 08:00 | Outpatient (CLI) | payer MEDICARE, OTHER | END 2024-02-16 23:59 | disposition home or self-care (01) | LOC: LAB.R 08:00 | PROVIDERS: ATTEND Nurse Practitioner Adult Health | DX: G40.909 Epilepsy, unspecified, not intractable, without status epilepticus (principal) | CPT/HCPCS: 80185 ==

== ENCOUNTER 2024-02-24 08:00 | Outpatient (CLI) | payer MEDICARE, OTHER | END 2024-02-24 23:59 | disposition home or self-care (01) | LOC: LAB.R 08:00 | PROVIDERS: ATTEND Family Medicine | DX: G40.909 Epilepsy, unspecified, not intractable, without status epilepticus (principal) | CPT/HCPCS: 80185 ==

== ENCOUNTER 2024-03-04 08:00 | Outpatient (CLI) | payer MEDICARE, OTHER | END 2024-03-04 23:59 | disposition home or self-care (01) | LOC: LAB.R 08:00 | PROVIDERS: ATTEND Family Medicine | DX: G40.909 Epilepsy, unspecified, not intractable, without status epilepticus (principal) | CPT/HCPCS: 80185 ==

== ENCOUNTER 2024-03-25 08:00 | Outpatient (CLI) | payer MEDICARE, OTHER | END 2024-03-25 23:59 | disposition home or self-care (01) | LOC: LAB 08:00 | PROVIDERS: ATTEND Family Medicine | DX: G40.909 Epilepsy, unspecified, not intractable, without status epilepticus (principal) | CPT/HCPCS: 36415; 80185 ==